=== PATIENT | male | born 1940 | race Caucasian/White ===

== ENCOUNTER 2016-11-29 14:34 | Emergency (ER) | payer MEDICAID, OTHER ==
[~2016-11-29] VITALS: Ht 160 cm; Wt 77.1 kg
[2016-11-29] MEDS ORDERED: ATEN100T PO (15:00)
[2016-11-29] MEDS ORDERED: MYRB50TA PO (15:00)
[2016-11-29] MEDS ORDERED: ALLO15TA PO (15:00)
[2016-11-29] MEDS ORDERED: CARB10TACH PO (15:00)
[2016-11-29] MEDS ORDERED: OMEP40CA2 PO (15:00)
[2016-11-29] MEDS ORDERED: ATOR1TAB18 PO (15:00)
[2016-11-29] MEDS ORDERED: CLOP75TA2 PO (15:00)
[2016-11-29 16:52] LABS: BASO % 0.3 % (0.0-1.0); EOS # 0.2 K/mm3 (0.0-0.50); EOS % 2.6 % (0.0-3.0); LARGE UNSTAINED CELL # 0.3 K/mm3 (0.0-0.4); LARGE UNSTAINED CELL % 5.2 % (0.0-4.0); LYMPH # 1.4 K/mm3 (1.5-4.5); LYMPH % 21.7 % (24.0-44.0); MEAN CORPUSCULAR HEMOGLOBIN 32.5 pg (27.0-33.0); MONO # 0.6 K/mm3 (0.0-0.8); MONO % 8.9 % (0.0-5.0); NEUTROPHILS # 3.9 K/mm3 (1.8-7.7); NEUTROPHILS % 61.4 % (36.0-66.0); PLATELET COUNT, AUTOMATED 200 k/mm3 (150-450); RED CELL DISTRIBUTION WIDTH 14.7 % (11.5-14.5); WHITE BLOOD COUNT 6.4 K/mm3 (4.0-10.0)
[2016-11-29 17:11] LABS: CALCIUM LEVEL 8.1 MG/DL (8.8-10.2); CREATININE FOR GFR 1.35 MG/DL (0.70-1.30); GLOMERULAR FILTRATION RATE 54.7 (>42); POTASSIUM SERUM 4.2 MEQ/L (3.5-5.1)
[2016-11-29 18:55] VITALS: BP 137/74
== END 2016-11-29 18:56 | disposition home or self-care (01) ==
LOC: EDBD 14:34 → M ED 15:48
DX: I95.1 Orthostatic hypotension (principal); F17.210 Nicotine dependence, cigarettes, uncomplicated; Z86.73 Personal history of transient ischemic attack (TIA), and cerebral infarction without residual deficits; I51.9 Heart disease, unspecified; Z79.01 Long term (current) use of anticoagulants; I10 Essential (primary) hypertension

== ENCOUNTER → 2017-03-15 | Outpatient (REF) | payer OTHER ==
[~2017-03-15] MED LIST: ALLO15TA PO; ATEN100T PO; ATOR80TA59 PO; CARB10TACH PO; CLOP75TA2 PO; MYRB50TA PO; OMEP40CA2 PO
== END ==
LOC: M LAB REF 12:42
PROVIDERS: ATTEND Physician Assistant
DX: M79.642 Pain in left hand (principal)

== ENCOUNTER → 2017-08-21 | Outpatient (CLI) | payer BC ==
[2017-08-21 11:35] LABS: HEMATOCRIT 40.3 % (42.0-52.0); HEMOGLOBIN 13.4 g/dl (14.0-18.0); MEAN CORPUSCULAR HEMOGLOBIN 29.3 pg (27.0-33.0); MEAN CORPUSCULAR HGB CONC 33.3 g/dl (32.0-36.5); MEAN CORPUSCULAR VOLUME 88.2 fl (80.0-96.0); PLATELET COUNT, AUTOMATED 393 10^3/uL (150-450); RED BLOOD COUNT 4.57 10^6/uL (4.30-6.10); RED CELL DISTRIBUTION WIDTH 14.6 % (11.5-14.5)
[2017-08-21 11:38] LABS: POSITIVE DIFF POS FLAG; WHITE BLOOD COUNT 13.9 10^3/uL (4.0-10.0)
[2017-08-21 11:39] LABS: ADD MANUAL DIFFER YES; DIFF SLIDE NUMBER 119
[2017-08-21 11:58] LABS: ALBUMIN 3.6 GM/DL (3.2-5.2); ALBUMIN/GLOBULIN RATIO 1.16 (1.00-1.93); ALKALINE PHOSPHATASE 181 U/L (45-117); ALT/SGPT 15 U/L (12-78); ANION GAP 9 MEQ/L (8-16); AST/SGOT 15 U/L (7-37); BILIRUBIN,TOTAL 0.6 MG/DL (0.2-1.0); BLOOD UREA NITROGEN 12 MG/DL (7-18); CALCIUM LEVEL 8.5 MG/DL (8.8-10.2); CARBON DIOXIDE LEVEL 28 MEQ/L (21-32); CHLORIDE LEVEL 98 MEQ/L (98-107); CREATININE FOR GFR 1.13 MG/DL (0.70-1.30); GLOMERULAR FILTRATION RATE > 60.0 (>42); GLUCOSE, FASTING 94 MG/DL (83-110); LIPASE 77 U/L (73-393); SODIUM LEVEL 135 MEQ/L (136-145); TOTAL PROTEIN 6.7 GM/DL (6.4-8.2)
[2017-08-21 12:15] LABS: ATYPICAL LYMPH 17 % (0-5); BASOPHILS 1 % (0-4); EOSINOPHILS 5 % (0-5); LYMPHOCYTES 21 % (16-52); MONOCYTES 7 % (0-8); NEUTROPHILS 49 % (35-75)
[2017-08-21 12:29] LABS: PLATELET ESTIMATE NORMAL (NORMAL)
== END ==
LOC: M LAB 10:58
DX: R19.7 Diarrhea, unspecified (principal)
CPT/HCPCS: 83690

== ENCOUNTER 2017-08-22 07:54 | Emergency (ER) | payer BC | END 2017-08-22 09:06 | disposition home or self-care (01) | LOC: M ED 07:54 | DX: R19.7 Diarrhea, unspecified (principal); L30.8 Other specified dermatitis; R05 Cough; I10 Essential (primary) hypertension; R56.9 Unspecified convulsions; R29.6 Repeated falls; R39.81 Functional urinary incontinence; Z79.01 Long term (current) use of anticoagulants; Z79.899 Other long term (current) drug therapy; Z98.890 Other specified postprocedural states; Z85.89 Personal history of malignant neoplasm of other organs and systems | CPT/HCPCS: 99282 ==

== ENCOUNTER 2017-09-09 16:45 | Emergency (ER) | payer BC ==
[2017-09-09 19:07] LABS: BASO # 0.1 10^3/uL (0.0-0.2); BASO % 0.5 % (0.0-1.0); EOS % 8.8 % (0.0-3.0); HEMATOCRIT 40.6 % (42.0-52.0); HEMOGLOBIN 13.5 g/dl (14.0-18.0); IMMATURE GRANULOCYTE % 0.2 % (0-3.0); LYMPH # 3.8 10^3/uL (1.5-4.5); LYMPH % 34.6 % (24.0-44.0); MEAN CORPUSCULAR HGB CONC 33.3 g/dl (32.0-36.5); MEAN CORPUSCULAR VOLUME 87.3 fl (80.0-96.0); MONO # 0.7 10^3/uL (0.0-0.8); MONO % 6.7 % (0.0-5.0); NEUTROPHILS # 5.5 10^3/uL (1.8-7.7); NEUTROPHILS % 49.2 % (36.0-66.0); PLATELET COUNT, AUTOMATED 218 10^3/uL (150-450); RED BLOOD COUNT 4.65 10^6/uL (4.30-6.10); RED CELL DISTRIBUTION WIDTH 14.5 % (11.5-14.5); WHITE BLOOD COUNT 11.1 10^3/uL (4.0-10.0)
[2017-09-09 19:53] LABS: ALBUMIN 3.7 GM/DL (3.2-5.2); ALBUMIN/GLOBULIN RATIO 1.28 (1.00-1.93); ALKALINE PHOSPHATASE 194 U/L (45-117); ALT/SGPT 19 U/L (12-78); ANION GAP 9 MEQ/L (8-16); AST/SGOT 16 U/L (7-37); BILIRUBIN,DIRECT < 0.1 MG/DL (0.0-0.2); BILIRUBIN,TOTAL 0.2 MG/DL (0.2-1.0); BLOOD UREA NITROGEN 13 MG/DL (7-18); CALCIUM LEVEL 8.5 MG/DL (8.8-10.2); CARBON DIOXIDE LEVEL 28 MEQ/L (21-32); CHLORIDE LEVEL 101 MEQ/L (98-107); CREATININE FOR GFR 1.05 MG/DL (0.70-1.30); GLOMERULAR FILTRATION RATE > 60.0 (>42); GLUCOSE, FASTING 101 MG/DL (70-100); POTASSIUM SERUM 4.3 MEQ/L (3.5-5.1); SODIUM LEVEL 138 MEQ/L (136-145); TOTAL PROTEIN 6.6 GM/DL (6.4-8.2)
[2017-09-09 19:55] LABS: ERYTHROCYTE SEDIMENTATION RATE 7 mm/hr (0-20)
[2017-09-09] MEDS: cloNIDine 0.2 MG TAB PO (20:19)
== END 2017-09-09 21:15 | disposition home or self-care (01) ==
LOC: M ED 16:45
DX: I10 Essential (primary) hypertension (principal); Z79.01 Long term (current) use of anticoagulants; Z79.899 Other long term (current) drug therapy; Z86.73 Personal history of transient ischemic attack (TIA), and cerebral infarction without residual deficits; Z87.891 Personal history of nicotine dependence; Z98.890 Other specified postprocedural states
CPT/HCPCS: 71045

== ENCOUNTER 2017-10-14 08:43 | Emergency (ER) | payer MEDICARE, BC | END 2017-10-14 09:35 | disposition home or self-care (01) | LOC: M ED 08:43 | DX: L73.9 Follicular disorder, unspecified (principal); I10 Essential (primary) hypertension; Z79.899 Other long term (current) drug therapy; Z87.891 Personal history of nicotine dependence | CPT/HCPCS: 99282 ==

== ENCOUNTER 2017-11-15 07:32 | Emergency (ER) | payer MEDICARE ==
[2017-11-15 08:52] LABS: BASO # 0.1 10^3/uL (0.0-0.2); BASO % 0.9 % (0.0-1.0); EOS % 19.5 % (0.0-3.0); HEMATOCRIT 36.9 % (42.0-52.0); HEMOGLOBIN 12.1 g/dl (13.5-17.5); IMMATURE GRANULOCYTE % 0.2 % (0-3.0); LYMPH # 2.8 10^3/uL (1.5-4.5); LYMPH % 27.3 % (24.0-44.0); MEAN CORPUSCULAR HEMOGLOBIN 28.9 pg (27.0-33.0); MEAN CORPUSCULAR HGB CONC 32.8 g/dl (32.0-36.5); MEAN CORPUSCULAR VOLUME 88.3 fl (80.0-96.0); MONO # 0.8 10^3/uL (0.0-0.8); MONO % 7.5 % (0.0-5.0); NEUTROPHILS # 4.6 10^3/uL (1.8-7.7); NEUTROPHILS % 44.6 % (36.0-66.0); PLATELET COUNT, AUTOMATED 251 10^3/uL (150-450); RED BLOOD COUNT 4.18 10^6/uL (4.30-6.10); RED CELL DISTRIBUTION WIDTH 14.5 % (11.5-14.5); WHITE BLOOD COUNT 10.3 10^3/uL (4.0-10.0)
[2017-11-15 09:04] LABS: INR 0.88
[2017-11-15 09:14] LABS: ERYTHROCYTE SEDIMENTATION RATE 9 mm/hr (0-20)
[2017-11-15 09:22] LABS: LACTIC ACID SEPSIS PROTOCOL 1.4 MMOL/L (0.4-2.0)
[2017-11-15 09:44] LABS: ALBUMIN 3.7 GM/DL (3.2-5.2); ALBUMIN/GLOBULIN RATIO 1.28 (1.00-1.93); ALKALINE PHOSPHATASE 279 U/L (45-117); ALT/SGPT 15 U/L (12-78); ANION GAP 8 MEQ/L (8-16); AST/SGOT 18 U/L (7-37); BILIRUBIN,DIRECT < 0.1 MG/DL (0.0-0.2); BILIRUBIN,TOTAL 0.3 MG/DL (0.2-1.0); BLOOD UREA NITROGEN 12 MG/DL (7-18); C REACTIVE PROTEIN QUANTITATIV 1.52 MG/DL (0.00-0.30); CALCIUM LEVEL 8.5 MG/DL (8.8-10.2); CARBON DIOXIDE LEVEL 28 MEQ/L (21-32); CHLORIDE LEVEL 102 MEQ/L (98-107); CREATININE FOR GFR 1.08 MG/DL (0.70-1.30); GLOMERULAR FILTRATION RATE > 60.0 (>42); GLUCOSE, FASTING 96 MG/DL (70-100); POTASSIUM SERUM 3.9 MEQ/L (3.5-5.1); SODIUM LEVEL 138 MEQ/L (136-145); TOTAL PROTEIN 6.6 GM/DL (6.4-8.2)
[2017-11-15] MEDS ORDERED: ISOVUE-370 76% 100ML VIAL (Q9967) As Ordered (09:46)
[2017-11-15] MEDS ORDERED: FLUORESCEIN OPHTH 1 MG STRIP As Ordered (10:31)
[2017-11-15] MEDS: VANCOMYCIN HCL 1,000 MG, VIAL MATE ADAPTER 1 EACH in D5W 250 ML IV (10:50)
== END 2017-11-15 12:00 | disposition home or self-care (01) ==
LOC: M ED 07:32
DX: L03.211 Cellulitis of face (principal); I10 Essential (primary) hypertension; R60.0 Localized edema; Z79.01 Long term (current) use of anticoagulants

== ENCOUNTER 2017-11-16 08:25 | Inpatient (IN) | payer MEDICARE ==
[2017-11-16] MEDS: NS 1,000 ML IV (09:17)
[2017-11-16] MEDS: VANCOMYCIN HCL 1,000 MG, VIAL MATE ADAPTER 1 EACH in D5W 250 ML IV (09:17)
[2017-11-16 09:18] LABS: BASO # 0.1 10^3/uL (0.0-0.2); EOS # 2.4 10^3/uL (0.0-0.50); HEMATOCRIT 39.1 % (42.0-52.0); HEMOGLOBIN 12.9 g/dl (13.5-17.5); IMMATURE GRANULOCYTE % 0.1 % (0-3.0); LYMPH % 29.7 % (24.0-44.0); MEAN CORPUSCULAR HEMOGLOBIN 29.6 pg (27.0-33.0); MEAN CORPUSCULAR VOLUME 89.7 fl (80.0-96.0); MONO # 0.8 10^3/uL (0.0-0.8); MONO % 7.9 % (0.0-5.0); NEUTROPHILS # 3.7 10^3/uL (1.8-7.7); NEUTROPHILS % 37.5 % (36.0-66.0); PLATELET COUNT, AUTOMATED 257 10^3/uL (150-450); RED BLOOD COUNT 4.36 10^6/uL (4.30-6.10); RED CELL DISTRIBUTION WIDTH 14.6 % (11.5-14.5); WHITE BLOOD COUNT 9.9 10^3/uL (4.0-10.0)
[2017-11-16 09:39] LABS: EOS % 23.8 % (0.0-3.0); POSITIVE DIFF POS FLAG
[2017-11-16 09:50] LABS: ALBUMIN 3.8 GM/DL (3.2-5.2); ALBUMIN/GLOBULIN RATIO 1.31 (1.00-1.93); ALKALINE PHOSPHATASE 296 U/L (45-117); ALT/SGPT 18 U/L (12-78); ANION GAP 5 MEQ/L (8-16); AST/SGOT 25 U/L (7-37); BILIRUBIN,DIRECT < 0.1 MG/DL (0.0-0.2); BILIRUBIN,TOTAL 0.4 MG/DL (0.2-1.0); BLOOD UREA NITROGEN 10 MG/DL (7-18); CALCIUM LEVEL 8.7 MG/DL (8.8-10.2); CARBON DIOXIDE LEVEL 29 MEQ/L (21-32); CHLORIDE LEVEL 103 MEQ/L (98-107); CREATININE FOR GFR 1.08 MG/DL (0.70-1.30); GLOMERULAR FILTRATION RATE > 60.0 (>42); GLUCOSE, FASTING 94 MG/DL (70-100); POTASSIUM SERUM 4.5 MEQ/L (3.5-5.1); SODIUM LEVEL 137 MEQ/L (136-145); TOTAL PROTEIN 6.7 GM/DL (6.4-8.2)
[2017-11-16 09:50] LABS: LACTIC ACID SEPSIS PROTOCOL 1.6 MMOL/L (0.4-2.0)
[2017-11-16] MEDS ORDERED: ONDANSETRON 4MG/2ML VIAL (J2405) IV (11:15)
[2017-11-16 13:04] LABS: C REACTIVE PROTEIN QUANTITATIV 1.53 MG/DL (0.00-0.30)
[2017-11-16] MEDS: HEPARIN SOD (PORCINE) 5000 UNITS/ML VIAL SC ×2 (14:03→21:15)
[2017-11-16] MEDS: carBAMazepine 100 MG *1/2* TAB PO ×2 (17:27→21:15)
[2017-11-16] MEDS: ACETAMINOPHEN TAB 650MG DOSE (2X325MG) PO (18:14)
[2017-11-16] MEDS: MUPIROCIN 2% OINT 22 GM TUBE TOP (21:16)
[2017-11-17] MEDS: HEPARIN SOD (PORCINE) 5000 UNITS/ML VIAL SC ×3 (05:45→21:25)
[2017-11-17 07:21] LABS: HEMATOCRIT 36.3 % (42.0-52.0); HEMOGLOBIN 11.9 g/dl (13.5-17.5); MEAN CORPUSCULAR HEMOGLOBIN 28.7 pg (27.0-33.0); MEAN CORPUSCULAR HGB CONC 32.8 g/dl (32.0-36.5); MEAN CORPUSCULAR VOLUME 87.5 fl (80.0-96.0); PLATELET COUNT, AUTOMATED 256 10^3/uL (150-450); RED BLOOD COUNT 4.15 10^6/uL (4.30-6.10); RED CELL DISTRIBUTION WIDTH 14.4 % (11.5-14.5)
[2017-11-17 07:38] LABS: ANION GAP 4 MEQ/L (8-16); BLOOD UREA NITROGEN 11 MG/DL (7-18); C REACTIVE PROTEIN QUANTITATIV 1.25 MG/DL (0.00-0.30); CALCIUM LEVEL 8.8 MG/DL (8.8-10.2); CARBON DIOXIDE LEVEL 30 MEQ/L (21-32); CHLORIDE LEVEL 105 MEQ/L (98-107); CREATININE FOR GFR 0.98 MG/DL (0.70-1.30); GLOMERULAR FILTRATION RATE > 60.0 (>42); GLUCOSE, FASTING 92 MG/DL (70-100); MAGNESIUM LEVEL 2.2 MG/DL (1.8-2.4); POTASSIUM SERUM 3.8 MEQ/L (3.5-5.1); SODIUM LEVEL 139 MEQ/L (136-145)
[2017-11-17] MEDS: carBAMazepine 100 MG *1/2* TAB PO ×3 (08:41→21:24)
[2017-11-17] MEDS: OMEPRAZOLE 20 MG CAP PO (08:41)
[2017-11-17] MEDS: ATORVASTATIN 20 MG TAB PO (08:41)
[2017-11-17] MEDS: CLOPIDOGREL 75 MG TAB PO (08:42)
[2017-11-17] MEDS: ATENOLOL 50 MG TAB PO (08:42)
[2017-11-17] MEDS: VANCOMYCIN HCL 1,000 MG, VIAL MATE ADAPTER 1 EACH in D5W 250 ML IV (08:42)
[2017-11-17] MEDS: ALLOPURINOL 300 MG TAB PO (08:42)
[2017-11-17] MEDS: MUPIROCIN 2% OINT 22 GM TUBE TOP ×2 (08:42→21:24)
[2017-11-17] MEDS: POLYVINYL ALCOHOL OPHTH SOLN 15 ML(LIQUITEARS) OU (21:25)
[2017-11-17] MEDS: ACETAMINOPHEN TAB 650MG DOSE (2X325MG) PO (21:28)
[2017-11-18] MEDS: HEPARIN SOD (PORCINE) 5000 UNITS/ML VIAL SC ×3 (05:39→20:38)
[2017-11-18 08:15] LABS: HEMATOCRIT 35.3 % (42.0-52.0); HEMOGLOBIN 11.6 g/dl (13.5-17.5); MEAN CORPUSCULAR HGB CONC 32.9 g/dl (32.0-36.5); MEAN CORPUSCULAR VOLUME 88.3 fl (80.0-96.0); PLATELET COUNT, AUTOMATED 227 10^3/uL (150-450); RED CELL DISTRIBUTION WIDTH 14.4 % (11.5-14.5); WHITE BLOOD COUNT 8.5 10^3/uL (4.0-10.0)
[2017-11-18 08:32] LABS: ANION GAP 6 MEQ/L (8-16); BLOOD UREA NITROGEN 12 MG/DL (7-18); CALCIUM LEVEL 8.6 MG/DL (8.8-10.2); CARBON DIOXIDE LEVEL 29 MEQ/L (21-32); CHLORIDE LEVEL 104 MEQ/L (98-107); CREATININE FOR GFR 1.08 MG/DL (0.70-1.30); GLOMERULAR FILTRATION RATE > 60.0 (>42); GLUCOSE, FASTING 153 MG/DL (70-100); MAGNESIUM LEVEL 2.3 MG/DL (1.8-2.4); POTASSIUM SERUM 3.8 MEQ/L (3.5-5.1); SODIUM LEVEL 139 MEQ/L (136-145); VANCOMYCIN LEVEL TROUGH 5.8 UG/ML (10.0-20.0)
[2017-11-18] MEDS: ALLOPURINOL 300 MG TAB PO (09:01)
[2017-11-18] MEDS: CLOPIDOGREL 75 MG TAB PO (09:01)
[2017-11-18] MEDS: OMEPRAZOLE 20 MG CAP PO (09:01)
[2017-11-18] MEDS: carBAMazepine 100 MG *1/2* TAB PO ×3 (09:01→20:37)
[2017-11-18] MEDS: MUPIROCIN 2% OINT 22 GM TUBE TOP ×2 (09:01→20:38)
[2017-11-18] MEDS: ATENOLOL 50 MG TAB PO (09:01)
[2017-11-18] MEDS: VANCOMYCIN HCL 1,000 MG, VIAL MATE ADAPTER 1 EACH in D5W 250 ML IV ×3 (09:01→20:38)
[2017-11-18] MEDS: ATORVASTATIN 20 MG TAB PO (09:01)
[2017-11-19] MEDS: HEPARIN SOD (PORCINE) 5000 UNITS/ML VIAL SC ×3 (05:41→21:37)
[2017-11-19 06:28] LABS: BASO # 0.1 10^3/uL (0.0-0.2); BASO % 0.6 % (0.0-1.0); EOS # 2.2 10^3/uL (0.0-0.50); HEMATOCRIT 34.9 % (42.0-52.0); HEMOGLOBIN 11.5 g/dl (13.5-17.5); IMMATURE GRANULOCYTE % 0.2 % (0-3.0); LYMPH # 2.9 10^3/uL (1.5-4.5); LYMPH % 29.7 % (24.0-44.0); MEAN CORPUSCULAR HEMOGLOBIN 29.2 pg (27.0-33.0); MEAN CORPUSCULAR VOLUME 88.6 fl (80.0-96.0); MONO # 0.9 10^3/uL (0.0-0.8); MONO % 8.7 % (0.0-5.0); NEUTROPHILS # 3.8 10^3/uL (1.8-7.7); NEUTROPHILS % 38.9 % (36.0-66.0); PLATELET COUNT, AUTOMATED 238 10^3/uL (150-450); RED BLOOD COUNT 3.94 10^6/uL (4.30-6.10); RED CELL DISTRIBUTION WIDTH 14.2 % (11.5-14.5); WHITE BLOOD COUNT 9.8 10^3/uL (4.0-10.0)
[2017-11-19 06:29] LABS: EOS % 21.9 % (0.0-3.0); POSITIVE DIFF POS FLAG
[2017-11-19 06:57] LABS: ANION GAP 5 MEQ/L (8-16); BLOOD UREA NITROGEN 10 MG/DL (7-18); C REACTIVE PROTEIN QUANTITATIV 1.06 MG/DL (0.00-0.30); CALCIUM LEVEL 8.5 MG/DL (8.8-10.2); CARBON DIOXIDE LEVEL 30 MEQ/L (21-32); CHLORIDE LEVEL 99 MEQ/L (98-107); CREATININE FOR GFR 0.98 MG/DL (0.70-1.30); GLOMERULAR FILTRATION RATE > 60.0 (>42); GLUCOSE, FASTING 99 MG/DL (70-100); MAGNESIUM LEVEL 2.2 MG/DL (1.8-2.4); POTASSIUM SERUM 3.8 MEQ/L (3.5-5.1); SODIUM LEVEL 134 MEQ/L (136-145)
[2017-11-19] MEDS: VANCOMYCIN HCL 1,000 MG, VIAL MATE ADAPTER 1 EACH in D5W 250 ML IV (09:16)
[2017-11-19] MEDS: carBAMazepine 100 MG *1/2* TAB PO ×3 (09:16→21:37)
[2017-11-19] MEDS: ATORVASTATIN 20 MG TAB PO (09:17)
[2017-11-19] MEDS: ALLOPURINOL 300 MG TAB PO (09:17)
[2017-11-19] MEDS: ATENOLOL 50 MG TAB PO (09:17)
[2017-11-19] MEDS: CLOPIDOGREL 75 MG TAB PO (09:17)
[2017-11-19] MEDS: OMEPRAZOLE 20 MG CAP PO (09:17)
[2017-11-19] MEDS: MUPIROCIN 2% OINT 22 GM TUBE TOP ×2 (09:18→21:36)
[2017-11-19] MEDS: predniSONE 20 MG TAB PO (15:23)
[2017-11-20 06:00] LABS: HEMATOCRIT 38.5 % (42.0-52.0); HEMOGLOBIN 12.7 g/dl (13.5-17.5); MEAN CORPUSCULAR HEMOGLOBIN 28.5 pg (27.0-33.0); MEAN CORPUSCULAR VOLUME 86.5 fl (80.0-96.0); PLATELET COUNT, AUTOMATED 261 10^3/uL (150-450); RED BLOOD COUNT 4.45 10^6/uL (4.30-6.10); RED CELL DISTRIBUTION WIDTH 13.9 % (11.5-14.5); WHITE BLOOD COUNT 8.8 10^3/uL (4.0-10.0)
[2017-11-20] MEDS: HEPARIN SOD (PORCINE) 5000 UNITS/ML VIAL SC (06:02)
[2017-11-20 06:17] LABS: ANION GAP 6 MEQ/L (8-16); BLOOD UREA NITROGEN 11 MG/DL (7-18); C REACTIVE PROTEIN QUANTITATIV 1.05 MG/DL (0.00-0.30); CARBON DIOXIDE LEVEL 30 MEQ/L (21-32); CHLORIDE LEVEL 100 MEQ/L (98-107); CREATININE FOR GFR 0.96 MG/DL (0.70-1.30); GLOMERULAR FILTRATION RATE > 60.0 (>42); GLUCOSE, FASTING 98 MG/DL (70-100); MAGNESIUM LEVEL 2.4 MG/DL (1.8-2.4); SODIUM LEVEL 136 MEQ/L (136-145)
[2017-11-20] MEDS: ATENOLOL 50 MG TAB PO (06:37)
[2017-11-20] MEDS: MUPIROCIN 2% OINT 22 GM TUBE TOP (09:00)
[2017-11-20] MEDS: CLOPIDOGREL 75 MG TAB PO (09:54)
[2017-11-20] MEDS: OMEPRAZOLE 20 MG CAP PO (09:55)
[2017-11-20] MEDS: predniSONE 20 MG TAB PO (09:55)
[2017-11-20] MEDS: ATORVASTATIN 20 MG TAB PO (09:56)
[2017-11-20] MEDS: carBAMazepine 100 MG *1/2* TAB PO (09:56)
[2017-11-20] MEDS: FUROSEMIDE 40 MG/4 ML VIAL (J1940) IV (11:18)
== END 2017-11-20 13:34 | disposition home health service (06) | DRG 607 ==
LOC: M ED 08:25 → M ED INP 11:03 → M MSPAV 13:25
DX: L27.0 Generalized skin eruption due to drugs and medicaments taken internally (principal); C91.90 Lymphoid leukemia, unspecified not having achieved remission; E78.5 Hyperlipidemia, unspecified; G40.909 Epilepsy, unspecified, not intractable, without status epilepticus; I10 Essential (primary) hypertension; R60.0 Localized edema; M10.9 Gout, unspecified; R29.6 Repeated falls; D72.1 Eosinophilia; T42.1X5A Adverse effect of iminostilbenes, initial encounter; T50.4X5A Adverse effect of drugs affecting uric acid metabolism, initial encounter; Z86.73 Personal history of transient ischemic attack (TIA), and cerebral infarction without residual deficits; Z79.02 Long term (current) use of antithrombotics/antiplatelets; Z87.891 Personal history of nicotine dependence; Z79.899 Other long term (current) drug therapy

== ENCOUNTER → 2017-12-09 | Outpatient (CLI) | payer MEDICARE | LOC: M RAD 12:15 | DX: R60.9 Edema, unspecified (principal) | CPT/HCPCS: 93971 ==

== ENCOUNTER → 2017-12-16 | Outpatient (REF) | payer BC ==
[2017-12-16 20:47] LABS: ALBUMIN 3.7 GM/DL (3.2-5.2); ALBUMIN/GLOBULIN RATIO 1.32 (1.00-1.93); ALKALINE PHOSPHATASE 282 U/L (45-117); ALT/SGPT 19 U/L (12-78); ANION GAP 7 MEQ/L (8-16); AST/SGOT 16 U/L (7-37); BILIRUBIN,TOTAL 0.3 MG/DL (0.2-1.0); BLOOD UREA NITROGEN 12 MG/DL (7-18); CALCIUM LEVEL 8.5 MG/DL (8.8-10.2); CARBON DIOXIDE LEVEL 31 MEQ/L (21-32); CHLORIDE LEVEL 103 MEQ/L (98-107); CREATININE FOR GFR 1.28 MG/DL (0.70-1.30); GLUCOSE, FASTING 119 MG/DL (70-100); POTASSIUM SERUM 3.5 MEQ/L (3.5-5.1); SODIUM LEVEL 141 MEQ/L (136-145); TOTAL PROTEIN 6.5 GM/DL (6.4-8.2)
[2017-12-16 20:54] LABS: BASO # 0.1 10^3/uL (0.0-0.2); BASO % 0.5 % (0.0-1.0); EOS # 3.6 10^3/uL (0.0-0.50); HEMATOCRIT 38.9 % (42.0-52.0); HEMOGLOBIN 12.7 g/dl (13.5-17.5); IMMATURE GRANULOCYTE % 0.2 % (0-3.0); LYMPH # 2.5 10^3/uL (1.5-4.5); LYMPH % 23.9 % (24.0-44.0); MEAN CORPUSCULAR HEMOGLOBIN 29.2 pg (27.0-33.0); MEAN CORPUSCULAR HGB CONC 32.6 g/dl (32.0-36.5); MEAN CORPUSCULAR VOLUME 89.4 fl (80.0-96.0); MONO # 0.9 10^3/uL (0.0-0.8); MONO % 8.3 % (0.0-5.0); NEUTROPHILS # 3.5 10^3/uL (1.8-7.7); NEUTROPHILS % 32.8 % (36.0-66.0); PLATELET COUNT, AUTOMATED 239 10^3/uL (150-450); RED BLOOD COUNT 4.35 10^6/uL (4.30-6.10); RED CELL DISTRIBUTION WIDTH 13.9 % (11.5-14.5); WHITE BLOOD COUNT 10.6 10^3/uL (4.0-10.0)
[2017-12-16 21:24] LABS: EOS % 34.3 % (0.0-3.0); POSITIVE DIFF POS FLAG
== END ==
LOC: M SFHCLERA 16:17
DX: L30.8 Other specified dermatitis (principal)
CPT/HCPCS: 80053

== ENCOUNTER → 2017-12-28 | Outpatient (REF) | payer BC ==
[2017-12-30 00:06] LABS: TISSUE TRANSGLUTAMINASE IgG <2 U/mL (0-5)
== END ==
LOC: M SFHCLERA 09:07
DX: L13.9 Bullous disorder, unspecified (principal)
CPT/HCPCS: 86256

== ENCOUNTER → 2018-01-03 | Outpatient (REF) | payer BC, OTHER | LOC: M SFHCLERA 18:04 | DX: L29.9 Pruritus, unspecified (principal) | CPT/HCPCS: 88300 ==

== ENCOUNTER → 2018-01-26 | Outpatient (REF) | payer OTHER | LOC: M SFHCADAM 08:24 | DX: R63.0 Anorexia (principal); R74.8 Abnormal levels of other serum enzymes; Z53.8 Procedure and treatment not carried out for other reasons ==

== ENCOUNTER → 2018-01-30 | Outpatient (CLI) | payer OTHER ==
[2018-01-30 18:58] LABS: ALBUMIN 3.5 GM/DL (3.2-5.2); ALKALINE PHOSPHATASE 220 U/L (45-117); ALT/SGPT 26 U/L (12-78); ANION GAP 9 MEQ/L (8-16); AST/SGOT 21 U/L (7-37); BILIRUBIN,TOTAL 0.3 MG/DL (0.2-1.0); BLOOD UREA NITROGEN 21 MG/DL (7-18); CALCIUM LEVEL 8.2 MG/DL (8.8-10.2); CARBON DIOXIDE LEVEL 27 MEQ/L (21-32); CHLORIDE LEVEL 108 MEQ/L (98-107); CREATININE FOR GFR 1.42 MG/DL (0.70-1.30); FREE T4 0.79 NG/DL (0.76-1.46); GAMMA GLUTAMYLTRANSPEPTIDASE 67 U/L (15-85); GLOMERULAR FILTRATION RATE 51.5 (>42); GLUCOSE, FASTING 113 MG/DL (70-100); POTASSIUM SERUM 4.3 MEQ/L (3.5-5.1); SODIUM LEVEL 144 MEQ/L (136-145)
[2018-01-31 09:06] LABS: TOTAL 25(OH) VITAMIN D 18.1 NG/ML (30.0-100.0)
== END ==
LOC: M ADAMS 08:00
DX: R63.0 Anorexia (principal); R74.8 Abnormal levels of other serum enzymes
CPT/HCPCS: 82977

== ENCOUNTER → 2018-02-07 | Outpatient (REF) | payer OTHER | LOC: M SFHCLERA 09:19 | DX: I87.322 Chronic venous hypertension (idiopathic) with inflammation of left lower extremity (principal) | CPT/HCPCS: 87077; 87186 ==

== ENCOUNTER → 2018-02-14 | Outpatient (CLI) | payer OTHER | LOC: M RAD 14:14 | DX: R60.0 Localized edema (principal) | CPT/HCPCS: 93971 ==

== ENCOUNTER 2018-02-20 04:32 | Emergency (ER) | payer OTHER ==
[2018-02-20] MEDS: traMADol 50 MG TAB PO (06:53)
== END 2018-02-20 08:18 | disposition home or self-care (01) ==
LOC: M ED 04:32
DX: S93.411A Sprain of calcaneofibular ligament of right ankle, initial encounter (principal); X50.1XXA Overexertion from prolonged static or awkward postures, initial encounter; Y92.099 Unspecified place in other non-institutional residence as the place of occurrence of the external cause; Y93.9 Activity, unspecified; Y99.9 Unspecified external cause status; I10 Essential (primary) hypertension; N40.0 Benign prostatic hyperplasia without lower urinary tract symptoms; G89.29 Other chronic pain; M54.9 Dorsalgia, unspecified; Z85.6 Personal history of leukemia; M77.41 Metatarsalgia, right foot; M77.31 Calcaneal spur, right foot; Z79.899 Other long term (current) drug therapy
CPT/HCPCS: 73610

== ENCOUNTER → 2018-03-02 | Outpatient (CLI) | payer OTHER | LOC: M RAD 10:27 | DX: S92.351A Displaced fracture of fifth metatarsal bone, right foot, initial encounter for closed fracture (principal); X58.XXXA Exposure to other specified factors, initial encounter; Y92.59 Other trade areas as the place of occurrence of the external cause | CPT/HCPCS: 73700 ==

== ENCOUNTER 2018-05-22 21:10 | Emergency (ER) | payer OTHER ==
[2018-05-22] MEDS: NITROGLYCERIN 2% OINT 1 GM *U/D* PKT TOP (22:35)
[2018-05-22 22:44] LABS: HEMATOCRIT 39.4 % (42.0-52.0); HEMOGLOBIN 12.7 g/dl (13.5-17.5); MEAN CORPUSCULAR HEMOGLOBIN 28.4 pg (27.0-33.0); MEAN CORPUSCULAR HGB CONC 32.2 g/dl (32.0-36.5); MEAN CORPUSCULAR VOLUME 88.1 fl (80.0-96.0); PLATELET COUNT, AUTOMATED 258 10^3/uL (150-450); RED BLOOD COUNT 4.47 10^6/uL (4.30-6.10); RED CELL DISTRIBUTION WIDTH 15.5 % (11.5-14.5); WHITE BLOOD COUNT 14.1 10^3/uL (4.0-10.0)
[2018-05-22 22:54] LABS: INR 0.94; PROTHROMBIN TIME 12.7 SECONDS (12.1-14.4)
[2018-05-22 22:55] LABS: POSITIVE DIFF POS FLAG; POSITIVE MORPH POS FLAG
[2018-05-22 22:56] LABS: ADD MANUAL DIFFER YES; DIFF SLIDE NUMBER 161
[2018-05-22 23:00] LABS: ATYPICAL LYMPH 9 % (0-5); EOSINOPHILS 30 % (0-5); LYMPHOCYTES 21 % (16-52); MONOCYTES 5 % (0-8); NEUTROPHILS 35 % (35-75)
[2018-05-22 23:01] LABS: PLATELET ESTIMATE NORMAL (NORMAL)
[2018-05-22 23:15] LABS: ALBUMIN 3.4 GM/DL (3.2-5.2); ALBUMIN/GLOBULIN RATIO 1.17 (1.00-1.93); ALKALINE PHOSPHATASE 263 U/L (45-117); ALT/SGPT 16 U/L (12-78); ANION GAP 8 MEQ/L (8-16); AST/SGOT 16 U/L (7-37); BILIRUBIN,DIRECT < 0.1 MG/DL (0.0-0.2); BILIRUBIN,TOTAL 0.2 MG/DL (0.2-1.0); BLOOD UREA NITROGEN 22 MG/DL (7-18); CALCIUM LEVEL 7.9 MG/DL (8.8-10.2); CARBON DIOXIDE LEVEL 28 MEQ/L (21-32); CHLORIDE LEVEL 107 MEQ/L (98-107); CPK CREATINE PHOSPHOKINASE 70 U/L (39-308); CREATININE FOR GFR 1.26 MG/DL (0.70-1.30); GLOMERULAR FILTRATION RATE 59.1 (>42); GLUCOSE, FASTING 83 MG/DL (70-100); MB/CK RELATIVE INDEX 2.14 (< OR =4); NT-PRO BNP 1251 PG/ML (<450); POTASSIUM SERUM 4.2 MEQ/L (3.5-5.1); SODIUM LEVEL 143 MEQ/L (136-145); THYROXINE (T4) 6.5 UG/DL (4.5-12.0); TOTAL PROTEIN 6.3 GM/DL (6.4-8.2); TROPONIN I < 0.02 NG/ML (< 0.10)
[2018-05-22 23:24] LABS: LACTIC ACID SEPSIS PROTOCOL 0.8 MMOL/L (0.4-2.0)
[2018-05-23] MEDS: FUROSEMIDE 40 MG/4 ML VIAL (J1940) IV
== END 2018-05-23 01:23 | disposition home or self-care (01) ==
LOC: M ED 05-23 01:23
DX: I50.9 Heart failure, unspecified (principal); R60.9 Edema, unspecified; R56.9 Unspecified convulsions; Z86.73 Personal history of transient ischemic attack (TIA), and cerebral infarction without residual deficits; Z79.899 Other long term (current) drug therapy; Z79.82 Long term (current) use of aspirin; Z87.891 Personal history of nicotine dependence
CPT/HCPCS: J1940

== ENCOUNTER → 2018-05-23 | Outpatient (CLI) | payer OTHER | LOC: M CARPUL 10:53 | DX: R60.9 Edema, unspecified (principal) | CPT/HCPCS: 93306 ==

== ENCOUNTER 2018-05-25 22:08 | Inpatient (IN) | payer OTHER ==
[2018-05-26 00:38] LABS: HEMOGLOBIN 12.2 g/dl (13.5-17.5); MEAN CORPUSCULAR HGB CONC 31.3 g/dl (32.0-36.5); MEAN CORPUSCULAR VOLUME 89.7 fl (80.0-96.0); PLATELET COUNT, AUTOMATED 229 10^3/uL (150-450); RED BLOOD COUNT 4.35 10^6/uL (4.30-6.10); RED CELL DISTRIBUTION WIDTH 15.9 % (11.5-14.5)
[2018-05-26 00:39] LABS: ADD MANUAL DIFFER YES; DIFF SLIDE NUMBER 90; POSITIVE DIFF POS FLAG; POSITIVE MORPH POS FLAG; WHITE BLOOD COUNT 16.9 10^3/uL (4.0-10.0)
[2018-05-26 01:04] LABS: ANISOCYTOSIS 1+; ATYPICAL LYMPH 4 % (0-5); BASOPHILS 2 % (0-4); EOSINOPHILS 23 % (0-5); HYPOCHROMASIA 1+; LYMPHOCYTES 22 % (16-52); MONOCYTES 8 % (0-8); NEUTROPHILS 41 % (35-75); PLATELET ESTIMATE NORMAL (NORMAL)
[2018-05-26 01:08] LABS: OVALOCYTES 1+; SMUDGE CELLS 1+
[2018-05-26 02:05] LABS: ALBUMIN 2.9 GM/DL (3.2-5.2); ALBUMIN/GLOBULIN RATIO 1.26 (1.00-1.93); ALKALINE PHOSPHATASE 216 U/L (45-117); ALT/SGPT 17 U/L (12-78); ANION GAP 12 MEQ/L (8-16); AST/SGOT 19 U/L (7-37); BILIRUBIN,DIRECT < 0.1 MG/DL (0.0-0.2); BILIRUBIN,TOTAL 0.3 MG/DL (0.2-1.0); BLOOD UREA NITROGEN 28 MG/DL (7-18); CALCIUM LEVEL 7.8 MG/DL (8.8-10.2); CARBON DIOXIDE LEVEL 23 MEQ/L (21-32); CHLORIDE LEVEL 113 MEQ/L (98-107); CPK CREATINE PHOSPHOKINASE 88 U/L (39-308); CREATININE FOR GFR 1.28 MG/DL (0.70-1.30); GLUCOSE, FASTING 83 MG/DL (70-100); MB/CK RELATIVE INDEX 2.61 (< OR =4); NT-PRO BNP 3350 PG/ML (<450); SODIUM LEVEL 148 MEQ/L (136-145); TOTAL PROTEIN 5.2 GM/DL (6.4-8.2); TROPONIN I < 0.02 NG/ML (< 0.10)
[2018-05-26] MEDS ORDERED: ONDANSETRON 4 MG TAB (S0181) PO (03:15)
[2018-05-26] MEDS ORDERED: IPRATROPIUM 0.5MG/ALBUTEROL 2.5MG INH SOL UD 3ML (DUONEB)(J7620) NEB (03:30)
[2018-05-26] MEDS: cefTRIAXone SOD 1 GM in D5W MINI-BAG PLUS 50 ML IV (04:00)
[2018-05-26 06:18] LABS: LACTIC ACID SEPSIS PROTOCOL 1.2 MMOL/L (0.4-2.0)
[2018-05-26] MEDS: OMEGA-3 1000MG CAPSULE PO (08:05)
[2018-05-26] MEDS: FUROSEMIDE 40 MG TAB PO (08:06)
[2018-05-26] MEDS: GABAPENTIN 300 MG CAP PO ×3 (08:06→20:10)
[2018-05-26] MEDS: carBAMazepine 100 MG *1/2* TAB PO ×3 (08:06→20:10)
[2018-05-26] MEDS: ATORVASTATIN 20 MG TAB PO (08:06)
[2018-05-26] MEDS: OMEPRAZOLE 20 MG CAP PO (08:06)
[2018-05-26] MEDS: ASPIRIN 81 MG ENTERIC TAB PO (08:06)
[2018-05-26] MEDS: ENOXAPARIN 40 MG/0.4 ML SYRINGE (J1650) SC (08:07)
[2018-05-26] MEDS: ACETAMINOPHEN TAB 650MG DOSE (2X325MG) PO (08:08)
[2018-05-26] MEDS: guaiFENesin SYRUP 200 MG/10 ML UDC PO (08:29)
[2018-05-26] MEDS: TRIAMCINOLONE ACET 0.1% CREAM 80 GM TOP ×2 (10:34→20:11)
[2018-05-26 11:01] LABS: HEMATOCRIT 39.3 % (42.0-52.0); HEMOGLOBIN 12.4 g/dl (13.5-17.5); MEAN CORPUSCULAR HEMOGLOBIN 28.6 pg (27.0-33.0); MEAN CORPUSCULAR HGB CONC 31.6 g/dl (32.0-36.5); MEAN CORPUSCULAR VOLUME 90.8 fl (80.0-96.0); PLATELET COUNT, AUTOMATED 232 10^3/uL (150-450); RED BLOOD COUNT 4.33 10^6/uL (4.30-6.10); RED CELL DISTRIBUTION WIDTH 16.1 % (11.5-14.5); WHITE BLOOD COUNT 14.6 10^3/uL (4.0-10.0)
[2018-05-26 11:06] LABS: ANION GAP 4 MEQ/L (8-16); BLOOD UREA NITROGEN 25 MG/DL (7-18); C REACTIVE PROTEIN QUANTITATIV 2.51 MG/DL (0.00-0.30); CALCIUM LEVEL 8.4 MG/DL (8.8-10.2); CARBON DIOXIDE LEVEL 29 MEQ/L (21-32); CHLORIDE LEVEL 110 MEQ/L (98-107); CREATININE FOR GFR 1.21 MG/DL (0.70-1.30); GLOMERULAR FILTRATION RATE > 60.0 (>42); GLUCOSE, FASTING 92 MG/DL (70-100); POTASSIUM SERUM 4.4 MEQ/L (3.5-5.1); SODIUM LEVEL 143 MEQ/L (136-145)
[2018-05-26] MEDS: FUROSEMIDE 40 MG/4 ML VIAL (J1940) IV ×2 (12:54→18:35)
[2018-05-27] MEDS: FUROSEMIDE 40 MG/4 ML VIAL (J1940) IV ×2 (00:38→06:16)
[2018-05-27] MEDS: cefTRIAXone SOD 1 GM in D5W MINI-BAG PLUS 50 ML IV (04:04)
[2018-05-27] MEDS: ACETAMINOPHEN TAB 650MG DOSE (2X325MG) PO ×2 (06:17→20:55)
[2018-05-27] MEDS: guaiFENesin SYRUP 200 MG/10 ML UDC PO (06:35)
[2018-05-27 06:55] LABS: BASO % 0.1 % (0.0-1.0); EOS # 0.4 10^3/uL (0.0-0.50); EOS % 2.8 % (0.0-3.0); HEMATOCRIT 39.1 % (42.0-52.0); HEMOGLOBIN 12.7 g/dl (13.5-17.5); IMMATURE GRANULOCYTE % 0.8 % (0-3.0); LYMPH # 0.4 10^3/uL (1.5-4.5); LYMPH % 2.6 % (24.0-44.0); MEAN CORPUSCULAR HEMOGLOBIN 28.2 pg (27.0-33.0); MEAN CORPUSCULAR HGB CONC 32.5 g/dl (32.0-36.5); MEAN CORPUSCULAR VOLUME 86.7 fl (80.0-96.0); MONO # 0.6 10^3/uL (0.0-0.8); MONO % 3.6 % (0.0-5.0); NEUTROPHILS # 13.9 10^3/uL (1.8-7.7); NEUTROPHILS % 90.1 % (36.0-66.0); PLATELET COUNT, AUTOMATED 229 10^3/uL (150-450); RED BLOOD COUNT 4.51 10^6/uL (4.30-6.10); RED CELL DISTRIBUTION WIDTH 15.9 % (11.5-14.5); WHITE BLOOD COUNT 15.4 10^3/uL (4.0-10.0)
[2018-05-27 07:37] LABS: ANION GAP 12 MEQ/L (8-16); BLOOD UREA NITROGEN 46 MG/DL (7-18); CARBON DIOXIDE LEVEL 21 MEQ/L (21-32); CHLORIDE LEVEL 109 MEQ/L (98-107); CREATININE FOR GFR 2.64 MG/DL (0.70-1.30); GLOMERULAR FILTRATION RATE 25.2 (>42); GLUCOSE, FASTING 172 MG/DL (70-100); POTASSIUM SERUM 4.4 MEQ/L (3.5-5.1); SODIUM LEVEL 142 MEQ/L (136-145)
[2018-05-27] MEDS: ATORVASTATIN 20 MG TAB PO (08:52)
[2018-05-27] MEDS: ENOXAPARIN 40 MG/0.4 ML SYRINGE (J1650) SC (08:52)
[2018-05-27] MEDS: TRIAMCINOLONE ACET 0.1% CREAM 80 GM TOP (08:53)
[2018-05-27] MEDS: carBAMazepine 100 MG *1/2* TAB PO (08:53)
[2018-05-27] MEDS: GABAPENTIN 300 MG CAP PO (08:53)
[2018-05-27] MEDS: OMEGA-3 1000MG CAPSULE PO (08:53)
[2018-05-27] MEDS: ASPIRIN 81 MG ENTERIC TAB PO (08:53)
[2018-05-27] MEDS: OMEPRAZOLE 20 MG CAP PO (08:53)
[2018-05-27] MEDS: predniSONE 20 MG TAB PO (12:26)
[2018-05-27] MEDS: NS 1,000 ML IV ×2 (14:31→17:53)
[2018-05-27 14:56] LABS: HEMATOCRIT 42.4 % (42.0-52.0); HEMOGLOBIN 13.5 g/dl (13.5-17.5); MEAN CORPUSCULAR HEMOGLOBIN 28.3 pg (27.0-33.0); MEAN CORPUSCULAR HGB CONC 31.8 g/dl (32.0-36.5); MEAN CORPUSCULAR VOLUME 88.9 fl (80.0-96.0); PLATELET COUNT, AUTOMATED 220 10^3/uL (150-450); RED BLOOD COUNT 4.77 10^6/uL (4.30-6.10); RED CELL DISTRIBUTION WIDTH 16.3 % (11.5-14.5)
[2018-05-27 15:19] LABS: ANION GAP 14 MEQ/L (8-16); BLOOD UREA NITROGEN 52 MG/DL (7-18); CALCIUM LEVEL 7.8 MG/DL (8.8-10.2); CARBON DIOXIDE LEVEL 20 MEQ/L (21-32); CHLORIDE LEVEL 108 MEQ/L (98-107); CREATININE FOR GFR 3.38 MG/DL (0.70-1.30); GLOMERULAR FILTRATION RATE 18.9 (>42); GLUCOSE, FASTING 136 MG/DL (70-100); POTASSIUM SERUM 4.3 MEQ/L (3.5-5.1); SODIUM LEVEL 142 MEQ/L (136-145)
[2018-05-27 15:27] LABS: ABG HCO3 17.7 MEQ/L (22.0-26.0); ABG O2 SATURATION 92.8 % (95.0-99.0); ABG PARTIAL PRESSURE CO2 29.7 mmHg (35.0-45.0); ABG PARTIAL PRESSURE O2 65.9 mmHg (75.0-100.0); ABG STANDARD HCO3 19.5 MEQ/L (22.0-26.0); ABG TOTAL CO2 18.6 MEQ/L (23.0-31.0); ABG pH (ARTERIAL) 7.394 UNITS (7.350-7.450)
[2018-05-27 15:29] LABS: LACTIC ACID SEPSIS PROTOCOL 3.4 MMOL/L (0.4-2.0)
[2018-05-27] MEDS: SODIUM CHLORIDE 0.9% 1000ML IV (15:30)
[2018-05-27 15:49] LABS: ADD MANUAL DIFFER YES; DIFF SLIDE NUMBER 230; POSITIVE DIFF POS FLAG
[2018-05-27 15:51] LABS: BANDS 18 % (< 11); EOSINOPHILS 2 % (0-5); LYMPHOCYTES 1 % (16-52); METAMYELOCYTES 4 % (0-0); MONOCYTES 2 % (0-8); MYELOCYTES 1 % (0-0); NEUTROPHILS 72 % (35-75)
[2018-05-27 15:52] LABS: PLATELET ESTIMATE NORMAL (NORMAL)
[2018-05-27] MEDS ORDERED: VANCOMYCIN INTERMITTENT/PULSE DOSING BY CLINICAL PHARMACIST PER DOSING PROTOCOL XX (17:30)
[2018-05-27] MEDS: VANCOMYCIN HCL 1,000 MG, VIAL MATE ADAPTER 1 EACH in D5W/0.2% SODIUM CHLORIDE 250 ML IV (17:53)
[2018-05-27 18:53] LABS: AMORPHOUS SEDIMENT RFX MODERATE (NEGATIVE); KETONE, URINE AUTO RFX NEGATIVE (NEGATIVE); NITRITE, URINE AUTO RFX NEGATIVE (NEGATIVE); RBC, URINE AUTO RFX 4 /HPF (0-3); SPECIFIC GRAVITY UR AUTO RFX 1.016 (1.002-1.035); SQUAM EPITHELIAL CELL UR AURFX 0 /HPF (0-6); WBC, URINE AUTO RFX 8 /HPF (0-3)
[2018-05-27 18:57] LABS: LEUKOCYTE ESTERASE UR AUTO RFX TRACE (NEGATIVE)
[2018-05-27 18:58] LABS: BEDSIDE GLUCOSE 132 MG/DL (83-110)
[2018-05-27] MEDS ORDERED: MEROPENEM INJ 0.5 GM in APPROPRIATE DILUENT 1 EA IV (20:00)
[2018-05-27 20:27] LABS: LACTIC ACID SEPSIS PROTOCOL 2.6 MMOL/L (0.4-2.0)
[2018-05-27] MEDS ORDERED: METOPROLOL TART 25 MG TABLET As Ordered (20:30)
[2018-05-27] MEDS: METOPROLOL TART 50 MG TAB PO (20:31)
[2018-05-27 20:42] LABS: ABG BASE EXCESS -5.1 (-2.0-2.0); ABG DEVICE ROOM AIR; ABG HCO3 18.5 MEQ/L (22.0-26.0); ABG O2 SATURATION 93.9 % (95.0-99.0); ABG PARTIAL PRESSURE CO2 30.2 mmHg (35.0-45.0); ABG PARTIAL PRESSURE O2 66.7 mmHg (75.0-100.0); ABG PATIENT RESP RATE 22 /MIN; ABG STANDARD HCO3 20.2 MEQ/L (22.0-26.0); ABG TOTAL CO2 19.4 MEQ/L (23.0-31.0); ABG pH (ARTERIAL) 7.404 UNITS (7.350-7.450)
[2018-05-27] MEDS ORDERED: HEPARIN DRIP 25,000 UNITS in APPROPRIATE DILUENT 1 EA IV (20:44)
[2018-05-27] MEDS ORDERED: HEPARIN SOD (PORCINE) 5000 UNITS/ML VIAL IV ×2 (20:45)
[2018-05-27] MEDS ORDERED: levETIRAcetam 250MG TABLET (KEPPRA) PO (21:00)
[2018-05-27 21:06] LABS: CPK CREATINE PHOSPHOKINASE 6385 U/L (39-308); MB/CK RELATIVE INDEX 0.44 (< OR =4); TROPONIN I 0.08 NG/ML (< 0.10)
[2018-05-27 21:37] LABS: HEMOGLOBIN 12.6 g/dl (13.5-17.5); MEAN CORPUSCULAR HEMOGLOBIN 27.9 pg (27.0-33.0); MEAN CORPUSCULAR HGB CONC 31.5 g/dl (32.0-36.5); MEAN CORPUSCULAR VOLUME 88.5 fl (80.0-96.0); PLATELET COUNT, AUTOMATED 137 10^3/uL (150-450); RED BLOOD COUNT 4.52 10^6/uL (4.30-6.10); RED CELL DISTRIBUTION WIDTH 16.3 % (11.5-14.5); WHITE BLOOD COUNT 12.7 10^3/uL (4.0-10.0)
[2018-05-27] MEDS: NS 500 ML IV (21:45)
[2018-05-27 21:51] LABS: PARTIAL THROMBOPLASTIN TIME 22.2 SECONDS (25.4-37.6)
[2018-05-27] MEDS: PHENYLEPHRINE HCL INJ 50 MG in D5W 495 ML IV (22:00)
[2018-05-27] MEDS ORDERED: PHENYLEPHRINE INJ 10MG/ML VIAL (J2370) As Ordered (22:05)
[2018-05-27] MEDS: levETIRAcetam 250MG TABLET (KEPPRA) PO (23:45)
[2018-05-27] MEDS: MEROPENEM INJ 500 MG in APPROPRIATE DILUENT 1 EA IV (23:45)
[2018-05-28] MEDS: TRIAMCINOLONE ACET 0.1% CREAM 80 GM TOP ×3 (00:29→21:31)
[2018-05-28 02:43] LABS: BEDSIDE GLUCOSE 102 MG/DL (83-110)
[2018-05-28] MEDS: MEROPENEM INJ 500 MG in APPROPRIATE DILUENT 1 EA IV ×2 (04:57→16:45)
[2018-05-28 05:15] LABS: BASO % 0.1 % (0.0-1.0); EOS # 1.6 10^3/uL (0.0-0.50); EOS % 10.5 % (0.0-3.0); HEMATOCRIT 38.1 % (42.0-52.0); HEMOGLOBIN 12.2 g/dl (13.5-17.5); IMMATURE GRANULOCYTE % 1.6 % (0-3.0); LYMPH # 0.3 10^3/uL (1.5-4.5); MEAN CORPUSCULAR HEMOGLOBIN 28.2 pg (27.0-33.0); MONO # 0.6 10^3/uL (0.0-0.8); MONO % 3.7 % (0.0-5.0); NEUTROPHILS # 12.8 10^3/uL (1.8-7.7); NEUTROPHILS % 82.1 % (36.0-66.0); PLATELET COUNT, AUTOMATED 179 10^3/uL (150-450); RED BLOOD COUNT 4.33 10^6/uL (4.30-6.10); RED CELL DISTRIBUTION WIDTH 16.3 % (11.5-14.5); WHITE BLOOD COUNT 15.6 10^3/uL (4.0-10.0)
[2018-05-28 05:51] LABS: ALBUMIN 2.2 GM/DL (3.2-5.2); ALBUMIN/GLOBULIN RATIO 0.96 (1.00-1.93); ALKALINE PHOSPHATASE 124 U/L (45-117); ALT/SGPT 35 U/L (12-78); ANION GAP 12 MEQ/L (8-16); AST/SGOT 90 U/L (7-37); BILIRUBIN,TOTAL 0.3 MG/DL (0.2-1.0); BLOOD UREA NITROGEN 66 MG/DL (7-18); CALCIUM LEVEL 6.9 MG/DL (8.8-10.2); CARBON DIOXIDE LEVEL 21 MEQ/L (21-32); CHLORIDE LEVEL 111 MEQ/L (98-107); CREATININE FOR GFR 3.67 MG/DL (0.70-1.30); GLOMERULAR FILTRATION RATE 17.2 (>42); GLUCOSE, FASTING 126 MG/DL (70-100); POTASSIUM SERUM 4.4 MEQ/L (3.5-5.1); SODIUM LEVEL 144 MEQ/L (136-145); TOTAL PROTEIN 4.5 GM/DL (6.4-8.2); VANCOMYCIN RANDOM 9.1 UG/ML
[2018-05-28] MEDS: LOPERAMIDE 2 MG CAP PO ×3 (06:40→13:37)
[2018-05-28] MEDS: diphenhydrAMINE 25 MG CAP PO (06:40)
[2018-05-28] MEDS: ASPIRIN 81 MG ENTERIC TAB PO (08:52)
[2018-05-28] MEDS: ATORVASTATIN 20 MG TAB PO (08:52)
[2018-05-28] MEDS: OMEGA-3 1000MG CAPSULE PO (08:52)
[2018-05-28] MEDS: levETIRAcetam 250MG TABLET (KEPPRA) PO ×2 (08:52→21:30)
[2018-05-28] MEDS: OMEPRAZOLE 20 MG CAP PO (08:53)
[2018-05-28] MEDS: predniSONE 20 MG TAB PO (08:54)
[2018-05-28] MEDS: ACETAMINOPHEN TAB 650MG DOSE (2X325MG) PO (08:54)
[2018-05-28] MEDS ORDERED: ENOXAPARIN 30 MG/0.3 ML SYR (J1650) SC (09:00)
[2018-05-28] MEDS: NOREPINEPHRINE BITARTRATE 8 MG in D5W 492 ML IV (10:50)
[2018-05-28] MEDS: LACTOBACILLUS ACIDOPHILUS CAP (BACID) PO ×3 (10:54→21:30)
[2018-05-28] MEDS ORDERED: VANCOMYCIN HCL 1,000 MG in IV FLUID PLACE HOLDER 1 EA IV (13:00)
[2018-05-28] MEDS ORDERED: VANCOMYCIN INTERMITTENT/PULSE DOSING BY CLINICAL PHARMACIST PER DOSING PROTOCOL XX (13:15)
[2018-05-28] MEDS: VANCOMYCIN HCL 1,000 MG, VIAL MATE ADAPTER 1 EACH in D5W 250 ML IV (13:37)
[2018-05-28] MEDS: HEPARIN SOD (PORCINE) 5000 UNITS/ML VIAL SQ ×2 (13:37→21:31)
[2018-05-28] MEDS: DIGOXIN INJ 0.5 MG/2 ML AMP (J1160) IV ×3 (17:28→21:56)
[2018-05-28 17:38] LABS: BEDSIDE GLUCOSE 155 MG/DL (83-110)
[2018-05-28] MEDS: GABAPENTIN 300 MG CAP PO (21:30)
[2018-05-29 00:17] LABS: BEDSIDE GLUCOSE 150 MG/DL (83-110)
[2018-05-29] MEDS: ACETAMINOPHEN TAB 650MG DOSE (2X325MG) PO (05:21)
[2018-05-29] MEDS: MEROPENEM INJ 500 MG in APPROPRIATE DILUENT 1 EA IV (05:22)
[2018-05-29] MEDS: HEPARIN SOD (PORCINE) 5000 UNITS/ML VIAL SQ ×3 (05:22→21:36)
[2018-05-29 05:26] LABS: HEMATOCRIT 35.4 % (42.0-52.0); HEMOGLOBIN 11.6 g/dl (13.5-17.5); MEAN CORPUSCULAR HEMOGLOBIN 28.3 pg (27.0-33.0); MEAN CORPUSCULAR HGB CONC 32.8 g/dl (32.0-36.5); MEAN CORPUSCULAR VOLUME 86.3 fl (80.0-96.0); PLATELET COUNT, AUTOMATED 165 10^3/uL (150-450); RED CELL DISTRIBUTION WIDTH 16.3 % (11.5-14.5); WHITE BLOOD COUNT 13.5 10^3/uL (4.0-10.0)
[2018-05-29 05:39] LABS: ADD MANUAL DIFFER YES; DIFF SLIDE NUMBER 50; POSITIVE MORPH POS FLAG
[2018-05-29 06:01] LABS: ALBUMIN 1.8 GM/DL (3.2-5.2); ALBUMIN/GLOBULIN RATIO 0.82 (1.00-1.93); ALKALINE PHOSPHATASE 99 U/L (45-117); ALT/SGPT 33 U/L (12-78); ANION GAP 10 MEQ/L (8-16); AST/SGOT 33 U/L (7-37); BILIRUBIN,TOTAL 0.2 MG/DL (0.2-1.0); BLOOD UREA NITROGEN 70 MG/DL (7-18); CALCIUM LEVEL 6.9 MG/DL (8.8-10.2); CARBON DIOXIDE LEVEL 22 MEQ/L (21-32); CHLORIDE LEVEL 112 MEQ/L (98-107); CHOLESTEROL LEVEL 115 MG/DL (<200); CHOLESTEROL RISK RATIO 5.476 (<5); CREATININE FOR GFR 3.03 MG/DL (0.70-1.30); GLOMERULAR FILTRATION RATE 21.5 (>42); GLUCOSE, FASTING 113 MG/DL (70-100); HDL CHOLESTEROL 21 MG/DL (>40); LDL CHOLESTEROL 62 MG/DL (<100); MAGNESIUM LEVEL 2.1 MG/DL (1.8-2.4); NON-HDL-C 94 MG/DL; POTASSIUM SERUM 4.1 MEQ/L (3.5-5.1); SODIUM LEVEL 144 MEQ/L (136-145); TRIGLYCERIDES LEVEL 160 MG/DL (<150); VANCOMYCIN RANDOM 13.4 UG/ML
[2018-05-29 06:13] LABS: ANISOCYTOSIS 1+; ATYPICAL LYMPH 1 % (0-5); BANDS 1 % (< 11); EOSINOPHILS 9 % (0-5); LYMPHOCYTES 3 % (16-52); MONOCYTES 3 % (0-8); NEUTROPHILS 83 % (35-75); PLATELET ESTIMATE NORMAL (NORMAL)
[2018-05-29] MEDS: VANCOMYCIN HCL 1,000 MG, VIAL MATE ADAPTER 1 EACH in D5W 250 ML IV (06:39)
[2018-05-29] MEDS: predniSONE 20 MG TAB PO (08:43)
[2018-05-29] MEDS: ASPIRIN 81 MG ENTERIC TAB PO (08:43)
[2018-05-29] MEDS: LACTOBACILLUS ACIDOPHILUS CAP (BACID) PO ×3 (08:43→21:36)
[2018-05-29] MEDS: OMEPRAZOLE 20 MG CAP PO (08:43)
[2018-05-29] MEDS: levETIRAcetam 250MG TABLET (KEPPRA) PO ×2 (08:44→21:36)
[2018-05-29] MEDS: TRIAMCINOLONE ACET 0.1% CREAM 80 GM TOP ×2 (08:44→21:36)
[2018-05-29] MEDS: diphenhydrAMINE 50 MG CAP PO ×2 (11:55→22:32)
[2018-05-29] MEDS: LOPERAMIDE 2 MG CAP PO (11:55)
[2018-05-29] MEDS: CEFTAROLINE FOSAMIL 300 MG in D5W 50 ML IV ×2 (13:07→23:17)
[2018-05-29] MEDS ORDERED: SODIUM CHLORIDE 0.9% INJ 10 ML SYR IV (21:30)
[2018-05-29] MEDS: SODIUM CHLORIDE 0.9% INJ 10 ML SYR IV (21:37)
[2018-05-30] MEDS: ALPRAZolam 0.25 MG TAB PO (00:26)
[2018-05-30] MEDS: ACETAMINOPHEN TAB 650MG DOSE (2X325MG) PO ×3 (01:08→21:03)
[2018-05-30] MEDS: HEPARIN SOD (PORCINE) 5000 UNITS/ML VIAL SQ ×3 (04:48→21:02)
[2018-05-30] MEDS: SODIUM CHLORIDE 0.9% INJ 10 ML SYR IV ×3 (04:48→21:03)
[2018-05-30 05:43] LABS: ALBUMIN 2.1 GM/DL (3.2-5.2); ALBUMIN/GLOBULIN RATIO 0.81 (1.00-1.93); ALKALINE PHOSPHATASE 95 U/L (45-117); ALT/SGPT 39 U/L (12-78); ANION GAP 7 MEQ/L (8-16); AST/SGOT 27 U/L (7-37); BILIRUBIN,TOTAL 0.2 MG/DL (0.2-1.0); BLOOD UREA NITROGEN 66 MG/DL (7-18); CALCIUM LEVEL 7.8 MG/DL (8.8-10.2); CARBON DIOXIDE LEVEL 24 MEQ/L (21-32); CHLORIDE LEVEL 114 MEQ/L (98-107); CPK CREATINE PHOSPHOKINASE 1137 U/L (39-308); CREATININE FOR GFR 2.41 MG/DL (0.70-1.30); GLUCOSE, FASTING 111 MG/DL (70-100); MAGNESIUM LEVEL 2.1 MG/DL (1.8-2.4); POTASSIUM SERUM 3.9 MEQ/L (3.5-5.1); SODIUM LEVEL 145 MEQ/L (136-145); TOTAL PROTEIN 4.7 GM/DL (6.4-8.2)
[2018-05-30] MEDS: OMEPRAZOLE 20 MG CAP PO (09:09)
[2018-05-30] MEDS: predniSONE 20 MG TAB PO (09:09)
[2018-05-30] MEDS: levETIRAcetam 250MG TABLET (KEPPRA) PO ×2 (09:09→21:02)
[2018-05-30] MEDS: LACTOBACILLUS ACIDOPHILUS CAP (BACID) PO ×3 (09:09→21:02)
[2018-05-30] MEDS: ASPIRIN 81 MG ENTERIC TAB PO (09:10)
[2018-05-30] MEDS: TRIAMCINOLONE ACET 0.1% CREAM 80 GM TOP ×2 (09:10→21:03)
[2018-05-30 09:57] LABS: HEMATOCRIT 36.2 % (42.0-52.0); HEMOGLOBIN 11.8 g/dl (13.5-17.5); MEAN CORPUSCULAR HEMOGLOBIN 28.2 pg (27.0-33.0); MEAN CORPUSCULAR HGB CONC 32.6 g/dl (32.0-36.5); MEAN CORPUSCULAR VOLUME 86.4 fl (80.0-96.0); PLATELET COUNT, AUTOMATED 123 10^3/uL (150-450); RED BLOOD COUNT 4.19 10^6/uL (4.30-6.10); RED CELL DISTRIBUTION WIDTH 16.3 % (11.5-14.5); WHITE BLOOD COUNT 16.5 10^3/uL (4.0-10.0)
[2018-05-30 10:01] LABS: ADD MANUAL DIFFER YES; DIFF SLIDE NUMBER 149; POSITIVE DIFF POS FLAG; POSITIVE MORPH POS FLAG
[2018-05-30 10:11] LABS: AMORPHOUS SEDIMENT SMALL (NEGATIVE); APPEARANCE, URINE HAZY (CLEAR); BACTERIA, URINE AUTO NEGATIVE (NEGATIVE); BILIRUBIN, URINE AUTO NEGATIVE (NEGATIVE); BLOOD, URINE BLOOD 2+ (NEGATIVE); COLOR, URINE YELLOW (YELLOW); GLUCOSE, URINE (UA) AUTO NEGATIVE (NEGATIVE); KETONE, URINE AUTO NEGATIVE (NEGATIVE); LEUKOCYTE ESTERASE, URINE AUTO NEGATIVE (NEGATIVE); MUCUS, URINE SMALL (NEGATIVE); NITRITE, URINE AUTO NEGATIVE (NEGATIVE); PROTEIN, URINE AUTO 1+ mg/dL (NEGATIVE); RBC, URINE AUTO 15 /HPF (0-3); SPECIFIC GRAVITY URINE AUTO 1.014 (1.002-1.035); SQUAMOUS EPITHELIAL CELL UR AU 0 /HPF (0-6); UROBILINOGEN, URINE AUTO 0.2 mg/dL (0.0-2.0); WBC, URINE AUTO 1 /HPF (0-3)
[2018-05-30 10:32] LABS: ATYPICAL LYMPH 5 % (0-5); BANDS 1 % (< 11); EOSINOPHILS 6 % (0-5); LYMPHOCYTES 15 % (16-52); MONOCYTES 4 % (0-8); NEUTROPHILS 69 % (35-75); PLATELET ESTIMATE DECREASED (NORMAL); POIKILOCYTOSIS 1+
[2018-05-30 10:33] LABS: POLYCHROMASIA 1+
[2018-05-30 10:34] LABS: ANISOCYTOSIS 1+
[2018-05-30] MEDS: VANCOMYCIN HCL 1,000 MG, VIAL MATE ADAPTER 1 EACH in D5W 250 ML IV (11:25)
[2018-05-30] MEDS: diphenhydrAMINE 50 MG CAP PO ×2 (14:21→23:35)
[2018-05-31] MEDS: SODIUM CHLORIDE 0.9% INJ 10 ML SYR IV ×3 (05:23→21:15)
[2018-05-31] MEDS: HEPARIN SOD (PORCINE) 5000 UNITS/ML VIAL SQ ×3 (05:23→21:15)
[2018-05-31 05:40] LABS: MAGNESIUM LEVEL 2.2 MG/DL (1.8-2.4)
[2018-05-31 05:48] LABS: ALBUMIN 2.3 GM/DL (3.2-5.2); ALBUMIN/GLOBULIN RATIO 0.96 (1.00-1.93); ALKALINE PHOSPHATASE 99 U/L (45-117); ALT/SGPT 38 U/L (12-78); ANION GAP 8 MEQ/L (8-16); AST/SGOT 22 U/L (7-37); BILIRUBIN,TOTAL 0.3 MG/DL (0.2-1.0); BLOOD UREA NITROGEN 51 MG/DL (7-18); CALCIUM LEVEL 7.7 MG/DL (8.8-10.2); CARBON DIOXIDE LEVEL 26 MEQ/L (21-32); CHLORIDE LEVEL 116 MEQ/L (98-107); CREATININE FOR GFR 1.61 MG/DL (0.70-1.30); GLOMERULAR FILTRATION RATE 44.5 (>42); GLUCOSE, FASTING 83 MG/DL (70-100); POTASSIUM SERUM 3.9 MEQ/L (3.5-5.1); SODIUM LEVEL 150 MEQ/L (136-145); TOTAL PROTEIN 4.7 GM/DL (6.4-8.2)
[2018-05-31] MEDS: TRIAMCINOLONE ACET 0.1% CREAM 80 GM TOP ×2 (08:31→21:17)
[2018-05-31] MEDS: LACTOBACILLUS ACIDOPHILUS CAP (BACID) PO ×3 (08:32→21:16)
[2018-05-31] MEDS: levETIRAcetam 250MG TABLET (KEPPRA) PO ×2 (08:32→21:16)
[2018-05-31] MEDS: ASPIRIN 81 MG ENTERIC TAB PO (08:32)
[2018-05-31] MEDS: predniSONE 10 MG TAB PO (08:32)
[2018-05-31] MEDS: OMEPRAZOLE 20 MG CAP PO (08:32)
[2018-05-31 10:34] LABS: VANCOMYCIN LEVEL TROUGH 14.9 UG/ML (10.0-20.0)
[2018-05-31] MEDS: VANCOMYCIN HCL 1,000 MG, VIAL MATE ADAPTER 1 EACH in D5W 250 ML IV (10:40)
[2018-05-31] MEDS: guaiFENesin SYRUP 200 MG/10 ML UDC PO (21:13)
[2018-06-01] MEDS: guaiFENesin SYRUP 200 MG/10 ML UDC PO ×3 (03:14→21:23)
[2018-06-01] MEDS: HEPARIN SOD (PORCINE) 5000 UNITS/ML VIAL SQ (05:57)
[2018-06-01] MEDS: SODIUM CHLORIDE 0.9% INJ 10 ML SYR IV ×3 (05:58→21:24)
[2018-06-01 06:28] LABS: HEMATOCRIT 34.4 % (42.0-52.0); HEMOGLOBIN 11.2 g/dl (13.5-17.5); MEAN CORPUSCULAR HEMOGLOBIN 28.1 pg (27.0-33.0); MEAN CORPUSCULAR HGB CONC 32.6 g/dl (32.0-36.5); MEAN CORPUSCULAR VOLUME 86.4 fl (80.0-96.0); RED BLOOD COUNT 3.98 10^6/uL (4.30-6.10); RED CELL DISTRIBUTION WIDTH 16.2 % (11.5-14.5)
[2018-06-01 06:57] LABS: ALBUMIN 2.5 GM/DL (3.2-5.2); ALBUMIN/GLOBULIN RATIO 1.04 (1.00-1.93); ALKALINE PHOSPHATASE 106 U/L (45-117); ALT/SGPT 32 U/L (12-78); ANION GAP 6 MEQ/L (8-16); AST/SGOT 16 U/L (7-37); BILIRUBIN,TOTAL 0.4 MG/DL (0.2-1.0); BLOOD UREA NITROGEN 32 MG/DL (7-18); CALCIUM LEVEL 8.2 MG/DL (8.8-10.2); CARBON DIOXIDE LEVEL 29 MEQ/L (21-32); CHLORIDE LEVEL 109 MEQ/L (98-107); CREATININE FOR GFR 1.14 MG/DL (0.70-1.30); GLOMERULAR FILTRATION RATE > 60.0 (>42); GLUCOSE, FASTING 119 MG/DL (70-100); POTASSIUM SERUM 3.6 MEQ/L (3.5-5.1); SODIUM LEVEL 144 MEQ/L (136-145); TOTAL PROTEIN 4.9 GM/DL (6.4-8.2)
[2018-06-01 07:21] LABS: IMMATURE PLATELET FRACTION % 6.3 % (0.0-10.9); PLATELET COUNT, AUTOMATED 78 10^3/uL (150-450)
[2018-06-01 07:22] LABS: PLATELET F 70
[2018-06-01] MEDS: ASPIRIN 81 MG ENTERIC TAB PO (08:37)
[2018-06-01] MEDS: LACTOBACILLUS ACIDOPHILUS CAP (BACID) PO ×3 (08:37→21:22)
[2018-06-01] MEDS: predniSONE 20 MG TAB PO (08:37)
[2018-06-01] MEDS: OMEPRAZOLE 20 MG CAP PO (08:37)
[2018-06-01] MEDS: levETIRAcetam 250MG TABLET (KEPPRA) PO ×2 (08:38→21:23)
[2018-06-01] MEDS: TRIAMCINOLONE ACET 0.1% CREAM 80 GM TOP ×2 (08:38→21:25)
[2018-06-01] MEDS: POTASSIUM CHLORIDE 10 MEQ SR TABLET PO (11:25)
[2018-06-01] MEDS: VANCOMYCIN HCL 1,000 MG, VIAL MATE ADAPTER 1 EACH in D5W 250 ML IV (11:26)
[2018-06-01] MEDS: VITAMIN D 1,000 INTERNATIONAL UNITS TABLET PO (15:06)
[2018-06-01] MEDS: diphenhydrAMINE 50 MG CAP PO (15:09)
[2018-06-02] MEDS: VANCOMYCIN HCL 1,000 MG, VIAL MATE ADAPTER 1 EACH in D5W 250 ML IV (05:07)
[2018-06-02] MEDS: SODIUM CHLORIDE 0.9% INJ 10 ML SYR IV ×3 (05:08→21:30)
[2018-06-02 05:12] LABS: HEMATOCRIT 34.2 % (42.0-52.0); HEMOGLOBIN 11.1 g/dl (13.5-17.5); MEAN CORPUSCULAR HGB CONC 32.5 g/dl (32.0-36.5); MEAN CORPUSCULAR VOLUME 86.4 fl (80.0-96.0); RED BLOOD COUNT 3.96 10^6/uL (4.30-6.10); RED CELL DISTRIBUTION WIDTH 16.1 % (11.5-14.5)
[2018-06-02 05:18] LABS: ADD MANUAL DIFFER YES; DIFF SLIDE NUMBER 75; PLATELET COUNT, AUTOMATED 96 10^3/uL (150-450); POSITIVE DIFF POS FLAG; POSITIVE MORPH POS FLAG; WHITE BLOOD COUNT 25.4 10^3/uL (4.0-10.0)
[2018-06-02 05:30] LABS: ALBUMIN 2.3 GM/DL (3.2-5.2); ALBUMIN/GLOBULIN RATIO 0.92 (1.00-1.93); ALKALINE PHOSPHATASE 109 U/L (45-117); ALT/SGPT 28 U/L (12-78); ANION GAP 6 MEQ/L (8-16); AST/SGOT 15 U/L (7-37); BILIRUBIN,TOTAL 0.4 MG/DL (0.2-1.0); BLOOD UREA NITROGEN 24 MG/DL (7-18); CALCIUM LEVEL 7.7 MG/DL (8.8-10.2); CARBON DIOXIDE LEVEL 29 MEQ/L (21-32); CHLORIDE LEVEL 108 MEQ/L (98-107); CREATININE FOR GFR 1.01 MG/DL (0.70-1.30); GLOMERULAR FILTRATION RATE > 60.0 (>42); GLUCOSE, FASTING 132 MG/DL (70-100); MAGNESIUM LEVEL 1.8 MG/DL (1.8-2.4); POTASSIUM SERUM 3.6 MEQ/L (3.5-5.1); SODIUM LEVEL 143 MEQ/L (136-145); TOTAL PROTEIN 4.8 GM/DL (6.4-8.2)
[2018-06-02] MEDS: diphenhydrAMINE 50 MG CAP PO (05:48)
[2018-06-02 06:33] LABS: ATYPICAL LYMPH 4 % (0-5); EOSINOPHILS 21 % (0-5); LYMPHOCYTES 54 % (16-52); MONOCYTES 2 % (0-8); NEUTROPHILS 19 % (35-75)
[2018-06-02 06:35] LABS: SMUDGE CELLS 1+
[2018-06-02 06:36] LABS: ANISOCYTOSIS 1+; PLATELET ESTIMATE DECREASED (NORMAL)
[2018-06-02 07:47] LABS: C REACTIVE PROTEIN QUANTITATIV 1.69 MG/DL (0.00-0.30)
[2018-06-02] MEDS: LACTOBACILLUS ACIDOPHILUS CAP (BACID) PO ×3 (09:43→21:29)
[2018-06-02] MEDS: VITAMIN D 1,000 INTERNATIONAL UNITS TABLET PO (09:43)
[2018-06-02] MEDS: predniSONE 20 MG TAB PO (09:43)
[2018-06-02] MEDS: ASPIRIN 81 MG ENTERIC TAB PO (09:44)
[2018-06-02] MEDS: TRIAMCINOLONE ACET 0.1% CREAM 80 GM TOP ×2 (09:44→21:30)
[2018-06-02] MEDS: levETIRAcetam 250MG TABLET (KEPPRA) PO ×2 (09:44→21:29)
[2018-06-02] MEDS: OMEPRAZOLE 20 MG CAP PO (09:44)
[2018-06-02] MEDS: SPIRONOLACTONE 50 MG TAB PO (12:42)
[2018-06-03 05:47] LABS: ALBUMIN 2.3 GM/DL (3.2-5.2); ALBUMIN/GLOBULIN RATIO 1.21 (1.00-1.93); ALKALINE PHOSPHATASE 102 U/L (45-117); ALT/SGPT 22 U/L (12-78); ANION GAP 5 MEQ/L (8-16); AST/SGOT 12 U/L (7-37); BILIRUBIN,TOTAL 0.4 MG/DL (0.2-1.0); BLOOD UREA NITROGEN 18 MG/DL (7-18); CALCIUM LEVEL 7.6 MG/DL (8.8-10.2); CARBON DIOXIDE LEVEL 31 MEQ/L (21-32); CHLORIDE LEVEL 106 MEQ/L (98-107); CREATININE FOR GFR 0.83 MG/DL (0.70-1.30); GLOMERULAR FILTRATION RATE > 60.0 (>42); GLUCOSE, FASTING 96 MG/DL (70-100); MAGNESIUM LEVEL 1.9 MG/DL (1.8-2.4); POTASSIUM SERUM 3.8 MEQ/L (3.5-5.1); SODIUM LEVEL 142 MEQ/L (136-145); TOTAL PROTEIN 4.2 GM/DL (6.4-8.2)
[2018-06-03] MEDS: SODIUM CHLORIDE 0.9% INJ 10 ML SYR IV ×3 (06:00→21:59)
[2018-06-03] MEDS: predniSONE 20 MG TAB PO (09:35)
[2018-06-03] MEDS: levETIRAcetam 250MG TABLET (KEPPRA) PO ×2 (09:35→21:57)
[2018-06-03] MEDS: TRIAMCINOLONE ACET 0.1% CREAM 80 GM TOP ×2 (09:35→21:59)
[2018-06-03] MEDS: OMEPRAZOLE 20 MG CAP PO (09:35)
[2018-06-03] MEDS: ASPIRIN 81 MG ENTERIC TAB PO (09:35)
[2018-06-03] MEDS: VITAMIN D 1,000 INTERNATIONAL UNITS TABLET PO (09:35)
[2018-06-03] MEDS: LACTOBACILLUS ACIDOPHILUS CAP (BACID) PO ×3 (09:35→21:58)
[2018-06-03 11:43] LABS: HEMATOCRIT 33.8 % (42.0-52.0); HEMOGLOBIN 10.9 g/dl (13.5-17.5); MEAN CORPUSCULAR HEMOGLOBIN 28.3 pg (27.0-33.0); MEAN CORPUSCULAR HGB CONC 32.2 g/dl (32.0-36.5); MEAN CORPUSCULAR VOLUME 87.8 fl (80.0-96.0); PLATELET COUNT, AUTOMATED 165 10^3/uL (150-450); RED BLOOD COUNT 3.85 10^6/uL (4.30-6.10); RED CELL DISTRIBUTION WIDTH 16.7 % (11.5-14.5)
[2018-06-03 11:52] LABS: POSITIVE DIFF POS FLAG; POSITIVE MORPH POS FLAG
[2018-06-03 11:53] LABS: ADD MANUAL DIFFER YES; DIFF SLIDE NUMBER 215; WHITE BLOOD COUNT 24.5 10^3/uL (4.0-10.0)
[2018-06-03 12:20] LABS: ATYPICAL LYMPH 1 % (0-5); BASOPHILS 1 % (0-4); EOSINOPHILS 6 % (0-5); LYMPHOCYTES 57 % (16-52); MONOCYTES 2 % (0-8); NEUTROPHILS 33 % (35-75)
[2018-06-03 12:22] LABS: PLATELET ESTIMATE NORMAL (NORMAL)
[2018-06-04] MEDS: ACETAMINOPHEN TAB 650MG DOSE (2X325MG) PO ×2 (00:13→09:47)
[2018-06-04] MEDS: diphenhydrAMINE 50 MG CAP PO (00:13)
[2018-06-04] MEDS: SODIUM CHLORIDE 0.9% INJ 10 ML SYR IV ×3 (06:00→21:10)
[2018-06-04 06:03] LABS: HEMATOCRIT 33.5 % (42.0-52.0); HEMOGLOBIN 10.9 g/dl (13.5-17.5); MEAN CORPUSCULAR HEMOGLOBIN 28.5 pg (27.0-33.0); MEAN CORPUSCULAR HGB CONC 32.5 g/dl (32.0-36.5); MEAN CORPUSCULAR VOLUME 87.5 fl (80.0-96.0); PLATELET COUNT, AUTOMATED 221 10^3/uL (150-450); RED BLOOD COUNT 3.83 10^6/uL (4.30-6.10); RED CELL DISTRIBUTION WIDTH 16.4 % (11.5-14.5)
[2018-06-04 06:05] LABS: ADD MANUAL DIFFER YES; DIFF SLIDE NUMBER 48; POSITIVE DIFF POS FLAG; POSITIVE MORPH POS FLAG; WHITE BLOOD COUNT 27.7 10^3/uL (4.0-10.0)
[2018-06-04 06:26] LABS: ALBUMIN 2.7 GM/DL (3.2-5.2); ALBUMIN/GLOBULIN RATIO 1.23 (1.00-1.93); ALKALINE PHOSPHATASE 119 U/L (45-117); ALT/SGPT 24 U/L (12-78); ANION GAP 7 MEQ/L (8-16); AST/SGOT 13 U/L (7-37); BILIRUBIN,TOTAL 0.5 MG/DL (0.2-1.0); BLOOD UREA NITROGEN 16 MG/DL (7-18); CALCIUM LEVEL 7.7 MG/DL (8.8-10.2); CARBON DIOXIDE LEVEL 30 MEQ/L (21-32); CHLORIDE LEVEL 103 MEQ/L (98-107); CREATININE FOR GFR 0.82 MG/DL (0.70-1.30); GLOMERULAR FILTRATION RATE > 60.0 (>42); GLUCOSE, FASTING 90 MG/DL (70-100); POTASSIUM SERUM 3.7 MEQ/L (3.5-5.1); SODIUM LEVEL 140 MEQ/L (136-145); TOTAL PROTEIN 4.9 GM/DL (6.4-8.2)
[2018-06-04 06:36] LABS: EOSINOPHILS 10 % (0-5); LYMPHOCYTES 62 % (16-52); MONOCYTES 1 % (0-8); NEUTROPHILS 27 % (35-75)
[2018-06-04 06:37] LABS: PLATELET ESTIMATE NORMAL (NORMAL); SMUDGE CELLS 1+
[2018-06-04] MEDS: levETIRAcetam 250MG TABLET (KEPPRA) PO ×2 (09:46→21:10)
[2018-06-04] MEDS: predniSONE 20 MG TAB PO (09:46)
[2018-06-04] MEDS: LACTOBACILLUS ACIDOPHILUS CAP (BACID) PO ×3 (09:46→21:09)
[2018-06-04] MEDS: VITAMIN D 1,000 INTERNATIONAL UNITS TABLET PO (09:46)
[2018-06-04] MEDS: OMEPRAZOLE 20 MG CAP PO (09:46)
[2018-06-04] MEDS: ASPIRIN 81 MG ENTERIC TAB PO (09:47)
[2018-06-04] MEDS: TRIAMCINOLONE ACET 0.1% CREAM 80 GM TOP ×2 (09:47→21:10)
[2018-06-04] MEDS: FUROSEMIDE 40 MG TAB PO (13:44)
[2018-06-04] MEDS: LOPERAMIDE 2 MG CAP PO (15:25)
[2018-06-05] MEDS: SODIUM CHLORIDE 0.9% INJ 10 ML SYR IV ×3 (05:16→20:12)
[2018-06-05 05:30] LABS: HEMATOCRIT 31.2 % (42.0-52.0); HEMOGLOBIN 10.2 g/dl (13.5-17.5); MEAN CORPUSCULAR HEMOGLOBIN 28.3 pg (27.0-33.0); MEAN CORPUSCULAR HGB CONC 32.7 g/dl (32.0-36.5); MEAN CORPUSCULAR VOLUME 86.4 fl (80.0-96.0); PLATELET COUNT, AUTOMATED 244 10^3/uL (150-450); RED BLOOD COUNT 3.61 10^6/uL (4.30-6.10); RED CELL DISTRIBUTION WIDTH 16.5 % (11.5-14.5)
[2018-06-05 05:36] LABS: POSITIVE DIFF POS FLAG; WHITE BLOOD COUNT 25.8 10^3/uL (4.0-10.0)
[2018-06-05 05:37] LABS: ADD MANUAL DIFFER YES; DIFF SLIDE NUMBER 38; POSITIVE MORPH POS FLAG
[2018-06-05 05:51] LABS: ATYPICAL LYMPH 3 % (0-5); EOSINOPHILS 5 % (0-5); LYMPHOCYTES 56 % (16-52); MONOCYTES 2 % (0-8); NEUTROPHILS 34 % (35-75)
[2018-06-05 05:52] LABS: ANISOCYTOSIS 1+; OVALOCYTES 1+; PLATELET ESTIMATE NORMAL (NORMAL); SMUDGE CELLS 1+
[2018-06-05 05:54] LABS: ANION GAP 7 MEQ/L (8-16); BLOOD UREA NITROGEN 17 MG/DL (7-18); CALCIUM LEVEL 7.5 MG/DL (8.8-10.2); CARBON DIOXIDE LEVEL 31 MEQ/L (21-32); CHLORIDE LEVEL 105 MEQ/L (98-107); CREATININE FOR GFR 0.88 MG/DL (0.70-1.30); GLOMERULAR FILTRATION RATE > 60.0 (>42); GLUCOSE, FASTING 88 MG/DL (70-100); MAGNESIUM LEVEL 1.8 MG/DL (1.8-2.4); POTASSIUM SERUM 3.6 MEQ/L (3.5-5.1); SODIUM LEVEL 143 MEQ/L (136-145)
[2018-06-05] MEDS: FUROSEMIDE 40 MG TAB PO (10:02)
[2018-06-05] MEDS: ACETAMINOPHEN TAB 650MG DOSE (2X325MG) PO ×2 (10:03→20:11)
[2018-06-05] MEDS: LACTOBACILLUS ACIDOPHILUS CAP (BACID) PO ×3 (10:03→20:11)
[2018-06-05] MEDS: levETIRAcetam 250MG TABLET (KEPPRA) PO ×2 (10:03→20:11)
[2018-06-05] MEDS: ASPIRIN 81 MG ENTERIC TAB PO (10:03)
[2018-06-05] MEDS: VITAMIN D 1,000 INTERNATIONAL UNITS TABLET PO (10:03)
[2018-06-05] MEDS: OMEPRAZOLE 20 MG CAP PO (10:04)
[2018-06-05] MEDS: TRIAMCINOLONE ACET 0.1% CREAM 80 GM TOP ×2 (10:04→20:12)
[2018-06-05] MEDS: predniSONE 20 MG TAB PO (10:04)
[2018-06-05] MEDS: diphenhydrAMINE 50 MG CAP PO (20:11)
[2018-06-06] MEDS: SODIUM CHLORIDE 0.9% INJ 10 ML SYR IV (06:03)
[2018-06-06 06:16] LABS: HEMATOCRIT 32.5 % (42.0-52.0); HEMOGLOBIN 10.4 g/dl (13.5-17.5); MEAN CORPUSCULAR HEMOGLOBIN 27.5 pg (27.0-33.0); PLATELET COUNT, AUTOMATED 300 10^3/uL (150-450); RED BLOOD COUNT 3.78 10^6/uL (4.30-6.10); RED CELL DISTRIBUTION WIDTH 16.4 % (11.5-14.5)
[2018-06-06 06:43] LABS: ADD MANUAL DIFFER YES; DIFF SLIDE NUMBER 63; POSITIVE DIFF POS FLAG; POSITIVE MORPH POS FLAG
[2018-06-06 06:48] LABS: ANION GAP 5 MEQ/L (8-16); BLOOD UREA NITROGEN 19 MG/DL (7-18); CALCIUM LEVEL 7.5 MG/DL (8.8-10.2); CARBON DIOXIDE LEVEL 33 MEQ/L (21-32); CHLORIDE LEVEL 103 MEQ/L (98-107); CREATININE FOR GFR 0.92 MG/DL (0.70-1.30); GLOMERULAR FILTRATION RATE > 60.0 (>42); GLUCOSE, FASTING 85 MG/DL (70-100); MAGNESIUM LEVEL 1.9 MG/DL (1.8-2.4); POTASSIUM SERUM 3.5 MEQ/L (3.5-5.1); SODIUM LEVEL 141 MEQ/L (136-145)
[2018-06-06 07:34] LABS: ATYPICAL LYMPH 6 % (0-5); EOSINOPHILS 1 % (0-5); LYMPHOCYTES 45 % (16-52); MONOCYTES 11 % (0-8); MYELOCYTES 1 % (0-0); NEUTROPHILS 36 % (35-75); PLATELET ESTIMATE NORMAL (NORMAL)
[2018-06-06 07:35] LABS: ANISOCYTOSIS 1+
[2018-06-06] MEDS: levETIRAcetam 250MG TABLET (KEPPRA) PO (08:40)
[2018-06-06] MEDS: OMEPRAZOLE 20 MG CAP PO (08:40)
[2018-06-06] MEDS: ACETAMINOPHEN TAB 650MG DOSE (2X325MG) PO (08:40)
[2018-06-06] MEDS: LACTOBACILLUS ACIDOPHILUS CAP (BACID) PO (08:40)
[2018-06-06] MEDS: diphenhydrAMINE 50 MG CAP PO (08:40)
[2018-06-06] MEDS: TRIAMCINOLONE ACET 0.1% CREAM 80 GM TOP (08:41)
[2018-06-06] MEDS: ASPIRIN 81 MG ENTERIC TAB PO (08:41)
[2018-06-06] MEDS: VITAMIN D 1,000 INTERNATIONAL UNITS TABLET PO (08:41)
[2018-06-06] MEDS: predniSONE 20 MG TAB PO (08:41)
[2018-06-06] MEDS: FUROSEMIDE 40 MG TAB PO (08:41)
== END 2018-06-06 11:20 | disposition home or self-care (01) | DRG 602 ==
LOC: M ED 22:08 → M PCU 05-29 17:37 → M MS5PR 06-03 11:13 → M ED INP 05-26 03:18 → M ICU 05-27 20:48 → M MS5PR 05-26 04:41
PROC: 02HV33Z Insertion of Infusion Device into Superior Vena Cava, Percutaneous Approach (ICD-10-PCS; principal; 2018-05-27)
DX: L03.115 Cellulitis of right lower limb (principal); R65.21 Severe sepsis with septic shock; A41.9 Sepsis, unspecified organism; I50.33 Acute on chronic diastolic (congestive) heart failure; N17.9 Acute kidney failure, unspecified; I13.0 Hypertensive heart and chronic kidney disease with heart failure and stage 1 through stage 4 chronic kidney disease, or unspecified chronic kidney disease; C91.11 Chronic lymphocytic leukemia of B-cell type in remission; E87.0 Hyperosmolality and hypernatremia; Z66 Do not resuscitate; D72.1 Eosinophilia; I48.91 Unspecified atrial fibrillation; R41.82 Altered mental status, unspecified; T38.0X5A Adverse effect of glucocorticoids and synthetic analogues, initial encounter; G62.9 Polyneuropathy, unspecified; N18.3 Chronic kidney disease, stage 3 (moderate); E78.5 Hyperlipidemia, unspecified; I87.2 Venous insufficiency (chronic) (peripheral); R60.0 Localized edema; F03.90 Unspecified dementia, unspecified severity, without behavioral disturbance, psychotic disturbance, mood disturbance, and anxiety; K21.9 Gastro-esophageal reflux disease without esophagitis; G40.909 Epilepsy, unspecified, not intractable, without status epilepticus; Z92.21 Personal history of antineoplastic chemotherapy; Z86.73 Personal history of transient ischemic attack (TIA), and cerebral infarction without residual deficits; Z79.82 Long term (current) use of aspirin; Z79.899 Other long term (current) drug therapy; Z96.653 Presence of artificial knee joint, bilateral; Z87.891 Personal history of nicotine dependence; Z91.14 Patient's other noncompliance with medication regimen

== ENCOUNTER → 2018-05-25 | Outpatient (REF) | payer OTHER | LOC: M SFHCADAM 05-26 18:36 | DX: J02.9 Acute pharyngitis, unspecified (principal) ==

== ENCOUNTER 2018-06-18 23:33 | Emergency (ER) | payer OTHER ==
[2018-06-19 00:15] LABS: BEDSIDE GLUCOSE 98 MG/DL (83-110)
[2018-06-19] MEDS: levETIRAcetam 250MG TABLET (KEPPRA) PO (00:40)
== END 2018-06-19 01:30 | disposition home or self-care (01) ==
LOC: M ED 23:33
DX: Z04.1 Encounter for examination and observation following transport accident (principal); I10 Essential (primary) hypertension; G40.909 Epilepsy, unspecified, not intractable, without status epilepticus; N28.9 Disorder of kidney and ureter, unspecified; C91.11 Chronic lymphocytic leukemia of B-cell type in remission; Z86.73 Personal history of transient ischemic attack (TIA), and cerebral infarction without residual deficits; Z79.82 Long term (current) use of aspirin; Z79.899 Other long term (current) drug therapy
CPT/HCPCS: 99284

== ENCOUNTER → 2018-06-22 | Outpatient (REF) | payer OTHER ==
[2018-06-22 19:17] LABS: HEMATOCRIT 40.3 % (42.0-52.0); HEMOGLOBIN 12.6 g/dl (13.5-17.5); MEAN CORPUSCULAR HEMOGLOBIN 28.1 pg (27.0-33.0); MEAN CORPUSCULAR HGB CONC 31.3 g/dl (32.0-36.5); MEAN CORPUSCULAR VOLUME 89.8 fl (80.0-96.0); PLATELET COUNT, AUTOMATED 197 10^3/uL (150-450); RED BLOOD COUNT 4.49 10^6/uL (4.30-6.10); RED CELL DISTRIBUTION WIDTH 15.7 % (11.5-14.5)
[2018-06-22 19:21] LABS: ADD MANUAL DIFFER YES; DIFF SLIDE NUMBER 244; POSITIVE DIFF POS FLAG; POSITIVE MORPH POS FLAG; WHITE BLOOD COUNT 16.5 10^3/uL (4.0-10.0)
[2018-06-22 19:24] LABS: ALBUMIN 3.4 GM/DL (3.2-5.2); ALBUMIN/GLOBULIN RATIO 1.17 (1.00-1.93); ALKALINE PHOSPHATASE 162 U/L (45-117); ALT/SGPT 24 U/L (12-78); ANION GAP 10 MEQ/L (8-16); AST/SGOT 15 U/L (7-37); BILIRUBIN,TOTAL 0.3 MG/DL (0.2-1.0); BLOOD UREA NITROGEN 17 MG/DL (7-18); CALCIUM LEVEL 7.8 MG/DL (8.8-10.2); CARBON DIOXIDE LEVEL 35 MEQ/L (21-32); CHLORIDE LEVEL 96 MEQ/L (98-107); CREATININE FOR GFR 1.47 MG/DL (0.70-1.30); GLOMERULAR FILTRATION RATE 49.5 (>42); GLUCOSE, FASTING 162 MG/DL (70-100); POTASSIUM SERUM 3.1 MEQ/L (3.5-5.1); SODIUM LEVEL 141 MEQ/L (136-145); TOTAL PROTEIN 6.3 GM/DL (6.4-8.2)
[2018-06-22 19:45] LABS: ATYPICAL LYMPH 4 % (0-5); LYMPHOCYTES 40 % (16-52); MONOCYTES 2 % (0-8); NEUTROPHILS 54 % (35-75)
[2018-06-22 19:46] LABS: PLATELET ESTIMATE NORMAL (NORMAL)
== END ==
LOC: M SFHCADAM 14:14
DX: I10 Essential (primary) hypertension (principal); Z86.2 Personal history of diseases of the blood and blood-forming organs and certain disorders involving the immune mechanism
CPT/HCPCS: 80053

== ENCOUNTER 2018-07-09 06:52 | Emergency (ER) | payer OTHER | END 2018-07-09 07:49 | disposition home or self-care (01) | LOC: M ED 06:52 | DX: L20.9 Atopic dermatitis, unspecified (principal); I10 Essential (primary) hypertension; Z86.73 Personal history of transient ischemic attack (TIA), and cerebral infarction without residual deficits; N40.0 Benign prostatic hyperplasia without lower urinary tract symptoms; M54.9 Dorsalgia, unspecified; Z85.6 Personal history of leukemia; Z96.653 Presence of artificial knee joint, bilateral; Z79.82 Long term (current) use of aspirin; Z79.899 Other long term (current) drug therapy | CPT/HCPCS: 99282 ==

== ENCOUNTER → 2018-07-13 | Outpatient (REF) | payer OTHER ==
[~2018-07-13] MED LIST changes: +ASPI1TAB PO; +ASPI81TA85 PO; +BACT2CRE TOP; +CEFAD50CA; +CEFAD50CA PO; +CEFD1CAP8 PO; +CLAR1TAB2 PO; +DOXY-350 PO; +DOXY100C37 PO; +DOXY100T; +DOXY100T PO; +DOXY100T16 PO; +EUCE1CRE2 TOP; +FISH7.5C PO; +FURO20TA2 PO; +FURO40TA2 PO; +GABA-843; +GABA-843 PO; +KEPP250T5 PO; +LASI40TA PO; +MOME0.1C3 EXT; +MOME0.1O; +MUPI2OI TOP; +NYSTOI TOP; +PRED20TA PO; +TRIA1CR80 TOP; +ULTR50TA8 PO; +VITA2000 PO; +VITA200016 PO; +ZYLO300T6 PO
[2018-07-13 19:31] LABS: BLOOD UREA NITROGEN 12 MG/DL (7-18); CALCIUM LEVEL 8.6 MG/DL (8.8-10.2); CARBON DIOXIDE LEVEL 31 MEQ/L (21-32); CHLORIDE LEVEL 101 MEQ/L (98-107); CREATININE FOR GFR 1.15 MG/DL (0.70-1.30); GLOMERULAR FILTRATION RATE > 60.0 (>42); GLUCOSE, FASTING 116 MG/DL (70-100); POTASSIUM SERUM 3.9 MEQ/L (3.5-5.1); SODIUM LEVEL 140 MEQ/L (136-145)
== END ==
LOC: M SFHCADAM 13:11
PROVIDERS: ATTEND Family Medicine
DX: R60.9 Edema, unspecified (principal)
CPT/HCPCS: 80048; G0463

== ENCOUNTER → 2018-07-16 | Outpatient (REF) | payer OTHER ==
[2018-07-16 17:47] LABS: HEMATOCRIT 39.3 % (42.0-52.0); HEMOGLOBIN 12.2 g/dl (13.5-17.5); MEAN CORPUSCULAR HEMOGLOBIN 27.4 pg (27.0-33.0); MEAN CORPUSCULAR VOLUME 88.3 fl (80.0-96.0); PLATELET COUNT, AUTOMATED 319 10^3/uL (150-450); RED BLOOD COUNT 4.45 10^6/uL (4.30-6.10); RED CELL DISTRIBUTION WIDTH 15.2 % (11.5-14.5)
[2018-07-16 17:51] LABS: ADD MANUAL DIFFER YES; DIFF SLIDE NUMBER 88; POSITIVE DIFF POS FLAG; POSITIVE MORPH POS FLAG; WHITE BLOOD COUNT 16.7 10^3/uL (4.0-10.0)
[2018-07-16 17:53] LABS: ALBUMIN 3.2 GM/DL (3.2-5.2); ALKALINE PHOSPHATASE 164 U/L (45-117); ALT/SGPT 19 U/L (12-78); ANION GAP 8 MEQ/L (8-16); AST/SGOT 17 U/L (7-37); BILIRUBIN,TOTAL 0.4 MG/DL (0.2-1.0); BLOOD UREA NITROGEN 13 MG/DL (7-18); CALCIUM LEVEL 8.5 MG/DL (8.8-10.2); CARBON DIOXIDE LEVEL 32 MEQ/L (21-32); CHLORIDE LEVEL 102 MEQ/L (98-107); CREATININE FOR GFR 1.13 MG/DL (0.70-1.30); GLOMERULAR FILTRATION RATE > 60.0 (>42); GLUCOSE, FASTING 90 MG/DL (70-100); NT-PRO BNP 706 PG/ML (<450); POTASSIUM SERUM 3.7 MEQ/L (3.5-5.1); SODIUM LEVEL 142 MEQ/L (136-145); TOTAL PROTEIN 6.1 GM/DL (6.4-8.2)
[2018-07-16 18:12] LABS: ATYPICAL LYMPH 1 % (0-5); EOSINOPHILS 6 % (0-5); LYMPHOCYTES 53 % (16-52); MONOCYTES 3 % (0-8); NEUTROPHILS 37 % (35-75); PLATELET ESTIMATE NORMAL (NORMAL)
== END ==
LOC: M SFHCADAM 08:54
DX: R60.9 Edema, unspecified (principal); I10 Essential (primary) hypertension; D72.829 Elevated white blood cell count, unspecified
CPT/HCPCS: 80053

== ENCOUNTER → 2018-07-16 | Outpatient (CLI) | payer OTHER | LOC: M ADAMS 16:03 | PROVIDERS: ATTEND Family Medicine | DX: R60.9 Edema, unspecified (principal); I10 Essential (primary) hypertension; D72.829 Elevated white blood cell count, unspecified ==

== ENCOUNTER → 2018-07-20 | Outpatient (CLI) | payer OTHER ==
[~2018-07-20] MED LIST changes: -LASI40TA PO; +LASI40TA9 PO
--- NOTE | 2018-07-20 19:22 | REP ---
Clinical: Pain. Technique: AP, lateral, flexion/extension, bilateral oblique and open mouth views of the cervical spine. Findings: Evidence for prior anterior fixation at C3 through C7. Subtle widening to the disc space at this C2-3 level cannot be excluded. No obvious acute fracture. Spinous processes are intact. C1-C2 demonstrate degenerative changes including endplate sclerosis. Odontoid process appears intact. Impression: Advanced multilevel degenerative changes with anterior fixation. Subtle widening at the C2-3 level cannot be excluded. Electronically Signed by Isra Lerma MD 07/20/2018 07:14 P
--- NOTE | 2018-07-20 19:34 | REP ---
Clinical: Acute lower back pain. Technique: AP, lateral, bilateral oblique and coned-down views of the lumbosacral spine. Findings: Moderate to advanced multilevel degenerative changes includes osteophytosis, endplate sclerosis, hypertrophic facet changes. No acute fracture / compression injury or subluxation. Chronic L5 spondylolysis without significant spondylolisthesis cannot be excluded Impression: Moderate to advanced multilevel degenerative changes. Possible chronic L5 spondylolysis Electronically Signed by Isra Lerma MD 07/20/2018 07:26 P
== END ==
LOC: M ADAMS 16:36
PROVIDERS: ATTEND Family Medicine
DX: M50.31 Other cervical disc degeneration, high cervical region (principal); M51.36 Other intervertebral disc degeneration, lumbar region; M54.5 Low back pain
CPT/HCPCS: 11042; 11100; 72050; 72110; G0463

== ENCOUNTER → 2018-07-20 | Outpatient (REF) | payer OTHER | LOC: M LAB REF 17:21 | DX: D23.72 Other benign neoplasm of skin of left lower limb, including hip (principal) | CPT/HCPCS: 88305 ==

== ENCOUNTER 2018-08-14 00:12 | Inpatient (IN) | payer MEDICARE, OTHER ==
[~2018-08-14] VITALS: Ht 165.1 cm; Wt 81.3 kg
[2018-08-14 01:33] LABS: BASO % 0.3 % (0.0-1.0); EOS # 0.1 10^3/uL (0.0-0.50); EOS % 1.3 % (0.0-3.0); HEMOGLOBIN 13.4 g/dl (13.5-17.5); LYMPH % 30.4 % (24.0-44.0); MEAN CORPUSCULAR HEMOGLOBIN 26.9 pg (27.0-33.0); MEAN CORPUSCULAR HGB CONC 31.9 g/dl (32.0-36.5); MEAN CORPUSCULAR VOLUME 84.2 fl (80.0-96.0); MONO # 0.6 10^3/uL (0.0-0.8); MONO % 9.3 % (0.0-5.0); NEUTROPHILS # 3.9 10^3/uL (1.8-7.7); NEUTROPHILS % 58.4 % (36.0-66.0); PLATELET COUNT, AUTOMATED 181 10^3/uL (150-450); RED BLOOD COUNT 4.99 10^6/uL (4.30-6.10); WHITE BLOOD COUNT 6.7 10^3/uL (4.0-10.0)
[2018-08-14 01:57] LABS: ALBUMIN 3.3 GM/DL (3.2-5.2); BILIRUBIN,DIRECT 0.2 MG/DL (0.0-0.2); BILIRUBIN,TOTAL 0.6 MG/DL (0.2-1.0); CALCIUM LEVEL 8.3 MG/DL (8.8-10.2); CREATININE FOR GFR 1.57 MG/DL (0.70-1.30); GLOMERULAR FILTRATION RATE 45.8 (>42); POTASSIUM SERUM 3.1 MEQ/L (3.5-5.1)
[2018-08-14 02:52] LABS: ERYTHROCYTE SEDIMENTATION RATE 35 mm/hr (0-20)
[2018-08-14 02:53] LABS: C REACTIVE PROTEIN QUANTITATIV 9.92 MG/DL (0.00-0.30)
[2018-08-14] MEDS ORDERED: ACETAMINOPHEN TAB 650MG DOSE (2X325MG) PO ONE (04:00)
[2018-08-14] MEDS ORDERED: NS 1,000 ML IV ONE (04:00)
[2018-08-14 04:02] LABS: APPEARANCE, URINE CLOUDY (CLEAR); BACTERIA, URINE AUTO 1+ (NEGATIVE); BILIRUBIN, URINE AUTO NEGATIVE (NEGATIVE); BLOOD, URINE BLOOD 1+ (NEGATIVE); COLOR, URINE YELLOW (YELLOW); GLUCOSE, URINE (UA) AUTO NEGATIVE (NEGATIVE); KETONE, URINE AUTO TRACE mg/dL (NEGATIVE); LEUKOCYTE ESTERASE, URINE AUTO NEGATIVE (NEGATIVE); MUCUS, URINE SMALL (NEGATIVE); NITRITE, URINE AUTO NEGATIVE (NEGATIVE); PROTEIN, URINE AUTO 2+ mg/dL (NEGATIVE); RBC, URINE AUTO 4 /HPF (0-3); SPECIFIC GRAVITY URINE AUTO 1.018 (1.002-1.035); SQUAMOUS EPITHELIAL CELL UR AU 1 /HPF (0-6); TRANSITIONAL EPITHELIAL AUTO 1 /HPF; UROBILINOGEN, URINE AUTO 0.2 mg/dL (0.0-2.0); WBC, URINE AUTO 1 /HPF (0-3)
--- NOTE | 2018-08-14 04:07 | REPVR ---
EXAM: CT Head Without Contrast EXAM DATE/TIME: 08/14/2018 2:56 AM CLINICAL HISTORY: 77 years old, male; Injury or trauma; Fall; Initial encounter; Blunt trauma (contusions or hematomas); Consciousness not specified; Additional info: Fall, whole spine pain, HX of fusions TECHNIQUE: Axial computed tomography images of the head/brain without contrast. All CT scans at this facility use at least one of these dose optimization techniques: automated exposure control; mA and/or kV adjustment per patient size (includes targeted exams where dose is matched to clinical indication); or iterative reconstruction. COMPARISON: CT Head without contrast 05/27/2018 9:26 AM FINDINGS: Brain: There is hypodensity within the periventricular and deep white matter of both cerebral hemispheres, consistent with small vessel ischemic change. There is no evidence of acute intracranial hemorrhage or mass effect. The ventricles and extra-axial CSF spaces are stable in size with moderate generalized atrophy. Ventricles: There is an anatomic variant cavum septum pellucidum. The ventricles are midline without shift. Bones/joints: Normal. No acute fracture. Sinuses: No significant sinus mucosal thickening or air-fluid levels. Mastoid air cells: Normal as visualized. No mastoid effusion. Soft tissues: Left periorbital soft tissue swelling. Vasculature: Carotid and vertebral artery calcification. IMPRESSION: Small vessel ischemic change and moderate generalized atrophy. There is no evidence of intracranial hemorrhage or acute intracranial abnormality. Electronically signed by: Isra Alston On 08/14/2018 04:07:11 AM
[2018-08-14 04:31] LABS: INFLUENZA A AMPLIFICATION NEGATIVE (NEGATIVE); INFLUENZA B AMPLIFICATION NEGATIVE (NEGATIVE)
--- NOTE | 2018-08-14 04:34 | REPVR ---
EXAM: CT Cervical Spine Without Contrast EXAM DATE/TIME: 08/14/2018 2:56 AM CLINICAL HISTORY: 77 years old, male; Injury or trauma; Fall; Initial encounter; Blunt trauma; Additional info: Fall, whole spine pain, HX of fusions TECHNIQUE: Axial computed tomography images of the cervical spine without intravenous contrast. All CT scans at this facility use at least one of these dose optimization techniques: automated exposure control; mA and/or kV adjustment per patient size (includes targeted exams where dose is matched to clinical indication); or iterative reconstruction. Coronal and sagittal reformatted images were created and reviewed. COMPARISON: DX SPINE CERVICAL COMPL 07/20/2018 4:29 PM FINDINGS: Vertebrae: There is preservation of the normal cervical lordosis. Stable mild anterolisthesis C7-T1. This appears degenerative related to facet arthrosis. Postoperative change from multilevel anterior fusion C3-C7 with anterior plate and screws as well as interbody fusion hardware. There is streak artifact associated with the metallic hardware. There is spondylosis with uncovertebral joint hypertrophy at C2-C3. Mild disc space narrowing and endplate osteophyte formation at C7-T1. Extensive multilevel facet arthrosis. Degenerative change involving the atlantoaxial joint. No definite acute fracture. Discs/Spinal canal/Neural foramina: No significant canal stenosis. Soft tissues: The paraspinal soft tissues are unremarkable. No significant prevertebral soft tissue swelling. Lungs: The lung apices are clear. Vasculature: Carotid and vertebral artery atherosclerosis. IMPRESSION: 1. Extensive postoperative change from anterior fusion C3-C7. 2. Degenerative changes, as described. No definite acute fracture. Electronically signed by: Isra Alston On 08/14/2018 04:34:25 AM
--- NOTE | 2018-08-14 04:55 | REPVR ---
EXAM: CT Lumbar Spine Without Contrast EXAM DATE/TIME: 08/14/2018 2:56 AM CLINICAL HISTORY: 77 years old, male; Injury or trauma; Fall; Initial encounter; Blunt trauma (contusions or hematomas); Additional info: Fall, whole spine pain, HX of fusions TECHNIQUE: Axial computed tomography images of the lumbar spine without intravenous contrast. All CT scans at this facility use at least one of these dose optimization techniques: automated exposure control; mA and/or kV adjustment per patient size (includes targeted exams where dose is matched to clinical indication); or iterative reconstruction. Coronal and sagittal reformatted images were created and reviewed. COMPARISON: DX SPINE LS COMPLETE 07/20/2018 4:29 PM FINDINGS: Vertebrae: There is normal lumbar lordosis. No spondylolisthesis. L5 pars defects (spondylolysis) appear unchanged. There is mild disc space narrowing at L4-L5 with a vacuum cleft. Multilevel endplate osteophyte formation and small Schmorl nodes. Multilevel facet arthrosis. No acute fracture. Degenerative change involving the sacroiliac joints. Discs/Spinal canal/Neural foramina: At L3-L4, there is a broad-based posterior disc bulge. No significant canal stenosis. At L4-L5, there is a broad-based posterior disc osteophyte complex which is eccentric posterolaterally towards the left. No significant canal stenosis. There is narrowing of the left neural foramen. At L5-S1, there is a broad-based posterior disc osteophyte complex which is eccentric posterolaterally toward the left. No significant canal stenosis. There is narrowing of the left neural foramen. Soft tissues: The paraspinal soft tissues are unremarkable. Vasculature: There is diffuse atherosclerosis as well as ectasia of the abdominal aorta. No aneurysm. Kidneys and ureters: Bilateral renal vascular calcification as well as a 2.5 cm parapelvic cyst within the left kidney. IMPRESSION: 1. Normal lumbar alignment. Stable L5 pars defects (spondylolysis). No significant spondylolisthesis. 2. Multilevel degenerative disc disease and facet arthrosis. 3. No acute fracture. Electronically signed by: Isra Alston On 08/14/2018 04:55:27 AM
--- NOTE | 2018-08-14 05:17 | REPVR ---
EXAM: CT Thoracic Spine Without Contrast EXAM DATE/TIME: 08/14/2018 2:56 AM CLINICAL HISTORY: 77 years old, male; Injury or trauma; Fall; Initial encounter; Blunt trauma (contusions or hematomas); Additional info: Fall, whole spine pain, HX of fusions TECHNIQUE: Axial computed tomography images of the thoracic spine without intravenous contrast. All CT scans at this facility use at least one of these dose optimization techniques: automated exposure control; mA and/or kV adjustment per patient size (includes targeted exams where dose is matched to clinical indication); or iterative reconstruction. Coronal and sagittal reformatted images were created and reviewed. COMPARISON: DX SPINE LS COMPLETE 07/20/2018 4:29 PM FINDINGS: Vertebrae: There is a mild thoracic scoliosis convex right which may be positional, intrinsic or secondary to muscle spasm. There is normal thoracic kyphosis. No spondylolisthesis. There is extensive postoperative change within the lower cervical spine from anterior fusion. Multilevel degenerative change within the thoracic spine with degenerative endplate changes/Schmorl's nodes as well as marginal osteophyte formation. There is a mild superior endplate deformity involving the T2 vertebral body with slight loss of anterior vertebral body height. This is of indeterminate age. Facet arthrosis. Discs/Spinal canal/Neural foramina: No significant canal stenosis. Soft tissues: The paraspinal soft tissues are unremarkable. Vasculature: Atherosclerosis of the thoracic and visualized abdominal aorta with bilateral renal vascular calcification. Atherosclerosis of the great vessels. Coronary artery calcification. Lungs: The visualized portions of the lungs demonstrate respiratory motion and mild dependent atelectasis. No consolidation. IMPRESSION: 1. Mild thoracic dextroscoliosis. 2. Multilevel degenerative change. Mild superior endplate deformity involving the T2 vertebral body with slight loss of anterior vertebral body height. This is consistent with a mild compression deformity of indeterminate age. 3. Extensive postoperative change within the lower cervical spine from prior anterior fusion. Electronically signed by: Isra Alston On 08/14/2018 05:16:21 AM
[2018-08-14 06:20] LABS: CSF TUBE# GLU TUBE 3; CSF TUBE# TP TUBE 3; GLUCOSE CSF 54 MG/DL (40-75); TOTAL PROTEIN,CSF 94 MG/DL (15-45)
[2018-08-14 06:29] LABS: APPEARANCE, CSF CLEAR (CLEAR); COLOR, CSF COLORLESS (COLORLESS); CSF TUBE# CELL CNT TUBE 1
[2018-08-14 06:30] LABS: APPEARANCE, CSF CLEAR (CLEAR); COLOR, CSF COLORLESS (COLORLESS); CSF TUBE# CELL CNT TUBE 4
[2018-08-14] MEDS ORDERED: ACYCLOVIR 1,000 MG in D5W 250 ML IV ONE (07:00)
[2018-08-14] MEDS ORDERED: [UNRECOGNIZED DRUG - OTHER] TOP (08:07)
[2018-08-14] MEDS ORDERED: KEPP1TAB PO (08:08)
[2018-08-14] MEDS ORDERED: ATOR80TA59 PO (08:13)
[2018-08-14] MEDS ORDERED: OMEG1CAP16 PO (08:13)
[2018-08-14] MEDS ORDERED: ACE65ERTAB PO (08:13)
[2018-08-14] MEDS ORDERED: [UNRECOGNIZED DRUG - CODE] TOP (08:13)
[2018-08-14] MEDS ORDERED: MONT10TA2 PO (08:13)
[2018-08-14] MEDS ORDERED: CLOP75TA2 PO (08:13)
[2018-08-14] MEDS ORDERED: MINO100C4 PO (08:13)
--- NOTE | 2018-08-14 08:31 | REP ---
Chest x-ray: Two views. History: Systemic inflammatory response syndrome. Comparison study: May 28, 2018. Findings: EKG monitoring electrodes overlie the chest. The patient is status post lower cervical spine fusion plating. No other bony abnormality is seen. The aorta is calcific. The lungs are well inflated and clear. Pleural angles are sharp. No infiltrate is seen. Heart size is normal. Pulmonary vasculature is not increased. Impression: No active cardiopulmonary disease. Electronically Signed by Daquan Elizabeth MD 08/14/2018 08:22 A
[2018-08-14] MEDS: CLOPIDOGREL 75 MG TAB PO SCH (12:22)
[2018-08-14] MEDS: OMEPRAZOLE 20 MG CAP PO SCH (12:22)
[2018-08-14] MEDS: MINOCYCLINE 50 MG CAP PO SCH (12:22)
[2018-08-14] MEDS: levETIRAcetam 250MG TABLET (KEPPRA) PO SCH ×2 (12:22→21:08)
[2018-08-14] MEDS: ENOXAPARIN 30 MG/0.3 ML SYR (J1650) SC SCH (12:23)
[2018-08-14 13:00] VITALS: BP 159/84
[2018-08-14] MEDS: VITAMIN D 1,000 INTERNATIONAL UNITS TABLET PO SCH (13:31)
[2018-08-14] MEDS: ACETAMINOPHEN 650MG ER TAB (TYLENOL ARTHRITIS) PO PRN ×2 (14:27→21:10)
[2018-08-14] MEDS: ACYCLOVIR 1,000 MG in D5W 250 ML IV SCH ×2 (16:48→23:40)
[2018-08-14] MEDS: TRIFLURIDINE 1% OPHTH SOLN 7.5 ML OS SCH ×4 (19:01→23:41)
[2018-08-14] MEDS: ATORVASTATIN 20 MG TAB PO SCH (21:08)
[2018-08-14] MEDS: MONTELUKAST 10 MG TAB PO SCH (21:08)
[2018-08-14 22:00] VITALS: BP 157/83
[2018-08-15] MEDS: TRIFLURIDINE 1% OPHTH SOLN 7.5 ML OS SCH ×12 (01:37→23:42)
[2018-08-15 01:53] VITALS: BP 156/82
[2018-08-15 06:00] VITALS: BP 158/83
[2018-08-15 06:18] LABS: HEMATOCRIT 39.2 % (42.0-52.0); HEMOGLOBIN 12.7 g/dl (13.5-17.5); MEAN CORPUSCULAR HEMOGLOBIN 27.2 pg (27.0-33.0); MEAN CORPUSCULAR HGB CONC 32.4 g/dl (32.0-36.5); MEAN CORPUSCULAR VOLUME 83.9 fl (80.0-96.0); PLATELET COUNT, AUTOMATED 143 10^3/uL (150-450); RED BLOOD COUNT 4.67 10^6/uL (4.30-6.10); WHITE BLOOD COUNT 5.9 10^3/uL (4.0-10.0)
[2018-08-15] MEDS: ACETAMINOPHEN 650MG ER TAB (TYLENOL ARTHRITIS) PO PRN ×2 (06:18→20:38)
[2018-08-15 06:41] LABS: CALCIUM LEVEL 8.1 MG/DL (8.8-10.2); CREATININE FOR GFR 1.28 MG/DL (0.70-1.30); POTASSIUM SERUM 3.4 MEQ/L (3.5-5.1)
[2018-08-15] MEDS: ENOXAPARIN 30 MG/0.3 ML SYR (J1650) SC SCH (09:05)
[2018-08-15] MEDS: VITAMIN D 1,000 INTERNATIONAL UNITS TABLET PO SCH (09:07)
[2018-08-15] MEDS: levETIRAcetam 250MG TABLET (KEPPRA) PO SCH ×2 (09:07→20:39)
[2018-08-15] MEDS: CLOPIDOGREL 75 MG TAB PO SCH (09:07)
[2018-08-15] MEDS: ACYCLOVIR 1,000 MG in D5W 250 ML IV SCH ×3 (09:07→23:42)
[2018-08-15] MEDS: OMEPRAZOLE 20 MG CAP PO SCH (09:07)
[2018-08-15] MEDS: MINOCYCLINE 50 MG CAP PO SCH (10:30)
[2018-08-15] MEDS ORDERED: FLUORESCEIN OPHTH 1 MG STRIP As Ordered ONE (11:50)
--- NOTE | 2018-08-15 11:53 | HPE ---
DATE OF ADMISSION: 08/14/2018 Horace's history and physical was generated through the office based electronic record and a copy should be scanned into the chart.
--- NOTE | 2018-08-15 12:07 | IPNPDOC ---
Subjective Date Seen The patient was seen on 08/15/18. Subjective Chief Complaint/HPI Pt is a 77 yo male with PMH of seizure, right sided CVA with TIA a week after that, and CLL presents at [facility] d/t weakness. It was noted that he has an eye infection which was treated with antibiotics outpt prior. He has vesicles on left forehead as well as left red eye for the past 3-4 days. It was noted that he had some generalized weakness yesterday and was not able to stand and walk like he used to. Events since last encounter Patient stated that he is doing ok this morning but cannot open his left eye still. He reports photophobia when he was still able to open his left eye. He said there's no vision changes on his right eye. Denies chills, headache, neck pain or neck stiffness this morning. Patient reports that he has not been able to walk yet due to weakness, and admits to that his right lower extremity is weaker compared to the left. Denies any numbness or tingling upon touch of skin. General: Denies: Chills Constitutional: Reports: Weakness; Denies: Chills Eyes: Reports: Pain (left eye), Vision change (left eye), Eyelid inflammation (left), Redness (left eyelid) Skin: Reports: Rash, Lesions Pulmonary: Denies: Dyspnea, Cough, Pleuritic Chest Pain Cardiovascular: Denies: Chest Pain, Palpitations, Orthopnea Gastrointestinal: Denies: Nausea, Vomiting, Abdominal Pain Musculoskeletal: Denies: Neck Pain Neurological: Reports: Weakness; Denies: Numbness, Confusion Psych: Reports: Mood Normal Objective Physical Examination General Exam: Positive: Alert, Cooperative, Mild Distress Eye Exam: Positive: Conjunctiva & lids normal (left eye lid erythematous with crusts observed. Closed and difficult to open passively or actively), EOMI (On the right eye only); Negative: Sclera icteric ENT Exam: Positive: Mucous membr. moist/pink, Nares Patent, Other ENT (Patient able to rotate the neck to bilateral directions w/o pain) Neck Exam: Positive: Supple Chest Exam: Positive: Clear to auscultation, Normal air movement; Negative: Rales, Rhonchi, Wheezing Abdomen Exam: Positive: Normal bowel sounds, Soft; Negative: Tenderness Skin Exam: Positive: Rash (Erythema in left eye lid, periorbital area, and glabella area), Lesion (Crusted lesions as well as vescicles that are draining noted on eft side of forehead. erythema noted in glabella area) Neuro Exam: Positive: Sensation Intact, Cranial Nerves 3-12 NL (CN 2~12 roughly stable except that left eye cannot be evaluated as it stays shut); Negative: Strength at 5/5 X4 ext (+3/5 strength in right lower extremity. +5/5 in all the other extremities) Psych Exam: Positive: Mental status NL, Memory Intact, Oriented x 3; Negative: Anxiety Assessment /Plan Problems (1) Zoster meningitis Status: Acute Response to Treatment: Improving Problem Text: Patient denies any chills, headache, or neck pain. Low grade fever w/o leukocytosis. No neck stiffness on physical exam. Cognitive function and memory grossly normal. Day 2 on IV Acyclovir. Generalized weakness and RLE weakness; PT eval ordered and activity per PT. Case discussed with Dr. Gillespie and she agreed to the consultation. Dr. Gillespie recommends 2~3 wks of IV acyclovir. Patient is planned to have PICC line insertion on 08/16/18 (2) Herpes zoster ophthalmicus of left eye Status: Acute Problem Text: Case was discussed with Dr. Ulloa. Patient's cornea on left eye was spared. Erythema and crusts in left upper eyelid noted as well as Left eye pain. Photophobia while he was still able to open the left eye. Trifluridine eye drop as scheduled Dr. Gillespie is consulted. Dr. Gillespie recommends 2~3 wks of IV therapy. Patient is planned to have PICC line insertion on 08/16/18 (3) CVA (cerebral vascular accident) Problem Text: Hx of right thalamic stroke; denies sequalae from prior CVA. Hx of another TIA a week after the right thalamic stroke. Continue Lipitor and Clopidogreol (4) Epilepsy Status: Chronic Response to Treatment: Stable, Controlled Problem Text: Hx of seizure d/o. Continue Keppra. Seizure precaution ordered (5) Paroxysmal atrial fibrillation Problem Text: Patient was not in A. fib at the time of the examination. HR mildly elevated roughly stable 96~100 today. Pt denies chest pain, palpitation, or SOB. Continue Clopidogrel and Atorvastatin. Continue vital signs as scheduled (6) Hypertension Status: Chronic Problem Text: Not on blood pressure medication as an outpatient. BP roughly stable with SBP in the 150s. Continue vital signs as scheduled and will continue to monitor patient's symptoms. (7) Hyponatremia Status: Acute Problem Text: Serum osmolality 281. Likely d/t hemodilution vs elevated lipids/hyperlipidemia. Patient is tolerating PO diet well. Continue to monitor BMP (8) Hypokalemia Problem Text: Mild. K at 3.4, KCl 20meq powder ordered. Patient tolerating PO regular diet well. Continue to follow up with BMP Plan/VTE VTE Prophylaxis Ordered?: Yes (SC lovenox) Plan Family Medicine Attending Note: I was present on site to supervise Quang Ca (TY). We discussed the history and exam. I confirmed the fitzgerald elements during my [id number] encounter with the patient. We conferred on the assessment and plan; I agree with the note as documented. I spoke with Dr. Elias Ulloa and he confirmed that the cornea seems to be spared thus far. He would like the patient to get gancyclovir drops and has sent the prescription to [facility] since the hospital pharmacy doesn't seem to stock them. I also spoke with Dr. Gillespie and she confirmed that IV acyclovir is the right medication. He will need it for 2-3 weeks (we will try to clarify that time frame a little before discharge). We are planning for a PICC tomorrow to help facilitate IV therapy. 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 ID and ophtho consulted. Symptoms improving; low grade fever. PICC line planned 08/16/18 as pt need 2-3 wks of IV Acyclovir. VS, I&O, 24H, Fishbone Vital Signs/I&O Vital Signs Date Time Temp Pulse Resp B/P (MAP) Pulse Ox O2 Delivery O2 Flow Rate FiO2 08/15/18 06:00 101.4 96 18 158/83 (108) 99 Room Air I&O- Last 24 Hours up to 6 AM 08/15/18 06:00 Intake Total 2650 ml Output Total 100 ml Balance 2550 ml Laboratory Data 24H LABS Laboratory Tests 2 08/15/18 05:40: Nucleated Red Blood Cells % (auto) 0.0 08/15/18 06:00: Anion Gap 8, Glomerular Filtration Rate 58.0, Blood Urea Nitrogen 20H, Creatinine 1.28, Sodium Level 132L, Potassium Level 3.4L, Chloride Level 99, Carbon Dioxide Level 25, Calcium Level 8.1L CBC/BMP Laboratory Tests 08/15/18 05:40 Red Blood Count 4.67, Mean Corpuscular Volume 83.9, Mean Corpuscular Hemoglobin 27.2, Mean Corpuscular Hemoglobin Concent 32.4, Red Cell Distribution Width 14.8 H 08/15/18 06:00 Calcium Level 8.1 L Microbiology Microbiology 08/14/18 Blood Culture - Preliminary, Resulted No growth after 24 hours . All specim... 08/14/18 Blood Culture - Preliminary, Resulted No growth after 24 hours . All specim... 08/14/18 - Final, Complete Varicella Zoster Virus (Vzv) 08/14/18 Gram Stain - Final, Resulted 08/14/18 CSF Culture, Resulted Pending QUANG CA DO Aug 15, 2018 12:07 Alban Viera MD Aug 15, 2018 22:06
[2018-08-15] MEDS ORDERED: PROPARACAINE 0.5% OPHTH SOL 15ML As Ordered ONE (12:08)
[2018-08-15] MEDS ORDERED: POTASSIUM CHL PWD 20 MEQ PACKET PO ONE (14:00)
[2018-08-15] MEDS ORDERED: ZIRGAN 0.15% OS SCH (17:00)
--- NOTE | 2018-08-15 17:27 | CR ---
DATE OF PROCEDURE: 08/15/2018 CHIEF COMPLAINT: "Left eyelid swelling" HISTORY OF THE PRESENT ILLNESS: This is a 77-year-old male who presented to the emergency department on Wednesday with left eyelid swelling and crusting scabs on his forehead and left upper eyelid. Interestingly, the patient was seen in the office just recently on 08/12/2018 without any evidence of Zoster infection at that time. He did have a small impacted meibomian gland of his left upper eyelid. His vision was 20/20 in the right eye and 20/25 in the left eye. The patient noted a change attendant the weekend with multiple spots appearing on his left forehead that were burning in nature, as well as some mild pain and presented to the ED 08/14/18. 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 Today, he is in no acute distress, laying comfortably in bed. Denies any eye pain, but states his left eyelids are stuck together. He denies any fevers, chills, or neck pain or stiffness at this time. Review of systems: Noncontributory except: mild weakness. He is alert and oriented times three, accurately recalls seeing me in the office last week. Eyes: Please see above. PHYSICAL EXAMINATION: This was performed at the bedside on the nursing gregg, so this is extremely limited pen light exam. Visual acuity in the right eye is patient able to see TV across the room without difficulty, and in the left eye equally so when eyelids are opened for him. Full extraocular muscles with no restriction in any gaze. Pupils: NO APD by reverse. Lids, lashes and adnexa: classic V1 dermatomal zoster-type lesions on his left forehead and eyebrow and extending down to his upper and lower eyelids. There is mild ulceration on the left upper eyelid. Conjunctiva: moderate grossly chemosis in the left eye with moderate injection. Intraocular pressure (IOP) was assessed by finger tension and appears to be normal by finger palpation. Cornea: appears clear, although this is a limited exam due to significant periocular swelling, but there appears to be no dendritic or pseudo-dendritic lesions on the left cornea. Lens: He has a posterior chamber intraocular lens (PCIOL). Iris is within normal limits. Dilated exam is deferred at this time. IMAGING: The patient did have a lumbar puncture, which was noted positive for the varicella zoster virus, and he was initiated on intravenous (IV) acyclovir and topical Viroptic because Zirgan was not available on hospital formulary. ASSESSMENT AND PLAN: 1. 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 Fortunately, at this time, the patient has no corneal lesions which have often compromise visual acuity. Although, given the degree of infection with encephalitis suggests there may be some autoimmune compromise. Due to the limited exam and extensive involvement of the superior and lower eyelids with very obvious lesions there, there is risk of spread to the cornea. He has been prescribed Zirgan to a local pharmacy, which his brother, Isidro, who is a Power of Tubing Tester, will be able to bring this medication to the hospital so that it can be administered by the nurses five times a day. Strongly consider ID consultation. 2. Chronic blepharitis and meibomian gland disease. The patient should be continued on minocycline 100 mg daily, as well as adding warm compresses to the upper and lower eyelids twice a day. The patient will be reexamined in approximately 48 hours after some of the swelling has subsided, so that better able to assess the cornea. Consider infectious disease consultation given zoster is a relatively common presentation in my office, and it is not often that we see it cause encephalitis. Thank you for this consultation. Please call if there is any change in the patient's condition. CRISPIN
[2018-08-15] MEDS: ATORVASTATIN 20 MG TAB PO SCH (20:39)
[2018-08-15] MEDS: MONTELUKAST 10 MG TAB PO SCH (20:39)
[2018-08-15 22:00] VITALS: BP 157/72
[2018-08-16] MEDS: TRIFLURIDINE 1% OPHTH SOLN 7.5 ML OS SCH ×5 (01:40→10:00)
[2018-08-16 06:00] VITALS: BP 156/81
[2018-08-16 06:17] LABS: HEMATOCRIT 35.9 % (42.0-52.0); HEMOGLOBIN 11.9 g/dl (13.5-17.5); MEAN CORPUSCULAR HGB CONC 33.1 g/dl (32.0-36.5); MEAN CORPUSCULAR VOLUME 81.6 fl (80.0-96.0); PLATELET COUNT, AUTOMATED 147 10^3/uL (150-450); WHITE BLOOD COUNT 8.8 10^3/uL (4.0-10.0)
[2018-08-16] MEDS: ACETAMINOPHEN 650MG ER TAB (TYLENOL ARTHRITIS) PO PRN ×2 (06:28→20:08)
[2018-08-16 06:41] LABS: BLOOD UREA NITROGEN 18 MG/DL (7-18); CALCIUM LEVEL 8.1 MG/DL (8.8-10.2); CARBON DIOXIDE LEVEL 26 MEQ/L (21-32); CHLORIDE LEVEL 98 MEQ/L (98-107); CREATININE FOR GFR 1.09 MG/DL (0.70-1.30); GLOMERULAR FILTRATION RATE > 60.0 (>42); GLUCOSE, FASTING 104 MG/DL (70-100); POTASSIUM SERUM 3.1 MEQ/L (3.5-5.1); SODIUM LEVEL 134 MEQ/L (136-145)
[2018-08-16] MEDS ORDERED: POTASSIUM CHLORIDE 10 MEQ SR TABLET PO ONE (07:15)
--- NOTE | 2018-08-16 07:38 | IPNPDOC ---
Subjective Date Seen The patient was seen on 08/16/18. Subjective Chief Complaint/HPI Pt still has a low grade fever overnight. Denies neck stiffness. St Objective Physical Examination General Exam: Positive: Alert, Cooperative, Mild Distress Eye Exam: Positive: Conjunctiva & lids normal (left eye lid erythematous with crusts observed. Closed and difficult to open passively or actively), EOMI (On the right eye only); Negative: Sclera icteric ENT Exam: Positive: Mucous membr. moist/pink, Nares Patent, Other ENT (Patient able to rotate the neck to bilateral directions w/o pain) Neck Exam: Positive: Supple Chest Exam: Positive: Clear to auscultation, Normal air movement; Negative: Rales, Rhonchi, Wheezing Abdomen Exam: Positive: Normal bowel sounds, Soft; Negative: Tenderness Skin Exam: Positive: Rash (Erythema in left eye lid, periorbital area, and glabella area), Lesion (Crusted lesions as well as vescicles that are draining noted on eft side of forehead. erythema noted in glabella area) Neuro Exam: Positive: Sensation Intact, Cranial Nerves 3-12 NL (CN 2~12 roughly stable except that left eye cannot be evaluated as it stays shut); Negative: Strength at 5/5 X4 ext (+3/5 strength in right lower extremity. +5/5 in all the other extremities) Psych Exam: Positive: Mental status NL, Memory Intact, Oriented x 3; Negative: Anxiety Assessment /Plan Problems (1) Zoster meningitis Status: Acute Response to Treatment: Improving Problem Text: Patient denies any chills, headache, or neck pain. Low grade fever w/o leukocytosis. No neck stiffness on physical exam. Cognitive function and memory grossly normal. Day 2 on IV Acyclovir. Generalized weakness and RLE weakness; PT eval ordered and activity per PT. Case discussed with Dr. Gillespie and she agreed to the consultation. Dr. Gillespie recommends 2~3 wks of IV acyclovir. Patient is planned to have PICC line insertion on 08/16/18 (2) Herpes zoster ophthalmicus of left eye Status: Acute Problem Text: Case was discussed with Dr. Ulloa. Patient's cornea on left eye was spared. Erythema and crusts in left upper eyelid noted as well as Left eye pain. Photophobia while he was still able to open the left eye. Trifluridine eye drop as scheduled Dr. Gillespie is consulted. Dr. Gillespie recommends 2~3 wks of IV therapy. Patient is planned to have PICC line insertion on 08/16/18 (3) CVA (cerebral vascular accident) Problem Text: Hx of right thalamic stroke; denies sequalae from prior CVA. Hx of another TIA a week after the right thalamic stroke. Continue Lipitor and Clopidogreol (4) Epilepsy Status: Chronic Response to Treatment: Stable, Controlled Problem Text: Hx of seizure d/o. Continue Keppra. Seizure precaution ordered (5) Paroxysmal atrial fibrillation Problem Text: Patient was not in A. fib at the time of the examination. HR mildly elevated roughly stable 96~100 today. Pt denies chest pain, palpitation, or SOB. Continue Clopidogrel and Atorvastatin. Continue vital signs as scheduled (6) Hypertension Status: Chronic Problem Text: Not on blood pressure medication as an outpatient. BP roughly stable with SBP in the 150s. Continue vital signs as scheduled and will continue to monitor patient's symptoms. (7) Hyponatremia Status: Acute Problem Text: Serum osmolality 281. Urine Na and Urine osmolality ordered as serum osmo close to 280 thus r/o other causes of hypoonatremia; but likely d/t hemodilution vs elevated lipids/hyperlipidemia. Patient is tolerating PO diet well. Continue to monitor BMP (8) Hypokalemia Problem Text: Mild. K at 3.1, KCl 40meq powder ordered. Patient tolerating PO regular diet well. Unlikely but urine K ordered to r/o RTA 1 and 2. Continue to follow up with BMP Plan/VTE VTE Prophylaxis Ordered?: Yes (SC lovenox) VS, I&O, 24H, Fishbone Vital Signs/I&O Vital Signs Date Time Temp Pulse Resp B/P (MAP) Pulse Ox O2 Delivery O2 Flow Rate FiO2 08/16/18 06:27 100.6 08/15/18 22:00 68 18 157/72 (100) 95 08/15/18 06:00 Room Air I&O- Last 24 Hours up to 6 AM 08/16/18 05:59 Intake Total 810 ml Output Total 0 ml Balance 810 ml Laboratory Data 24H LABS Laboratory Tests 2 08/15/18 14:12: Osmolality 281 08/16/18 05:56: Nucleated Red Blood Cells % (auto) 0.0, Anion Gap 10, Glomerular Filtration Rate > 60.0, Blood Urea Nitrogen 18, Creatinine 1.09, Sodium Level 134L, Potassium Level 3.1L, Chloride Level 98, Carbon Dioxide Level 26, Calcium Level 8.1L CBC/BMP Laboratory Tests 08/16/18 05:56 Red Blood Count 4.40, Mean Corpuscular Volume 81.6, Mean Corpuscular Hemoglobin 27.0, Mean Corpuscular Hemoglobin Concent 33.1, Red Cell Distribution Width 14.5, Calcium Level 8.1 L Microbiology Microbiology 08/14/18 Blood Culture - Preliminary, Resulted No Growth after 48 hours. All Specime... 08/14/18 Blood Culture - Preliminary, Resulted No Growth after 48 hours. All Specime... 08/14/18 - Final, Complete Varicella Zoster Virus (Vzv) 08/14/18 Gram Stain - Final, Resulted 08/14/18 CSF Culture, Resulted Pending QUANG CA DO Aug 16, 2018 07:38
[2018-08-16] MEDS: levETIRAcetam 250MG TABLET (KEPPRA) PO SCH ×2 (09:19→20:09)
[2018-08-16] MEDS: OMEPRAZOLE 20 MG CAP PO SCH (09:20)
[2018-08-16] MEDS: CLOPIDOGREL 75 MG TAB PO SCH (09:20)
[2018-08-16] MEDS: MINOCYCLINE 50 MG CAP PO SCH ×2 (09:20→20:08)
[2018-08-16] MEDS: ENOXAPARIN 30 MG/0.3 ML SYR (J1650) SC SCH (09:21)
[2018-08-16] MEDS: VITAMIN D 1,000 INTERNATIONAL UNITS TABLET PO SCH (09:21)
[2018-08-16] MEDS: ACYCLOVIR 1,000 MG in D5W 250 ML IV SCH ×3 (09:23→23:53)
--- NOTE | 2018-08-16 09:43 | CR ---
DATE OF CONSULTATION: 08/15/2018 REQUESTING PHYSICIAN: Dr. Viera REASON FOR CONSULTATION: For evaluation of herpes zoster ophthalmicus with encephalitis. HISTORY OF PRESENT ILLNESS: Mr. Mcrae is a 77-year-old gentleman who presented to his primary care provider with left eye swelling associated with fever. The patient had been seen by Dr. Ulloa 3 days prior to admission for evaluation and was treated with minocycline. He had increased confusion and in the emergency room the patient had a lumbar puncture which was consistent with infection with elevated total protein, white cells and the patient had fever up to 102. He denies any headache or neck stiffness. He denies any cough or shortness of breath. The patient states that he has a history of seizure. He is somewhat confused but is able to give some history. He was seen in consultation by Dr. Ulloa, who on limited exam due to significant eyelid swelling did not show any evidence of involvement of the cornea. The patient has been on IV acyclovir 1 gram every 8 hours since admission. He is also taking minocycline per recommendation of Dr. Ulloa. PAST MEDICAL HISTORY: Significant for CLL, right thalamic stroke, hypertension, seizure disorder, fracture of fifth metatarsal, left ventricular hypertrophy, left atrial enlargement with trace aortic insufficiency. Echocardiogram 05/2018 with history of cervical spinal stenosis with fusion, peripheral venous ulcer disease, follows at the wound clinic by Dr. Escobar. PAST SURGICAL HISTORY: Anterior cervical diskectomy and fusion, bilateral knee replacement 12/2015, appendectomy, benign breast biopsy 7 years ago, testicular surgery 15 years, carpal tunnel surgery. FAMILY HISTORY Father of lung cancer. Mother alive at 97 and has skin cancer and valvular heart disease. SOCIAL HISTORY: He quit smoking more than 10 years ago. He drinks two to three cups of coffee a day. He is a . He has two children and they are both in [place]. REVIEW OF SYSTEMS: The patient had fevers, no chills. No nausea, vomiting or diarrhea. No cough or shortness of breath. He did have confusion and dizziness. He states he does not drive anymore because of his chronic dizziness and imbalance. PHYSICAL EXAMINATION: Chronically ill-appearing gentleman in no apparent distress. HEENT: Vesicular rash involving the left forehead to left eyelid, upper and lower, with significant swelling, the eye is closed shut. There are no lesions on the nose. The lesions involve the scalp, all on the left side. Some of the lesions are vesicular, others have turned into eschars. Neck: No stiffness. Negative Kernig and Brudzinski. HEART: Normal S1, S2. No murmurs. LUNGS: Clear. No wheezes, rales or rhonchi. ABDOMEN: Soft, nontender. No hepatosplenomegaly. EXTREMITIES: Trace lower extremity edema. There is a small open ulcer on the left anterior alfaro measuring 2 cm with a scab, no surrounding cellulitis. Onychomycoses of all 10 toenails with very long nails. Dry skin. NEUROLOGIC: Alert and oriented times three with some episodes of confusion where he has to be reoriented to place, being in the hospital. Upper extremity strength normal, right lower extremity strength is a little weaker than the left. The patient states that this is not a new findings. Temperature 102.5, pulse 68, respirations 18, blood pressure 157/72, oxygen saturation 95% on room air. LABORATORIES: White count 5.9, hemoglobin 12.7, hematocrit 39.2, platelets 143. ESR 35. Sodium 132, potassium 3.4, chloride 99, bicarbonate 25, BUN 20, creatinine 1.28, glucose 136, calcium 8.1, lactic acid 1.8. CSF had 77 white cells with 98% mononuclear cells, 1.3% PMNs, glucose 54, total protein 94. Blood cultures, two sets, no growth after 48 hours. Multiplex PCR positive for VZV zoster. Bacterial culture is pending. IMAGING: Cervical spine CT shows extensive postoperative change from anterior fusion of C3 to C7 with extensive degenerative changes. Lumbar spine CT showed normal lumbar alignment with stable L5 pars defect. No significant spondylolisthesis. Multiple degenerative joint disease at all levels. Head CT showed small vessel ischemic changes and moderate generalized atrophy. No evidence of intracranial hemorrhage. ALLERGIES: NO KNOWN DRUG ALLERGIES. 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 Continue with IV acyclovir at a dose of 1 gram every 8 hours. Monitor for acute kidney injury from acyclovir as it can cause crystalluria and acute kidney injury and the dose may be reduced. The patient will need at least 2 weeks of antivirals. I doubt the patient will be able to go back home with IV antiviral agents and therefore may need to remain here for the full course or at a long term for rehabilitation. Increase dose of minocycline to 100 mg by mouth twice a day per recommendation of Dr. Ulloa, the patient had Meibomian disease. If the patient loses IV access, may need to have a PICC line. If he has adequate peripheral IV, even a midline would be enough as he will only need 2 weeks of IV acyclovir. MTDD
--- NOTE | 2018-08-16 11:13 | IPNPDOC ---
Subjective Date Seen The patient was seen on 08/16/18. Subjective Chief Complaint/HPI Patient was examined at bedside. He states that he is in general feeling better and denies neck stiffness or headache. However, he states that he has a new- onset right sided eye pain that started since yesterday afternoon, rated 4-5/10. Low grade fever overnight. He states that he is still unable to open his left eye, and the pain in the right eye rates 8-9/10. Reports no visual changes on his right eye. Patient's brother came in during my second visit to patient's room and brought Zargen topical eyedrop that he picked up from outpt pharmacy as a prescription from ophthamology. Patient's brother also mentioned that pt has a chronic ulcer on buttock that he has been following wound clinic as an outpatient; he usually goes to the wound clinic and get the dressing changed every 1-2 week. Next appt with wound care clinic is scheduled 08/24/18. General: Denies: Chills Constitutional: Reports: Fever; Denies: Chills Eyes: Reports: Pain (Bilateral, left worse than rght), Eyelid inflammation (Bilateral), Redness (Bilateral); Denies: Vision change (Unable to open left eye but denies vision changes in right eye) ENT: Denies: Head Aches Skin: Reports: Breakdown (in buttock area) Pulmonary: Denies: Dyspnea Cardiovascular: Denies: Chest Pain, Palpitations Gastrointestinal: Denies: Nausea, Vomiting, Abdominal Pain, Diarrhea, Constipation Musculoskeletal: Denies: Neck Pain Neurological: Reports: Weakness (generalized and bilateral lower extremity weakness); Denies: Change in speech Objective Physical Examination General Exam: Positive: Alert, Cooperative, Mild Distress Eye Exam: Positive: EOMI (On the right eye only; pain with right eye movements. Unable to assess left eye EOM as it stays shut), Other Eye Symptoms; Negative: Conjunctiva & lids normal (left eye lid erythematous with crusts observed. Closed and difficult to open passively or actively. Right upper eyelid mildly erythematous and swollen.), Sclera icteric ENT Exam: Positive: Mucous membr. moist/pink, Nares Patent Neck Exam: Positive: Supple; Negative: JVD Chest Exam: Positive: Clear to auscultation, Normal air movement; Negative: Rales, Rhonchi, Wheezing Heart Exam: Positive: Rate Normal, Regular Rhythm, Normal S1, Normal S2; Negative: Murmurs Abdomen Exam: Positive: Normal bowel sounds, Soft; Negative: Tenderness Male Exam: Positive: Lesions (bilateral inguinal rash, topical cream noted. Sacral ulcers covered with dressing) Skin Exam: Positive: Rash (Erythema in left eye lid, periorbital area, and glabella area. Bilateral inguinal area, topical cream noted), Lesion (Crusted lesions as well as vescicles that are draining noted on eft side of forehead. erythema noted in glabella area), Other skin issue (One vesicle on inner left thigh. ) Neuro Exam: Positive: Strength at 5/5 X4 ext (+3/5 strength in right lower extremity. +5/5 in all the other extremities), Sensation Intact, Cranial Nerves 3-12 NL (CN 2~12 roughly stable except that left eye cannot be evaluated as it stays shut) Psych Exam: Positive: Mental status NL, Memory Intact, Oriented x 3; Negative: Anxiety Assessment /Plan Problems (1) Zoster meningitis Status: Acute Response to Treatment: Improving Discussed With: Acetylene Gas Compressor Problem Text: Low grade fever w/o leukocytosis. No neck stiffness, neck pain, or headache. Cognitive function and memory grossly normal. Day 3/14 on IV Acyclovir per Dr. Gillespie recommendation; may receive IV acyclovir from peripheral IV line after d/c. Generalized weakness and RLE weakness;PT recommends d/c to rehab when medically stable; activity per PT. Herpetic meningitis commonly seen in immunocompromised pts; Pt has CLL not on medication; HIV unlikely but HIV screen ordered to r/o. ESR improving and CRP elevated, continue to f/u on CRP, CBC, and vital signs as scheduled (2) Herpes zoster ophthalmicus of left eye Status: Acute Response to Treatment: Stable Discussed With: Acetylene Gas Compressor Problem Text: New-onset right sided swelling and eye pain w/o vision change of right eye; questionable d/t herpes ophthamicus; Dr. Ulloa will evaluate pt 08/17/18. Erythema and crusts in left upper eyelid noted. Photophobia while he was still able to open the left eye. Infectious disease and ophtho are consulted. Continue Trifluridine eye drop; start Zargan OU as scheduled per Dr. Ulloa's recommendation. Continue IV Acyclovir day 3/14. 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 Continue Minocycline PO and start warm compress [id number] Dr. Ulloa. Continue to monitor the pt for signs and symptoms. ESR and CRP both elevated;continue to f/u with CRP (4) CVA (cerebral vascular accident) Status: Chronic Response to Treatment: Stable Problem Text: Hx of right thalamic stroke; denies sequalae from prior CVA. Hx of another TIA a week after the right thalamic stroke. Continue Lipitor and Clopidogreol (5) Epilepsy Status: Chronic Response to Treatment: Stable, Controlled Problem Text: Hx of seizure d/o. Continue Keppra. Seizure precaution (6) Paroxysmal atrial fibrillation Status: Chronic Response to Treatment: Controlled Problem Text: Not in A. fib at the time of the examination. HR wnl. Continue Clopidogrel and Atorvastatin. Continue vital signs as scheduled (7) Hypertension Status: Chronic Response to Treatment: Stable Problem Text: Not on blood pressure medication as an outpatient. BP roughly stable with SBP in the 150s. Continue vital signs as scheduled and will continue to monitor patient's symptoms. (8) Hyponatremia Status: Acute Problem Text: Improving, 2X Na 134 today compared to 131 yesterday. Blood glucose stable. Asymptomatic except generalized weakness Serum osmolality 281. Urine Na and Urine osmolality ordered as serum osmo close to 280 thus r/o other causes of hypoonatremia; Pt euvolemic with urine osmo>100, hyponatremia may be d/t SIADH, tertiary adrenal insufficiency d/t CLL/meningitis, hemodilution, or elevated lipids/hyperlipidemia. Patient is tolerating PO diet well. Continue to monitor BMP. AM cortisol and ACTH ordered. (9) Hypokalemia Status: Resolved Problem Text: K at 3.1 this morning compared to 3.4 yesterday, KCl 40meq powder once ordered; recheck this after was 3.9, resolved. Patient tolerating PO regular diet well. Urine K wnl thus RTA 1 and 2 r/o. Continue to follow up with BMP. K level ordered for 08/16 PM (10) Cutaneous candidiasis Status: Chronic Response to Treatment: Stable Problem Text: Physical exam of the inguinal areas and buttock area was done in the presence of a banquet houseperson from nursing. Bilateral inguinal area erythematous rash; white color cream noted which was likely applied while as outpt. Nystatin powder Q12hP redness/irritation. Continue to monitor (11) Sacral pressure ulcer Status: Chronic Response to Treatment: Stable Problem Text: Likely 2/2 prolonged sitting at home. Patient has been following wound care as an outpatient. [facility] Jun 2018. Wound care ordered. PT and OT ordered. Activity per PT/OT (12) Weakness generalized Status: Chronic Response to Treatment: Stable Problem Text: PT ordered, 08/15 not recommends to con rehab after d/c. OT ordered. Activity per PT/OT Plan/VTE VTE Prophylaxis Ordered?: Yes (SC lovenox) Plan IVF: Continue Diet: Continue Current Therapy: PT Medications: Replete Electrolytes PO Diagnostics: Check Labs, Repeat Labs in AM Family Medicine Attending Note: I was present on site to supervise VENKATESH Dacosta. We discussed the history and exam. I confirmed the fitzgerald elements during my [id number] encounter with the patient. We conferred on the assessment and plan; I agree with the note as documented. When I spoke to Mr. Mcrae he reported that his pain was generally stable and he did not feel we needed to try to get ahold of Dr. Ulloa early. We do anticipate Dr. Ulloa visiting again tomorrow. 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 Right eye new-onset pain and swelling. Pt started Zargen this morning and Dr. Ulloa will see pt 08/17/18. Hypokalemia resolved. Hyponatremia improving; workup ordered VS, I&O, 24H, Fishbone Vital Signs/I&O Vital Signs Date Time Temp Pulse Resp B/P (MAP) Pulse Ox O2 Delivery O2 Flow Rate FiO2 08/16/18 06:27 100.6 08/16/18 06:00 82 18 156/81 (106) 95 Room Air I&O- Last 24 Hours up to 6 AM 08/16/18 06:00 Intake Total 810 ml Output Total 0 ml Balance 810 ml Laboratory Data 24H LABS Laboratory Tests 2 08/15/18 14:12: Osmolality 281 08/16/18 05:56: Nucleated Red Blood Cells % (auto) 0.0, Anion Gap 10, Glomerular Filtration Rate > 60.0, Blood Urea Nitrogen 18, Creatinine 1.09, Sodium Level 134L, Potassium Level 3.1L, Chloride Level 98, Carbon Dioxide Level 26, Calcium Level 8.1L, C- Reactive Protein, Quantitative 11.50H CBC/BMP Laboratory Tests 08/16/18 05:56 Red Blood Count 4.40, Mean Corpuscular Volume 81.6, Mean Corpuscular Hemoglobin 27.0, Mean Corpuscular Hemoglobin Concent 33.1, Red Cell Distribution Width 14.5, Calcium Level 8.1 L Microbiology Microbiology 08/14/18 Blood Culture - Preliminary, Resulted No Growth after 48 hours. All Specime... 08/14/18 Blood Culture - Preliminary, Resulted No Growth after 48 hours. All Specime... 08/14/18 - Final, Complete Varicella Zoster Virus (Vzv) 08/14/18 Gram Stain - Final, Complete 08/14/18 CSF Culture - Final, Complete QUANG CA DO Aug 16, 2018 11:13 am Alban Viera MD Aug 16, 2018 11:37 pm
[2018-08-16] MEDS ORDERED: NYSTATIN CREAM 15 GM TOP PRN (11:45)
[2018-08-16 11:51] LABS: ERYTHROCYTE SEDIMENTATION RATE 31 mm/hr (0-20)
[2018-08-16 13:07] LABS: POTASSIUM SERUM 3.9 MEQ/L (3.5-5.1)
[2018-08-16 13:33] LABS: POTASSIUM RANDOM URINE 27.1 MEQ/L
[2018-08-16] MEDS: GANCICLOVIR 0.15% OU SCH ×3 (13:52→20:09)
[2018-08-16 14:00] VITALS: BP 158/82
[2018-08-16] MEDS ORDERED: NYSTATIN 100,000 UNITS/GM TOPICAL PWD 15 GM TOP PRN (16:00)
[2018-08-16] MEDS ORDERED: TRIFLURIDINE 1% OPHTH SOLN 7.5 ML OS SCH (18:00)
[2018-08-16] MEDS: MONTELUKAST 10 MG TAB PO SCH (20:09)
[2018-08-16] MEDS: ATORVASTATIN 20 MG TAB PO SCH (20:09)
[2018-08-16 22:00] VITALS: BP 142/70
[2018-08-17] MEDS: GANCICLOVIR 0.15% OU SCH ×5 (05:46→20:15)
[2018-08-17 06:00] VITALS: BP 148/78
[2018-08-17 06:48] LABS: HEMATOCRIT 32.4 % (42.0-52.0); MEAN CORPUSCULAR VOLUME 79.6 fl (80.0-96.0); PLATELET COUNT, AUTOMATED 153 10^3/uL (150-450); RED BLOOD COUNT 4.07 10^6/uL (4.30-6.10); WHITE BLOOD COUNT 9.8 10^3/uL (4.0-10.0)
[2018-08-17 07:14] LABS: BLOOD UREA NITROGEN 13 MG/DL (7-18); C REACTIVE PROTEIN QUANTITATIV 6.26 MG/DL (0.00-0.30); CALCIUM LEVEL 7.7 MG/DL (8.8-10.2); CARBON DIOXIDE LEVEL 25 MEQ/L (21-32); CHLORIDE LEVEL 97 MEQ/L (98-107); CREATININE FOR GFR 0.86 MG/DL (0.70-1.30); GLOMERULAR FILTRATION RATE > 60.0 (>42); GLUCOSE, FASTING 93 MG/DL (70-100); POTASSIUM SERUM 3.3 MEQ/L (3.5-5.1); SODIUM LEVEL 133 MEQ/L (136-145)
[2018-08-17 07:22] LABS: ERYTHROCYTE SEDIMENTATION RATE 14 mm/hr (0-20)
[2018-08-17] MEDS ORDERED: POTASSIUM CHLORIDE 10 MEQ SR TABLET PO ONE (08:00)
[2018-08-17 08:16] LABS: ALBUMIN 2.6 GM/DL (3.2-5.2)
[2018-08-17] MEDS: ACYCLOVIR 1,000 MG in D5W 250 ML IV SCH ×3 (09:21→23:22)
[2018-08-17] MEDS: ENOXAPARIN 30 MG/0.3 ML SYR (J1650) SC SCH (09:21)
[2018-08-17] MEDS: MINOCYCLINE 50 MG CAP PO SCH ×2 (09:21→20:13)
[2018-08-17] MEDS: OMEPRAZOLE 20 MG CAP PO SCH (09:22)
[2018-08-17] MEDS: levETIRAcetam 250MG TABLET (KEPPRA) PO SCH ×2 (09:22→20:13)
[2018-08-17] MEDS: CLOPIDOGREL 75 MG TAB PO SCH (09:22)
[2018-08-17] MEDS: VITAMIN D 1,000 INTERNATIONAL UNITS TABLET PO SCH (09:24)
[2018-08-17 10:03] LABS: CORTISOL AM 19.9 UG/DL (4.3-22.4)
--- NOTE | 2018-08-17 11:58 | IPNPDOC ---
Subjective Date Seen The patient was seen on 08/17/18. Subjective Chief Complaint/HPI Patient is sitting on the chair at the time of the examination. He states his left eye feels about the same, but his feels his right eye has become more swollen. It was noted that overnight patient had an episode of confusion. He did not know why he is in the hospital, and that he got upset. However, this morning patient did not complain of anything besides his eyes. States that he is still unable to open his left eye, but he is feeling alot better with no neck stiffness, neck pain, headache, fever, or chills. It was also noted that patient has several episodes of watery to loose bowel movements yesterday. He had a hx of CLL, but he is not sure if he is cured. Said that he stopped going to oncology appt in [place] b/c it was too far. He states that he is seeing oncologist in [place] now, and medical record indicates that he was referred to Dr. Godfrey on 07/12/18. Constitutional: Denies: Chills, Fever Eyes: Reports: Pain, Eyelid inflammation, Redness ENT: Reports: Sore Throat; Denies: Head Aches Skin: Reports: Lesions (on sacrum) Pulmonary: Denies: Pleuritic Chest Pain Cardiovascular: Denies: Chest Pain, Palpitations Gastrointestinal: Reports: Diarrhea; Denies: Nausea, Vomiting, Abdominal Pain, Constipation Musculoskeletal: Denies: Neck Pain Neurological: Reports: Weakness Objective Physical Examination General Exam: Positive: Alert, Cooperative, Mild Distress Eye Exam: Positive: Conjunctiva & lids normal (Left eye stays shut with moderate-severe erythema and swelling. Right eye with chemosis, mild erythema and moderate swelling), EOMI (On the right eye only; pain with right eye movements. Unable to assess left eye EOM as it stays shut), Other Eye Symptoms; Negative: Sclera icteric ENT Exam: Positive: Mucous membr. moist/pink, Nares Patent Neck Exam: Positive: Supple; Negative: JVD Chest Exam: Positive: Clear to auscultation, Normal air movement; Negative: Rales, Rhonchi, Wheezing Heart Exam: Positive: Rate Normal, Regular Rhythm, Normal S1, Normal S2; Negative: Murmurs Abdomen Exam: Positive: Normal bowel sounds, Soft; Negative: Tenderness Male Exam: Positive: Lesions (bilateral inguinal rash resolved. Sacral ulcers covered with dressing) Skin Exam: Positive: Rash (Erythema in left eye lid, periorbital area, and glabella ), Lesion (Crusted lesions noted on left side of forehead. erythema noted in glabella area), Other skin issue (One vesicle on inner left thigh. ) Neuro Exam: Positive: Strength at 5/5 X4 ext (+4/5 strength in bilateral lower extremities. +5/5 in upper extremities), Sensation Intact, Cranial Nerves 3-12 NL (CN 2~12 roughly stable except that left eye cannot be evaluated as it stays shut) Psych Exam: Positive: Other (Patient is able to answer questions appropriately. Majority memory appears grossly intact but not oriented to place or year); Negative: Mental status NL, Anxiety, Oriented x 3 (Alert; oriented to name only) Assessment /Plan Problems (1) Zoster encephalitis Status: Acute Response to Treatment: Stable Discussed With: Oncology Physician Assistant Problem Specific Plan: Monitor Clinically, Repeat Labs Problem Text: Low grade fever overnight but resolved as of 08/17. Encephalopathy; Cognitive function grossly normal as pt able to carry normal conversation but oriented to name only. Day 4 on IV Acyclovir per Dr. Gillespie recommendation; IV acyclovir from peripheral IV line, likely complete 14 days acyclovir as inpatient. Generalized weakness and b/l weakness;PT recommends d/c to rehab when medically stable; activity per PT. 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 Will obtain medical records/contact oncology office when open tomorrow HIV unlikely but HIV screen ordered; pending to r/o. ESR and CRP improving. F/u on CRP and CBC. Continue to monitor the pt. (2) Zoster meningitis Status: Acute Response to Treatment: Improving Discussed With: Oncology Physician Assistant, Patient Problem Specific Plan: Monitor Clinically Problem Text: Low grade fever. Neck pain and stiffness completely resolved. bilateral lower extremity weakness. Day 414 on IV Acyclovir per Dr. Gillespie recommendation; IV acyclovir as inpatient from peripheral IV access. PT recommends d/c to rehab when medically stable; activity per PT. 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 CRP and ESR improving. 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 Ulloa will evaluate pt today. Erythema and swelling left upper eyelid noted. Photophobia while he was still able to open the left eye. Infectious disease and ophtho are consulted. Continue Trifluridine eye drop and Zargan OU as scheduled per Dr. Ulloa's recommendation. Continue IV Acyclovir day 11/13. F/U CRP and CBC (4) CLL (chronic lymphocytic leukemia) Status: Chronic Problem Specific Plan: Repeat Labs Problem Text: PMH of CLL. Pt unsure if he is treated. Currently not on medication per patient. He was following oncologist in [place] but referred to Dr. Godfrey in [place] in Jul 2018. No leukocytosis now. As pt has zoster encephalitis/meningitis as well as oral thrush questionable immunocompromised state. Will contact oncology office tomorrow/obtain medical records outpt. F/u CBC. Peripheral smar ordered. 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 Continue Minocycline PO and start warm compress [id number] Dr. Ulloa. Continue to monitor the pt for signs and symptoms. ESR and CRP both improving;continue to f/u with CRP and CBC (6) Oral candidiasis Status: Acute Discussed With: Patient Problem Specific Plan: Monitor Clinically Problem Text: Patient complains or throat pain/sore throat. Oral thrush noted o tongue. Clotrimozole PO 5XD. Continue to monitor (7) Hypertension Status: Chronic Response to Treatment: Stable Problem Text: Not on blood pressure medication as an outpatient. BP elevated today w/ SBP at 160. Amlodipine 2.5mg ordered. Continue vital signs as scheduled and will continue to monitor patient's symptoms. (8) Hyponatremia Status: Acute Response to Treatment: Stable Problem Specific Plan: Monitor Clinically, Repeat Labs Problem Text: 3 day X Na 134. Blood glucose stable. Asymptomatic except generalized weakness Serum osmolality 281. Urine Na and Urine osmolality ordered as serum osmo close to 280 thus r/o other causes of hypoonatremia; Pt euvolemic with urine osmo>100, hyponatremia may be d/t SIADH, tertiary adrenal insufficiency d/t CLL/meningitis, hemodilution, or elevated lipids/hyperlipidemia. Patient is tolerating PO diet well. Continue to monitor BMP. AM cortisol wnl. ACTH lvl pending. Will obtain records/discuss with pt's oncologist marychuy (9) Hypokalemia Status: Resolved Problem Specific Plan: Monitor Clinically, Repeat Labs Problem Text: K at 3.3 this morning compared to 3.1 yesterday AM and 3.9 y esterday PM, KCl 40meq powder once ordered; recheck K level in the afternoon. Mg lvl wnl. Patient tolerating PO regular diet well. Urine K wnl thus RTA 1 and 2 r/o. Continue to follow up with BMP. Start KCl 40meq PO BID. (10) Sacral pressure ulcer Status: Chronic Response to Treatment: Stable Discussed With: Patient Problem Text: Likely 2/2 prolonged sitting at home. Patient has been following wound care as an outpatient. Referral from [facility] Jun 2018. Wound care ordered. PT and OT ordered. Activity per PT/OT (11) Weakness generalized Status: Chronic Response to Treatment: Stable Discussed With: Patient Problem Specific Plan: Consult Specialist Problem Text: PT and OT recommends to con rehab after d/c. Activity per PT/OT (12) Paroxysmal atrial fibrillation Status: Chronic Response to Treatment: Controlled Discussed With: Patient Problem Specific Plan: Monitor Clinically Problem Text: Not in A. fib at the time of the examination. HR wnl. Continue Clopidogrel and Atorvastatin. Continue vital signs as scheduled (13) CVA (cerebral vascular accident) Status: Chronic Response to Treatment: Stable Problem Specific Plan: Monitor Clinically Problem Text: Hx of right thalamic stroke; denies sequalae from prior CVA. Hx of another TIA a week after the right thalamic stroke. Continue Lipitor and Clopidogreol (14) Epilepsy Status: Chronic Response to Treatment: Stable, Controlled Problem Specific Plan: Monitor Clinically Problem Text: Hx of seizure d/o. Continue Keppra. Seizure precaution (15) Cutaneous candidiasis Status: Resolved Response to Treatment: Stable, Controlled Discussed With: Patient Problem Text: Bilateral inguinal area erythematous rash resolved. Will d/c Nystatin powder Plan/VTE VTE Prophylaxis Ordered?: Yes (SC lovenox) Plan IVF: Continue Diet: Continue Current Therapy: PT, OT Medications: Replete Electrolytes PO Diagnostics: Check Labs, Repeat Labs in AM Anticipated Discharge: Other Anticipated D/C (Rehab) Family Medicine Attending Note: I was present on site to supervise VENKATESH Dacosta. We discussed the history and exam. I confirmed the fitzgerald elements during my [id number] encounter with the patient. We conferred on the assessment and plan; I agree with the note as documented. Mr. Mcrae seems to have some increased confusion today. Most is not to unusual since he has an encephalitis. We'll need to monitor his mental status carefully as she has been alert and oriented up till now. He does also complain of some increase in symptoms, he should be seeing Dr. David Ulloa later today. I'll defer the ophthal mologic evaluation to him. (armature bander) Disposition Zoster encephalitis/meningitis; A&OX1. Zoster ophth. Day 11/13 IV acyclovir from peripheral line. Oral thrush and sore throat; start clomtrimazole PO. Will obtain outpt records from oncology/discuss with oncology tmrw, peripheral smear ordered as hx of CLL. Start KCl PO 40meq BID. Cutaneous candidiasis resolved d/c nystatin powder. VS, I&O, 24H, Fishbone Vital Signs/I&O Vital Signs Date Time Temp Pulse Resp B/P (MAP) Pulse Ox O2 Delivery O2 Flow Rate FiO2 08/17/18 06:00 98.9 75 17 148/78 (101) 94 08/16/18 06:00 Room Air I&O- Last 24 Hours up to 6 AM 08/17/18 05:59 Intake Total 820 ml Output Total 0 ml Balance 820 ml Laboratory Data 24H LABS Laboratory Tests 2 08/16/18 12:51: Urine Random Osmolality 582, Urine Random Sodium 20, Urine Random Potassium 27.1 08/17/18 06:33: Nucleated Red Blood Cells % (auto) 0.0, Erythrocyte Sedimentation Rate 14, Anion Gap 11, Glomerular Filtration Rate > 60.0, Blood Urea Nitrogen 13, Creatinine 0. 86, Sodium Level 133L, Potassium Level 3.3L, Chloride Level 97L, Carbon Dioxide Level 25, Calcium Level 7.7L, C-Reactive Protein, Quantitative 6.26H, Albumin 2.6L, Cortisol AM Sample 19.9 CBC/BMP Laboratory Tests 08/16/18 12:15 08/17/18 06:33 Red Blood Count 4.07 L, Mean Corpuscular Volume 79.6 L, Mean Corpuscular Hemoglobin 27.0, Mean Corpuscular Hemoglobin Concent 34.0, Red Cell Distribution Width 14.6 H, Calcium Level 7.7 L Microbiology Microbiology 08/14/18 Blood Culture - Preliminary, Resulted No Growth after 72 hours. All specime... 08/14/18 Blood Culture - Preliminary, Resulted No Growth after 72 hours. All specime... 08/14/18 - Final, Complete Varicella Zoster Virus (Vzv) 08/14/18 Gram Stain - Final, Complete 08/14/18 CSF Culture - Final, Complete QUANG CA DO Aug 17, 2018 11:58 am Alban Viera MD Aug 19, 2018 2:47 pm
[2018-08-17 12:03] LABS: MAGNESIUM LEVEL 1.8 MG/DL (1.8-2.4)
[2018-08-17 12:36] LABS: HIV 1&2 SCREEN CENTAUR NEGATIVE (NEGATIVE)
[2018-08-17 14:00] VITALS: BP 160/68
[2018-08-17] MEDS ORDERED: amLODIPine 5 MG TAB PO ONE (17:15)
[2018-08-17] MEDS: CLOTRIMAZOLE 10 MG TROCHE PO SCH ×2 (17:58→20:13)
[2018-08-17] MEDS: MONTELUKAST 10 MG TAB PO SCH (20:13)
[2018-08-17] MEDS: ATORVASTATIN 20 MG TAB PO SCH (20:13)
[2018-08-17] MEDS: TOBRADEX OPHTH SUSP 2.5 ML OD SCH (20:14)
[2018-08-17] MEDS: POTASSIUM CHLORIDE 10 MEQ SR TABLET PO SCH (20:14)
[2018-08-17 22:00] VITALS: BP 138/76
[2018-08-18 06:00] VITALS: BP 141/88
[2018-08-18] MEDS: CLOTRIMAZOLE 10 MG TROCHE PO SCH ×5 (06:14→20:56)
[2018-08-18] MEDS: GANCICLOVIR 0.15% OU SCH ×5 (06:14→20:57)
[2018-08-18 06:32] LABS: HEMATOCRIT 33.6 % (42.0-52.0); HEMOGLOBIN 11.1 g/dl (13.5-17.5); MEAN CORPUSCULAR HEMOGLOBIN 26.9 pg (27.0-33.0); MEAN CORPUSCULAR VOLUME 81.6 fl (80.0-96.0); PLATELET COUNT, AUTOMATED 154 10^3/uL (150-450); RED BLOOD COUNT 4.12 10^6/uL (4.30-6.10); WHITE BLOOD COUNT 9.8 10^3/uL (4.0-10.0)
[2018-08-18 06:59] LABS: BLOOD UREA NITROGEN 11 MG/DL (7-18); C REACTIVE PROTEIN QUANTITATIV 4.59 MG/DL (0.00-0.30); CALCIUM LEVEL 7.8 MG/DL (8.8-10.2); CARBON DIOXIDE LEVEL 27 MEQ/L (21-32); CHLORIDE LEVEL 99 MEQ/L (98-107); CREATININE FOR GFR 0.82 MG/DL (0.70-1.30); GLOMERULAR FILTRATION RATE > 60.0 (>42); GLUCOSE, FASTING 91 MG/DL (70-100); POTASSIUM SERUM 3.7 MEQ/L (3.5-5.1); SODIUM LEVEL 133 MEQ/L (136-145)
--- NOTE | 2018-08-18 07:47 | IPNPDOC ---
Subjective Date Seen The patient was seen on 08/18/18. Subjective Chief Complaint/HPI Patient was examined while he was sitting on the chair. He states that he is feeling good, and that his eye pain improved bilaterally. Currently 5/10 for right eye and 2/10 for left eye. He was started on a new eye drop prescription by Dr. Ulloa yesterday. Patient states that his left eye vision is blurry and that he is seeing some haziness on the left eye. It was reported that patient had multiple watery to loose bowel movements.; no melena or hematochezia reported. He expressed thankfulness for the medical team and stated that the wi dical team is doing a good job Denies neck stiffness, neck pain, headache, fever, chill, or lightheadedness General: Denies: Chills, Night Sweats Constitutional: Reports: Weakness (Generalized weakness); Denies: Chills, Fever, Night Sweats ENT: Denies: Head Aches Skin: Reports: Rash, Lesions Pulmonary: Denies: Dyspnea, Cough, Pleuritic Chest Pain Cardiovascular: Denies: Chest Pain, Palpitations Gastrointestinal: Reports: Diarrhea; Denies: Nausea, Vomiting, Abdominal Pain, Constipation Musculoskeletal: Denies: Neck Pain Neurological: Reports: Weakness Objective Physical Examination General Exam: Positive: Alert, Cooperative, Mild Distress Eye Exam: Positive: Conjunctiva & lids normal (Left eye stays shut with moderate erythema and mod-sever swelling. Right eye with chemosis, mild erythema and mild-moderate swelling), EOMI (On the right eye only; Unable to assess left eye EOM as it is minimally open), Other Eye Symptoms; Negative: Sclera icteric ENT Exam: Positive: Mucous membr. moist/pink, Nares Patent, Other ENT (Oral thrush improving) Neck Exam: Positive: Supple; Negative: JVD Chest Exam: Positive: Clear to auscultation, Normal air movement; Negative: Rales, Rhonchi, Wheezing Heart Exam: Positive: Rate Normal, Regular Rhythm, Normal S1, Normal S2; Negative: Murmurs Abdomen Exam: Positive: Normal bowel sounds, Soft; Negative: Tenderness Skin Exam: Positive: Rash (Erythema in bilateral eye lids, periorbital area, and glabella ), Lesion (Crusted lesions noted on left side of forehead. erythema noted in glabella area) Neuro Exam: Positive: Cranial Nerves 3-12 NL (Unable to assessleft eye EOM as it is minimally open) Psych Exam: Positive: Oriented x 3, Other (Majority memory appears grossly intact, able to carry conversation); Negative: Anxiety Assessment /Plan Problems (1) Zoster encephalitis Status: Acute Response to Treatment: Improving Discussed With: Quarter Doper Problem Specific Plan: Monitor Clinically, Repeat Labs Problem Text: Low grade fever resolved as of 08/17. Encephalopathy resolved;A&OX3, normal conversation. Day 12/13 on IV Acyclovir per Dr. Gillespie recommendation; IV acyclovir from peripheral IV line, likely complete 14 days acyclovir as inpatient. Generalized weakness; PT recommends d/c to rehab when medically stable; activity per PT. 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 Discussed with Pt's oncologist Dr. Godfrey; pt s/p 3 chemo treatment in 2014. f/u as outpt HIV screen neg. CRP cont to improve. F/u on CRP and CBC. Continue to monitor the pt. (2) Zoster meningitis Status: Acute Response to Treatment: Improving Discussed With: Quarter Doper, Patient Problem Specific Plan: Monitor Clinically Problem Text: Low grade fever. Neck pain and stiffness completely resolved. Day 12/13 on IV Acyclovir per Dr. Gillespie recommendation; IV acyclovir as inpatient from peripheral IV access. PT recommends d/c to rehab when medically stable; activity per PT. Herpetic meningitis commonly seen in immunocompromised pts; Pt has CLL not on me dication; HIV neg. CRP and ESR improving. 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 Ulloa following, will eval pt again tmrw. Erythema and swelling b/l upper eyelid noted. Photophobia while he was still able to open the left eye. Infectious disease and ophtho are consulted. Continue Trifluridine eye drop and Zargan OU as scheduled; Tobradex started per Dr. Ulloa's. Continue IV Acyclovir day 5/14. F/U CRP and CBC (4) Blepharitis of both eyes Status: Acute Discussed With: Quarter Doper Problem Specific Plan: Monitor Clinically, Repeat Labs Problem Text: With meibomian disease. Continue Minocycline PO. D/C warm compress and start cold compress 1/[address] Ulloa. Continue to mon itor the pt for signs and symptoms. CRP improving;continue to f/u with CRP and CBC (5) CLL (chronic lymphocytic leukemia) Status: Chronic Discussed With: Quarter Doper Problem Specific Plan: Repeat Labs Problem Text: PMH of CLL. S/P 3 chemotherapy cycle in 2014 in [place]. Not on medication at this time; no leukocytosis. Zoster encephalitis/meningitis as well as oral thrush questionable immunocompromised state. Peripheral smear morphologic findings unchanged from peripheral blood flow cytometry in July of 2018 which showed persistent involvement from CLL/SLL. Discussed with pt's outpt oncologist Dr. Godfrey today and recommends obtaining IgG lvl. 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 Continue Minocycline PO. D/C warm compr ess and start cold compress 1/[address] Ulloa. Continue to monitor the pt for signs and symptoms. CRP improving wnl now;continue to f/u with CRP and CBC (7) Oral candidiasis Status: Acute Response to Treatment: Improving Discussed With: Patient Problem Specific Plan: Monitor Clinically Problem Text: Patient complains or throat pain/sore throat. Oral thrush improving. Continue Clotrimozole PO 5XD. Continue to monitor (8) Hypertension Status: Chronic Response to Treatment: Stable Problem Text: Not on blood pressure medication as an outpatient. BP stable thi s morning . Continue vital signs as scheduled and will continue to monitor patient's symptoms. (9) Hyponatremia Status: Acute Response to Treatment: Stable, Improving Problem Specific Plan: Monitor Clinically, Repeat Labs Problem Text: Na 133 08/18. May be 2/2 diarrhea. Blood glucose stable. Asymptomatic except generalized weakness Serum osmolality 281. Urine Na and Urine osmolality ordered as serum osmo close to 280 thus r/o other causes of hypoonatremia; Pt euvolemic with urine osmo>100 thus hyponatremia may be d/t SIADH, tertiary adrenal insufficiency d/t CLL/meningitis, hemodilution, or elevated lipids/hyperlipidemia. Patient is tolerating PO diet well. Continue to monitor BMP. AM cortisol wnl. ACTH lvl wnl. Continue to monitor and f/u with BMP. GI panel ordered. (10) Hypokalemia Status: Resolved Response to Treatment: Controlled Problem Specific Plan: Monitor Clinically, Repeat Labs Problem Text: Likely 2/2 to diarrhea. K at 3.7 this morning. Mg lvl wnl. Continue 40meq PO BID. Patient tolerating PO regular diet well. Urine K wnl thus RTA 1 and 2 r/o. Continue to follow up with BMP. on 40meq PO BID. GI panel ordered. (11) Sacral pressure ulcer Status: Chronic Response to Treatment: Stable Discussed With: Patient Problem Text: Likely 2/2 prolonged sitting at home. Patient has been following wound care as an outpatient. Referral from [facility] Jun 2018. Wound care ordered. PT and OT ordered. Activity per PT/OT (12) Weakness generalized Status: Chronic Response to Treatment: Stable Discussed With: Patient Problem Specific Plan: Consult Specialist Problem Text: PT and OT recommends to con rehab after d/c. Activity per PT/OT (13) Paroxysmal atrial fibrillation Status: Chronic Response to Treatment: Controlled Discussed With: Patient Problem Specific Plan: Monitor Clinically Problem Text: Not in A. fib at the time of the examination. HR wnl. Continue Clopidogrel and Atorvastatin. Continue vital signs as scheduled (14) CVA (cerebral vascular accident) Status: Chronic Response to Treatment: Stable Problem Specific Plan: Monitor Clinically Problem Text: Hx of right thalamic stroke; denies sequalae from prior CVA. Hx of another TIA a week after the right thalamic stroke. Continue Lipitor and Clopidogreol (15) Epilepsy Status: Chronic Response to Treatment: Stable, Controlled Problem Specific Plan: Monitor Clinically Problem Text: Hx of seizure d/o. Continue Keppra. Seizure precaution (16) Diarrhea in adult patient Status: Acute Discussed With: Patient Problem Text: Multiple bowel movements with watery-soft stool. No melena or hematochezia reported. C. diff PCR ordered as pt on Minocycline. Start probiotics. Continue to monitor Plan/VTE VTE Prophylaxis Ordered?: Yes (SC lovenox) Plan IVF: Continue Diet: Continue Current Therapy: PT, OT Medications: Replete Electrolytes PO Diagnostics: Check Labs, Repeat Labs in AM, Obtain Cultures Family Medicine Attending Note: I was present on site to supervise VENKATESH Dacosta. We discussed the history and exam. I confirmed the fitzgerald elements during my [id number] encounter with the patient. We conferred on the assessment and plan; I agree with the note as documented. Mr. Mcrae's eye pain seems to improve. He is on any medication per Dr. David Ulloa. He is now alert and oriented. He is complaining of multiple watery bowel movements for the second day in a row. We can check him for C. difficile. We will continue to watch his renal function as acyclovir can cause a crystalluria; right now things are stable. His thrush seems to be improving on the clotrimazole troches. Per the patient's report no one has been removing his dentures no cleaned them since he's been here. I spoke to nursing and asked them to have his dentures out as much as possible because of the oral thrush. 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 Able to open left eye minimally. A&OX3. Tobradex started. Discussed with outpt oncologist Dr. Godfrey; no formal consultation; pt may f/u as outpt VS, I&O, 24H, Fishbone Vital Signs/I&O Vital Signs Date Time Temp Pulse Resp B/P (MAP) Pulse Ox O2 Delivery O2 Flow Rate FiO2 08/18/18 06:00 98.2 74 18 141/88 (105) 95 08/16/18 06:00 Room Air I&O- Last 24 Hours up to 6 AM 08/18/18 06:00 Intake Total 1110 ml Balance 1110 ml Laboratory Data 24H LABS Laboratory Tests 2 08/17/18 17:17: Differential Slide Review Report, Peripheral Blood Smear Path Consult PERIPHERAL SMEAR 08/18/18 06:18: Nucleated Red Blood Cells % (auto) 0.0, Anion Gap 7L, Glomerular Filtration Rate > 60.0, Blood Urea Nitrogen 11, Creatinine 0.82, Sodium Level 133L, Potassium Level 3.7, Chloride Level 99, Carbon Dioxide Level 27, Calcium Level 7.8L, C- Reactive Protein, Quantitative 4.59H CBC/BMP Laboratory Tests 08/17/18 17:17 08/18/18 06:18 Red Blood Count 4.12 L, Mean Corpuscular Volume 81.6, Mean Corpuscular Hemoglobin 26.9 L, Mean Corpuscular Hemoglobin Concent 33.0, Red Cell Distribution Width 14.6 H, Calcium Level 7.8 L Microbiology Microbiology 08/14/18 Blood Culture - Preliminary, Resulted No Growth after 72 hours. All specime... 08/14/18 Blood Culture - Preliminary, Resulted No Growth after 72 hours. All specime... 08/14/18 - Final, Complete Varicella Zoster Virus (Vzv) 08/14/18 Gram Stain - Final, Complete 08/14/18 CSF Culture - Final, Complete QUANG CA DO Aug 18, 2018 7:47 am Alban Viera MD Aug 19, 2018 2:50 pm
[2018-08-18] MEDS: ACYCLOVIR 1,000 MG in D5W 250 ML IV SCH ×2 (08:49→16:25)
[2018-08-18] MEDS: levETIRAcetam 250MG TABLET (KEPPRA) PO SCH ×2 (08:49→20:56)
[2018-08-18] MEDS: POTASSIUM CHLORIDE 10 MEQ SR TABLET PO SCH ×2 (08:50→20:57)
[2018-08-18] MEDS: CLOPIDOGREL 75 MG TAB PO SCH (08:50)
[2018-08-18] MEDS: VITAMIN D 1,000 INTERNATIONAL UNITS TABLET PO SCH (08:50)
[2018-08-18] MEDS: MINOCYCLINE 50 MG CAP PO SCH ×2 (08:50→20:56)
[2018-08-18] MEDS: OMEPRAZOLE 20 MG CAP PO SCH (08:50)
[2018-08-18] MEDS: ENOXAPARIN 30 MG/0.3 ML SYR (J1650) SC SCH (08:51)
[2018-08-18] MEDS: TOBRADEX OPHTH SUSP 2.5 ML OD SCH ×3 (08:51→20:58)
[2018-08-18] MEDS: LACTOBACILLUS ACIDOPHILUS CAP (BACID) PO SCH (13:01)
[2018-08-18 14:00] VITALS: BP 111/56
[2018-08-18] MEDS: MONTELUKAST 10 MG TAB PO SCH (20:56)
[2018-08-18] MEDS: ATORVASTATIN 20 MG TAB PO SCH (20:57)
[2018-08-18 21:30] VITALS: BP 120/68
[2018-08-19] MEDS: ACYCLOVIR 1,000 MG in D5W 250 ML IV SCH ×3 (00:34→16:08)
[2018-08-19] MEDS: CLOTRIMAZOLE 10 MG TROCHE PO SCH ×5 (05:30→21:15)
[2018-08-19] MEDS: GANCICLOVIR 0.15% OU SCH ×5 (05:31→21:15)
[2018-08-19 05:34] VITALS: BP 132/70
[2018-08-19 06:59] LABS: HEMATOCRIT 34.5 % (42.0-52.0); HEMOGLOBIN 11.5 g/dl (13.5-17.5); MEAN CORPUSCULAR HEMOGLOBIN 27.3 pg (27.0-33.0); MEAN CORPUSCULAR HGB CONC 33.3 g/dl (32.0-36.5); MEAN CORPUSCULAR VOLUME 81.8 fl (80.0-96.0); PLATELET COUNT, AUTOMATED 184 10^3/uL (150-450); RED BLOOD COUNT 4.22 10^6/uL (4.30-6.10); WHITE BLOOD COUNT 10.4 10^3/uL (4.0-10.0)
[2018-08-19 07:32] LABS: BLOOD UREA NITROGEN 12 MG/DL (7-18); C REACTIVE PROTEIN QUANTITATIV 3.75 MG/DL (0.00-0.30); CALCIUM LEVEL 8.3 MG/DL (8.8-10.2); CARBON DIOXIDE LEVEL 26 MEQ/L (21-32); CHLORIDE LEVEL 100 MEQ/L (98-107); CREATININE FOR GFR 0.86 MG/DL (0.70-1.30); GLOMERULAR FILTRATION RATE > 60.0 (>42); GLUCOSE, FASTING 93 MG/DL (70-100); POTASSIUM SERUM 4.3 MEQ/L (3.5-5.1); SODIUM LEVEL 135 MEQ/L (136-145)
[2018-08-19] MEDS: levETIRAcetam 250MG TABLET (KEPPRA) PO SCH ×2 (08:40→21:15)
[2018-08-19] MEDS: CLOPIDOGREL 75 MG TAB PO SCH (08:40)
[2018-08-19] MEDS: LACTOBACILLUS ACIDOPHILUS CAP (BACID) PO SCH ×2 (08:40→21:14)
[2018-08-19] MEDS: ENOXAPARIN 30 MG/0.3 ML SYR (J1650) SC SCH (08:40)
[2018-08-19] MEDS: MINOCYCLINE 50 MG CAP PO SCH (08:41)
[2018-08-19] MEDS: OMEPRAZOLE 20 MG CAP PO SCH (08:41)
[2018-08-19] MEDS: VITAMIN D 1,000 INTERNATIONAL UNITS TABLET PO SCH (08:41)
[2018-08-19] MEDS: POTASSIUM CHLORIDE 10 MEQ SR TABLET PO SCH (08:42)
[2018-08-19] MEDS: TOBRADEX OPHTH SUSP 2.5 ML OD SCH ×3 (08:42→21:15)
--- NOTE | 2018-08-19 11:14 | IPNPDOC ---
Subjective Date Seen The patient was seen on 08/19/18. Subjective Chief Complaint/HPI Patient is examined while he was sitting on the chair. He states that he is feeling good. Denies any neck pain, neck stiffness, headache, nausea, vomiting, fever, chills, or abdominal pain. States that he only had one watery-soft bowel movements yesterday. Stated that his weakness is improving. He can open his left eye more but feels that his eyes are still swollen. Denies any eye or eyelid pain. Reports seeing haziness in bilateral eyes General: Denies: Chills, Night Sweats Constitutional: Denies: Chills, Fever, Night Sweats Eyes: Reports: Vision change (visual haziness b/l), Eyelid inflammation, Redness (Moderate erythema in left upper eyelid, forehead, and glabella); Denies: Pain ENT: Denies: Head Aches, Dysphagia Skin: Reports: Rash, Lesions Pulmonary: Denies: Dyspnea Cardiovascular: Denies: Chest Pain, Palpitations Gastrointestinal: Denies: Nausea, Vomiting, Abdominal Pain, Constipation Musculoskeletal: Denies: Neck Pain Neurological: Denies: Change in speech, Confusion Psych: Reports: Mood Normal Objective Physical Examination General Exam: Positive: Alert, Cooperative, No Acute Distress Eye Exam: Positive: Conjunctiva & lids normal (Left eye mildly open with moderate erythema and mod-severe swelling; crust noted. Right eye mild swelling), EOMI (On the right eye only; Unable to assess left eye EOM as it is mildly open), Other Eye Symptoms; Negative: Sclera icteric ENT Exam: Positive: Mucous membr. moist/pink, Tongue Midline, Nares Patent, Other ENT (Oral thrush improving) Neck Exam: Positive: Supple; Negative: JVD Chest Exam: Positive: Clear to auscultation, Normal air movement; Negative: Rales, Rhonchi, Wheezing Heart Exam: Positive: Rate Normal, Regular Rhythm, Normal S1, Normal S2; Negative: Murmurs Abdomen Exam: Positive: Normal bowel sounds, Soft; Negative: Tenderness Skin Exam: Positive: Nl turgor and temperature, Rash (Erythema in bilateral eye lids, periorbital area, and glabella ), Lesion (Crusted lesions noted on left side of forehead. erythema noted in glabella area) Neuro Exam: Positive: Normal Speech; Negative: Strength at 5/5 X4 ext (Strength+4/5 in right lower extremity. +5/5 in the other extremities), Cranial Nerves 3-12 NL (Unable to assess left eye EOM as it is mildly open only) Psych Exam: Positive: Mental status NL, Mood NL, Oriented x 3, Other (Majority memory appears grossly intact, able to carry conversation); Negative: Anxiety Assessment /Plan Problems (1) Zoster encephalitis Status: Acute Response to Treatment: Improving Discussed With: Director Hair Problem Specific Plan: Monitor Clinically, Repeat Labs Problem Text: Low grade fever resolved as of 08/17. Encephalopathy resolved;A&OX3, normal conversation. Day 01/13 on IV Acyclovir per Dr. Gillespie recommendation until 08/28/18; IV acyclovir from peripheral IV line. PT recommends d/c to rehab when medically stable; activity per PT. 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 Discussed with Pt's oncologist Dr. Godfrey; pt s/p 3 chemo treatment in 2014. f/u as outpt HIV screen neg. CRP cont to improve. F/u on CRP and CBC. Continue to monitor the pt. (2) Zoster meningitis Status: Acute Response to Treatment: Improving Discussed With: Director Hair, Patient Problem Specific Plan: Monitor Clinically Problem Text: Low grade fever. Neck pain and stiffness completely resolved. Day 01/13 on IV Acyclovir per Dr. Gillespie recommendation; IV acyclovir as inpatient from peripheral IV access until 08/28/18. PT recommends d/c to rehab when medically stable; activity per PT. 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 CRP improving. continue to f/u on CRP, CBC, and vital signs as scheduled (3) Herpes zoster ophthalmicus of left eye Status: Acute Response to Treatment: Improving Discussed With: Director Hair, Patient Problem Specific Plan: Monitor Clinically Problem Text: With new-onset right sided swelling and eye pain starting 08/16; haziness right eye vision with blurred left eye vision; may be 2/2 herpes ophthamicus; Dr. Ulloa following. Erythema and swelling b/l upper eyelid improving. Visual hazziness b/l eyes. Infectious disease and ophtho are consult ed. Continue Trifluridine eye drop, Zargan OU, and Tobradex. Continue IV Acyclovir day 01/13. F/U CRP and CBC (4) Blepharitis of both eyes Status: Acute Discussed With: Director Hair Problem Specific Plan: Monitor Clinically, Repeat Labs Problem Text: With meibomian disease. Continue Minocycline PO. D/C warm compress and start cold compress 1/[address] Ulloa. Continue to maik tor the pt for signs and symptoms. CRP improving;continue to f/u with CRP and CBC (5) CLL (chronic lymphocytic leukemia) Status: Chronic Discussed With: Director Hair Problem Specific Plan: Repeat Labs Problem Text: PMH of CLL. S/P 3 chemotherapy cycle in 2014 in [place]. Not on medication at this time; no leukocytosis. Zoster encephalitis/meningitis as well as oral thrush questionable immunocompromised state. Peripheral smear morphologic findings unchanged from peripheral blood flow cytometry in July of 2018 which showed persistent involvement from CLL/SLL. Discussed with pt's outpt oncologist Dr. Godfrey and recommended obtaining IgG lvl. Plan to f/u oncology outpt when stable for d/c (6) Oral candidiasis Status: Acute Response to Treatment: Improving Discussed With: Patient Problem Specific Plan: Monitor Clinically Problem Text: Patient complains or throat pain/sore throat. Oral thrush continues to improve. Continue Clotrimozole PO 5XD. Continue to monitor (7) Hypertension Status: Chronic Response to Treatment: Stable Problem Text: Not on blood pressure medication as an outpatient. BP stable this morning . Continue vital signs as scheduled and will continue to monitor patient's symptoms. (8) Hyponatremia Status: Acute Response to Treatment: Stable, Improving Problem Specific Plan: Monitor Clinically, Repeat Labs Problem Text: Na 135 1/18. May be 2/2 to GI loss Blood glucose stable. Continue to monitor BMP. AM cortisol wnl. ACTH lvl wnl. Continue to monitor and f/u with BMP. Serum osmolality 281. Urine Na and Urine osmolality ordered as serum osmo close to 280 thus r/o other causes of hypoonatremia; Pt euvolemic with urine osmo>100 thus hyponatremia may be d/t SIADH, tertiary adrenal insufficiency d/t CLL/meningitis, hemodilution, or elevated lipids/hyperlipidemia. Patient is tolerating PO diet well. (9) Hypokalemia Status: Resolved Response to Treatment: Improving, Controlled Problem Specific Plan: Monitor Clinically, Repeat Labs Problem Text: Likely 2/2 to GI loss. K at 4.3 this morning. Mg lvl wnl. Switch to KCl 40meq PO. Patient tolerating PO regular diet well. Urine K wnl thus RTA 1 and 2 r/o. Continue to follow up with BMP. C diff pnel dc as pt only had one bowel movement today (10) Sacral pressure ulcer Status: Chronic Response to Treatment: Stable Discussed With: Patient Problem Text: Likely 2/2 prolonged sitting at home. Patient has been following wound care as an outpatient. Referral from [facility] Jun 2018. Wound care ordered. PT and OT ordered. Activity per PT/OT (11) Weakness generalized Status: Chronic Response to Treatment: Improving Discussed With: Patient Problem Specific Plan: Consult Specialist Problem Text: PT and OT recommends to con rehab after d/c. Activity per PT/OT (12) Paroxysmal atrial fibrillation Status: Chronic Response to Treatment: Controlled Discussed With: Patient Problem Specific Plan: Monitor Clinically Problem Text: Not in A. fib at the time of the examination. HR wnl. Continue Clopidogrel and Atorvastatin. Continue vital signs as scheduled (13) CVA (cerebral vascular accident) Status: Chronic Response to Treatment: Stable Problem Specific Plan: Monitor Clinically Problem Text: Hx of right thalamic stroke; denies sequalae from prior CVA. Hx of another TIA a week after the right thalamic stroke. Continue Lipitor and Lilliana pidogreol (14) Epilepsy Status: Chronic Response to Treatment: Stable, Controlled Problem Specific Plan: Monitor Clinically Problem Text: Hx of seizure d/o. Continue Keppra. Seizure precaution (15) Diarrhea in adult patient Status: Acute Response to Treatment: Improving, Controlled Discussed With: Patient Problem Text: 1 watery-soft stool today. No melena or hematochezia reported. D/C C. diff PCR as only 1 bowel movement today. Cont probiotics. Continue to monitor Plan/VTE VTE Prophylaxis Ordered?: Yes (SC lovenox) Plan IVF: Continue Diet: Continue Current Therapy: PT, OT Medications: Replete Electrolytes PO Diagnostics: Check Labs, Repeat Labs in AM, Obtain Cultures [facility] Attending Note: I was present on site to supervise VENKATESH Dacosta. We discussed the history and exam. I confirmed the fitzgerald elements during my [id number] encounter with the patient. We conferred on the assessment and plan; I agree with the note as documented. He continues to make slow improvement. Since he is not having jimmy diarrhea anymore we will discontinue the order for C. difficile evaluation. We'll continue to monitor his renal function carefully. 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 Day 01/13 acyclovir. Hyponatremia and CRP improving VS, I&O, 24H, Fishbone Vital Signs/I&O Vital Signs Date Time Temp Pulse Resp B/P (MAP) Pulse Ox O2 Delivery O2 Flow Rate FiO2 08/19/18 05:34 97.1 72 20 132/70 (90) 100 Room Air I&O- Last 24 Hours up to 6 AM 08/19/18 06:00 Intake Total 1745 ml Output Total 1075 ml Balance 670 ml Laboratory Data 24H LABS Laboratory Tests 2 08/18/18 13:46: Immunoglobulin G 388L 08/19/18 06:34: Nucleated Red Blood Cells % (auto) 0.0, Anion Gap 9, Glomerular Filtration Rate > 60.0, Blood Urea Nitrogen 12, Creatinine 0.86, Sodium Level 135L, Potassium Level 4.3, Chloride Level 100, Carbon Dioxide Level 26, Calcium Level 8.3L, C- Reactive Protein, Quantitative 3.75H CBC/BMP Laboratory Tests 08/19/18 06:34 Red Blood Count 4.22 L, Mean Corpuscular Volume 81.8, Mean Corpuscular Hemoglobin 27.3, Mean Corpuscular Hemoglobin Concent 33.3, Red Cell Distribution Width 15.0 H, Calcium Level 8.3 L Microbiology Microbiology 08/14/18 Blood Culture - Final, Complete NO GROWTH AFTER 5 DAYS 08/14/18 Blood Culture - Final, Complete NO GROWTH AFTER 5 DAYS 08/14/18 - Final, Complete Varicella Zoster Virus (Vzv) 08/14/18 Gram Stain - Final, Complete 08/14/18 CSF Culture - Final, Complete QUANG CA DO Aug 19, 2018 11:14 Alban Viera MD Aug 20, 2018 17:51
--- NOTE | 2018-08-19 11:25 | IPN ---
DATE: 08/18/2018 Patient was seen at dinnertime. He was in a good mood. He had a friend visiting. He denies any headache, neck stiffness. No nausea, vomiting or diarrhea. He was not confused. He has been afebrile for the past 48 hours. He has some eye blurriness on the left side but denies any pain. On physical exam, heart normal S1, S2. No murmurs. Lungs are clear. No wheezes or rhonchi. Abdomen soft, nontender. No visceromegaly. Extremities: No clubbing, cyanosis or edema. Onychomycosis times 10. Left forehead and eye has erythema with healing of these lesions with eschars. There is still swelling of the left eye, which is mostly shut but he is able now to open it. Conjunctiva is erythematous as well. Lesions extend to the bridge of the nose. All lesions are on the left side of the forehead to the occiput. Neurologic exam: Alert and oriented times three. Motor strength is normal. Labs: White count is 9.8, hemoglobin 11.1, hematocrit 33.6, platelets 154. Sodium 133, potassium 3.7, chloride 99, bicarbonate 27, BUN 11, creatinine 0.82, glucose 91, calcium 7.8. CRP 4.59, down from 11.5. IMPRESSION: 1. Herpes zoster ophthalmicus with encephalitis. Patient doing well, afebrile. Confusion resolved. Lesions are healing. Patient tolerating IV acyclovir 1 gram every 8 hours. 2. Chronic blepharitis and Meibomian gland disease. Recommendation by Dr. Ulloa was to continue on minocycline 100 mg daily. PLAN: Continue IV acyclovir. End of therapy will be 08/28/2018. Patient will need care home placement or acute rehab as he is not able to do home IV antiviral therapy.
[2018-08-19 14:48] VITALS: BP 127/75
[2018-08-19] MEDS: MONTELUKAST 10 MG TAB PO SCH (21:15)
[2018-08-19] MEDS: ATORVASTATIN 20 MG TAB PO SCH (21:15)
[2018-08-19 22:00] VITALS: BP 128/74
[2018-08-20] MEDS: ACYCLOVIR 1,000 MG in D5W 250 ML IV SCH ×3 (00:32→16:13)
[2018-08-20] MEDS: GANCICLOVIR 0.15% OU SCH ×5 (05:33→20:28)
[2018-08-20] MEDS: CLOTRIMAZOLE 10 MG TROCHE PO SCH ×5 (05:33→20:29)
[2018-08-20 06:00] VITALS: BP 134/75
[2018-08-20 06:33] LABS: HEMATOCRIT 37.2 % (42.0-52.0); HEMOGLOBIN 12.2 g/dl (13.5-17.5); MEAN CORPUSCULAR HEMOGLOBIN 27.1 pg (27.0-33.0); MEAN CORPUSCULAR HGB CONC 32.8 g/dl (32.0-36.5); MEAN CORPUSCULAR VOLUME 82.7 fl (80.0-96.0); PLATELET COUNT, AUTOMATED 192 10^3/uL (150-450); WHITE BLOOD COUNT 12.4 10^3/uL (4.0-10.0)
--- NOTE | 2018-08-20 06:51 | IPN ---
DATE: 08/19/2018 Mr. Mcrae is sitting in a chair eating his muffin. He is in a very good mood. He denies any complaint. No nausea, vomiting or diarrhea today. Yesterday, there was documented seven bowel movements during the day, but today he only had one which was soft. He has no abdominal pain. No fever or chills. No headache or neck stiffness. He is wondering what the plan would be to finish his treatment. He does not want to go to the [facility] or to [facility] ([facility] On physical exam, temperature is 97.7, pulse 86, respirations 20, blood pressure 127/75, oxygen sat 98% on room air. Heart: Normal S1 and S2 with no murmurs appreciated. Lungs are clear. No wheezes, rales or rhonchi. Abdomen: Obese, soft, nontender. Extremities: Trace edema with venous ulcerations especially over the left anterior alafro area measuring about 1 cm and slightly tender to touch. Skin: Varicella zoster lesions healing with dry scabs, no oozing. Left eye slightly more open with congenital erythema. Oropharynx clear, no lesions. Ears: No lesions. Labs: White count 10.4, hemoglobin 11.5, hematocrit 34.5, platelets 184. Sodium 135, potassium 4.3, chloride 100, bicarb 26, BUN 12, creatinine 0.86, glucose 93, calcium 8.3, CRP 3.75 down from 11.5. IMPRESSION: 1. Varicella-zoster virus (VZV) herpes zoster ophthalmicus with encephalitis. On IV acyclovir, tolerating well without kidney toxicity. He is currently day number day 6 of therapy out of 14. 2. Chronic blepharitis with Meibomian disease. On minocycline. The patient is having diarrhea and therefore antibiotics will be discontinued. There is no evidence of superimposed infection at this point. Could use topical antibiotics if needed. 3. Diarrhea. Discontinue by mouth minocycline and start probiotics twice a day. If diarrhea worsens, then would order stool for Clostridium difficile. PLAN: IV acyclovir 1 gram every 8 hours, end of treatment will be on August 28. Continue probiotics twice a day. Consider acute rehab for one week until end of therapy, the patient will not be able to go home with IV antibiotics.
[2018-08-20 07:04] LABS: BLOOD UREA NITROGEN 12 MG/DL (7-18); C REACTIVE PROTEIN QUANTITATIV 2.84 MG/DL (0.00-0.30); CALCIUM LEVEL 8.3 MG/DL (8.8-10.2); CARBON DIOXIDE LEVEL 23 MEQ/L (21-32); CHLORIDE LEVEL 100 MEQ/L (98-107); CREATININE FOR GFR 0.91 MG/DL (0.70-1.30); GLOMERULAR FILTRATION RATE > 60.0 (>42); GLUCOSE, FASTING 108 MG/DL (70-100); POTASSIUM SERUM 4.3 MEQ/L (3.5-5.1); SODIUM LEVEL 131 MEQ/L (136-145)
[2018-08-20] MEDS: TOBRADEX OPHTH SUSP 2.5 ML OD SCH ×3 (09:08→20:28)
[2018-08-20] MEDS: ENOXAPARIN 30 MG/0.3 ML SYR (J1650) SC SCH (09:08)
[2018-08-20] MEDS: POTASSIUM CHLORIDE 10 MEQ SR TABLET PO SCH (09:10)
[2018-08-20] MEDS: OMEPRAZOLE 20 MG CAP PO SCH (09:11)
[2018-08-20] MEDS: levETIRAcetam 250MG TABLET (KEPPRA) PO SCH ×2 (09:11→20:28)
[2018-08-20] MEDS: LACTOBACILLUS ACIDOPHILUS CAP (BACID) PO SCH ×2 (09:11→20:29)
[2018-08-20] MEDS: VITAMIN D 1,000 INTERNATIONAL UNITS TABLET PO SCH (09:11)
[2018-08-20] MEDS: CLOPIDOGREL 75 MG TAB PO SCH (09:11)
--- NOTE | 2018-08-20 10:14 | CR ---
DATE OF CONSULTATION: 08/19/2018 REASON FOR REFERRAL: CLL diagnosed in 2012, previously on followup at [facility] with Dr. Mcmanus. Treated with rituximab/ bendamustine chemotherapy from August 2014 to October 2014. The patient did not complete six cycles because of "spinal stenosis requiring surgery and a prolonged recovery." HISTORY OF PRESENT ILLNESS: Mr. Mcrae is a 77-year-old man who was diagnosed with CLL in 2012 and was followed up at [facility] by Dr. Mcmanus. His records indicate that he received treatment in August 2014 to October 2014. He could not receive more than three cycles, as he had spinal stenosis, which required surgery and prolonged recovery. He has had somewhat of a remission from his CLL since that time. He is currently admitted to [facility] for varicella meningitis. Hematology was consulted for his history of CLL. He is currently on Acyclovir intravenously. He reports that since admission he has been feeling better. His most recent CBC showed a white count of 10.4. He had mild anemia with a hemoglobin of 11.5. Earlier CBC from 5 days ago showed normal lymphocyte differential count, as well as a normal neutrophil count. ALLERGIES: No known drug allergies. CURRENT MEDICATIONS: - tobramycin ophthalmic suspension - clotrimazole - minocycline - atorvastatin - montelukast - acyclovir - clopidogrel - Levisticum - omeprazole - vitamin D - Lovenox PHYSICAL EXAMINATION: He was seated comfortably on the chair and not in distress. He had dry lesions on the left side of his forehead. He could not open his left eye. No lesions elsewhere. No palpable cervical nodes. LUNGS: Clear. No rales, rhonchi or wheeze. ABDOMEN: Soft, nontender. No guarding. EXTREMITIES: No calf swelling. No calf tenderness. IMPRESSION AND PLAN: Mr. Mcrae is a 77-year-old man with history of CLL currently in remission. He is prersently on treatment for varicella meningitis and cutaneous zoster/shingles infection. No additional hematological treatment indicated at this time. Continue antiviral medication. The patient has a followup appointment to see me on 08/30/2018. Thank you very much for informing me of his admission.
--- NOTE | 2018-08-20 15:06 | IPNPDOC ---
Subjective Date Seen The patient was seen on 08/20/18. Subjective Chief Complaint/HPI Pt is examined at bedside. He reports that he is feeling a lot better. Denies eye pain, headache, neck stiffness, neck pain, fever, or chills. He stated that he feels that he can open his left eyes more, and that the visual haziness in bilateral eyes are have resolved. Denies any eyelid/eye pain and sore throat resolved. He reports that he had one loose bowel movement yesterday but it was a lot less watery compared to the day before. Denies any chest pain, nausea, vomiting, abdominal pain, or SOB General: Denies: Chills Constitutional: Denies: Chills, Fever Eyes: Reports: Eyelid inflammation, Redness; Denies: Pain, Vision change ENT: Denies: Head Aches, Dysphagia Skin: Reports: Rash Pulmonary: Denies: Dyspnea, Pleuritic Chest Pain Cardiovascular: Denies: Chest Pain, Palpitations Gastrointestinal: Denies: Nausea, Vomiting, Abdominal Pain, Constipation Musculoskeletal: Reports: Other Symptoms (Denies neck stiffness); Denies: Neck Pain Neurological: Denies: Confusion Psych: Reports: Mood Normal, Memory Issues Objective Physical Examination General Exam: Positive: Alert, Cooperative, No Acute Distress Eye Exam: Positive: Conjunctiva & lids normal (Left eye minimally open with moderate erythema and mod-severe swelling; crust noted.), EOMI (On the right eye only; Unable to assess left eye EOM as it is minimally open), Other Eye Symptoms; Negative: Sclera icteric ENT Exam: Positive: Mucous membr. moist/pink, Tongue Midline, Nares Patent, Other ENT (Oral thrush continue to improve, nearly resolving) Neck Exam: Positive: Supple; Negative: JVD Chest Exam: Positive: Clear to auscultation, Normal air movement; Negative: Rales, Rhonchi, Wheezing Heart Exam: Positive: Rate Normal, Regular Rhythm, Normal S1, Normal S2; Negative: Murmurs Abdomen Exam: Positive: Normal bowel sounds, Soft; Negative: Tenderness Skin Exam: Positive: Nl turgor and temperature, Rash (Erythema in left upper eye lid, periorbital area, and glabella ), Lesion (Crusted lesions noted on left side of forehead. erythema noted in glabella area) Neuro Exam: Positive: Normal Speech; Negative: Strength at 5/5 X4 ext (Strength+4/5 in right lower extremity. +5/5 in the other extremities), Cranial Nerves 3-12 NL (Unable to assess left eye EOM as it is mildly open only; otherwise CN3-12 grossly intact) Psych Exam: Positive: Mental status NL, Mood NL, Oriented x 3, Other (Majority memory appears grossly intact, able to carry conversation); Negative: Anxiety Assessment /Plan Problems (1) Zoster encephalitis Status: Acute Response to Treatment: Improving Discussed With: Promotions Intern, Patient Problem Specific Plan: Monitor Clinically, Repeat Labs Problem Text: Low grade fever resolved as of 08/17. Encephalopathy resolved;A&OX3, normal conversation. Day 7 on IV Acyclovir per Dr. Gillespie recommendation until 08/28/18; IV acyclovir from peripheral IV line. PT recommends d/c to rehab when medically stable; activity per PT. 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 Discussed with Pt's oncologist Dr. Godfrey; pt s/p 3 chemo treatment in 2014. f/u as outpt HIV screen neg. CRP cont to improve. F/u on CRP and CBC. Continue to monitor the pt. (2) Zoster meningitis Status: Acute Response to Treatment: Improving Discussed With: Promotions Intern, Patient Problem Specific Plan: Monitor Clinically Problem Text: Low grade fever. Neck pain and stiffness completely resolved. Day 7 on IV Acyclovir per Dr. Gillespie recommendation; IV acyclovir as inpatient from peripheral IV access until 08/28/18. PT recommends d/c to rehab when medically stable; activity per PT. 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 CRP improving. 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 Ulloa following. Erythema and swelling b/l upper eyelid improving. Visual hazziness b/l eyes. Infectious disease and ophtho are consulted. Continue Trifluridine eye drop, Zargan OU, and Tobradex. Continue IV Acyclovir day 6/14. F/U CRP and CBC (4) Blepharitis of both eyes Status: Acute Discussed With: Promotions Intern, Patient Problem Specific Plan: Monitor Clinically, Repeat Labs Problem Text: With meibomian disease. Continue Minocycline PO amd cold compress per Dr. Ulloa. Continue to monitor the pt for signs and symptoms. CRP improving;continue to f/u with CRP and CBC (5) CLL (chronic lymphocytic leukemia) Status: Chronic Discussed With: Promotions Intern Problem Specific Plan: Repeat Labs Problem Text: PMH of CLL. S/P 3 chemotherapy cycle in 2014 in [place]. Not on medication at this time; no leukocytosis. Zoster encephalitis/meningitis as wel l as oral thrush questionable immunocompromised state. Peripheral smear morphologic findings unchanged from peripheral blood flow cytometry in July of 2018 which showed persistent involvement from CLL/SLL. Discussed with pt's outpt oncologist Dr. Godfrey and recommended obtaining IgG lvl. Plan to f/u oncology outpt when stable for d/c (6) Oral candidiasis Status: Acute Response to Treatment: Improving Discussed With: Patient Problem Specific Plan: Monitor Clinically Problem Text: Sore throat resolved. Oral thrush continues to improve. Continue Clotrimozole PO 5XD. Continue to monitor (7) Hypertension Status: Chronic Response to Treatment: Stable Problem Text: Not on blood pressure medication as an outpatient. BP stable this morning . Continue vital signs as scheduled and will continue to monitor patient's symptoms. (8) Hyponatremia Status: Acute Response to Treatment: Stable Problem Specific Plan: Monitor Clinically, Repeat Labs Problem Text: Na 131 08/20. May be 2/2 to GI loss. Blood glucose stable. Continue to monitor BMP. AM cortisol wnl. ACTH lvl wnl. Daily fluid restriction to 1L intake/24 hrs ordered. Continue to monitor and f/u with BMP. Serum osmolality 281. Urine Na and Urine osmolality ordered as serum osmo close to 280 thus r/o other causes of hyponatremia; Pt euvolemic with urine osmo>100 thus hyponatremia may be d/t SIADH, tertiary adrenal insufficiency d/t CLL/meningitis, hemodilution, or elevated lipids/hyperlipidemia. Patient is tolerating PO diet well. (9) Sacral pressure ulcer Status: Chronic Response to Treatment: Stable Problem Text: Likely 2/2 prolonged sitting at home. Patient has been following wound care as an outpatient. Referral from [facility] Jun 2018. Wound care ordered. PT and OT ordered. Activity per PT/OT (10) Weakness generalized Status: Chronic Response to Treatment: Stable Problem Specific Plan: Consult Specialist Problem Text: PT and OT recommends to con rehab after d/c. Activity per PT/OT (11) Paroxysmal atrial fibrillation Status: Chronic Response to Treatment: Controlled Problem Specific Plan: Monitor Clinically Problem Text: Not in A. fib at the time of the examination. HR wnl. Continue Clopidogrel and Atorvastatin. Continue vital signs as scheduled (12) CVA (cerebral vascular accident) Status: Chronic Response to Treatment: Stable Problem Specific Plan: Monitor Clinically Problem Text: Hx of right thalamic stroke; denies sequalae from prior CVA. Hx of another TIA a week after the right thalamic stroke. Continue Lipitor and Cl opidogreol (13) Epilepsy Status: Chronic Response to Treatment: Stable, Controlled Problem Specific Plan: Monitor Clinically Problem Text: Hx of seizure d/o. Continue Keppra. Seizure precaution (14) Diarrhea in adult patient Status: Acute Response to Treatment: Improving, Controlled Discussed With: Promotions Intern, Patient Problem Text: 1 soft formed stool compared to watery to soft stool from prior. Probiotics increased to BID. Continue to monitor Plan/VTE VTE Prophylaxis Ordered?: Yes (SC lovenox) Plan IVF: Discontinue Diet: Continue Current Therapy: PT, OT Medications: Bowel Regimen Diagnostics: Check Labs, Repeat Labs in AM Disposition Sore throat resolved, oral thrush almost resolved. IV acyclovir until 08/28. 1L/24hr fluid restriction as hyponatremia at 131 today VS, I&O, 24H, Fishbone Vital Signs/I&O Vital Signs Date Time Temp Pulse Resp B/P (MAP) Pulse Ox O2 Delivery O2 Flow Rate FiO2 08/20/18 06:00 97.0 84 19 134/75 (94) 95 Room Air I&O- Last 24 Hours up to 6 AM 08/20/18 06:00 Intake Total 1055 ml Output Total 300 ml Balance 755 ml Laboratory Data 24H LABS Laboratory Tests 2 08/20/18 06:16: Nucleated Red Blood Cells % (auto) 0.0, Anion Gap 8, Glomerular Filtration Rate > 60.0, Blood Urea Nitrogen 12, Creatinine 0.91, Sodium Level 131L, Potassium Level 4.3, Chloride Level 100, Carbon Dioxide Level 23, Calcium Level 8.3L, C- Reactive Protein, Quantitative 2.84H CBC/BMP Laboratory Tests 08/20/18 06:16 Red Blood Count 4.50, Mean Corpuscular Volume 82.7, Mean Corpuscular Hemoglobin 27.1, Mean Corpuscular Hemoglobin Concent 32.8, Red Cell Distribution Width 15.0 H, Calcium Level 8.3 L Microbiology Microbiology 08/14/18 Blood Culture - Final, Complete NO GROWTH AFTER 5 DAYS 08/14/18 Blood Culture - Final, Complete NO GROWTH AFTER 5 DAYS 08/14/18 - Final, Complete Varicella Zoster Virus (Vzv) 08/14/18 Gram Stain - Final, Complete 08/14/18 CSF Culture - Final, Complete GME ATTESTATION GME ATTESTATION My faculty preceptor for this patient encounter was physically present during the encounter and was fully available. All aspects of the patient interview, examination, medical decision making process, and medical care plan development were reviewed and approved by the faculty preceptor. The faculty preceptor is aware and concurs with the plan as stated in the body of this note and will attest to such by his/her cosignature. ATTENDING NOTE patient doing well. agree with findings and plan as documented by QUANG Stephens DO Aug 20, 2018 15:06 Aiden Velazquez MD Aug 21, 2018 16:27
[2018-08-20] MEDS: MONTELUKAST 10 MG TAB PO SCH (20:29)
[2018-08-20] MEDS: ATORVASTATIN 20 MG TAB PO SCH (20:30)
[2018-08-20 22:00] VITALS: BP 120/70
[2018-08-21] MEDS: ACYCLOVIR 1,000 MG in D5W 250 ML IV SCH ×3 (00:05→16:46)
[2018-08-21 06:00] VITALS: BP 146/84
[2018-08-21 06:06] LABS: MEAN CORPUSCULAR HEMOGLOBIN 26.6 pg (27.0-33.0); MEAN CORPUSCULAR HGB CONC 33.3 g/dl (32.0-36.5); MEAN CORPUSCULAR VOLUME 79.9 fl (80.0-96.0); PLATELET COUNT, AUTOMATED 242 10^3/uL (150-450); RED BLOOD COUNT 4.13 10^6/uL (4.30-6.10); WHITE BLOOD COUNT 12.6 10^3/uL (4.0-10.0)
[2018-08-21] MEDS: CLOTRIMAZOLE 10 MG TROCHE PO SCH ×3 (06:17→13:13)
[2018-08-21] MEDS: GANCICLOVIR 0.15% OU SCH ×5 (06:18→20:02)
[2018-08-21 06:21] LABS: BLOOD UREA NITROGEN 12 MG/DL (7-18); C REACTIVE PROTEIN QUANTITATIV 1.99 MG/DL (0.00-0.30); CARBON DIOXIDE LEVEL 27 MEQ/L (21-32); CHLORIDE LEVEL 102 MEQ/L (98-107); CREATININE FOR GFR 0.84 MG/DL (0.70-1.30); GLOMERULAR FILTRATION RATE > 60.0 (>42); GLUCOSE, FASTING 90 MG/DL (70-100); POTASSIUM SERUM 4.1 MEQ/L (3.5-5.1); SODIUM LEVEL 134 MEQ/L (136-145)
[2018-08-21] MEDS: VITAMIN D 1,000 INTERNATIONAL UNITS TABLET PO SCH (07:49)
[2018-08-21] MEDS: CLOPIDOGREL 75 MG TAB PO SCH (07:49)
[2018-08-21] MEDS: levETIRAcetam 250MG TABLET (KEPPRA) PO SCH ×2 (07:50→20:00)
[2018-08-21] MEDS: OMEPRAZOLE 20 MG CAP PO SCH (07:50)
[2018-08-21] MEDS: ENOXAPARIN 30 MG/0.3 ML SYR (J1650) SC SCH (07:50)
[2018-08-21] MEDS: LACTOBACILLUS ACIDOPHILUS CAP (BACID) PO SCH ×2 (07:50→20:00)
[2018-08-21] MEDS: POTASSIUM CHLORIDE 10 MEQ SR TABLET PO SCH (07:51)
[2018-08-21] MEDS: TOBRADEX OPHTH SUSP 2.5 ML OD SCH ×3 (07:51→20:02)
[2018-08-21 14:00] VITALS: BP 124/69
--- NOTE | 2018-08-21 16:35 | IPNPDOC ---
Subjective Date Seen The patient was seen on 08/21/18. Subjective Chief Complaint/HPI He feels fine Constitutional: Denies: Chills ENT: Denies: Head Aches Skin: Reports: Rash (extensive drying vesicular eruption leftforehead, eye ) Pulmonary: Denies: Dyspnea, Cough Cardiovascular: Denies: Chest Pain, Palpitations, Orthopnea Gastrointestinal: Denies: Nausea, Vomiting, Abdominal Pain Musculoskeletal: Denies: Neck Pain Neurological: Denies: Weakness, Numbness Objective Physical Examination General Exam: Positive: Alert, Cooperative, No Acute Distress Eye Exam: Positive: Conjunctiva & lids normal (Left eye minimally open with moderate erythema and mod-severe swelling; crust noted.), EOMI (On the right eye only; Unable to assess left eye EOM as it is minimally open), Other Eye Symp toms; Negative: Sclera icteric ENT Exam: Positive: Mucous membr. moist/pink, Tongue Midline, Nares Patent, Other ENT (Oral thrush seems to have resolved.) Neck Exam: Positive: Supple; Negative: JVD Chest Exam: Positive: Clear to auscultation, Normal air movement; Negative: Rales, Rhonchi, Wheezing Heart Exam: Positive: Rate Normal, Regular Rhythm, Normal S1, Normal S2; Negative: Murmurs Abdomen Exam: Positive: Normal bowel sounds, Soft; Negative: Tenderness Skin Exam: Positive: Nl turgor and temperature, Rash (Erythema in left upper eye lid, periorbital area, and glabella ), Lesion (Crusted lesions noted on left side of forehead. erythema noted in glabella area) Neuro Exam: Positive: Normal Speech; Negative: Strength at 5/5 X4 ext (Strength+4/5 in right lower extremity. +5/5 in the other extremities), Cranial Nerves 3-12 NL (Unable to assess left eye EOM as it is mildly open only; otherwise CN3-12 grossly intact) Psych Exam: Positive: Mental status NL, Mood NL, Oriented x 3, Other (Majority memory appears grossly intact, able to carry conversation); Negative: Anxiety Assessment /Plan Problems (1) Zoster encephalitis Status: Acute Response to Treatment: Improving Discussed With: Carton Stapler Problem Specific Plan: Monitor Clinically, Repeat Labs Problem Text: 08/21: no IV access. Will change to Famaciclovir 500 tid until IV can be established in am with PICC or see if Dr. Gillespie thinks we can change to po regimen instead. Low grade fever resolved as of 08/17. Encephalopathy resolved;A&OX3, normal conversation. Day 614 on IV Acyclovir per Dr. Gillespie recommendation until 08/28/18; IV acyclovir from peripheral IV line. PT recommends d/c to rehab when medically stable; activity per PT. 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 Discussed with Pt's oncologist Dr. Godfrey; pt s/p 3 chemo treatment in 2014. f/u as outpt HIV screen neg. CRP cont to improve. F/u on CRP and CBC. Continue to monitor the pt. (2) Zoster meningitis Status: Acute Response to Treatment: Improving Discussed With: Carton Stapler, Patient Problem Specific Plan: Monitor Clinically Problem Text: Low grade fever. Neck pain and stiffness completely resolved. Day 01/13 on IV Acyclovir per Dr. Gillespie recommendation; IV acyclovir as inpatient from peripheral IV access until 08/28/18. PT recommends d/c to rehab when medically stable; activity per PT. 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 CRP improving. 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 Ulloa following. Erythema and swelling b/l upper eyelid improving. Visual haziness b/l eyes. Infectious disease and ophtho are consulted. Continue Trifluridine eye drop, Zargan OU, and Tobradex. Continue IV Acyclovir day 614. F/U CRP and CBC (4) Blepharitis of both eyes Status: Acute Discussed With: Carton Stapler Problem Specific Plan: Monitor Clinically, Repeat Labs Problem Text: With meibomian disease. Continue Minocycline PO. D/C warm compress and start cold compress 1/[address] Ulloa. Continue to monitor the pt for signs and symptoms. CRP improving;continue to f/u with CRP and CBC (5) CLL (chronic lymphocytic leukemia) Status: Chronic Discussed With: Carton Stapler Problem Specific Plan: Repeat Labs Problem Text: PMH of CLL. S/P 3 chemotherapy cycle in 2014 in [place]. Not on medication at this time; no leukocytosis. Zoster encephalitis/meningitis as well as oral thrush questionable immunocompromised state. Peripheral smear morphologic findings unchanged from peripheral blood flow cytometry in July of 2018 which showed persistent involvement from CLL/SLL. Discussed with pt's outpt oncologist Dr. Godfrey and recommended obtaining IgG lvl. Plan to f/u oncology outpt when stable for d/c (6) Oral candidiasis Status: Acute Response to Treatment: Improving Discussed With: Patient Problem Specific Plan: Monitor Clinically Problem Text: 08/21: no symptoms. patient observed to swallow mycelex rather than allowing it to melt, nonetheless, the thrush seems to have resolved. Patient complains or throat pain/sore throat. Oral thrush continues to improve. Continue Clotrimozole PO 5XD. Continue to monitor (7) Hypertension Status: Chronic Response to Treatment: Stable Problem Text: Not on blood pressure medication as an outpatient. BP stable this morning . Continue vital signs as scheduled and will continue to monitor patient's symptoms. (8) Hyponatremia Status: Acute Response to Treatment: Stable, Improving Problem Specific Plan: Monitor Clinically, Repeat Labs Problem Text: 08/21 Na 134 Na 135 08/19. May be 2/2 to GI loss Blood glucose stable. Continue to monitor BMP. AM cortisol wnl. ACTH lvl wnl. Continue to monitor and f/u with BMP. Serum osmolality 281. Urine Na and Urine osmolality ordered as serum osmo close to 280 thus r/o other causes of hypoonatremia; Pt euvolemic with urine osmo>100 thus hyponatremia may be d/t SIADH, tertiary adrenal insufficiency d/t CLL/meningitis, hemodilution, or elevated lipids/hyperlipidemia. Patient is tolerating PO diet well. (9) Hypokalemia Status: Resolved Response to Treatment: Improving, Controlled Problem Specific Plan: Monitor Clinically, Repeat Labs Problem Text: Likely 2/2 to GI loss. K at 4.3 this morning. Mg lvl wnl. Switch to KCl 40meq PO. Patient tolerating PO regular diet well. Urine K wnl thus RTA 1 and 2 r/o. Continue to follow up with BMP. C diff pnel dc as pt only had one bowel movement today (10) Sacral pressure ulcer Status: Chronic Response to Treatment: Stable Discussed With: Patient Problem Text: Likely 2/2 prolonged sitting at home. Patient has been following wound care as an outpatient. Referral from [facility] Jun 2018. Wound care ordered. PT and OT ordered. Activity per PT/OT (11) Weakness generalized Status: Chronic Response to Treatment: Improving Discussed With: Patient Problem Specific Plan: Consult Specialist Problem Text: PT and OT recommends to con rehab after d/c. Activity per PT/OT (12) Paroxysmal atrial fibrillation Status: Chronic Response to Treatment: Controlled Discussed With: Patient Problem Specific Plan: Monitor Clinically Problem Text: Not in A. fib at the time of the examination. HR wnl. Continue Clopidogrel and Atorvastatin. Continue vital signs as scheduled (13) CVA (cerebral vascular accident) Status: Chronic Response to Treatment: Stable Problem Specific Plan: Monitor Clinically Problem Text: Hx of right thalamic stroke; denies sequalae from prior CVA. Hx of another TIA a week after the right thalamic stroke. Continue Lipitor and Clopidogreol (14) Epilepsy Status: Chronic Response to Treatment: Stable, Controlled Problem Specific Plan: Monitor Clinically Problem Text: Hx of seizure d/o. Continue Keppra. Seizure precaution (15) Diarrhea in adult patient Status: Acute Response to Treatment: Improving, Controlled Discussed With: Patient Problem Text: 1 watery-soft stool today. No melena or hematochezia reported. D/C C. diff PCR as only 1 bowel movement today. Cont probiotics. Continue to monitor (16) Lack of intravenous access Status: Acute Problem Specific Plan: Consult Specialist (Decide if continued IV therapy is imperative or if we have option to switch to PO. If IV med required then will request PICC for access.) Plan/VTE VTE Prophylaxis Ordered?: Yes (SC lovenox) Plan IVF: Discontinue Diet: Continue Current Therapy: PT, OT Medications: Bowel Regimen Diagnostics: Check Labs, Repeat Labs in AM VS, I&O, 24H, Fishbone Vital Signs/I&O Vital Signs Date Time Temp Pulse Resp B/P (MAP) Pulse Ox O2 Delivery O2 Flow Rate FiO2 08/21/18 14:00 97.0 88 19 124/69 (87) 95 Room Air I&O- Last 24 Hours up to 6 AM 08/21/18 06:00 Intake Total 1770 ml Output Total 300 ml Balance 1470 ml Laboratory Data 24H LABS Laboratory Tests 2 08/21/18 05:41: Nucleated Red Blood Cells % (auto) 0.0, Anion Gap 5L, Glomerular Filtration Rate > 60.0, Blood Urea Nitrogen 12, Creatinine 0.84, Sodium Level 134L, Potassium Level 4.1, Chloride Level 102, Carbon Dioxide Level 27, Calcium Level 8.0L, C- Reactive Protein, Quantitative 1.99H CBC/BMP Laboratory Tests 08/21/18 05:41 Red Blood Count 4.13 L, Mean Corpuscular Volume 79.9 L, Mean Corpuscular Hemoglobin 26.6 L, Mean Corpuscular Hemoglobin Concent 33.3, Red Cell Distribution Width 15.0 H, Calcium Level 8.0 L Microbiology Microbiology 08/14/18 Blood Culture - Final, Complete NO GROWTH AFTER 5 DAYS 08/14/18 Blood Culture - Final, Complete NO GROWTH AFTER 5 DAYS 08/14/18 - Final, Complete Varicella Zoster Virus (Vzv) 08/14/18 Gram Stain - Final, Complete 08/14/18 CSF Culture - Final, Complete Aiden Velazquez MD Aug 21, 2018 16:35
[2018-08-21] MEDS: FAMCICLOVIR 500 MG TAB PO SCH ×2 (18:10→20:00)
[2018-08-21] MEDS: ATORVASTATIN 20 MG TAB PO SCH (20:00)
[2018-08-21] MEDS: MONTELUKAST 10 MG TAB PO SCH (20:00)
[2018-08-21 22:00] VITALS: BP 137/78
[2018-08-22 06:00] VITALS: BP 162/97
[2018-08-22] MEDS: GANCICLOVIR 0.15% OU SCH ×5 (06:00→21:01)
[2018-08-22 06:44] LABS: C REACTIVE PROTEIN QUANTITATIV 1.71 MG/DL (0.00-0.30)
[2018-08-22 08:38] LABS: HEMATOCRIT 33.2 % (42.0-52.0); HEMOGLOBIN 10.8 g/dl (13.5-17.5); MEAN CORPUSCULAR HEMOGLOBIN 27.2 pg (27.0-33.0); MEAN CORPUSCULAR HGB CONC 32.5 g/dl (32.0-36.5); MEAN CORPUSCULAR VOLUME 83.6 fl (80.0-96.0); PLATELET COUNT, AUTOMATED 283 10^3/uL (150-450); RED BLOOD COUNT 3.97 10^6/uL (4.30-6.10); WHITE BLOOD COUNT 14.6 10^3/uL (4.0-10.0)
[2018-08-22 08:52] LABS: BLOOD UREA NITROGEN 15 MG/DL (7-18); CALCIUM LEVEL 8.4 MG/DL (8.8-10.2); CARBON DIOXIDE LEVEL 28 MEQ/L (21-32); CHLORIDE LEVEL 101 MEQ/L (98-107); CREATININE FOR GFR 1.04 MG/DL (0.70-1.30); GLOMERULAR FILTRATION RATE > 60.0 (>42); GLUCOSE, FASTING 92 MG/DL (70-100); POTASSIUM SERUM 4.6 MEQ/L (3.5-5.1); SODIUM LEVEL 135 MEQ/L (136-145)
--- NOTE | 2018-08-22 08:59 | IPNPDOC ---
Subjective Date Seen The patient was seen on 08/22/18. Subjective Chief Complaint/HPI Patient is examined while sitting on the exam room. He states that he is feeling good and is able to open his left eye a little more. He denies any fever, chills, headache, neck pain, neck stiffness, eye pain/eyelid pain, nausea, vomiting, or abdominal pain. He reports having one soft stool but it was not watery; pt stating that it is getting better General: Denies: Chills, Night Sweats Constitutional: Denies: Chills, Fever, Night Sweats Eyes: Reports: Eyelid inflammation, Redness; Denies: Pain ENT: Denies: Head Aches, Dysphagia Skin: Reports: Rash, Lesions Pulmonary: Denies: Dyspnea, Pleuritic Chest Pain Cardiovascular: Denies: Chest Pain, Palpitations Gastrointestinal: Denies: Nausea, Vomiting, Abdominal Pain, Constipation Musculoskeletal: Denies: Neck Pain Neurological: Reports: Weakness; Denies: Change in speech, Confusion Psych: Denies: Memory Issues Objective Physical Examination General Exam: Positive: Alert, Cooperative, No Acute Distress Eye Exam: Positive: Conjunctiva & lids normal (Left eye mildly to moderately open with moderate erythema and mod swelling; crust noted.), EOMI (On the right eye only; Unable to assess left eye EOM still as it is mildly-moderately open); Negative: Sclera icteric ENT Exam: Positive: Mucous membr. moist/pink, Tongue Midline, Nares Patent, Other ENT (Oral thrush resolved) Neck Exam: Positive: Supple; Negative: JVD Chest Exam: Positive: Clear to auscultation, Normal air movement; Negative: Rales, Rhonchi, Wheezing Heart Exam: Positive: Rate Normal, Regular Rhythm, Normal S1, Normal S2; Negative: Murmurs Abdomen Exam: Positive: Normal bowel sounds, Soft; Negative: Tenderness Skin Exam: Positive: Nl turgor and temperature, Rash (Erythema in left upper eye lid, periorbital area, and glabella ), Lesion (Crusted lesions noted on left side of forehead. erythema noted in glabella area) Neuro Exam: Positive: Normal Speech, Other (Strength+3/5 in right lower extremity. +5/5 in the other extremities); Negative: Strength at 5/5 X4 ext, Cranial Nerves 3-12 NL (Unable to assess left eye EOM as it is mildly-moderately open; otherwise CN3-12 grossly intact) Psych Exam: Positive: Mental status NL, Mood NL, Oriented x 3, Other (Majority memory appears grossly intact, able to carry conversation); Negative: Anxiety Assessment /Plan Assessment Agree with below. Switched to Valtrex per ID recommendations. Problems (1) Zoster encephalitis Status: Resolved Response to Treatment: Improving Discussed With: Hatchery Man Problem Specific Plan: Monitor Clinically, Repeat Labs Problem Text: 08/22 Continue PO Famacyclovir until Dr. Gillespie evaluation if pt may switch to PO regimen; if pt still needs IV antivirals, PICC line insertion will be ordered. Antiviral therapy until 08/28/18 to complete 14 days treatment in total. CRP continue to improve 08/21: no IV access. Will change to Famaciclovir 500 tid until IV can be established in am with PICC or see if Dr. Gillespie thinks we can change to po regimen instead. Low grade fever resolved as of 08/17. Encephalopathy resolved;A&OX3, normal conversation. PT recommends d/c to rehab when medically stable; activity per PT. 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 Discussed with Pt's oncologist Dr. Godfrey; pt s/p 3 chemo treatment in 2014. f/u as outpt HIV screen neg. F/u on CRP and CBC. Continue to monitor the pt. (2) Zoster meningitis Status: Acute Response to Treatment: Improving Discussed With: Hatchery Man, Patient Problem Specific Plan: Monitor Clinically, Repeat Labs Problem Text: Low grade fever resolved. Neck pain and stiffness completely resolved. Antiviral coverage for Zoster until 08/28/18 for 14 days in total per Dr. Gillespie recommendation; Received IV acyclovir as inpatient from peripheral IV access but IV access was lost. On PO Famciclovir now until re-eval by Dr. Gillespie; may continue PO antiviral or need PICC line insertion. PT recommends d/c to rehab when medically stable; activity per PT. 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 CRP improving. 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 Ulloa following. Erythema and swelling b/l upper eyelid improving. Infectious disease and ophtho are consulted. Continue Trifluridine eye drop, Zargan OU, and Tobradex. Currently on PO Famcyclovir as IV access was lost; Dr. Gillespie will re-evaluate if able to be on PO antiviral or PICC line is needed. F/U CRP and CBC (4) Blepharitis of both eyes Status: Acute Discussed With: Hatchery Man Problem Specific Plan: Monitor Clinically, Repeat Labs Problem Text: With meibomian disease. Continue Minocycline PO. Cold compress starting 08/[address] Ulloa. Continue to monitor the pt for signs and symptoms. CRP improving;continue to f/u with CRP and CBC (5) CLL (chronic lymphocytic leukemia) Status: Chronic Discussed With: Hatchery Man Problem Specific Plan: Repeat Labs Problem Text: PMH of CLL. S/P 3 chemotherapy cycle in [address] [place] Godfrey determined no medication needed at this time. Zoster encephalitis/meningitis as well as oral thrush questionable immunocompromised state. Leukocytosis. Peripheral smear morphologic findings unchanged from peripheral blood flow cytometry in July of 2018 which showed persistent involvement from CLL/SLL. Discussed with pt's outpt oncologist Dr. Godfrey and recommended obtaining IgG lvl. Plan to f/u oncology outpt when stable for d/c (6) Hypertension Status: Chronic Response to Treatment: Stable Problem Text: Not on blood pressure medication as an outpatient. BP elevated 162/97. One time dose of 5mg Amlodipine with holding parameter ordered; instruct ed to re-take BP before giving Amlodipine. Continue vital signs as scheduled and will continue to monitor patient's symptoms. (7) Hyponatremia Status: Resolved Response to Treatment: Stable, Improving Problem Specific Plan: Monitor Clinically, Repeat Labs Problem Text: 08/22 Na 135. Continue to f/u with BMP and monitor the pt. On fluid intake restriction 1L/24 hrs. 08/21 Na 134 Na 135 08/19. May be 2/2 to GI loss Blood glucose stable. Continue to monitor BMP. AM cortisol wnl. ACTH lvl wnl. Continue to monitor and f/u with BMP. Serum osmolality 281. Urine Na and Urine osmolality ordered as serum osmo close to 280 thus r/o other causes of hypoonatremia; Pt euvolemic with urine osmo>100 thus hyponatremia may be d/t SIADH, tertiary adrenal insufficiency d/t CLL/meningitis, hemodilution, or elevated lipids/hyperlipidemia. Patient is tolerating PO diet well. (8) Hypokalemia Status: Resolved Response to Treatment: Improving, Controlled Problem Specific Plan: Monitor Clinically, Repeat Labs Problem Text: Likely 2/2 to GI loss; watery bowel movement resolved currently soft stool. K at 4.6 this morning. Mg lvl wnl. KCl 40meq PO daily d/c. Patient tolerating PO regular diet well. Urine K wnl thus RTA 1 and 2 r/o. Continue to follow up with BMP. (9) Sacral pressure ulcer Status: Chronic Response to Treatment: Stable Discussed With: Patient Problem Text: Likely 2/2 prolonged sitting at home. Patient has been following wound care as an outpatient. Referral from [facility] Jun 2018. Wound care ordered. PT and OT ordered. Activity per PT/OT (10) Weakness generalized Status: Chronic Response to Treatment: Improving Discussed With: Patient Problem Specific Plan: Consult Specialist Problem Text: PT and OT recommends to con rehab after d/c. Activity per PT/OT (11) Paroxysmal atrial fibrillation Status: Chronic Response to Treatment: Controlled Discussed With: Patient Problem Specific Plan: Monitor Clinically Problem Text: Not in A. fib at the time of the examination. HR wnl. Continue Clopidogrel and Atorvastatin. Continue vital signs as scheduled (12) CVA (cerebral vascular accident) Status: Chronic Response to Treatment: Stable Problem Specific Plan: Monitor Clinically Problem Text: Hx of right thalamic stroke; denies sequalae from prior CVA. Hx of another TIA a week after the right thalamic stroke. Continue Lipitor and Clopidogreol (13) Epilepsy Status: Chronic Response to Treatment: Stable, Controlled Problem Specific Plan: Monitor Clinically Problem Text: Hx of seizure d/o. Continue Keppra. Seizure precaution (14) Diarrhea in adult patient Status: Resolved Response to Treatment: Improving, Controlled Discussed With: Patient Problem Text: 1 soft stool yesterday. No melena or hematochezia reported. D/C C . diff PCR. Cont probiotics. Continue to monitor (15) Lack of intravenous access Status: Acute Problem Specific Plan: Consult Specialist (ID will re-evaluate pt to see if PO anti-viral is sufficient; otherwise PICC line is needed) Plan/VTE VTE Prophylaxis Ordered?: Yes (SC lovenox) Plan IVF: Discontinue Diet: Continue Current Therapy: PT, OT Medications: Change to PO, Bowel Regimen Diagnostics: Check Labs, Repeat Labs in AM Disposition On PO antiviral now; antiviral coverage until 08/28 for 14 days in total. Re- evaluation by ID if PO anti-viral will be sufficient or a PICC line is needed. KCl d/c as hypokalemia resolved K 4.6. VS, I&O, 24H, Fishbone Vital Signs/I&O Vital Signs Date Time Temp Pulse Resp B/P (MAP) Pulse Ox O2 Delivery O2 Flow Rate FiO2 08/22/18 06:00 97.4 77 18 162/97 (118) 100 Room Air I&O- Last 24 Hours up to 6 AM 08/22/18 06:00 Intake Total 510 ml Balance 510 ml Laboratory Data 24H LABS Laboratory Tests 2 08/22/18 05:42: Nucleated Red Blood Cells % (auto) 0.0, Anion Gap 6L, Glomerular Filtration Rate > 60.0, Blood Urea Nitrogen 15, Creatinine 1.04, Sodium Level 135L, Potassium Level 4.6, Chloride Level 101, Carbon Dioxide Level 28, Calcium Level 8.4L, C- Reactive Protein, Quantitative 1.71H CBC/BMP Laboratory Tests 08/22/18 05:42 Red Blood Count 3.97 L, Mean Corpuscular Volume 83.6, Mean Corpuscular Hemoglobin 27.2, Mean Corpuscular Hemoglobin Concent 32.5, Red Cell Distribution Width 15.3 H, Calcium Level 8.4 L Microbiology Microbiology 08/14/18 Blood Culture - Final, Complete NO GROWTH AFTER 5 DAYS 08/14/18 Blood Culture - Final, Complete NO GROWTH AFTER 5 DAYS 08/14/18 - Final, Complete Varicella Zoster Virus (Vzv) 08/14/18 Gram Stain - Final, Resulted 08/14/18 CSF Culture - Preliminary, Resulted QUANG CA DO Aug 22, 2018 08:59 MARLENY HOPE DO Aug 23, 2018 19:16
[2018-08-22] MEDS: ACYCLOVIR 1,000 MG in D5W 250 ML IV SCH ×2 (09:43→16:00)
[2018-08-22] MEDS: OMEPRAZOLE 20 MG CAP PO SCH (09:47)
[2018-08-22] MEDS: levETIRAcetam 250MG TABLET (KEPPRA) PO SCH ×2 (09:48→21:01)
[2018-08-22] MEDS: VITAMIN D 1,000 INTERNATIONAL UNITS TABLET PO SCH (09:48)
[2018-08-22] MEDS: LACTOBACILLUS ACIDOPHILUS CAP (BACID) PO SCH ×2 (09:49→21:01)
[2018-08-22] MEDS: FAMCICLOVIR 500 MG TAB PO SCH ×2 (09:49→16:13)
[2018-08-22] MEDS: CLOPIDOGREL 75 MG TAB PO SCH (09:49)
[2018-08-22] MEDS: TOBRADEX OPHTH SUSP 2.5 ML OD SCH ×3 (09:50→21:02)
[2018-08-22] MEDS: ENOXAPARIN 30 MG/0.3 ML SYR (J1650) SC SCH (09:50)
[2018-08-22] MEDS: POTASSIUM CHLORIDE 10 MEQ SR TABLET PO SCH (09:51)
[2018-08-22] MEDS ORDERED: amLODIPine 5 MG TAB PO ONE (12:00)
[2018-08-22 12:41] VITALS: BP 138/77
[2018-08-22 14:00] VITALS: BP 136/96
[2018-08-22] MEDS: MONTELUKAST 10 MG TAB PO SCH (21:01)
[2018-08-22] MEDS: ATORVASTATIN 20 MG TAB PO SCH (21:01)
[2018-08-22] MEDS: valACYclovir HCL 500 MG TAB PO SCH (21:01)
[2018-08-22 22:00] VITALS: BP 130/75
[2018-08-23] MEDS: ACETAMINOPHEN 650MG ER TAB (TYLENOL ARTHRITIS) PO PRN (05:30)
[2018-08-23] MEDS: GANCICLOVIR 0.15% OU SCH ×5 (05:30→20:20)
[2018-08-23] MEDS: valACYclovir HCL 500 MG TAB PO SCH ×3 (05:30→22:23)
[2018-08-23 06:00] VITALS: BP 148/80
[2018-08-23 06:35] LABS: HEMATOCRIT 33.1 % (42.0-52.0); HEMOGLOBIN 10.9 g/dl (13.5-17.5); MEAN CORPUSCULAR HEMOGLOBIN 27.4 pg (27.0-33.0); MEAN CORPUSCULAR HGB CONC 32.9 g/dl (32.0-36.5); MEAN CORPUSCULAR VOLUME 83.2 fl (80.0-96.0); PLATELET COUNT, AUTOMATED 308 10^3/uL (150-450); RED BLOOD COUNT 3.98 10^6/uL (4.30-6.10)
[2018-08-23 06:50] LABS: BLOOD UREA NITROGEN 11 MG/DL (7-18); C REACTIVE PROTEIN QUANTITATIV 1.27 MG/DL (0.00-0.30); CALCIUM LEVEL 8.4 MG/DL (8.8-10.2); CARBON DIOXIDE LEVEL 28 MEQ/L (21-32); CHLORIDE LEVEL 102 MEQ/L (98-107); CREATININE FOR GFR 0.92 MG/DL (0.70-1.30); GLOMERULAR FILTRATION RATE > 60.0 (>42); GLUCOSE, FASTING 92 MG/DL (70-100); POTASSIUM SERUM 4.2 MEQ/L (3.5-5.1); SODIUM LEVEL 136 MEQ/L (136-145)
[2018-08-23] MEDS: levETIRAcetam 250MG TABLET (KEPPRA) PO SCH ×2 (09:10→20:18)
[2018-08-23] MEDS: ENOXAPARIN 30 MG/0.3 ML SYR (J1650) SC SCH (09:10)
[2018-08-23] MEDS: CLOPIDOGREL 75 MG TAB PO SCH (09:11)
[2018-08-23] MEDS: OMEPRAZOLE 20 MG CAP PO SCH (09:11)
[2018-08-23] MEDS: TOBRADEX OPHTH SUSP 2.5 ML OD SCH ×3 (09:11→20:19)
[2018-08-23] MEDS: LACTOBACILLUS ACIDOPHILUS CAP (BACID) PO SCH ×2 (09:11→20:18)
[2018-08-23] MEDS: VITAMIN D 1,000 INTERNATIONAL UNITS TABLET PO SCH (09:11)
--- NOTE | 2018-08-23 09:41 | IPN ---
DATE: 08/22/2018 Mr. Mcrae is doing very well. He is sitting in his chair. He states that he is independent with all activities of daily living (ADLs). He has no nausea, vomiting, diarrhea, headache, fever or chills. The patient has lost his IV access and the is question whether he would need a PICC line or he could be switched to by mouth Valtrex. He has no nausea, vomiting, headache, neck stiffness, or fever. On physical exam, vital signs are stable. Temperature is 97.7, pulse 90, respirations 20, blood pressure 136/96, O2 sat 99% on room air. Left facial zoster scabbed over, minimal surrounding erythema around the scabs. Left eye is more open today. He still has conjunctival erythema. LABS: White count 14.6, hemoglobin 10.8, hematocrit 33.2, platelets 283. Sodium 135, potassium 4.6, chloride 101, bicarb 28, BUN 15, creatinine 1.04, glucose 92, calcium 8.4, CRP 1.71 down from 11.5. INS AND OUTS: He had one bowel movement yesterday, zero bowel movements today. IMPRESSION: 1. Varicella zoster ophthalmicus associated with encephalitis. The patient has received 8 days of IV acyclovir. He has lost his IV access and has been doing very well. The patient could be switched to by mouth Valtrex 1 gram four times a day to finish a total 2-week course. He is currently day 8 out of 14. 2. Diarrhea has resolved off antibiotics. 3. Leukocytosis. The patient of note has a history of leukemia and this may only be related to that. 4. Mild hypogammaglobulinemia. There is no need for IVIG at this point. I have discussed the case with oncology and do not see any indication for IVIG as this will only decrease bacterial infections and the patient has a viral infection at this point and also immunoglobulin can cause an aseptic meningitis and confuse the picture. PLAN: Continue Valtrex for total of 6 days at 1 gram by mouth every 8 hours.
[2018-08-23] MEDS: diphenhydrAMINE 25 MG CAP PO PRN ×2 (10:27→20:18)
--- NOTE | 2018-08-23 11:34 | IPNPDOC ---
Subjective Date Seen The patient was seen on 08/23/18. Subjective Chief Complaint/HPI Pt is examined in the examine with nursing aid. He is able to open his left eye more now. He reports that he has some pain in his left eye, and there's hazy vision in bilateral eyes but it has improved compared to prior. Denies any fever, chills, headache, or stiffness. Patient admits some neck soreness but states it was because of his pillow when he slept last night. He states that his soft stool has resolved. General: Denies: Chills, Night Sweats Constitutional: Denies: Chills, Fever, Night Sweats Eyes: Reports: Pain (left eye), Vision change (Haziness in bilateral eyes which was not present prior to eye infection), Eyelid inflammation, Redness ENT: Denies: Head Aches Skin: Reports: Rash, Lesions Pulmonary: Denies: Dyspnea, Cough, Pleuritic Chest Pain Cardiovascular: Denies: Chest Pain, Palpitations Gastrointestinal: Denies: Nausea, Vomiting, Abdominal Pain, Diarrhea Musculoskeletal: Reports: Neck Pain (neck sorenessw) Neurological: Denies: Confusion Objective Physical Examination General Exam: Positive: Alert, Cooperative, No Acute Distress Eye Exam: Positive: Conjunctiva & lids normal (Left eye moderately open with moderate erythema and mod swelling), EOMI (Bilateral EOMI); Negative: Sclera icteric ENT Exam: Positive: Mucous membr. moist/pink, Nares Patent Neck Exam: Positive: Other (Patient able to actively rotate the neck to bilateral direction without any restriction) Chest Exam: Positive: Clear to auscultation, Normal air movement; Negative: Rales, Rhonchi, Wheezing Heart Exam: Positive: Rate Normal, Regular Rhythm, Normal S1, Normal S2; Negative: Murmurs Abdomen Exam: Positive: Normal bowel sounds, Soft; Negative: Tenderness Skin Exam: Positive: Nl turgor and temperature, Rash (Erythema in left upper eye lid, periorbital area, and glabella ), Lesion (Crusted lesions noted on left side of forehead. erythema noted in glabella area) Neuro Exam: Positive: Normal Speech; Negative: Strength at 5/5 X4 ext, Cranial Nerves 3-12 NL (CN3-12 grossly intact) Psych Exam: Positive: Mental status NL, Mood NL, Oriented x 3, Other (memory and cognitive fxn grossly intact); Negative: Anxiety Assessment /Plan Problems (1) Zoster encephalitis Status: Resolved Response to Treatment: Improving Discussed With: Retanned Leather Roller Problem Specific Plan: Monitor Clinically, Repeat Labs Problem Text: 08/23 On PO Valacyclovir. Currently day 8/14 antiviral treatment. CRP continue to improve 08/22 Continue PO Famacyclovir until Dr. Gillespie evaluation if pt may switch to PO regimen; if pt still needs IV antivirals, PICC line insertion will be ordered. Antiviral therapy until 08/28/18 to complete 14 days treatment in total. CRP continue to improve 08/21: no IV access. Will change to Famaciclovir 500 tid until IV can be established in am with PICC or see if Dr. Gillespie thinks we can change to po re gimen instead. Low grade fever resolved as of 08/17. Encephalopathy resolved;A&OX3, normal conversation. PT recommends d/c to rehab when medically stable; activity per PT. 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 Discussed with Pt's oncologist Dr. Godfrey; pt s/p 3 chemo treatment in 2014. f/u as outpt HIV screen neg. F/u on CRP and CBC. Continue to monitor the pt. (2) Zoster meningitis Status: Acute Response to Treatment: Improving Discussed With: Retanned Leather Roller, Patient Problem Specific Plan: Monitor Clinically, Repeat Labs Problem Text: Day 8/14 antiviral therapy for herpes zoster; currently on PO Valcyclovir. Low grade fever resolved. Stiffness completely resolved. Some neck soreness but pt reports it may be d/t his pillow. No ROM restriction for neck. 14 days antiviral coverage in total per Dr. Gillespie recommendation; PT recommends d/c to rehab when medically stable; activity per PT. 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 CRP improving. 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 Ulloa following. Erythema and swelling b/l upper eyelid improving. Infectious disease and ophtho are consulted. Continue Trifluridine eye drop, Zargan OU, and Tobradex. Currently on PO Famcyclovir as IV access was lost; Dr. Gillespie will re-evaluate if able to be on PO antiviral or PICC line is needed. F/U CRP and CBC (4) Blepharitis of both eyes Status: Acute Response to Treatment: Controlled Discussed With: Retanned Leather Roller Problem Specific Plan: Monitor Clinically, Repeat Labs Problem Text: With meibomian disease. Minocycline PO d/c. Cold compress starti ng 08/[address] Ulloa. Continue to monitor the pt for signs and symptoms. CRP improving;continue to f/u with CRP (5) CLL (chronic lymphocytic leukemia) Status: Chronic Discussed With: Retanned Leather Roller Problem Specific Plan: Repeat Labs Problem Text: PMH of CLL. Leukocytosis with WBC increasing. S/P 3 chemotherapy cycle in [address] [place] Godfrey determined no medication needed at this time. Zoster encephalitis/meningitis as well as oral thrush questionable immunocompromised state. Leukocytosis. Peripheral smear morphologic findings unchanged from peripheral blood flow cytometry in July of 2018 which showed persistent involvement from CLL/SLL. Discussed with pt's outpt oncologist Dr. Godfrey and recommended obtaining IgG lvl. Plan to f/u oncology outpt when stable for d/c (6) Hypertension Status: Chronic Response to Treatment: Stable Problem Text: Not on blood pressure medication as an outpatient. BP stable this morning 140s/80s. Continue vital signs as scheduled and will continue to monitor patient's symptoms. (7) Hyponatremia Status: Resolved Response to Treatment: Stable, Improving Problem Specific Plan: Monitor Clinically, Repeat Labs Problem Text: 08/23 Na 136; Hyponatremia resolved. Continue to f/u with BMP and monitor pt. Continue oral fluid intake restriction 1L/24hrs 08/22 Na 135. Continue to f/u with BMP and monitor the pt. On fluid intake restriction 1L/24 hrs. 08/21 Na 134 Na 135 08/19. May be 2/2 to GI loss Blood glucose stable. Continue to monitor BMP. AM cortisol wnl. ACTH lvl wnl. Continue to monitor and f/u with BMP. Serum osmolality 281. Urine Na and Urine osmolality ordered as serum osmo close to 280 thus r/o other causes of hypoonatremia; Pt euvolemic with urine osmo>100 thus hyponatremia may be d/t SIADH, tertiary adrenal insufficiency d/t CLL/meningitis, hemodilution, or elevated lipids/hyperlipidemia. Patient is naomy erating PO diet well. (8) Hypokalemia Status: Resolved Response to Treatment: Improving, Controlled Problem Specific Plan: Monitor Clinically, Repeat Labs Problem Text: Likely 2/2 to GI loss; watery bowel movement resolved currently soft stool. K at 4.6 this morning. Mg lvl wnl. KCl 40meq PO daily d/c. Patient tolerating PO regular diet well. Urine K wnl thus RTA 1 and 2 r/o. Continue to follow up with BMP. (9) Sacral pressure ulcer Status: Chronic Response to Treatment: Stable Discussed With: Patient Problem Text: Likely 2/2 prolonged sitting at home. Patient has been following wound care as an outpatient. Referral from [facility] Jun 2018. Wound care ordered. PT and OT ordered. Activity per PT/OT (10) Weakness generalized Status: Chronic Response to Treatment: Improving Discussed With: Patient Problem Specific Plan: Consult Specialist Problem Text: PT and OT recommends to con rehab after d/c. Activity per PT/OT (11) Paroxysmal atrial fibrillation Status: Chronic Response to Treatment: Controlled Discussed With: Patient Problem Specific Plan: Monitor Clinically Problem Text: Not in A. fib at the time of the examination. HR wnl. Continue Clopidogrel and Atorvastatin. Continue vital signs as scheduled (12) Hypogammaglobulinemia Status: Chronic Problem Text: Mild. Per Oncology and Infectious disease's recommendation, there is no need for IVIG at this time as this will only decrease bacterial infections; immunoglobulin may cause aseptic meningitis (13) CVA (cerebral vascular accident) Status: Chronic Response to Treatment: Stable Problem Specific Plan: Monitor Clinically Problem Text: Hx of right thalamic stroke; denies sequalae from prior CVA. Hx of another TIA a week after the right thalamic stroke. Continue Lipitor and Clopidogreol (14) Epilepsy Status: Chronic Response to Treatment: Stable, Controlled Problem Specific Plan: Monitor Clinically Problem Text: Hx of seizure d/o. Continue Keppra. Seizure precaution (15) Diarrhea in adult patient Status: Resolved Response to Treatment: Improving, Controlled Discussed With: Patient Problem Text: Resolved. Cont probiotics. Continue to monitor (16) Lack of intravenous access Status: Acute Problem Specific Plan: Consult Specialist (ID will re-evaluate pt to see if PO anti-viral is sufficient; otherwise PICC line is needed) Problem Text: Pt will be switched to PO Valtrex to complete antiviral coverage. Plan/VTE VTE Prophylaxis Ordered?: Yes (SC lovenox) Plan IVF: Discontinue Diet: Continue Current Therapy: PT, OT Medications: Change to PO, Bowel Regimen Diagnostics: Repeat Labs in AM Disposition On PO Valcyclovir day 03/15. Hyponatremia resolved. VS, I&O, 24H, Fishbone Vital Signs/I&O Vital Signs Date Time Temp Pulse Resp B/P (MAP) Pulse Ox O2 Delivery O2 Flow Rate FiO2 08/23/18 06:00 97.5 82 17 148/80 (102) 98 Room Air I&O- Last 24 Hours up to 6 AM 08/23/18 06:00 Intake Total 930 ml Output Total 0 ml Balance 930 ml Laboratory Data 24H LABS Laboratory Tests 2 08/23/18 06:16: Nucleated Red Blood Cells % (auto) 0.0, Anion Gap 6L, Glomerular Filtration Rate > 60.0, Blood Urea Nitrogen 11, Creatinine 0.92, Sodium Level 136, Potassium Level 4.2, Chloride Level 102, Carbon Dioxide Level 28, Calcium Level 8.4L, C- Reactive Protein, Quantitative 1.27H CBC/BMP Laboratory Tests 08/23/18 06:16 Red Blood Count 3.98 L, Mean Corpuscular Volume 83.2, Mean Corpuscular Hemoglobin 27.4, Mean Corpuscular Hemoglobin Concent 32.9, Red Cell Distribution Width 15.2 H, Calcium Level 8.4 L Microbiology Microbiology 08/14/18 Blood Culture - Final, Complete NO GROWTH AFTER 5 DAYS 08/14/18 Blood Culture - Final, Complete NO GROWTH AFTER 5 DAYS 08/14/18 - Final, Complete Varicella Zoster Virus (Vzv) 08/14/18 Gram Stain - Final, Resulted 08/14/18 CSF Culture - Preliminary, Resulted QUANG CA DO Aug 23, 2018 11:34
[2018-08-23 14:00] VITALS: BP 137/72
--- NOTE | 2018-08-23 17:54 | IPN ---
DATE: 08/23/2018 Mr. Mcrae seems to be doing well. He has no headache. No fever or chills. No nausea, vomiting or diarrhea. He has no complaints. He is using a warm soak on his face to help with swelling and dryness. LABORATORY: White count is 15, hemoglobin 10.9, hematocrit 33.1, platelets 308. Sodium 136, potassium for 4.2, chloride 102, bicarbonate 28, BUN 11, creatinine 0.92, glucose 92, calcium 8.4, CRP 1.27 down from admission 11.5. IMPRESSION: 1. On physical exam, zoster ophthalmicus with dry scabs and no lesions, doing well. No evidence of superimposed infection. On Valtrex 1 gram by mouth every 8 hours. 2. Conjunctival erythema. On TobraDex. The patient complains of floaters. Schedule followup appointment will ophthalmology. 3. Leukocytosis. The patient has a history of recurrent CLL. PLAN: Continue Valtrex, currently day #9 out of 14. Schedule followup with ophthalmology. Discontinue airborne isolation.
[2018-08-23 18:05] LABS: ATYPICAL LYMPH 22 % (0-5); BASOPHILS 3 % (0-4); EOSINOPHILS 5 % (0-5); LYMPHOCYTES 23 % (16-52); MONOCYTES 22 % (0-8); NEUTROPHILS 25 % (35-75); PLATELET ESTIMATE NORMAL (NORMAL)
--- NOTE | 2018-08-23 19:10 | DS.PDOC ---
Discharge Summary General Date of Admission Aug 14, 2018 at 09:55 Date of Discharge 08/23/18 Primary Care Physician: MARLENY HOPE DO Discharge Summary PROCEDURES PERFORMED DURING STAY: [None]. 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 Seizure disorder DISCHARGE DIAGNOSES: 1.Zoster encephalitis 2. Zoster meningitis 3. Herpes zoster ophthalmicus of left eye 4. Blepharitis of both eyes 5. CLL 6. Hypertension 7. Hyponatremia 8. Hypokalemia 9. Sacral pressure ulcer 10. Weakness, generalized 11. Paroxysmal atrial fibrillation 12. Hypogammaglobulinemia 13. Cerebral vascular accident 14. Epilepsy COMPLICATIONS/CHIEF COMPLAINT: Zoster Meningitis. HISTORY OF PRESENT ILLNESS: Pt is a 77 yo male with PMH of CLL, CVA with R reji lamic stroke in 2012, seizure disorder, essential HTN, paroxysmal a. 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 It was noted that pt has vesicles on left sided forehead as well as left red eye for 3-4 days prior to admission. He also reports generalized weakness the day prior to admission and was not able to stand and walk like he used to. There was a questionable if pt had a seizure. Pt had been seeing Dr. Ulloa outpt for swollen left eye and received minocycline. HOSPITAL COURSE: . Pt's lumbar puncture confirmed herpes zoster meningitis. ID was also consulted and recommended 14 days of anti-viral therapy to cover Zoster infection. Chronic sacral decubitus ulcer also noted. He received IV acyclovir through peripheral line. He was also diagnosed with Herpes Zoster ophthalmicus as he has swelling, erythema, and crust on the left eye lid, and was barely able to open his eyes. Pt was also determined to have zoster encepha litis as he was A&O to name only, but it gradually improved, and pt ended up being A&OX3. On 08/16 pt had a new-onset right eye lid swelling and erythema emerging without any vesicles on left sided face. Laila was consulted and determined pt also has chronic blepharitis and meibomian gland dz; cornea of left eye was spared from zoster infection; started patient on Zargan eye gel, Tobradex eye drop, PO minocycline, and warm compress. Warm compress was later switched to cold compress per Dr. Ulloa. His low grade fever, headache, and neck stillness resolved. Pt had hyponatremia with serum osmolality 281. Initially had 3 watery-soft stool per day and was placed on probiotics; denied d iarrhea on 08/23 PM. On 08/21 it was noted that pt lost peripheral IV access and was given Famicyclovir PO. On 08/22 Pt received PO Valcyclovir, and it was determined that pt may continue to receive PO antiviral to complete coverage. Pt reports visual haziness in b/l eyes, but he was able to open his left eye much more and reports that he had been feeling better; denying any headache, fever, chills, abdominal pain, headache, or neck stiffness. Majority of vesicles were crusted. Pt was determined to be safe to be d/c to rehab. DISCHARGE MEDICATIONS: Please see below. ALLERGIES: Please see below. PHYSICAL EXAMINATION ON DISCHARGE: VITAL SIGNS: Please see below. GENERAL: Alert, cooperative. Not in acute distress. HEENT: Head normocephalic, atraumatic. Left eye moderately open with moderate e rythema and mod swelling. Bilateral EOMI. No scleral icterus NECK: supple CARDIOVASCULAR EXAMINATION: RRR, no murmur, S1 and S2 normal RESPIRATORY EXAMINATION: CTA b/l, no rales, wheezing, or rhonchi ABDOMINAL EXAMINATION: soft, bowel sound aus in all 4 quadrants. No tenderness to palpation EXTREMITIES: +3/5 strength in right LE; +5/5 in the other extremities SKIN: Erythema in left upper eyelid, periorbital area, and glabella. Crusted lesions noted on left side of forehead. Erythema noted in glabella area NEUROLOGICAL EXAMINATION: Normal speech. CN3-12 grossly intact. PSYCHIATRIC EXAMINATION: Mental status and mood wnl. A&OX3, memory and cognitive fxn grossly intact LABORATORY DATA: Please see below. IMAGIN/13 CXR showed no acute cardiopulmonary disease 08/14 CT thoracic spine w/o contrast showed mild thoracic dextroscoliosis. Multilevel degenerative change. Extensive postoperative change within the lower cervical spine from prior anterior fusion. 08/14 CT lumbar spine Stable L4 spondylolysis; no significant spondylolisthesis. Multilevel degenerative disc disease and facet arthrosis. 08/[address] w/o contrast No acute intracranial abnormality 08/14 CT spine, cervical w/o contrast Extensive postoperative change from anterior fusion C3-C7. Degenerative changes. PROGNOSIS: Fair ACTIVITY: [As tolerated]. DIET: Soft mechanical diet DISCHARGE PLAN AND INSTRUCTION: F/u with PCP in 7 days after d/c from SNF. Day 8 Antiviral therapy for herpes zoster. Continue PO Valacyclovir to complete 14 days of antiviral coverage in total. ITEMS TO FOLLOWUP ON ON OUTPATIENT: 1. Herpes Zoster meningitis 2. Herpes zoster encephalitis 3. Herpes zoster ophthalmicus of left eye 4. Blepharitis of both eyes 5. CLL 6. Hypertension 7. Hyponatremia 8. Sacral pressure ulcer 9. Hypogammaglobulinemia 10. Weakness, generalized DISCHARGE CONDITION: [Stable]. TIME SPENT ON DISCHARGE: Greater than 15 minutes. Vital Signs/I&Os Vital Signs Date Time Temp Pulse Resp B/P (MAP) Pulse Ox O2 Delivery O2 Flow Rate FiO2 08/23/18 14:00 97.9 85 16 137/72 (93) 99 Room Air I&O- Last 24 Hours up to 6 AM 08/23/18 06:00 Intake Total 930 ml Output Total 0 ml Balance 930 ml Laboratory Data Labs 24H Laboratory Tests 2 08/23/18 06:16: Nucleated Red Blood Cells % (auto) 0.0, Neutrophils 25L, Lymphocytes (Manual) 23, Monocytes (Manual) 22H, Eosinophils (Manual) 5, Basophils (Manual) 3, Atypical Lymphocytes 22H, Platelet Estimate NORMAL, Anion Gap 6L, Glomerular Filtration Rate > 60.0, Blood Urea Nitrogen 11, Creatinine 0.92, Sodium Level 136, Potassium Level 4.2, Chloride Level 102, Carbon Dioxide Level 28, Calcium Level 8.4L, C-Reactive Protein, Quantitative 1.27H CBC/BMP Laboratory Tests 08/23/18 06:16 Red Blood Count 3.98 L, Mean Corpuscular Volume 83.2, Mean Corpuscular Hemoglobin 27.4, Mean Corpuscular Hemoglobin Concent 32.9, Red Cell Distribution Width 15.2 H, Calcium Level 8.4 L Microbiology Microbiology 08/14/18 Blood Culture - Final, Complete NO GROWTH AFTER 5 DAYS 08/14/18 Blood Culture - Final, Complete NO GROWTH AFTER 5 DAYS 08/14/18 - Final, Complete Varicella Zoster Virus (Vzv) 08/14/18 Gram Stain - Final, Resulted 08/14/18 CSF Culture - Preliminary, Resulted Discharge Medications Scheduled ([place] 3 500 500 mg) 1 Cap Cap, 500 CAP PO DAILY, (Reported) Atorvastatin Calcium (Atorvastatin Calcium) 80 Mg Tab, 80 MG PO QHS, (Reported) Clopidogrel Bisulfate (Clopidogrel) 75 Mg Tab, 75 MG PO DAILY, (Reported) Furosemide (Furosemide) 20 Mg Tab, 30 MG PO DAILY, (Reported) Levetiracetam (Keppra) 500 Mg Tab, 500 MG PO BID, (Reported) Minocycline HCl (Minocycline HCl) 100 Mg Cap, 100 MG PO DAILY, (Reported) Montelukast Sodium (Montelukast Sodium) 10 Mg Tab, 10 MG PO QHS, (Reported) Omeprazole (Omeprazole) 40 Mg Cap, 40 MG PO DAILY, (Reported) Vitamin D (Vitamin D) 2,000 Unit Cap, 2,000 UNIT PO DAILY, (Reported) [Oatmeal Lotion] , 1 APLCT TOP DAILY, (Reported) APPLIES TO WHOLE BODY FOR ITCHING. Scheduled PRN Acetaminophen (Acetaminophen ER) 650 Mg Tab, 650 MG PO Q6H PRN for PAIN, (Reported) Halobetasol Propionate (Ultravate) 0.05 % Oin, 1 APLCT TOP DAILY PRN for RASH, (Reported) Allergies Coded Allergies: No Known Allergies (Unverified , 02/20/18) QUANG CA DO Aug 23, 2018 19:10
[2018-08-23] MEDS: MONTELUKAST 10 MG TAB PO SCH (20:18)
[2018-08-23] MEDS: ATORVASTATIN 20 MG TAB PO SCH (20:18)
[2018-08-23 22:00] VITALS: BP 131/78
[2018-08-24] MEDS: diphenhydrAMINE 25 MG CAP PO PRN ×2 (05:36→15:45)
[2018-08-24] MEDS: valACYclovir HCL 500 MG TAB PO SCH ×3 (05:36→22:48)
[2018-08-24] MEDS: GANCICLOVIR 0.15% OU SCH ×5 (05:37→22:47)
[2018-08-24 06:00] VITALS: BP 130/71
[2018-08-24 06:14] LABS: HEMATOCRIT 33.8 % (42.0-52.0); HEMOGLOBIN 11.1 g/dl (13.5-17.5); MEAN CORPUSCULAR HEMOGLOBIN 27.1 pg (27.0-33.0); MEAN CORPUSCULAR HGB CONC 32.8 g/dl (32.0-36.5); MEAN CORPUSCULAR VOLUME 82.6 fl (80.0-96.0); PLATELET COUNT, AUTOMATED 324 10^3/uL (150-450); RED BLOOD COUNT 4.09 10^6/uL (4.30-6.10); WHITE BLOOD COUNT 15.7 10^3/uL (4.0-10.0)
[2018-08-24 06:45] LABS: BLOOD UREA NITROGEN 12 MG/DL (7-18); C REACTIVE PROTEIN QUANTITATIV 0.92 MG/DL (0.00-0.30); CALCIUM LEVEL 8.5 MG/DL (8.8-10.2); CARBON DIOXIDE LEVEL 28 MEQ/L (21-32); CHLORIDE LEVEL 101 MEQ/L (98-107); CREATININE FOR GFR 0.93 MG/DL (0.70-1.30); GLOMERULAR FILTRATION RATE > 60.0 (>42); GLUCOSE, FASTING 91 MG/DL (70-100); SODIUM LEVEL 136 MEQ/L (136-145)
[2018-08-24] MEDS: LACTOBACILLUS ACIDOPHILUS CAP (BACID) PO SCH ×2 (08:50→22:48)
[2018-08-24] MEDS: TOBRADEX OPHTH SUSP 2.5 ML OD SCH ×3 (08:50→22:47)
[2018-08-24] MEDS: ENOXAPARIN 30 MG/0.3 ML SYR (J1650) SC SCH (08:50)
[2018-08-24] MEDS: levETIRAcetam 250MG TABLET (KEPPRA) PO SCH ×2 (08:50→22:47)
[2018-08-24] MEDS: CLOPIDOGREL 75 MG TAB PO SCH (08:50)
[2018-08-24] MEDS: VITAMIN D 1,000 INTERNATIONAL UNITS TABLET PO SCH (08:51)
[2018-08-24] MEDS: OMEPRAZOLE 20 MG CAP PO SCH (08:51)
[2018-08-24 14:00] VITALS: BP 117/76
[2018-08-24] MEDS: MONTELUKAST 10 MG TAB PO SCH (22:48)
[2018-08-24] MEDS: ATORVASTATIN 20 MG TAB PO SCH (22:48)
[2018-08-25] MEDS: diphenhydrAMINE 25 MG CAP PO PRN ×3 (04:51→22:11)
[2018-08-25 06:00] VITALS: BP 131/65
[2018-08-25] MEDS: valACYclovir HCL 500 MG TAB PO SCH ×3 (06:12→20:21)
[2018-08-25] MEDS: GANCICLOVIR 0.15% OU SCH ×5 (06:13→20:23)
[2018-08-25 06:43] LABS: HEMATOCRIT 36.4 % (42.0-52.0); HEMOGLOBIN 11.4 g/dl (13.5-17.5); MEAN CORPUSCULAR HGB CONC 31.3 g/dl (32.0-36.5); MEAN CORPUSCULAR VOLUME 86.1 fl (80.0-96.0); PLATELET COUNT, AUTOMATED 365 10^3/uL (150-450); RED BLOOD COUNT 4.23 10^6/uL (4.30-6.10); WHITE BLOOD COUNT 14.8 10^3/uL (4.0-10.0)
[2018-08-25 06:58] LABS: BLOOD UREA NITROGEN 12 MG/DL (7-18); C REACTIVE PROTEIN QUANTITATIV 0.78 MG/DL (0.00-0.30); CALCIUM LEVEL 8.5 MG/DL (8.8-10.2); CARBON DIOXIDE LEVEL 26 MEQ/L (21-32); CHLORIDE LEVEL 97 MEQ/L (98-107); CREATININE FOR GFR 1.19 MG/DL (0.70-1.30); GLOMERULAR FILTRATION RATE > 60.0 (>42); GLUCOSE, FASTING 136 MG/DL (70-100); POTASSIUM SERUM 3.7 MEQ/L (3.5-5.1); SODIUM LEVEL 134 MEQ/L (136-145)
[2018-08-25] MEDS: OMEPRAZOLE 20 MG CAP PO SCH (10:15)
[2018-08-25] MEDS: CLOPIDOGREL 75 MG TAB PO SCH (10:15)
[2018-08-25] MEDS: LACTOBACILLUS ACIDOPHILUS CAP (BACID) PO SCH ×2 (10:15→20:20)
[2018-08-25] MEDS: VITAMIN D 1,000 INTERNATIONAL UNITS TABLET PO SCH (10:15)
[2018-08-25] MEDS: ENOXAPARIN 30 MG/0.3 ML SYR (J1650) SC SCH (10:16)
[2018-08-25] MEDS: levETIRAcetam 250MG TABLET (KEPPRA) PO SCH ×2 (10:16→20:20)
[2018-08-25] MEDS: TOBRADEX OPHTH SUSP 2.5 ML OD SCH ×3 (10:17→20:21)
[2018-08-25] MEDS: ATORVASTATIN 20 MG TAB PO SCH (20:20)
[2018-08-25] MEDS: MONTELUKAST 10 MG TAB PO SCH (20:21)
[2018-08-26] MEDS: GANCICLOVIR 0.15% OU SCH ×5 (05:31→21:48)
[2018-08-26] MEDS: valACYclovir HCL 500 MG TAB PO SCH ×3 (05:31→21:47)
[2018-08-26 06:00] VITALS: BP 132/81
[2018-08-26] MEDS: diphenhydrAMINE 25 MG CAP PO PRN ×2 (06:10→18:47)
[2018-08-26 06:11] LABS: HEMOGLOBIN 11.1 g/dl (13.5-17.5); MEAN CORPUSCULAR HEMOGLOBIN 26.9 pg (27.0-33.0); MEAN CORPUSCULAR HGB CONC 32.6 g/dl (32.0-36.5); MEAN CORPUSCULAR VOLUME 82.5 fl (80.0-96.0); PLATELET COUNT, AUTOMATED 325 10^3/uL (150-450); RED BLOOD COUNT 4.12 10^6/uL (4.30-6.10); WHITE BLOOD COUNT 13.5 10^3/uL (4.0-10.0)
[2018-08-26 06:29] LABS: BLOOD UREA NITROGEN 11 MG/DL (7-18); C REACTIVE PROTEIN QUANTITATIV 0.61 MG/DL (0.00-0.30); CALCIUM LEVEL 8.1 MG/DL (8.8-10.2); CARBON DIOXIDE LEVEL 27 MEQ/L (21-32); CHLORIDE LEVEL 100 MEQ/L (98-107); CREATININE FOR GFR 1.08 MG/DL (0.70-1.30); GLOMERULAR FILTRATION RATE > 60.0 (>42); GLUCOSE, FASTING 113 MG/DL (70-100); POTASSIUM SERUM 3.7 MEQ/L (3.5-5.1); SODIUM LEVEL 135 MEQ/L (136-145)
[2018-08-26] MEDS: LACTOBACILLUS ACIDOPHILUS CAP (BACID) PO SCH ×2 (10:13→21:46)
[2018-08-26] MEDS: OMEPRAZOLE 20 MG CAP PO SCH (10:13)
[2018-08-26] MEDS: levETIRAcetam 250MG TABLET (KEPPRA) PO SCH ×2 (10:13→21:47)
[2018-08-26] MEDS: CLOPIDOGREL 75 MG TAB PO SCH (10:13)
[2018-08-26] MEDS: ENOXAPARIN 30 MG/0.3 ML SYR (J1650) SC SCH (10:14)
[2018-08-26] MEDS: VITAMIN D 1,000 INTERNATIONAL UNITS TABLET PO SCH (10:14)
[2018-08-26] MEDS: TOBRADEX OPHTH SUSP 2.5 ML OD SCH ×3 (10:15→21:49)
[2018-08-26] MEDS: ATORVASTATIN 20 MG TAB PO SCH (21:46)
[2018-08-26] MEDS: MONTELUKAST 10 MG TAB PO SCH (21:47)
[2018-08-27] MEDS: valACYclovir HCL 500 MG TAB PO SCH ×3 (05:45→21:32)
[2018-08-27] MEDS: GANCICLOVIR 0.15% OU SCH ×5 (05:46→21:32)
[2018-08-27 06:22] LABS: MEAN CORPUSCULAR HEMOGLOBIN 27.3 pg (27.0-33.0); MEAN CORPUSCULAR HGB CONC 32.4 g/dl (32.0-36.5); MEAN CORPUSCULAR VOLUME 84.3 fl (80.0-96.0); PLATELET COUNT, AUTOMATED 341 10^3/uL (150-450); RED BLOOD COUNT 4.39 10^6/uL (4.30-6.10); WHITE BLOOD COUNT 15.8 10^3/uL (4.0-10.0)
[2018-08-27 06:53] LABS: BLOOD UREA NITROGEN 10 MG/DL (7-18); CALCIUM LEVEL 8.6 MG/DL (8.8-10.2); CARBON DIOXIDE LEVEL 30 MEQ/L (21-32); CHLORIDE LEVEL 101 MEQ/L (98-107); CREATININE FOR GFR 1.08 MG/DL (0.70-1.30); GLOMERULAR FILTRATION RATE > 60.0 (>42); GLUCOSE, FASTING 103 MG/DL (70-100); POTASSIUM SERUM 4.5 MEQ/L (3.5-5.1); SODIUM LEVEL 135 MEQ/L (136-145)
[2018-08-27] MEDS: LACTOBACILLUS ACIDOPHILUS CAP (BACID) PO SCH ×2 (09:10→21:31)
[2018-08-27] MEDS: levETIRAcetam 250MG TABLET (KEPPRA) PO SCH ×2 (09:10→21:31)
[2018-08-27] MEDS: OMEPRAZOLE 20 MG CAP PO SCH (09:11)
[2018-08-27] MEDS: CLOPIDOGREL 75 MG TAB PO SCH (09:11)
[2018-08-27] MEDS: VITAMIN D 1,000 INTERNATIONAL UNITS TABLET PO SCH (09:11)
[2018-08-27] MEDS: TOBRADEX OPHTH SUSP 2.5 ML OD SCH ×2 (09:12→14:22)
[2018-08-27] MEDS: ENOXAPARIN 30 MG/0.3 ML SYR (J1650) SC SCH (09:13)
[2018-08-27 14:00] VITALS: BP 130/74
[2018-08-27] MEDS: diphenhydrAMINE 25 MG CAP PO PRN (17:37)
[2018-08-27] MEDS: ATORVASTATIN 20 MG TAB PO SCH (21:32)
[2018-08-27] MEDS: MONTELUKAST 10 MG TAB PO SCH (21:34)
[2018-08-27 22:00] VITALS: BP 150/73
[2018-08-28] MEDS: valACYclovir HCL 500 MG TAB PO SCH ×3 (05:54→21:39)
[2018-08-28] MEDS: GANCICLOVIR 0.15% OU SCH ×5 (05:55→20:28)
[2018-08-28 06:00] VITALS: BP 139/77
[2018-08-28 06:25] LABS: HEMATOCRIT 35.9 % (42.0-52.0); HEMOGLOBIN 11.6 g/dl (13.5-17.5); MEAN CORPUSCULAR HEMOGLOBIN 27.3 pg (27.0-33.0); MEAN CORPUSCULAR HGB CONC 32.3 g/dl (32.0-36.5); MEAN CORPUSCULAR VOLUME 84.5 fl (80.0-96.0); PLATELET COUNT, AUTOMATED 293 10^3/uL (150-450); RED BLOOD COUNT 4.25 10^6/uL (4.30-6.10); WHITE BLOOD COUNT 13.8 10^3/uL (4.0-10.0)
[2018-08-28 06:38] LABS: BLOOD UREA NITROGEN 10 MG/DL (7-18); C REACTIVE PROTEIN QUANTITATIV 0.77 MG/DL (0.00-0.30); CALCIUM LEVEL 8.3 MG/DL (8.8-10.2); CARBON DIOXIDE LEVEL 27 MEQ/L (21-32); CHLORIDE LEVEL 102 MEQ/L (98-107); GLOMERULAR FILTRATION RATE > 60.0 (>42); GLUCOSE, FASTING 94 MG/DL (70-100); POTASSIUM SERUM 3.7 MEQ/L (3.5-5.1); SODIUM LEVEL 136 MEQ/L (136-145)
[2018-08-28] MEDS: levETIRAcetam 250MG TABLET (KEPPRA) PO SCH ×2 (10:02→20:27)
[2018-08-28] MEDS: OMEPRAZOLE 20 MG CAP PO SCH (10:02)
[2018-08-28] MEDS: VITAMIN D 1,000 INTERNATIONAL UNITS TABLET PO SCH (10:02)
[2018-08-28] MEDS: CLOPIDOGREL 75 MG TAB PO SCH (10:03)
[2018-08-28] MEDS: ENOXAPARIN 30 MG/0.3 ML SYR (J1650) SC SCH (10:03)
[2018-08-28] MEDS: LACTOBACILLUS ACIDOPHILUS CAP (BACID) PO SCH ×2 (10:03→20:27)
[2018-08-28] MEDS: diphenhydrAMINE 25 MG CAP PO PRN ×2 (13:51→21:39)
[2018-08-28 14:00] VITALS: BP 157/86
[2018-08-28] MEDS: ATORVASTATIN 20 MG TAB PO SCH (20:26)
[2018-08-28] MEDS: MONTELUKAST 10 MG TAB PO SCH (20:27)
[2018-08-28 22:00] VITALS: BP 131/81
[2018-08-29] MEDS: LOPERAMIDE 2 MG CAP PO PRN ×3 (02:54→18:27)
[2018-08-29 06:00] VITALS: BP 129/71
[2018-08-29] MEDS: GANCICLOVIR 0.15% OU SCH ×2 (06:00→08:47)
[2018-08-29] MEDS: valACYclovir HCL 500 MG TAB PO SCH ×3 (06:00→22:20)
[2018-08-29 06:14] LABS: HEMATOCRIT 38.4 % (42.0-52.0); HEMOGLOBIN 12.3 g/dl (13.5-17.5); MEAN CORPUSCULAR VOLUME 84.4 fl (80.0-96.0); PLATELET COUNT, AUTOMATED 307 10^3/uL (150-450); RED BLOOD COUNT 4.55 10^6/uL (4.30-6.10); WHITE BLOOD COUNT 12.9 10^3/uL (4.0-10.0)
[2018-08-29 06:43] LABS: C REACTIVE PROTEIN QUANTITATIV 1.1 MG/DL (0.00-0.30); CREATININE FOR GFR 1.62 MG/DL (0.70-1.30); GLOMERULAR FILTRATION RATE 44.2 (>42); POTASSIUM SERUM 4.6 MEQ/L (3.5-5.1)
[2018-08-29] MEDS: ENOXAPARIN 30 MG/0.3 ML SYR (J1650) SC SCH (08:46)
[2018-08-29] MEDS: levETIRAcetam 250MG TABLET (KEPPRA) PO SCH ×2 (08:46→22:20)
[2018-08-29] MEDS: OMEPRAZOLE 20 MG CAP PO SCH (08:46)
[2018-08-29] MEDS: CLOPIDOGREL 75 MG TAB PO SCH (08:46)
[2018-08-29] MEDS: VITAMIN D 1,000 INTERNATIONAL UNITS TABLET PO SCH (08:46)
[2018-08-29] MEDS: LACTOBACILLUS ACIDOPHILUS CAP (BACID) PO SCH ×2 (08:46→22:20)
--- NOTE | 2018-08-29 10:41 | IPNPDOC ---
Subjective Date Seen The patient was seen on 08/29/18. Subjective Chief Complaint/HPI It was noted that pt has 13 diarrhea yesterday which is brown color. He denies any fever, chills, nausea, vomiting, or abdominal pain. States that he is able to open his left eye more and that his visions are clear. Described some mild upper eye lid pain. Constitutional: Denies: Chills, Fever, Night Sweats Eyes: Reports: Eyelid inflammation, Redness; Denies: Vision change Skin: Reports: Rash, Lesions Gastrointestinal: Reports: Diarrhea; Denies: Nausea, Vomiting, Abdominal Pain, Melena, Hematochezia Neurological: Denies: Change in speech, Confusion Objective Physical Examination General Exam: Positive: Alert, Cooperative, No Acute Distress Eye Exam: Positive: Conjunctiva & lids normal (Left eye half open with milderythema and mod swelling), EOMI (EMOI bilaterally); Negative: Sclera icteric ENT Exam: Positive: Mucous membr. moist/pink, Nares Patent Neck Exam: Positive: Supple; Negative: JVD Chest Exam: Positive: Clear to auscultation, Normal air movement; Negative: Rales, Rhonchi, Wheezing Heart Exam: Positive: Rate Normal, Regular Rhythm, Normal S1, Normal S2; Negative: Murmurs Abdomen Exam: Positive: Normal bowel sounds, Soft; Negative: Tenderness Skin Exam: Positive: Nl turgor and temperature, Rash (Erythema in left upper eye lid), Lesion (Crusted lesions and open wound noted on left side of forehe ad) Neuro Exam: Positive: Normal Speech, Strength at 5/5 X4 ext, Other Psych Exam: Positive: Mental status NL, Mood NL, Oriented x 3, Other (Majority memory appears grossly intact, able to carry conversation); Negative: Anxiety Assessment /Plan Problems (1) Zoster encephalitis Status: Resolved Response to Treatment: Improving Discussed With: Youth Advocate Problem Specific Plan: Monitor Clinically, Repeat Labs Problem Text: 08/29 Today day 14/14 antiviral treatment. CRP mildly increase however likely 2/2 inflammatory rxn as pt having numerous diarrhea. PT recommends to d/c home with service when medically stable Herpetic encephalitis commonly seen in immunocompromised pts; Pt has CLL not on medication. Discussed with Pt's oncologist Dr. Godfrey; pt s/p 3 chemo treatment in 2014. f/u as outpt HIV screen neg. F/u on CRP and CBC. Continue to monitor the pt. (2) Zoster meningitis Status: Acute Response to Treatment: Improving Discussed With: Youth Advocate, Patient Problem Specific Plan: Monitor Clinically, Repeat Labs Problem Text: 08/29 Day 1414 antiviral therapy for herpes zoster. PO Valacyclovir will be d/c tmrw PT recommends to d/c home with service when medically stable Herpetic meningitis commonly seen in immunocompromised pts; Pt has CLL not on medication; Continue to f/u on CRP, CBC, and vital signs as scheduled (3) Herpes zoster ophthalmicus of left eye Status: Acute Response to Treatment: Improving Discussed With: Youth Advocate, Patient Problem Specific Plan: Monitor Clinically Problem Text: Warm compress of left eye lif per Dr. Ulloa. Dr. Ulloa following. Mild Erythema and swelling in left upper eyelid improving. Infectious disease and ophtho were consulted. On Trifluridine eye drop, Zargan OU, and Tobradex. Day 1414 Valacyclovir; will d/c tmrw. F/u CRP and CBC (4) Blepharitis of both eyes Status: Acute Response to Treatment: Controlled Discussed With: Youth Advocate Problem Specific Plan: Monitor Clinically, Repeat Labs Problem Text: With meibomian disease. Minocycline PO d/c. Cold compress right eye lidstarting 08/[address] Ulloa. Right eye swelling and erythema completely resolved. Continue to f/u with CRP and monitor for symptoms (5) CLL (chronic lymphocytic leukemia) Status: Chronic Discussed With: Youth Advocate Problem Specific Plan: Repeat Labs Problem Text: PMH of CLL. Leukocytosis with WBC increasing. S/P 3 chemotherapy cycle in [address] [place] Godfrey determined no medication needed at this time. Zoster encephalitis/meningitis as well as oral thrush questionable immunocompromised state. Leukocytosis. Peripheral smear morphologic findings unchanged from peripheral blood flow cytometry in July of 2018 which showed persistent involvement from CLL/SLL. Discussed with pt's outpt oncologist Dr. Godfrey and recommended obtaining IgG lvl. Plan to f/u oncology outpt when stable for d/c (6) Hypertension Status: Chronic Response to Treatment: Stable Problem Text: Not on blood pressure medication as an outpatient. BP stable this morning 129/71. Continue vital signs as scheduled and will continue to monitor patient's symptoms. (7) Sacral pressure ulcer Status: Chronic Response to Treatment: Stable Discussed With: Patient Problem Text: Likely 2/2 prolonged sitting at home. Patient has been following wound care as an outpatient. Referral from [facility] Jun 2018. Wound care ordered. PT and OT ordered. Activity per PT/OT (8) Weakness generalized Status: Chronic Response to Treatment: Improving Discussed With: Patient Problem Specific Plan: Consult Specialist Problem Text: PT and OT recommends to con rehab after d/c. Activity per PT/OT (9) Paroxysmal atrial fibrillation Status: Chronic Response to Treatment: Controlled Discussed With: Patient Problem Specific Plan: Monitor Clinically Problem Text: Not in A. fib at the time of the examination. HR wnl. Continue Clopidogrel and Atorvastatin. Continue vital signs as scheduled (10) Hypogammaglobulinemia Status: Chronic Problem Text: Mild. Per Oncology and Infectious disease's recommendation, there is no need for IVIG at this time as this will only decrease bacterial infections; immunoglobulin may cause aseptic meningitis (11) CVA (cerebral vascular accident) Status: Chronic Response to Treatment: Stable Problem Specific Plan: Monitor Clinically Problem Text: Hx of right thalamic stroke; denies sequalae from prior CVA. Hx of another TIA a week after the right thalamic stroke. Continue Lipitor and Clopidogreol (12) Epilepsy Status: Chronic Response to Treatment: Stable, Controlled Problem Specific Plan: Monitor Clinically Problem Text: Hx of seizure d/o. Continue Keppra. Seizure precaution (13) COLLEEN (acute kidney injury) Status: Acute Problem Text: COLLEEN creatinine 1.62 compared to 0.9 yesterday. Likely pre-renal from dehydration 2/2 excess fluid loss. D/C daily water intake restriction. Pt is tolerating PO diet well; encouraged to increased PO fluid and Na intake as previously hyponatremia. F/u with BMP tmrw (14) Diarrhea in adult patient Status: Resolved Response to Treatment: Improving, Controlled Discussed With: Patient Problem Text: 13 diarrhea noted yesterday; stool neg for C. diff. Cont Probiotics 1 each BID. Denies melena or hematochezia. D/C water intake restriction as pt losing excess water from diarrhea and causing COLLEEN. F/u with BMP and I&O. Continue to monitor (15) Lack of intravenous access Status: Acute Problem Text: Pt On PO Valacyclovir to complete antiviral coverage. (16) Physical deconditioning Status: Chronic Response to Treatment: Stable Problem Text: Pt is determined to be d/c to home with service when medically stable. Plan/VTE VTE Prophylaxis Ordered?: Yes ([place] lovenox) Plan Diet: Continue Current Therapy: PT, OT Medications: Bowel Regimen Diagnostics: Repeat Labs in AM Disposition day antiviral therapy. COLLEEN with diarrhea. Water restriction d/c. Likely d/c tmrw to home with services. VS, I&O, 24H, Fishbone Vital Signs/I&O Vital Signs Date Time Temp Pulse Resp B/P (MAP) Pulse Ox O2 Delivery O2 Flow Rate FiO2 08/29/18 06:00 98.2 81 19 129/71 (90) 93 Room Air I&O- Last 24 Hours up to 6 AM 08/29/18 06:00 Intake Total 1050 ml Balance 1050 ml Laboratory Data 24H LABS Laboratory Tests 2 08/29/18 05:39: Nucleated Red Blood Cells % (auto) 0.0, Anion Gap 8, Glomerular Filtration Rate 44.2, Blood Urea Nitrogen 19#H, Creatinine 1.62#H, Sodium Level 136, Potassium Level 4.6#, Chloride Level 105, Carbon Dioxide Level 23, Calcium Level 9.0, C- Reactive Protein, Quantitative 1.10H CBC/BMP Laboratory Tests 08/29/18 05:39 Red Blood Count 4.55, Mean Corpuscular Volume 84.4, Mean Corpuscular Hemoglobin 27.0, Mean Corpuscular Hemoglobin Concent 32.0, Red Cell Distribution Width 16.8 H, Calcium Level 9.0 Microbiology Microbiology 08/28/18 Clostridium difficile (PCR) - Final, Complete QUANG CA DO Aug 29, 2018 10:41
[2018-08-29] MEDS: ATORVASTATIN 20 MG TAB PO SCH (22:19)
[2018-08-29] MEDS: MONTELUKAST 10 MG TAB PO SCH (22:20)
[2018-08-30 06:00] VITALS: BP 127/67
[2018-08-30 06:14] LABS: HEMATOCRIT 38.8 % (42.0-52.0); HEMOGLOBIN 12.5 g/dl (13.5-17.5); MEAN CORPUSCULAR HEMOGLOBIN 27.2 pg (27.0-33.0); MEAN CORPUSCULAR HGB CONC 32.2 g/dl (32.0-36.5); MEAN CORPUSCULAR VOLUME 84.3 fl (80.0-96.0); PLATELET COUNT, AUTOMATED 261 10^3/uL (150-450); WHITE BLOOD COUNT 10.8 10^3/uL (4.0-10.0)
[2018-08-30] MEDS: valACYclovir HCL 500 MG TAB PO SCH (06:16)
[2018-08-30 06:37] LABS: BLOOD UREA NITROGEN 31 MG/DL (7-18); C REACTIVE PROTEIN QUANTITATIV 2.09 MG/DL (0.00-0.30); CALCIUM LEVEL 8.1 MG/DL (8.8-10.2); CARBON DIOXIDE LEVEL 19 MEQ/L (21-32); CHLORIDE LEVEL 106 MEQ/L (98-107); CREATININE FOR GFR 2.04 MG/DL (0.70-1.30); GLOMERULAR FILTRATION RATE 33.9 (>42); GLUCOSE, FASTING 96 MG/DL (70-100); POTASSIUM SERUM 3.7 MEQ/L (3.5-5.1); SODIUM LEVEL 135 MEQ/L (136-145)
[2018-08-30] MEDS: OMEPRAZOLE 20 MG CAP PO SCH (08:25)
[2018-08-30] MEDS: CLOPIDOGREL 75 MG TAB PO SCH (08:25)
[2018-08-30] MEDS: levETIRAcetam 250MG TABLET (KEPPRA) PO SCH ×2 (08:25→20:17)
[2018-08-30] MEDS: LACTOBACILLUS ACIDOPHILUS CAP (BACID) PO SCH ×2 (08:25→20:17)
[2018-08-30] MEDS: ENOXAPARIN 30 MG/0.3 ML SYR (J1650) SC SCH (08:25)
[2018-08-30] MEDS: VITAMIN D 1,000 INTERNATIONAL UNITS TABLET PO SCH (08:25)
[2018-08-30] MEDS ORDERED: ONDANSETRON 4 MG ORAL DISINTEGRATING TAB (Q0162 PER 1MG) SL PRN (08:45)
[2018-08-30] MEDS ORDERED: NS 1,000 ML IV SCH (08:45)
--- NOTE | 2018-08-30 08:48 | IPNPDOC ---
Subjective Date Seen The patient was seen on 08/30/18. Subjective Chief Complaint/HPI Patient was examined in the exam room while sitting on the chair. Pt had about 4-5 dry-heaving but he denied having dry-heaving. It was noted that pt had an episode of confusion overnight without being delirious and was easily re- directed. PT reported pt was doing worse compared to yesterday. Pt denies any fever, chills, abdominal pain, neck stiffness, headache, or neck pain. He reports some visual haziness in left eye only. General: Reports: Normal Appetite; Denies: Chills Constitutional: Reports: Weakness; Denies: Chills, Fever Eyes: Reports: Vision change (haziness of left eye; pt reported consistent with yesterday) Pulmonary: Denies: Dyspnea, Cough Cardiovascular: Denies: Chest Pain, Palpitations Gastrointestinal: Reports: Diarrhea; Denies: Abdominal Pain Psych: Denies: Memory Issues Objective Physical Examination General Exam: Positive: Alert, Cooperative, No Acute Distress Eye Exam: Positive: Conjunctiva & lids normal (Left eye half open with mild erythema and mod swelling), EOMI (EMOI bilaterally); Negative: Sclera icteric ENT Exam: Positive: Mucous membr. moist/pink, Nares Patent Neck Exam: Positive: Supple; Negative: JVD Chest Exam: Positive: Clear to auscultation, Normal air movement; Negative: Rales, Rhonchi, Wheezing Heart Exam: Positive: Rate Normal, Regular Rhythm, Normal S1, Normal S2; Negative: Murmurs Abdomen Exam: Positive: Normal bowel sounds, Soft; Negative: Tenderness Skin Exam: Positive: Nl turgor and temperature, Rash (Erythema in left upper eye lid), Lesion (Crusted lesions and open wound noted on left side of forehead) Neuro Exam: Positive: Normal Speech, Strength at 5/5 X4 ext, Other Psych Exam: Positive: Mental status NL, Mood NL, Oriented x 3, Other (Majority memory appears grossly intact, able to carry conversation); Negative: Anxiety Assessment /Plan Problems (1) Zoster encephalitis Status: Resolved Response to Treatment: Improving Discussed With: Tattoo And Body Artist Problem Specific Plan: Monitor Clinically, Repeat Labs Problem Text: 08/30 d/c PO Valacyclovir treatment as pt completed 14 days and elevated creatinine 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 Elevated creatinine partly contributed by dehydration from excessive diarrhea. Urine creatinine and uric acid ordered. 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 Discussed with Pt's oncologist Dr. Godfrey; pt s/p 3 chemo treatment in 2014. f/u as outpt HIV screen neg. F/u on CRP and CBC. Continue to monitor the pt. (2) Zoster meningitis Status: Acute Response to Treatment: Improving Discussed With: Tattoo And Body Artist, Patient Problem Specific Plan: Monitor Clinically, Repeat Labs Problem Text: 08/30 D/C PO Valacyclovir treatment as pt completed 14 days. Urine creatinine and uric acid ordered as pt likely as uric acid nephropathy. Pt on IV NS 100ml/hr. Cont to monitor 08/29 Day 14/14 antiviral therapy for herpes zoster. 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 Urine creatinine and uric acid ordered. Pt on IV NS 100ml/hr.Cont to monitor. Warm compress of left eye lif per Dr. Ulloa. Dr. Ulloa following. Mild Erythema and swelling in left upper eyelid improving. Infectious disease and ophtho were consulted. 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 Creatinine increasing. Antiviral D/C as pt already completed 14 days courses in total. Start IV NS at 100ml/hr. Urine creatinine and uric acid ordered. F/u with BMP (5) Blepharitis of both eyes Status: Resolved Response to Treatment: Controlled Discussed With: Tattoo And Body Artist Problem Specific Plan: Monitor Clinically, Repeat Labs Problem Text: 08/30 With meibomian disease. Resolved. Patient not on eye drops and minocycline anymore. Continue to f/u with CRP and monitor for symptoms (6) CLL (chronic lymphocytic leukemia) Status: Chronic Discussed With: Tattoo And Body Artist Problem Specific Plan: Repeat Labs Problem Text: PMH of CLL. Leukocytosis with WBC increasing. S/P 3 chemotherapy cycle in [address] [place] Godfrey determined no medication needed at this time. Zoster encephalitis/meningitis as well as oral thrush questionable immunocompromised state. Leukocytosis. Peripheral smear morphologic findings unchanged from peripheral blood flow cytometry in July of 2018 which showed persistent involvement from CLL/SLL. Discussed with pt's outpt oncologist Dr. Godfrey and recommended obtaining IgG lvl. Plan to f/u oncology outpt when stable for d/c (7) Hypertension Status: Chronic Response to Treatment: Stable Problem Text: Not on blood pressure medication as an outpatient. BP stable this morning 120s/60s. Continue vital signs as scheduled and will continue to monitor patient's symptoms. (8) Sacral pressure ulcer Status: Chronic Response to Treatment: Stable Discussed With: Patient Problem Text: Likely 2/2 prolonged sitting at home. Patient has been following wound care as an outpatient. Referral from [facility] Jun 2018. Wound care ordered. PT and OT ordered. Activity per PT/OT (9) Weakness generalized Status: Chronic Response to Treatment: Improving Discussed With: Patient Problem Specific Plan: Consult Specialist Problem Text: PT and OT recommends to con rehab after d/c. Activity per PT/OT (10) Paroxysmal atrial fibrillation Status: Chronic Response to Treatment: Controlled Discussed With: Patient Problem Specific Plan: Monitor Clinically Problem Text: Not in A. fib at the time of the examination. HR wnl. Continue Clopidogrel and Atorvastatin. Continue vital signs as scheduled (11) Hypogammaglobulinemia Status: Chronic Problem Text: Mild. Per Oncology and Infectious disease's recommendation, there is no need for IVIG at this time as this will only decrease bacterial infections; immunoglobulin may cause aseptic men ingitis (12) CVA (cerebral vascular accident) Status: Chronic Response to Treatment: Stable Problem Specific Plan: Monitor Clinically Problem Text: Hx of right thalamic stroke; denies sequalae from prior CVA. Hx of another TIA a week after the right thalamic stroke. Continue Lipitor and Clopidogreol (13) Epilepsy Status: Chronic Response to Treatment: Stable, Controlled Problem Specific Plan: Monitor Clinically Problem Text: Hx of seizure d/o. Continue Keppra. Seizure precaution (14) COLLEEN (acute kidney injury) Status: Acute Problem Text: COLLEEN creatinine 2.04 compared to 1.62 yesterday. 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 Start IV NS 100ml/hr. Pt is tolerating PO diet well; encouraged to increased PO fluid. Urine creatinine and uric acid ordered. F/u with BMP tmrw (15) Diarrhea in adult patient Status: Resolved Response to Treatment: Improving, Controlled Discussed With: Patient Problem Text: 4 diarrhea noted yesterday; stool neg for C. diff. Cont Probiotics 1 each BID. Denies melena or hematochezia. Start IV NS as pt's creatinine keeps increasing. F/u with BMP and I&O. Continue to monitor (16) Lack of intravenous access Status: Acute Problem Text: Pt was switched to PO Valacyclovir and completed his antiviral coverage. (17) Physical deconditioning Status: Chronic Response to Treatment: Stable Problem Text: Pt is determined to be d/c to home with service when medically stable. Plan/VTE VTE Prophylaxis Ordered?: Yes ([place] lovenox) Plan Diet: Continue Current Therapy: PT, OT Medications: Bowel Regimen Diagnostics: Check Labs, Repeat Labs in AM Disposition 1 confusion episode. Elevated creatinine likely d/t COLLEEN from dehydration 2/2 diarrhea vs COLLEEN from crystal nephropathy. Start IV NS 100ml/hr. Urine creatinine and uric acid ordered. It was noted that pt is doing worse with 1 person assist for standing today. VS, I&O, 24H, Fishbone Vital Signs/I&O Vital Signs Date Time Temp Pulse Resp B/P (MAP) Pulse Ox O2 Delivery O2 Flow Rate FiO2 08/30/18 06:00 99.1 96 18 127/67 (87) 99 Room Air I&O- Last 24 Hours up to 6 AM 08/30/18 06:00 Intake Total 1370 ml Output Total 0 ml Balance 1370 ml Laboratory Data 24H LABS Laboratory Tests 2 08/30/18 05:55: Nucleated Red Blood Cells % (auto) 0.0, Anion Gap 10, Glomerular Filtration Rate 33.9L, Blood Urea Nitrogen 31#H, Creatinine 2.04H, Sodium Level 135L, Potassium Level 3.7, Chloride Level 106, Carbon Dioxide Level 19L, Calcium Level 8.1L, C- Reactive Protein, Quantitative 2.09H CBC/BMP Laboratory Tests 08/30/18 05:55 Red Blood Count 4.60, Mean Corpuscular Volume 84.3, Mean Corpuscular Hemoglobin 27.2, Mean Corpuscular Hemoglobin Concent 32.2, Red Cell Distribution Width 17.2 H, Calcium Level 8.1 L Microbiology Microbiology 08/28/18 Clostridium difficile (PCR) - Final, Complete QUANG CA DO Aug 30, 2018 08:48
[2018-08-30 09:20] LABS: CK-MB VALUE MASS < 1.0 NG/ML (<3.6); CPK CREATINE PHOSPHOKINASE 37 U/L (39-308); TROPONIN I < 0.02 NG/ML (< 0.10)
[2018-08-30] MEDS: KCL 20MEQ in NS 1000ML 1,000 ML IV SCH ×2 (12:24→20:17)
[2018-08-30] MEDS: MONTELUKAST 10 MG TAB PO SCH (20:17)
[2018-08-30] MEDS: ATORVASTATIN 20 MG TAB PO SCH (20:17)
[2018-08-30] MEDS: LOPERAMIDE 2 MG CAP PO PRN (21:45)
[2018-08-31] MEDS: LOPERAMIDE 2 MG CAP PO PRN ×2 (03:11→16:10)
[2018-08-31] MEDS: KCL 20MEQ in NS 1000ML 1,000 ML IV SCH ×2 (05:11→17:12)
[2018-08-31 06:00] VITALS: BP 117/68
[2018-08-31 06:21] LABS: HEMATOCRIT 32.3 % (42.0-52.0); MEAN CORPUSCULAR HEMOGLOBIN 27.6 pg (27.0-33.0); MEAN CORPUSCULAR HGB CONC 32.5 g/dl (32.0-36.5); MEAN CORPUSCULAR VOLUME 84.8 fl (80.0-96.0); PLATELET COUNT, AUTOMATED 213 10^3/uL (150-450); RED BLOOD COUNT 3.81 10^6/uL (4.30-6.10); WHITE BLOOD COUNT 10.1 10^3/uL (4.0-10.0)
[2018-08-31 06:28] LABS: HEMOGLOBIN 10.5 g/dl (13.5-17.5)
[2018-08-31 06:50] LABS: CALCIUM LEVEL 7.4 MG/DL (8.8-10.2); CREATININE FOR GFR 1.46 MG/DL (0.70-1.30); GLOMERULAR FILTRATION RATE 49.8 (>42); POTASSIUM SERUM 3.7 MEQ/L (3.5-5.1)
[2018-08-31 07:53] LABS: ALBUMIN 2.7 GM/DL (3.2-5.2)
--- NOTE | 2018-08-31 08:43 | IPNPDOC ---
Subjective Date Seen The patient was seen on 08/31/18. Subjective Chief Complaint/HPI Patient is examined at beside. He stated that his diarrhea improved, only had 2 watery diarrhea yesterday. Denies any fever, chills, abdominal pain, chest pain, palpitation, or SOB. Described the visual haziness in left eye has resolved General: Reports: Fatigue Constitutional: Denies: Chills, Fever Eyes: Reports: Eyelid inflammation, Redness; Denies: Vision change Skin: Reports: Lesions, Itching Pulmonary: Denies: Dyspnea, Cough Cardiovascular: Denies: Chest Pain, Palpitations, Orthopnea Gastrointestinal: Reports: Diarrhea; Denies: Abdominal Pain, Constipation Neurological: Denies: Change in speech, Confusion Objective Physical Examination General Exam: Positive: Alert, Cooperative, No Acute Distress Eye Exam: Positive: EOMI (EMOI bilaterally), Other Eye Symptoms (left eye half open, seemed improving from yesterday. Less erythematous and swelling. ); Negative: Sclera icteric ENT Exam: Positive: Mucous membr. moist/pink, Nares Patent Neck Exam: Positive: Supple; Negative: JVD Chest Exam: Positive: Clear to auscultation, Normal air movement; Negative: Rales, Rhonchi, Wheezing Heart Exam: Positive: Rate Normal, Regular Rhythm, Normal S1, Normal S2; Negative: Murmurs Abdomen Exam: Positive: Normal bowel sounds, Soft; Negative: Tenderness Skin Exam: Positive: Nl turgor and temperature, Rash (Erythema in left upper eye lid), Lesion (Crusted lesions and open wound noted on left side of forehead) Neuro Exam: Positive: Normal Speech, Strength at 5/5 X4 ext Psych Exam: Positive: Mental status NL, Mood NL, Oriented x 3, Other (Majority memory appears grossly intact, able to carry conversation); Negative: Anxiety Assessment /Plan Problems (1) Zoster encephalitis Status: Resolved Response to Treatment: Improving Discussed With: Forms Designer Problem Specific Plan: Monitor Clinically, Repeat Labs Problem Text: 08/31 Pt is A&OX3, no confusion or delirum overnight reported. Creatinine improving at 1.46. Continue IV NS. F/u with BMP. 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 Elevated creatinine partly contributed by dehydration from excessive diarrhea. Urine creatinine and uric acid ordered. 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 Discussed with Pt's oncologist Dr. Godfrey; pt s/p 3 chemo treatment in 2014. f/u as outpt HIV screen neg. F/u on CRP and CBC. Continue to monitor the pt. (2) Zoster meningitis Status: Acute Response to Treatment: Improving Discussed With: Forms Designer, Patient Problem Specific Plan: Monitor Clinically, Repeat Labs Problem Text: 08/31 Afebrile with no neck stiffness/neck pain reported. Cont to monitor 08/30 D/C PO Valacyclovir treatment as pt completed 14 days. Urine creatinine and uric acid ordered as pt likely as uric acid nephropathy. Pt on IV NS 100ml/hr. Cont to monitor 08/29 Day 14 antiviral therapy for herpes zoster. 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 Left eye visual haziness resolved. Mild erythema and swelling. Cont to monitor and f/u with CBC. D/C PO Valacyclovir treatment as pt completed 14 days. Urine creatinine and uric acid ordered. Pt on IV NS 100ml/hr.Cont to monitor. Warm compress of left eye life per Dr. Ulloa. Dr. Ulloa following. Mild Erythema and swelling in left upper eyelid improving. Infectious disease and ophtho were consulted. F/u CRP and CBC (4) Uric acid nephropathy Status: Acute Problem Text: 08/31 IV NS adjusted to 75ml/hr as pt's Cl elevated. Creatinine at 1.46 improving from before. Continue to f/u with BMP. 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 Creatinine increasing. Antiviral D/C as pt already completed 14 days courses in total. Start IV NS at 100ml/hr. Urine creatinine and uric acid ordered. F/u with BMP (5) CLL (chronic lymphocytic leukemia) Status: Chronic Discussed With: Forms Designer Problem Specific Plan: Repeat Labs Problem Text: PMH of CLL. Leukocytosis with WBC increasing. S/P 3 chemotherapy cycle in [address] [place] Godfrey determined no medication needed at this time. Zoster encephalitis/meningitis as well as oral thrush questionable immunocompromised state. Leukocytosis. Peripheral smear morphologic findings unchanged from peripheral blood flow cytometry in July of 2018 which showed persistent involvement from CLL/SLL. Discussed with pt's outpt oncologist Dr. Godfrey and recommended obtaining IgG lvl. Plan to f/u oncology outpt when stable for d/c (6) Hypertension Status: Chronic Response to Treatment: Stable Problem Text: Not on blood pressure medication as an outpatient. BP stable this morning 117s/68. Continue vital signs as scheduled and will continue to monitor patient's symptoms. (7) Sacral pressure ulcer Status: Chronic Response to Treatment: Stable Discussed With: Patient Problem Text: Likely 2/2 prolonged sitting at home. Patient has been following wound care as an outpatient. Referral from [facility] Jun 2018. Wound care ordered. PT and OT ordered. Activity per PT/OT (8) Weakness generalized Status: Chronic Response to Treatment: Improving Discussed With: Patient Problem Specific Plan: Consult Specialist Problem Text: PT and OT recommends to home with services. Activity per PT/OT (9) Paroxysmal atrial fibrillation Status: Chronic Response to Treatment: Controlled Discussed With: Patient Problem Specific Plan: Monitor Clinically Problem Text: Not in A. fib at the time of the examination. HR wnl. Continue Clopidogrel and Atorvastatin. Continue vital signs as scheduled (10) Hypogammaglobulinemia Status: Chronic Problem Text: Mild. Per Oncology and Infectious disease's recommendation, there is no need for IVIG at this time as this will only decrease bacterial infections; immunoglobulin may cause aseptic meningitis (11) CVA (cerebral vascular accident) Status: Chronic Response to Treatment: Stable Problem Specific Plan: Monitor Clinically Problem Text: Hx of right thalamic stroke; denies sequalae from prior CVA. Hx of another TIA a week after the right thalamic stroke. Continue Lipitor and Clopidogreol (12) Epilepsy Status: Chronic Response to Treatment: Stable, Controlled Problem Specific Plan: Monitor Clinically Problem Text: Hx of seizure d/o. Continue Keppra. Seizure precaution (13) COLLEEN (acute kidney injury) Status: Acute Response to Treatment: Improving Problem Text: 08/31 Creatinine 1.46 today. Continue IV NS; titrate down to 75ml/hr as pt Cl elevated. Discuss with pt again and encouraged PO fluid and sodium intake. F/u with BMP. COLLEEN creatinine 2.04 compared to 1.62 yesterday. 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 Start IV NS 100ml/hr. Pt is tolerating PO diet well; encouraged to increased PO fluid. Urine creatinine and uric acid ordered. F/u with BMP tmrw (14) Diarrhea in adult patient Status: Resolved Response to Treatment: Improving, Controlled Discussed With: Patient Problem Text: 4 diarrhea noted yesterday; stool neg for C. diff. Cont Probiotics 1 each BID. Denies melena or hematochezia. Start IV NS as pt's creatinine keeps increasing. F/u with BMP and I&O. Continue to monitor (15) Lack of intravenous access Status: Acute Problem Text: Pt was switched to PO Valacyclovir and completed his antiviral coverage. (16) Physical deconditioning Status: Chronic Response to Treatment: Stable Problem Text: Pt is determined to be d/c to home with service when medically stable. Plan/VTE VTE Prophylaxis Ordered?: Yes ([place] lovenox) Plan Diet: Continue Current Therapy: PT, OT Medications: Bowel Regimen Diagnostics: Check Labs, Repeat Labs in AM VS, I&O, [facility]H, [facility] Vital Signs/I&O Vital Signs Date Time Temp Pulse Resp B/P (MAP) Pulse Ox O2 Delivery O2 Flow Rate FiO2 08/31/18 06:00 98.7 70 18 117/68 (84) 96 Room Air I&O- Last 24 Hours up to 6 AM 08/31/18 06:00 Intake Total 1925 ml Output Total 0 ml Balance 1925 ml Laboratory Data 24H LABS Laboratory Tests 2 08/31/18 05:52: Nucleated Red Blood Cells % (auto) 0.0, Anion Gap 9, Glomerular Filtration Rate 49.8, Blood Urea Nitrogen 28H, Creatinine 1.46H, Sodium Level 135L, Potassium Level 3.7, Chloride Level 110H, Carbon Dioxide Level 16L, Calcium Level 7.4L, Albumin 2.7L CBC/BMP Laboratory Tests 08/31/18 05:52 Red Blood Count 3.81 L, Mean Corpuscular Volume 84.8, Mean Corpuscular He moglobin 27.6, Mean Corpuscular Hemoglobin Concent 32.5, Red Cell Distribution Width 17.1 H, Calcium Level 7.4 L Microbiology Microbiology 08/28/18 Clostridium difficile (PCR) - Final, Complete QUANG CA DO Aug 31, 2018 08:43
[2018-08-31] MEDS: VITAMIN D 1,000 INTERNATIONAL UNITS TABLET PO SCH (09:03)
[2018-08-31] MEDS: OMEPRAZOLE 20 MG CAP PO SCH (09:03)
[2018-08-31] MEDS: LACTOBACILLUS ACIDOPHILUS CAP (BACID) PO SCH ×2 (09:03→20:42)
[2018-08-31] MEDS: ENOXAPARIN 30 MG/0.3 ML SYR (J1650) SC SCH (09:03)
[2018-08-31] MEDS: CLOPIDOGREL 75 MG TAB PO SCH (09:03)
[2018-08-31] MEDS: levETIRAcetam 250MG TABLET (KEPPRA) PO SCH ×2 (09:03→20:42)
[2018-08-31] MEDS: ATORVASTATIN 20 MG TAB PO SCH (20:42)
[2018-08-31] MEDS: MONTELUKAST 10 MG TAB PO SCH (20:42)
[2018-08-31 22:00] VITALS: BP 128/66
[2018-09-01] MEDS: KCL 20MEQ in NS 1000ML 1,000 ML IV SCH (01:00)
[2018-09-01 06:00] VITALS: BP 123/89
[2018-09-01 06:45] LABS: HEMATOCRIT 34.3 % (42.0-52.0); MEAN CORPUSCULAR HEMOGLOBIN 27.8 pg (27.0-33.0); MEAN CORPUSCULAR HGB CONC 32.1 g/dl (32.0-36.5); MEAN CORPUSCULAR VOLUME 86.6 fl (80.0-96.0); PLATELET COUNT, AUTOMATED 192 10^3/uL (150-450); RED BLOOD COUNT 3.96 10^6/uL (4.30-6.10); WHITE BLOOD COUNT 8.7 10^3/uL (4.0-10.0)
[2018-09-01 06:54] LABS: BLOOD UREA NITROGEN 16 MG/DL (7-18); CALCIUM LEVEL 7.7 MG/DL (8.8-10.2); CARBON DIOXIDE LEVEL 18 MEQ/L (21-32); CHLORIDE LEVEL 115 MEQ/L (98-107); GLOMERULAR FILTRATION RATE > 60.0 (>42); GLUCOSE, FASTING 81 MG/DL (70-100); POTASSIUM SERUM 4.1 MEQ/L (3.5-5.1); SODIUM LEVEL 141 MEQ/L (136-145)
[2018-09-01] MEDS: CLOPIDOGREL 75 MG TAB PO SCH (09:17)
[2018-09-01] MEDS: VITAMIN D 1,000 INTERNATIONAL UNITS TABLET PO SCH (09:17)
[2018-09-01] MEDS: OMEPRAZOLE 20 MG CAP PO SCH (09:17)
[2018-09-01] MEDS: LACTOBACILLUS ACIDOPHILUS CAP (BACID) PO SCH ×2 (09:17→20:04)
[2018-09-01] MEDS: levETIRAcetam 250MG TABLET (KEPPRA) PO SCH ×2 (09:17→20:03)
[2018-09-01] MEDS: ENOXAPARIN 30 MG/0.3 ML SYR (J1650) SC SCH (09:18)
--- NOTE | 2018-09-01 10:49 | IPNPDOC ---
Subjective Date Seen The patient was seen on 09/01/18. Subjective Chief Complaint/HPI Patient is examined while he is sitting on the chair. He states that he is feeling good, less fatigue compared to yesterday. Said there's some blurry vision in his left eye. Reported that he stopped picking his scab on his forehead after our discussion yesterday. Denies any fever, chills, headache, neck pain, neck stiffness, SOB, palpitation, or chest pain. Reported that his diarrhea resolved that he only had one formed stool yesterday. General: Denies: Chills, Night Sweats, Fatigue Constitutional: Denies: Chills, Fever, Night Sweats, Weakness Eyes: Reports: Vision change (left eye blurry vision) Pulmonary: Denies: Dyspnea, Cough Cardiovascular: Denies: Chest Pain, Palpitations, Orthopnea Gastrointestinal: Denies: Nausea, Vomiting, Abdominal Pain, Diarrhea Neurological: Denies: Weakness, Change in speech, Confusion Objective Physical Examination General Exam: Positive: Alert, Cooperative, No Acute Distress Eye Exam: Positive: EOMI (EMOI bilaterally), Other Eye Symptoms (left eye half open; continue to improve. Mild erythematous and swelling. ); Negative: Sclera icteric ENT Exam: Positive: Mucous membr. moist/pink, Nares Patent Neck Exam: Positive: Supple; Negative: JVD Chest Exam: Positive: Clear to auscultation, Normal air movement; Negative: Rales, Rhonchi, Wheezing Heart Exam: Positive: Rate Normal, Regular Rhythm, Normal S1, Normal S2; Negative: Murmurs Abdomen Exam: Positive: Normal bowel sounds, Soft; Negative: Tenderness Skin Exam: Positive: Nl turgor and temperature, Rash (Mild erythema in left upper eye lid), Lesion (Crusted lesions and healing wound noted on left side of forehead) Neuro Exam: Positive: Normal Speech, Strength at 5/5 X4 ext, Cranial Nerves 3- 12 NL Psych Exam: Positive: Mental status NL, Mood NL, Oriented x 3, Other (Majority memory appears grossly intact, able to carry conversation); Negative: Anxiety Assessment /Plan Problems (1) Zoster encephalitis Status: Resolved Response to Treatment: Improving Discussed With: Night Manager Problem Specific Plan: Monitor Clinically, Repeat Labs Problem Text: 09/01 A&OX3, CN3-12 grossly intact, no headache. No confusion/delirium overnight reported. Afebrile. Elevated creatinine resolved. IV NS d/c. Patient transferred to SNF. Cont to f/u with BMP. 08/31 Pt is A&OX3, no confusion or delirum overnight reported. Creatinine improving at 1.46. Continue IV NS. F/u with BMP. 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 Elevated creatinine partly contributed by dehydration from excessive diarrhea. Urine creatinine and uric acid ordered. 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 Discussed with Pt's oncologist Dr. Godfrey; pt s/p 3 chemo treatment in 2014. f/u as outpt HIV screen neg. F/u on CRP and CBC. Continue to monitor the pt. (2) Zoster meningitis Status: Acute Response to Treatment: Improving Discussed With: Night Manager, Patient Problem Specific Plan: Monitor Clinically, Repeat Labs Problem Text: 09/01 Resolved. Continues to be afebrile. No neck pain/stiffness/headache. Muscle strength +5/5 in all 4 extremities. Cont to monitor the pt 08/31 Afebrile with no neck stiffness/neck pain reported. Cont to monitor 08/30 D/C PO Valacyclovir treatment as pt completed 14 days. Urine creatinine and uric acid ordered as pt likely as uric acid nephropathy. Pt on IV NS 100ml/hr. Cont to monitor 08/29 Day 14/14 antiviral therapy for herpes zoster. 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 Mild blurry vision on left eye. Mild erythema and swelling that are improving. Cont to monitor and f/u with CBC. 08/31 Pt can open his left eye more. Left eye visual haziness resolved. Mild erythema and swelling. Cont to monitor and f/u with CBC. D/C PO Valacyclovir treatment as pt completed 14 days. Urine creatinine and uric acid ordered. Pt on IV NS 100ml/hr.Cont to monitor. Warm compress of left eye life per Dr. Ulloa. Dr. Ulloa following. Mild Erythema and swelling in left upper eyelid improving. Infectious disease and ophtho were consulted. F/u CRP and CBC (4) Uric acid nephropathy Status: Resolved Problem Text: 09/01 Resolved. Creatinine returned to baseline wnl. IV NS d/c. Cont to f/u with BMP 08/31 IV NS adjusted to 75ml/hr as pt's Cl elevated. Creatinine at 1.46 improving from before. Continue to f/u with BMP. 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 Creatinine increasing. Antiviral D/C as pt already completed 14 days courses in total. Start IV NS at 100ml/hr. Urine creatinine and uric acid ordered. F/u with BMP (5) CLL (chronic lymphocytic leukemia) Status: Chronic Discussed With: Night Manager Problem Specific Plan: Repeat Labs Problem Text: PMH of CLL. Leukocytosis with WBC increasing. S/P 3 chemotherapy cycle in [address] [place] Godfrey determined no medication needed at this t craig. Zoster encephalitis/meningitis as well as oral thrush questionable immunocompromised state. Leukocytosis. Peripheral smear morphologic findings unchanged from peripheral blood flow cytometry in July of 2018 which showed persistent involvement from CLL/SLL. Discussed with pt's outpt oncologist Dr. Godfrey and recommended obtaining IgG lvl. Plan to f/u oncology outpt when stable for d/c (6) Hypertension Status: Chronic Response to Treatment: Stable Problem Text: Not on blood pressure medication as an outpatient. BP stable this morning 117s/68. Continue vital signs as scheduled and will continue to monitor patient's symptoms. (7) Sacral pressure ulcer Status: Chronic Response to Treatment: Stable Discussed With: Patient Problem Text: Likely 2/2 prolonged sitting at home. Patient has been following wound care as an outpatient. Referral from [facility] Jun 2018 . Wound care ordered. PT and OT ordered. Activity per PT/OT (8) Weakness generalized Status: Chronic Response to Treatment: Improving Discussed With: Patient Problem Specific Plan: Consult Specialist Problem Text: PT and OT recommends to home with services. Activity per PT/OT (9) Paroxysmal atrial fibrillation Status: Chronic Response to Treatment: Controlled Discussed With: Patient Problem Specific Plan: Monitor Clinically Problem Text: Not in A. fib at the time of the examination. HR wnl. Continue Clopidogrel and Atorvastatin. Continue vital signs as scheduled (10) Hypogammaglobulinemia Status: Chronic Problem Text: Mild. Per Oncology and Infectious disease's recommendation, there is no need for IVIG at this time as this will only decrease bacterial infections; immunoglobulin may cause aseptic meningitis (11) CVA (cerebral vascular accident) Status: Chronic Response to Treatment: Stable Problem Specific Plan: Monitor Clinically Problem Text: Hx of right thalamic stroke; denies sequalae from prior CVA. Hx of another TIA a week after the right thalamic stroke. Continue Lipitor and Clopidogreol (12) Epilepsy Status: Chronic Response to Treatment: Stable, Controlled Problem Specific Plan: Monitor Clinically Problem Text: Hx of seizure d/o. Continue Keppra. Seizure precaution (13) COLLEEN (acute kidney injury) Status: Resolved Response to Treatment: Improving Problem Text: 09/01 Resolved. Creatinine returned to baseline wnl. Patient reported good oral fluid intake. D/c IV NS. Cont to f/u with BMP 08/31 Creatinine 1.46 today. Continue IV NS; titrate down to 75ml/hr as pt Cl elevated. Discuss with pt again and encouraged PO fluid and sodium intake. F/u with BMP. COLLEEN creatinine 2.04 compared to 1.62 yesterday. 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 Start IV NS 100ml/hr. Pt is tolerating PO diet well; encouraged to increased PO fluid. Urine creatinine and uric acid ordered. F/u with BMP tmrw (14) Diarrhea in adult patient Status: Resolved Response to Treatment: Improving, Controlled Discussed With: Patient Problem Text: 09/01 1 formed stool yesterday. Continue to monitor. Cont to f/u with BMP and I&O 08/31 4 diarrhea noted yesterday; stool neg for C. diff. Cont Probiotics 1 each BID. Denies melena or hematochezia. Start IV NS as pt's creatinine keeps increasing. F/u with BMP and I&O. Continue to monitor (15) Lack of intravenous access Status: Acute Problem Text: Pt was switched to PO Valacyclovir and completed his antiviral coverage. (16) Physical deconditioning Status: Chronic Response to Treatment: Stable Problem Text: Pt is likely to be d/c to [facility] when cleared by PT/OT. OT consult re-ordered Plan/VTE VTE Prophylaxis Ordered?: Yes (SC lovenox) Plan Diet: Continue Current Therapy: PT, OT Medications: Bowel Regimen Diagnostics: Check Labs, Repeat Labs in AM Disposition COLLEEN/crystal nephropathy resolved. Pending PT/OT clearance; likely d/c to [facility] VS, I&O, 24H, Fishbone Vital Signs/I&O Vital Signs Date Time Temp Pulse Resp B/P (MAP) Pulse Ox O2 Delivery O2 Flow Rate FiO2 09/01/18 06:00 96.5 59 18 100 09/01/18 06:00 123/89 (100) 08/31/18 22:00 109.0 08/31/18 06:00 Room Air I&O- Last 24 Hours up to 6 AM 09/01/18 06:00 Intake Total 2500 ml Output Total 875 ml Balance 1625 ml Laboratory Data 24H LABS Laboratory Tests 2 09/01/18 06:07: Nucleated Red Blood Cells % (auto) 0.0, Anion Gap 8, Glomerular Filtration Rate > 60.0, Blood Urea Nitrogen 16, Creatinine 0.90, Sodium Level 141, Potassium Level 4.1, Chloride Level 115H, Carbon Dioxide Level 18L, Calcium Level 7.7L CBC/BMP Laboratory Tests 09/01/18 06:07 Red Blood Count 3.96 L, Mean Corpuscular Volume 86.6, Mean Corpuscular Hemogl obin 27.8, Mean Corpuscular Hemoglobin Concent 32.1, Red Cell Distribution Width 17.3 H, Calcium Level 7.7 L Microbiology Microbiology 08/28/18 Clostridium difficile (PCR) - Final, Complete QUANG CA DO Sep 01, 2018 10:49
[2018-09-01] MEDS: MONTELUKAST 10 MG TAB PO SCH (20:03)
[2018-09-01] MEDS: ATORVASTATIN 20 MG TAB PO SCH (20:03)
[2018-09-01] MEDS: diphenhydrAMINE 25 MG CAP PO PRN (22:44)
[2018-09-02 06:00] VITALS: BP 154/78
[2018-09-02 06:44] LABS: HEMATOCRIT 33.5 % (42.0-52.0); HEMOGLOBIN 11.1 g/dl (13.5-17.5); MEAN CORPUSCULAR HEMOGLOBIN 27.6 pg (27.0-33.0); MEAN CORPUSCULAR HGB CONC 33.1 g/dl (32.0-36.5); MEAN CORPUSCULAR VOLUME 83.3 fl (80.0-96.0); PLATELET COUNT, AUTOMATED 213 10^3/uL (150-450); RED BLOOD COUNT 4.02 10^6/uL (4.30-6.10); WHITE BLOOD COUNT 9.2 10^3/uL (4.0-10.0)
[2018-09-02 07:09] LABS: BLOOD UREA NITROGEN 10 MG/DL (7-18); CALCIUM LEVEL 7.9 MG/DL (8.8-10.2); CARBON DIOXIDE LEVEL 22 MEQ/L (21-32); CHLORIDE LEVEL 109 MEQ/L (98-107); GLOMERULAR FILTRATION RATE > 60.0 (>42); GLUCOSE, FASTING 83 MG/DL (70-100); POTASSIUM SERUM 3.5 MEQ/L (3.5-5.1); SODIUM LEVEL 139 MEQ/L (136-145)
[2018-09-02] MEDS: VITAMIN D 1,000 INTERNATIONAL UNITS TABLET PO SCH (09:02)
[2018-09-02] MEDS: CLOPIDOGREL 75 MG TAB PO SCH (09:03)
[2018-09-02] MEDS: OMEPRAZOLE 20 MG CAP PO SCH (09:03)
[2018-09-02] MEDS: levETIRAcetam 250MG TABLET (KEPPRA) PO SCH ×2 (09:03→20:13)
[2018-09-02] MEDS: ENOXAPARIN 30 MG/0.3 ML SYR (J1650) SC SCH (09:03)
[2018-09-02] MEDS: LACTOBACILLUS ACIDOPHILUS CAP (BACID) PO SCH ×2 (09:03→20:13)
--- NOTE | 2018-09-02 15:38 | IPNPDOC ---
Subjective Date Seen The patient was seen on 09/02/18. Subjective Chief Complaint/HPI Patient is examined on the chair. He initially reported that he wanted to be d/c today. Pt reported that yesterday he picked on a crust on his inner eyelid, and there was trace bleeding which had resolved shortly after. However, after discussion with his brother and his friend on the phone, he reported that he wanted to be d/c home only if his house is not covered by snow and that he can enter his house General: Denies: Chills Constitutional: Denies: Chills, Fever Eyes: Reports: Vision change (mild left eye blurry vision), Eyelid inflammation, Redness ENT: Denies: Dysphagia Skin: Reports: Rash, Lesions Pulmonary: Denies: Dyspnea, Pleuritic Chest Pain Cardiovascular: Denies: Chest Pain, Palpitations Gastrointestinal: Denies: Nausea, Vomiting, Abdominal Pain, Diarrhea, Constipation Musculoskeletal: Denies: Neck Pain Neurological: Denies: Change in speech, Confusion Objective Physical Examination General Exam: Positive: Alert, Cooperative, No Acute Distress Eye Exam: Positive: EOMI (EMOI bilaterally), Other Eye Symptoms (left eye half open; continue to improve. Mild erythematous and swelling. ); Negative: Sclera icteric ENT Exam: Positive: Mucous membr. moist/pink, Nares Patent Neck Exam: Positive: Supple; Negative: JVD Chest Exam: Positive: Clear to auscultation, Normal air movement; Negative: Rales, Rhonchi, Wheezing Heart Exam: Positive: Rate Normal, Regular Rhythm, Normal S1, Normal S2; Negative: Murmurs Abdomen Exam: Positive: Normal bowel sounds, Soft; Negative: Tenderness Skin Exam: Positive: Nl turgor and temperature, Rash (Mild erythema in left upper eye lid), Lesion (Crusted lesions and healing wound noted on left side of forehead) Neuro Exam: Positive: Normal Speech, Strength at 5/5 X4 ext, Cranial Nerves 3- 12 NL Psych Exam: Positive: Mental status NL, Mood NL, Oriented x 3, Other (Majority memory appears grossly intact, able to carry conversation); Negative: Anxiety Assessment /Plan Problems (1) Zoster encephalitis Status: Resolved Response to Treatment: Improving Discussed With: Ortho/Prosthetic Aide Problem Specific Plan: Monitor Clinically, Repeat Labs Problem Text: 09/02 Resolved. Pt stable, A&OX3, no delirium/confusion overinight noted. 09/01 A&OX3, CN3-12 grossly intact, no headache. No confusion/delirium overnight reported. Afebrile. Elevated creatinine resolved. IV NS d/c. Patient transferred to SNF. Cont to f/u with BMP. 08/31 Pt is A&OX3, no confusion or delirum overnight reported. Creatinine improving at 1.46. Continue IV NS. F/u with BMP. 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 Elevated creatinine partly contributed by dehydration from excessive diarrhea. Urine creatinine and uric acid ordered. 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 Discussed with Pt's oncologist Dr. Godfrey; pt s/p 3 chemo treatment in 2014. f/u as outpt HIV screen neg. F/u on CRP and CBC. Continue to monitor the pt. (2) Zoster meningitis Status: Acute Response to Treatment: Improving Discussed With: Ortho/Prosthetic Aide, Patient Problem Specific Plan: Monitor Clinically, Repeat Labs Problem Text: Resolved. Continues to be afebrile. No neck pain/stiffness/headache. Muscle strength +5/5 in all 4 extremities. Cont to monitor the pt 08/31 Afebrile with no neck stiffness/neck pain reported. Cont to monitor 08/30 D/C PO Valacyclovir treatment as pt completed 14 days. Urine creatinine and uric acid ordered as pt likely as uric acid nephropathy. Pt on IV NS 100ml/hr. Cont to monitor 08/29 Day 14/14 antiviral therapy for herpes zoster. 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 Mild blurry vision on left eye. Mild erythema and mod swelling. Cont to monitor. Pt will f/u with Dr. Ulloa as outpt when d/c 09/01 Left eye half open, continue to improve gradually. Mild blurry vision on left eye. Mild erythema and swelling that are improving. Cont to monitor and f/u with CBC. 08/31 Pt can open his left eye more. Left eye visual haziness resolved. Mild erythema and swelling. Cont to monitor and f/u with CBC. D/C PO Valacyclovir treatment as pt completed 14 days. Urine creatinine and uric acid ordered. Pt on IV NS 100ml/hr.Cont to monitor. Warm compress of left eye life per Dr. Ulloa. Dr. Ulloa following. Mild Erythema and swelling in left upper eyelid improving. Infectious disease and ophtho were consulted. F/u CRP and CBC (4) CLL (chronic lymphocytic leukemia) Status: Chronic Discussed With: Ortho/Prosthetic Aide Problem Specific Plan: Repeat Labs Problem Text: PMH of CLL. Leukocytosis with WBC increasing. S/P 3 chemotherapy cycle in [address] [place] Godfrey determined no medication needed at this time. Zoster encephalitis/meningitis as well as oral thrush questionable immunocompromised state. Leukocytosis. Peripheral smear morphologic findings unchanged from peripheral blood flow cytometry in July of 2018 which showed persistent involvement from CLL/SLL. Discussed with pt's outpt oncologist Dr. Godfrey and recommended obtaining IgG lvl. Plan to f/u oncology outpt when stable for d/c (5) Hypertension Status: Chronic Response to Treatment: Stable Problem Text: Not on blood pressure medication as an outpatient. BP stable this morning 117s/68. Continue vital signs as scheduled and will continue to mo nitor patient's symptoms. (6) Sacral pressure ulcer Status: Chronic Response to Treatment: Stable Discussed With: Patient Problem Text: Likely 2/2 prolonged sitting at home. Patient has been following wound care as an outpatient. Referral from [facility] Jun 2018. Wound care ordered. PT and OT ordered. Activity per PT/OT (7) Weakness generalized Status: Chronic Response to Treatment: Improving Discussed With: Patient Problem Specific Plan: Consult Specialist Problem Text: PT and OT recommends to home with services. Activity per PT/OT (8) Paroxysmal atrial fibrillation Status: Chronic Response to Treatment: Controlled Discussed With: Patient Problem Specific Plan: Monitor Clinically Problem Text: Not in A. fib at the time of the examination. HR wnl. Continue Clopidogrel and Atorvastatin. Continue vital signs as scheduled (9) Hypogammaglobulinemia Status: Chronic Problem Text: Mild. Per Oncology and Infectious disease's recommendation, there is no need for IVIG at this time as this will only decrease bacterial infections; immunoglobulin may cause aseptic meningitis (10) CVA (cerebral vascular accident) Status: Chronic Response to Treatment: Stable Problem Specific Plan: Monitor Clinically Problem Text: Hx of right thalamic stroke; denies sequalae from prior CVA. Hx of another TIA a week after the right thalamic stroke. Continue Lipitor and Clopidogreol (11) Epilepsy Status: Chronic Response to Treatment: Stable, Controlled Problem Specific Plan: Monitor Clinically Problem Text: Hx of seizure d/o. Continue Keppra. Seizure precaution (12) Lack of intravenous access Status: Acute Problem Text: Pt was switched to PO Valacyclovir and completed his antiviral coverage. (13) Physical deconditioning Status: Chronic Response to Treatment: Stable Problem Text: Pt is likely to be d/c to home when cleared by PT/OT. PT and OT cleared pt to be d/c home with service. Pt unable to get back into house as house is covered by snow Plan/VTE VTE Prophylaxis Ordered?: Yes (SC lovenox) Plan Diet: Continue Current Therapy: PT, OT Medications: Bowel Regimen Diagnostics: Check Labs, Repeat Labs in AM Disposition pending d/c to home VS, I&O, 24H, Fishbone Vital Signs/I&O Vital Signs Date Time Temp Pulse Resp B/P (MAP) Pulse Ox O2 Delivery O2 Flow Rate FiO2 09/02/18 06:00 98.0 78 20 154/78 (103) 96 08/31/18 22:00 109.0 08/31/18 06:00 Room Air I&O- Last 24 Hours up to 6 AM 09/02/18 06:00 Intake Total 1700 ml Output Total 950 ml Balance 750 ml Laboratory Data 24H LABS Laboratory Tests 2 09/02/18 05:58: Nucleated Red Blood Cells % (auto) 0.0, Anion Gap 8, Glomerular Filtration Rate > 60.0, Blood Urea Nitrogen 10, Creatinine 0.90, Sodium Level 139, Potassium Level 3.5, Chloride Level 109H, Carbon Dioxide Level 22, Calcium Level 7.9L CBC/BMP Laboratory Tests 09/02/18 05:58 Red Blood Count 4.02 L, Mean Corpuscular Volume 83.3, Mean Corpuscular Hemoglobin 27.6, Mean Corpuscular Hemoglobin Concent 33.1, Red Cell Distribution Width 17.5 H, Calcium Level 7.9 L Microbiology Microbiology 08/28/18 Clostridium difficile (PCR) - Final, Complete QUANG CA DO Sep 02, 2018 15:38
[2018-09-02] MEDS: ATORVASTATIN 20 MG TAB PO SCH (20:12)
[2018-09-02] MEDS: MONTELUKAST 10 MG TAB PO SCH (20:13)
[2018-09-03 06:00] VITALS: BP 146/93
[2018-09-03 06:30] LABS: HEMATOCRIT 39.6 % (42.0-52.0); MEAN CORPUSCULAR HEMOGLOBIN 27.7 pg (27.0-33.0); MEAN CORPUSCULAR HGB CONC 32.8 g/dl (32.0-36.5); MEAN CORPUSCULAR VOLUME 84.3 fl (80.0-96.0); PLATELET COUNT, AUTOMATED 222 10^3/uL (150-450); WHITE BLOOD COUNT 13.2 10^3/uL (4.0-10.0)
[2018-09-03 06:57] LABS: BLOOD UREA NITROGEN 10 MG/DL (7-18); CALCIUM LEVEL 8.5 MG/DL (8.8-10.2); CARBON DIOXIDE LEVEL 26 MEQ/L (21-32); CHLORIDE LEVEL 103 MEQ/L (98-107); CREATININE FOR GFR 0.97 MG/DL (0.70-1.30); GLOMERULAR FILTRATION RATE > 60.0 (>42); GLUCOSE, FASTING 95 MG/DL (70-100); POTASSIUM SERUM 3.7 MEQ/L (3.5-5.1); SODIUM LEVEL 137 MEQ/L (136-145)
[2018-09-03] MEDS: LACTOBACILLUS ACIDOPHILUS CAP (BACID) PO SCH (09:27)
[2018-09-03] MEDS: OMEPRAZOLE 20 MG CAP PO SCH (09:27)
[2018-09-03] MEDS: ENOXAPARIN 30 MG/0.3 ML SYR (J1650) SC SCH (09:27)
[2018-09-03] MEDS: CLOPIDOGREL 75 MG TAB PO SCH (09:28)
[2018-09-03] MEDS: VITAMIN D 1,000 INTERNATIONAL UNITS TABLET PO SCH (09:28)
[2018-09-03] MEDS: levETIRAcetam 250MG TABLET (KEPPRA) PO SCH (09:28)
--- NOTE | 2018-09-03 13:21 | DSES ---
ADDENDUM TO DISCHARGE SUMMARY ON 08/23/2018 DATE: 09/03/2018 The patient was discharged from custodial facility (SNF) status to home 09/03/2018. It was noted that on 08/29/2018 that the patient started having diarrhea and reported thirteen diarrhea episodes the day before. It was brown color without any nausea, vomiting, chills, fever, or abdominal pain. Clostridium (C) difficile panel was negative. The patient also denied any melena or hematochezia. He was started on probiotics one tablet twice a day. It was also noted that the patient had acute kidney injury likely secondary to excess fluid loss from diarrhea versus crystal nephropathy from antivirals. Daily water intake restriction with discontinued, and he was encouraged to increase by mouth fluid intake, as well as sodium intake, as the patient also has mild hyponatremia. The patient's by mouth valacyclovir was discontinued on 08/30/2018, as he completed 14 days of intravenous (IV) plus by mouth antivirals in toto. It was also reported that the patient had an episode of confusion overnight but was easily redirected. Physical therapy (PT) reported that the patient was doing worse on 08/30/2018 and was not cleared to be discharged. The patient was started on IV normal saline for acute kidney injury, and creatinine returned to normal range on 09/01/2018. IV normal saline was discontinued. The patient's diarrhea also gradually improved on by mouth probiotics. He was alert and orientated with no neurological deficits or weakness, and the patient was cleared by PT and occupational therapy (OT) to be discharged home with service. The patient reported that he was unable to return home on 09/02/2018, as his house was covered by snow. Discussed with the patient's brother and the patient's friend, Mr. Calle, personally on the phone; and Mr. Calle reported that between the patient's brother and him, they will help take care of the patient before he gets a permanent placement. 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 Additional assessment: Diarrhea in adult patient, resolved. The rest of the condition remain the same besides what was mentioned above. The patient is alert and orientated times three with cranial nerve function III-XII grossly intact. Left eyelid mildly swollen with mild erythema and was able to open his left eye half only. Extraocular movements intact (EOMI) bilaterally. Crust and healing wounds noted on left upper forehead. Heart: Is regular rate and rhythm. No murmur. S1 and S2 normal. Lungs: Clear to auscultation bilaterally. No rales. No wheezing. No rhonchi. Abdomen: Soft. Bowel sounds present in all four quadrants. No tenderness to palpation. Extremities: +5/5 in all four extremities. The patient will be discharged to home with the help from his friend, Mr. Calle/the patient's brother on 09/03/2018. My faculty preceptor for this patient encounter was physically present during the encounter and was fully available. All aspects of the patient interview, examination, medical decision-making process, and medical care plan development were reviewed and approved by the faculty preceptor. The faculty preceptor is aware and concurs with the plan as stated in the body of this note and will attest to such by his/her cosignature.
== END 2018-09-03 13:00 | disposition home or self-care (01) | DRG 74 ==
LOC: M ED 00:12 → M ED INP 09:55 → M MSPAV 12:46
PROVIDERS: ADMIT Family Medicine; ATTEND Family Medicine
PROC: 009U3ZX Drainage of Spinal Canal, Percutaneous Approach, Diagnostic (ICD-10-PCS; principal; 2018-08-14)
DX: B02.0 Zoster encephalitis (principal); B02.30 Zoster ocular disease, unspecified; E87.1 Hypo-osmolality and hyponatremia; B37.0 Candidal stomatitis; C91.91 Lymphoid leukemia, unspecified, in remission; D80.1 Nonfamilial hypogammaglobulinemia; N17.9 Acute kidney failure, unspecified; G40.909 Epilepsy, unspecified, not intractable, without status epilepticus; I48.0 Paroxysmal atrial fibrillation; I10 Essential (primary) hypertension; E87.6 Hypokalemia; N14.2 Nephropathy induced by unspecified drug, medicament or biological substance; H01.004 Unspecified blepharitis left upper eyelid; L89.152 Pressure ulcer of sacral region, stage 2; R53.1 Weakness; B37.2 Candidiasis of skin and nail; R19.7 Diarrhea, unspecified; H01.011 Ulcerative blepharitis right upper eyelid; Z92.21 Personal history of antineoplastic chemotherapy; Z79.899 Other long term (current) drug therapy; T49.5X5A Adverse effect of ophthalmological drugs and preparations, initial encounter

== ENCOUNTER 2018-10-05 09:39 | Inpatient (IN) | payer MEDICARE, OTHER ==
[~2018-10-05] VITALS: Ht 152.4 cm; Wt 78.0 kg
[~2018-10-05 09:39] MED LIST changes: +ACE65ERTAB PO; +KEPP1TAB PO; +MINO100C4 PO; +MONT10TA2 PO; +OMEG1CAP16 PO; +[UNRECOGNIZED DRUG - CODE] TOP; +[UNRECOGNIZED DRUG - OTHER] TOP
[2018-10-05] MEDS ORDERED: ZIRG0.152 OU (09:53)
[2018-10-05] MEDS ORDERED: LOTE0.5G OS (09:53)
[2018-10-05] MEDS ORDERED: ACETAMINOPHEN 325 MG TAB PO ONE (10:00)
[2018-10-05] MEDS ORDERED: NS 1,000 ML IV ONE (10:00)
--- NOTE | 2018-10-05 10:21 | REP ---
CHEST, TWO VIEWS: Two views of the chest are performed and compared to prior study of 08/14/2018. There is no acute infiltrate. There is no pulmonary edema. The heart is normal in size. There is calcification of the thoracic aorta. The mediastinal silhouette is unchanged. There are mild degenerative changes of the spine. IMPRESSION: No acute pulmonary disease. Electronically Signed by Yaniv Stark MD 10/05/2018 08:32 P
[2018-10-05 10:33] LABS: HEMATOCRIT 37.3 % (42.0-52.0); MEAN CORPUSCULAR HEMOGLOBIN 28.3 pg (27.0-33.0); MEAN CORPUSCULAR HGB CONC 32.2 g/dl (32.0-36.5); PLATELET COUNT, AUTOMATED 165 10^3/uL (150-450); RED BLOOD COUNT 4.24 10^6/uL (4.30-6.10); WHITE BLOOD COUNT 10.9 10^3/uL (4.0-10.0)
[2018-10-05 10:47] LABS: INR 0.99; PROTHROMBIN TIME 13.2 SECONDS (12.1-14.4)
[2018-10-05 10:55] LABS: ATYPICAL LYMPH 16 % (0-5); LYMPHOCYTES 19 % (16-52); MONOCYTES 8 % (0-8); NEUTROPHILS 57 % (35-75)
[2018-10-05 10:56] LABS: PLATELET ESTIMATE NORMAL (NORMAL)
[2018-10-05 10:57] LABS: ANISOCYTOSIS 1+; POIKILOCYTOSIS 1+
[2018-10-05 11:03] LABS: ALT/SGPT 19 U/L (12-78); BLOOD UREA NITROGEN 18 MG/DL (7-18); CALCIUM LEVEL 8.5 MG/DL (8.8-10.2); CARBON DIOXIDE LEVEL 29 MEQ/L (21-32); CHLORIDE LEVEL 100 MEQ/L (98-107); CK-MB VALUE MASS < 1.0 NG/ML (<3.6); CPK CREATINE PHOSPHOKINASE 116 U/L (39-308); CREATININE FOR GFR 1.19 MG/DL (0.70-1.30); GLOMERULAR FILTRATION RATE > 60.0 (>42); GLUCOSE, FASTING 109 MG/DL (70-100); MB/CK RELATIVE INDEX 0.86 (< OR =4); POTASSIUM SERUM 3.9 MEQ/L (3.5-5.1); SODIUM LEVEL 139 MEQ/L (136-145)
[2018-10-05 11:04] LABS: ALBUMIN 3.5 GM/DL (3.2-5.2); BILIRUBIN,DIRECT 0.2 MG/DL (0.0-0.2); BILIRUBIN,TOTAL 0.5 MG/DL (0.2-1.0); LIPASE 91 U/L (73-393); TOTAL PROTEIN 6.2 GM/DL (6.4-8.2); TROPONIN I < 0.02 NG/ML (< 0.10)
[2018-10-05 11:15] LABS: INFLUENZA A AMPLIFICATION POSITIVE (NEGATIVE); INFLUENZA B AMPLIFICATION NEGATIVE (NEGATIVE)
[2018-10-05] MEDS ORDERED: OSELTAMIVIR PHOSPHATE 75 MG CAP (TAMIFLU) PO ONE (11:45)
[2018-10-05] MEDS ORDERED: BENZONATATE 100 MG CAP PO ONE (13:00)
[2018-10-05] MEDS ORDERED: BISACODYL 10 MG SUPP PR PRN (13:15)
[2018-10-05] MEDS ORDERED: HALOBETASOL PROPION 0.05% OINT 15 GM TOP PRN (13:15)
--- NOTE | 2018-10-05 15:01 | HPE ---
DATE OF ADMISSION: 10/05/2018 REASON FOR ADMISSION: Malaise, cough. The patient presented to the emergency department (ED) with complaint of cough and malaise. Found to be influenza A positive on screening. Was significantly febrile with a temperature over 102 on admission. He is not visibly dyspneic but has repetitive cough and because of his age and general debility, viewed as not able to be able to provide adequate self-care at home and admitted for subsequent care. He recently recovered from an episode of herpes zoster, which involved his left face and eye and was thought to involve also the ADOPTION WORKER and was admitted and received a long period of IV and then oral antiviral drugs. He has a history of a right thalamic stroke in September of 2012, which contributes to his ongoing debility, and he has a history of chronic lymphocytic leukemia (CLL) in the past but was treated with chemotherapy agent at least once, and his white counts subsequently have been not particularly elevated. He also has history of spinal stenosis, venous ulcers, chronic skin problems. He recently was diagnosed as having a problem with his skin related to history of bed-bug infestation and chronic pruritic dermatitis. Since seeing Dr. Clement, his skin has improved dramatically. PAST MEDICAL HISTORY: Remarkable as for those items as noted. Left ventricular hypertrophy with hyperkinesis, borderline LAE noted, and trace aortic and mitral insufficiency on an echocardiogram from May of 2018, history of epilepsy. When he first presented to our facility in May of 2018, he has an extensive rash; it was thought that perhaps carbamazepine was contributing and his antiseizure agent. In consultation with by Dr. Lynne of neurology service, was switched to levetiracetam 500 mg twice a day, and he has recently been on Zirgan 0.15% ophthalmic agent for treatment, along with Lotemax topical and gel to treat the periocular skin irritation related to posthepatic neuralgia. CURRENT MEDICATIONS: - fish oil 1360 mg capsule daily - vitamin D 2000 units daily - atorvastatin 80 mg daily - mometasone furoate ointment affected area daily - Plavix 75 mg daily - Keppra 500 mg by mouth twice a day - Lasix 30 mg daily - omeprazole 40 mg daily - halobetasol propionate 0.05% ointment daily to rash - minocycline 100 mg by mouth daily - acetaminophen 650 mg by mouth every 6 hours as needed - triamcinolone ointment 0.1% (it is not clear where this to be applied) - potassium chloride 20 mEq daily - Zirgan 0.15% gel to each eye daily - montelukast 10 mg daily - Tessalon Perles as needed for cough - prednisone 5 mg daily (he has been on in the past and does not seem to be a current; it is not clear whether he is taking this agent currently) REVIEW OF SYSTEMS: Malaise, cough, fever, headache, recent onset. No vomiting or diarrhea. No abdominal pain. No new neurologic deficit. Denies consumption of alcohol. Denies tobacco use. No new rashes. No new weakness. EXAMINATION: The patient alert, pleasant, cooperative. Temperature was 102.1 at admission. Most recent 99.8. Chest x-ray showed no active pulmonary disease. The emergency room specialist reports that his influenza screen was positive. Blood cultures have been drawn and are pending. HEENT: Normocephalic, atraumatic, although he has an extensive erythema and healing scars consistent with previous zoster history on the left face and into his scalp and near the eye on the left side. Oropharynx shows no oral lesions. He has no neck mass. No thyroid enlargement. No tracheal shift. Lungs are clear with no wheezing, rales, or rhonchi. Heart: Regular rhythm. No murmur heard. Abdomen: Soft. No guarding. No distention. No organ enlargement palpable. No rebound. Extremities: Show no edema. The rash previously manifesting has essentially resolved. He moves all extremities well. His speech is clear. He is oriented, cooperative, and seems to have a relatively intact memory. LABORATORY DATA: Today, developed so far: White count 10,900, hemoglobin 12.0, with normal indices except for increased RDW. Platelet count 165,000. Atypical lymphocytes were increased at 16%. Chemistries showed glucose 109. Electrolytes otherwise unremarkable. Lactic acid normal. Calcium 8.5. Alkaline phosphatase 125. Other liver tests were normal. The patient had reported some left-sided chest discomfort. Troponin negative and albumin 3.5, lipase 91. Urinalysis was done, which was normal. Influenza A was positive. 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 At this point, it is clear the patient is unable to adequate self-care. He is not ambulatory safely, and he will be admitted for ongoing care. Blood cultures have been done, but he has not been started on antibiotics because there is no current evidence for sepsis. I reviewed his ophthalmological preparations with his crop pest control specialist. He had been seen by Dr. Ulloa and Dr. Cruz; and at this point, he can stop his antiviral topical and use the corticosteroid topical only for his symptoms. Dr. Cruz did advise use of gabapentin to help with postherpetic neuralgia. This seems to be a reasonable suggestion, and this is a reasonable suggestion that the patient is willing to accept it. So, will start the agent at a low dose and titrate accordingly. He is also requesting medications for cough control. Will order codeine-containing cough medicine. Will continue his other medications. Tamiflu has been started at 75 mg. Will continue this agent twice a day. Anticipate 3-4 days acute stay to allow sufficient recovery for the patient to be able to engage in self-care,
[2018-10-05 15:30] VITALS: BP 171/98
[2018-10-05] MEDS: ACETAMINOPHEN/CODEINE 300MG/30MG 12.5 ML UDC PO PRN ×2 (15:37→21:32)
[2018-10-05] MEDS: GABAPENTIN 100 MG CAP PO SCH ×2 (15:37→21:31)
--- NOTE | 2018-10-05 20:33 | ECGEPIP ---
Stationary ECG Study [facility] - ED Test Date: 2018-10-05 Pat Name: LIN KERR Department: Room: - Gender: M Systems Analysis Manager: TC : 1940 Requested By: Kavita Lr Order Number: [id number] Reading MD: Smith Espinoza Measurements Intervals [place] Rate: 98 P: 66 SC: 168 QRS: 19 QRSD: 92 T: 59 QT: 344 QTc: 440 Interpretive Statements SINUS RHYTHM WITH OCCASIONAL SUPRAVENTRICULAR PREMATURE COMPLEXES Previous tracing was atrial fibrillation with rvr on 05-27-2018 Electronically Signed On 10-05-2018 20:33:02 EST by Smith Espinoza
[2018-10-05] MEDS: ATORVASTATIN 20 MG TAB PO SCH (21:31)
[2018-10-05] MEDS: OSELTAMIVIR PHOSPHATE 30MG CAPSULE PO SCH (21:31)
[2018-10-05] MEDS: MONTELUKAST 10 MG TAB PO SCH (21:31)
[2018-10-05] MEDS: levETIRAcetam 250MG TABLET (KEPPRA) PO SCH (21:32)
[2018-10-05 22:00] VITALS: BP 150/84
[2018-10-06] MEDS: GABAPENTIN 100 MG CAP PO SCH ×3 (05:34→20:40)
[2018-10-06 06:00] VITALS: BP 134/78
[2018-10-06 07:07] LABS: HEMATOCRIT 33.7 % (42.0-52.0); HEMOGLOBIN 10.7 g/dl (13.5-17.5); MEAN CORPUSCULAR HEMOGLOBIN 28.2 pg (27.0-33.0); MEAN CORPUSCULAR HGB CONC 31.8 g/dl (32.0-36.5); MEAN CORPUSCULAR VOLUME 88.7 fl (80.0-96.0); PLATELET COUNT, AUTOMATED 164 10^3/uL (150-450)
[2018-10-06 07:12] LABS: WHITE BLOOD COUNT 9.9 10^3/uL (4.0-10.0)
[2018-10-06 07:38] LABS: ALBUMIN 2.8 GM/DL (3.2-5.2); ALT/SGPT 19 U/L (12-78); BILIRUBIN,TOTAL 0.5 MG/DL (0.2-1.0); BLOOD UREA NITROGEN 18 MG/DL (7-18); CALCIUM LEVEL 7.6 MG/DL (8.8-10.2); CARBON DIOXIDE LEVEL 26 MEQ/L (21-32); CHLORIDE LEVEL 103 MEQ/L (98-107); CREATININE FOR GFR 1.01 MG/DL (0.70-1.30); GLOMERULAR FILTRATION RATE > 60.0 (>42); GLUCOSE, FASTING 81 MG/DL (70-100); MAGNESIUM LEVEL 1.8 MG/DL (1.8-2.4); POTASSIUM SERUM 3.4 MEQ/L (3.5-5.1); SODIUM LEVEL 139 MEQ/L (136-145); TOTAL PROTEIN 5.9 GM/DL (6.4-8.2)
[2018-10-06] MEDS: IPRATROPIUM 0.5MG/ALBUTEROL 2.5MG INH SOL UD 3ML (DUONEB)(J7620) NEB SCH ×3 (08:00→20:09)
[2018-10-06 08:04] LABS: EOSINOPHILS 7 % (0-5); LYMPHOCYTES 41 % (16-52); MONOCYTES 4 % (0-8); NEUTROPHILS 48 % (35-75)
[2018-10-06 08:05] LABS: ANISOCYTOSIS 1+; PLATELET ESTIMATE NORMAL (NORMAL)
--- NOTE | 2018-10-06 08:16 | IPNPDOC ---
Subjective Date Seen The patient was seen on 10/06/18. Subjective Chief Complaint/HPI Cough persists. Denies SOB Constitutional: Denies: Chills, Fever Pulmonary: Reports: Cough; Denies: Dyspnea Cardiovascular: Denies: Chest Pain, Palpitations Gastrointestinal: Denies: Nausea, Vomiting, Abdominal Pain, Diarrhea, Constipation Objective Physical Examination General Exam: Positive: Alert, No Acute Distress (bright and alert, breathing comfortably) Chest Exam: Positive: Wheezing (diffuse exp wheezes) Heart Exam: Positive: Rate Normal, Regular Rhythm Abdomen Exam: Positive: Normal bowel sounds, Soft; Negative: Tenderness Extremity Exam: Positive: Edema (trace BL) Assessment /Plan Problems (1) Influenza A Status: Acute Problem Text: Cont Tamiflu D#2/5 Add nebs and prednisone due to bronchospasm Stop Codeine based cough suppressant, patient asking for Tessalon but can resume codeine based product if breakthrough symptoms. 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 Araiza telephone contact yesterday, ophthalmic meds no longer needed. Gabapentin started at low dose for post herpetic neuralgia symptoms (4) H/O: CVA (cerebrovascular accident) Status: Chronic Response to Treatment: Stable Problem Specific Plan: Monitor Clinically Problem Text: Cont Atorvastatin and Plavix (5) Epilepsy Status: Chronic Response to Treatment: Stable Problem Specific Plan: Monitor Clinically Problem Text: On Keppra (6) Spinal stenosis Status: Chronic Response to Treatment: Stable Plan/VTE VTE Prophylaxis Ordered?: Yes (start Lovenox) Plan Therapy: PT Pt and Family Services: Other PFS Disposition Get PT - PFS consult placed to help with dipso planning - may need additional support at home VS, I&O, 24H, Johnbonrachelle Vital Signs/I&O Vital Signs Date Time Temp Pulse Resp B/P (MAP) Pulse Ox O2 Delivery O2 Flow Rate FiO2 10/06/18 06:00 98.7 83 22 134/78 (96) 94 10/05/18 09:54 Room Air I&O- Last 24 Hours up to 6 AM 10/06/18 06:00 Intake Total 2440 ml Output Total 100 ml Balance 2340 ml Laboratory Data 24H LABS Laboratory Tests 2 10/05/18 10:22: Nucleated Red Blood Cells % (auto) 0.0, Neutrophils 57, Lymphocytes (Manual) 19, Monocytes (Manual) 8, Atypical Lymphocytes 16H, Platelet Estimate NORMAL, Poikilocytosis 1+, Anisocytosis 1+, Prothrombin Time 13.2, Prothromb Time International Ratio 0.99, Anion Gap 10, Glomerular Filtration Rate > 60.0, Lactic Acid Level 1.1, Calcium Level 8.5L, Aspartate Amino Transf (AST/SGOT) 22, Alanine Aminotransferase (ALT/SGPT) 19, Alkaline Phosphatase 125H, Total Bilirubin 0.5, Direct Bilirubin 0.2, Total Creatine Kinase 116, Creatine Kinase MB < 1.0, Creatine Kinase MB Relative Index 0.86, Troponin I < 0.02, Total Protein 6.2L, Albumin 3.5, Albumin/Globulin Ratio 1.30, Lipase 91, Influenza Type A (RT-PCR) POSITIVEH, Influenza Type B (RT-PCR) NEGATIVE 10/05/18 10:32: Urine Color YELLOW, Urine Appearance CLEAR, Urine pH 6.0, Urine Specific Baker 1.008, Urine Protein NEGATIVE, Urine Glucose (UA) NEGATIVE, Urine Ketones NEGATIVE, Urine Blood NEGATIVE, Urine Nitrite NEGATIVE, Urine Bilirubin NEGATIVE, Urine Urobilinogen 0.2, Urine Leukocyte Esterase NEGATIVE, Urine WBC (Auto) 0, Urine RBC (Auto) 0, Urine Hyaline Casts (Auto) 1, Urine Bacteria (Auto) NEGATIVE, Urine Squamous Epithelial Cells 0, Urine Mucus (Auto) SMALL, Urine Sperm (Auto) 10/06/18 06:24: Nucleated Red Blood Cells % (auto) 0.0, Anion Gap 10, Glomerular Filtration Rate > 60.0, Calcium Level 7.6L, Aspartate Amino Transf (AST/SGOT) 26, Alanine Aminotransferase (ALT/SGPT) 19, Alkaline Phosphatase 100, Total Bilirubin 0.5, Total Protein 5.9L, Albumin 2.8L, Albumin/Globulin Ratio 0.90L, White Blood Count 9.9, Red Blood Count 3.80L, Hemoglobin 10.7L, Hematocrit 33.7L, Mean Corpuscular Volume 88.7, Mean Corpuscular Hemoglobin 28.2, Mean Corpuscular Hemoglobin Concent 31.8L, Red Cell Distribution Width 19.9H, Platelet Count 164, Lymphocytes # (Auto) , Blood Urea Nitrogen 18, Creatinine 1.01, Sodium Level 139, Potassium Level 3.4L, Chloride Level 103, Carbon Dioxide Level 26, Magnesium Level 1.8 CBC/BMP Laboratory Tests 10/05/18 10:22 Red Blood Count 4.24 L, Mean Corpuscular Volume 88.0, Mean Corpuscular Hemoglobin 28.3, Mean Corpuscular Hemoglobin Concent 32.2, Red Cell Distribution Width 19.7 H 10/06/18 06:24 Red Blood Count 3.80 L, Mean Corpuscular Volume 88.7, Mean Corpuscular Hemoglobin 28.2, Mean Corpuscular Hemoglobin Concent 31.8 L, Red Cell Distribution Width 19.9 H, Lymphocytes # (Auto) , Calcium Level 7.6 L, Aspartate Amino Transf (AST/SGOT) 26, Alanine Aminotransferase (ALT/SGPT) 19, Alkaline Phosphatase 100, Total Bilirubin 0.5, Total Protein 5.9 L, Albumin 2.8 L Microbiology Microbiology 10/05/18 Blood Culture, Received Pending 10/05/18 Blood Culture, Received Pending 10/05/18 MRSA Screen, Received Pending Attending Note Attending Note will try to change away from codeine cough suppressant. he is comfortable with minimal expiratory wheezes at this time. BRINDA SUN PA-C Oct 06, 2018 08:16 Aiden Velazquez MD Oct 06, 2018 10:04
[2018-10-06] MEDS: ACETAMINOPHEN/CODEINE 300MG/30MG 12.5 ML UDC PO PRN ×2 (08:18→15:14)
[2018-10-06] MEDS: levETIRAcetam 250MG TABLET (KEPPRA) PO SCH ×2 (08:19→20:41)
[2018-10-06] MEDS: CLOPIDOGREL 75 MG TAB PO SCH (08:19)
[2018-10-06] MEDS: FUROSEMIDE 20 MG TAB PO SCH (08:19)
[2018-10-06] MEDS: OSELTAMIVIR PHOSPHATE 30MG CAPSULE PO SCH ×2 (08:19→20:41)
[2018-10-06] MEDS: MINOCYCLINE 50 MG CAP PO SCH (08:19)
[2018-10-06] MEDS: PANTOPRAZOLE 20 MG TAB PO SCH (08:20)
[2018-10-06] MEDS: VITAMIN D 1,000 INTERNATIONAL UNITS TABLET PO SCH (08:28)
[2018-10-06] MEDS ORDERED: ALBUTEROL SULFATE 2.5 MG/0.5 ML INH NEB SOLN NEB PRN (08:30)
[2018-10-06] MEDS ORDERED: POTASSIUM CHLORIDE 10 MEQ SR TABLET PO ONE (08:30)
[2018-10-06] MEDS: ENOXAPARIN 40 MG/0.4 ML SYRINGE (J1650) SC SCH (08:30)
[2018-10-06] MEDS: predniSONE 20 MG TAB PO SCH (08:36)
[2018-10-06] MEDS: BENZONATATE 100 MG CAP PO SCH ×3 (11:24→20:41)
[2018-10-06 14:00] VITALS: BP 150/88
[2018-10-06] MEDS: MONTELUKAST 10 MG TAB PO SCH (20:40)
[2018-10-06] MEDS: ATORVASTATIN 20 MG TAB PO SCH (20:40)
[2018-10-06] MEDS: ACETAMINOPHEN TAB 650MG DOSE (2X325MG) PO PRN (20:41)
[2018-10-06 22:00] VITALS: BP 127/73
[2018-10-07] MEDS: IPRATROPIUM 0.5MG/ALBUTEROL 2.5MG INH SOL UD 3ML (DUONEB)(J7620) NEB SCH ×2 (01:01→07:55)
[2018-10-07] MEDS: ACETAMINOPHEN TAB 650MG DOSE (2X325MG) PO PRN (04:09)
[2018-10-07] MEDS: GABAPENTIN 100 MG CAP PO SCH (05:26)
[2018-10-07 06:00] VITALS: BP 145/81
[2018-10-07 06:35] LABS: HEMATOCRIT 33.8 % (42.0-52.0); HEMOGLOBIN 10.9 g/dl (13.5-17.5); MEAN CORPUSCULAR HEMOGLOBIN 28.4 pg (27.0-33.0); MEAN CORPUSCULAR HGB CONC 32.2 g/dl (32.0-36.5); PLATELET COUNT, AUTOMATED 190 10^3/uL (150-450); RED BLOOD COUNT 3.84 10^6/uL (4.30-6.10); WHITE BLOOD COUNT 10.4 10^3/uL (4.0-10.0)
[2018-10-07 07:06] LABS: ALT/SGPT 21 U/L (12-78); BILIRUBIN,TOTAL 0.4 MG/DL (0.2-1.0); BLOOD UREA NITROGEN 25 MG/DL (7-18); CALCIUM LEVEL 8.1 MG/DL (8.8-10.2); CARBON DIOXIDE LEVEL 27 MEQ/L (21-32); CHLORIDE LEVEL 104 MEQ/L (98-107); CREATININE FOR GFR 1.17 MG/DL (0.70-1.30); GLOMERULAR FILTRATION RATE > 60.0 (>42); GLUCOSE, FASTING 112 MG/DL (70-100); POTASSIUM SERUM 3.6 MEQ/L (3.5-5.1); SODIUM LEVEL 138 MEQ/L (136-145); TOTAL PROTEIN 6.2 GM/DL (6.4-8.2)
[2018-10-07] MEDS ORDERED: VENTAER IN (08:59)
[2018-10-07] MEDS ORDERED: OSEL30CA PO (08:59)
[2018-10-07] MEDS ORDERED: KLOR10TA76 PO (08:59)
[2018-10-07] MEDS ORDERED: PRED20TA PO (08:59)
[2018-10-07] MEDS ORDERED: BENZ-18 PO (08:59)
[2018-10-07] MEDS ORDERED: POTASSIUM CHLORIDE 10 MEQ SR TABLET PO SCH (09:00)
[2018-10-07] MEDS ORDERED: GABA-1171 PO (09:06)
--- NOTE | 2018-10-07 09:31 | DSES ---
DATE OF ADMISSION: 10/05/2018 DATE OF DISCHARGE: 10/07/2018 BRIEF HISTORY AND PHYSICAL: The patient is a 78-year-old patient of Dr. Hernandez who presented with a malaise and cough, found to be positive for influenza A, had a temperature of 102 on admission but not significantly dyspnea but had a repetitive cough. He had trouble managing himself at home due to the malaise related to this illness. PAST MEDICAL HISTORY IS SIGNIFICANT FOR: Recent herpes zoster of the left face and eye for which she had been on IV antiviral drugs and then oral antiviral drugs and now on some topical drugs and ophthalmic drops through the ophthalmology. He has had a history of a right thalamic stroke in September 2012 that contributes to ongoing disability. He has chronic lymphocytic leukemia (CLL) treated with chemo in the past. White blood cell counts have been fairly normal since then. History of spinal stenosis, venous ulcers. Recent bedbug infestation and chronic pruritic dermatitis for which he is seeing Dr. Clement. Left ventricular hypertrophy and hyperkinesis, borderline left atrial enlargement and trace aortic and mitral insufficiency on echo in May 2018. History of epilepsy. PERTINENT LABS ON ADMISSION: White count 10.9, hemoglobin 12, platelets 165,000. He had some atypical lymphs that were increased. Glucose was 109, otherwise his chemistries were unremarkable. Liver tests were normal. Troponin negative. Urinalysis normal. Flu screen was positive. Chest x-ray showed no acute pulmonary disease. HOSPITAL COURSE: The patient was admitted for generalized malaise and cough related to influenza A. He was placed on Tamiflu. He was wheezy the day following admission and so prednisone has been started for bronchospasm as well as nebulized bronchodilators. He was switched to Tessalon Perles for his cough and he will be discharged home to complete a 5-day course of Tamiflu treatment, albuterol inhaler has been sent home with him as well and he will complete a 5-day course of prednisone. He feels much better. His cough is improved. He will have Tessalon Perles to use at home as well. His lungs are clear as oxygen saturations are good. He was stable with physical therapy able to walk up and down the wall and up and down stairs and is safe for discharge home today. Hypokalemia: This was replaced orally and he will continue his usual home dose of potassium 20 mEq daily. Herpes zoster ophthalmicus, left eye. Dr. Cruz was contacted and ophthalmologic medications are no longer needed. Gabapentin started for low dose postherpetic neuralgia symptoms and topical steroids to the irritated skin around his eye. History of cerebrovascular accident (CVA): He remains on Plavix and atorvastatin. History of epilepsy, stable on Keppra. DISPOSITION: The patient is stable for discharge home. Followup with Dr. Hernandez next week. Diet regular. Activity as tolerated with his walker. MEDICATIONS: New prescriptions include albuterol inhaler to use every 6 hours while he is convalescing from the flu. - Yyikjozaxja283 mg three times a day as needed for his cough - Gabapentin 100 mg three times a day was initiated for post-herpetic neuralgia - Tamiflu 38 mg twice a day. He has 3-1/2 more days of this. This is renal dosed. - potassium 20 mEq daily - prednisone 40 mg daily for three more days - acetaminophen 650 mg every 6 hours as needed for pain - atorvastatin 80 mg at bedtime - Plavix 75 mg daily - furosemide 20 mg daily - Ultravate 0.05% ointment topically to the rash on his face - Keppra 5 mg twice a day - minocycline 100 mg daily - Singulair 10 mg at bedtime. - oatmeal lotion topically daily - omeprazole 40 mg daily - vitamin D 2000 international units daily - His Zirgan gel has been stopped per ophthalmology. DISCHARGE DIAGNOSES: 1. Acute influenza A. 2. Generalized malaise and weakness secondary to the flu. 3. Recent herpes zoster. 4. History of cerebrovascular accident (CVA). 5. Hypertension, hypertensive heart disease. 6. Hypokalemia, resolved. edited: 10/07/2018 1454 tkf [facility]
[2018-10-07] MEDS: ENOXAPARIN 40 MG/0.4 ML SYRINGE (J1650) SC SCH (09:55)
[2018-10-07] MEDS: CLOPIDOGREL 75 MG TAB PO SCH (09:56)
[2018-10-07] MEDS: predniSONE 20 MG TAB PO SCH (09:56)
[2018-10-07] MEDS: FUROSEMIDE 20 MG TAB PO SCH (09:56)
[2018-10-07] MEDS: VITAMIN D 1,000 INTERNATIONAL UNITS TABLET PO SCH (09:56)
[2018-10-07] MEDS: levETIRAcetam 250MG TABLET (KEPPRA) PO SCH (09:56)
[2018-10-07] MEDS: PANTOPRAZOLE 20 MG TAB PO SCH (09:56)
[2018-10-07] MEDS: OSELTAMIVIR PHOSPHATE 30MG CAPSULE PO SCH (09:56)
[2018-10-07] MEDS: MINOCYCLINE 50 MG CAP PO SCH (09:56)
[2018-10-07] MEDS: BENZONATATE 100 MG CAP PO SCH (09:56)
== END 2018-10-07 11:47 | disposition home health service (06) | DRG 194 ==
LOC: EDBD 09:39 → M ED 09:39 → M ED INP 13:14 → M MS5PR 15:20
PROVIDERS: ADMIT Family Medicine; ATTEND Family Medicine
DX: J10.00 Influenza due to other identified influenza virus with unspecified type of pneumonia (principal); B02.29 Other postherpetic nervous system involvement; B02.30 Zoster ocular disease, unspecified; C91.11 Chronic lymphocytic leukemia of B-cell type in remission; R53.81 Other malaise; E87.6 Hypokalemia; Z86.73 Personal history of transient ischemic attack (TIA), and cerebral infarction without residual deficits; Z79.899 Other long term (current) drug therapy; G40.909 Epilepsy, unspecified, not intractable, without status epilepticus

== ENCOUNTER → 2018-10-11 | Outpatient (REF) | payer MEDICARE ==
[~2018-10-11] MED LIST changes: +BENZ-18 PO; +GABA-1171 PO; +KLOR10TA76 PO; +LOTE0.5G OS; +OSEL30CA PO; +VENTAER IN; +ZIRG0.152 OU
[2018-10-11 12:33] LABS: HEMATOCRIT 39.8 % (42.0-52.0); HEMOGLOBIN 12.5 g/dl (13.5-17.5); MEAN CORPUSCULAR HEMOGLOBIN 27.9 pg (27.0-33.0); MEAN CORPUSCULAR HGB CONC 31.4 g/dl (32.0-36.5); MEAN CORPUSCULAR VOLUME 88.8 fl (80.0-96.0); PLATELET COUNT, AUTOMATED 322 10^3/uL (150-450); RED BLOOD COUNT 4.48 10^6/uL (4.30-6.10)
[2018-10-11 13:39] LABS: WHITE BLOOD COUNT 34.9 10^3/uL (4.0-10.0)
[2018-10-11 13:55] LABS: ANISOCYTOSIS 1+; ATYPICAL LYMPH 4 % (0-5); BASOPHILS 1 % (0-4); LYMPHOCYTES 66 % (16-52); MONOCYTES 12 % (0-8); NEUTROPHILS 17 % (35-75); PLATELET ESTIMATE NORMAL (NORMAL); POIKILOCYTOSIS 1+
== END ==
LOC: M SFHCADAM 08:34
PROVIDERS: ATTEND Family Medicine
DX: R60.9 Edema, unspecified (principal); I10 Essential (primary) hypertension

== ENCOUNTER → 2018-10-14 | Outpatient (REF) | payer MEDICARE ==
[~2018-10-14] MED LIST changes: -ALLO15TA PO; +ALLO300T2 PO; -ASPI1TAB PO; +ASPI81TA26 PO
[2018-10-14 13:39] LABS: BASO # 0.1 10^3/uL (0.0-0.2); BASO % 0.3 % (0.0-1.0); EOS # 0.6 10^3/uL (0.0-0.50); EOS % 2.6 % (0.0-3.0); HEMATOCRIT 38.2 % (42.0-52.0); LYMPH % 55.1 % (24.0-44.0); MEAN CORPUSCULAR HGB CONC 31.4 g/dl (32.0-36.5); MONO % 11.8 % (0.0-5.0); NEUTROPHILS % 29.9 % (36.0-66.0); PLATELET COUNT, AUTOMATED 360 10^3/uL (150-450); RED BLOOD COUNT 4.29 10^6/uL (4.30-6.10)
[2018-10-14 13:45] LABS: LYMPH # 12.8 10^3/uL (1.5-4.5); WHITE BLOOD COUNT 23.2 10^3/uL (4.0-10.0)
[2018-10-14 13:46] LABS: MONO # 2.8 10^3/uL (0.0-0.8)
[2018-10-14 15:41] LABS: ALBUMIN 3.5 GM/DL (3.2-5.2); ALT/SGPT 18 U/L (12-78); BILIRUBIN,TOTAL 0.5 MG/DL (0.2-1.0); BLOOD UREA NITROGEN 23 MG/DL (7-18); CALCIUM LEVEL 9.3 MG/DL (8.8-10.2); CARBON DIOXIDE LEVEL 31 MEQ/L (21-32); CHLORIDE LEVEL 103 MEQ/L (98-107); CREATININE FOR GFR 1.15 MG/DL (0.70-1.30); GLOMERULAR FILTRATION RATE > 60.0 (>42); GLUCOSE, FASTING 89 MG/DL (70-100); IMMUNOGLOBULIN A 82.7 MG/DL (70-400); IMMUNOGLOBULIN G 438 MG/DL (681-1648); IMMUNOGLOBULIN M 7.2 MG/DL (40-230); LDH LACTATE DEHYDROGENASE 298 U/L (87-241); POTASSIUM SERUM 4.6 MEQ/L (3.5-5.1); SODIUM LEVEL 139 MEQ/L (136-145); TOTAL PROTEIN 6.1 GM/DL (6.4-8.2)
== END ==
LOC: M LABDRWAD 12:13
PROVIDERS: ATTEND Internal Medicine Hematology & Oncology
DX: C91.11 Chronic lymphocytic leukemia of B-cell type in remission (principal); D72.829 Elevated white blood cell count, unspecified
CPT/HCPCS: 80053; 82784; 83615; 85027; G0463

== ENCOUNTER → 2018-10-31 | Outpatient (REF) | payer MEDICARE | LOC: M SFHCPLAZ 15:44 | PROVIDERS: ATTEND Dermatology | DX: D22.5 Melanocytic nevi of trunk (principal) ==

== ENCOUNTER → 2018-11-23 | Outpatient (CLI) | payer MEDICARE ==
--- NOTE | 2018-11-23 13:49 | REP ---
Bilateral lower extremity duplex venous ultrasound with reflux study. History: Nonpressure chronic ulcer right lower leg. Venous insufficiency/reflux. Findings: The deep veins are anechoic and fully compressible from the groin to the popliteal fossa on two-dimensional scanning bilaterally in the lower extremities. Color flow and spectral Doppler interrogation show no evidence to suggest deep venous thrombosis. There are multiple somewhat hypertrophied lymph nodes bilaterally in the groin. On the right the largest of these measure 3.4 x 1.2 x 2.5, 2.9 x 1.1 x 1.7, and 2.6 x 1.7 x 2.6 cm. The two largest nodes in the left groin measure 3.7 x 1.9 x 1.7, and 2.2 x 1.4 x 1.4 cm. Reflux findings: There is no evidence of venous reflux in either lower extremity superficial or deep venous system. The right greater saphenous vein measures 6.6 mm in AP dimension at the proximal saphenofemoral junction, 3.3 mm in AP dimension at midthigh, and 2.6 mm in AP dimension at the knee. The lesser saphenous vein measures 2.7 mm in AP dimension on the right. On the left at the proximal, mid and distal greater saphenous vein dimensions are 4.8, 2.9, and 1.5 mm respectively. The left lesser saphenous vein measures 2.4 mm. Impression: No evidence of reflux or DVT. Multiple hypertrophied groin lymph nodes bilaterally. Electronically Signed by Daquan Elizabeth MD 11/23/2018 04:02 P
== END ==
LOC: M RAD 09:45
PROVIDERS: ATTEND Surgery
DX: R59.0 Localized enlarged lymph nodes (principal); Z86.718 Personal history of other venous thrombosis and embolism

== ENCOUNTER → 2018-12-08 | Outpatient (REF) | payer MEDICARE ==
[~2018-12-08] MED LIST changes: +ZIRG0.152
== END ==
LOC: M SFHCPLAZ 17:33
PROVIDERS: ATTEND Dermatology
DX: L25.9 Unspecified contact dermatitis, unspecified cause (principal)
CPT/HCPCS: 11042; 11104; 88305; G0463

== ENCOUNTER 2018-12-14 07:58 | Emergency (ER) | payer MEDICARE ==
[~2018-12-14] VITALS: Ht 167.6 cm; Wt 72.7 kg
[~2018-12-14 07:58] MED LIST changes: -ZIRG0.152
[2018-12-14] MEDS ORDERED: ZIRG0.152 (08:08)
[2018-12-14] MEDS ORDERED: ASPIRIN 81 MG CHEW TABLET PO ONE (08:45)
--- NOTE | 2018-12-14 09:06 | REP ---
Portable chest, 08:40 a.m., single AP view, the patient is upright: Comparison is 10/05/2018. The lung patricia are clear. The cardiac size is normal. The chloe, mediastinum, and skeletal structures are unremarkable. Impression: Negative portable chest. There is no interval change. Electronically Signed by Yaniv Omalley MD 12/14/2018 08:57 A
[2018-12-14 09:27] LABS: HEMATOCRIT 37.6 % (42.0-52.0); MEAN CORPUSCULAR HEMOGLOBIN 29.3 pg (27.0-33.0); MEAN CORPUSCULAR HGB CONC 31.9 g/dl (32.0-36.5); MEAN CORPUSCULAR VOLUME 91.7 fl (80.0-96.0); PLATELET COUNT, AUTOMATED 230 10^3/uL (150-450)
[2018-12-14 09:28] LABS: WHITE BLOOD COUNT 18.1 10^3/uL (4.0-10.0)
[2018-12-14 09:54] LABS: ATYPICAL LYMPH 5 % (0-5); EOSINOPHILS 10 % (0-5); LYMPHOCYTES 49 % (16-52); MONOCYTES 6 % (0-8); NEUTROPHILS 30 % (35-75); PLATELET ESTIMATE NORMAL (NORMAL); SMUDGE CELLS 2+
[2018-12-14 09:55] LABS: ANISOCYTOSIS 1+; POIKILOCYTOSIS 1+
[2018-12-14 10:08] LABS: ALBUMIN 3.5 GM/DL (3.2-5.2); ALT/SGPT 22 U/L (12-78); BILIRUBIN,DIRECT 0.1 MG/DL (0.0-0.2); BILIRUBIN,TOTAL 0.5 MG/DL (0.2-1.0); BLOOD UREA NITROGEN 21 MG/DL (7-18); CALCIUM LEVEL 8.6 MG/DL (8.8-10.2); CARBON DIOXIDE LEVEL 29 MEQ/L (21-32); CHLORIDE LEVEL 103 MEQ/L (98-107); CPK CREATINE PHOSPHOKINASE 92 U/L (39-308); GLOMERULAR FILTRATION RATE 44.7 (>42); GLUCOSE, FASTING 94 MG/DL (70-100); LIPASE 105 U/L (73-393); POTASSIUM SERUM 4.1 MEQ/L (3.5-5.1); SODIUM LEVEL 141 MEQ/L (136-145); TOTAL PROTEIN 6.5 GM/DL (6.4-8.2); TROPONIN I < 0.02 NG/ML (< 0.10)
[2018-12-14 11:45] LABS: CPK CREATINE PHOSPHOKINASE 80 U/L (39-308); MB/CK RELATIVE INDEX 1.25 (< OR =4); TROPONIN I < 0.02 NG/ML (< 0.10)
[2018-12-14 12:30] VITALS: BP 138/80
--- NOTE | 2018-12-14 13:34 | ECGEPIP ---
Stationary ECG Study [facility] - ED Test Date: 2018-12-14 Pat Name: LIN KERR Department: Room: - Gender: M Credentialing Manager: JT : 1940 Requested By: Fabian Bond Order Number: [id number] Reading MD: Kavita Lr Measurements Intervals [place] Rate: 75 P: 56 PA: 171 QRS: 8 QRSD: 90 T: 46 QT: 396 QTc: 444 Interpretive Statements SINUS RHYTHM WITH SINUS ARRHYTHMIA DECREASED RATE 10/05/18 Electronically Signed On 12-14-2018 13:34:13 EDT by Kavita Lr
--- NOTE | 2018-12-14 13:40 | ECGEPIP ---
Stationary ECG Study [facility] - ED Test Date: 2018-12-14 Pat Name: LIN KERR Department: Room: - Gender: M Cook [place]: [place] : 1940 Requested By: Fabian Bond Order Number: [id number] Reading MD: Kavita Lr Measurements Intervals [place] Rate: 85 P: 68 [place]: 183 QRS: 22 QRSD: 93 T: 54 QT: 394 QTc: 469 Interpretive Statements SINUS RHYTHM INCREASED RATE 12/14/18 8:24 Electronically Signed On 12-14-2018 13:40:17 EDT by Kavita Lr
== END 2018-12-14 12:47 | disposition home or self-care (01) ==
LOC: M ED 07:58
DX: R07.89 Other chest pain (principal); Z86.73 Personal history of transient ischemic attack (TIA), and cerebral infarction without residual deficits; Z87.891 Personal history of nicotine dependence; Z79.899 Other long term (current) drug therapy

== ENCOUNTER → 2018-12-23 | Outpatient (REF) | payer MEDICARE ==
[~2018-12-23] MED LIST changes: +ZIRG0.152
[2018-12-23 13:04] LABS: HEMATOCRIT 39.8 % (42.0-52.0); HEMOGLOBIN 12.8 g/dl (13.5-17.5); MEAN CORPUSCULAR HEMOGLOBIN 28.6 pg (27.0-33.0); MEAN CORPUSCULAR HGB CONC 32.2 g/dl (32.0-36.5); PLATELET COUNT, AUTOMATED 204 10^3/uL (150-450); RED BLOOD COUNT 4.47 10^6/uL (4.30-6.10)
[2018-12-23 13:06] LABS: WHITE BLOOD COUNT 19.3 10^3/uL (4.0-10.0)
[2018-12-23 13:15] LABS: LDH LACTATE DEHYDROGENASE 435 U/L (87-241); URIC ACID 8.5 MG/DL (3.5-7.2)
[2018-12-23 13:17] LABS: HEPATITIS B SURFACE ANTIBODY NEGATIVE (POSITIVE)
[2018-12-23 13:28] LABS: HEPATITIS B SURFACE ANTIGEN NEGATIVE (NEGATIVE)
[2018-12-23 13:39] LABS: ATYPICAL LYMPH 1 % (0-5); EOSINOPHILS 13 % (0-5); LYMPHOCYTES 54 % (16-52); MONOCYTES 1 % (0-8); NEUTROPHILS 31 % (35-75)
[2018-12-23 13:40] LABS: PLATELET ESTIMATE NORMAL (NORMAL); SMUDGE CELLS 1+
[2018-12-23 13:57] LABS: HIV 1&2 SCREEN CENTAUR NEGATIVE (NEGATIVE)
== END ==
LOC: M SFHCPLAZ 09:29
PROVIDERS: ATTEND Dermatology
DX: L29.9 Pruritus, unspecified (principal)

== ENCOUNTER → 2019-04-05 | Outpatient (REF) | payer MEDICARE ==
[~2019-04-05] MED LIST changes: +DOXE10CA PO; +VALA500T5 PO
== END ==
LOC: M SFHCADAM 10:59
PROVIDERS: ATTEND Physician Assistant
DX: R60.9 Edema, unspecified (principal); L03.313 Cellulitis of chest wall; I10 Essential (primary) hypertension; R41.3 Other amnesia; Z53.8 Procedure and treatment not carried out for other reasons

== ENCOUNTER → 2019-04-07 | Outpatient (CLI) | payer MEDICARE ==
[2019-04-07 08:59] LABS: HEMATOCRIT 36.8 % (42.0-52.0); MEAN CORPUSCULAR HEMOGLOBIN 29.9 pg (27.0-33.0); MEAN CORPUSCULAR HGB CONC 32.6 g/dl (32.0-36.5); MEAN CORPUSCULAR VOLUME 91.5 fl (80.0-96.0); PLATELET COUNT, AUTOMATED 144 10^3/uL (150-450); RED BLOOD COUNT 4.02 10^6/uL (4.30-6.10)
[2019-04-07 12:18] LABS: ALBUMIN 3.9 GM/DL (3.2-5.2); BILIRUBIN,TOTAL 0.5 MG/DL (0.2-1.0); CALCIUM LEVEL 8.1 MG/DL (8.8-10.2); CREATININE FOR GFR 1.76 MG/DL (0.70-1.30); FOLATE 18.1 NG/ML; GLOMERULAR FILTRATION RATE 40.1 (>42); POTASSIUM SERUM 3.6 MEQ/L (3.5-5.1); TOTAL PROTEIN 6.7 GM/DL (6.4-8.2)
== END ==
LOC: M LAB 08:25
PROVIDERS: ATTEND Physician Assistant
DX: R60.9 Edema, unspecified (principal); L03.313 Cellulitis of chest wall; R41.3 Other amnesia

== ENCOUNTER → 2019-04-14 | Outpatient (REF) | payer MEDICARE ==
[2019-04-14 12:37] LABS: HEMATOCRIT 35.7 % (42.0-52.0); HEMOGLOBIN 11.5 g/dl (13.5-17.5); MEAN CORPUSCULAR HEMOGLOBIN 29.7 pg (27.0-33.0); MEAN CORPUSCULAR HGB CONC 32.2 g/dl (32.0-36.5); MEAN CORPUSCULAR VOLUME 92.2 fl (80.0-96.0); PLATELET COUNT, AUTOMATED 205 10^3/uL (150-450); RED BLOOD COUNT 3.87 10^6/uL (4.30-6.10)
[2019-04-14 12:48] LABS: BILIRUBIN,TOTAL 0.7 MG/DL (0.2-1.0); CALCIUM LEVEL 8.5 MG/DL (8.8-10.2); CREATININE FOR GFR 1.52 MG/DL (0.70-1.30); GLOMERULAR FILTRATION RATE 47.5 (>42); POTASSIUM SERUM 3.7 MEQ/L (3.5-5.1); TOTAL PROTEIN 6.5 GM/DL (6.4-8.2)
[2019-04-14 14:06] LABS: WHITE BLOOD COUNT 36.6 10^3/uL (4.0-10.0)
[2019-04-14 14:09] LABS: BASOPHILS 2 % (0-1); EOSINOPHILS 1 % (0-3); LYMPHOCYTES 77 % (16-44); MONOCYTES 1 % (0-5); NEUTROPHILS 19 % (28-66); PLATELET ESTIMATE NORMAL (NORMAL)
== END ==
LOC: M SFHCADAM 08:49
PROVIDERS: ATTEND Physician Assistant
DX: C91.90 Lymphoid leukemia, unspecified not having achieved remission (principal); R60.9 Edema, unspecified
CPT/HCPCS: 80053; 85025; G0463

== ENCOUNTER → 2019-05-08 | Outpatient (REF) | payer MEDICARE ==
[~2019-05-08] MED LIST changes: +ACET-683 PO; +AMOX875T2 PO; -DOXY100T16 PO; +DOXY100T27 PO; -OMEP40CA2 PO; +OMEP40CA97 PO; +PLAV1TAB2 PO; +SHIN50IN IM
== END ==
LOC: M SFHCPLAZ 11:43
PROVIDERS: ATTEND Dermatology
DX: L30.9 Dermatitis, unspecified (principal)

== ENCOUNTER → 2019-06-01 | Outpatient (CLI) | payer MEDICARE ==
[~2019-06-01] MED LIST changes: -ACET-683 PO; -AMOX875T2 PO; -PLAV1TAB2 PO; -SHIN50IN IM
--- NOTE | 2019-06-01 10:01 | REP ---
Clinical: Screening for abdominal aortic aneurysm. Technique: Real time pope scale ultrasound examination using curved array transducer. Findings: Abdominal aorta demonstrates moderate atheromatous plaquing along with areas of ectasia without evidence for aneurysm. No periaortic fluid collections are identified. Proximal aorta 2.2 x 2.9 cm. Mid aorta (renal artery level) 2.0 x 2.5 cm. Mid aorta 2.5 x 2.6 cm. Distal aorta 2.2 x 2 point a cm. Right common iliac artery 1.7 cm maximal diameter. Left common iliac artery 1.9 cm maximal diameter. Impression: Atheromatous plaquing and aortic ectasia without evidence for abdominal aortic aneurysm. Electronically Signed by Isra Lerma MD 06/01/2019 09:53 A
== END ==
LOC: M RAD 08:44
PROVIDERS: ATTEND Family Medicine
DX: I77.811 Abdominal aortic ectasia (principal); I70.0 Atherosclerosis of aorta

== ENCOUNTER → 2019-06-05 | Outpatient (REF) | payer MEDICARE ==
[~2019-06-05] MED LIST changes: +ACET-683 PO; +AMOX875T2 PO; +PLAV1TAB2 PO; +SHIN50IN IM
== END ==
LOC: M SFHCPLAZ 13:07
PROVIDERS: ATTEND Dermatology
DX: D04.62 Carcinoma in situ of skin of left upper limb, including shoulder (principal); L98.9 Disorder of the skin and subcutaneous tissue, unspecified

== ENCOUNTER 2019-06-12 11:41 | Emergency (ER) | payer MEDICARE ==
[~2019-06-12] VITALS: Ht 170.2 cm; Wt 75.0 kg
[~2019-06-12 11:41] MED LIST changes: -ACET-683 PO; -AMOX875T2 PO; -PLAV1TAB2 PO; -SHIN50IN IM
[2019-06-12] MEDS ORDERED: MORPHINE 2 MG/ML 1ML VIAL (J2270) IV ONE (12:30)
--- NOTE | 2019-06-12 13:27 | REP ---
Soft-tissue ultrasound left upper extremity. History: Swelling in the left upper extremity. Rule out abscess. Findings: Scanning of the anterior aspect of the left forearm and wrist area in the region of the swelling and redness shows soft tissue edema diffusely. No fluid collection is appreciated. Impression: Diffuse soft tissue edema seen in the subcutaneous region. No abnormal fluid collection seen. Electronically Signed by Daquan Elizabeth MD 06/12/2019 01:19 P
[2019-06-12 13:53] LABS: HEMATOCRIT 38.8 % (42.0-52.0); HEMOGLOBIN 12.2 g/dl (13.5-17.5); MEAN CORPUSCULAR HGB CONC 31.4 g/dl (32.0-36.5); MEAN CORPUSCULAR VOLUME 95.6 fl (80.0-96.0); RED BLOOD COUNT 4.06 10^6/uL (4.30-6.10)
[2019-06-12 14:25] LABS: CALCIUM LEVEL 8.3 MG/DL (8.8-10.2); CREATININE FOR GFR 1.61 MG/DL (0.70-1.30); GLOMERULAR FILTRATION RATE 44.4 (>42); POTASSIUM SERUM 3.6 MEQ/L (3.5-5.1)
[2019-06-12 14:28] LABS: ATYPICAL LYMPH 3 % (0-5); EOSINOPHILS 2 % (0-3); LYMPHOCYTES 71 % (16-44); MONOCYTES 1 % (0-5); NEUTROPHILS 23 % (28-66)
[2019-06-12 14:29] LABS: ANISOCYTOSIS 1+; OVALOCYTES 1+; PLATELET ESTIMATE NORMAL (NORMAL); POIKILOCYTOSIS 1+
[2019-06-12 14:30] LABS: PLATELET COUNT, AUTOMATED 153 10^3/uL (150-450)
[2019-06-12 15:02] VITALS: BP 137/82
== END 2019-06-12 15:05 | disposition home or self-care (01) ==
LOC: M ED 11:41
DX: R22.32 Localized swelling, mass and lump, left upper limb (principal); C91.10 Chronic lymphocytic leukemia of B-cell type not having achieved remission; Z79.51 Long term (current) use of inhaled steroids; Z79.899 Other long term (current) drug therapy; Z88.8 Allergy status to other drugs, medicaments and biological substances
CPT/HCPCS: 76882; 80048; 83605; 85025; 96374; 99284; J2270

== ENCOUNTER 2019-06-29 01:23 | Emergency (ER) | payer MEDICARE ==
[~2019-06-29] VITALS: Ht 170.2 cm; Wt 75.0 kg
[2019-06-29] MEDS ORDERED: AMOX875T2 PO (01:53)
[2019-06-29] MEDS ORDERED: SHIN50IN IM (01:53)
[2019-06-29] MEDS ORDERED: PLAV1TAB2 PO (01:58)
[2019-06-29 02:20] VITALS: BP 174/81
[2019-06-29] MEDS ORDERED: ACETAMINOPHEN TAB 650MG DOSE (2X325MG) PO ONE (02:30)
[2019-06-29] MEDS ORDERED: ACET-683 PO (02:44)
== END 2019-06-29 03:15 | disposition home or self-care (01) ==
LOC: M ED 01:23
DX: R59.0 Localized enlarged lymph nodes (principal); Z79.2 Long term (current) use of antibiotics; Z79.51 Long term (current) use of inhaled steroids

== ENCOUNTER → 2019-07-03 | Outpatient (CLI) | payer MEDICARE ==
[~2019-07-03] MED LIST changes: +ACET-683 PO; +AMOX875T2 PO; +PLAV1TAB2 PO; +SHIN50IN IM
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
== END ==
LOC: M PAIN 13:30
PROVIDERS: ATTEND Nurse Practitioner Family
DX: M54.6 Pain in thoracic spine (principal); M54.5 Low back pain; G89.29 Other chronic pain; I10 Essential (primary) hypertension; G40.909 Epilepsy, unspecified, not intractable, without status epilepticus; F03.90 Unspecified dementia, unspecified severity, without behavioral disturbance, psychotic disturbance, mood disturbance, and anxiety; Z96.653 Presence of artificial knee joint, bilateral; Z87.891 Personal history of nicotine dependence; Z88.8 Allergy status to other drugs, medicaments and biological substances; Z79.01 Long term (current) use of anticoagulants; Z79.899 Other long term (current) drug therapy

== ENCOUNTER → 2019-09-05 | Outpatient (REF) | payer MEDICARE ==
[~2019-09-05] MED LIST changes: +ALLO100T PO; +D-20TAB PO; +DUPI300I SC; +TRID0.1C TOP
== END ==
LOC: M LAB REF 09:39
PROVIDERS: ATTEND Dermatology
DX: D04.5 Carcinoma in situ of skin of trunk (principal)

== ENCOUNTER 2019-09-11 11:42 | Emergency (ER) | payer MEDICARE ==
[~2019-09-11] VITALS: Ht 175.3 cm; Wt 75.5 kg
[~2019-09-11 11:42] MED LIST changes: -MONT10TA2 PO; +MONT10TA4 PO
--- NOTE | 2019-09-11 12:24 | REP ---
Clinical: Trauma. Technique: Axial noncontrast images from the skull base to the thoracic inlet with coronal and sagittal re-formations. Comparison: 08/14/2018 Findings: The patient is status post anterior fixation at C3 through C7 with evidence for chronic advanced degenerative changes. Alignment is maintained. Spinal canal is patent. Posterior elements and spinous processes are intact. There is no evidence for acute fracture / compression injury or subluxation. Findings are chronic and stable as compared to prior examination. Impression: Advanced degenerative spondylosis and evidence for prior anterior fixation. Findings remain stable and there is no evidence for acute fracture / compression injury or subluxation. Electronically Signed by Isra Lerma MD 09/11/2019 12:16 P
[2019-09-11 12:30] LABS: HEMATOCRIT 36.3 % (42.0-52.0); HEMOGLOBIN 11.4 g/dl (13.5-17.5); MEAN CORPUSCULAR HEMOGLOBIN 28.7 pg (27.0-33.0); MEAN CORPUSCULAR HGB CONC 31.4 g/dl (32.0-36.5); MEAN CORPUSCULAR VOLUME 91.4 fl (80.0-96.0); PLATELET COUNT, AUTOMATED 163 10^3/uL (150-450); RED BLOOD COUNT 3.97 10^6/uL (4.30-6.10)
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
[2019-09-11 12:47] LABS: WHITE BLOOD COUNT 42.3 10^3/uL (4.0-10.0)
[2019-09-11 12:50] LABS: ATYPICAL LYMPH 6 % (0-5); EOSINOPHILS 2 % (0-3); LYMPHOCYTES 75 % (16-44); MONOCYTES 5 % (0-5); NEUTROPHILS 12 % (28-66); PLATELET ESTIMATE NORMAL (NORMAL)
[2019-09-11 12:51] LABS: ANISOCYTOSIS 1+; OVALOCYTES 1+
[2019-09-11 12:52] LABS: POIKILOCYTOSIS 1+
[2019-09-11 12:57] LABS: CALCIUM LEVEL 8.9 MG/DL (8.8-10.2); CREATININE FOR GFR 1.81 MG/DL (0.70-1.30); GLOMERULAR FILTRATION RATE 38.8 (>42); POTASSIUM SERUM 3.4 MEQ/L (3.5-5.1)
[2019-09-11] MEDS ORDERED: dexameTHASONE 20 MG/5 ML VIAL (J1100) IV ONE (13:15)
[2019-09-11] MEDS ORDERED: NS 1,000 ML IV SCH (13:15)
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
[2019-09-11 14:33] LABS: INR 0.99; PROTHROMBIN TIME 12.8 SECONDS (11.8-14.0)
[2019-09-11 14:34] LABS: PARTIAL THROMBOPLASTIN TIME 25.1 SECONDS (25.0-38.4)
[2019-09-11 14:45] VITALS: BP 177/92
[2019-09-11] MEDS ORDERED: NAPR-837 PO (15:12)
[2019-09-18] MEDS ORDERED: ZYLO300T6 PO (09:28)
== END 2019-09-11 17:17 | disposition home or self-care (01) ==
LOC: M ED 11:42
DX: S09.90XA Unspecified injury of head, initial encounter (principal); T14.8XXA Other injury of unspecified body region, initial encounter; W01.0XXA Fall on same level from slipping, tripping and stumbling without subsequent striking against object, initial encounter; Y92.018 Other place in single-family (private) house as the place of occurrence of the external cause; K44.9 Diaphragmatic hernia without obstruction or gangrene; I25.10 Atherosclerotic heart disease of native coronary artery without angina pectoris; G89.29 Other chronic pain; K21.9 Gastro-esophageal reflux disease without esophagitis; N40.0 Benign prostatic hyperplasia without lower urinary tract symptoms; Z79.899 Other long term (current) drug therapy; Z88.8 Allergy status to other drugs, medicaments and biological substances
CPT/HCPCS: 70450; 72125; 72128; 72131; 73502; 80048; 85025; 85610; 85730; 96374; 99285; J1100

== ENCOUNTER → 2019-10-05 | Outpatient (CLI) | payer MEDICARE ==
[~2019-10-05] MED LIST changes: +MAG400TA PO; +MAGN400T2 PO; +METO1TAB7 PO; +NAPR-837 PO; +POTA20TA6 PO; +PROAAER10 INH; +TOPR50TA PO; +VALT500T PO; +VITA1CHW7 PO
--- NOTE | 2019-10-05 10:41 | REP ---
RIGHT KNEE, FIVE VIEWS: Five views, right knee performed. No acute fracture or dislocation is seen. There is a total knee prosthesis in good position. There are no obvious signs of loosening or infection. Vascular calcifications are seen posteriorly. IMPRESSION: Total knee prosthesis in good position with no definite signs of loosening or infection. No fracture or dislocation. Electronically Signed by Yaniv Stark MD 10/05/2019 07:44 P
== END ==
LOC: M ADAMS 08:49
PROVIDERS: ATTEND Physician Assistant
DX: M25.561 Pain in right knee (principal); Z96.651 Presence of right artificial knee joint

== ENCOUNTER → 2019-10-10 | Outpatient (REF) | payer MEDICARE | LOC: M LAB REF 18:35 | PROVIDERS: ATTEND Dermatology | DX: D04.5 Carcinoma in situ of skin of trunk (principal) ==

== ENCOUNTER → 2019-10-12 | Outpatient (CLI) | payer MEDICARE ==
[~2019-10-12] MED LIST changes: -MAG400TA PO; -MAGN400T2 PO; -METO1TAB7 PO; -POTA20TA6 PO; -PROAAER10 INH; -TOPR50TA PO
--- NOTE | 2019-10-12 16:33 | REP ---
Duplex extremity venous ultrasound: Left lower extremity. History: Left lower extremity swelling and calf pain. Rule out DVT. Findings: The deep veins are anechoic and fully compressible from the groin to the popliteal fossa in the left lower extremity. Color flow imaging is homogeneous. Spectral Doppler interrogation demonstrates intact respiratory variation in flow and normal manual augmentation of flow. There is no evidence of deep vein thrombosis. Impression: Negative left lower extremity duplex venous ultrasound. No evidence of deep vein thrombosis. Electronically Signed by Daquan Elizabeth MD 10/12/2019 04:25 P
== END ==
LOC: M RAD 15:45
PROVIDERS: ATTEND Physician Assistant
DX: C91.90 Lymphoid leukemia, unspecified not having achieved remission (principal); M79.89 Other specified soft tissue disorders

== ENCOUNTER → 2019-10-13 | Outpatient (CLI) | payer MEDICARE ==
[~2019-10-13] MED LIST changes: +LIDOCAINE 1% MDV 20ML VIAL As Ordered ONE; +MIDAZOLAM INJ 2 MG/2 ML VIAL (J2250) As Ordered ONE; +PROAAER10 INH; +ceFAZolin 1GM INJ (J0690 PER 500MG) As Ordered ONE; +diphenhydrAMINE INJ 50MG/ML VIAL (J1200) As Ordered ONE; +fentaNYL 100 MCG/2 ML INJECTION (J3010) As Ordered ONE
--- NOTE | 2019-10-13 16:29 | REP ---
IR Ultrasound and fluoroscopy-guided port placement. IR Ultrasound of the neck. Clinical information: leukemia. Physician: Dr. Rodriguez. Procedure: The patient was advised of the benefits, risks, and alternatives of the procedure and informed consent was obtained. A time-out was performed with verification of the patient's name, MRN, site of procedure and type of procedure to be performed. The patient was positioned in the supine position on the angiographic table. The site was prepped and draped in the usual sterile fashion. Moderate sedation was not performed. The physician spent 45 minutes of continuous face to face time with the patient. Ultrasound of the neck reveals a patent and compressible right internal jugular vein. The neck and anterior chest wall were anesthetized with lidocaine. The right internal jugular vein was accessed using a microintroducer needle under ultrasound guidance, via a lateral approach. An 018 wire was advanced into the superior vena cava, the needle was removed and a microsheath was placed. An Amplatz wire was then passed into the inferior vena cava. An incision at the internal jugular vein access site and anterior chest wall were made using a scalpel. An incision was made at the anterior chest wall. A small pocket was created using a combination of blunt and sharp dissection. A tunneling device was then used to pass the catheter from the pocket to the neck puncture site. An 8-Maltese Angio dynamics Smart power port was then positioned in the pocket. The catheter was then measured and cut. The introducer sheath was exchanged for a peel-away sheath. The catheter was passed through the peel-away sheath into the internal jugular vein and the peel-away sheath was removed. The port tip was positioned at the cavoatrial junction. The port was then accessed with a Melchor needle. The port flushes and aspirates well. The puncture site in the neck was closed. The chest wall incision was then closed with 2-0 Vicryl and 4-0 Monocryl. Glue and Steri-Strips were applied. A sterile dressing was then applied. The patient tolerated the procedure well and was returned to the PRU in stable condition. Estimated blood loss: <5 ml. Complications: None. Conclusion: 1. Successful placement of an 8-Maltese Angio dynamics Smart power port via the right internal jugular vein. The port is ready for immediate use. 2. Patient to follow up in IR clinic in 2 weeks. Thank you for this referral. Electronically Signed by Valerie Rodriguez MD 10/13/2019 04:27 P
--- NOTE | 2019-10-13 16:30 | IRHP ---
[facility] IR Pre-Procedure H & P General Date of Service: Oct 13, 2019 Procedure: Same Day Surgery Interval History and Physical I have seen the patient and reviewed last H & P performed within 30 days. There is no significant interval change. History of Present Illness Chief Complaint The patient is a 79-year-old male admitted with a reason for visit of CLL. PRE-PROCEDURE DIAGNOSIS: CLL HEART: normal rate LUNGS: normal breathing at rest. ASA Classification ASA Classification: III-Severe systemic dis. Mallampati Score: II NPO: Yes Problems with prior sedation: No Obstructive Sleep Apnea: No Plan moderate sedation Allergies Coded Allergies: ciclopirox (Verified Allergy, Intermediate, rash, hives, 06/12/19) gabapentin (Verified Allergy, Intermediate, edema, 06/12/19) Home Medications Scheduled Acetaminophen (Acetaminophen), 1 TAB PO Q6H Albuterol Sulfate (Ventolin Hfa), 108 MCG IN Q6H Allopurinol (Zyloprim), 1 TAB PO DAILY Atorvastatin Calcium (Atorvastatin Calcium), 80 MG PO QHS, (Reported) Cholecalciferol (Vitamin D3) (Vitamin D3), 2,000 UNIT PO DAILY, (Reported) Clopidogrel Bisulfate (Plavix), 75 MG PO DAILY, (Reported) Doxepin HCl (Doxepin HCl), 10 MG PO QPM, (Reported) Furosemide (Furosemide), 30 MG PO DAILY, (Reported) Levetiracetam (Keppra), 500 MG PO BID, (Reported) Loteprednol Etabonate (Lotemax), 1 DROP OS BID, (Reported) Montelukast Sodium (Montelukast Sodium), 10 MG PO QHS, (Reported) Naproxen (Naprosyn), 500 MG PO BID Roberta-3/Dha/Epa/Fish Oil (Roberta 3 500 Softgel), 500 CAP PO DAILY, (Reported) Omeprazole (Omeprazole), 40 MG PO DAILY, (Reported) Triamcinolone Acetonide (Triderm), 1 APLCT TOP BID, (Reported) Valacyclovir HCl (Valtrex), 500 MG PO BID, (Reported) [Oatmeal Lotion], 1 APLCT TOP DAILY, (Reported) VS, I&O, 24H, Fishbone Vital Signs/I&O Vital Signs Date Time Temp Pulse Resp B/P (MAP) Pulse Ox O2 Delivery O2 Flow Rate FiO2 10/13/19 16:21 104 16 100 Nasal Cannula 2 10/13/19 13:45 97.5 DARLENE LAMAR MD Oct 13, 2019 16:30
--- NOTE | 2019-10-13 16:32 | POST-OPPD ---
Postoperative Procedure Note Date Of Procedure: Oct 13, 2019 Time Of Procedure: 16:30 PREOPERATIVE DIAGNOSIS: CLL POSTOPERATIVE DIAGNOSIS: same FINDINGS: patent right IJ PROCEDURE: right side port SURGEON: christa ANESTHESIA: local ESTIMATED BLOOD LOSS: < 5 ml COMPLICATIONS: none POSTOPERATIVE CONDITION: stable DARLENE LAMAR MD Oct 13, 2019 16:32
--- NOTE | 2019-10-13 18:09 | IRMSE ---
[facility] IR Moderate Sedation Eval. Date and Time Date: Oct 13, 2019 Time: 16:49 ASA Classification ASA Classification: II-Mild systemic disease, III-Severe systemic dis. Mallampati Score: II NPO: Yes Obstructive Sleep Apnea: No Interval Plan: moderate sedation DARLENE LAMAR MD Oct 13, 2019 18:09
--- NOTE | 2019-10-13 18:11 | POST-OPPD ---
Postoperative Procedure Note Date Of Procedure: Oct 13, 2019 Time Of Procedure: 18:09 PREOPERATIVE DIAGNOSIS: left Renal hemorrhage POSTOPERATIVE DIAGNOSIS: same FINDINGS: No active extravasation on aortogram or selective main renal, accessory renal and lumbar artery angiograms. PROCEDURE: angiogram SURGEON: christa ANESTHESIA: mod sed ESTIMATED BLOOD LOSS: < 5 ml COMPLICATIONS: none POSTOPERATIVE CONDITION: stable DARLENE LAMAR MD Oct 13, 2019 18:11
[2019-10-13 18:15] VITALS: BP 108/60
== END ==
LOC: M IRPRO 12:46
PROVIDERS: ATTEND Radiology Diagnostic Radiology
DX: C91.10 Chronic lymphocytic leukemia of B-cell type not having achieved remission (principal); Z88.8 Allergy status to other drugs, medicaments and biological substances; Z79.899 Other long term (current) drug therapy
CPT/HCPCS: 36561; 99152; 99153; C1769; C1788; C1894; J0690; J1642; J1644; J2250; J3010

== ENCOUNTER 2019-10-15 14:35 | Inpatient (IN) | payer MEDICARE ==
[~2019-10-15] VITALS: Ht 170.2 cm; Wt 81.4 kg
[~2019-10-15 14:35] MED LIST changes: -LIDOCAINE 1% MDV 20ML VIAL As Ordered ONE; -MIDAZOLAM INJ 2 MG/2 ML VIAL (J2250) As Ordered ONE; -PROAAER10 INH; -ceFAZolin 1GM INJ (J0690 PER 500MG) As Ordered ONE; -diphenhydrAMINE INJ 50MG/ML VIAL (J1200) As Ordered ONE; -fentaNYL 100 MCG/2 ML INJECTION (J3010) As Ordered ONE
[2019-10-15] MEDS ORDERED: NS 1,000 ML IV ONE ×2 (15:30→19:30)
[2019-10-15 15:42] LABS: BASO % 0.2 % (0.0-1.0); EOS # 0.5 10^3/uL (0.0-0.5); EOS % 3.8 % (0.0-3.0); HEMATOCRIT 35.2 % (42.0-52.0); HEMOGLOBIN 11.4 g/dl (13.5-17.5); LYMPH # 0.3 10^3/uL (1.5-5.0); LYMPH % 2.2 % (24.0-44.0); MEAN CORPUSCULAR HEMOGLOBIN 29.5 pg (27.0-33.0); MEAN CORPUSCULAR HGB CONC 32.4 g/dl (32.0-36.5); MONO # 0.5 10^3/uL (0.0-0.8); MONO % 3.6 % (0.0-5.0); NEUTROPHILS # 11.8 10^3/uL (1.5-8.5); NEUTROPHILS % 89.5 % (36.0-66.0); PLATELET COUNT, AUTOMATED 105 10^3/uL (150-450); RED BLOOD COUNT 3.87 10^6/uL (4.30-6.10); WHITE BLOOD COUNT 13.2 10^3/uL (4.0-10.0)
[2019-10-15 15:52] LABS: INR 1.05; PROTHROMBIN TIME 13.4 SECONDS (11.8-14.0)
[2019-10-15 15:53] LABS: PARTIAL THROMBOPLASTIN TIME 31.9 SECONDS (25.0-38.4)
[2019-10-15 16:12] LABS: ALBUMIN 2.9 GM/DL (3.2-5.2); BILIRUBIN,DIRECT 0.1 MG/DL (0.0-0.2); BILIRUBIN,TOTAL 0.5 MG/DL (0.2-1.0); CALCIUM LEVEL 7.8 MG/DL (8.8-10.2); CK-MB VALUE MASS 3.4 NG/ML (<3.6); CREATININE FOR GFR 3.12 MG/DL (0.70-1.30); GLOMERULAR FILTRATION RATE 20.6 (>42); MB/CK RELATIVE INDEX 0.71 (< OR =4); POTASSIUM SERUM 2.8 MEQ/L (3.5-5.1); TOTAL PROTEIN 5.7 GM/DL (6.4-8.2); TROPONIN I 0.22 NG/ML (< 0.10)
[2019-10-15] MEDS ORDERED: DIGOXIN INJ 0.5 MG/2 ML AMP (J1160) IV STA ×2 (16:27→18:04)
[2019-10-15] MEDS ORDERED: POTASSIUM CHLORIDE 10 MEQ SR TABLET PO ONE ×2 (16:30→20:00)
[2019-10-15] MEDS ORDERED: NS 1,000 ML IV SCH ×2 (16:30→19:30)
[2019-10-15] MEDS ORDERED: KCL 10MEQ/100ML SWI (KRUN) 10 MEQ in IV 1 EA IV ONE (17:00)
--- NOTE | 2019-10-15 17:22 | REPVR ---
PROCEDURE INFORMATION: Exam: US Duplex Right Upper Extremity Veins, Limited Exam date and time: 10/15/2019 5:00 PM Age: 79 years old Clinical indication: Pain; Arm, upper; Right; Additional info: Right upper arm pain; S/P right port placement TECHNIQUE: Imaging protocol: Real-time Duplex ultrasound of the Right Upper Extremity with 2-D pope scale, color Doppler flow and spectral waveform analysis with image documentation. Limited exam focused on the right upper extremity veins. COMPARISON: No relevant prior studies available. FINDINGS: Right deep veins: Unremarkable. Axillary and brachial veins are patent throughout without thrombus. Normal Doppler waveforms. Normal compressibility and/or augmentation response. Visualized internal jugular and subclavian veins are patent. Right superficial veins: Unremarkable. Visualized cephalic and basilic veins are patent without thrombus. Soft tissues: Unremarkable. IMPRESSION: No DVT of the right upper extremity. Electronically signed by: Troy Dunn On 10/15/2019 17:22:06 PM
[2019-10-15] MEDS ORDERED: ENOXAPARIN 100MG/1ML SYRINGE (J1650 PER 10MG) SC SCH (18:45)
[2019-10-15] MEDS ORDERED: FURO40TA2 PO (18:57)
[2019-10-15] MEDS ORDERED: PROAAER10 INH (18:57)
[2019-10-15] MEDS: NS 1,000 ML IV SCH (19:52)
[2019-10-15] MEDS ORDERED: ALBUTEROL 90 MCG/ACT 8GM HFA INHALER INH PRN (20:15)
[2019-10-15 20:21] LABS: CK-MB VALUE MASS 3.6 NG/ML (<3.6); MB/CK RELATIVE INDEX 0.77 (< OR =4); TROPONIN I 0.49 NG/ML (< 0.10)
[2019-10-15 20:30] LABS: MAGNESIUM LEVEL 1.6 MG/DL (1.8-2.4); PHOSPHORUS LEVEL 2.9 MG/DL (2.5-4.9); POTASSIUM SERUM 4.7 MEQ/L (3.5-5.1); URIC ACID 5.4 MG/DL (3.5-7.2)
[2019-10-15] MEDS: METOPROLOL TART 25 MG TABLET PO SCH (21:00)
[2019-10-15] MEDS: MONTELUKAST 10 MG TAB PO SCH (21:00)
[2019-10-15] MEDS ORDERED: HEPARIN SOD (PORCINE) 5000UNITS/ML VIAL (J1644 PER 1000UNITS) SQ SCH (21:00)
[2019-10-15] MEDS: TRIAMCINOLONE ACET 0.1% CREAM 15 GM TOP SCH (21:00)
[2019-10-15 21:30] VITALS: BP 101/56
[2019-10-15 21:46] LABS: CREATININE,RANDOM URINE 63.7 MG/DL; SODIUM,RANDOM URINE 13 MEQ/L
[2019-10-15] MEDS: DOXEPIN 10 MG CAP PO SCH (21:47)
[2019-10-15] MEDS: levETIRAcetam 250MG TABLET (KEPPRA) PO SCH (21:48)
[2019-10-15] MEDS: ATORVASTATIN 20 MG TAB PO SCH (21:48)
[2019-10-15 22:00] VITALS: BP 105/65
--- NOTE | 2019-10-15 22:05 | HPE ---
DATE OF ADMISSION: 10/15/2019 TIME: Approximately 6:30 p.m. CHIEF COMPLAINT: Generalized weakness, nausea, vomiting, and diarrhea. HISTORY OF PRESENT ILLNESS: Mr. Mcrae is a 79-year-old gentleman whom has a history of chronic lymphocytic leukemia, he currently follows with Dr. Cole and had recently been resumed on chemotherapy. He currently, I believe, has completed, or he is due to complete, his second cycle of chlorambucil, as well as obinutuzumab. Patient lives alone but he has a caregiver named Sea. Today, the caregiver had gone to check on Mr. Mcrae and found him to be quite weak and he was incontinent and he was experiencing nausea and vomiting as well as diarrhea. The patient had a Mediport placed on this past Wednesday and also had been complaining of right upper extremity arm pain. He was brought to the emergency room where he was noted to be quite hypokalemic with a potassium of 2.8. In addition, he was found to be in atrial fibrillation with rapid ventricular response (RVR) with a heart rate in the 140s. The patient had some soft blood pressure. His creatinine, which in review of his lab appears to run anywhere form 1.6 to 1.8 mg/dl, was found to be 3.1. He was gently hydrated. He could not be started on an IV Cardizem drip or bolus. They did discuss the case with Dr. Barker of cardiology who recommended giving him intravenous digoxin, two doses. After receiving this, the patient's heart rate is still in the 130s but his blood pressure has improved some. There is no documentation of urine output at this time. The patient is alert and oriented times three and able to provide adequate history. Since being in the emergency department (ED), he has had loose stools, he has not experienced any nausea or vomiting. At this point in time, he is complaining of just right upper extremity pain. His EKG shows atrial fibrillation with RVR. His initial troponin is slightly elevated at 0.22 with a mildly elevated CPK in the setting of recent right anterior chest wall port placement. Due to his debilitated state, worsening renal function, and rapid ventricular rate, he is admitted to the hospitalist service for further treatment and evaluation. ALLERGIES: GABAPENTIN and CICLOPIROX. CURRENT HOME MEDICATIONS: Per his medication reconciliation list are: - albuterol inhaler every 4 hours as needed - allopurinol 300 mg daily - atorvastatin 80 mg at bedtime - cholecalciferol 2000 units daily - Plavix daily - doxepin 10 mg at bedtime - furosemide 60 mg daily - Keppra 400 mg twice a day - Singulair 10 mg at bedtime - fish oil one capsule 500 mg daily - omeprazole 40 mg daily - triamcinolone cream applied to areas of itching twice a day - valacyclovir 500 mg twice a day - oatmeal lotion applied topically daily PAST MEDICAL HISTORY: Notable for CLL currently undergoing chemotherapy, he had been on chemotherapy prior but then he did discontinue secondary to need for spinal surgery due to severe spinal stenosis. He has chronic kidney disease (CKD) stage III with a baseline creatinine of 1.6 to 1.8. He has a history of seizure disorder. 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 History of spinal stenosis status post surgery. He has history of carpal tunnel on his right upper extremity status post carpal tunnel release. He has history of myocardial infarction (MO) in the past, but it is unclear whether he had any intravascular intervention. He has a history of skin cancer involving the left forearm that he is due to have removed he tells me. SURGICAL HISTORY: Notable for a right anterior chest wall Mediport placement several days ago. He has had bilateral knee arthroplasty. He has had a left testicle removed secondary to a benign growth. He has had an appendectomy. He has had a right breast lumpectomy secondary to a benign tumor. He has had right carpal tunnel release. He has had spinal surgery. SOCIAL HISTORY: The patient is a . He lives at home by himself. He has a caregiver by the name of Sea who helps him. The patient is a DO NOT RESUSCITATE / DO NOT INTUBATE per my conversation with him. He listed his brother, Isidro, at [phone] as the surrogate medical decision maker. FAMILY HISTORY: Notable for prostate and lung cancer in his dad, as well as heart disease and deep venous thromboses (DVTs) in other family members. REVIEW OF SYSTEMS: Positive for fever yesterday but none today. Positive for right arm pain. He denies having any chest discomfort, any worsening shortness of breath or any orthopnea, or any lower extremity swelling. He denies having any decreased urine output over the past several days. Denies having any hemoptysis or easy bleeding from his port site. He denies having any abdominal pain. He is having nausea, vomiting, and diarrhea. He has not been recently hospitalized or been on antibiotics for a prolonged period. He denies having lower extremity pain or swelling. 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 Remainder of systems when I reviewed with the patient are otherwise negative. On examination today, Mr. Mcrae is a 79-year-old gentleman who appears chronically ill. He is resting comfortably in a supine position without any noticeable labored breathing. His heart rate is currently 138. He is in atrial fibrillation with rapid ventricular rate noted on telemetry. He seems to be tolerating this quite well. He is receiving IV KCl through the right arm peripheral IV and is complaining of burning at this site. His respiratory rate is 20 and his blood pressure 107/84, oxygen saturation is 98% on room air. The patient's head is atraumatic, normocephalic. His pupils are equal, round, and reactive to light. He has no scleral icterus. Accommodation is noted to be intact. Oropharynx is clear without exudate, erythema, or thrush. Tympanic membranes are visualized. Nares are patent bilaterally without any visible discharge. Neck is supple with no thyromegaly, no audible carotid bruits. Lung sounds are appreciated without rales, wheezing, or rhonchi. Heart is S1, S2, he is tachycardic. I could not auscultate any murmurs, rubs, or gallops with his fast heart rate. His abdomen is soft, nontender, nondistended. His extremities are without any cyanosis, clubbing, or edema. He has a skin growth on his left wrist. On neurologic exam, patient has some residual left-sided weakness compared to the right side. Gait is not tested given his acute state. PERTINENT DIAGNOSTIC STUDIES: EKG showed atrial fibrillation with RVR. Right upper extremity duplex ultrasound showed no evidence of DVT. Chest x-ray showed no acute pathology. Sodium 138, potassium 2.8, chloride 101, bicarbonate 26, anion gap 11, BUN 42, creatinine 3.12, glucose 93, total bilirubin 0.5, AST 34, ALT 29, alkaline phosphatase 140, initial troponin 0.22 with a CPK of 482, NT-proBNP is slightly elevated at 2002, INR is 1.05, white count 13.2, hemoglobin 11.4, hematocrit 35.2, platelet count 105,000. IMPRESSION: 1. Acute on chronic renal failure with hypokalemia. Patient will be admitted to inpatient status to the progressive care unit (PCU). Will check a phosphorous as well as uric acid just to ensure that hyperuricemia is not playing any role in his worsening renal function. Will also check urine chemistries to investigate to see whether the patient could just be dehydrated from his gastrointestinal (GI) losses. Will obtain a urinalysis (UA) and renal ultrasound. May consider nephrology consult if kidney functions are not improving with gentle hydration overnight. 2. Atrial fibrillation with rapid ventricular rate. Dr. Barker has already been contacted by the emergency room provider regarding this patient. Will ask Dr. Barker to continue with inpatient consultation. We will check his oxygen level as patient has worsening renal function and has received digoxin in the emergency room (ER) department at the behest of Dr. Barker. I am going to order metoprolol 25 mg twice a day at this time with parameters due to his improved blood pressure. An echocardiogram will be obtained. 3. Elevated troponin and BNP level. These likely represent a type 2 ischemic event in the setting of his tachyarrhythmia as well as worsening renal function. We will obtain serial troponins. At this point in time, as patient is not having any chest discomfort, I am not going to fully anticoagulate as he has a risk for bleeding with his renal dysfunction as well as chronic thrombocytopenia. 4. Chronic lymphocytic leukemia. The patient is presently on chemotherapy. We will monitor him and make Dr. Cole aware in the morning that the patient has been hospitalized. 5. Nausea, vomiting, and diarrhea. This may be symptomatic associated with his worsening renal function or could be reflective of possible gastrointestinal (GI) infectious source. Will check a gastrointestinal (GI) panel and he will be placed in contact isolation. Will hold off on giving any Imodium until these studies are resulted. 6. Normocytic normochromic anemia with thrombocytopenia. These are related to patient's underlying chronic lymphocytic leukemia and undergoing chemotherapy. We will monitor these and defer to oncology for further treatment recommendations. 7. Deep venous thrombosis (DVT) prophylaxis. With patient's age, finding of new onset with atrial fibrillation, and previous history of a stroke, patient warrants being on chronic anticoagulation. We will see how his platelets do, as well as renal function, before deciding on best choice of anticoagulant for him. Due to his chronic thrombocytopenia, I am going to hold off on starting any heparin subcutaneously at this time and we can monitor his trend and decide if he is a suitable candidate for anticoagulation. Code status was discussed with the patient and he tells me he is interested in being a DO NOT RESUSCITATE / DO NOT INTUBATE.
--- NOTE | 2019-10-15 22:07 | REPVR ---
PROCEDURE INFORMATION: Exam: US Retroperitoneal Limited, Kidneys Exam date and time: 10/15/19 (8:57pm) Age: 79 years old Clinical indication: Worsening creatinine value TECHNIQUE: Imaging protocol: Real-time ultrasound of the retroperitoneum with image documentation. Examination was focused on the kidneys. COMPARISON: US ABD AORTA of 06/01/19 FINDINGS: RIGHT KIDNEY --- The right kidney measures 10.8 cm in length. No hydronephrosis nor mass is noted. No upper tract stones are identified. LEFT KIDNEY --- The left kidney measures 10.2 cm in length. No hydronephrosis nor mass is noted. No upper tract stones are identified. Left lower renal pole cyst (3.0 x 2.2 x 2.4 cm size) (2.5 cm avg. size). URINARY BLADDER --- Galan catheter in place. Empty bladder. IMPRESSION: No acute pathology. The kidneys are normal in size, with no hydronephrosis. Left lower renal pole cyst (2.5 cm avg. size). Galan catheter in place. Electronically signed by: Milena Stephenson On 10/15/2019 22:07:24 PM
[2019-10-15 23:00] VITALS: BP 99/58
[2019-10-16] VITALS (14 sets, daily range): BP systolic 91–146; BP diastolic 52–76
[2019-10-16] MEDS ORDERED: MAGNESIUM OXIDE 400 MG TAB (MAG-OX) PO ONE ×2 (01:00→06:00)
[2019-10-16] MEDS ORDERED: SODIUM CHLORIDE 0.9% INJ 10 ML SYR IV PRN (03:30)
[2019-10-16 03:45] LABS: CK-MB VALUE MASS 2.7 NG/ML (<3.6); MB/CK RELATIVE INDEX 1.29 (< OR =4); TROPONIN I 0.51 NG/ML (< 0.10)
[2019-10-16] MEDS: NS 1,000 ML IV SCH ×2 (05:47→18:50)
[2019-10-16 05:50] LABS: HEMATOCRIT 27.9 % (42.0-52.0); MEAN CORPUSCULAR HEMOGLOBIN 29.5 pg (27.0-33.0); MEAN CORPUSCULAR HGB CONC 32.3 g/dl (32.0-36.5); MEAN CORPUSCULAR VOLUME 91.5 fl (80.0-96.0); RED BLOOD COUNT 3.05 10^6/uL (4.30-6.10); WHITE BLOOD COUNT 7.2 10^3/uL (4.0-10.0)
[2019-10-16 05:51] LABS: PLATELET COUNT, AUTOMATED 88 10^3/uL (150-450)
[2019-10-16 05:59] LABS: ALBUMIN 2.1 GM/DL (3.2-5.2); BILIRUBIN,TOTAL 0.3 MG/DL (0.2-1.0); CALCIUM LEVEL 7.1 MG/DL (8.8-10.2); CREATININE FOR GFR 1.94 MG/DL (0.70-1.30); DIGOXIN LEVEL 1.2 NG/ML (0.5-2.0); GLOMERULAR FILTRATION RATE 35.7 (>42); POTASSIUM SERUM 2.9 MEQ/L (3.5-5.1); TOTAL PROTEIN 4.7 GM/DL (6.4-8.2)
[2019-10-16] MEDS: POTASSIUM CHLORIDE 10 MEQ SR TABLET PO SCH ×2 (06:16→06:53)
[2019-10-16 06:30] LABS: MAGNESIUM LEVEL 1.5 MG/DL (1.8-2.4); PHOSPHORUS LEVEL 2.1 MG/DL (2.5-4.9)
--- NOTE | 2019-10-16 07:43 | ECGEPIP ---
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
[2019-10-16] MEDS: METOPROLOL TART 25 MG TABLET PO SCH ×2 (08:12→20:15)
[2019-10-16] MEDS: allopurinoL 300 MG TAB PO SCH (08:12)
[2019-10-16] MEDS: levETIRAcetam 250MG TABLET (KEPPRA) PO SCH ×2 (08:13→20:14)
[2019-10-16] MEDS: CLOPIDOGREL 75 MG TAB PO SCH (08:13)
[2019-10-16] MEDS: SODIUM CHLORIDE 0.9% INJ 10 ML SYR IV SCH (08:13)
--- NOTE | 2019-10-16 08:28 | REP ---
REASON: Dyspneic. COMPARISON: Multiple, the latest 12/14/2018. Since the last examination, an Infusaport catheter has been placed entering from the right, the tip of which is in the superior vena cava. The technique utilized in obtaining the radiograph has magnified the cardiac silhouette and accentuated the interstitial markings. The cardiac silhouette is magnified by technique. There is no evidence of cardiomegaly. The lung patricia appear stable. The osseous structures are stable and intact. IMPRESSION: No evidence of acute cardiopulmonary disease. Findings as described above. Electronically Signed by Felipe Centeno DO 10/16/2019 01:31 P
[2019-10-16] MEDS ORDERED: ZYLO300T6 PO (09:06)
[2019-10-16] MEDS ORDERED: DUPI300I SC (09:06)
[2019-10-16] MEDS: TRIAMCINOLONE ACET 0.1% CREAM 15 GM TOP SCH ×2 (15:24→20:13)
--- NOTE | 2019-10-16 15:41 | IPNPDOC ---
Subjective Date Seen The patient was seen on 10/16/19. Subjective Chief Complaint/HPI resolved N/V/D; feels back to baseline Constitutional: Denies: Chills Eyes: Denies: Pain ENT: Denies: Head Aches Pulmonary: Denies: Dyspnea, Cough Cardiovascular: Denies: Chest Pain, Palpitations Gastrointestinal: Denies: Nausea, Vomiting Genitourinary: Denies: Dysuria Objective Physical Examination General Exam: Positive: Alert Neck Exam: Negative: JVD Chest Exam: Positive: Diminished Heart Exam: Positive: Rate Normal Abdomen Exam: Positive: Normal bowel sounds Extremity Exam: Negative: Edema Skin Exam: Negative: Rash Neuro Exam: Positive: Normal Speech Psych Exam: Positive: Mood NL Assessment /Plan Problems (1) Acute kidney injury Status: Resolved Problem Text: 2 dehydration 2 viral enteritis 10/15 held IVF, advance po, almost to baseline GFR 40 10/14 BCX2 NG 10/14 GI panel P (2) Atrial fibrillation with RVR Status: Acute Problem Text: recurrent, favor 2 hypotension, hypoK clopid for AP (defer DOAC 2 CLL/baseline GFR 30s) met suc 50 qAM RC (started thsi admit) (3) Seizure disorder Status: Chronic Problem Text: stable on HD leve 500 BID (4) CVA (cerebral vascular accident) Status: Chronic Problem Text: No recurrence of HD clopid (5) Hypokalemia Status: Resolved Problem Text: 10/15 500 K 2.9, Mg 1.5, then 60 po; repeat P (6) CLL (chronic lymphocytic leukemia) Status: Chronic Problem Text: CVC in place-follows c WCC (7) Diastolic congestive heart failure Problem Text: Euvolemic off HD fur 60-restart at dc (8) Viral enteritis Status: Acute Response to Treatment: Improving Problem Text: as per COLLEEN Plan/VTE VTE Prophylaxis Ordered?: Yes VS, I&O, 24H, Fishbone Vital Signs/I&O Vital Signs Date Time Temp Pulse Resp B/P (MAP) Pulse Ox O2 Delivery O2 Flow Rate FiO2 10/16/19 12:00 98.6 85 18 118/57 (77) 99 Room Air I&O- Last 24 Hours up to 6 AM 10/16/19 06:00 Intake Total 2180 ml Output Total 525 ml Balance 1655 ml Laboratory Data 24H LABS Laboratory Tests 2 10/15/19 19:21: Uric Acid 5.4, Phosphorus Level 2.9, Magnesium Level 1.6L, Total Creatine Kinase 466H, Creatine Kinase MB 3.6, Creatine Kinase MB Relative Index 0.77, Troponin I 0.49#H 10/15/19 21:15: Urine Color YELLOW, Urine Appearance HAZY, Urine pH 6.0, Urine Specific [place] 1.006, Urine Protein NEGATIVE, Urine Glucose (UA) NEGATIVE, Urine Ketones NEGATIVE, Urine Blood 2+H, Urine Nitrite NEGATIVE, Urine Bilirubin NEGATIVE, Urine Urobilinogen 0.2, Urine Leukocyte Esterase NEGATIVE, Urine WBC (Auto) 2, Urine RBC (Auto) 1, Urine Hyaline Casts (Auto) 0, Urine Bacteria (Auto) NEGATIVE , Urine Squamous Epithelial Cells 0, Urine Sperm (Auto) , Urine Random Creatinine 63.7, Urine Random Sodium 13 10/16/19 03:03: Total Creatine Kinase 209, Creatine Kinase MB 2.7, Creatine Kinase MB Relative Index 1.29, Troponin I 0.51H 10/16/19 05:01: Phosphorus Level 2.1#L, Magnesium Level 1.5L, Nucleated Red Blood Cells % (auto) 0.0, Immature Platelet Fraction 3.5, Anion Gap 9, Glomerular Filtration Rate 35.7L, Calcium Level 7.1L, Total Bilirubin 0.3, Aspartate Amino Transf (AST/SGOT) 18, Alanine Aminotransferase (ALT/SGPT) 19, Alkaline Phosphatase 92, Total Protein 4.7L, Albumin 2.1#L, Albumin/Globulin Ratio 0.81L, Digoxin Level 1.2 10/16/19 15:08: CBC/BMP Laboratory Tests 10/15/19 19:21 10/16/19 05:01 Microbiology Microbiology 10/15/19 Blood Culture, Received Pending 10/15/19 Blood Culture, Received Pending Robert Stephenson M.D. Oct 16, 2019 15:41
[2019-10-16 16:06] LABS: ALBUMIN 2.5 GM/DL (3.2-5.2); CK-MB VALUE MASS 1.6 NG/ML (<3.6); CREATININE FOR GFR 1.86 MG/DL (0.70-1.30); GLOMERULAR FILTRATION RATE 37.5 (>42); MAGNESIUM LEVEL 1.8 MG/DL (1.8-2.4); MB/CK RELATIVE INDEX 1.23 (< OR =4); PHOSPHORUS LEVEL 1.3 MG/DL (2.5-4.9); POTASSIUM SERUM 3.7 MEQ/L (3.5-5.1); TROPONIN I 0.28 NG/ML (< 0.10)
--- NOTE | 2019-10-16 16:43 | CR ---
DATE OF CONSULTATION: 10/16/2019 REFERRING PHYSICIAN: Dr. Christiano Parry REASON FOR CONSULTATION: 1. Atrial fibrillation with rapid ventricular response. 2. Abnormal troponin I. HISTORY OF THE PRESENT ILLNESS: Mr. Horace Mcrae is a pleasant 79-year-old man who reports having two prior strokes and a heart attack 15 years ago. No previous cardiac catheterization. He is not aware of any previous diagnosis of palpitations. He presented to the hospital 10/15/2019 with complaints of generalized weakness, nausea, vomiting and diarrhea. He was found to have atrial fibrillation with rapid ventricular response and had mild hypotension. He was given a few doses of digoxin for initial heart rate control. He has chronic lymphocytic leukemia and has recently received chemotherapy. He recently had a Mediport placed this past Wednesday. On arrival, he was found to have hypokalemia. He was found to have an indeterminate level troponin on arrival, as well as an elevated BNP level. He has chronic kidney disease and had worsening of his renal function (acute kidney injury). Patient denies any chest pain or chest discomfort with or without activity. Denies any exertional dyspnea. No orthopnea or paroxysmal nocturnal dyspnea (PND). No leg or ankle swelling. He is completely unaware of any palpitations. No presyncope or syncope. No intermittent claudication. PAST MEDICAL AND SURGICAL HISTORY: Chronic lymphocytic leukemia, undergoing chemotherapy. Chronic kidney disease, stage III. History of epilepsy. Prior herpes zoster complicated by varicella meningitis. History of right thalamic stroke with residual left-sided weakness. History of spinal stenosis, status post surgery. Right-sided carpal tunnel, status post carpal tunnel release. Myocardial infarction 15 years ago. Skin cancer left forearm, which has been removed. Mediport placement right anterior chest wall this past Wednesday. Bilateral knee arthroplasties. Removal of left testicle secondary to benign growth. Appendectomy. Right breast lumpectomy secondary to benign tumor. Right carpal tunnel release. Surgery for spinal stenosis. SOCIAL HISTORY: . Lives by himself. He has a caregiver who assists him. DO NOT RESUSCITATE (DNR) and DO NOT INTUBATE (DNI) status. FAMILY HISTORY: Family history of prostate cancer and lung cancer in his father as well as heart disease and deep vein thrombosis (DVT) in other family members. REVIEW OF SYSTEMS: As per history of the present illness above. Nausea, vomiting and diarrhea. All other 10-point review of systems otherwise negative. MEDICATIONS PRIOR TO ADMISSION: - allopurinol 300 mg daily - atorvastatin 80 mg nightly - vitamin D3 2000 units daily - Plavix 75 mg daily - doxepin 10 mg nightly - dupilumab 300 mg subcu every 2 weeks - furosemide 60 mg daily - Keppra 500 mg twice a day - montelukast 10 mg nightly - fish oil omega 3 500 mg daily - omeprazole 40 mg daily - Valtrex 500 mg daily ADVERSE DRUG REACTIONS: GABAPENTIN, CICLOPIROX. CURRENT MEDICATIONS IN HOSPITAL: - heparin 5000 units IV daily - Kenalog 0.1% topical twice a day to affected areas - Keppra 500 mg twice a day - atorvastatin 80 mg nightly - metoprolol tartrate 25 mg twice a day - clopidogrel 75 mg daily - Ventolin HFA two puffs every 4 hours as needed - doxepin 10 mg nightly - Singulair 10 mg nightly - allopurinol 300 mg daily PHYSICAL EXAMINATION: Pleasant, overweight man who appears his chronologic age who is not in any respiratory or psychologic distress. Height 67 inches, weight 82 kg, body mass index (BMI) 28.3. No conjunctival pallor, scleral icterus or xanthomas. Edentulous. Oral mucosa was moist and without pallor or cyanosis. Jugular venous pulsations were at 3 cm Trachea midline. No palpable thyroid. No clubbing, nail bed cyanosis or splinter hemorrhages. No skin lesions, skin pallor or icterus. Oriented to person, place and time. Mood and affect normal. Curvature of the spine normal. Gait deferred (patient on bed rest in the ICU). Gross motor strength and tone appear normal. Respiratory expansion effort was good. No crackles or wheezes. Right upper chest central venous port in situ. No palpable apex beat. No parasternal lifts, heaves, thrills or palpable heart sounds. First heart sound was variable intensity. Second heart sound normal. No S3 or murmurs appreciated. No pericardial friction rubs. Carotids were normal in upstroke and volume. No carotid bruits. No palpable abdominal aorta. No abdominal bruits. Femoral pulses normal. Pedal pulses normal. No peripheral edema. Abdomen: Soft, nontender with normal bowel sounds. No hepatosplenomegaly or other organomegaly. Liver span difficult to assess due to abdominal obesity. Stool for occult blood deferred. Electrocardiogram 10/15/2019 at 1528 hours shows atrial fibrillation with rapid ventricular response, heart rate 120 beats per minute (bpm), minor nonspecific ST abnormalities. Rhythm change compared with 12/14/2018. Chest x-ray 10/15/2019 reported no evidence of acute cardiopulmonary disease. [id number] catheter entering from the right with tip in the superior vena cava. Magnified cardiac silhouette and accentuated interstitial findings due to radiographic technique used. No evidence of cardiomegaly. Lung patricia reported to appear stable. Laboratory work 10/15/2019 was reviewed: Sodium 138, potassium 2.8, chloride 101, CO2 26, BUN 42, creatinine 3.12, estimated GFR 20.6, glucose 93, calcium 7.8, total protein 0.5, direct bilirubin 0.1, AST 34, ALT 29, alkaline phosphatase 140 (elevated), CPK 482, CPK-MB relative index 0.71, troponin I of 0.22, NT pro-BNP 2002, total protein 5.7, albumin 2.9, WBC 13.2, hemoglobin 11.4, hematocrit 35.2, platelets 105. ASSESSMENT AND PLAN: 1. Persistent atrial fibrillation with associated rapid ventricular response. No palpitations. It is not known with any precision how long the patient has had atrial fibrillation. He has an elevated CHADS-VASc score receiving one point for congestive heart failure, two points for age greater than 75 years old, two points for prior stroke. Unfortunately, his platelets are fairly low due to CLL, and this does increase risk for hemorrhagic problems with warfarin or direct oral anticoagulants. Furthermore, as an outpatient, he was already on clopidogrel. Since he was tolerating clopidogrel as an outpatient, I think it is probably reasonable to let him stay on that rather than fully anticoagulating him with a direct oral anticoagulant or warfarin. His heart rate has come under good control with metoprolol. I have changed him from metoprolol tartrate to metoprolol succinate because the patient has significant kidney disease and in that case, it would be more preferable to use a beta sylvia that is mostly hepatic metabolized. I have changed him from metoprolol tartrate 25 mg twice a day to metoprolol succinate 50 mg daily. An echocardiogram Doppler has been ordered. It will be interpreted under separate cover. 2. Abnormal troponin I. Patient has a remote history of prior myocardial infarction 15 years ago without any previous cardiac catheterization. No pathologic Q waves on his electrocardiogram. No ischemic appearing repolarization abnormalities. He has not been having any chest pain or chest discomfort. I suspect that the indeterminate level of troponin that has been observed on this hospitalization is due to a combination of heart failure (elevated NT pro-BNP) along with significant renal dysfunction. At this point, I recommend continued medical therapy. He was on clopidogrel as an outpatient, and this can be continued before discharge. 3. Coronary artery disease without angina. Remote history of prior myocardial infarction 15 years ago by the patient's account. As noted above, he will be on metoprolol. He can resume clopidogrel prior to discharge. Recommend medical therapy alone. 4. Old myocardial infarction. Reports history of myocardial infarction 15 years ago. No previous cardiac catheterization. As per coronary artery disease category above. 5. Heart failure unspecified. Elevated NT pro-BNP. Awaiting results of the echocardiogram Doppler. He has been started on metoprolol. He is maintained on furosemide as an outpatient. Furosemide is presently on hold because of dehydration and hypokalemia.
--- NOTE | 2019-10-16 17:33 | ECHO ---
DATE OF PROCEDURE: 10/16/2019 REFERRING PHYSICIAN: Dr. Christiano Parry INDICATION: Atrial fibrillation, unspecified. HEIGHT: 170 cm WEIGHT: 82 kg 2D MEASUREMENTS: Left ventricle diastole: 4.9 cm Ventricular septum: 0.86 cm Posterior wall: 0.82 cm Aortic root: 3.0 cm Left atrium: 3.8 cm Left atrial volume index: 27.8 Inferior vena cava: 2.0 cm (more than 50% respiratory variation). DOPPLER MEASUREMENTS: Aortic valve velocity: 161 cm/s LVOT velocity: 108 cm/s LVOT VTI: 18.2 cm No aortic regurgitation. No aortic stenosis. Very mild mitral regurgitation. Mitral E velocity: 95.3 cm/s Mitral A velocity: 97.2 cm/s Mitral deceleration time: 239 ms Mild tricuspid regurgitation. Estimated right ventricle systolic pressure: 35-40 mmHg assuming a right pressure of 5-10 mmHg. No pulmonic regurgitation. MITRAL ANNULAR TISSUE DOPPLER: E prime lateral: 9.55 cm/s E prime septal: 5.65 cm/s DESCRIPTION: Rhythm was sinus. Image quality was fair. No pericardial effusion. This was a 2D, M-mode, color flow Doppler and pulse wave Doppler examination and included mitral annular tissue Doppler. CONCLUSIONS: 1. Normal left ventricle internal dimensions and wall thickness. Normal regional left ventricular (LV) wall motion and wall thickening. Normal LV systolic function. Left ventricular ejection fraction (LVEF) 60% by visual estimate. Grade 1 LV diastolic dysfunction. 2. Moderate aortic valve sclerosis of a 3-cusp aortic valve. No aortic stenosis or regurgitation. 3. Moderate mitral annular calcification. Very mild mitral regurgitation. No mitral stenosis. 4. Normal left atrial size by left atrial volume index. 5. Suggestive of mild elevation of estimated right ventricle systolic pressure. 6. No pericardial effusion.
[2019-10-16] MEDS: MONTELUKAST 10 MG TAB PO SCH (20:14)
[2019-10-16] MEDS: DOXEPIN 10 MG CAP PO SCH (20:15)
[2019-10-16] MEDS: ATORVASTATIN 20 MG TAB PO SCH (20:15)
[2019-10-17] VITALS (11 sets, daily range): BP systolic 107–181; BP diastolic 54–76
[2019-10-17 05:45] LABS: BASO % 0.1 % (0.0-1.0); EOS # 0.8 10^3/uL (0.0-0.5); EOS % 8.9 % (0.0-3.0); LYMPH # 0.5 10^3/uL (1.5-5.0); LYMPH % 5.5 % (24.0-44.0); MEAN CORPUSCULAR HEMOGLOBIN 29.7 pg (27.0-33.0); MEAN CORPUSCULAR HGB CONC 32.1 g/dl (32.0-36.5); MEAN CORPUSCULAR VOLUME 92.4 fl (80.0-96.0); MONO # 0.6 10^3/uL (0.0-0.8); MONO % 6.8 % (0.0-5.0); NEUTROPHILS # 6.5 10^3/uL (1.5-8.5); NEUTROPHILS % 78.1 % (36.0-66.0); RED BLOOD COUNT 3.03 10^6/uL (4.30-6.10); WHITE BLOOD COUNT 8.4 10^3/uL (4.0-10.0)
[2019-10-17 05:52] LABS: PLATELET COUNT, AUTOMATED 84 10^3/uL (150-450)
[2019-10-17 06:07] LABS: ALBUMIN 2.3 GM/DL (3.2-5.2); CALCIUM LEVEL 7.4 MG/DL (8.8-10.2); CREATININE FOR GFR 1.27 MG/DL (0.70-1.30); GLOMERULAR FILTRATION RATE 58.2 (>42); MAGNESIUM LEVEL 1.7 MG/DL (1.8-2.4); PHOSPHORUS LEVEL 1.4 MG/DL (2.5-4.9); POTASSIUM SERUM 3.6 MEQ/L (3.5-5.1)
[2019-10-17] MEDS: NS 1,000 ML IV SCH (06:28)
[2019-10-17] MEDS: SODIUM CHLORIDE 0.9% INJ 10 ML SYR IV SCH (08:47)
[2019-10-17] MEDS: TRIAMCINOLONE ACET 0.1% CREAM 15 GM TOP SCH ×2 (09:00→20:06)
[2019-10-17] MEDS: allopurinoL 300 MG TAB PO SCH (09:30)
[2019-10-17] MEDS: levETIRAcetam 250MG TABLET (KEPPRA) PO SCH ×2 (09:30→20:05)
[2019-10-17] MEDS: METOPROLOL SUCC (TopROL XL) 50MG **XL** TAB PO SCH (09:30)
[2019-10-17] MEDS: CLOPIDOGREL 75 MG TAB PO SCH (09:30)
[2019-10-17] MEDS ORDERED: POTASSIUM CHLORIDE 10 MEQ SR TABLET PO SCH (11:00)
[2019-10-17] MEDS: FUROSEMIDE 40 MG TAB PO SCH (11:41)
--- NOTE | 2019-10-17 11:43 | IPNPDOC ---
Subjective Date Seen The patient was seen on 10/17/19. Subjective Chief Complaint/HPI admits weak c ambulation, wants to dc home to assist GF Constitutional: Denies: Chills ENT: Denies: Head Aches Pulmonary: Denies: Dyspnea, Cough Cardiovascular: Denies: Chest Pain, Palpitations Gastrointestinal: Denies: Nausea, Vomiting Genitourinary: Denies: Dysuria Objective Physical Examination General Exam: Positive: Alert Neck Exam: Negative: JVD Chest Exam: Positive: Diminished Heart Exam: Positive: Rate Normal Abdomen Exam: Positive: Normal bowel sounds Extremity Exam: Negative: Edema Skin Exam: Negative: Rash Neuro Exam: Positive: Normal Speech Psych Exam: Positive: Mood NL Assessment /Plan Problems (1) Physical deconditioning Status: Acute Problem Text: 10/16 NS per PT-favoring 10/18- (10/15 Ax2 for OOB) (2) Acute kidney injury Status: Resolved Problem Text: 2 dehydration 2 viral enteritis 10/15 at baseline GFR 40 10/14 BCX2 NG 10/14 GI panel P (3) Atrial fibrillation with RVR Status: Acute Problem Text: recurrent, favor 2 hypotension, hypoK 10/16 MS c tele clopid for AP (defer DOAC 2 CLL/baseline GFR 30s) met suc 50 qAM RC (started this admit) (4) Seizure disorder Status: Chronic Problem Text: stable on HD leve 500 BID (5) CVA (cerebral vascular accident) Status: Chronic Problem Text: No recurrence of HD clopid (6) Hypokalemia Status: Resolved Problem Text: 10/16 3.6 +20 po 10/15 500 K 2.9, Mg 1.5, then 60 po (7) CLL (chronic lymphocytic leukemia) Status: Chronic Problem Text: CVC in place-follows c WCC (8) Diastolic congestive heart failure Problem Text: Euvolemic off HD fur 60 10/17 restart 40 qAM (9) Viral enteritis Status: Acute Response to Treatment: Improving Problem Text: as per COLLEEN Plan/VTE VTE Prophylaxis Ordered?: Yes VS, I&O, 24H, Fishbone Vital Signs/I&O Vital Signs Date Time Temp Pulse Resp B/P (MAP) Pulse Ox O2 Delivery O2 Flow Rate FiO2 10/17/19 09:30 85 135/66 10/17/19 07:35 98.1 20 96 Room Air I&O- Last 24 Hours up to 6 AM 10/17/19 06:00 Intake Total 2250 ml Output Total 850 ml Balance 1400 ml Laboratory Data 24H LABS Laboratory Tests 2 10/16/19 15:08: Anion Gap 5L, Glomerular Filtration Rate 37.5L, Calcium Level 8.0L, Phosphorus Level 1.3#L, Magnesium Level 1.8, Total Creatine Kinase 130, Creatine Kinase MB 1.6, Creatine Kinase MB Relative Index 1.23, Troponin I 0.28#H, Albumin 2.5L 10/17/19 05:18: Anion Gap 4L, Glomerular Filtration Rate 58.2, Calcium Level 7.4L, Phosphorus Level 1.4L, Magnesium Level 1.7L, Albumin 2.3L, Immature Granulocyte % (Auto) 0.6, Neutrophils (%) (Auto) 78.1H, Lymphocytes (%) (Auto) 5.5L, Monocytes (%) (Auto) 6.8H, Eosinophils (%) (Auto) 8.9H, Basophils (%) (Auto) 0.1, Neutrophils # (Auto) 6.5, Lymphocytes # (Auto) 0.5L, Monocytes # (Auto) 0.6, Eosinophils # (Auto) 0.8H, Basophils # (Auto) 0.0, Nucleated Red Blood Cells % (auto) 0.0, Immature Platelet Fraction 2.2, OZ-Ifi-F-Type Natriuretic Peptide 2788H CBC/BMP Laboratory Tests 10/16/19 15:08 10/17/19 05:18 Microbiology Microbiology 10/15/19 Blood Culture - Preliminary, Resulted No growth after 24 hours . All specim... 10/15/19 Blood Culture - Preliminary, Resulted No growth after 24 hours . All specim... Robert Stephenson M.D. Oct 17, 2019 11:43
[2019-10-17] MEDS: POLYVINYL ALCOHOL OPHTH SOLN 15 ML(LIQUITEARS) OU PRN ×2 (16:45→20:05)
[2019-10-17] MEDS: MONTELUKAST 10 MG TAB PO SCH (20:05)
[2019-10-17] MEDS: ATORVASTATIN 20 MG TAB PO SCH (20:05)
[2019-10-17] MEDS: DOXEPIN 10 MG CAP PO SCH (20:05)
[2019-10-18] VITALS: BP 144/71
[2019-10-18 04:00] VITALS: BP 140/79
[2019-10-18 04:48] LABS: HEMATOCRIT 29.5 % (42.0-52.0); HEMOGLOBIN 9.5 g/dl (13.5-17.5); MEAN CORPUSCULAR HEMOGLOBIN 29.2 pg (27.0-33.0); MEAN CORPUSCULAR HGB CONC 32.2 g/dl (32.0-36.5); MEAN CORPUSCULAR VOLUME 90.8 fl (80.0-96.0); RED BLOOD COUNT 3.25 10^6/uL (4.30-6.10); WHITE BLOOD COUNT 5.3 10^3/uL (4.0-10.0)
[2019-10-18 04:51] LABS: PLATELET COUNT, AUTOMATED 74 10^3/uL (150-450)
[2019-10-18 04:57] LABS: ALBUMIN 2.4 GM/DL (3.2-5.2); BLOOD UREA NITROGEN 19 MG/DL (7-18); CALCIUM LEVEL 8.8 MG/DL (8.8-10.2); CARBON DIOXIDE LEVEL 28 MEQ/L (21-32); CHLORIDE LEVEL 112 MEQ/L (98-107); GLOMERULAR FILTRATION RATE > 60.0 (>42); GLUCOSE, FASTING 96 MG/DL (70-100); MAGNESIUM LEVEL 1.6 MG/DL (1.8-2.4); PHOSPHORUS LEVEL 1.8 MG/DL (2.5-4.9); POTASSIUM SERUM 3.2 MEQ/L (3.5-5.1); SODIUM LEVEL 143 MEQ/L (136-145)
[2019-10-18 05:16] LABS: ATYPICAL LYMPH 3 % (0-5); BASOPHILS 2 % (0-1); EOSINOPHILS 16 % (0-3); LYMPHOCYTES 15 % (16-44); MONOCYTES 8 % (0-5); NEUTROPHILS 56 % (28-66)
[2019-10-18 05:17] LABS: ANISOCYTOSIS 1+; PLATELET ESTIMATE DECREASED (NORMAL)
[2019-10-18 08:00] VITALS: BP 158/78
--- NOTE | 2019-10-18 08:42 | IPN ---
DATE: 10/18/2019 Horace is seen in progressive care unit (PCU) admitted with atrial fibrillation with rapid ventricular response. History of stroke, hypokalemia, chronic lymphocytic leukemia and diastolic congestive heart failure. He has been seen in consultation by cardiology with Dr. Barker. His heart rate has come under control. He is not anticoagulated due to history of thrombocytopenia. Overall, he feels well, the best he has in several days. Denies chest pain, shortness of breath, palpitations. He is afebrile. Vitals signs stable. Blood pressure 140/79, heart rate is in the 70s. General Appearance: Alert, elderly, afebrile, lying in bed. Lungs clear. Heart regular rate and rhythm. Rate around 70. Abdomen soft, nontender, nondistended. No peripheral edema. LABS: White count 5.3, hemoglobin 9.5, platelets 74. Sodium 143, potassium 3.2, BUN 19, creatinine 1.2, glucose 96, magnesium 1.6. IMPRESSION: 1. Atrial fibrillation with rapid ventricular response: His rate is under good control. He is not anticoagulated for reason summarized previously. He is going to med/surg with telemetry today. 2. Hypokalemia: Will replace magnesium and his potassium today. 3. Acute kidney injury: Renal function is improved. Her creatinine is down to 1.2. 4. Protein calorie malnutrition: His albumin is low. Nutritional supplement has been given. 5. [id number] visual myocardial infarction: He is on beta sylvia and antiplatelet medications. Troponins were trending down on 10/16/2019. The rest of his medical problems are currently stable.
[2019-10-18] MEDS: levETIRAcetam 250MG TABLET (KEPPRA) PO SCH ×2 (08:55→21:45)
[2019-10-18] MEDS: METOPROLOL SUCC (TopROL XL) 50MG **XL** TAB PO SCH (08:56)
[2019-10-18] MEDS: FUROSEMIDE 40 MG TAB PO SCH (08:56)
[2019-10-18] MEDS: POTASSIUM CHLORIDE 10 MEQ SR TABLET PO SCH ×2 (08:56→21:45)
[2019-10-18] MEDS: allopurinoL 300 MG TAB PO SCH (08:57)
[2019-10-18] MEDS: SODIUM CHLORIDE 0.9% INJ 10 ML SYR IV SCH (08:59)
[2019-10-18] MEDS: TRIAMCINOLONE ACET 0.1% CREAM 15 GM TOP SCH ×2 (08:59→21:46)
[2019-10-18] MEDS ORDERED: MAG SULF 1GM/100ML (MAG RUN) 1 GM in IV 1 EA IV ONE (09:00)
[2019-10-18] MEDS: CLOPIDOGREL 75 MG TAB PO SCH (09:02)
[2019-10-18] MEDS: MAGNESIUM OXIDE 400 MG TAB (MAG-OX) PO SCH ×2 (09:48→21:45)
[2019-10-18 12:00] VITALS: BP 133/63
[2019-10-18 16:00] VITALS: BP 144/67
[2019-10-18 21:30] VITALS: BP 146/86
[2019-10-18] MEDS: MONTELUKAST 10 MG TAB PO SCH (21:45)
[2019-10-18] MEDS: DOXEPIN 10 MG CAP PO SCH (21:45)
[2019-10-18] MEDS: ATORVASTATIN 20 MG TAB PO SCH (21:45)
[2019-10-19 05:00] VITALS: BP 152/67
[2019-10-19 05:30] LABS: HEMATOCRIT 32.1 % (42.0-52.0); HEMOGLOBIN 10.3 g/dl (13.5-17.5); MEAN CORPUSCULAR HEMOGLOBIN 29.1 pg (27.0-33.0); MEAN CORPUSCULAR HGB CONC 32.1 g/dl (32.0-36.5); MEAN CORPUSCULAR VOLUME 90.7 fl (80.0-96.0); RED BLOOD COUNT 3.54 10^6/uL (4.30-6.10); WHITE BLOOD COUNT 6.5 10^3/uL (4.0-10.0)
[2019-10-19 05:40] LABS: PLATELET COUNT, AUTOMATED 83 10^3/uL (150-450)
[2019-10-19 05:58] LABS: BLOOD UREA NITROGEN 17 MG/DL (7-18); CALCIUM LEVEL 8.1 MG/DL (8.8-10.2); CARBON DIOXIDE LEVEL 28 MEQ/L (21-32); CHLORIDE LEVEL 110 MEQ/L (98-107); CREATININE FOR GFR 0.99 MG/DL (0.70-1.30); GLOMERULAR FILTRATION RATE > 60.0 (>42); GLUCOSE, FASTING 91 MG/DL (70-100); MAGNESIUM LEVEL 1.6 MG/DL (1.8-2.4); POTASSIUM SERUM 4.3 MEQ/L (3.5-5.1); SODIUM LEVEL 143 MEQ/L (136-145)
[2019-10-19 09:00] VITALS: BP 136/63
[2019-10-19] MEDS: MAGNESIUM OXIDE 400 MG TAB (MAG-OX) PO SCH (09:57)
[2019-10-19] MEDS: allopurinoL 300 MG TAB PO SCH (09:57)
[2019-10-19] MEDS: CLOPIDOGREL 75 MG TAB PO SCH (09:57)
[2019-10-19] MEDS: FUROSEMIDE 40 MG TAB PO SCH (09:57)
[2019-10-19] MEDS: POTASSIUM CHLORIDE 10 MEQ SR TABLET PO SCH (09:58)
[2019-10-19 10:01] VITALS: BP 136/63
[2019-10-19] MEDS: METOPROLOL SUCC (TopROL XL) 50MG **XL** TAB PO SCH (10:01)
[2019-10-19] MEDS: levETIRAcetam 250MG TABLET (KEPPRA) PO SCH (10:02)
[2019-10-19] MEDS: TRIAMCINOLONE ACET 0.1% CREAM 15 GM TOP SCH (10:03)
[2019-10-19] MEDS: SODIUM CHLORIDE 0.9% INJ 10 ML SYR IV SCH (10:03)
[2019-10-19 14:00] VITALS: BP 110/62
[2019-10-19] MEDS ORDERED: KLOR10TA76 PO (15:52)
[2019-10-19] MEDS ORDERED: METO1TAB7 PO (15:52)
[2019-10-19] MEDS ORDERED: MAG400TA PO (15:52)
--- NOTE | 2019-10-19 18:16 | DSES ---
DATE OF ADMISSION: DATE OF DISCHARGE: 10/19/2019 DISCHARGE DIAGNOSES: 1. Atrial fibrillation with rapid ventricular rate. 2. Acute kidney injury on chronic kidney disease, stage III. 3. Bowel enteritis with secondary dehydration and hypokalemia. 4. History of cerebrovascular accident. 5. Seizure disorder. 6. Congestive heart failure, diastolic. 7. Chronic lymphocytic leukemia. HOSPITAL COURSE: The patient was admitted with generalized weakness, nausea, vomiting, diarrhea after having second cycle of chlorambucil per Dr. Lindsay, [facility]. He was also found to be in atrial fibrillation with rapid ventricular rate (RVR) with heart rate in the 140s. Initially he was placed on Cardizem drip and then switched to metoprolol succinate 50 daily, for which he had controlled rate. His troponin peaked at 0.22, which was felt per Dr. Barker to be related to his chronic kidney disease and heart failure. Patient was hydrated with intravenous (IV) fluids, and his creatinine returned to baseline. GFR of roughly 40. He was placed on potassium and magnesium supplementation such that at discharge his potassium was 4.3, magnesium 1.6. His diarrhea resolved on day #1 of admission, so a stool culture was not obtained. Blood cultures times two showed no growth. Chest x-ray showed no acute disease. Renal ultrasound done secondary to above-knee amputation (AKA) was unremarkable. Right upper extremity deep vein thrombosis (DVT) ultrasound showed no evidence of DVT. Prior to discharge, the patient was cleared by physical therapy (PT). He was discharged on his routine medications in addition to his new medications, which included metoprolol succinate 50 by mouth daily, potassium 20 mEq by mouth twice a day, and magnesium oxide 400 mg by mouth twice a day. He was instructed to followup with his primary care physician (PCP), Dr. Lewis, and his oncologist, Dr. Cole, in 5-7 days.
[2019-10-23] MEDS ORDERED: POTA20TA6 PO (13:04)
[2019-10-23] MEDS ORDERED: MAGN400T2 PO (13:04)
[2019-10-23] MEDS ORDERED: TOPR50TA PO (13:04)
[2019-10-23] MEDS ORDERED: ZYLO300T6 PO (13:22)
[2019-10-23] MEDS ORDERED: ASPI81TA26 PO (13:33)
[2019-10-24] MEDS ORDERED: ALLO100T PO (09:31)
== END 2019-10-19 16:53 | disposition home health service (06) | DRG 674 ==
LOC: M ED 14:35 → M ED INP 18:38 → ENRESERVTM 20:16 → ENRESERVDT 20:16 → M ICU 21:19
PROVIDERS: ADMIT Internal Medicine; ATTEND Family Medicine
PROC: 0JH63XZ Insertion of Tunneled Vascular Access Device into Chest Subcutaneous Tissue and Fascia, Percutaneous Approach (ICD-10-PCS; principal; 2019-10-13)
PROC: 02HV33Z Insertion of Infusion Device into Superior Vena Cava, Percutaneous Approach (ICD-10-PCS; 2019-10-13)
DX: N17.9 Acute kidney failure, unspecified (principal); I69.354 Hemiplegia and hemiparesis following cerebral infarction affecting left non-dominant side; I50.32 Chronic diastolic (congestive) heart failure; C91.10 Chronic lymphocytic leukemia of B-cell type not having achieved remission; I48.19 Other persistent atrial fibrillation; E46 Unspecified protein-calorie malnutrition; E86.0 Dehydration; A08.4 Viral intestinal infection, unspecified; G40.909 Epilepsy, unspecified, not intractable, without status epilepticus; N18.3 Chronic kidney disease, stage 3 (moderate); I25.10 Atherosclerotic heart disease of native coronary artery without angina pectoris; I25.2 Old myocardial infarction; Z66 Do not resuscitate; R53.1 Weakness; E87.6 Hypokalemia; Z79.02 Long term (current) use of antithrombotics/antiplatelets; Z85.828 Personal history of other malignant neoplasm of skin; Z79.899 Other long term (current) drug therapy; Z88.8 Allergy status to other drugs, medicaments and biological substances; Z96.653 Presence of artificial knee joint, bilateral

== ENCOUNTER → 2019-10-26 | Outpatient (REF) | payer MEDICARE ==
[~2019-10-26] MED LIST changes: +MAG400TA PO; +MAGN400T2 PO; +METO1TAB7 PO; +POTA20TA6 PO; +PROAAER10 INH; +TOPR50TA PO
== END ==
LOC: M LAB REF 17:01
PROVIDERS: ATTEND Dermatology
DX: D04.62 Carcinoma in situ of skin of left upper limb, including shoulder (principal)

== ENCOUNTER → 2019-11-16 | Outpatient (CLI) | payer MEDICARE ==
[~2019-11-16] MED LIST changes: +E-Z-GAS II EFFERVESCENT PACKET (SODIUM BICARB./CITRIC ACID/SIMETHICONE) As Ordered ONE; +E-Z-HD 98% w/w 340GM SUSP BTL As Ordered ONE; +E-Z-PAQUE 96% w/w SUSP 176GM BTL As Ordered ONE
--- NOTE | 2019-11-16 15:55 | REP ---
Esophagram The procedure was performed under the direct supervision of Dr. Stark. The images were reviewed with Dr. Stark. A single view PA chest x-ray is submitted as a senior tableau developer film. There is no change compared to a previous chest x-ray performed on 10/15/2019. Liquid barium and gas producing granules were given in the erect position as well as liquid barium in the prone oblique positions in order to perform a double contrast esophagram examination. During the oral and pharyngeal stages of deglutition there is laryngeal penetration. During esophageal transport there are tertiary waves demonstrated. There is no esophagitis, stricture, mucosal ring or hiatal hernia. Gastroesophageal reflux is not demonstrated on this examination. Impression: 1. There is laryngeal penetration. 2. There are tertiary waves. 1.1 minutes of fluoro time was utilized for this procedure. Electronically Signed by ROXANA Alva 11/16/2019 03:32 P Electronically Signed by Yaniv Stark MD 11/16/2019 03:47 P
== END ==
LOC: M RAD 09:40
PROVIDERS: ATTEND Physician Assistant
DX: R13.10 Dysphagia, unspecified (principal)

== ENCOUNTER → 2019-11-24 | Outpatient (REF) | payer MEDICARE ==
[~2019-11-24] MED LIST changes: -E-Z-GAS II EFFERVESCENT PACKET (SODIUM BICARB./CITRIC ACID/SIMETHICONE) As Ordered ONE; -E-Z-HD 98% w/w 340GM SUSP BTL As Ordered ONE; -E-Z-PAQUE 96% w/w SUSP 176GM BTL As Ordered ONE; +ELIQ2.5T PO; +POLY1.4S OP; +VITAD1000T PO
[2019-11-24 13:03] LABS: BASO % 0.4 % (0.0-1.0); EOS # 0.8 10^3/uL (0.0-0.5); EOS % 8.3 % (0.0-3.0); HEMATOCRIT 36.5 % (42.0-52.0); HEMOGLOBIN 11.8 g/dl (13.5-17.5); LYMPH # 2.5 10^3/uL (1.5-5.0); LYMPH % 27.7 % (24.0-44.0); MEAN CORPUSCULAR HEMOGLOBIN 30.2 pg (27.0-33.0); MEAN CORPUSCULAR HGB CONC 32.3 g/dl (32.0-36.5); MEAN CORPUSCULAR VOLUME 93.4 fl (80.0-96.0); MONO # 0.8 10^3/uL (0.0-0.8); MONO % 8.5 % (0.0-5.0); NEUTROPHILS % 54.6 % (36.0-66.0); PLATELET COUNT, AUTOMATED 122 10^3/uL (150-450); RED BLOOD COUNT 3.91 10^6/uL (4.30-6.10); WHITE BLOOD COUNT 9.1 10^3/uL (4.0-10.0)
== END ==
LOC: M SFHCADAM 10:52
PROVIDERS: ATTEND Family Medicine
DX: T14.8XXA Other injury of unspecified body region, initial encounter (principal); Z79.899 Other long term (current) drug therapy
CPT/HCPCS: 85025; 90471; 90715; G0463

== ENCOUNTER → 2019-11-28 | Outpatient (POV) | payer MEDICARE ==
[~2019-11-28] MED LIST changes: -ELIQ2.5T PO; -POLY1.4S OP; -VITAD1000T PO
--- NOTE | 2019-11-29 13:49 | IRPN ---
[facility] IR Progress Note IR Progress Note DATE: Nov 28, 2019 Teleconsult FOLLOW-UP: Status post port placement. Patient states it is doing well. Port has been used without issues. No pain, fever, or discharge at site. ON EXAMINATION: video conference done. Port site appears to be healing well . No redness or discharge. IMPRESSION: Doing well status post port placement. No further follow up scheduled unless initiated by patient and/or referring provider Thank you for this referral Allergies Coded Allergies: ciclopirox (Verified Allergy, Intermediate, rash, hives, 06/12/19) gabapentin (Verified Allergy, Intermediate, edema, 06/12/19) DARLENE LAMAR MD Nov 29, 2019 13:49
== END ==
LOC: M TMIRPOV 09:06
PROVIDERS: ATTEND Radiology Diagnostic Radiology
DX: Z45.2 Encounter for adjustment and management of vascular access device (principal)

== ENCOUNTER → 2019-12-06 | Outpatient (CLI) | payer MEDICARE ==
--- NOTE | 2019-12-06 16:13 | REP ---
COOKIE SWALLOW The procedure was performed under the direct supervision of Dr. Stark. The procedure was performed with Bree Chaney from speech pathology present. 5 ml aliquots of pudding, thin, mixed fruit and soft consistency barium was administered. With thin and mixed fruit consistency barium there is laryngeal penetration. The detailed report of this examination will be provided by speech pathology. 1 minute of fluoroscopy time was utilized for this procedure. Electronically Signed by ROXANA Alva 12/06/2019 03:43 P Electronically Signed by Yaniv Stark MD 12/06/2019 04:04 P
== END ==
LOC: M ST 10:44
PROVIDERS: ATTEND Family Medicine
DX: R13.10 Dysphagia, unspecified (principal)

== ENCOUNTER 2019-12-13 08:59 | Inpatient (IN) | payer MEDICARE ==
[~2019-12-13] VITALS: Ht 165.1 cm; Wt 86.4 kg
[2019-12-13] MEDS ORDERED: MUPI2OI TOP (09:20)
[2019-12-13] MEDS ORDERED: GABA-1171 PO (09:20)
[2019-12-13] MEDS ORDERED: POLY1.4S OP (09:20)
[2019-12-13] MEDS ORDERED: ACET-683 PO (09:20)
[2019-12-13] MEDS ORDERED: PROPARACAINE 0.5% OPHTH SOL 15ML OU ONE (09:45)
[2019-12-13] MEDS ORDERED: FLUORESCEIN OPHTH 1 MG STRIP As Ordered ONE (10:01)
[2019-12-13 10:33] LABS: HEMATOCRIT 36.5 % (42.0-52.0); HEMOGLOBIN 11.5 g/dl (13.5-17.5); MEAN CORPUSCULAR HEMOGLOBIN 29.1 pg (27.0-33.0); MEAN CORPUSCULAR HGB CONC 31.5 g/dl (32.0-36.5); MEAN CORPUSCULAR VOLUME 92.4 fl (80.0-96.0); PLATELET COUNT, AUTOMATED 139 10^3/uL (150-450); RED BLOOD COUNT 3.95 10^6/uL (4.30-6.10); WHITE BLOOD COUNT 7.3 10^3/uL (4.0-10.0)
[2019-12-13 10:56] LABS: CALCIUM LEVEL 8.4 MG/DL (8.8-10.2); CREATININE FOR GFR 1.54 MG/DL (0.70-1.30); GLOMERULAR FILTRATION RATE 46.6 (>42); POTASSIUM SERUM 4.3 MEQ/L (3.5-5.1)
--- NOTE | 2019-12-13 11:11 | REP ---
CT BRAIN WITHOUT CONTRAST: CT brain performed without IV contrast. Coronal reconstruction images are performed. COMPARISON: 09/11/2019. There is moderate atrophy. There is no midline shift or mass effect. Cavum septum pellucidum is again noted as well as cavum vergae. Chronic periventricular small ischemic changes appear stable. There is new peripheral hypodensity in the left occipital cortex consistent with an acute infarct. There is no acute intracranial hemorrhage, midline shift or mass effect. No extra-axial fluid collection. Vascular calcifications are seen in the carotid siphons. Visualized paranasal sinuses and mastoid air cells are clear. IMPRESSION: Stable chronic findings. However, there is a new area of hypodensity in the left occipital region peripherally consistent with an acute infarct. No acute intracranial hemorrhage. Electronically Signed by Yaniv Stark MD 12/13/2019 12:49 P
[2019-12-13] MEDS ORDERED: ASPIRIN 325 MG TAB PO ONE (12:00)
[2019-12-13] MEDS ORDERED: VITAD1000T PO (12:23)
[2019-12-13] MEDS ORDERED: ALLO100T PO (12:24)
[2019-12-13] MEDS ORDERED: ACETAMINOPHEN TAB 650MG DOSE (2X325MG) PO PRN (13:00)
--- NOTE | 2019-12-13 13:33 | HPEPDOC ---
General Date of Admission December 13, 2019 at 12:52 Date of Service: December 13, 2019 Chief Complaint The patient is a 79-year-old male admitted with a reason for visit of CVA. Source: Patient Exam Limitations: No limitations Timing/Duration: Other (one week) Severity: Mild Associated Symptoms: Other (, vision problems) History of Present Illness This is 79 years old white male with past medical history of CLL, atrial fibrillation on Plavix, came in with chief complaints of blurry vision both eyes since last 1 week, which is progressively getting worse. Patient denies any motor or sensory weakness are any cranial nerve deficit. No shortness of breath, no nausea, vomiting, no chest pain Home Medications Scheduled Allopurinol (Allopurinol) 100 Mg Tablet, 100 MG PO DAILY, (Reported) Atorvastatin Calcium (Atorvastatin Calcium) 80 Mg Tab, 80 MG PO DAILY, (Reported) Cholecalciferol (Vitamin D3) (Vitamin D3) 1,000 Unit Tablet, 2,000 UNITS PO DAILY, (Reported) Clopidogrel Bisulfate (Plavix) 75 Mg Tablet, 75 MG PO DAILY, (Reported) Doxepin HCl (Doxepin HCl) 10 Mg Capsule, 10 MG PO QHS, (Reported) Furosemide (Furosemide) 40 Mg Tablet, 60 MG PO DAILY, (Reported) Gabapentin (Gabapentin) 100 Mg Capsule, 100 MG PO BID, (Reported) Levetiracetam (Keppra) 500 Mg Tab, 500 MG PO BID, (Reported) Magnesium Oxide (Magnesium Oxide) 400 Mg Tablet, 400 MG PO BID, (Reported) Metoprolol Succinate (Toprol Xl) 50 Mg Tab.er.24h, 50 MG PO DAILY, (Reported) Montelukast Sodium (Montelukast Sodium) 10 Mg Tab, 10 MG PO QHS, (Reported) Mupirocin (Mupirocin) 22 Gm Oint...g., 1 APLCT TOP BID, (Reported) AAPLIES TO LEFT ARM [place]-3/Dha/Epa/Fish Oil ([place] 3 500 Softgel) 1 Cap Cap, 500 MG PO DAILY, (Reported) Omeprazole (Omeprazole) 40 Mg Cap, 40 MG PO DAILY, (Reported) Potassium Chloride (Potassium Chloride) 20 Meq Tab.er.prt, 20 MEQ PO BID, (Reported) Valacyclovir HCl (Valtrex) 500 Mg Tablet, 500 MG PO DAILY, (Reported) Scheduled PRN Acetaminophen (Acetaminophen) 500 Mg Tablet, 1,000 MG PO Q6H PRN for BACK PAIN, (Reported) Allergies Coded Allergies: ciclopirox (Verified Allergy, Intermediate, rash, hives, 06/12/19) Past Medical History Medical History CLL , atrial fibrillation, C KD stage III, hypertension, hyperlipidemia, thalamic CVA, herpes zoster, herpes meningitis, spinal stenosis, carpal tunnel syndrome, MS, skin cancer 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 History of MediPort placement, bilateral knee arthroplasty, left orchiectomy, appendectomy, right breast lumpectomy, spinal stenosis surgery Family History Father had lung cancer and MS History of DVT and MS in other family members Social History * Smoker: Denies Alcohol: Denies Drugs: denies A-FIB/CHADSVASC A-FIB History Current/History of A-Fib/PAF?: Yes Current PO Anticoag Therapy: No Review of Systems Constitutional: Denies: Chills, Fever, Malaise, Night Sweats, Weakness, Fatigue, Weight Loss, Lethargy, Other Eyes: Denies: Pain, Vision change, Conjunctivae inflammation, Eyelid inflammation, Redness, Other ENT: Reports: Other Symptoms (, blurred vision both eyes) Skin: Denies: Rash, Lesions, Jaundice, Bruising, Itching, Dry, Breakdown, Nail Changes, Other Pulmonary: Denies: Dyspnea, Cough, Pleuritic Chest Pain, Other Symptoms Cardiovascular: Denies: Chest Pain, Palpitations, Orthopnea, Paroxysmal Noc. Dyspnea, Edema, Lt Headedness, Other Symptoms Gastrointestinal: Denies: Nausea, Vomiting, Abdominal Pain, Diarrhea, Constipation, Melena, Hematochezia, Other Symptoms Genitourinary: Denies: Dysuria, Frequency, Incontinence, Hematuria, Retention, Other Symptoms Hematologic: Denies: Bruising, Bleeding Excessively, Petecchia, Purpura, Enlarged Lymph Nodes, Other Hematologic Endocrine: Denies: Polydipsia, Polyphagia, Polyuria, Heat Intolerance, Cold Intolerance, Other Endocrine Sx Musculoskeletal: Denies: Neck Pain, Back Pain, Shoulder Pain, Arm Pain, Hand Pain, Leg Pain, Foot Pain, Joint Pain, Muscle Pain, Spasms, Other Symptoms Neurological: Denies: Weakness, Numbness, Incoordination, Change in speech, Confusion, Seizures, Other Symptoms Physical Examination General Exam: Positive: Alert, Cooperative Eye Exam: Positive: PERRLA, Conjunctiva & lids normal ENT Exam: Positive: Atraumatic Neck Exam: Positive: Supple Chest Exam: Positive: Clear to auscultation, Normal air movement Heart Exam: Positive: Rate Normal, Normal S1, Normal S2 Abdomen Exam: Positive: Normal bowel sounds, Soft Extremity Exam: Positive: Normal pulses Skin Exam: Positive: Nl turgor and temperature Neuro Exam: Positive: Strength at 5/5 X4 ext, Sensation Intact, Cranial Nerves 3-12 NL Psych Exam: Positive: Mood NL, Oriented x 3 Vital Signs Vital Signs Date Time Temp Pulse Resp B/P (MAP) Pulse Ox O2 Delivery O2 Flow Rate FiO2 12/13/19 12:31 154/90 (111) 12/13/19 12:30 54 18 99 Room Air 12/13/19 09:00 98.7 Laboratory Data Labs 24H Laboratory Tests 2 12/13/19 09:45: Nucleated Red Blood Cells % (auto) 0.0, Anion Gap 5L, Glomerular Filtration Rate 46.6, Calcium Level 8.4L CBC/BMP Laboratory Tests 12/13/19 09:45 Problems (1) CVA (cerebral vascular accident) Status: Acute Problem Text: 79 years old white male with a history of CVA in the past, also history of A. fib, not on anticoagulation secondary to CLL. He was put on Plavix for stroke prevention. Patient presented with chief complaints of bilateral blurry vision since last 1 week. No other motor or sensory weakness or cranial nerve deficit noted. Patient was found to have a new area of hypodensity in left occipital region, most likely acute infarct, no intracranial hemorrhage WBC 7.3, hemoglobin 11.5, hematocrit 36.5, platelets of 139. Electrolytes are normal with BUN 16, creatinine 1.54 Patient on last admission had echo done which shows a normal left ventricular function with EF of 60% Admit patient to PCU with telemetry monitoring Neuro check every nd every 4 hours for 24 hours Seizure precautions Discussed with Dr. Jay as patient's platelets are 139 all his hematological numbers look stable with slight increase in his creatinine to 1.5, he'll be a good candidate to start eliquis as small dose of 2.5 mg by mouth twice a day. Will DC aspirin and Plavix Will not repeat echocardiogram, but will order MRI of the brain and neck PT, OT evaluation Low-salt diet Activity as tolerated DVT prophylaxis with bilateral anti-thrombotic stockings (2) Paroxysmal atrial fibrillation Status: Chronic Problem Text: Continue all home meds as ventricular rate is under control with EKG showing atrial fibrillation, non-ST-T changes with a rate of 70/m Is to start. Also patient on eliquist 2.5 mg by mouth twice a day Monitor CBC. 5. Platelets and hemoglobin (3) CKD (chronic kidney disease) stage 3, GFR 30-59 ml/min Status: Chronic Problem Text: Stable Continue home meds (4) CLL (chronic lymphocytic leukemia) Status: Chronic Problem Text: Stable Further workup with oncologist, Dr. Cole as an outpatient (5) Seizure disorder Status: Chronic Problem Text: Stable Seizure precautions Continue home meds including Keppra (6) Spinal stenosis Status: Chronic Problem Text: Stable Continue home meds Plan / VTE VTE Prophylaxis Ordered?: Yes IVELISSE GOMEZ MD December 13, 2019 13:33
[2019-12-13] MEDS ORDERED: SODIUM CHLORIDE 0.9% INJ 10 ML SYR IV PRN (15:15)
[2019-12-13 15:30] VITALS: BP 154/52
--- NOTE | 2019-12-13 15:59 | REP ---
MR angiography the brain without contrast: History: CVA. Technique: 3-D [id number] MR angiography of the brain is acquired in the usual fashion and maximal intensity projection images were generated in rotational format about the vertical and horizontal axes. In addition, source axial T1-weighted images are viewed in cine mode. MR angiographic findings: The distal vertebral arteries are patent and co-dominant. Basilar artery is a little tortuous but widely patent. The posterior cerebral and superior cerebellar vessels are normal and symmetric. The distal internal carotid arteries are unremarkable. Anterior and middle cerebral arteries appear intact. There is no visible silva aneurysm or arteriovenous malformation. Impression: Unremarkable MR angiography the brain. Electronically Signed by Daquan Elizabeth MD 12/13/2019 03:51 P
--- NOTE | 2019-12-13 16:06 | REP ---
MRI BRAIN WITHOUT CONTRAST: HISTORY: Vision problems. Comparison head CT study September 11, 2019 showed evidence of a recent infarct in the left occipital lobe. TECHNIQUE: Axial and sagittal imaging planes are utilized for T1- and T2-weighted scans. Sequences include spin echo, fast spin echo, FLAIR, and diffusion weighted sequences. MRI FINDINGS: There is mild motion artifact on sagittal T1. Craniocervical junction and upper cervical cord appear to be unremarkable. No bony calvarial lesion is seen. No intraorbital abnormality is seen. Visualized paranasal sinuses are unremarkable. There is generalized volume loss. A persistent cavum septum vergae is noted. Extensive small vessel atherosclerotic changes are seen in the periventricular white matter. There is T2 hyperintensity and some sulcal effacement in the inferior aspect of the left occipital lobe in an area corresponding to the low density seen on CT. There is mixed T2 hyperintensity on diffusion weighted scans here consistent with a subacute infarction. No mass lesion is evident. Early laminar necrosis is suspected. No other cortical infarction is seen. Diffusion weighted scans show no other area of restricted diffusion. There is an old lacunar infarct in the basal ganglia on the right. IMPRESSION: Findings consistent with subacute infarct left occipital lobe. Generalized atrophy and small vessel changes are noted. Electronically Signed by Daquan Elizabeth MD 12/13/2019 07:37 P
--- NOTE | 2019-12-13 16:52 | REP ---
MR ANGIOGRAPHY OF THE CAROTID ARTERIES WITHOUT CONTRAST: HISTORY: CVA. FINDINGS: Vertebral arteries are bilaterally patent and codominant. No abnormalities noted in the aortic arch or great vessel origins. The left vertebral artery appears to take a direct aortic origin which is a normal variant. Common carotid arteries are unremarkable bilaterally. There is evidence of plaquing in the proximal ICA on the right side with 60-75% narrowing suspected. No significant plaquing or narrowing is seen on the left. Internal carotid arteries are otherwise unremarkable. IMPRESSION: Plaquing in the proximal ICA on the right with 60-75% narrowing suspected. The left vertebral artery appears to take a direct aortic origin which is a normal variant. Otherwise negative. Electronically Signed by Daquan Elizabeth MD 12/13/2019 07:37 P
[2019-12-13 20:00] VITALS: BP 142/80
[2019-12-13] MEDS: MUPIROCIN 2% OINT 22 GM TUBE TOP SCH (20:15)
[2019-12-13] MEDS: MAGNESIUM OXIDE 400 MG TAB (MAG-OX) PO SCH (20:15)
[2019-12-13] MEDS: levETIRAcetam 250MG TABLET (KEPPRA) PO SCH (20:16)
[2019-12-13] MEDS: GABAPENTIN 100 MG CAP PO SCH (20:17)
[2019-12-13] MEDS: APIXABAN 2.5 MG TAB (ELIQUIS) PO SCH (20:17)
[2019-12-13] MEDS: POTASSIUM CHLORIDE 10 MEQ SR TABLET PO SCH (20:17)
[2019-12-13] MEDS ORDERED: MONTELUKAST 10 MG TAB PO SCH (21:00)
[2019-12-13] MEDS ORDERED: DOXEPIN 10 MG CAP PO SCH (21:00)
[2019-12-14] VITALS: BP 146/78
[2019-12-14 04:00] VITALS: BP 158/74
[2019-12-14 06:12] LABS: HEMATOCRIT 32.8 % (42.0-52.0); HEMOGLOBIN 10.4 g/dl (13.5-17.5); MEAN CORPUSCULAR HEMOGLOBIN 28.9 pg (27.0-33.0); MEAN CORPUSCULAR HGB CONC 31.7 g/dl (32.0-36.5); MEAN CORPUSCULAR VOLUME 91.1 fl (80.0-96.0); PLATELET COUNT, AUTOMATED 132 10^3/uL (150-450); WHITE BLOOD COUNT 6.2 10^3/uL (4.0-10.0)
[2019-12-14 06:39] LABS: ALBUMIN 3.2 GM/DL (3.2-5.2); BILIRUBIN,TOTAL 0.6 MG/DL (0.2-1.0); CALCIUM LEVEL 7.9 MG/DL (8.8-10.2); CREATININE FOR GFR 1.31 MG/DL (0.70-1.30); GLOMERULAR FILTRATION RATE 56.2 (>42); MAGNESIUM LEVEL 2.5 MG/DL (1.8-2.4); TOTAL PROTEIN 5.7 GM/DL (6.4-8.2)
[2019-12-14 08:00] VITALS: BP 166/94
[2019-12-14] MEDS: POTASSIUM CHLORIDE 10 MEQ SR TABLET PO SCH (08:26)
[2019-12-14] MEDS: MAGNESIUM OXIDE 400 MG TAB (MAG-OX) PO SCH (08:26)
[2019-12-14 08:27] VITALS: BP 158/74
[2019-12-14] MEDS: APIXABAN 2.5 MG TAB (ELIQUIS) PO SCH (08:27)
[2019-12-14] MEDS: levETIRAcetam 250MG TABLET (KEPPRA) PO SCH (08:27)
[2019-12-14] MEDS: GABAPENTIN 100 MG CAP PO SCH (08:28)
[2019-12-14] MEDS: MUPIROCIN 2% OINT 22 GM TUBE TOP SCH (08:28)
[2019-12-14] MEDS ORDERED: VITAMIN D 1,000 INTERNATIONAL UNITS TABLET PO SCH (09:00)
[2019-12-14] MEDS ORDERED: OMEPRAZOLE 20 MG CAP PO SCH (09:00)
[2019-12-14] MEDS ORDERED: allopurinoL 100 MG TAB PO SCH (09:00)
[2019-12-14] MEDS ORDERED: METOPROLOL SUCC (TopROL XL) 50MG **XL** TAB PO SCH (09:00)
[2019-12-14] MEDS ORDERED: SODIUM CHLORIDE 0.9% INJ 10 ML SYR IV SCH (09:00)
[2019-12-14] MEDS ORDERED: valACYclovir HCL 500 MG TAB PO SCH (09:00)
[2019-12-14] MEDS ORDERED: FUROSEMIDE 20 MG TAB PO SCH (09:00)
[2019-12-14] MEDS ORDERED: ATORVASTATIN 20 MG TAB PO SCH (09:00)
[2019-12-14] MEDS ORDERED: ELIQ2.5T PO (09:29)
--- NOTE | 2019-12-14 13:07 | DS.PDOC ---
Discharge Summary General Date of Admission December 13, 2019 at 12:52 Date of Discharge 12/14/19 Discharge Summary PROCEDURES PERFORMED DURING STAY: None. ADMITTING DIAGNOSES: 1. , Blurred vision, TIA, rule out CVA DISCHARGE DIAGNOSES: 1. Left occipital CVA , CLL, atrial fibrillation COMPLICATIONS/CHIEF COMPLAINT: CVA, HISTORY OF PRESENT ILLNESS: his is 79 years old white male with past medical his tory of CLL, atrial fibrillation on Plavix, came in with chief complaints of blurry vision both eyes since last 1 week, which is progressively getting worse. Patient denies any motor or sensory weakness are any cranial nerve deficit. No shortness of breath, no nausea, vomiting, no chest pain. HOSPITAL COURSE: 79 years old white male with a history of CVA in the past, also history of A. fib, not on anticoagulation secondary to CLL. He was put on Plavix for stroke prevention. Patient presented with chief complaints of bilateral blurry vision since last 1 week. No other motor or sensory weakness or cranial nerve deficit noted. Patient was found to have a new area of hypodensity in left occipital region, most likely acute infarct, no intracranial hemorrhage WBC 7.3, hemoglobin 11.5, hematocrit 36.5, platelets of 139. Electrolytes are normal with BUN 16, creatinine 1.54 Patient on last admission had echo done which shows a normal left ventricular function with EF of 60% Patient was admitted to PCU with hall monitor, no arrhythmias noted. Neuro check and remained within normal limit. Patient's symptoms including type lobe. He has resolved He had clear physical therapy evaluation. On MRI of the right ICA. There was a 60-70% stenosis, he was advised for vascular consult, but he is refuses to get any workup done in the hospital but will follow with Dr. Cameron weiss as an outpatient for further evaluation, all risks were explained to him and he understands very well and is infusing to stay in the hospital and wants to be discharged as soon as possible Patient will be discharged home on small dose of eliquis 2.5 mg by mouth twice a day as per Dr. Jay's recommendation and will DC aspirin and Plavix He will follow with Dr. Lockett for neurology and Dr. Norman for vascular surgery outpatient in one week . DISCHARGE MEDICATIONS: Please see below. ALLERGIES: Please see below. PHYSICAL EXAMINATION ON DISCHARGE: VITAL SIGNS: Please see below. GENERAL: Within normal limits HEENT: Elvia extraocular muscles intact NECK: Supple CARDIOVASCULAR EXAMINATION: S1, S2, regular RESPIRATORY EXAMINATION: Clear to A&P ABDOMINAL EXAMINATION: Benign EXTREMITIES: No clubbing, cyanosis, edema SKIN: Normal NEUROLOGICAL EXAMINATION: No focal normal motor sensory deficit PSYCHIATRIC EXAMINATION: Normal LABORATORY DATA: Please see below. IMAGING: MRI brain: Findings consistent with subacute infarct left occipital lobe. Generalized atrophy and small vessel changes are noted. PROGNOSIS: Good ACTIVITY: As tolerated. DIET: As tolerated DISCHARGE PLAN: Discharge home DISPOSITION: Home. DISCHARGE INSTRUCTIONS: 1. As per discharge instructions. ITEMS TO FOLLOWUP ON ON OUTPATIENT: 1. Follow with neurology and vascular surgery as an outpatient. DISCHARGE CONDITION: Stable. TIME SPENT ON DISCHARGE: 28 minutes. Vital Signs/I&Os Vital Signs Date Time Temp Pulse Resp B/P (MAP) Pulse Ox O2 Delivery O2 Flow Rate FiO2 12/14/19 08:27 64 158/74 12/14/19 08:00 98.3 18 100 Room Air I&O- Last 24 Hours up to 6 AM 12/14/19 06:00 Intake Total 240 ml Output Total 0 ml Balance 240 ml Laboratory Data Labs 24H Laboratory Tests 2 12/14/19 05:54: Nucleated Red Blood Cells % (auto) 0.0, Anion Gap 5L, Glomerular Filtration Rate 56.2, Calcium Level 7.9L, Magnesium Level 2.5H, Total Bilirubin 0.6, Aspartate Amino Transf (AST/SGOT) 17, Alanine Aminotransferase (ALT/SGPT) 18, Alkaline Phosphatase 142H, Total Protein 5.7L, Albumin 3.2, Albumin/Globulin Ratio 1.28 CBC/BMP Laboratory Tests 12/14/19 05:54 Discharge Medications Scheduled Allopurinol (Allopurinol) 100 Mg Tablet, 100 MG PO DAILY, (Reported) Apixaban (Eliquis) 2.5 Mg Tablet, 2.5 MG PO BID Atorvastatin Calcium (Atorvastatin Calcium) 80 Mg Tab, 80 MG PO DAILY, (Reported) Cholecalciferol (Vitamin D3) (Vitamin D3) 1,000 Unit Tablet, 2,000 UNITS PO DAILY, (Reported) Doxepin HCl (Doxepin HCl) 10 Mg Capsule, 10 MG PO QHS, (Reported) Furosemide (Furosemide) 40 Mg Tablet, 60 MG PO DAILY, (Reported) Gabapentin (Gabapentin) 100 Mg Capsule, 100 MG PO BID, (Reported) Levetiracetam (Keppra) 500 Mg Tab, 500 MG PO BID, (Reported) Magnesium Oxide (Magnesium Oxide) 400 Mg Tablet, 400 MG PO BID, (Reported) Metoprolol Succinate (Toprol Xl) 50 Mg Tab.er.24h, 50 MG PO DAILY, (Reported) Montelukast Sodium (Montelukast Sodium) 10 Mg Tab, 10 MG PO QHS, (Reported) Mupirocin (Mupirocin) 22 Gm Oint...g., 1 APLCT TOP BID, (Reported) AAPLIES TO LEFT ARM [place]-3/Dha/Epa/Fish Oil ([place] 3 500 Softgel) 1 Cap Cap, 500 MG PO DAILY, (Reported) Omeprazole (Omeprazole) 40 Mg Cap, 40 MG PO DAILY, (Reported) Potassium Chloride (Potassium Chloride) 20 Meq Tab.er.prt, 20 MEQ PO BID, (Reported) Valacyclovir HCl (Valtrex) 500 Mg Tablet, 500 MG PO DAILY, (Reported) Scheduled PRN Acetaminophen (Acetaminophen) 500 Mg Tablet, 1,000 MG PO Q6H PRN for BACK PAIN, (Reported) Allergies Coded Allergies: ciclopirox (Verified Allergy, Intermediate, rash, hives, 06/12/19) IVELISSE GOMEZ MD December 14, 2019 13:07
--- NOTE | 2019-12-14 18:09 | ECGEPIP ---
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
== END 2019-12-14 13:48 | disposition home or self-care (01) | DRG 65 ==
LOC: M ED 08:59 → M ED INP 12:52 → ENRESERV 13:12 → M PCU 15:37
PROVIDERS: ADMIT Internal Medicine; ATTEND Internal Medicine
DX: I63.59 Cerebral infarction due to unspecified occlusion or stenosis of other cerebral artery (principal); C91.90 Lymphoid leukemia, unspecified not having achieved remission; I48.20 Chronic atrial fibrillation, unspecified; N18.3 Chronic kidney disease, stage 3 (moderate); G40.909 Epilepsy, unspecified, not intractable, without status epilepticus; H53.8 Other visual disturbances; I12.9 Hypertensive chronic kidney disease with stage 1 through stage 4 chronic kidney disease, or unspecified chronic kidney disease; I25.2 Old myocardial infarction; I65.21 Occlusion and stenosis of right carotid artery; Z85.828 Personal history of other malignant neoplasm of skin; Z96.653 Presence of artificial knee joint, bilateral; Z90.49 Acquired absence of other specified parts of digestive tract; Z79.02 Long term (current) use of antithrombotics/antiplatelets; Z79.899 Other long term (current) drug therapy; Z88.8 Allergy status to other drugs, medicaments and biological substances

== ENCOUNTER 2019-12-16 20:57 | Emergency (ER) | payer MEDICARE ==
[~2019-12-16] VITALS: Ht 167.6 cm; Wt 74.1 kg
[~2019-12-16 20:57] MED LIST changes: +ELIQ2.5T PO; +POLY1.4S OP; +VITAD1000T PO
--- NOTE | 2019-12-16 21:20 | REPVR ---
PROCEDURE INFORMATION: Exam: CT Head Without Contrast Exam date and time: 12/16/2019 9:04 PM Age: 79 years old Clinical indication: Walking, difficulty; Additional info: R/O stroke TECHNIQUE: Imaging protocol: Computed tomography of the head without contrast. Radiation optimization: All CT scans at this facility use at least one of these dose optimization techniques: automated exposure control; mA and/or kV adjustment per patient size (includes targeted exams where dose is matched to clinical indication); or iterative reconstruction. Other technique: STROKE PROTOCOL was implemented. COMPARISON: CT Head without contrast 12/13/2019 10:04 AM FINDINGS: Brain: No intracranial mass, focal mass effect or midline shift. No acute intracranial hemorrhage. Moderate decreased attenuation in periventricular/centrum semiovale white matter. No focal effacement of cortical sulci to indicate acute cortical infarct. Ventricles: Prominent ventricles and CSF spaces suggest parenchymal volume loss. Cavum septi pellucidi et vergae incidental anatomic variant is present. Bones/joints: No calvarial fracture or destructive process. Sinuses: Encephalomalacia, left occipital, unchanged since the CT from December 12, but new since the CT from September 11, 2019. Visualized paranasal sinuses are unremarkable. Mastoid air cells: Mastoid air cells are normally aerated. Orbits: Visualized globes and orbits are unremarkable. Soft tissues: No focal extracranial soft tissue swelling. IMPRESSION: 1. No new intracranial abnormality. 2. Small left occipital nonhemorrhagic infarct stable over the last 3 days and new since September 2019. Indeterminate chronicity. 3. Atrophy and chronic microangiopathic change in supratentorial white matter. ASSESSMENT: ASPECTS ([place] Stroke Program Early CT Score) is 10 Electronically signed by: Shaw Abreu On 12/16/2019 21:19:38 PM
[2019-12-16] MEDS ORDERED: ASPIRIN 81 MG CHEW TABLET PO ONE (22:30)
[2019-12-16 22:44] VITALS: BP 180/84
[2019-12-16] MEDS ORDERED: amLODIPine 5 MG TAB PO ONE (22:45)
[2019-12-16] MEDS ORDERED: METOPROLOL TART 25 MG TABLET PO ONE (22:45)
[2019-12-16] MEDS ORDERED: ECOT81TA5 PO (23:09)
[2019-12-16] MEDS ORDERED: SODIUM CHLORIDE 0.9% INJ 10 ML SYR IV PRN (23:45)
[2019-12-16 23:50] VITALS: BP 174/84
--- NOTE | 2019-12-17 07:20 | ED PDOC ---
Post-Departure Follow-Up ct head faxed to [facility] for fu Mulu Hamilton MD December 17, 2019 07:20
== END 2019-12-16 23:57 | disposition home or self-care (01) ==
LOC: M ED 20:57
DX: I65.21 Occlusion and stenosis of right carotid artery (principal); I10 Essential (primary) hypertension; Z86.73 Personal history of transient ischemic attack (TIA), and cerebral infarction without residual deficits; I50.9 Heart failure, unspecified; N18.3 Chronic kidney disease, stage 3 (moderate); I48.91 Unspecified atrial fibrillation; C91.10 Chronic lymphocytic leukemia of B-cell type not having achieved remission; G40.909 Epilepsy, unspecified, not intractable, without status epilepticus; F03.90 Unspecified dementia, unspecified severity, without behavioral disturbance, psychotic disturbance, mood disturbance, and anxiety; M48.02 Spinal stenosis, cervical region; Z79.899 Other long term (current) drug therapy; Z79.82 Long term (current) use of aspirin; Z79.01 Long term (current) use of anticoagulants; Z88.8 Allergy status to other drugs, medicaments and biological substances; Z87.891 Personal history of nicotine dependence
CPT/HCPCS: 70450; 99284; J1642

== ENCOUNTER 2019-12-26 10:35 | Inpatient (IN) | payer MEDICARE ==
[~2019-12-26] VITALS: Ht 167.6 cm; Wt 65.2 kg
[~2019-12-26 10:35] MED LIST changes: +ECOT81TA5 PO
[2019-12-26 12:03] LABS: BASO % 0.5 % (0.0-1.0); EOS # 0.7 10^3/uL (0.0-0.5); EOS % 11.4 % (0.0-3.0); HEMATOCRIT 33.7 % (42.0-52.0); HEMOGLOBIN 10.8 g/dl (13.5-17.5); LYMPH # 1.4 10^3/uL (1.5-5.0); LYMPH % 24.5 % (24.0-44.0); MEAN CORPUSCULAR HEMOGLOBIN 29.3 pg (27.0-33.0); MEAN CORPUSCULAR VOLUME 91.6 fl (80.0-96.0); MONO # 0.5 10^3/uL (0.0-0.8); MONO % 9.3 % (0.0-5.0); NEUTROPHILS # 3.1 10^3/uL (1.5-8.5); PLATELET COUNT, AUTOMATED 128 10^3/uL (150-450); RED BLOOD COUNT 3.68 10^6/uL (4.30-6.10); WHITE BLOOD COUNT 5.8 10^3/uL (4.0-10.0)
[2019-12-26 12:25] LABS: INR 1.18; PROTHROMBIN TIME 14.7 SECONDS (11.8-14.0)
[2019-12-26 12:38] LABS: CK-MB VALUE MASS < 1.0 NG/ML (<3.6); CPK CREATINE PHOSPHOKINASE 56 U/L (39-308); MB/CK RELATIVE INDEX 1.79 (< OR =4); TROPONIN I 0.02 NG/ML (< 0.10)
[2019-12-26 13:32] LABS: PARTIAL THROMBOPLASTIN TIME > 120.0 SECONDS (25.0-38.4)
[2019-12-26] MEDS ORDERED: ELIQ2.5T PO (13:45)
[2019-12-26] MEDS ORDERED: ASPI81TA85 PO (13:45)
--- NOTE | 2019-12-26 14:29 | REP ---
CT BRAIN WITHOUT CONTRAST: HISTORY: CVA. Comparison head CT study December 16, 2019 and December 13, 2019. MRI study Dec [address] exams September 11, 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 There is generalized volume loss again noted. Vascular calcification is noted fairly extensively in the distal vertebral and distal internal carotid arteries bilaterally as before. Bony calvarium is intact. There are extensive small vessel atherosclerotic changes. A focal area of encephalomalacia is again seen in the left occipital lobe consistent with the previously described small cortical infarction. There is an old lacunar infarct in the basal ganglia on the right involving the head of the caudate nucleus. This is unchanged as well. No evidence of intracranial hemorrhage. No definite acute infarction is seen. A cavum septum vergae is seen. IMPRESSION: Vascular calcification, diffuse volume loss, old lacunar infarct head of the caudate nucleus on the right, and the previously noted small cortical infarct in the left occipital lobe. No new infarct or hemorrhage seen. Electronically Signed by Daquan Elizabeth MD 12/26/2019 05:59 P
--- NOTE | 2019-12-26 14:39 | REP ---
PORTABLE CHEST X-RAY: Single view. HISTORY: CVA. COMPARISON PORTABLE CHEST X-RAY: October 15, 2019. FINDINGS: A right-sided Quygui-P-Ieej catheter is seen. Monitoring electrodes are noted. Cervical fusion plating is seen in the cervical spine. The thoracic aorta is calcific and tortuous. Heart is not enlarged. The lungs are well inflated and free of infiltrate. The pleural angles are sharp. IMPRESSION: Right-sided Xdepkn-T-Rnzy catheter. Otherwise no acute disease. Electronically Signed by Daquan Elizabeth MD 12/26/2019 05:59 P
[2019-12-26] MEDS ORDERED: ACETAMINOPHEN 500 MG TAB PO PRN (14:45)
[2019-12-26 15:35] VITALS: BP 158/79
[2019-12-26 15:37] LABS: INR 1.03; PROTHROMBIN TIME 13.2 SECONDS (11.8-14.0)
[2019-12-26 15:38] LABS: PARTIAL THROMBOPLASTIN TIME 28.3 SECONDS (25.0-38.4)
[2019-12-26] MEDS ORDERED: SLF 3 ML SYR IV PRN (16:00)
--- NOTE | 2019-12-26 16:28 | REP ---
MRI BRAIN WITHOUT CONTRAST: HISTORY: New weakness left upper extremity. Comparison is made with today's head CT study as well as CT and MRI brain from December 15 and December 13, 2019 respectively. TECHNIQUE: Axial and sagittal imaging planes are utilized for T1- and T2-weighted scans. Sequences include spin echo, fast spin echo, FLAIR, and diffusion weighted sequences. FINDINGS: Bony calvarium remains intact. No intraorbital abnormality is seen. Cavum septum vergae is again seen. Generalized volume loss is noted and periventricular white matter changes consistent with small vessel atherosclerotic changes are again noted as before. Diffusion weighted scans today demonstrate subacute infarct changes in the left occipital lobe as noted on December 13, 2019. No acute area of restricted diffusion is seen to suggest acute ischemia. There is no evidence of intracranial hemorrhage. No new white matter changes. IMPRESSION: Stable findings on MRI imaging compared to December 13, 2019. Subacute infarct pattern left occipital lobe again seen. Small vessel changes and generalized volume loss noted. Electronically Signed by Daquan Elizabeth MD 12/26/2019 06:01 P
--- NOTE | 2019-12-26 17:47 | HPEPDOC ---
[facility] Medical History & Physical Date of Admission December 26, 2019 Date of Service: December 26, 2019 History and Physical CHIEF COMPLAINT: Left arm weakness HISTORY OF PRESENT ILLNESS: 79 yo male recently discharged with home PT after admission for occipital lobe CVA, returns for complaints of left arm weakness. Denies any other neurological complaints. Denies chest pain, shortness of breath, N/V/D, headaches, changes in vision. PAST MEDICAL HISTORY: 1. Atrial fibrillation 2. chronic kidney disease, stage III. 3. CVA 5. Seizure disorder. 6. CHF, diastolic. 7. Chronic lymphocytic leukemia. ALLERGIES: Please see below. REVIEW OF SYSTEMS: Negative except as per HPI. HOME MEDICATIONS: Please see below. PHYSICAL EXAMINATION: VITAL SIGNS: See below General: NAD, lying comfortably in bed, somewhat disheveled HEENT: NC/AT, EOMI Lungs: CTA B/L Heart: +S1S2, RRR Abd: soft, NT, +BS Ext: no edema Neuro: no gross focal deficits LABORATORY DATA: See below. MICROBIOLOGY: Please see below. ASSESSMENT: 79 yo male recently discharged from [facility] for occipital lobe CVA returns for LUE weakness, PMHx afib/Eliquis, CKD, CVA, seizure disorder, HFpEF, CLL. #LUE weakness/CVA - MRI unrevealing - continue medical management of CVA - statin/Eliquis/ASA - PT/OT #CKD #CHF - HFpEF #CLL #seizure disorder #Afib - beta sylvia/Eliquis #DVT prophylaxis - as above, on anti-coagulation Vital Signs Vital Signs Date Time Temp Pulse Resp B/P (MAP) Pulse Ox O2 Delivery O2 Flow Rate FiO2 12/26/19 15:35 97.4 71 20 158/79 (105) 100 Room Air Laboratory Data Labs 24H Laboratory Tests 2 12/26/19 11:07: Immature Granulocyte % (Auto) 0.3, Neutrophils (%) (Auto) 54.0, Lymphocytes (%) (Auto) 24.5, Monocytes (%) (Auto) 9.3H, Eosinophils (%) (Auto) 11.4H, Basophils (%) (Auto) 0.5, Neutrophils # (Auto) 3.1, Lymphocytes # (Auto) 1.4L, Monocytes # (Auto) 0.5, Eosinophils # (Auto) 0.7H, Basophils # (Auto) 0.0, Nucleated Red Blood Cells % (auto) 0.0, Prothrombin Time 14.7H, Prothromb Time International Ratio 1.18, Activated Partial Thromboplast Time > 120.0*H, Total Creatine Kinase 56, Creatine Kinase MB < 1.0, Creatine Kinase MB Relative Index 1.79, Troponin I 0.02 12/26/19 11:48: POC Glucose (Misc Panel) 105, POC Sodium (Misc Panel) 139, POC Potassium (Misc Panel) 4.2, POC Chloride (Misc Panel) 101, POC Total CO2 (Misc Panel) 26.0, POC Blood Urea Nitrogen (Misc Panel 19, POC Ionized Calcium (Misc Panel) 4.5, POC Creatinine (Misc Panel) 1.5H, POC Hematocrit (Misc Panel) 33.0L 12/26/19 15:08: Prothrombin Time 13.2, Prothromb Time International Ratio 1.03, Activated Partial Thromboplast Time 28.3 CBC/BMP Laboratory Tests 12/26/19 11:07 Home Medications Scheduled Allopurinol (Allopurinol) 100 Mg Tablet, 100 MG PO DAILY Apixaban (Eliquis) 2.5 Mg Tablet, 2.5 MG PO BID Aspirin (Aspir 81) 81 Mg Tablet.dr, 81 MG PO DAILY Atorvastatin Calcium (Atorvastatin Calcium) 80 Mg Tab, 80 MG PO DAILY Cholecalciferol (Vitamin D3) (Vitamin D3) 1,000 Unit Tablet, 2,000 UNITS PO DAILY Doxepin HCl (Doxepin HCl) 10 Mg Capsule, 10 MG PO QHS Furosemide (Furosemide) 40 Mg Tablet, 60 MG PO DAILY Gabapentin (Gabapentin) 100 Mg Capsule, 100 MG PO BID Levetiracetam (Keppra) 500 Mg Tab, 500 MG PO BID Magnesium Oxide (Magnesium Oxide) 400 Mg Tablet, 400 MG PO BID Metoprolol Succinate (Toprol Xl) 50 Mg Tab.er.24h, 50 MG PO DAILY Montelukast Sodium (Montelukast Sodium) 10 Mg Tab, 10 MG PO QHS Mupirocin (Mupirocin) 22 Gm Oint...g., 1 APLCT TOP BID APPLIES TO LEFT ARM [place]-3/Dha/Epa/Fish Oil ([place] 3 500 Softgel) 1 Cap Cap, 500 MG PO DAILY Omeprazole (Omeprazole) 40 Mg Cap, 40 MG PO DAILY Potassium Chloride (Potassium Chloride) 20 Meq Tab.er.prt, 20 MEQ PO BID Valacyclovir HCl (Valtrex) 500 Mg Tablet, 500 MG PO DAILY Scheduled PRN Acetaminophen (Acetaminophen) 500 Mg Tablet, 1,000 MG PO Q6H PRN for BACK PAIN Allergies Coded Allergies: ciclopirox (Verified Allergy, Intermediate, rash, hives, 06/12/19) A-FIB/CHADSVASC A-FIB History Current/History of A-Fib/PAF?: Yes Current PO Anticoag Therapy: Yes RAYSA DAMON MD December 26, 2019 17:47
--- NOTE | 2019-12-26 18:50 | ECGEPIP ---
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
[2019-12-26 20:00] VITALS: BP 190/80
[2019-12-26 20:30] VITALS: BP 176/82
--- NOTE | 2019-12-26 20:31 | REPVR ---
PROCEDURE INFORMATION: Exam: MR Cervical Spine Without Contrast Exam date and time: 12/26/2019 8:19 PM Age: 79 years old Clinical indication: Weakness; Prior surgery; Surgery date: 6+ months; Surgery type: Fusion; Additional info: Left upper extremity weakness TECHNIQUE: Imaging protocol: Multiplanar magnetic resonance images of the cervical spine without contrast. COMPARISON: CT Spine,cervical w/o contrast 09/11/2019 11:50 AM FINDINGS: Nonspecific straightening of the cervical lordosis. Trace anterolisthesis of C7 on T1. Vertebral body heights are preserved. Prior fusion involving C3 through C7. There are degenerative changes about the dens. No abnormal cord signal or cord expansion. No epidural fluid collection. No evidence of discitis/osteomyelitis. C2-C3: Moderate disc osteophyte complex with bilateral uncinate spurring and facet joint arthropathy. There is posterior laxity of ligamentum flavum. Findings result in moderate central canal stenosis and severe bilateral foraminal stenosis. C3-C4: Mild disc osteophyte complex with bilateral uncinate spurring and facet joint arthropathy. No significant central canal stenosis. Moderate right and mild left foraminal stenosis. C4-C5: Mild disc osteophyte complex with uncinate spurring and facet joint arthropathy greater on the right. No central canal stenosis. Severe right and myuy-[id number]-[id number] left foraminal stenosis. C5-C6: Mild disc osteophyte complex with bilateral uncinate spurring. No significant central canal stenosis. Severe bilateral foraminal stenosis. C6-C7: Mild disc osteophyte complex with bilateral uncinate spurring. No central canal stenosis. Moderate to severe bilateral foraminal stenosis. C7-T1: Mild disc osteophyte complex with bilateral uncinate spurring and facet joint arthropathy. No significant central canal stenosis. There is moderate bilateral foraminal stenosis. IMPRESSION: 1. No acute abnormality involving the cervical spine. 2. Degenerative findings as above most prominent at C2-C3 where there is moderate central canal stenosis and severe bilateral foraminal stenosis. 3. Previous fusion involving C3 through C7. Electronically signed by: Jordan Cheng On 12/26/2019 20:31:27 PM
[2019-12-26] MEDS: POTASSIUM CHLORIDE 10 MEQ SR TABLET PO SCH (21:17)
[2019-12-26] MEDS: levETIRAcetam 250MG TABLET (KEPPRA) PO SCH (21:17)
[2019-12-26] MEDS: MONTELUKAST 10 MG TAB PO SCH (21:17)
[2019-12-26] MEDS: GABAPENTIN 100 MG CAP PO SCH (21:17)
[2019-12-26] MEDS: MUPIROCIN 2% OINT 22 GM TUBE TOP SCH (21:17)
[2019-12-26] MEDS: DOXEPIN 10 MG CAP PO SCH (21:17)
[2019-12-26] MEDS: APIXABAN 2.5 MG TAB (ELIQUIS) PO SCH (21:17)
[2019-12-26] MEDS: MAGNESIUM OXIDE 400 MG TAB (MAG-OX) PO SCH (21:18)
[2019-12-26] MEDS ORDERED: SLF 3 ML SYR IV SCH (22:00)
[2019-12-26] MEDS ORDERED: SODIUM CHLORIDE 0.9% INJ 10 ML SYR IV PRN (22:45)
[2019-12-26 23:15] VITALS: BP 160/78
[2019-12-27] VITALS: BP 164/85
[2019-12-27] MEDS ORDERED: amLODIPine 5 MG TAB PO ONE (02:00)
[2019-12-27 04:00] VITALS: BP 145/81
[2019-12-27 04:05] LABS: HEMATOCRIT 33.1 % (42.0-52.0); HEMOGLOBIN 10.4 g/dl (13.5-17.5); MEAN CORPUSCULAR HEMOGLOBIN 28.4 pg (27.0-33.0); MEAN CORPUSCULAR HGB CONC 31.4 g/dl (32.0-36.5); MEAN CORPUSCULAR VOLUME 90.4 fl (80.0-96.0); PLATELET COUNT, AUTOMATED 118 10^3/uL (150-450); RED BLOOD COUNT 3.66 10^6/uL (4.30-6.10); WHITE BLOOD COUNT 5.1 10^3/uL (4.0-10.0)
[2019-12-27 04:29] LABS: CALCIUM LEVEL 8.4 MG/DL (8.8-10.2); CHOLESTEROL RISK RATIO 2.425 (<5); CREATININE FOR GFR 1.27 MG/DL (0.70-1.30); GLOMERULAR FILTRATION RATE 58.2 (>42); MAGNESIUM LEVEL 2.5 MG/DL (1.8-2.4)
[2019-12-27 07:59] LABS: HEMOGLOBIN A1c 5.8 %
[2019-12-27 08:00] VITALS: BP 166/81
[2019-12-27] MEDS: MAGNESIUM OXIDE 400 MG TAB (MAG-OX) PO SCH ×3 (09:00→21:33)
[2019-12-27] MEDS: FUROSEMIDE 20 MG TAB PO SCH (09:11)
[2019-12-27] MEDS: VITAMIN D 1,000 INTERNATIONAL UNITS TABLET PO SCH (09:11)
[2019-12-27] MEDS: OMEPRAZOLE 20 MG CAP PO SCH (09:11)
[2019-12-27] MEDS: ATORVASTATIN 20 MG TAB PO SCH (09:11)
[2019-12-27] MEDS: valACYclovir HCL 500 MG TAB PO SCH (09:12)
[2019-12-27] MEDS: levETIRAcetam 250MG TABLET (KEPPRA) PO SCH ×2 (09:12→21:33)
[2019-12-27] MEDS: GABAPENTIN 100 MG CAP PO SCH ×2 (09:12→21:34)
[2019-12-27] MEDS: APIXABAN 2.5 MG TAB (ELIQUIS) PO SCH ×2 (09:12→21:33)
[2019-12-27] MEDS: METOPROLOL SUCC (TopROL XL) 50MG **XL** TAB PO SCH (09:13)
[2019-12-27] MEDS: ASPIRIN 81 MG ENTERIC TAB PO SCH (09:13)
[2019-12-27] MEDS: allopurinoL 100 MG TAB PO SCH (09:13)
[2019-12-27] MEDS: POTASSIUM CHLORIDE 10 MEQ SR TABLET PO SCH ×2 (09:13→21:33)
[2019-12-27] MEDS: MUPIROCIN 2% OINT 22 GM TUBE TOP SCH ×2 (09:14→21:40)
[2019-12-27] MEDS: SODIUM CHLORIDE 0.9% INJ 10 ML SYR IV SCH (09:14)
--- NOTE | 2019-12-27 11:12 | IPNPDOC ---
Text Note Date of Service The patient was seen on 12/27/19. NOTE Subjective: Patient seen and examined at bedside. Feeling much better today. No medical complaints. Anxious to go home. No acute overnight events reported. Objective: General: NAD, sitting comfortably in chair HEENT: NC/AT, EOMI Lungs: CTA B/L Heart: +S1S2, RRR Abd: soft, NT, +BS Ext: no edema Neuro: no gross focal deficits A/P: 79 yo male recently discharged from [facility] for occipital lobe CVA returns for LUE weakness, PMHx afib/Eliquis, CKD, CVA, seizure disorder, HFpEF, CLL. #LUE weakness/CVA - MRI unrevealing - MRI C-spine completed - continue medical management of CVA - statin/Eliquis/ASA - PT/OT - neuro c/s pending - assistance appreciated #CKD #CHF - HFpEF #CLL - oncology appt today cancelled, rescheduled for 12/29/19 at 01:00PM #seizure disorder #Afib - beta sylvia/Eliquis #DVT prophylaxis - as above, on anti-coagulation Dispo: pending PT eval, anticipate discharge in 24-48 hours VS,Fishbone, I+O VS, Fishbone, I+O Laboratory Tests 12/27/19 03:40 Vital Signs Date Time Temp Pulse Resp B/P (MAP) Pulse Ox O2 Delivery O2 Flow Rate FiO2 12/27/19 09:13 72 145/81 12/27/19 08:00 97.6 19 98 Room Air I&O- Last 24 Hours up to 6 AM 12/27/19 05:59 Intake Total 560 ml Output Total 0 ml Balance 560 ml RAYSA DAMON MD December 27, 2019 11:12
[2019-12-27 12:00] VITALS: BP 89/50
[2019-12-27 16:00] VITALS: BP 134/62
[2019-12-27 20:00] VITALS: BP 148/82
[2019-12-27] MEDS: MONTELUKAST 10 MG TAB PO SCH (21:34)
[2019-12-27] MEDS: DOXEPIN 10 MG CAP PO SCH (21:43)
[2019-12-28] VITALS: BP 140/80
[2019-12-28 04:00] VITALS: BP 151/71
[2019-12-28 08:00] VITALS: BP 168/88
[2019-12-28] MEDS: SODIUM CHLORIDE 0.9% INJ 10 ML SYR IV SCH (09:19)
[2019-12-28] MEDS: ASPIRIN 81 MG ENTERIC TAB PO SCH (09:19)
[2019-12-28] MEDS: FUROSEMIDE 20 MG TAB PO SCH (09:19)
[2019-12-28] MEDS: VITAMIN D 1,000 INTERNATIONAL UNITS TABLET PO SCH (09:19)
[2019-12-28] MEDS: POTASSIUM CHLORIDE 10 MEQ SR TABLET PO SCH (09:19)
[2019-12-28 09:20] VITALS: BP 168/88
[2019-12-28] MEDS: levETIRAcetam 250MG TABLET (KEPPRA) PO SCH (09:20)
[2019-12-28] MEDS: ATORVASTATIN 20 MG TAB PO SCH (09:20)
[2019-12-28] MEDS: APIXABAN 2.5 MG TAB (ELIQUIS) PO SCH (09:20)
[2019-12-28] MEDS: METOPROLOL SUCC (TopROL XL) 50MG **XL** TAB PO SCH (09:20)
[2019-12-28] MEDS: valACYclovir HCL 500 MG TAB PO SCH (09:20)
[2019-12-28] MEDS: allopurinoL 100 MG TAB PO SCH (09:20)
[2019-12-28] MEDS: OMEPRAZOLE 20 MG CAP PO SCH (09:20)
[2019-12-28] MEDS: GABAPENTIN 100 MG CAP PO SCH (09:20)
[2019-12-28] MEDS: MAGNESIUM OXIDE 400 MG TAB (MAG-OX) PO SCH (09:20)
[2019-12-28] MEDS: MUPIROCIN 2% OINT 22 GM TUBE TOP SCH (09:21)
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
--- NOTE | 2019-12-28 13:48 | DS.PDOC ---
Discharge Summary General Date of Admission December 26, 2019 at 14:32 Date of Discharge 12/28/19 Discharge Summary PROCEDURES PERFORMED DURING STAY: [None]. DISCHARGE DIAGNOSIS 1. Cervical stenosis 2. generalized deconditioning SECONDARY DIAGNOSES 1. Atrial fibrillation 2. chronic kidney disease, stage III. 3. CVA 5. Seizure disorder. 6. CHF, diastolic. 7. Chronic lymphocytic leukemia. HISTORY OF PRESENT ILLNESS: 79 yo male recently discharged with home PT after admission for occipital lobe CVA, returns for complaints of left arm weakness. Denies any other neurological complaints. Denies chest pain, shortness of breath, N/V/D, headaches, changes in vision. HOSPITAL COURSE: Patient admitted for further evaluation and treatment. Imaging revealed cervical stenosis, seen by ortho, recommendation for outpatient follow up. His symptoms did completely resolve. Hospital stay otherwise unremarkable. DISCHARGE MEDICATIONS: Please see below. ALLERGIES: Please see below. PHYSICAL EXAMINATION ON DISCHARGE: VITAL SIGNS: See below General: NAD, sitting comfortably in chair HEENT: NC/AT, EOMI Lungs: CTA B/L Heart: +S1S2, RRR Abd: soft, NT, +BS Ext: no edema Neuro: no gross focal deficits DISPOSITION: 01 Home, Self-Care. DISCHARGE INSTRUCTIONS: 1. Follow up with oncology as scheduled 2. Follow up with PCP in 3-5 days. 3. Follow up with orthopedics as scheduled. DISCHARGE CONDITION: [Stable]. TIME SPENT ON DISCHARGE: 35 minutes. Vital Signs/I&Os Vital Signs Date Time Temp Pulse Resp B/P (MAP) Pulse Ox O2 Delivery O2 Flow Rate FiO2 12/28/19 09:20 61 168/88 12/28/19 08:00 96.9 17 98 Room Air I&O- Last 24 Hours up to 6 AM 12/28/19 06:00 Intake Total 480 ml Output Total 200 ml Balance 280 ml Discharge Medications Scheduled Allopurinol (Allopurinol) 100 Mg Tablet, 100 MG PO DAILY, (Reported) Apixaban (Eliquis) 2.5 Mg Tablet, 2.5 MG PO BID, (Reported) Aspirin (Aspir 81) 81 Mg Tablet.dr, 81 MG PO DAILY, (Reported) Atorvastatin Calcium (Atorvastatin Calcium) 80 Mg Tab, 80 MG PO DAILY, (Reported) Cholecalciferol (Vitamin D3) (Vitamin D3) 1,000 Unit Tablet, 2,000 UNITS PO DAILY, (Reported) Doxepin HCl (Doxepin HCl) 10 Mg Capsule, 10 MG PO QHS, (Reported) Furosemide (Furosemide) 40 Mg Tablet, 60 MG PO DAILY, (Reported) Gabapentin (Gabapentin) 100 Mg Capsule, 100 MG PO BID, (Reported) Levetiracetam (Keppra) 500 Mg Tab, 500 MG PO BID, (Reported) Magnesium Oxide (Magnesium Oxide) 400 Mg Tablet, 400 MG PO BID, (Reported) Metoprolol Succinate (Toprol Xl) 50 Mg Tab.er.24h, 50 MG PO DAILY, (Reported) Montelukast Sodium (Montelukast Sodium) 10 Mg Tab, 10 MG PO QHS, (Reported) Mupirocin (Mupirocin) 22 Gm Oint...g., 1 APLCT TOP BID, (Reported) APPLIES TO LEFT ARM [place]-3/Dha/Epa/Fish Oil ([place] 3 500 Softgel) 1 Cap Cap, 500 MG PO DAILY, (Reported) Omeprazole (Omeprazole) 40 Mg Cap, 40 MG PO DAILY, (Reported) Potassium Chloride (Potassium Chloride) 20 Meq Tab.er.prt, 20 MEQ PO BID, (Reported) Valacyclovir HCl (Valtrex) 500 Mg Tablet, 500 MG PO DAILY, (Reported) Scheduled PRN Acetaminophen (Acetaminophen) 500 Mg Tablet, 1,000 MG PO Q6H PRN for BACK PAIN, (Reported) Allergies Coded Allergies: ciclopirox (Verified Allergy, Intermediate, rash, hives, 06/12/19) RAYSA DAMON MD December 28, 2019 13:48
[2019-12-28] MEDS ORDERED: amLODIPine 5 MG TAB PO SCH (21:00)
== END 2019-12-28 11:08 | disposition home or self-care (01) | DRG 552 ==
LOC: M ED 10:35 → M ED INP 14:32 → M PCU 15:31
PROVIDERS: ADMIT Internal Medicine; ATTEND Internal Medicine
DX: M48.02 Spinal stenosis, cervical region (principal); I50.32 Chronic diastolic (congestive) heart failure; C91.10 Chronic lymphocytic leukemia of B-cell type not having achieved remission; N18.3 Chronic kidney disease, stage 3 (moderate); I48.91 Unspecified atrial fibrillation; G40.909 Epilepsy, unspecified, not intractable, without status epilepticus; Z66 Do not resuscitate; Z79.01 Long term (current) use of anticoagulants; Z79.82 Long term (current) use of aspirin; Z79.899 Other long term (current) drug therapy; Z88.8 Allergy status to other drugs, medicaments and biological substances; Z98.1 Arthrodesis status; Z86.73 Personal history of transient ischemic attack (TIA), and cerebral infarction without residual deficits

== ENCOUNTER → 2020-01-11 | Outpatient (REF) | payer MEDICARE ==
[2020-01-11 17:52] LABS: APPEARANCE, URINE CLEAR (CLEAR); BACTERIA, URINE AUTO NEGATIVE (NEGATIVE); BILIRUBIN, URINE AUTO NEGATIVE (NEGATIVE); BLOOD, URINE BLOOD NEGATIVE (NEGATIVE); COLOR, URINE YELLOW (YELLOW); GLUCOSE, URINE (UA) AUTO NEGATIVE (NEGATIVE); KETONE, URINE AUTO NEGATIVE (NEGATIVE); LEUKOCYTE ESTERASE, URINE AUTO NEGATIVE (NEGATIVE); MUCUS, URINE SMALL (NEGATIVE); NITRITE, URINE AUTO NEGATIVE (NEGATIVE); PROTEIN, URINE AUTO NEGATIVE (NEGATIVE); RBC, URINE AUTO 2 /HPF (0-3); SPECIFIC GRAVITY URINE AUTO 1.008 (1.002-1.035); SQUAMOUS EPITHELIAL CELL UR AU 0 /HPF (0-6); UROBILINOGEN, URINE AUTO 0.2 mg/dL (0.0-2.0); WBC, URINE AUTO 0 /HPF (0-3)
== END ==
LOC: M SFHCADAM 13:13
PROVIDERS: ATTEND Physician Assistant Medical
DX: R39.15 Urgency of urination (principal)

== ENCOUNTER → 2020-01-29 | Outpatient (REF) | payer MEDICARE | LOC: M LAB REF 12:44 | PROVIDERS: ATTEND Surgery | DX: L97.919 Non-pressure chronic ulcer of unspecified part of right lower leg with unspecified severity (principal) ==

== ENCOUNTER → 2020-02-08 | Outpatient (REF) | payer MEDICARE ==
[~2020-02-08] MED LIST changes: +AMLO1TAB24 PO; +ASPI-161 PO; -ASPI81TA85 PO; +ASPI81TA86 PO; +CEPH250T PO; +D31000TA2 PO; +HALO0.052 TOP; +OMEG1CAP12 PO; +PATIENT COMMENT; +ROBA750T4 PO; +TIZA2TAB6 PO; -VITAD1000T PO
[2020-02-08 17:53] LABS: ALBUMIN 3.8 GM/DL (3.2-5.2); CALCIUM LEVEL 8.9 MG/DL (8.8-10.2); CREATININE FOR GFR 1.92 MG/DL (0.70-1.30); GLOMERULAR FILTRATION RATE 36.1 (>42); PHOSPHORUS LEVEL 3.9 MG/DL (2.5-4.9); POTASSIUM SERUM 5.1 MEQ/L (3.5-5.1)
== END ==
LOC: M SFHCADAM 12:06
PROVIDERS: ATTEND Physician Assistant Medical
DX: I12.9 Hypertensive chronic kidney disease with stage 1 through stage 4 chronic kidney disease, or unspecified chronic kidney disease (principal); N18.3 Chronic kidney disease, stage 3 (moderate); R60.9 Edema, unspecified
CPT/HCPCS: 80069; G0463

== ENCOUNTER → 2020-02-12 | Outpatient (REF) | payer MEDICARE ==
[2020-02-12 19:40] LABS: ALBUMIN 3.7 GM/DL (3.2-5.2); CALCIUM LEVEL 8.5 MG/DL (8.8-10.2); CREATININE FOR GFR 1.68 MG/DL (0.70-1.30); GLOMERULAR FILTRATION RATE 42.2 (>42); PHOSPHORUS LEVEL 3.7 MG/DL (2.5-4.9); POTASSIUM SERUM 4.9 MEQ/L (3.5-5.1)
[2020-02-12 20:07] LABS: APPEARANCE, URINE CLEAR (CLEAR); BACTERIA, URINE AUTO NEGATIVE (NEGATIVE); BILIRUBIN, URINE AUTO NEGATIVE (NEGATIVE); BLOOD, URINE BLOOD 1+ (NEGATIVE); COLOR, URINE YELLOW (YELLOW); GLUCOSE, URINE (UA) AUTO NEGATIVE (NEGATIVE); KETONE, URINE AUTO NEGATIVE (NEGATIVE); LEUKOCYTE ESTERASE, URINE AUTO NEGATIVE (NEGATIVE); NITRITE, URINE AUTO NEGATIVE (NEGATIVE); PROTEIN, URINE AUTO NEGATIVE (NEGATIVE); RBC, URINE AUTO 3 /HPF (0-3); SPECIFIC GRAVITY URINE AUTO 1.018 (1.002-1.035); SQUAMOUS EPITHELIAL CELL UR AU 0 /HPF (0-6); UROBILINOGEN, URINE AUTO 0.2 mg/dL (0.0-2.0); WBC, URINE AUTO 1 /HPF (0-3)
== END ==
LOC: M SFHCADAM 16:03
PROVIDERS: ATTEND Physician Assistant Medical
DX: N28.9 Disorder of kidney and ureter, unspecified (principal)
CPT/HCPCS: 80069; 81001; 87086; G0463

== ENCOUNTER 2020-02-18 04:24 | Emergency (ER) | payer MEDICARE ==
[~2020-02-18] VITALS: Ht 170.2 cm; Wt 72.7 kg
[~2020-02-18 04:24] MED LIST changes: -AMLO1TAB24 PO; -ASPI-161 PO; -CEPH250T PO; -HALO0.052 TOP; -OMEG1CAP12 PO; -PATIENT COMMENT; -ROBA750T4 PO; -TIZA2TAB6 PO
[2020-02-18] MEDS ORDERED: CEPH250T PO (04:36)
[2020-02-18] MEDS ORDERED: ROBA750T4 PO (05:57)
[2020-02-18] MEDS ORDERED: METHOCARBAMOL 1,000 MG/10 ML VIAL (J2800) IM ONE (06:00)
[2020-02-18 06:16] VITALS: BP 115/55
== END 2020-02-18 06:50 | disposition home or self-care (01) ==
LOC: M ED 04:24
DX: M62.838 Other muscle spasm (principal); C91.11 Chronic lymphocytic leukemia of B-cell type in remission; M54.2 Cervicalgia; M54.5 Low back pain; G89.29 Other chronic pain; I48.91 Unspecified atrial fibrillation; I10 Essential (primary) hypertension; Z88.8 Allergy status to other drugs, medicaments and biological substances; Z86.73 Personal history of transient ischemic attack (TIA), and cerebral infarction without residual deficits
CPT/HCPCS: 96372; 99283; J2800

== ENCOUNTER 2020-03-11 13:47 | Observation (INO) | payer MEDICARE, MEDICAID ==
[~2020-03-11 13:47] MED LIST changes: +CEPH250T PO; +HALOBETASOL PROPION 0.05% OINT 15 GM ONE; +ROBA750T4 PO; +TRIAMCINOLONE ACET 0.1% CREAM 15 GM ONE
[2020-03-11] MEDS ORDERED: ISOVUE-370 76% 100ML VIAL As Ordered ONE (14:55)
[2020-03-12] MEDS ORDERED: GABAPENTIN 100 MG CAP As Ordered ONE ×3 (00:38→23:52)
[2020-03-12] MEDS ORDERED: POTASSIUM CHLORIDE 10 MEQ SR TABLET ONE ×3 (00:38→23:52)
[2020-03-12] MEDS ORDERED: MAGNESIUM OXIDE 400 MG TAB (MAG-OX) As Ordered ONE ×3 (00:38→23:52)
[2020-03-12] MEDS ORDERED: GABAPENTIN 100 MG CAP ONE ×3 (00:38→23:52)
[2020-03-12] MEDS ORDERED: MAGNESIUM OXIDE 400 MG TAB (MAG-OX) ONE ×3 (00:38→23:52)
[2020-03-12] MEDS ORDERED: levETIRAcetam 250MG TABLET (KEPPRA) As Ordered ONE ×3 (00:39→23:53)
[2020-03-12] MEDS ORDERED: POTASSIUM CHLORIDE 10 MEQ SR TABLET As Ordered ONE ×3 (00:39→23:53)
[2020-03-12] MEDS ORDERED: MONTELUKAST 10 MG TAB As Ordered ONE (10:09)
[2020-03-12] MEDS ORDERED: OMEPRAZOLE 20 MG CAP As Ordered ONE (10:09)
[2020-03-12] MEDS ORDERED: APIXABAN 2.5 MG TAB (ELIQUIS) ONE ×2 (10:09→23:52)
[2020-03-12] MEDS ORDERED: FUROSEMIDE 20 MG TAB ONE (10:09)
[2020-03-12] MEDS ORDERED: OMEGA-3 1000MG CAPSULE ONE (10:09)
[2020-03-12] MEDS ORDERED: MONTELUKAST 10 MG TAB ONE (10:09)
[2020-03-12] MEDS ORDERED: levETIRAcetam 250MG TABLET (KEPPRA) ONE ×2 (10:09→23:52)
[2020-03-12] MEDS ORDERED: OMEPRAZOLE 20 MG CAP ONE (10:09)
[2020-03-12] MEDS ORDERED: ASPIRIN 81 MG ENTERIC TAB ONE (10:09)
[2020-03-12] MEDS ORDERED: METOPROLOL SUCC *XL* 25MG TAB (TopROL *XL*) ONE (10:09)
[2020-03-12] MEDS ORDERED: APIXABAN 2.5 MG TAB (ELIQUIS) As Ordered ONE ×2 (10:10→23:53)
[2020-03-12] MEDS ORDERED: FUROSEMIDE 20 MG TAB As Ordered ONE (10:10)
[2020-03-12] MEDS ORDERED: OMEGA-3 1000MG CAPSULE As Ordered ONE (10:10)
[2020-03-12] MEDS ORDERED: METOPROLOL SUCC *XL* 25MG TAB (TopROL *XL*) As Ordered ONE (10:10)
[2020-03-12] MEDS ORDERED: ASPIRIN 81 MG ENTERIC TAB As Ordered ONE (10:11)
[2020-03-13] MEDS ORDERED: MONTELUKAST 10 MG TAB As Ordered ONE (10:12)
[2020-03-13] MEDS ORDERED: MAGNESIUM OXIDE 400 MG TAB (MAG-OX) ONE (10:12)
[2020-03-13] MEDS ORDERED: APIXABAN 2.5 MG TAB (ELIQUIS) ONE (10:12)
[2020-03-13] MEDS ORDERED: ATORVASTATIN 20 MG TAB ONE (10:12)
[2020-03-13] MEDS ORDERED: OMEPRAZOLE 20 MG CAP ONE (10:12)
[2020-03-13] MEDS ORDERED: levETIRAcetam 250MG TABLET (KEPPRA) ONE (10:12)
[2020-03-13] MEDS ORDERED: OMEGA-3 1000MG CAPSULE ONE (10:12)
[2020-03-13] MEDS ORDERED: ASPIRIN 81 MG ENTERIC TAB ONE (10:12)
[2020-03-13] MEDS ORDERED: METOPROLOL SUCC (TopROL XL) 50MG **XL** TAB ONE (10:12)
[2020-03-13] MEDS ORDERED: FUROSEMIDE 20 MG TAB ONE (10:12)
[2020-03-13] MEDS ORDERED: MONTELUKAST 10 MG TAB ONE (10:12)
[2020-03-13] MEDS ORDERED: MAGNESIUM OXIDE 400 MG TAB (MAG-OX) As Ordered ONE (10:12)
[2020-03-13] MEDS ORDERED: POTASSIUM CHLORIDE 10 MEQ SR TABLET ONE (10:12)
[2020-03-13] MEDS ORDERED: GABAPENTIN 100 MG CAP ONE (10:12)
[2020-03-13] MEDS ORDERED: OMEPRAZOLE 20 MG CAP As Ordered ONE (10:12)
[2020-03-13] MEDS ORDERED: APIXABAN 2.5 MG TAB (ELIQUIS) As Ordered ONE (10:13)
[2020-03-13] MEDS ORDERED: POTASSIUM CHLORIDE 10 MEQ SR TABLET As Ordered ONE (10:13)
[2020-03-13] MEDS ORDERED: ATORVASTATIN 20 MG TAB As Ordered ONE (10:13)
[2020-03-13] MEDS ORDERED: FUROSEMIDE 20 MG TAB As Ordered ONE (10:13)
[2020-03-13] MEDS ORDERED: OMEGA-3 1000MG CAPSULE As Ordered ONE (10:13)
[2020-03-13] MEDS ORDERED: GABAPENTIN 100 MG CAP As Ordered ONE (10:13)
[2020-03-13] MEDS ORDERED: METOPROLOL SUCC (TopROL XL) 50MG **XL** TAB As Ordered ONE (10:13)
[2020-03-13] MEDS ORDERED: levETIRAcetam 250MG TABLET (KEPPRA) As Ordered ONE (10:14)
[2020-03-13] MEDS ORDERED: ASPIRIN 81 MG ENTERIC TAB As Ordered ONE (10:14)
--- NOTE | 2020-04-18 16:26 | ECGEPIP ---
NORMAL SINUS RHYTHM NONSPECIFIC ST & T-WAVE CHANGES SEE SCANNED DOWNTIME REPORT MTDD
[2020-04-25 10:20] LABS: BASO % 0.5 % (0.0-1.0); EOS # 2.6 10^3/uL (0.0-0.5); EOS % 33.9 % (0.0-3.0); LYMPH # 1.2 10^3/uL (1.5-5.0); LYMPH % 15.8 % (24.0-44.0); MEAN CORPUSCULAR HEMOGLOBIN 27.8 pg (27.0-33.0); MEAN CORPUSCULAR HGB CONC 31.4 g/dl (32.0-36.5); MEAN CORPUSCULAR VOLUME 88.4 fl (80.0-96.0); MONO # 0.6 10^3/uL (0.0-0.8); MONO % 8.4 % (0.0-5.0); NEUTROPHILS # 3.1 10^3/uL (1.5-8.5); NEUTROPHILS % 40.6 % (36.0-66.0); PLATELET COUNT, AUTOMATED 262 10^3/uL (150-450); RED BLOOD COUNT 3.96 10^6/uL (4.30-6.10); WHITE BLOOD COUNT 7.7 10^3/uL (4.0-10.0)
--- NOTE | 2020-04-26 09:02 | REP ---
PORTABLE CHEST X-RAY: SINGLE VIEW HISTORY: Blurred vision. Report is delayed due to a malware attack on this facility. COMPARISON: Chest x-ray 12/26/2019. FINDINGS: A right-sided Infusaport catheter remains in place with its tip in the expected location of the superior vena cava. The face and mandible overlie the lung apices. There is an eventration of the left hemidiaphragm unchanged. No infiltrate is seen in the lung patricia. The pleural angles are sharp. Pulmonary vasculature is not increased. The heart is not felt to be enlarged. The thoracic aorta is somewhat calcific as before. IMPRESSION: No active cardiopulmonary disease. Right-sided Infusaport catheter. MTDD
[2020-04-30 08:29] LABS: INR 1.11; PROTHROMBIN TIME 14.6 SECONDS (12.5-14.3)
[2020-05-02 08:03] LABS: HEMATOCRIT 30.9 % (42.0-52.0); MEAN CORPUSCULAR HEMOGLOBIN 28.1 pg (27.0-33.0); MEAN CORPUSCULAR HGB CONC 32.4 g/dl (32.0-36.5); MEAN CORPUSCULAR VOLUME 86.8 fl (80.0-96.0); PLATELET COUNT, AUTOMATED 234 10^3/uL (150-450); RED BLOOD COUNT 3.56 10^6/uL (4.30-6.10); WHITE BLOOD COUNT 7.3 10^3/uL (4.0-10.0)
[2020-05-05 01:00] LABS: HEMATOCRIT 33.3 % (42.0-52.0); HEMOGLOBIN 10.7 g/dl (13.5-17.5); MEAN CORPUSCULAR HEMOGLOBIN 27.6 pg (27.0-33.0); MEAN CORPUSCULAR HGB CONC 32.1 g/dl (32.0-36.5); PLATELET COUNT, AUTOMATED 223 10^3/uL (150-450); RED BLOOD COUNT 3.87 10^6/uL (4.30-6.10); WHITE BLOOD COUNT 7.3 10^3/uL (4.0-10.0)
[2020-05-25 21:38] LABS: ALBUMIN 3.4 GM/DL (3.2-5.2); ALT/SGPT 18 U/L (12-78); BILIRUBIN,DIRECT 0.1 MG/DL (0.0-0.2); BILIRUBIN,TOTAL 0.4 MG/DL (0.2-1.0); CK-MB VALUE MASS < 1.0 NG/ML (<3.6); CPK CREATINE PHOSPHOKINASE 55 U/L (39-308); MB/CK RELATIVE INDEX 1.82 (< OR =4); TOTAL PROTEIN 6.2 GM/DL (6.4-8.2)
[2020-06-05 00:40] LABS: BLOOD UREA NITROGEN 12 MG/DL (7-18); CALCIUM LEVEL 8.5 MG/DL (8.8-10.2); CARBON DIOXIDE LEVEL 31 MEQ/L (21-32); CHLORIDE LEVEL 106 MEQ/L (98-107); CHOLESTEROL LEVEL 117 MG/DL (<200); CHOLESTEROL RISK RATIO 2.543 (<5); CREATININE FOR GFR 1.18 MG/DL (0.70-1.30); GLOMERULAR FILTRATION RATE > 60.0 (>42); GLUCOSE, FASTING 81 MG/DL (70-100); HDL CHOLESTEROL 46 MG/DL (>40); LDL CHOLESTEROL 56 MG/DL (<100); NON-HDL-C 71 MG/DL; SODIUM LEVEL 141 MEQ/L (136-145); TRIGLYCERIDES LEVEL 75 MG/DL (<150)
[2020-06-05 09:19] LABS: ALBUMIN 3.2 GM/DL (3.2-5.2); BILIRUBIN,TOTAL 0.3 MG/DL (0.2-1.0); CALCIUM LEVEL 8.6 MG/DL (8.8-10.2); CREATININE FOR GFR 1.27 MG/DL (0.70-1.30); GLOMERULAR FILTRATION RATE 58.2 (>42); TOTAL PROTEIN 5.5 GM/DL (6.4-8.2)
== END 2020-03-13 15:13 | disposition home or self-care (01) ==
LOC: M ED 13:47 → M MS5PR 13:48 → UNDOADMIN 18:30 → M MS5PR 18:30 → UNDODISIN 03-13 15:13
PROVIDERS: ADMIT Internal Medicine; ATTEND Internal Medicine
DX: H53.9 Unspecified visual disturbance (principal); Z86.73 Personal history of transient ischemic attack (TIA), and cerebral infarction without residual deficits; G40.909 Epilepsy, unspecified, not intractable, without status epilepticus; I10 Essential (primary) hypertension; J44.9 Chronic obstructive pulmonary disease, unspecified; K21.9 Gastro-esophageal reflux disease without esophagitis; Z79.01 Long term (current) use of anticoagulants; R91.1 Solitary pulmonary nodule; Z86.718 Personal history of other venous thrombosis and embolism; R42 Dizziness and giddiness; Z85.6 Personal history of leukemia; Z92.21 Personal history of antineoplastic chemotherapy; Z87.891 Personal history of nicotine dependence; Z79.899 Other long term (current) drug therapy
CPT/HCPCS: 36415; 70450; 70496; 70498; 70551; 71045; 80053; 80061; 80076; 82550; 82553; 85025; 85027; 85610; 85730; 86850; 86900; 86901; 93005; 97161; 97166; 97530; 97535; 99283; G0378; J1642; Q9967

== ENCOUNTER 2020-03-16 23:15 | Emergency (ER) | payer MEDICARE, MEDICAID ==
[~2020-03-16 23:15] MED LIST changes: -HALOBETASOL PROPION 0.05% OINT 15 GM ONE; -TRIAMCINOLONE ACET 0.1% CREAM 15 GM ONE; +diphenhydrAMINE 25MG CAP As Ordered ONE; +diphenhydrAMINE 25MG CAP ONE
== END 2020-03-16 23:30 | disposition home or self-care (01) ==
LOC: M ED 23:15
DX: S80.861A Insect bite (nonvenomous), right lower leg, initial encounter (principal); S80.862A Insect bite (nonvenomous), left lower leg, initial encounter; B88.8 Other specified infestations; W57.XXXA Bitten or stung by nonvenomous insect and other nonvenomous arthropods, initial encounter; Y92.099 Unspecified place in other non-institutional residence as the place of occurrence of the external cause; Y93.9 Activity, unspecified; Y99.9 Unspecified external cause status

== ENCOUNTER 2020-03-20 15:36 | Inpatient (IN) | payer MEDICARE, MEDICAID ==
[~2020-03-20] VITALS: Ht 175.3 cm; Wt 80.1 kg
[~2020-03-20 15:36] MED LIST changes: -diphenhydrAMINE 25MG CAP As Ordered ONE; -diphenhydrAMINE 25MG CAP ONE
--- NOTE | 2020-03-20 16:50 | REPVR ---
PROCEDURE INFORMATION: Exam: CT Head Without Contrast Exam date and time: 03/20/2020 4:20 PM Age: 79 years old Clinical indication: Injury or trauma; Fall; Initial encounter; Blunt trauma (contusions or hematomas); Additional info: Fall on tomas TECHNIQUE: Imaging protocol: Computed tomography of the head without contrast. Radiation optimization: All CT scans at this facility use at least one of these dose optimization techniques: automated exposure control; mA and/or kV adjustment per patient size (includes targeted exams where dose is matched to clinical indication); or iterative reconstruction. COMPARISON: CT Head without contrast 12/26/2019 11:05 AM FINDINGS: Brain: A large chronic left occipital lobe infarct is present, increased from the prior exam. A chronic lacunar infarct is noted within the right basal ganglia. An additional chronic lacunar infarct is noted in the posterolateral left thalamus. There is no acute intracranial hemorrhage, cerebral edema, or midline shift. Chronic microvascular ischemic changes are seen in the periventricular white matter. Age-related cerebral and cerebellar volume loss is present. Ventricles: Mild ex vacuo dilation of the lateral and third ventricles is noted. Incidental note is made of a cavum septum pellucidum and cavum vergae. Bones/joints: No acute fracture. Sinuses: There is no acute sinusitis. Mastoid air cells: The mastoid air cells are clear. Orbits: The included orbital structures are unremarkable. Vasculature: Atherosclerotic calcifications are seen involving the cavernous carotid arteries. Soft tissues: Unremarkable. IMPRESSION: 1. No acute intracranial abnormality. 2. Chronic findings as discussed above. Electronically signed by: Ian France On 03/20/2020 16:50:50 PM
--- NOTE | 2020-03-20 16:52 | REPVR ---
PROCEDURE INFORMATION: Exam: XR Left Shoulder Exam date and time: 03/20/2020 4:42 PM Age: 79 years old Clinical indication: Injury or trauma; Fall; Initial encounter; Sprain or strain; Shoulder; Left TECHNIQUE: Imaging protocol: XR Left shoulder. Views: 2 or more views. COMPARISON: No relevant prior studies available. FINDINGS: Bones/joints: There is no acute fracture or dislocation. Moderate degenerative changes of the left acromioclavicular joint are present. Vasculature: Atherosclerotic calcifications are noted within the aortic arch. Soft tissues: Normal. IMPRESSION: No acute abnormality. Electronically signed by: Ian France On 03/20/2020 16:52:48 PM
--- NOTE | 2020-03-20 16:53 | REPVR ---
PROCEDURE INFORMATION: Exam: XR Left Humerus Exam date and time: 03/20/2020 4:42 PM Age: 79 years old Clinical indication: Injury or trauma; Fall; Initial encounter; Sprain or strain; Arm, upper; Left TECHNIQUE: Imaging protocol: XR Left humerus Views: 2 or more views. COMPARISON: No relevant prior studies available. FINDINGS: Bones/joints: There is no acute fracture or dislocation. Soft tissues: Normal. IMPRESSION: No acute findings. Electronically signed by: Ian France On 03/20/2020 16:53:26 PM
--- NOTE | 2020-03-20 16:54 | REPVR ---
PROCEDURE INFORMATION: Exam: XR Right Hand Exam date and time: 03/20/2020 4:42 PM Age: 79 years old Clinical indication: Injury or trauma; Fall; Initial encounter; Sprain or strain; Hand; Right TECHNIQUE: Imaging protocol: XR Right hand. Views: 3 or more views. COMPARISON: No relevant prior studies available. FINDINGS: Bones/joints: Bone mineralization is decreased, suggestive of osteoporosis. There is no acute fracture. Mild degenerative changes are present. Soft tissues: Normal. IMPRESSION: No acute abnormality. Electronically signed by: Ian France On 03/20/2020 16:55:12 PM
--- NOTE | 2020-03-20 16:58 | REPVR ---
PROCEDURE INFORMATION: Exam: XR Right Forearm Exam date and time: 03/20/2020 4:42 PM Age: 79 years old Clinical indication: Injury or trauma; Fall; Initial encounter; Sprain or strain; Arm, lower; Right TECHNIQUE: Imaging protocol: XR Right forearm. Views: 2 views. COMPARISON: No relevant prior studies available. FINDINGS: Bones/joints: There is no acute fracture or dislocation. Soft tissues: Normal. IMPRESSION: No acute findings. Electronically signed by: Ian France On 03/20/2020 16:58:51 PM
--- NOTE | 2020-03-20 17:04 | REPVR ---
PROCEDURE INFORMATION: Exam: XR Chest, 1 View Exam date and time: 03/20/2020 4:42 PM Age: 79 years old Clinical indication: Injury or trauma; Fall; Initial encounter; Sprain or strain TECHNIQUE: Imaging protocol: XR of the chest Views: 1 view. COMPARISON: SC PORTABLE CHEST X-RAY 12/26/2019 11:32 AM FINDINGS: Tubes, catheters and devices: A right internal jugular Port-A-Cath terminates at the cavoatrial junction. Lungs: Unremarkable. No consolidation. Pleural space: Unremarkable. No pleural effusion. No pneumothorax. Heart/Mediastinum: Unremarkable. No cardiomegaly. Vasculature: Atherosclerotic calcifications are noted within the aortic arch. Bones/joints: Unremarkable. IMPRESSION: No acute abnormality. Electronically signed by: Ian France On 03/20/2020 17:03:58 PM
[2020-03-20 17:44] LABS: BASO # 0.1 10^3/uL (0.0-0.2); BASO % 0.8 % (0.0-1.0); EOS # 2.4 10^3/uL (0.0-0.5); HEMATOCRIT 32.2 % (42.0-52.0); HEMOGLOBIN 10.2 g/dl (13.5-17.5); LYMPH # 1.3 10^3/uL (1.5-5.0); LYMPH % 17.3 % (24.0-44.0); MEAN CORPUSCULAR HEMOGLOBIN 27.5 pg (27.0-33.0); MEAN CORPUSCULAR HGB CONC 31.7 g/dl (32.0-36.5); MEAN CORPUSCULAR VOLUME 86.8 fl (80.0-96.0); MONO # 0.6 10^3/uL (0.0-0.8); MONO % 8.4 % (0.0-5.0); NEUTROPHILS % 40.8 % (36.0-66.0); PLATELET COUNT, AUTOMATED 267 10^3/uL (150-450); RED BLOOD COUNT 3.71 10^6/uL (4.30-6.10); WHITE BLOOD COUNT 7.3 10^3/uL (4.0-10.0)
[2020-03-20 17:53] LABS: INR 1.07; PROTHROMBIN TIME 14.1 SECONDS (11.8-14.0)
[2020-03-20 17:54] LABS: PARTIAL THROMBOPLASTIN TIME 46.7 SECONDS (25.0-38.4)
[2020-03-20 18:09] LABS: EOS % 32.2 % (0.0-3.0)
[2020-03-20 18:26] LABS: ALBUMIN 3.3 GM/DL (3.2-5.2); ALT/SGPT 14 U/L (12-78); BILIRUBIN,DIRECT 0.1 MG/DL (0.0-0.2); BILIRUBIN,TOTAL 0.3 MG/DL (0.2-1.0); BLOOD UREA NITROGEN 17 MG/DL (7-18); CALCIUM LEVEL 8.6 MG/DL (8.8-10.2); CARBON DIOXIDE LEVEL 29 MEQ/L (21-32); CHLORIDE LEVEL 105 MEQ/L (98-107); CK-MB VALUE MASS 1.1 NG/ML (<3.6); CPK CREATINE PHOSPHOKINASE 71 U/L (39-308); CREATININE FOR GFR 1.86 MG/DL (0.70-1.30); GLOMERULAR FILTRATION RATE 37.5 (>42); GLUCOSE, FASTING 108 MG/DL (70-100); MB/CK RELATIVE INDEX 1.55 (< OR =4); POTASSIUM SERUM 4.1 MEQ/L (3.5-5.1); SODIUM LEVEL 139 MEQ/L (136-145); TOTAL PROTEIN 5.9 GM/DL (6.4-8.2); TROPONIN I < 0.02 NG/ML (< 0.10)
[2020-03-20] MEDS ORDERED: NS 1,000 ML IV ONE ×2 (18:45→20:45)
[2020-03-20] MEDS ORDERED: MAALOX 30 ML SUSP *UDC PO PRN (20:45)
[2020-03-20] MEDS ORDERED: MOM 30ML SUSPENSION UDC PO PRN (20:45)
--- NOTE | 2020-03-20 20:46 | HPEPDOC ---
General Date of Admission 03/20/20 Date of Service: Mar 20, 2020 Chief Complaint The patient is a 79-year-old male admitted with a reason for visit of FALL. Source: Patient, RN/MD History of Present Illness 79 year old male with worsening blindness form occipital stroke, CLL on chemotherapy, CKD stage 3 , Paroxysmal Afib on Eliquis and multiple other medical problems lives alone had a mechanical fall while going down the steps from his trailer when he missed a step and landed on his left arm and right wrist. He complained of throbbing pain on his right arm about 6/10 in intensity with no radiation. he also has mild soreness about 3/10 in his right wrist. Trauma work up in the E was negative for any acute fractures or dislocations. His brother was living with him for the past 6 months but he moved out 1 week ago since then he has been finding it very difficult to manage by himself alone at home and he is requesting to go to [place]. His mother who is 100 yearsold lives in [facility] and is interested in going there. Evaluation in the ED showed elevated creatinine from his baseline so he is admitted for COLLEEN. Home Medications Scheduled Allopurinol (Allopurinol) 100 Mg Tablet, 100 MG PO DAILY, (Reported) Apixaban (Eliquis) 2.5 Mg Tablet, 2.5 MG PO BID, (Reported) Aspirin (Aspir 81) 81 Mg Tablet.dr, 81 MG PO DAILY, (Reported) Atorvastatin Calcium (Atorvastatin Calcium) 80 Mg Tab, 80 MG PO DAILY, (Reported) Cephalexin (Cephalexin) 250 Mg Tablet, 250 MG PO BID, (Reported) Cholecalciferol (Vitamin D3) (Vitamin D3) 1,000 Unit Tablet, 2,000 UNITS PO DAILY, (Reported) Doxepin HCl (Doxepin HCl) 10 Mg Capsule, 10 MG PO QHS, (Reported) Furosemide (Furosemide) 40 Mg Tablet, 60 MG PO DAILY, (Reported) Gabapentin (Gabapentin) 100 Mg Capsule, 100 MG PO BID, (Reported) Levetiracetam (Keppra) 500 Mg Tab, 500 MG PO BID, (Reported) Magnesium Oxide (Magnesium Oxide) 400 Mg Tablet, 400 MG PO BID, (Reported) Methocarbamol (Robaxin-750) 750 Mg Tablet, 1 TAB PO TID Metoprolol Succinate (Toprol Xl) 50 Mg Tab.er.24h, 50 MG PO DAILY, (Reported) Montelukast Sodium (Montelukast Sodium) 10 Mg Tab, 10 MG PO QHS, (Reported) Mupirocin (Mupirocin) 22 Gm Oint...g., 1 APLCT TOP BID, (Reported) APPLIES TO LEFT ARM [place]-3/Dha/Epa/Fish Oil ([place] 3 500 Softgel) 1 Cap Cap, 500 MG PO DAILY, (Reported) Omeprazole (Omeprazole) 40 Mg Cap, 40 MG PO DAILY, (Reported) Potassium Chloride (Potassium Chloride) 20 Meq Tab.er.prt, 20 MEQ PO BID, (Reported) Scheduled PRN Acetaminophen (Acetaminophen) 500 Mg Tablet, 1,000 MG PO Q6H PRN for BACK PAIN, (Reported) Allergies Coded Allergies: ciclopirox (Verified Allergy, Intermediate, rash, hives, 06/12/19) Past Medical History Medical History CLL On chemotherapy R THALAMIC STROKE IN 09/30/2012, TIA ONE WEEK LATER - ON PLAVIX Legally blind HTN EPILEPSY CERVICAL SPINAL STENOSIS VENOUS ULCERS LEGS BILAT 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 DEMENTIA 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 CKD 3 Paroxysmal A fib AAA SACRAL PRESSURE ULCER DIASTOLIC CHF--ECHO 10/2019: EF 60%, TRACE MR, MILDLY INC RT-SIDED PRESSURES LOW BACK PAIN - MRI L-S SPINE 04/2019 - DDD, DISC BULG L4 WITH FORAMINAL NARROWING, MILD SPINAL STENOSIS - FOLLOWED BY [facility] Dysphagia LARYNGEAL PENETRATION PER ESOPHAGRAM 11/2019 ST RECOMMENDATION MECH SOFT/THIN LIQUIDS/UPRIGHT FOR MEALS LEFT OCCIPITAL INFARCT 12/2019 WITH BLURRY VISION 60-70% RIGHT ICA STENOSIS INTRINSIC ATOPIC DERMATITIS C-SPINE DDD WITH MODERATE CENTRAL CANAL STENOSIS AND SEVERE B/L FORAMINAL STENOSIS PER MRI 12/2019 Surgical History ANTERIOR CERVICAL DISCECTOMY AND FUSION X 2 APPENDECTOMY L BREAST BENIGN 70 YEARS AGO TESTICLE SURGERY 15 YEARS AGO L AND R TOTAL KNEE REPLACEMENT CARPAL TUNNEL SURGERY 2012 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 Dyspnea, Lt Headedness Gastrointestinal: Denies: Nausea, Vomiting, Abdominal Pain, Diarrhea Genitourinary: Denies: Dysuria, Frequency, Incontinence, Retention Musculoskeletal: Reports: Arm Pain, Hand Pain, Leg Pain Physical Examination General Exam: Positive: Alert, Cooperative, No Acute Distress Eye Exam: Positive: PERRLA, Conjunctiva & lids normal, EOMI; Negative: Sclera icteric ENT Exam: Positive: Atraumatic, Mucous membr. moist/pink, Pharynx Normal Neck Exam: Positive: Supple; Negative: JVD, thyromegaly Chest Exam: Positive: Clear to auscultation, Normal air movement Heart Exam: Positive: Rate Normal, Regular Rhythm, Normal S1, Normal S2; Negative: Murmurs, Rubs Abdomen Exam: Positive: Normal bowel sounds, Soft; Negative: Tenderness, Hepatospenomegaly Extremity Exam: Positive: Edema, Tenderness (left arm), Other (bruising left arm) Neuro Exam: Positive: Normal Speech, Strength at 5/5 X4 ext, Normal Tone Psych Exam: Positive: Memory Intact, Oriented x 3 Vital Signs Vital Signs Date Time Temp Pulse Resp B/P (MAP) Pulse Ox O2 Delivery O2 Flow Rate FiO2 03/20/20 18:44 74 18 161/75 (103) 97 Room Air 03/20/20 16:00 98.6 Laboratory Data Labs 24H Laboratory Tests 2 03/20/20 15:57: Immature Granulocyte % (Auto) 0.5, Neutrophils (%) (Auto) 40.8, Lymphocytes (%) (Auto) 17.3L, Monocytes (%) (Auto) 8.4H, Eosinophils (%) (Auto) 32.2H, Basophils (%) (Auto) 0.8, Neutrophils # (Auto) 3.0, Lymphocytes # (Auto) 1.3L, Monocytes # (Auto) 0.6, Eosinophils # (Auto) 2.4H, Basophils # (Auto) 0.1, Nucleated Red Blood Cells % (auto) 0.0, Prothrombin Time 14.1H, Prothromb Time International Ratio 1.07, Activated Partial Thromboplast Time 46.7H 03/20/20 15:58: Anion Gap 5L, Glomerular Filtration Rate 37.5L, Calcium Level 8.6L, Total Bilirubin 0.3, Direct Bilirubin 0.1, Aspartate Amino Transf (AST/SGOT) 19, Alanine Aminotransferase (ALT/SGPT) 14, Alkaline Phosphatase 177H, Total Creatine Kinase 71, Creatine Kinase MB 1.1, Creatine Kinase MB Relative Index 1.55, Troponin I < 0.02, Total Protein 5.9L, Albumin 3.3, Albumin/Globulin Ratio 1.3 CBC/BMP Laboratory Tests 03/20/20 15:57 03/20/20 15:58 Assessment/Plan 79 year old male with worsening blindness form occipital stroke, CLL on chemotherapy, CKD stage 3 , Paroxysmal Afib on Eliquis and multiple other medical problems lives alone had a mechanical fall while going down the steps from his trailer when he missed a step and landed on his left arm and right wrist. He complained of throbbing pain on his right arm about 6/10 in intensity with no radiation. he also has mild soreness about 3/10 in his right wrist. Trauma work up in the E was negative for any acute fractures or dislocations. His brother was living with him for the past 6 months but he moved out 1 week ag o since then he has been finding it very difficult to manage by himself alone at home and he is requesting to go to [place]. His mother who is 100 years old lives in [facility] and is interested in going there. Evaluation in the ED showed elevated creatinine from his baseline so he is admitted for COLLEEN. COLLEEN on CKD will continue with IVf overnight Multiple strokes int he past with left large occipital stroke causing blindness cannot manage alone at home anymore PFS consult for placement. statin, ASA, eliquis Hypertension home meds Epilepsy home meds Paroxysmal A fib on eliquis will continue Gout/ hyperuricemia allopurinol Dysphagia LARYNGEAL PENETRATION PER ESOPHAGRAM 11/2019 ST RECOMMENDATION MECH SOFT/THIN LIQUIDS/UPRIGHT FOR MEALS will continue. Plan / VTE VTE Prophylaxis Ordered?: Yes SHAILESH BOOTHE MD Mar 20, 2020 19:15
[2020-03-20] MEDS: DOCUSATE SODIUM 100 MG CAP PO SCH (21:00)
[2020-03-20] MEDS ORDERED: VALT500T PO (21:58)
[2020-03-20] MEDS ORDERED: OMEG1CAP12 PO (21:58)
[2020-03-20] MEDS ORDERED: TIZA2TAB6 PO (21:58)
[2020-03-20] MEDS ORDERED: HALO0.052 TOP (21:58)
[2020-03-20] MEDS ORDERED: ASPI-161 PO (21:58)
[2020-03-20] MEDS ORDERED: TRIA1CR80 TOP (21:58)
[2020-03-20] MEDS ORDERED: PATIENT COMMENT (21:59)
[2020-03-20 22:45] VITALS: BP 143/79
[2020-03-21 06:00] VITALS: BP 158/106
[2020-03-21 07:20] LABS: HEMATOCRIT 34.5 % (42.0-52.0); HEMOGLOBIN 10.9 g/dl (13.5-17.5); MEAN CORPUSCULAR HEMOGLOBIN 27.7 pg (27.0-33.0); MEAN CORPUSCULAR HGB CONC 31.6 g/dl (32.0-36.5); MEAN CORPUSCULAR VOLUME 87.6 fl (80.0-96.0); PLATELET COUNT, AUTOMATED 256 10^3/uL (150-450); RED BLOOD COUNT 3.94 10^6/uL (4.30-6.10); WHITE BLOOD COUNT 6.9 10^3/uL (4.0-10.0)
[2020-03-21 08:04] LABS: CALCIUM LEVEL 8.2 MG/DL (8.8-10.2); CREATININE FOR GFR 1.4 MG/DL (0.70-1.30)
--- NOTE | 2020-03-21 10:27 | REPVR ---
PROCEDURE INFORMATION: Exam: MR Head Without Contrast Exam date and time: 03/21/2020 10:18 AM Age: 79 years old Clinical indication: Other: Fall, R/O CVA TECHNIQUE: Imaging protocol: MR of the head without contrast. COMPARISON: 1. MRI-Brain without Contrast 12/26/2019 12:[address] Head without contrast 03/20/2020 4:17:10 PM FINDINGS: Brain: Stable chronic infarction in the left occipital lobe. There is moderate patchy increased T2 signal intensity within the bilateral cerebral periventricular white matter, consistent with chronic microvascular ischemic changes. There are multiple small focal areas of chronic ischemia in bilateral frontal, parietal and periatrial white matter. Chronic lacunar infarction is seen in the left thalamus. There is no abnormal diffusion weighted signal intensity to suggest an acute ischemic event. There is mild diffuse cerebral atrophy present, consistent with this patient's age. Ventricles: The ventricular system demonstrates moderate diffuse compensatory enlargement. There is a normal-variant cavum septum pellucidum. Bones/joints: Unremarkable. Sinuses: Normal as visualized. No acute sinusitis. Mastoid air cells: Normal as visualized. No mastoid effusion. Orbits: Unremarkable. Soft tissues: Unremarkable. IMPRESSION: 1. No acute infarction, masses or hemorrhage is seen. No acute intracranial abnormality is identified. 2. Diffuse age-related cerebral atrophy and moderate chronic microvascular white matter ischemic changes, without evidence of an acute intracranial abnormality. 3. Stable chronic infarction in the left occipital lobe. 4. Chronic lacunar infarction is seen in the left thalamus. Electronically signed by: Thom Woody On 03/21/2020 10:27:18 AM
[2020-03-21] MEDS: MAGNESIUM OXIDE 400 MG TAB (MAG-OX) PO SCH ×2 (10:32→21:35)
[2020-03-21] MEDS: OMEPRAZOLE 20 MG CAP PO SCH (10:32)
[2020-03-21] MEDS: VITAMIN D 1,000 INTERNATIONAL UNITS TABLET PO SCH (10:33)
[2020-03-21] MEDS: levETIRAcetam 250MG TABLET (KEPPRA) PO SCH ×2 (10:33→21:36)
[2020-03-21] MEDS: DOCUSATE SODIUM 100 MG CAP PO SCH ×2 (10:34→21:35)
[2020-03-21] MEDS: GABAPENTIN 100 MG CAP PO SCH ×2 (10:34→21:35)
[2020-03-21] MEDS: ASPIRIN 81 MG ENTERIC TAB PO SCH (10:34)
[2020-03-21] MEDS: APIXABAN 2.5 MG TAB (ELIQUIS) PO SCH ×2 (10:34→21:35)
[2020-03-21] MEDS: valACYclovir HCL 500 MG TAB PO SCH (10:35)
[2020-03-21] MEDS: allopurinoL 100 MG TAB PO SCH (10:35)
[2020-03-21] MEDS: POTASSIUM CHLORIDE 10 MEQ SR TABLET PO SCH ×2 (10:35→21:36)
[2020-03-21] MEDS: ATORVASTATIN 20 MG TAB PO SCH (10:36)
[2020-03-21] MEDS: METOPROLOL SUCC (TopROL XL) 50MG **XL** TAB PO SCH (10:36)
[2020-03-21 14:00] VITALS: BP 129/83
[2020-03-21] MEDS ORDERED: SODIUM CHLORIDE 0.9% INJ 10 ML SYR IV PRN (15:00)
[2020-03-21] MEDS: SODIUM CHLORIDE 0.9% INJ 10 ML SYR IV SCH (16:10)
--- NOTE | 2020-03-21 17:37 | IPNPDOC ---
Text Note Date of Service The patient was seen on 03/21/20. NOTE Subjective: Pt denies CP/SOB/palpitations. States he can't take care of himself at home. This afternoon he told nurse he is having suicidal ideations. Objective: Vitals: (see below) General: No acute distress, laying comfortably in bed. HEENT: Moist mucous membranes. Neck: No JVD or lymphadenopathy Cardiac: RRR, No murmurs Pulm: Clear to auscultation b/l. No wheezing, rhonchi Abd: NT/ND + BS Ext: No edema or cyanosis Neuro: CN 2-12 intact. blind at baseline. No focal deficits. 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 He complained of throbbing pain on his right arm about 6/10 in intensity with no radiation. he also has mild soreness about 3/10 in his right wrist. Trauma work up in the E was negative for any acute fractures or dislocations. His brother was living with him for the past 6 months but he moved out 1 week ago since then he has been finding it very difficult to manage by himself alone at home and he is requesting to go to [place]. His mother who is 100 years old lives in [facility] and is interested in going there. Evaluation in the ED showed elevated creatinine from his baseline so he is admitted for COLLEEN. Suicidal ideations - 1:1 - Psych consulted; discussed with Dr. Benjamin who will see pt in the am. COLLEEN on CKD - improved. will continue with IVf overnight Multiple strokes int he past with left large occipital stroke causing blindness - MRI brain - no acute CVA cannot manage alone at home anymore PFS consult for placement. statin, ASA, eliquis Mechanical fall - no fx Hypertension home meds Epilepsy home meds Paroxysmal A fib on eliquis will continue Gout/ hyperuricemia allopurinol Dysphagia LARYNGEAL PENETRATION PER ESOPHAGRAM 11/2019 ST RECOMMENDATION MECH SOFT/THIN LIQUIDS/UPRIGHT FOR MEALS will continue. DVT prophy: on Eliquis VS,Fishbone, I+O VS, Fishbone, I+O Laboratory Tests 03/21/20 06:57 Vital Signs Date Time Temp Pulse Resp B/P (MAP) Pulse Ox O2 Delivery O2 Flow Rate FiO2 03/21/20 14:00 98.4 68 18 129/83 (98) 99 Room Air I&O- Last 24 Hours up to 6 AM 03/21/20 05:59 Intake Total 600 ml Output Total 0 ml Balance 600 ml ERICK JONES MD Mar 21, 2020 17:37
[2020-03-21 20:00] VITALS: BP 128/80
[2020-03-21] MEDS: MONTELUKAST 10 MG TAB PO SCH (21:35)
[2020-03-21] MEDS: DOXEPIN 10 MG CAP PO SCH (21:35)
[2020-03-22 06:00] VITALS: BP 167/80
[2020-03-22] MEDS: GABAPENTIN 100 MG CAP PO SCH ×2 (08:56→19:53)
[2020-03-22] MEDS: SODIUM CHLORIDE 0.9% INJ 10 ML SYR IV SCH (08:56)
[2020-03-22] MEDS: METOPROLOL SUCC (TopROL XL) 50MG **XL** TAB PO SCH (08:57)
[2020-03-22] MEDS: allopurinoL 100 MG TAB PO SCH (08:58)
[2020-03-22] MEDS: ATORVASTATIN 20 MG TAB PO SCH (08:58)
[2020-03-22] MEDS: MAGNESIUM OXIDE 400 MG TAB (MAG-OX) PO SCH ×2 (08:59→19:53)
[2020-03-22] MEDS: ASPIRIN 81 MG ENTERIC TAB PO SCH (08:59)
[2020-03-22] MEDS: levETIRAcetam 250MG TABLET (KEPPRA) PO SCH ×2 (09:00→19:54)
[2020-03-22] MEDS: OMEPRAZOLE 20 MG CAP PO SCH (09:00)
[2020-03-22] MEDS: APIXABAN 2.5 MG TAB (ELIQUIS) PO SCH ×2 (09:01→19:54)
[2020-03-22] MEDS: POTASSIUM CHLORIDE 10 MEQ SR TABLET PO SCH ×2 (09:02→19:54)
[2020-03-22] MEDS: VITAMIN D 1,000 INTERNATIONAL UNITS TABLET PO SCH (09:02)
[2020-03-22] MEDS: valACYclovir HCL 500 MG TAB PO SCH (09:03)
[2020-03-22] MEDS: DOCUSATE SODIUM 100 MG CAP PO SCH ×2 (09:03→19:53)
--- NOTE | 2020-03-22 10:48 | IPNPDOC ---
Text Note Date of Service The patient was seen on 03/22/20. NOTE Subjective: Pt denies CP/SOB/palpitations. States he can't take care of himself at home. This afternoon he told nurse he is having suicidal ideations. Objective: Vitals: (see below) General: No acute distress, laying comfortably in bed. HEENT: Moist mucous membranes. Neck: No JVD or lymphadenopathy Cardiac: RRR, No murmurs Pulm: Clear to auscultation b/l. No wheezing, rhonchi Abd: NT/ND + BS Ext: No edema or cyanosis Neuro: CN 2-12 intact. blind at baseline. No focal deficits. 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 He complained of throbbing pain on his right arm about 6/10 in intensity with no radiation. he also has mild soreness about 3/10 in his right wrist. Trauma work up in the E was negative for any acute fractures or dislocations. His brother was living with him for the past 6 months but he moved out 1 week ago since then he has been finding it very difficult to manage by himself alone at home and he is requesting to go to [place]. His mother who is 100 years old lives in [facility] and is interested in going there. Evaluation in the ED showed elevated creatinine from his baseline so he is admitted for COLLEEN. Suicidal ideations - Resolved - Discussed with Dr. Benjamin, recommends d/c 1:1 as pt is not suicidal and does not need IMHU. - Psych consult appreciated COLLEEN on CKD - improved. Multiple strokes int he past with left large occipital stroke causing blindness - MRI brain - no acute CVA cannot manage alone at home anymore PFS consult for placement. statin, ASA, eliquis Mechanical fall - no fx Hypertension home meds Epilepsy home meds Paroxysmal A fib on eliquis will continue Gout/ hyperuricemia allopurinol Dysphagia LARYNGEAL PENETRATION PER ESOPHAGRAM 11/2019 [facility] SO[facility]/THIN LIQUIDS/UPRIGHT FOR MEALS will continue. DVT prophy: on Eliquis Pending placement Change to ALC VS,Fishbone, I+O VS, Fishbone, I+O Vital Signs Date Time Temp Pulse Resp B/P (MAP) Pulse Ox O2 Delivery O2 Flow Rate FiO2 03/22/20 08:57 73 167/80 03/22/20 06:00 98.7 18 96 Room Air I&O- Last 24 Hours up to 6 AM 03/22/20 06:00 Intake Total 2475 ml Output Total 300 ml Balance 2175 ml ERICK JONES MD Mar 22, 2020 10:48
[2020-03-22 11:22] LABS: HEMATOCRIT 36.4 % (42.0-52.0); HEMOGLOBIN 11.2 g/dl (13.5-17.5); MEAN CORPUSCULAR HEMOGLOBIN 27.2 pg (27.0-33.0); MEAN CORPUSCULAR HGB CONC 30.8 g/dl (32.0-36.5); MEAN CORPUSCULAR VOLUME 88.3 fl (80.0-96.0); PLATELET COUNT, AUTOMATED 243 10^3/uL (150-450); RED BLOOD COUNT 4.12 10^6/uL (4.30-6.10); WHITE BLOOD COUNT 7.3 10^3/uL (4.0-10.0)
[2020-03-22 11:43] LABS: CALCIUM LEVEL 8.8 MG/DL (8.8-10.2); CREATININE FOR GFR 1.42 MG/DL (0.70-1.30); GLOMERULAR FILTRATION RATE 51.2 (>42); MAGNESIUM LEVEL 2.1 MG/DL (1.8-2.4); POTASSIUM SERUM 4.4 MEQ/L (3.5-5.1)
[2020-03-22] MEDS: amLODIPine 5 MG TAB PO SCH (12:30)
[2020-03-22 14:00] VITALS: BP 130/67
--- NOTE | 2020-03-22 16:12 | MHIPNPDOC ---
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 He complained of throbbing pain on his right arm about 6/10 in intensity with no radiation. he also has mild soreness about 3/10 in his right wrist. Trauma work up in the E was negative for any acute fractures or dislocations. His brother was living with him for the past 6 months but he moved out 1 week ago since then he has been finding it very difficult to manage by himself alone at home and he is requesting to go to [place]. His mother who is 100 years old lives in [facility] and is interested in going there. Evaluation in the ED showed elevated creatinine from his baseline so he is admitted for COLLEEN." VITAL SIGNS: See below. NEW TEST RESULTS: See below CURRENT MEDICATIONS: See below. MENTAL STATUS EXAMINATION: Patient is a 79-year old male, who is alert, cooperative, dressed in hospital clothes, laying in bed. Speech: Is tangential and circumstantial mos of the time. Rhythm, rate and tone are normal. Volume was loud at times Language skills are fair. Thought processes including: circumstantial, tangential. Thought content: negative for suicidal/homicidal ideation at this time. As a matter of fact, he says he would like to go home and he would be fine there if he could only have someone that would come over and have some company. He said he would enjoy going for a ride in a car if someone would be willing to take him. He denies thought delusions. Description of associations: mildly loose, he is tangential and circumstantial. Description of abnormal or psychotic thoughts: Denies thought delusions, denies TAV hallucinations but reports feeing very angry towards his children because he claims they stole money from him and his ( this would need to be confirmed) and that they never offered to help when his . ) Judgment: fair Insight: Fair Orientation: to place and person but not completely to date and time. Recent and remote memory: He could not tell me why he was brought to the Hospital, he said he had come to the Hospital because he needed some company Attention span and concentration: fair.. Mood: euthymic Affect: congruent with mood, reactive, full, smiling and joking at times. DIAGNOSES: 1. Adjustment disorder with anxious/depressed mood ASSESSMENT: The patient is not suicidal, he is future orientated, he says he would prefer to go home instead of going to a [facility]. he says he knows he woul be OK if somebody would come over to his house and keep him company, help him out in some way. He says he has 2 bothers and both of them have Power of Meat Wrapper. he says he wouldn't like to be connected to a ventilator or other medical devices in case "something would happen to me, i don't like that, I don't want that. if something like that happen, I want to go". he adamantly denies suicidal ideation, plans or intents at this time because he says his "who is in heaven" and God wouldn't like that. he has no previous risk factors, he says he has never attempted suicide although one of his uncles hung himself many years ago. The patient admits to feel lonely and have no support, except for one neighbor that is able to help when he needs it. Dr. Garduno was informed of this evaluation and my recommendation is to establish him with services or to transfer him to an assisted living facility when possible. the patient is not in danger to himself or others at this time. MANAGEMENT PLAN: spoke with Dr. Garduno a bout the possibility of establishing services for the patient if he goes back home or to arrange for an Assisted Living facility/[facility] if possible. i don't think he needs medications, his depression is secondary to his life situation and he knows it, besides, he says he doesn't want to take more medications. TIME SPENT: 30 minutes. Vital Signs Vital Signs Date Time Temp Pulse Resp B/P (MAP) Pulse Ox O2 Delivery O2 Flow Rate FiO2 03/22/20 12:30 60 128/65 03/22/20 06:00 98.7 18 96 Room Air Laboratory Data 24H Labs Laboratory Tests 2 03/22/20 10:35: Nucleated Red Blood Cells % (auto) 0.0, Anion Gap 5L, Glomerular Filtration Rate 51.2, Calcium Level 8.8, Magnesium Level 2.1 CBC/BMP Laboratory Tests 03/22/20 10:35 Current Medications Current Medications Medications (Trade) Dose Ordered Sig/Kristen Route PRN Reason Start Time Stop Time Status Last Admin Dose Admin Acetaminophen (Tylenol Tab) 650 mg Q4H PRN PO PAIN OR FEVER 03/20/20 20:45 Al Hydrox/Mg Hydrox/Simethicone (Mylanta) 30 ml DAILY PRN PO DYSPEPSIA 03/20/20 20:45 Allopurinol (Zyloprim) 100 mg DAILY PO 03/21/20 09:00 03/22/20 08:58 Amlodipine Besylate (Norvasc) 5 mg DAILY PO 03/22/20 09:00 03/22/20 12:30 Apixaban (Eliquis) 2.5 mg BID PO 03/21/20 09:00 03/22/20 09:01 Aspirin (Ecotrin) 81 mg DAILY PO 03/21/20 09:00 03/22/20 08:59 Atorvastatin Calcium (Lipitor) 80 mg DAILY PO 03/21/20 09:00 03/22/20 08:58 Docusate Sodium (Colace) 100 mg BID PO 03/20/20 21:00 03/22/20 09:03 Doxepin HCl (SINEquan) 10 mg QHS PO 03/21/20 21:00 03/21/20 21:35 Gabapentin (Neurontin) 100 mg BID PO 03/21/20 09:00 03/22/20 08:56 Heparin Sodium (Heparin (Flush)) 500 units ASDIRECTED PRN IV SEE LABEL COMMENTS 03/21/20 15:00 Heparin Sodium (Heparin (Flush)) 500 units DAILY IV 03/21/20 09:00 03/22/20 08:56 Home Med (Med Rec Complete!) ASDIRECTED XX 03/20/20 22:00 03/20/20 22:03 DC Levetiracetam (Keppra) 500 mg BID PO 03/21/20 09:00 03/22/20 09:00 Magnesium Hydroxide (Milk Of Magnesia) 30 ml DAILY PRN PO CONSTIPATION 03/20/20 20:45 Magnesium Oxide (Mag-Ox) 400 mg BID PO 03/21/20 09:00 03/22/20 08:59 Metoprolol Succinate (TopROL XL) 50 mg DAILY PO 03/21/20 09:00 03/22/20 08:57 Montelukast Sodium (Singulair) 10 mg QHS PO 03/21/20 21:00 03/21/20 21:35 Omeprazole (PriLOSEC) 40 mg DAILY PO 03/21/20 09:00 03/22/20 09:00 Potassium Chloride (Micro-K Extencaps) 20 meq BID PO 03/21/20 09:00 03/22/20 09:02 Sodium Chloride (Saline Lock Flush) 10 ml ASDIRECTED PRN IV SEE LABEL COMMENTS 03/21/20 15:00 Sodium Chloride (Saline Lock Flush) 10 ml DAILY IV 03/21/20 09:00 03/22/20 08:56 Valacyclovir HCl (Valtrex) 500 mg DAILY PO 03/21/20 09:00 03/22/20 09:03 Vitamin D (Vitamin D) 2,000 units DAILY PO 03/21/20 09:00 03/22/20 09:02 Allergies Coded Allergies: ciclopirox (Verified Allergy, Intermediate, rash, hives, 06/12/19) JESSICA ZAIDI MD Mar 22, 2020 16:12
[2020-03-22] MEDS: MONTELUKAST 10 MG TAB PO SCH (19:53)
[2020-03-22] MEDS: DOXEPIN 10 MG CAP PO SCH (19:54)
[2020-03-22 22:00] VITALS: BP 131/68
[2020-03-23 06:00] VITALS: BP 138/69
[2020-03-23] MEDS: DOCUSATE SODIUM 100 MG CAP PO SCH ×2 (09:00→20:15)
[2020-03-23] MEDS: METOPROLOL SUCC (TopROL XL) 50MG **XL** TAB PO SCH (09:00)
[2020-03-23] MEDS: APIXABAN 2.5 MG TAB (ELIQUIS) PO SCH ×2 (09:15→20:14)
[2020-03-23] MEDS: MAGNESIUM OXIDE 400 MG TAB (MAG-OX) PO SCH ×2 (09:15→20:14)
[2020-03-23] MEDS: VITAMIN D 1,000 INTERNATIONAL UNITS TABLET PO SCH (09:15)
[2020-03-23] MEDS: ASPIRIN 81 MG ENTERIC TAB PO SCH (09:15)
[2020-03-23] MEDS: ATORVASTATIN 20 MG TAB PO SCH (09:15)
[2020-03-23] MEDS: levETIRAcetam 250MG TABLET (KEPPRA) PO SCH ×2 (09:15→20:14)
[2020-03-23] MEDS: valACYclovir HCL 500 MG TAB PO SCH (09:16)
[2020-03-23] MEDS: OMEPRAZOLE 20 MG CAP PO SCH (09:16)
[2020-03-23] MEDS: POTASSIUM CHLORIDE 10 MEQ SR TABLET PO SCH ×2 (09:16→20:14)
[2020-03-23] MEDS: amLODIPine 5 MG TAB PO SCH (09:16)
[2020-03-23] MEDS: allopurinoL 100 MG TAB PO SCH (09:17)
[2020-03-23] MEDS: GABAPENTIN 100 MG CAP PO SCH ×2 (09:17→20:14)
[2020-03-23] MEDS: SODIUM CHLORIDE 0.9% INJ 10 ML SYR IV SCH (09:25)
[2020-03-23 14:00] VITALS: BP 118/68
[2020-03-23 20:00] VITALS: BP 148/79
[2020-03-23] MEDS: DOXEPIN 10 MG CAP PO SCH (20:14)
[2020-03-23] MEDS: MONTELUKAST 10 MG TAB PO SCH (20:14)
[2020-03-24 06:00] VITALS: BP 156/65
[2020-03-24] MEDS: MAGNESIUM OXIDE 400 MG TAB (MAG-OX) PO SCH ×2 (08:50→21:17)
[2020-03-24] MEDS: DOCUSATE SODIUM 100 MG CAP PO SCH ×2 (08:50→21:17)
[2020-03-24] MEDS: levETIRAcetam 250MG TABLET (KEPPRA) PO SCH ×2 (08:50→21:17)
[2020-03-24] MEDS: GABAPENTIN 100 MG CAP PO SCH ×2 (08:50→21:17)
[2020-03-24] MEDS: POTASSIUM CHLORIDE 10 MEQ SR TABLET PO SCH ×2 (08:51→21:17)
[2020-03-24] MEDS: APIXABAN 2.5 MG TAB (ELIQUIS) PO SCH ×2 (08:51→21:17)
[2020-03-24] MEDS: ASPIRIN 81 MG ENTERIC TAB PO SCH (08:51)
[2020-03-24] MEDS: ATORVASTATIN 20 MG TAB PO SCH (08:52)
[2020-03-24] MEDS: VITAMIN D 1,000 INTERNATIONAL UNITS TABLET PO SCH (08:52)
[2020-03-24] MEDS: amLODIPine 5 MG TAB PO SCH (08:58)
[2020-03-24] MEDS: OMEPRAZOLE 20 MG CAP PO SCH (09:00)
[2020-03-24] MEDS: ANUSOL HC CREAM 30GM TOP SCH ×2 (09:00→20:27)
[2020-03-24] MEDS: METOPROLOL SUCC (TopROL XL) 50MG **XL** TAB PO SCH (09:00)
[2020-03-24] MEDS: SODIUM CHLORIDE 0.9% INJ 10 ML SYR IV SCH (09:02)
[2020-03-24] MEDS: allopurinoL 100 MG TAB PO SCH (09:03)
[2020-03-24] MEDS: valACYclovir HCL 500 MG TAB PO SCH (09:13)
[2020-03-24] MEDS: MONTELUKAST 10 MG TAB PO SCH (21:17)
[2020-03-24] MEDS: DOXEPIN 10 MG CAP PO SCH (21:30)
[2020-03-25 06:00] VITALS: BP 164/78
[2020-03-25] MEDS: DOCUSATE SODIUM 100 MG CAP PO SCH ×2 (08:37→21:54)
[2020-03-25] MEDS: levETIRAcetam 250MG TABLET (KEPPRA) PO SCH ×2 (08:37→21:56)
[2020-03-25] MEDS: VITAMIN D 1,000 INTERNATIONAL UNITS TABLET PO SCH (08:37)
[2020-03-25] MEDS: valACYclovir HCL 500 MG TAB PO SCH (08:37)
[2020-03-25] MEDS: POTASSIUM CHLORIDE 10 MEQ SR TABLET PO SCH ×2 (08:38→21:55)
[2020-03-25] MEDS: MAGNESIUM OXIDE 400 MG TAB (MAG-OX) PO SCH ×2 (08:38→21:55)
[2020-03-25] MEDS: GABAPENTIN 100 MG CAP PO SCH ×2 (08:39→21:56)
[2020-03-25] MEDS: APIXABAN 2.5 MG TAB (ELIQUIS) PO SCH ×2 (08:39→21:56)
[2020-03-25] MEDS: OMEPRAZOLE 20 MG CAP PO SCH (08:39)
[2020-03-25] MEDS: ATORVASTATIN 20 MG TAB PO SCH (08:44)
[2020-03-25] MEDS: allopurinoL 100 MG TAB PO SCH (08:44)
[2020-03-25] MEDS: ASPIRIN 81 MG ENTERIC TAB PO SCH (08:44)
[2020-03-25] MEDS: amLODIPine 5 MG TAB PO SCH (08:44)
[2020-03-25] MEDS: SODIUM CHLORIDE 0.9% INJ 10 ML SYR IV SCH (08:45)
[2020-03-25] MEDS: ANUSOL HC CREAM 30GM TOP SCH ×2 (08:47→21:54)
[2020-03-25] MEDS: METOPROLOL SUCC (TopROL XL) 50MG **XL** TAB PO SCH (08:53)
[2020-03-25] MEDS: DOXEPIN 10 MG CAP PO SCH (21:55)
[2020-03-25] MEDS: MONTELUKAST 10 MG TAB PO SCH (21:56)
[2020-03-26 06:00] VITALS: BP 135/66
[2020-03-26] MEDS: METOPROLOL SUCC (TopROL XL) 50MG **XL** TAB PO SCH (09:14)
[2020-03-26] MEDS: GABAPENTIN 100 MG CAP PO SCH ×2 (09:15→21:06)
[2020-03-26] MEDS: MAGNESIUM OXIDE 400 MG TAB (MAG-OX) PO SCH ×2 (09:15→21:06)
[2020-03-26] MEDS: allopurinoL 100 MG TAB PO SCH (09:15)
[2020-03-26] MEDS: OMEPRAZOLE 20 MG CAP PO SCH (09:15)
[2020-03-26] MEDS: ATORVASTATIN 20 MG TAB PO SCH (09:15)
[2020-03-26] MEDS: amLODIPine 5 MG TAB PO SCH (09:15)
[2020-03-26] MEDS: valACYclovir HCL 500 MG TAB PO SCH (09:16)
[2020-03-26] MEDS: VITAMIN D 1,000 INTERNATIONAL UNITS TABLET PO SCH (09:16)
[2020-03-26] MEDS: DOCUSATE SODIUM 100 MG CAP PO SCH ×2 (09:16→21:06)
[2020-03-26] MEDS: ASPIRIN 81 MG ENTERIC TAB PO SCH (09:16)
[2020-03-26] MEDS: levETIRAcetam 250MG TABLET (KEPPRA) PO SCH ×2 (09:16→21:05)
[2020-03-26] MEDS: POTASSIUM CHLORIDE 10 MEQ SR TABLET PO SCH ×2 (09:16→21:07)
[2020-03-26] MEDS: APIXABAN 2.5 MG TAB (ELIQUIS) PO SCH ×2 (09:16→21:06)
[2020-03-26] MEDS: SODIUM CHLORIDE 0.9% INJ 10 ML SYR IV SCH (09:18)
[2020-03-26] MEDS: ANUSOL HC CREAM 30GM TOP SCH ×2 (10:47→21:07)
[2020-03-26] MEDS: ACETAMINOPHEN TAB 650MG DOSE (2X325MG) PO PRN (21:05)
[2020-03-26] MEDS: MONTELUKAST 10 MG TAB PO SCH (21:06)
[2020-03-26] MEDS: DOXEPIN 10 MG CAP PO SCH (21:06)
[2020-03-27 06:00] VITALS: BP 119/57
[2020-03-27] MEDS: GABAPENTIN 100 MG CAP PO SCH ×2 (08:47→21:55)
[2020-03-27] MEDS: APIXABAN 2.5 MG TAB (ELIQUIS) PO SCH ×2 (08:47→21:55)
[2020-03-27] MEDS: levETIRAcetam 250MG TABLET (KEPPRA) PO SCH ×2 (08:47→21:54)
[2020-03-27] MEDS: valACYclovir HCL 500 MG TAB PO SCH (08:47)
[2020-03-27] MEDS: MAGNESIUM OXIDE 400 MG TAB (MAG-OX) PO SCH ×2 (08:48→21:54)
[2020-03-27] MEDS: ASPIRIN 81 MG ENTERIC TAB PO SCH (08:48)
[2020-03-27] MEDS: OMEPRAZOLE 20 MG CAP PO SCH (08:48)
[2020-03-27] MEDS: VITAMIN D 1,000 INTERNATIONAL UNITS TABLET PO SCH (08:48)
[2020-03-27] MEDS: DOCUSATE SODIUM 100 MG CAP PO SCH ×2 (08:48→21:55)
[2020-03-27] MEDS: allopurinoL 100 MG TAB PO SCH (08:48)
[2020-03-27] MEDS: ATORVASTATIN 20 MG TAB PO SCH (08:49)
[2020-03-27] MEDS: POTASSIUM CHLORIDE 10 MEQ SR TABLET PO SCH ×2 (08:49→21:55)
[2020-03-27] MEDS: amLODIPine 5 MG TAB PO SCH (08:50)
[2020-03-27] MEDS: ANUSOL HC CREAM 30GM TOP SCH ×2 (08:54→21:56)
[2020-03-27] MEDS: METOPROLOL SUCC (TopROL XL) 50MG **XL** TAB PO SCH (09:00)
[2020-03-27] MEDS: ACETAMINOPHEN TAB 650MG DOSE (2X325MG) PO PRN (21:55)
[2020-03-27] MEDS: DOXEPIN 10 MG CAP PO SCH (21:55)
[2020-03-27] MEDS: MONTELUKAST 10 MG TAB PO SCH (21:55)
[2020-03-28 06:00] VITALS: BP 149/63
[2020-03-28] MEDS: VITAMIN D 1,000 INTERNATIONAL UNITS TABLET PO SCH (09:10)
[2020-03-28] MEDS: MAGNESIUM OXIDE 400 MG TAB (MAG-OX) PO SCH ×2 (09:10→21:07)
[2020-03-28] MEDS: levETIRAcetam 250MG TABLET (KEPPRA) PO SCH ×2 (09:10→21:08)
[2020-03-28] MEDS: OMEPRAZOLE 20 MG CAP PO SCH (09:11)
[2020-03-28] MEDS: DOCUSATE SODIUM 100 MG CAP PO SCH ×2 (09:11→21:08)
[2020-03-28] MEDS: valACYclovir HCL 500 MG TAB PO SCH (09:11)
[2020-03-28] MEDS: POTASSIUM CHLORIDE 10 MEQ SR TABLET PO SCH ×2 (09:11→21:07)
[2020-03-28] MEDS: ATORVASTATIN 20 MG TAB PO SCH (09:12)
[2020-03-28] MEDS: GABAPENTIN 100 MG CAP PO SCH ×2 (09:12→21:08)
[2020-03-28] MEDS: ASPIRIN 81 MG ENTERIC TAB PO SCH (09:12)
[2020-03-28] MEDS: METOPROLOL SUCC (TopROL XL) 50MG **XL** TAB PO SCH (09:13)
[2020-03-28] MEDS: amLODIPine 5 MG TAB PO SCH (09:14)
[2020-03-28] MEDS: allopurinoL 100 MG TAB PO SCH (09:14)
[2020-03-28] MEDS: APIXABAN 2.5 MG TAB (ELIQUIS) PO SCH ×2 (09:14→21:08)
[2020-03-28] MEDS: ANUSOL HC CREAM 30GM TOP SCH ×2 (09:15→21:09)
[2020-03-28 14:00] VITALS: BP 140/65
[2020-03-28] MEDS: DOXEPIN 10 MG CAP PO SCH (21:07)
[2020-03-28] MEDS: MONTELUKAST 10 MG TAB PO SCH (21:08)
[2020-03-28] MEDS: ACETAMINOPHEN TAB 650MG DOSE (2X325MG) PO PRN (21:08)
[2020-03-29 06:00] VITALS: BP 137/65
[2020-03-29] MEDS: OMEPRAZOLE 20 MG CAP PO SCH (09:38)
[2020-03-29] MEDS: levETIRAcetam 250MG TABLET (KEPPRA) PO SCH ×2 (09:38→20:29)
[2020-03-29] MEDS: MAGNESIUM OXIDE 400 MG TAB (MAG-OX) PO SCH ×2 (09:39→20:28)
[2020-03-29] MEDS: ATORVASTATIN 20 MG TAB PO SCH (09:39)
[2020-03-29] MEDS: VITAMIN D 1,000 INTERNATIONAL UNITS TABLET PO SCH (09:39)
[2020-03-29] MEDS: ASPIRIN 81 MG ENTERIC TAB PO SCH (09:40)
[2020-03-29] MEDS: METOPROLOL SUCC (TopROL XL) 50MG **XL** TAB PO SCH (09:40)
[2020-03-29] MEDS: POTASSIUM CHLORIDE 10 MEQ SR TABLET PO SCH ×2 (09:40→20:28)
[2020-03-29] MEDS: APIXABAN 2.5 MG TAB (ELIQUIS) PO SCH ×2 (09:40→20:26)
[2020-03-29] MEDS: DOCUSATE SODIUM 100 MG CAP PO SCH ×2 (09:40→20:26)
[2020-03-29] MEDS: valACYclovir HCL 500 MG TAB PO SCH (09:40)
[2020-03-29] MEDS: ANUSOL HC CREAM 30GM TOP SCH ×2 (09:41→20:30)
[2020-03-29] MEDS: amLODIPine 5 MG TAB PO SCH (09:41)
[2020-03-29] MEDS: GABAPENTIN 100 MG CAP PO SCH ×2 (09:41→20:27)
[2020-03-29] MEDS: allopurinoL 100 MG TAB PO SCH (09:41)
[2020-03-29] MEDS: MONTELUKAST 10 MG TAB PO SCH (20:27)
[2020-03-29] MEDS: DOXEPIN 10 MG CAP PO SCH (20:27)
[2020-03-29] MEDS: ACETAMINOPHEN TAB 650MG DOSE (2X325MG) PO PRN (20:29)
[2020-03-30 06:00] VITALS: BP 139/69
[2020-03-30] MEDS: VITAMIN D 1,000 INTERNATIONAL UNITS TABLET PO SCH (09:24)
[2020-03-30] MEDS: ASPIRIN 81 MG ENTERIC TAB PO SCH (09:25)
[2020-03-30] MEDS: ATORVASTATIN 20 MG TAB PO SCH (09:25)
[2020-03-30] MEDS: levETIRAcetam 250MG TABLET (KEPPRA) PO SCH ×2 (09:25→22:02)
[2020-03-30] MEDS: POTASSIUM CHLORIDE 10 MEQ SR TABLET PO SCH ×2 (09:25→22:03)
[2020-03-30] MEDS: valACYclovir HCL 500 MG TAB PO SCH (09:25)
[2020-03-30] MEDS: APIXABAN 2.5 MG TAB (ELIQUIS) PO SCH ×2 (09:25→22:03)
[2020-03-30] MEDS: GABAPENTIN 100 MG CAP PO SCH ×2 (09:26→22:02)
[2020-03-30] MEDS: DOCUSATE SODIUM 100 MG CAP PO SCH ×2 (09:26→22:03)
[2020-03-30] MEDS: MAGNESIUM OXIDE 400 MG TAB (MAG-OX) PO SCH ×2 (09:26→22:02)
[2020-03-30] MEDS: OMEPRAZOLE 20 MG CAP PO SCH (09:26)
[2020-03-30] MEDS: allopurinoL 100 MG TAB PO SCH (09:26)
[2020-03-30] MEDS: ANUSOL HC CREAM 30GM TOP SCH ×2 (09:27→22:01)
[2020-03-30] MEDS: amLODIPine 5 MG TAB PO SCH (09:29)
[2020-03-30] MEDS: METOPROLOL SUCC (TopROL XL) 50MG **XL** TAB PO SCH (09:33)
--- NOTE | 2020-03-30 13:53 | IPNPDOC ---
Text Note Date of Service The patient was seen on 03/30/20. NOTE ubjective: Pt denies CP/SOB/palpitations. Feels well. No suicidal ideations. Objective: Vitals: (see below) General: No acute distress, laying comfortably in bed. HEENT: Moist mucous membranes. Neck: No JVD or lymphadenopathy Cardiac: RRR, No murmurs Pulm: Clear to auscultation b/l. No wheezing, rhonchi Abd: NT/ND + BS Ext: Trace edema BLE. No cyanosis Neuro: CN 2-12 intact. blind at baseline. No focal deficits. 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 He complained of throbbing pain on his right arm about 6/10 in intensity with no radiation. he also has mild soreness about 3/10 in his right wrist. Trauma work up in the E was negative for any acute fractures or dislocations. His brother was living with him for the past 6 months but he moved out 1 week ago since then he has been finding it very difficult to manage by himself alone at home and he is requesting to go to [place]. His mother who is 100 years old lives in [facility] and is interested in going there. Evaluation in the ED showed elevated creatinine from his baseline so he is admitted for COLLEEN. Suicidal ideations - Resolved - Discussed with Dr. Benjamin, recommends d/c 1:1 as pt is not suicidal and does not need IMHU. - Psych consult appreciated COLLEEN on CKD - improved. Multiple strokes int he past with left large occipital stroke causing blindness - MRI brain - no acute CVA cannot manage alone at home anymore PFS consult for placement. statin, ASA, eliquis Mechanical fall - no fx Hypertension home meds Epilepsy home meds Paroxysmal A fib on eliquis will continue Gout/ hyperuricemia allopurinol Dysphagia LARYNGEAL PENETRATION PER ESOPHAGRAM 11/2019 ST RECOMMENDATION MECH SOFT/THIN LIQUIDS/UPRIGHT FOR MEALS will continue. LE edema - lasix 40mg po x 1 DVT prophy: on Eliquis Pending placement ALC status VS,Fishbone, I+O VS, Fishbone, I+O Vital Signs Date Time Temp Pulse Resp B/P (MAP) Pulse Ox O2 Delivery O2 Flow Rate FiO2 03/30/20 09:33 64 03/30/20 09:29 135/70 03/30/20 06:00 97.2 18 99 Room Air I&O- Last 24 Hours up to 6 AM 03/30/20 06:00 Intake Total 1610 ml Balance 1610 ml ERICK JONES MD Mar 30, 2020 13:53
[2020-03-30 14:00] VITALS: BP 131/70
[2020-03-30] MEDS ORDERED: FUROSEMIDE 40 MG TAB PO ONE (14:00)
[2020-03-30 15:05] LABS: BLOOD UREA NITROGEN 13 MG/DL (7-18); CALCIUM LEVEL 8.2 MG/DL (8.8-10.2); CARBON DIOXIDE LEVEL 28 MEQ/L (21-32); CHLORIDE LEVEL 107 MEQ/L (98-107); CREATININE FOR GFR 1.05 MG/DL (0.70-1.30); GLOMERULAR FILTRATION RATE > 60.0 (>42); GLUCOSE, FASTING 104 MG/DL (70-100); HEMATOCRIT 33.6 % (42.0-52.0); HEMOGLOBIN 10.3 g/dl (13.5-17.5); MAGNESIUM LEVEL 2.3 MG/DL (1.8-2.4); MEAN CORPUSCULAR HGB CONC 30.7 g/dl (32.0-36.5); MEAN CORPUSCULAR VOLUME 88.2 fl (80.0-96.0); PLATELET COUNT, AUTOMATED 210 10^3/uL (150-450); POTASSIUM SERUM 4.6 MEQ/L (3.5-5.1); RED BLOOD COUNT 3.81 10^6/uL (4.30-6.10); SODIUM LEVEL 140 MEQ/L (136-145); WHITE BLOOD COUNT 6.3 10^3/uL (4.0-10.0)
[2020-03-30] MEDS: MONTELUKAST 10 MG TAB PO SCH (22:02)
[2020-03-30] MEDS: DOXEPIN 10 MG CAP PO SCH (22:03)
[2020-03-30] MEDS: ACETAMINOPHEN TAB 650MG DOSE (2X325MG) PO PRN (22:05)
[2020-03-31 06:00] VITALS: BP 104/62
[2020-03-31] MEDS: VITAMIN D 1,000 INTERNATIONAL UNITS TABLET PO SCH (09:46)
[2020-03-31] MEDS: levETIRAcetam 250MG TABLET (KEPPRA) PO SCH ×2 (09:46→21:24)
[2020-03-31] MEDS: GABAPENTIN 100 MG CAP PO SCH ×2 (09:47→21:26)
[2020-03-31] MEDS: OMEPRAZOLE 20 MG CAP PO SCH (09:47)
[2020-03-31] MEDS: ATORVASTATIN 20 MG TAB PO SCH (09:47)
[2020-03-31] MEDS: valACYclovir HCL 500 MG TAB PO SCH (09:47)
[2020-03-31] MEDS: ASPIRIN 81 MG ENTERIC TAB PO SCH (09:47)
[2020-03-31] MEDS: DOCUSATE SODIUM 100 MG CAP PO SCH ×2 (09:47→21:26)
[2020-03-31] MEDS: POTASSIUM CHLORIDE 10 MEQ SR TABLET PO SCH ×2 (09:47→21:25)
[2020-03-31] MEDS: allopurinoL 100 MG TAB PO SCH (09:47)
[2020-03-31] MEDS: APIXABAN 2.5 MG TAB (ELIQUIS) PO SCH ×2 (09:47→21:26)
[2020-03-31] MEDS: MAGNESIUM OXIDE 400 MG TAB (MAG-OX) PO SCH ×2 (09:47→21:24)
[2020-03-31] MEDS: amLODIPine 5 MG TAB PO SCH (09:49)
[2020-03-31] MEDS: METOPROLOL SUCC (TopROL XL) 50MG **XL** TAB PO SCH (09:50)
[2020-03-31] MEDS: ANUSOL HC CREAM 30GM TOP SCH ×2 (09:51→21:26)
[2020-03-31] MEDS: MONTELUKAST 10 MG TAB PO SCH (21:25)
[2020-03-31] MEDS: ACETAMINOPHEN TAB 650MG DOSE (2X325MG) PO PRN (21:25)
[2020-03-31] MEDS: DOXEPIN 10 MG CAP PO SCH (21:26)
[2020-04-01 06:00] VITALS: BP 120/69
[2020-04-01] MEDS: METOPROLOL SUCC (TopROL XL) 50MG **XL** TAB PO SCH (09:00)
[2020-04-01] MEDS: OMEPRAZOLE 20 MG CAP PO SCH (09:47)
[2020-04-01] MEDS: DOCUSATE SODIUM 100 MG CAP PO SCH ×2 (09:47→21:02)
[2020-04-01] MEDS: POTASSIUM CHLORIDE 10 MEQ SR TABLET PO SCH ×2 (09:48→21:02)
[2020-04-01] MEDS: GABAPENTIN 100 MG CAP PO SCH ×2 (09:48→21:01)
[2020-04-01] MEDS: ATORVASTATIN 20 MG TAB PO SCH (09:48)
[2020-04-01] MEDS: APIXABAN 2.5 MG TAB (ELIQUIS) PO SCH ×2 (09:48→21:02)
[2020-04-01] MEDS: VITAMIN D 1,000 INTERNATIONAL UNITS TABLET PO SCH (09:48)
[2020-04-01] MEDS: valACYclovir HCL 500 MG TAB PO SCH (09:48)
[2020-04-01] MEDS: levETIRAcetam 250MG TABLET (KEPPRA) PO SCH ×2 (09:48→21:02)
[2020-04-01] MEDS: MAGNESIUM OXIDE 400 MG TAB (MAG-OX) PO SCH ×2 (09:48→21:02)
[2020-04-01] MEDS: amLODIPine 5 MG TAB PO SCH (09:49)
[2020-04-01] MEDS: ASPIRIN 81 MG ENTERIC TAB PO SCH (09:49)
[2020-04-01] MEDS: allopurinoL 100 MG TAB PO SCH (09:49)
[2020-04-01] MEDS: ANUSOL HC CREAM 30GM TOP SCH ×2 (09:50→21:03)
[2020-04-01] MEDS: DOXEPIN 10 MG CAP PO SCH (21:02)
[2020-04-01] MEDS: MONTELUKAST 10 MG TAB PO SCH (21:02)
[2020-04-01] MEDS: ACETAMINOPHEN TAB 650MG DOSE (2X325MG) PO PRN (21:03)
[2020-04-02 06:00] VITALS: BP 127/67
[2020-04-02] MEDS: DOCUSATE SODIUM 100 MG CAP PO SCH ×2 (08:45→20:24)
[2020-04-02] MEDS: OMEPRAZOLE 20 MG CAP PO SCH (08:45)
[2020-04-02] MEDS: valACYclovir HCL 500 MG TAB PO SCH (08:45)
[2020-04-02] MEDS: allopurinoL 100 MG TAB PO SCH (08:45)
[2020-04-02] MEDS: MAGNESIUM OXIDE 400 MG TAB (MAG-OX) PO SCH ×2 (08:46→20:24)
[2020-04-02] MEDS: APIXABAN 2.5 MG TAB (ELIQUIS) PO SCH ×2 (08:46→20:24)
[2020-04-02] MEDS: VITAMIN D 1,000 INTERNATIONAL UNITS TABLET PO SCH (08:46)
[2020-04-02] MEDS: levETIRAcetam 250MG TABLET (KEPPRA) PO SCH ×2 (08:47→20:24)
[2020-04-02] MEDS: ATORVASTATIN 20 MG TAB PO SCH (08:47)
[2020-04-02] MEDS: amLODIPine 5 MG TAB PO SCH (08:47)
[2020-04-02] MEDS: POTASSIUM CHLORIDE 10 MEQ SR TABLET PO SCH ×2 (08:47→20:23)
[2020-04-02] MEDS: GABAPENTIN 100 MG CAP PO SCH ×2 (08:48→20:23)
[2020-04-02] MEDS: METOPROLOL SUCC (TopROL XL) 50MG **XL** TAB PO SCH (08:48)
[2020-04-02] MEDS: ASPIRIN 81 MG ENTERIC TAB PO SCH (08:48)
[2020-04-02] MEDS: ANUSOL HC CREAM 30GM TOP SCH ×2 (08:49→20:25)
[2020-04-02] MEDS: DOXEPIN 10 MG CAP PO SCH (20:24)
[2020-04-02] MEDS: MONTELUKAST 10 MG TAB PO SCH (20:24)
[2020-04-03 06:00] VITALS: BP 149/73
[2020-04-03] MEDS: POTASSIUM CHLORIDE 10 MEQ SR TABLET PO SCH (08:59)
[2020-04-03] MEDS: OMEPRAZOLE 20 MG CAP PO SCH (08:59)
[2020-04-03] MEDS: DOCUSATE SODIUM 100 MG CAP PO SCH (09:00)
[2020-04-03] MEDS: amLODIPine 5 MG TAB PO SCH (09:00)
[2020-04-03] MEDS: GABAPENTIN 100 MG CAP PO SCH (09:00)
[2020-04-03] MEDS: ATORVASTATIN 20 MG TAB PO SCH (09:01)
[2020-04-03] MEDS: valACYclovir HCL 500 MG TAB PO SCH (09:01)
[2020-04-03] MEDS: MAGNESIUM OXIDE 400 MG TAB (MAG-OX) PO SCH (09:01)
[2020-04-03] MEDS: ASPIRIN 81 MG ENTERIC TAB PO SCH (09:02)
[2020-04-03 09:03] VITALS: BP 149/73
[2020-04-03] MEDS: METOPROLOL SUCC (TopROL XL) 50MG **XL** TAB PO SCH (09:03)
[2020-04-03] MEDS: levETIRAcetam 250MG TABLET (KEPPRA) PO SCH (09:03)
[2020-04-03] MEDS: VITAMIN D 1,000 INTERNATIONAL UNITS TABLET PO SCH (09:04)
[2020-04-03] MEDS: APIXABAN 2.5 MG TAB (ELIQUIS) PO SCH (09:04)
[2020-04-03] MEDS: allopurinoL 100 MG TAB PO SCH (09:04)
[2020-04-03] MEDS: ANUSOL HC CREAM 30GM TOP SCH (09:05)
[2020-04-03] MEDS ORDERED: AMLO1TAB24 PO (11:33)
--- NOTE | 2020-04-03 11:35 | IPNPDOC ---
Date Seen The patient was seen on 04/03/20. Progress Note Addendum: CLL- NOT ON CHEMOTHERAPY. VS, I&O, 24H, Fishbone Vital Signs/I&O Vital Signs Date Time Temp Pulse Resp B/P (MAP) Pulse Ox O2 Delivery O2 Flow Rate FiO2 04/03/20 09:03 64 149/73 04/03/20 06:00 97.8 18 99 Room Air I&O- Last 24 Hours up to 6 AM 04/03/20 05:59 Intake Total 1380 ml Balance 1380 ml ANNE-MARIE BROWN MD Apr 03, 2020 11:34
--- NOTE | 2020-04-11 09:22 | ECGEPIP ---
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
--- NOTE | 2020-04-29 11:07 | DSES ---
DATE OF ADMISSION: 03/20/2020 DATE OF DISCHARGE: 04/03/2020 Patient was changed on alternative level of care (ALC) status on 03/22/2020 and was awaiting rehabilitation availability. DISCHARGE DIAGNOSES: 1. Suicidal ideation, resolved. 2. Acute kidney injury on chronic kidney disease, stage III. 3. History of multiple cerebrovascular accidents in the past with left large occipital stroke, causing blindness. 4. Mechanical fall. 5. History of chronic lymphocytic leukemia, not on chemotherapy. 6. Hypertension. 7. Epilepsy. 8. Paroxysmal atrial fibrillation. 9. Gout. 10. Hyperuricemia. DISCHARGE MEDICATIONS: - amlodipine 5 mg daily - acetaminophen 1 gram every 6 as needed - allopurinol 100 daily - Eliquis 2.5 twice a day - aspirin 81 daily - atorvastatin 80 daily - vitamin D3 at 2000 units daily - doxepin 10 every night - atorvastatin 80 daily - vitamin D 2000 units daily - doxepin 10 every night - fish oil - [place]-3 1200 mg daily - gabapentin 100 twice a day - halobetasol propionate topically twice a day as needed - Keppra 500 twice a day - magnesium oxide 400 twice a day - Toprol-XL 50 daily - montelukast 10 every night - mupirocin topically as needed - Prilosec 40 daily - potassium 20 mEq twice a day - tizanidine 2 mg every 8 as needed - triamcinolone as needed topically twice a day - Valtrex 500 daily HOSPITAL COURSE: This is a 79-year-old male, admitted on 03/20/2020, DO NOT RESUSCITATE, DO NOT INTUBATE, history of blindness from occipital stroke, Chronic lymphocytic leukemia (CLL), status post chemotherapy, not on chemotherapy, chronic kidney disease (CKD) III, atrial fibrillation, on Eliquis, had a mechanical fall at home moving from his trailer, missed a step, and landed on his left arm and right wrist. Patient complained of throbbing pain and was subsequently admitted. He was found to have acute on chronic renal failure with creatinine of 1.86 on admission, given IV fluids with diuretics held. He was resumed back on his home dose of statin, aspirin, and Eliquis for history of multiple strokes and previous blindness. He had a history of dysphagia with speech therapy recommending soft, thin liquids and upright for meals due to laryngeal penetration per esophagram in November 2019. Patient had no other acute issues during this admission and subsequently discharged to [facility]. PHYSICAL EXAMINATION ON DISCHARGE: Temperature 97.8, pulse 64, respiratory rate 18, blood pressure 149/73, 99% on room air. GENERAL: Patient appears older than his stated age, disheveled. Dry mucous membranes. No jugular venous distention (JVD). No thyromegaly. LUNGS: Clear to auscultation. No wheezing, rales, or rhonchi. HEART: S1, S2, sinus rhythm. ABDOMEN: Soft, nontender, nondistended. Positive bowel sounds. EXTREMITIES: No cyanosis or clubbing. DISCHARGE LABORATORY DATA: On March 30, white count 6.3, hemoglobin 10, hematocrit 33, platelet count 210. On March 30, sodium 140, potassium 4.6, chloride 107, bicarbonate 28, BUN 13, creatinine 1.05, glucose 104. IMAGING STUDIES: Brain MRI 03/21/2020: No acute infarct. Diffuse age-related moderate chronic microvascular white matter ischemic changes. Stable chronic infarct, left occipital lobe. Chronic lacunar infarct seen in the left thalamus. Chest x-ray March 20: No acute abnormality. Hand x-ray March 20: No acute abnormality. Humeral x-ray March 20: No acute findings. TIME SPENT ON DISCHARGE: 30 minutes. [facility]
--- NOTE | 2020-04-29 16:27 | DSES ---
DATE OF ADMISSION: 03/20/2020 DATE OF DISCHARGE: 04/03/2020 Patient was changed to alternative level of care (ALC) status on 03/22/2020 and was awaiting rehabilitation availability. DISCHARGE DIAGNOSES: 1. Suicidal ideation, resolved. 2. Acute kidney injury on chronic kidney disease, stage III. 3. History of multiple cerebrovascular accidents in the past with left large occipital stroke, causing blindness. 4. Mechanical fall. 5. History of chronic lymphocytic leukemia, not on chemotherapy. 6. Hypertension. 7. Epilepsy. 8. Paroxysmal atrial fibrillation. 9. Gout. 10. Hyperuricemia. DISCHARGE MEDICATIONS: - amlodipine 5 mg daily - acetaminophen 1 gram every 6 as needed - allopurinol 100 daily - Eliquis 2.5 twice a day - aspirin 81 daily - atorvastatin 80 daily - vitamin D3 at 2000 units daily - doxepin 10 every night - atorvastatin 80 daily - vitamin D 2000 units daily - doxepin 10 every night - fish oil - [place]-3 1200 mg daily - gabapentin 100 twice a day - halobetasol propionate topically twice a day as needed - Keppra 500 twice a day - magnesium oxide 400 twice a day - Toprol-XL 50 daily - montelukast 10 every night - mupirocin topically as needed - Prilosec 40 daily - potassium 20 mEq twice a day - tizanidine 2 mg every 8 as needed - triamcinolone as needed topically twice a day - Valtrex 500 daily HOSPITAL COURSE: This is a 79-year-old male, admitted on 03/20/2020, DO NOT RESUSCITATE, DO NOT INTUBATE, history of blindness from occipital stroke, Chronic lymphocytic leukemia (CLL), status post chemotherapy, not on chemotherapy, chronic kidney disease (CKD) III, atrial fibrillation, on Eliquis, had a mechanical fall at home moving from his trailer, missed a step, and landed on his left arm and right wrist. Patient complained of throbbing pain and was subsequently admitted. He was found to have acute on chronic renal failure with creatinine of 1.86 on admission, given IV fluids with diuretics held. He was resumed back on his home dose of statin, aspirin, and Eliquis for history of multiple strokes and previous blindness. He had a history of dysphagia with speech therapy recommending soft, thin liquids and upright for meals due to laryngeal penetration per esophagram in November 2019. Patient had no other acute issues during this admission and subsequently discharged to [facility]. PHYSICAL EXAMINATION ON DISCHARGE: Temperature 97.8, pulse 64, respiratory rate 18, blood pressure 149/73, 99% on room air. GENERAL: Patient appears older than his stated age, disheveled. Dry mucous membranes. No jugular venous distention (JVD). No thyromegaly. LUNGS: Clear to auscultation. No wheezing, rales, or rhonchi. HEART: S1, S2, sinus rhythm. ABDOMEN: Soft, nontender, nondistended. Positive bowel sounds. EXTREMITIES: No cyanosis or clubbing. DISCHARGE LABORATORY DATA: On March 30, white count 6.3, hemoglobin 10, hematocrit 33, platelet count 210. On March 30, sodium 140, potassium 4.6, chloride 107, bicarbonate 28, BUN 13, creatinine 1.05, glucose 104. IMAGING STUDIES: Brain MRI 03/21/2020: No acute infarct. Diffuse age-related moderate chronic microvascular white matter ischemic changes. Stable chronic infarct, left occipital lobe. Chronic lacunar infarct seen in the left thalamus. Chest x-ray March 20: No acute abnormality. Hand x-ray March 20: No acute abnormality. Humeral x-ray March 20: No acute findings. TIME SPENT ON DISCHARGE: 30 minutes. [facility]
== END 2020-04-03 14:20 | DRG 683 ==
LOC: M ED 15:36 → EDBD 15:36 → M ED INP 20:21 → M MS5PR 22:45
PROVIDERS: ADMIT Internal Medicine Nephrology; ATTEND General Practice
DX: N17.9 Acute kidney failure, unspecified (principal); C91.90 Lymphoid leukemia, unspecified not having achieved remission; I50.32 Chronic diastolic (congestive) heart failure; I13.0 Hypertensive heart and chronic kidney disease with heart failure and stage 1 through stage 4 chronic kidney disease, or unspecified chronic kidney disease; R45.851 Suicidal ideations; I69.398 Other sequelae of cerebral infarction; H54.8 Legal blindness, as defined in USA; N18.3 Chronic kidney disease, stage 3 (moderate); F43.23 Adjustment disorder with mixed anxiety and depressed mood; F03.90 Unspecified dementia, unspecified severity, without behavioral disturbance, psychotic disturbance, mood disturbance, and anxiety; Z66 Do not resuscitate; G40.909 Epilepsy, unspecified, not intractable, without status epilepticus; I48.0 Paroxysmal atrial fibrillation; M25.531 Pain in right wrist; M48.02 Spinal stenosis, cervical region; I87.2 Venous insufficiency (chronic) (peripheral); M10.9 Gout, unspecified; R13.10 Dysphagia, unspecified; L20.9 Atopic dermatitis, unspecified; Z98.1 Arthrodesis status; Z96.653 Presence of artificial knee joint, bilateral; Z85.828 Personal history of other malignant neoplasm of skin; Z87.891 Personal history of nicotine dependence; Z63.8 Other specified problems related to primary support group; Z79.01 Long term (current) use of anticoagulants; Z79.899 Other long term (current) drug therapy; Z88.8 Allergy status to other drugs, medicaments and biological substances; Z79.82 Long term (current) use of aspirin

== ENCOUNTER 2020-07-02 08:24 | Inpatient (IN) | payer MEDICARE, MEDICAID ==
[~2020-07-02] VITALS: Ht 157.5 cm; Wt 87.6 kg
[~2020-07-02 08:24] MED LIST changes: +AMLO1TAB24 PO; +ASPI-161 PO; +HALO0.052 TOP; -MONT10TA4 PO; +MONT5TAB2 PO; +OMEG1CAP12 PO; +PATIENT COMMENT; +TIZA2TAB6 PO
--- NOTE | 2020-07-02 08:57 | REP ---
INDICATION: DYSPNEA/COUGH. COMPARISON: Comparison chest x-ray March 20, 2020.. TECHNIQUE: Sitting AP portable radiograph. FINDINGS: A right-sided [id number] catheter is seen in place with its tip in the expected location of the SVC unchanged. Monitoring electrodes are noted. The heart is not enlarged. The thoracic aorta is calcific and tortuous as before. Pulmonary vasculature is not increased. Lung patricia are clear. Pleural angles are sharp. No acute bony abnormality is appreciated. Fusion hardware is noted in the lower cervical spine. IMPRESSION: [id number] catheter in place. No active cardiopulmonary disease. Status post cervical spine fusion. <Electronically signed by Cali Elizabeth > 07/02/20 [id number]
--- NOTE | 2020-07-02 09:12 | REP ---
INDICATION: altered mental. COMPARISON: Comparison head CT study March 20, 2020.. TECHNIQUE: Helical scanning is acquired. 5 mm axial images were reformatted. Coronal MPR images were generated. FINDINGS: Bone window settings demonstrate an intact bony calvarium. There is no evidence of skull fracture or incidental bony calvarial lesion. The visualized paranasal sinuses appear clear. No intraorbital abnormality is seen. There is heavy vascular calcification in the distal internal carotid and distal vertebral arteries bilaterally. This is unchanged. On soft tissue window settings, there is moderate generalized volume loss as before. There is an old cerebral cortical infarction involving left occipital lobe unchanged from the March 20, 2020 study. There is an old lacunar infarct in the caudate nucleus on the right also unchanged. There is no evidence of intracranial hemorrhage. Moderate small vessel atherosclerotic changes are noted in the periventricular white matter bilaterally. A persistent cavum septum pellucidum is noted incidentally unchanged. There is no evidence of acute infarction, mass, extra-axial fluid collection, or midline shift. IMPRESSION: Extensive vascular calcification, moderate diffuse atrophy and small vessel changes. Old infarcts in the left occipital lobe and right basal ganglia. No acute infarction, hemorrhage, mass or midline shift seen.. <Electronically signed by Cali Elizabeth > 07/02/20 [id number]
[2020-07-02] MEDS ORDERED: POTA20TA6 PO (09:22)
[2020-07-02] MEDS ORDERED: HALOBETASOL (09:22)
[2020-07-02] MEDS ORDERED: LASI40TA9 PO (09:22)
[2020-07-02 09:37] LABS: BASO % 0.6 % (0.0-1.0); EOS # 0.3 10^3/uL (0.0-0.5); HEMATOCRIT 35.7 % (42.0-52.0); HEMOGLOBIN 10.9 g/dl (13.5-17.5); LYMPH # 0.8 10^3/uL (1.5-5.0); LYMPH % 15.7 % (24.0-44.0); MEAN CORPUSCULAR HEMOGLOBIN 26.5 pg (27.0-33.0); MEAN CORPUSCULAR HGB CONC 30.5 g/dl (32.0-36.5); MEAN CORPUSCULAR VOLUME 86.9 fl (80.0-96.0); MONO # 0.6 10^3/uL (0.0-0.8); MONO % 11.5 % (0.0-5.0); NEUTROPHILS # 3.5 10^3/uL (1.5-8.5); NEUTROPHILS % 65.4 % (36.0-66.0); PLATELET COUNT, AUTOMATED 258 10^3/uL (150-450); RED BLOOD COUNT 4.11 10^6/uL (4.30-6.10); WHITE BLOOD COUNT 5.3 10^3/uL (4.0-10.0)
[2020-07-02 10:22] LABS: ALBUMIN 4.3 GM/DL (3.2-5.2); ALT/SGPT 22 U/L (12-78); BILIRUBIN,DIRECT 0.2 MG/DL (0.0-0.2); BILIRUBIN,TOTAL 0.6 MG/DL (0.2-1.0); BLOOD UREA NITROGEN 21 MG/DL (7-18); CARBON DIOXIDE LEVEL 30 MEQ/L (21-32); CHLORIDE LEVEL 107 MEQ/L (98-107); CK-MB VALUE MASS 1.9 NG/ML (<3.6); CPK CREATINE PHOSPHOKINASE 391 U/L (39-308); CREATININE FOR GFR 1.49 MG/DL (0.70-1.30); GLOMERULAR FILTRATION RATE 48.4 (>42); GLUCOSE, FASTING 89 MG/DL (70-100); MB/CK RELATIVE INDEX 0.49 (< OR =4); NT-PRO BNP 825 PG/ML (<450); POTASSIUM SERUM 3.9 MEQ/L (3.5-5.1); SODIUM LEVEL 141 MEQ/L (136-145); THYROXINE (T4) 10.5 UG/DL (4.5-12.0); TOTAL PROTEIN 7.4 GM/DL (6.4-8.2); TROPONIN I < 0.02 NG/ML (< 0.10)
[2020-07-02 10:39] LABS: BILIRUBIN, URINE MANUAL NEGATIVE (NEGATIVE); GLUCOSE, URINE (UA) MANUAL NEGATIVE (NEGATIVE); KETONE, URINE MANUAL NEGATIVE (NEGATIVE); UROBILINOGEN, URINE MANUAL NORMAL (NORMAL)
[2020-07-02 11:02] LABS: AMORPHOUS SEDIMENT, URINE SMALL AMOUNT (NEGATIVE); BACTERIA, URINE NONE SEEN; HYALINE CAST, URINE NONE SEEN /lpf (0-1); RBC, URINE 0-1 /hpf (0-3); SQUAMOUS EPITHELIAL CELL URINE SMALL AMOUNT /hpf (SMALL AMT)
[2020-07-02] MEDS ORDERED: AMLO1TAB24 PO (13:10)
[2020-07-02] MEDS ORDERED: POTA10TA14 PO (13:10)
[2020-07-02] MEDS ORDERED: PREDOPD OS (13:10)
[2020-07-02 13:53] LABS: INR 1.05; PROTHROMBIN TIME 13.9 SECONDS (12.5-14.3)
[2020-07-02 15:14] VITALS: BP 131/67
--- NOTE | 2020-07-02 15:14 | HPEPDOC ---
General Date of Admission Jul 02, 2020 at 13:42 Date of Service: Jul 02, 2020 Chief Complaint The patient is a 79-year-old male admitted with a reason for visit of Toxic Metabolic Encephalopathy. Source: Patient, Family Exam Limitations: Dementia History of Present Illness Mr. Mcrae is a 79-year-old male with A. fib on apixaban, CVA, and history of zoster meningitis, encephalitis, and conjunctivitis who is here for altered mental status. He was recently here in April for acute kidney injury. He was discharged to [facility] because he could not to care of himself at home. He was just discharged about 2 days ago from [place]. The brother that lives with him, Sanya, found him this morning altered. Patient has been randomly taking his medications and pain all over. The patient put himself in the hallway, and said that he wasn't in his home. I spoke with healthcare proxy, Isidro. Isidro does not live nearby, but believes that the patient needs to be in the jail. When I spoke with the patient, he is very jovial. He ad mitted to being confused this morning. He denied any suicide ideation. Home Medications Scheduled Allopurinol (Allopurinol) 100 Mg Tablet, 100 MG PO DAILY, (Reported) Amlodipine Besylate (Amlodipine Besylate) 5 Mg Tablet, 5 MG PO DAILY, (Reported) Apixaban (Eliquis) 2.5 Mg Tablet, 2.5 MG PO BID, (Reported) Aspirin (Aspirin EC) 81 Mg Tablet.dr, 81 MG PO DAILY, (Reported) Atorvastatin Calcium (Atorvastatin Calcium) 80 Mg Tab, 80 MG PO DAILY, (Reported) Cholecalciferol (Vitamin D3) (Vitamin D3) 1,000 Unit Tablet, 2,000 UNITS PO DAILY, (Reported) Doxepin HCl (Doxepin HCl) 10 Mg Capsule, 10 MG PO QHS, (Reported) Fish Oil/Borage/Flax/Om3,6,9 1 ([place] 3-6-9 1,200 mg Softgel) 1,200 Mg Capsule, 1,200 MG PO DAILY, (Reported) Furosemide (Lasix) 40 Mg Tablet, 60 MG PO DAILY, (Reported) Gabapentin (Gabapentin) 100 Mg Capsule, 100 MG PO BID, (Reported) Levetiracetam (Keppra) 500 Mg Tab, 500 MG PO BID, (Reported) Magnesium Oxide (Magnesium Oxide) 400 Mg Tablet, 400 MG PO BID, (Reported) Metoprolol Succinate (Toprol Xl) 50 Mg Tab.er.24h, 50 MG PO DAILY, (Reported) Montelukast Sodium (Montelukast Sodium) 10 Mg Tab, 10 MG PO QHS, (Reported) Omeprazole (Omeprazole) 40 Mg Cap, 40 MG PO DAILY, (Reported) Potassium Chloride (Potassium Chloride) 10 Meq Tablet.er, 10 MEQ PO DAILY, (Reported) Prednisolone Acetate (Prednisolone Acetate 1% Opth Susp) 5 Ml Drops.susp, 1 DROP OS TID, (Reported) Triamcinolone Acet (Triamcinolone Acetonide 0.1% Crm) 80 Gm Cream..g., 1 DOSE TOP BID, (Reported) APPLIES TO RIGHT LEG Valacyclovir HCl (Valtrex) 500 Mg Tablet, 500 MG PO DAILY, (Reported) Scheduled PRN Acetaminophen (Acetaminophen) 500 Mg Tablet, 1,000 MG PO Q6H PRN for BACK PAIN, (Reported) Halobetasol Propionate (Halobetasol Propionate) 50 Gm Cream..g., 1 DOSE TOP BID PRN for RASH, (Reported) APPLIES TO TRUNK AND EXTERMITIES Tizanidine HCl (Tizanidine HCl) 2 Mg Tablet, 2 MG PO Q8H PRN for MUSCLE SPASMS, (Reported) Allergies Coded Allergies: ciclopirox (Verified Allergy, Intermediate, rash, hives, 06/12/19) Past Medical History Medical History CLL On chemotherapy R THALAMIC STROKE IN 09/30/2012, TIA ONE WEEK LATER - ON PLAVIX Legally blind HTN EPILEPSY CERVICAL SPINAL STENOSIS VENOUS ULCERS LEGS BILAT 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 DEMENTIA 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 CKD 3 Paroxysmal A fib AAA SACRAL PRESSURE ULCER DIASTOLIC CHF--ECHO 10/2019: EF 60%, TRACE MR, MILDLY INC RT-SIDED LOW BACK PAIN - MRI L-S SPINE 04/2019 - DDD, DISC BULG L4 WITH FORAMINAL NARROWING, MILD SPINAL STENOSIS - FOLLOWED BY [facility] Dysphagia LARYNGEAL PENETRATION PER ESOPHAGRAM 11/2019 ST RECOMMENDATION MECH SOFT/THIN LIQUIDS/UPRIGHT FOR MEALS LEFT OCCIPITAL INFARCT 12/2019 WITH BLURRY VISION 60-70% RIGHT ICA STENOSIS INTRINSIC ATOPIC DERMATITIS C-SPINE DDD WITH MODERATE CENTRAL CANAL STENOSIS AND SEVERE B/L FORAMINAL STENOSIS PER MRI 12/2019 Surgical History ANTERIOR CERVICAL DISCECTOMY AND FUSION X 2 APPENDECTOMY L BREAST BENIGN 70 YEARS AGO TESTICLE SURGERY 15 YEARS AGO L AND R TOTAL KNEE REPLACEMENT CARPAL TUNNEL SURGERY 2012 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 PLACED 10/2019 Family History FATHER: , LUNG CANCER MOTHER: SKIN CANCER, VALVULAR HEART DISEASE, SIBLINGS: ALIVE, BROTHER WITH [place], UNSPECIFIED HEART DISEASE Social History * Smoker: former Smoker Alcohol: Denies Drugs: denies A-FIB/CHADSVASC A-FIB History Current/History of A-Fib/PAF?: Yes Current PO Anticoag Therapy: Yes Review of Systems Constitutional: Denies: Fever Eyes: Reports: Other (Chronic blurry vision and itchy eyes) ENT: Denies: Sore Throat Skin: Reports: Itching (eyes); Denies: Rash Pulmonary: Denies: Dyspnea, Cough Cardiovascular: Denies: Chest Pain Gastrointestinal: Denies: Nausea, Abdominal Pain Genitourinary: Denies: Dysuria Hematologic: Denies: Bruising Neurological: Reports: Confusion Psych: Denies: Thoughts of Self Harm Physical Examination General Exam: Positive: Cooperative Eye Exam: Positive: EOMI; Negative: Sclera icteric ENT Exam: Positive: Tongue Midline Neck Exam: Negative: thyromegaly Chest Exam: Positive: Clear to auscultation Heart Exam: Positive: Rate Normal, Regular Rhythm Abdomen Exam: Positive: Normal bowel sounds, Soft; Negative: Tenderness Extremity Exam: Positive: Edema (bilateral pitting) Neuro Exam: Positive: Cranial Nerves 3-12 NL Psych Exam: Negative: Mental status NL Vital Signs Vital Signs Date Time Temp Pulse Resp B/P (MAP) Pulse Ox O2 Delivery O2 Flow Rate FiO2 07/02/20 09:19 68 16 150/74 (99) 100 Room Air 07/02/20 08:30 98.2 Laboratory Data Labs 24H Laboratory Tests 2 07/02/20 08:45: Immature Granulocyte % (Auto) 0.8, Neutrophils (%) (Auto) 65.4, Lymphocytes (%) (Auto) 15.7L, Monocytes (%) (Auto) 11.5H, Eosinophils (%) (Auto) 6.0H, Basophils (%) (Auto) 0.6, Neutrophils # (Auto) 3.5, Lymphocytes # (Auto) 0.8L, Monocytes # (Auto) 0.6, Eosinophils # (Auto) 0.3, Basophils # (Auto) 0.0, Nucleated Red Blood Cells % (auto) 0.0, Urine Color (VIKTORIYA) YELLOW, Urine Appearance (VIKTORIYA) CLEAR, Urine pH (VIKTORIYA) 9.0, Urine Specific [place] (VIKTORIYA) 1.015, Bedside Urine Glucose (UA) NEGATIVE, Bedside Urine Ketones (LAB) NEGATIVE, Bedside Urine Blood TRACEH, Bedside Urine Nitrite (LAB) NEGATIVE, Bedside Urine Bilirubin (LAB) NEGATIVE, Bedside Urine Urobilinogen (LAB) NORMAL, Bedside Urine Leukocyte Esterase (L TRACEH, Urine Sediment Examination PERFORMED, Urine RBC 0-1, Urine WBC 1-3, Urine Squamous Epithelial Cells SMALL AMOUNT, Urine Amorphous Sediment SMALL AMOUNTH, Urine Bacteria NONE SEEN, Urine Hyaline Casts NONE SEEN, Anion Gap 4L, Glomerular Filtration Rate 48.4, Lactic Acid Level 0.8, Calcium Level 9.0, Total Bilirubin 0.6, Direct Bilirubin 0.2, Aspartate Amino Transf (AST/SGOT) 26, Alanine Aminotransferase (ALT/SGPT) 22, Alkaline Phosphatase 189H, Total Creatine Kinase 391H, Creatine Kinase MB 1.9, Creatine Kinase MB Relative Index 0.49, Troponin I < 0.02, BI-Tno-I-Type Natriuretic Peptide 825H, Total Protein 7.4, Albumin 4.3, Albumin/Globulin Ratio 1.4, Thyroid Stimulating Hormone (TSH) 2.590, Thyroxine (T4) 10.5 07/02/20 09:13: Bedside Glucose (Misc Panel) 84 07/02/20 13:28: Ammonia 19 07/02/20 13:29: Prothrombin Time 13.9, Prothromb Time International Ratio 1.05 07/02/20 13:33: Coronavirus (COVID-19)(PCR) NEGATIVE CBC/BMP Laboratory Tests 07/02/20 08:45 Microbiology Microbiology 07/02/20 Urine Culture, Received Pending 07/02/20 Blood Culture, Received Pending 07/02/20 Blood Culture, Received Pending Assessment/Plan Mr. Mcrae is a 79 year old male with dementia who is unable to care for self at home and has been taking medications incorrectly. His brother, Sanya ([phone]) was not reachable. His other brother, Isidro, was reachable and believes that patient will need to be in jail. Otherwise, we will hold his muscle relaxant and provide supportive care. PT/OT ordered. Will need placement Plan / VTE VTE Prophylaxis Ordered?: Yes Plan Plan 1. Toxic Metabolic Encephalopathy -Brother, Sanya, found him at home with AMS -Patient has not been taking medications correctly. AMS most likely secondary taking his medication incorrectly -Patient denies suicidal ideation adamantly and says his in [place] and God wouldn't want him to kill himself. He was seen in April with psych in which he reported the same thing. -Ammonia level normal, UA unremarkable, CXR does not suggest PNA -He does have COLLEEN, BUN slightly elevated -Monitor on Tele 2. COLLEEN -Creatinine on admission was 1.49, baseline 1 -Patient is on Lasix. Patient reported taking medications incorrectly. Will hold Lasix at this time. -Supportive care 3. Paroxysmal atrial fibrillation -No in afib or RVR -Continue apixaban and Toprol XL 4. Hypertension -Blood pressure is elevated -Continue amlodipine and Toprol XL 5. Stable Diastolic CHF -Echocardiogram 10/16/2019 demonstrates grade 1 diastolic disfunction. EF 60% -Bilateral pitting edema, but lungs sound clear -Holding Lasix due to COLLEEN 6. Epilepsy -Continue Keppra 7. 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 Gout -No flare -Continue allopurinol 9. DVT ppx -On apixaban Dispo: Pending improvement in mental status and renal function. Patient may need placement ZORAN LEE DO Jul 02, 2020 15:14
[2020-07-02] MEDS: amLODIPine 5 MG TAB PO SCH (15:16)
[2020-07-02] MEDS: METOPROLOL SUCC (TopROL XL) 50MG **XL** TAB PO SCH (15:16)
--- NOTE | 2020-07-02 17:04 | ECGEPIP ---
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
[2020-07-02] MEDS: prednisoLONE ACET 1% OPHTH SUSP 5ML OS SCH ×2 (17:28→21:58)
[2020-07-02] MEDS: levETIRAcetam 250MG TABLET (KEPPRA) PO SCH (21:57)
[2020-07-02] MEDS: GABAPENTIN 100 MG CAP PO SCH (21:57)
[2020-07-02] MEDS: APIXABAN 2.5 MG TAB (ELIQUIS) PO SCH (21:57)
[2020-07-02] MEDS: DOXEPIN 10 MG CAP PO SCH (21:58)
[2020-07-02] MEDS: MONTELUKAST 10 MG TAB PO SCH (21:58)
[2020-07-02] MEDS: TRIAMCINOLONE ACET 0.1% CREAM 80 GM TOP SCH (21:59)
[2020-07-02 22:00] VITALS: BP 126/63
[2020-07-02] MEDS: ACETAMINOPHEN 500 MG TAB PO PRN (22:08)
[2020-07-03] MEDS: ACETAMINOPHEN 500 MG TAB PO PRN ×2 (04:49→20:05)
[2020-07-03 06:00] VITALS: BP 129/66
[2020-07-03 07:37] LABS: HEMATOCRIT 30.6 % (42.0-52.0); HEMOGLOBIN 9.4 g/dl (13.5-17.5); MEAN CORPUSCULAR HEMOGLOBIN 26.6 pg (27.0-33.0); MEAN CORPUSCULAR HGB CONC 30.7 g/dl (32.0-36.5); MEAN CORPUSCULAR VOLUME 86.4 fl (80.0-96.0); PLATELET COUNT, AUTOMATED 234 10^3/uL (150-450); RED BLOOD COUNT 3.54 10^6/uL (4.30-6.10); WHITE BLOOD COUNT 4.3 10^3/uL (4.0-10.0)
[2020-07-03 07:56] LABS: BLOOD UREA NITROGEN 19 MG/DL (7-18); CALCIUM LEVEL 8.2 MG/DL (8.8-10.2); CARBON DIOXIDE LEVEL 27 MEQ/L (21-32); CHLORIDE LEVEL 109 MEQ/L (98-107); CREATININE FOR GFR 1.21 MG/DL (0.70-1.30); GLOMERULAR FILTRATION RATE > 60.0 (>42); GLUCOSE, FASTING 89 MG/DL (70-100); POTASSIUM SERUM 3.9 MEQ/L (3.5-5.1); SODIUM LEVEL 143 MEQ/L (136-145)
[2020-07-03] MEDS: OMEPRAZOLE 20 MG CAP PO SCH (08:54)
[2020-07-03] MEDS: levETIRAcetam 250MG TABLET (KEPPRA) PO SCH ×2 (08:54→20:04)
[2020-07-03] MEDS: GABAPENTIN 100 MG CAP PO SCH ×2 (08:54→20:04)
[2020-07-03] MEDS: APIXABAN 2.5 MG TAB (ELIQUIS) PO SCH ×2 (08:54→20:04)
[2020-07-03] MEDS: ATORVASTATIN 20 MG TAB PO SCH (08:54)
[2020-07-03] MEDS: allopurinoL 100 MG TAB PO SCH (08:55)
[2020-07-03] MEDS: valACYclovir HCL 500 MG TAB PO SCH (08:55)
[2020-07-03] MEDS: VITAMIN D 1,000 INTERNATIONAL UNITS TABLET PO SCH (08:55)
[2020-07-03] MEDS: ASPIRIN 81 MG ENTERIC TAB PO SCH (08:55)
[2020-07-03] MEDS: TRIAMCINOLONE ACET 0.1% CREAM 80 GM TOP SCH (08:55)
[2020-07-03] MEDS: prednisoLONE ACET 1% OPHTH SUSP 5ML OS SCH ×3 (08:55→20:06)
[2020-07-03] MEDS: amLODIPine 5 MG TAB PO SCH (08:58)
[2020-07-03] MEDS: METOPROLOL SUCC (TopROL XL) 50MG **XL** TAB PO SCH (08:58)
[2020-07-03 14:00] VITALS: BP 125/66
[2020-07-03] MEDS ORDERED: MIRALAX *UNIT DOSE* 17GM PACKET PO PRN (17:00)
[2020-07-03] MEDS: DOXEPIN 10 MG CAP PO SCH (20:04)
[2020-07-03] MEDS: DOCUSATE SODIUM 100MG CAPSULE PO SCH (20:04)
[2020-07-03] MEDS: MONTELUKAST 10 MG TAB PO SCH (20:04)
--- NOTE | 2020-07-03 20:41 | IPNPDOC ---
Subjective Date Seen The patient was seen on 07/03/20. Subjective Chief Complaint/HPI Mr. Mcrae is a 79-year-old male with A. fib on apixaban, CVA, and history of zoster meningitis, encephalitis, and conjunctivitis who is here for altered mental status. This morning, he was very jovial. Denies fever, chest pain, dyspnea, abdominal pain, or dysuria. Objective Physical Examination General Exam: Positive: Cooperative Eye Exam: Positive: EOMI; Negative: Sclera icteric ENT Exam: Positive: Tongue Midline Neck Exam: Negative: thyromegaly Chest Exam: Positive: Clear to auscultation Heart Exam: Positive: Rate Normal, Regular Rhythm Abdomen Exam: Positive: Normal bowel sounds, Soft; Negative: Tenderness Extremity Exam: Positive: Edema (bilateral pitting) Neuro Exam: Positive: Cranial Nerves 3-12 NL Psych Exam: Negative: Mental status NL Assessment /Plan Assessment Mr. Mcrae is a 79 year old male with dementia who is unable to care for self at home and has been taking medications incorrectly. He cannot read and would not be able to take his medication appropriately. He would either need placement or someone to help dispense medication. Otherwise, we will hold his muscle relaxant and provide supportive care. PT/OT ordered Plan/VTE VTE Prophylaxis Ordered?: Yes Plan 1. Toxic Metabolic Encephalopathy -Brother, Sanya, found him at home with AMS -Patient has not been taking medications correctly. AMS most likely secondary taking his medication incorrectly -Patient denies suicidal ideation adamantly and says his in [facility] and God wouldn't want him to kill himself. He was seen in April with psych in which he reported the same thing. -Ammonia level normal, UA unremarkable, CXR does not suggest PNA -He does have COLLEEN, BUN slightly elevated -Monitor on Tele 2. COLLEEN -Creatinine on admission was 1.49, baseline 1 -Patient is on Lasix. Patient reported taking medications incorrectly. Will hold Lasix at this time. -Supportive care 3. Paroxysmal atrial fibrillation -No in afib or RVR -Continue apixaban and Toprol XL 4. Hypertension -Blood pressure is elevated -Continue amlodipine and Toprol XL 5. Stable Diastolic CHF -Echocardiogram 10/16/2019 demonstrates grade 1 diastolic disfunction. EF 60% -Bilateral pitting edema, but lungs sound clear -Holding Lasix due to COLLEEN 6. Epilepsy -Continue Keppra 7. 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 Gout -No flare -Continue allopurinol 9. DVT ppx -On apixaban Disposition: Renal function improving. May need placement as he cannot read and would not be able to take medications correctly at home VS, I&O, 24H, Fishbone Vital Signs/I&O Vital Signs Date Time Temp Pulse Resp B/P (MAP) Pulse Ox O2 Delivery O2 Flow Rate FiO2 07/03/20 14:00 98.5 63 18 125/66 (85) 100 Room Air I&O- Last 24 Hours up to 6 AM 07/03/20 06:00 Intake Total 900 ml Output Total 525 ml Balance 375 ml Laboratory Data 24H LABS Laboratory Tests 2 07/03/20 07:18: Nucleated Red Blood Cells % (auto) 0.0, Anion Gap 7L, Glomerular Filtration Rate > 60.0, Calcium Level 8.2L CBC/BMP Laboratory Tests 07/03/20 07:18 Microbiology Microbiology 07/02/20 Urine Culture - Final, Complete 07/02/20 Blood Culture - Preliminary, Resulted No growth after 24 hours . All specim... 07/02/20 Blood Culture - Preliminary, Resulted No growth after 24 hours . All specim... ZORAN LEE DO Jul 03, 2020 20:41
[2020-07-03 22:00] VITALS: BP 127/67
[2020-07-04 06:00] VITALS: BP 130/64
[2020-07-04 06:27] LABS: HEMATOCRIT 31.3 % (42.0-52.0); HEMOGLOBIN 9.9 g/dl (13.5-17.5); MEAN CORPUSCULAR HEMOGLOBIN 27.2 pg (27.0-33.0); MEAN CORPUSCULAR HGB CONC 31.6 g/dl (32.0-36.5); PLATELET COUNT, AUTOMATED 253 10^3/uL (150-450); RED BLOOD COUNT 3.64 10^6/uL (4.30-6.10); WHITE BLOOD COUNT 4.1 10^3/uL (4.0-10.0)
[2020-07-04 06:52] LABS: BLOOD UREA NITROGEN 16 MG/DL (7-18); CALCIUM LEVEL 8.5 MG/DL (8.8-10.2); CARBON DIOXIDE LEVEL 28 MEQ/L (21-32); CHLORIDE LEVEL 108 MEQ/L (98-107); CREATININE FOR GFR 1.19 MG/DL (0.70-1.30); GLOMERULAR FILTRATION RATE > 60.0 (>42); GLUCOSE, FASTING 82 MG/DL (70-100); POTASSIUM SERUM 3.8 MEQ/L (3.5-5.1); SODIUM LEVEL 142 MEQ/L (136-145)
[2020-07-04] MEDS ORDERED: FLUBLOK(EGG FREE)(QUAD)INFLUENZA VACC 0.5ML SYRINGE 18YRS & OLDER IM ONE (09:00)
[2020-07-04] MEDS: ATORVASTATIN 20 MG TAB PO SCH (09:25)
[2020-07-04] MEDS: ASPIRIN 81 MG ENTERIC TAB PO SCH (09:25)
[2020-07-04] MEDS: DOCUSATE SODIUM 100MG CAPSULE PO SCH ×2 (09:25→20:00)
[2020-07-04] MEDS: levETIRAcetam 250MG TABLET (KEPPRA) PO SCH ×2 (09:25→20:00)
[2020-07-04] MEDS: OMEPRAZOLE 20 MG CAP PO SCH (09:26)
[2020-07-04] MEDS: valACYclovir HCL 500 MG TAB PO SCH (09:26)
[2020-07-04] MEDS: VITAMIN D 1,000 INTERNATIONAL UNITS TABLET PO SCH (09:26)
[2020-07-04] MEDS: GABAPENTIN 100 MG CAP PO SCH ×2 (09:26→20:00)
[2020-07-04] MEDS: APIXABAN 2.5 MG TAB (ELIQUIS) PO SCH ×2 (09:26→20:00)
[2020-07-04] MEDS: amLODIPine 5 MG TAB PO SCH (09:26)
[2020-07-04] MEDS: allopurinoL 100 MG TAB PO SCH (09:26)
[2020-07-04] MEDS: METOPROLOL SUCC (TopROL XL) 50MG **XL** TAB PO SCH (09:27)
[2020-07-04] MEDS: prednisoLONE ACET 1% OPHTH SUSP 5ML OS SCH ×3 (09:28→20:02)
[2020-07-04 14:00] VITALS: BP 121/65
[2020-07-04] MEDS: MONTELUKAST 10 MG TAB PO SCH (20:00)
[2020-07-04] MEDS: DOXEPIN 10 MG CAP PO SCH (20:01)
--- NOTE | 2020-07-04 21:25 | IPNPDOC ---
Subjective Date Seen The patient was seen on 07/04/20. Subjective Chief Complaint/HPI Mr. Mcrae is a 79-year-old male with A. fib on apixaban, CVA, and history of zoster meningitis, encephalitis, and conjunctivitis who is here for altered mental status. He tell me despite having difficulty with reading, he is able to manage his own medications. Otherwise, denies fever, chest pain, dyspnea, abdominal pain, or dysuria. Objective Physical Examination General Exam: Positive: Cooperative Eye Exam: Positive: EOMI; Negative: Sclera icteric ENT Exam: Positive: Tongue Midline Neck Exam: Negative: thyromegaly Chest Exam: Positive: Clear to auscultation Heart Exam: Positive: Rate Normal, Regular Rhythm Abdomen Exam: Positive: Normal bowel sounds, Soft; Negative: Tenderness Extremity Exam: Positive: Edema (bilateral pitting) Neuro Exam: Positive: Cranial Nerves 3-12 NL Psych Exam: Negative: Mental status NL Assessment /Plan Assessment Mr. Mcrae is a 79 year old male with inability to read who has been taking medications incorrectly. His brother would like him to go to long term, but he will respect his brother's wishes to stay at home. Suggested a bubble pack for his medication of which patient is agreeable to. Plan/VTE VTE Prophylaxis Ordered?: Yes Plan 1. Toxic Metabolic Encephalopathy -Brother, Sanya, found him at home with AMS -Patient has not been taking medications correctly. AMS most likely secondary taking his medication incorrectly -Patient denies suicidal ideation adamantly and says his [facility] and God wouldn't want him to kill himself. He was seen in April with psych in which he reported the same thing. -Ammonia level normal, UA unremarkable, CXR does not suggest PNA -He does have COLLEEN, BUN slightly elevated -Resolved 2. CLOLEEN -Creatinine on admission was 1.49, baseline 1 -Patient is on Lasix. Patient reported taking medications incorrectly. Will hold Lasix at this time. -Supportive care 3. Paroxysmal atrial fibrillation -No in afib or RVR -Continue apixaban and Toprol XL 4. Hypertension -Blood pressure is elevated -Continue amlodipine and Toprol XL 5. Stable Diastolic CHF -Echocardiogram 10/16/2019 demonstrates grade 1 diastolic disfunction. EF 60% -Bilateral pitting edema, but lungs sound clear -Holding Lasix due to COLLEEN 6. Epilepsy -Continue Keppra 7. 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 Gout -No flare -Continue allopurinol 9. DVT ppx -On apixaban Disposition: Patient will return home. Possible discharge for tomorrow VS, I&O, 24H, Fishbone Vital Signs/I&O Vital Signs Date Time Temp Pulse Resp B/P (MAP) Pulse Ox O2 Delivery O2 Flow Rate FiO2 07/04/20 14:00 97.9 66 18 121/65 (83) 100 07/03/20 14:00 Room Air I&O- Last 24 Hours up to 6 AM 07/04/20 06:00 Intake Total 1030 ml Output Total 500 ml Balance 530 ml Laboratory Data 24H LABS Laboratory Tests 2 07/04/20 05:49: Nucleated Red Blood Cells % (auto) 0.0, Anion Gap 6L, Glomerular Filtration Rate > 60.0, Calcium Level 8.5L CBC/BMP Laboratory Tests 07/04/20 05:49 Microbiology Microbiology 07/02/20 Urine Culture - Final, Complete 07/02/20 Blood Culture - Preliminary, Resulted No Growth after 48 hours. All Specime... 07/02/20 Blood Culture - Preliminary, Resulted No Growth after 48 hours. All Specime... ZORAN LEE DO Jul 04, 2020 21:25
[2020-07-04] MEDS ORDERED: ACET-683 PO (21:34)
[2020-07-04 22:00] VITALS: BP 119/66
[2020-07-04] MEDS: ACETAMINOPHEN 500 MG TAB PO PRN (22:28)
[2020-07-05 06:00] VITALS: BP 121/76
[2020-07-05 06:58] LABS: HEMATOCRIT 29.7 % (42.0-52.0); HEMOGLOBIN 9.2 g/dl (13.5-17.5); MEAN CORPUSCULAR HEMOGLOBIN 26.6 pg (27.0-33.0); MEAN CORPUSCULAR VOLUME 85.8 fl (80.0-96.0); PLATELET COUNT, AUTOMATED 218 10^3/uL (150-450); RED BLOOD COUNT 3.46 10^6/uL (4.30-6.10); WHITE BLOOD COUNT 6.2 10^3/uL (4.0-10.0)
[2020-07-05 07:13] LABS: BLOOD UREA NITROGEN 19 MG/DL (7-18); CALCIUM LEVEL 8.3 MG/DL (8.8-10.2); CARBON DIOXIDE LEVEL 28 MEQ/L (21-32); CHLORIDE LEVEL 108 MEQ/L (98-107); CREATININE FOR GFR 1.19 MG/DL (0.70-1.30); GLOMERULAR FILTRATION RATE > 60.0 (>42); GLUCOSE, FASTING 96 MG/DL (70-100); POTASSIUM SERUM 3.9 MEQ/L (3.5-5.1); SODIUM LEVEL 141 MEQ/L (136-145)
[2020-07-05] MEDS: prednisoLONE ACET 1% OPHTH SUSP 5ML OS SCH (08:39)
[2020-07-05 08:42] VITALS: BP 125/74
[2020-07-05] MEDS: METOPROLOL SUCC (TopROL XL) 50MG **XL** TAB PO SCH (08:42)
[2020-07-05] MEDS: valACYclovir HCL 500 MG TAB PO SCH (08:42)
[2020-07-05] MEDS: ASPIRIN 81 MG ENTERIC TAB PO SCH (08:42)
[2020-07-05] MEDS: levETIRAcetam 250MG TABLET (KEPPRA) PO SCH (08:42)
[2020-07-05] MEDS: ATORVASTATIN 20 MG TAB PO SCH (08:42)
[2020-07-05] MEDS: APIXABAN 2.5 MG TAB (ELIQUIS) PO SCH (08:43)
[2020-07-05] MEDS: allopurinoL 100 MG TAB PO SCH (08:43)
[2020-07-05] MEDS: DOCUSATE SODIUM 100MG CAPSULE PO SCH (08:43)
[2020-07-05] MEDS: OMEPRAZOLE 20 MG CAP PO SCH (08:43)
[2020-07-05] MEDS: VITAMIN D 1,000 INTERNATIONAL UNITS TABLET PO SCH (08:43)
[2020-07-05] MEDS: amLODIPine 5 MG TAB PO SCH (08:43)
[2020-07-05] MEDS: GABAPENTIN 100 MG CAP PO SCH (08:43)
[2020-07-05] MEDS ORDERED: OMEP40CA97 PO (12:28)
[2020-07-05] MEDS ORDERED: DOXE10CA PO (12:28)
[2020-07-05] MEDS ORDERED: MONT5TAB2 PO (12:28)
[2020-07-05] MEDS ORDERED: ATOR80TA59 PO (12:28)
[2020-07-05] MEDS ORDERED: D31000TA2 PO (12:28)
[2020-07-05] MEDS ORDERED: AMLO1TAB24 PO (12:28)
[2020-07-05] MEDS ORDERED: MAGN400T2 PO (12:28)
[2020-07-05] MEDS ORDERED: VALT500T PO (12:28)
[2020-07-05] MEDS ORDERED: KEPP1TAB PO (12:28)
[2020-07-05] MEDS ORDERED: OMEG1CAP12 PO (12:28)
[2020-07-05] MEDS ORDERED: ALLO100T PO (12:28)
[2020-07-05] MEDS ORDERED: TOPR50TA PO (12:28)
[2020-07-05] MEDS ORDERED: GABA-1171 PO (12:28)
[2020-07-05] MEDS ORDERED: ASPI-161 PO (12:28)
[2020-07-05] MEDS ORDERED: ELIQ2.5T PO (12:28)
--- NOTE | 2020-07-05 15:17 | DS.PDOC ---
Discharge Summary General Date of Admission Jul 02, 2020 at 13:42 Date of Discharge Jul 05, 2020 Attending Physician: ZORAN LEE DO Discharge Summary PROCEDURES PERFORMED DURING STAY: None. ADMITTING DIAGNOSES: 1. Toxic metabolic encephalopathy 2. Acute kidney injury 3. Paroxysmal atrial fibrillation 4. Hypertension 5. Diastolic congestive heart failure 6. Epilepsy 7. History of zoster meningitis, encephalitis, and conjunctivae 8. Gout DISCHARGE DIAGNOSES: 1. Toxic metabolic encephalopathy 2. Acute kidney injury 3. Paroxysmal atrial fibrillation 4. Hypertension 5. Diastolic congestive heart failure 6. Epilepsy 7. History of zoster meningitis, encephalitis, and conjunctivae 8. Gout COMPLICATIONS/CHIEF COMPLAINT: Toxic Metabolic Encephalopathy. HISTORY OF PRESENT ILLNESS: Mr. Mcrae is a 79-year-old male with A. fib on apixaban, CVA, and history of zoster meningitis, encephalitis, and conjunctivitis who is here for altered mental status. He was recently here in April for acute kidney injury. He was discharged to [facility] because he could not to care of himself at home. He was just discharged about 2 days ago from [place]. The brother that lives with him, Sanya, found him this morning altered. Patient has been randomly taking his medications and pain all over. The patient put himself in the hallway, and said that he wasn't in his home. I spoke with healthcare proxy, Isidro. Isidro does not live nearby, but believes that the patient needs to be in the long term. When I spoke with the patient, he is very jovial. He admitted to being confused this morning. He denied any suicide ideation. HOSPITAL COURSE: His altered mental status was most likely secondary to inappropriately taking his medications and acute renal failure. No signs of infection. UA was not suggestive of UTI. During his hospitalization, his acute renal failure is managed with supportive care and with holding his diuretics. Renal function improved. His cognitive status was better, and he understands why he was in the hospital. He tells me that he cannot read, but he's been able to manage his medications. He did not want to go to a nursing facility. The patient and his brother has been in contact with the tool and production planner. His brother is going to abide by the patient wishes to remain at home. We suggested bubble packs and he is agreeable to trying. Otherwise, I've continued holding his diuretics. His EF is 60% as of October 2019. He may not need his diuretics, but this should be discussed with his PCP. Today patient felt well, denied any fever or chills, lightheadedness or dizziness, chest pain, dyspnea, abdominal pain, diarrhea, or dysuria. He felt ready for home and was subsequently discharged DISCHARGE MEDICATIONS: Please see below. ALLERGIES: Please see below. PHYSICAL EXAMINATION ON DISCHARGE: VITAL SIGNS: Please see below. GENERAL: Comfortable, in no apparent distress. HEENT: Head normocephalic/atraumatic, EOMI, sclera clear. NECK: Supple RESPIRATORY: Lungs clear to auscultation bilaterally, no rales, wheeze or rhonchi. CARDIOVASCULAR: Regular rate and rhythm. ABDOMEN: Soft, nontender, no guarding or rebound tenderness. Normal bowel sounds. MUSCLE SKELETAL: Muscle strength 5/5 in all extremities. NEUROLOGICAL: CN 312 grossly intact, no focal deficits noted. PSYCHOLOGICAL: Normal mood and affect LABORATORY DATA: Please see below. IMAGING: CT head without contrast Extensive vascular calcification, moderate diffuse atrophy and small vessel changes. Old infarcts in the left occipital lobe and right basal ganglia. No acute i nfarction, hemorrhage, mass or midline shift seen.. Chest x-ray [id number] catheter in place. No active cardiopulmonary disease. Status post cervical spine fusion. PROGNOSIS: Stable ACTIVITY: As tolerated. DIET: 2 g sodium diet DISCHARGE PLAN: Home with home care and home OT DISPOSITION: 01 Home, Self-Care. DISCHARGE INSTRUCTIONS: 1. Follow up with her PCP within 5 days. 2. Should discuss with PCP about diuretics DISCHARGE CONDITION: Stable. Total time spent on discharge planning, discharge summary, medication reconciliation: 45 minutes Vital Signs/I&Os Vital Signs Date Time Temp Pulse Resp B/P (MAP) Pulse Ox O2 Delivery O2 Flow Rate FiO2 07/05/20 08:42 78 125/74 07/05/20 06:00 98.5 17 96 Room Air I&O- Last 24 Hours up to 6 AM 07/05/20 05:59 Intake Total 1470 ml Output Total 300 ml Balance 1170 ml Laboratory Data Labs 24H Laboratory Tests 2 07/05/20 06:39: Nucleated Red Blood Cells % (auto) 0.0, Anion Gap 5L, Glomerular Filtration Rate > 60.0, Calcium Level 8.3L CBC/BMP Laboratory Tests 07/05/20 06:39 Microbiology Microbiology 07/02/20 Urine Culture - Final, Complete 07/02/20 Blood Culture - Preliminary, Resulted No Growth after 72 hours. All specime... 07/02/20 Blood Culture - Preliminary, Resulted No Growth after 72 hours. All specime... Discharge Medications Scheduled Allopurinol (Allopurinol) 100 Mg Tablet, 100 MG PO DAILY Amlodipine Besylate (Amlodipine Besylate) 5 Mg Tablet, 5 MG PO DAILY Apixaban (Eliquis) 2.5 Mg Tablet, 2.5 MG PO BID Aspirin (Aspirin EC) 81 Mg Tablet.dr, 81 MG PO DAILY Atorvastatin Calcium (Atorvastatin Calcium) 80 Mg Tab, 80 MG PO DAILY Cholecalciferol (Vitamin D3) (Vitamin D3) 1,000 Unit Tablet, 2,000 UNITS PO DAILY Doxepin HCl (Doxepin HCl) 10 Mg Capsule, 10 MG PO QHS Fish Oil/Borage/Flax/Om3,6,9 1 ([place] 3-6-9 1,200 mg Softgel) 1,200 Mg Capsule, 1,200 MG PO DAILY Gabapentin (Gabapentin) 100 Mg Capsule, 100 MG PO BID Levetiracetam (Keppra) 500 Mg Tab, 500 MG PO BID Magnesium Oxide (Magnesium Oxide) 400 Mg Tablet, 400 MG PO BID Metoprolol Succinate (Toprol Xl) 50 Mg Tab.er.24h, 50 MG PO DAILY Montelukast Sodium (Montelukast Sodium) 10 Mg Tab, 10 MG PO QHS Omeprazole (Omeprazole) 40 Mg Cap, 40 MG PO DAILY Prednisolone Acetate (Prednisolone Acetate 1% Opth Susp) 5 Ml Drops.susp, 1 DROP OS TID, (Reported) Triamcinolone Acet (Triamcinolone Acetonide 0.1% Crm) 80 Gm Cream..g., 1 DOSE TOP BID, (Reported) APPLIES TO RIGHT LEG Valacyclovir HCl (Valtrex) 500 Mg Tablet, 500 MG PO DAILY Scheduled PRN Acetaminophen (Acetaminophen) 500 Mg Tablet, 1,000 MG PO Q8HP PRN for BACK PAIN Halobetasol Propionate (Halobetasol Propionate) 50 Gm Cream..g., 1 DOSE TOP BID PRN for RASH, (Reported) APPLIES TO TRUNK AND EXTERMITIES Allergies Coded Allergies: ciclopirox (Verified Allergy, Intermediate, rash, hives, 06/12/19) ZORAN LEE DO Jul 05, 2020 15:17
== END 2020-07-05 11:45 | disposition home health service (06) | DRG 92 ==
LOC: M ED 08:24 → EDBD 08:24 → M ED INP 13:42 → ENRESERV 14:35 → M MSPAV 14:56
PROVIDERS: ADMIT Internal Medicine; ATTEND Internal Medicine
DX: G92 Toxic encephalopathy (principal); N17.9 Acute kidney failure, unspecified; I50.32 Chronic diastolic (congestive) heart failure; C91.90 Lymphoid leukemia, unspecified not having achieved remission; I48.0 Paroxysmal atrial fibrillation; I11.0 Hypertensive heart disease with heart failure; G40.909 Epilepsy, unspecified, not intractable, without status epilepticus; M10.9 Gout, unspecified; M48.02 Spinal stenosis, cervical region; M51.26 Other intervertebral disc displacement, lumbar region; Z66 Do not resuscitate; R13.10 Dysphagia, unspecified; I69.398 Other sequelae of cerebral infarction; I65.21 Occlusion and stenosis of right carotid artery; T48.205A Adverse effect of unspecified drugs acting on muscles, initial encounter; L20.9 Atopic dermatitis, unspecified; H53.8 Other visual disturbances; Z98.1 Arthrodesis status; Z90.49 Acquired absence of other specified parts of digestive tract; Z96.653 Presence of artificial knee joint, bilateral; Z85.828 Personal history of other malignant neoplasm of skin; Z95.828 Presence of other vascular implants and grafts; Z79.899 Other long term (current) drug therapy; Z87.891 Personal history of nicotine dependence; Z79.01 Long term (current) use of anticoagulants; Z79.82 Long term (current) use of aspirin; Z20.828 Contact with and (suspected) exposure to other viral communicable diseases; Z91.130 Patient's unintentional underdosing of medication regimen due to age-related debility

== ENCOUNTER 2020-07-22 18:34 | Emergency (ER) | payer MEDICARE, MEDICAID ==
[~2020-07-22] VITALS: Ht 162.6 cm; Wt 89.8 kg
[~2020-07-22 18:34] MED LIST changes: +HALOBETASOL; +POTA10TA14 PO; +PREDOPD OS
[2020-07-22] MEDS ORDERED: ACETAMINOPHEN TAB 650MG DOSE (2X325MG) PO ONE (22:00)
--- NOTE | 2020-07-22 22:05 | REPVR ---
PROCEDURE INFORMATION: Exam: XR Chest, 1 View Exam date and time: 07/22/2020 9:11 PM Age: 79 years old Clinical indication: CHF TECHNIQUE: Imaging protocol: XR of the chest Views: 1 view. COMPARISON: ND PORTABLE CHEST X-RAY 07/02/2020 8:41 AM FINDINGS: Tubes, catheters and devices: There is a right internal jugular Clwfvc-I-Eszc catheter terminating in the junction of the superior vena cava and right atrium. Lungs: Unremarkable. No consolidation. No pulmonary edema. Pleural space: Unremarkable. No pleural effusion or pneumothorax is identified. Heart/Mediastinum: Unremarkable. No cardiomegaly. Vasculature: There are atherosclerotic calcifications of the aorta. Bones/joints: Postoperative changes are noted in the cervical spine, which are not fully evaluated in this study. 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 Endplate spurs are present in the thoracic spine. IMPRESSION: No radiographic evidence for an acute cardiopulmonary process or CHF. Electronically signed by: Hayes Jaramillo On 07/22/2020 22:05:22 PM
--- NOTE | 2020-07-22 22:21 | REPVR ---
PROCEDURE INFORMATION: Exam: US Duplex Lower Extremity Veins, Bilateral Exam date and time: 07/22/2020 10:05 PM Age: 79 years old Clinical indication: Edema, localized; Lower extremity, bilateral; Additional info: R/O dvt TECHNIQUE: Imaging protocol: Real-time duplex ultrasound of the extremities with 2-D pope scale, color Doppler flow and spectral waveform analysis with image documentation. Complete exam focused on the bilateral lower extremity veins. COMPARISON: US Duplex, Ext,LOWER veins,unilat 10/12/2019 4:04 PM FINDINGS: Right deep veins: Unremarkable. The common femoral, femoral, and popliteal veins are patent without thrombus. Normal compressibility, augmentation response and Doppler waveforms. Right superficial veins: Saphenofemoral junction is patent without thrombus. Left deep veins: Unremarkable. The common femoral, femoral, and popliteal veins are patent without thrombus. Normal compressibility, augmentation response and Doppler waveforms. Left superficial veins: Saphenofemoral junction is patent without thrombus. Soft tissues: There is soft tissue edema in both lower extremities. IMPRESSION: No deep vein thrombosis in the veins imaged in both lower extremities. Electronically signed by: Hayes Jaramillo On 07/22/2020 22:21:40 PM
[2020-07-22] MEDS ORDERED: SODIUM CHLORIDE 0.9% INJ 10 ML SYR IV PRN (22:30)
[2020-07-22 23:27] LABS: BASO % 0.6 % (0.0-1.0); EOS # 1.3 10^3/uL (0.0-0.5); EOS % 19.9 % (0.0-3.0); HEMATOCRIT 29.5 % (42.0-52.0); LYMPH % 16.6 % (24.0-44.0); MEAN CORPUSCULAR HEMOGLOBIN 26.8 pg (27.0-33.0); MEAN CORPUSCULAR HGB CONC 30.5 g/dl (32.0-36.5); MEAN CORPUSCULAR VOLUME 87.8 fl (80.0-96.0); MONO # 0.7 10^3/uL (0.0-0.8); MONO % 10.5 % (0.0-5.0); NEUTROPHILS # 3.2 10^3/uL (1.5-8.5); NEUTROPHILS % 51.6 % (36.0-66.0); PLATELET COUNT, AUTOMATED 288 10^3/uL (150-450); RED BLOOD COUNT 3.36 10^6/uL (4.30-6.10); WHITE BLOOD COUNT 6.3 10^3/uL (4.0-10.0)
[2020-07-22 23:38] LABS: INR 0.99; PROTHROMBIN TIME 13.3 SECONDS (12.5-14.3)
[2020-07-22 23:39] LABS: PARTIAL THROMBOPLASTIN TIME 31.7 SECONDS (24.2-38.5)
[2020-07-22 23:53] LABS: ALBUMIN 3.3 GM/DL (3.2-5.2); ALT/SGPT 17 U/L (12-78); BILIRUBIN,DIRECT < 0.1 MG/DL (0.0-0.2); BILIRUBIN,TOTAL 0.2 MG/DL (0.2-1.0); BLOOD UREA NITROGEN 18 MG/DL (7-18); C REACTIVE PROTEIN QUANTITATIV 2.41 MG/DL (0.00-0.30); CALCIUM LEVEL 8.3 MG/DL (8.8-10.2); CARBON DIOXIDE LEVEL 29 MEQ/L (21-32); CHLORIDE LEVEL 111 MEQ/L (98-107); CK-MB VALUE MASS 1.3 NG/ML (<3.6); CPK CREATINE PHOSPHOKINASE 103 U/L (39-308); GLOMERULAR FILTRATION RATE 48.1 (>42); GLUCOSE, FASTING 101 MG/DL (70-100); LIPASE 109 U/L (73-393); MB/CK RELATIVE INDEX 1.26 (< OR =4); NT-PRO BNP 568 PG/ML (<450); POTASSIUM SERUM 4.2 MEQ/L (3.5-5.1); SODIUM LEVEL 144 MEQ/L (136-145); TOTAL PROTEIN 6.1 GM/DL (6.4-8.2); TROPONIN I < 0.02 NG/ML (< 0.10)
[2020-07-22 23:56] LABS: ERYTHROCYTE SEDIMENTATION RATE 39 mm/hr (0-20)
[2020-07-23] MEDS ORDERED: FUROSEMIDE 40MG/4ML VIAL (J1940) IV ONE
[2020-07-23 08:48] VITALS: BP 111/69
--- NOTE | 2020-07-23 22:50 | ECGEPIP ---
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
== END 2020-07-23 08:52 | disposition home or self-care (01) ==
LOC: M ED 18:34
DX: R22.43 Localized swelling, mass and lump, lower limb, bilateral (principal); I48.91 Unspecified atrial fibrillation; I50.9 Heart failure, unspecified; I25.2 Old myocardial infarction; I10 Essential (primary) hypertension; N18.30 Chronic kidney disease, stage 3 unspecified; Z86.73 Personal history of transient ischemic attack (TIA), and cerebral infarction without residual deficits; Z87.891 Personal history of nicotine dependence; Z79.01 Long term (current) use of anticoagulants; Z79.82 Long term (current) use of aspirin; Z79.899 Other long term (current) drug therapy; Z88.8 Allergy status to other drugs, medicaments and biological substances
CPT/HCPCS: 71045; 80048; 80076; 82550; 82553; 83690; 83880; 84484; 85025; 85610; 85652; 85730; 86140; 87040; 93005; 93041; 93970; 94760; 96374; 99285; J1940

== ENCOUNTER → 2020-08-29 | Outpatient (REF) | payer MEDICARE ==
[~2020-08-29] MED LIST changes: +GABA-282; +GABA-282 PO; -GABA-843; -GABA-843 PO; +TIZA1TAB12 PO; -TIZA2TAB6 PO
[2020-08-29 12:50] LABS: BASO # 0.1 10^3/uL (0.0-0.2); BASO % 1.1 % (0.0-1.0); HEMOGLOBIN 10.9 g/dl (13.5-17.5); LYMPH # 0.9 10^3/uL (1.5-5.0); LYMPH % 14.7 % (24.0-44.0); MEAN CORPUSCULAR HEMOGLOBIN 27.2 pg (27.0-33.0); MEAN CORPUSCULAR HGB CONC 31.1 g/dl (32.0-36.5); MEAN CORPUSCULAR VOLUME 87.3 fl (80.0-96.0); MONO # 0.6 10^3/uL (0.0-0.8); MONO % 9.9 % (0.0-5.0); NEUTROPHILS # 3.5 10^3/uL (1.5-8.5); NEUTROPHILS % 57.6 % (36.0-66.0); PLATELET COUNT, AUTOMATED 209 10^3/uL (150-450); RED BLOOD COUNT 4.01 10^6/uL (4.30-6.10); WHITE BLOOD COUNT 6.1 10^3/uL (4.0-10.0)
[2020-08-29 14:07] LABS: CREATININE FOR GFR 1.51 MG/DL (0.70-1.30); GLOMERULAR FILTRATION RATE 47.7 (>42)
[2020-08-29 14:08] LABS: ALBUMIN 3.8 GM/DL (3.2-5.2); BILIRUBIN,TOTAL 0.5 MG/DL (0.2-1.0); CHOLESTEROL RISK RATIO 2.372 (<5); FOLATE 13.2 NG/ML; FREE T4 0.93 NG/DL (0.76-1.46); MAGNESIUM LEVEL 1.9 MG/DL (1.8-2.4); POTASSIUM SERUM 3.7 MEQ/L (3.5-5.1); THYROID STIMULATING HORMONE 2.87 uIU/ML (0.358-3.740); TOTAL 25(OH) VITAMIN D 21.2 NG/ML (30.0-100.0); TOTAL PROTEIN 6.5 GM/DL (6.4-8.2)
== END ==
LOC: M SFHCADAM 10:28
PROVIDERS: ATTEND Physician Assistant
DX: R19.7 Diarrhea, unspecified (principal); R60.0 Localized edema; I63.531 Cerebral infarction due to unspecified occlusion or stenosis of right posterior cerebral artery; N18.31 Chronic kidney disease, stage 3a; C91.90 Lymphoid leukemia, unspecified not having achieved remission; I12.9 Hypertensive chronic kidney disease with stage 1 through stage 4 chronic kidney disease, or unspecified chronic kidney disease; Z79.01 Long term (current) use of anticoagulants

== ENCOUNTER → 2020-09-06 | Outpatient (REF) | payer MEDICARE ==
[2020-09-06 18:12] LABS: ALBUMIN 4.1 GM/DL (3.2-5.2); BILIRUBIN,TOTAL 0.3 MG/DL (0.2-1.0); CALCIUM LEVEL 8.8 MG/DL (8.8-10.2); CREATININE FOR GFR 1.52 MG/DL (0.70-1.30); GLOMERULAR FILTRATION RATE 47.3 (>42); POTASSIUM SERUM 3.8 MEQ/L (3.5-5.1); TOTAL PROTEIN 6.7 GM/DL (6.4-8.2)
== END ==
LOC: M SFHCADAM 15:22
PROVIDERS: ATTEND Physician Assistant
DX: R19.7 Diarrhea, unspecified (principal); R60.0 Localized edema

== ENCOUNTER 2020-09-20 08:13 | Emergency (ER) | payer MEDICARE ==
[~2020-09-20] VITALS: Ht 165.1 cm; Wt 72.7 kg
[~2020-09-20 08:13] MED LIST changes: +CEFA500C2; +CEFA500C2 PO; -CEFAD50CA; -CEFAD50CA PO; -MAG400TA PO; +MAGN400T35 PO; +MONT10TA10 PO; -MONT5TAB2 PO
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
--- OUTSIDE RECORDS SUMMARY | 2020-09-20 08:26 | CCD ---
Author Author [facility] Organization [facility] Address Unknown Phone Unavailable Care Team Providers Care E Commerce Developer Name Role Phone Geovany Zamora Unavailable Unavailable Geovany Zamora Unavailable Unavailable Geovany Zamora Unavailable Unavailable Geovany Zamora Unavailable Unavailable Geovany Zamora Unavailable Unavailable Geovany Zamora Unavailable Unavailable Geovany Zamora Unavailable Unavailable Geovany Zamora Unavailable Unavailable Geovany Zamora Unavailable Unavailable Zamora, M Barratt PA Unavailable Unavailable Zamora, M Barratt PA Unavailable Unavailable Zamora, M Barratt PA Unavailable Unavailable Zamora, M Barratt PA Unavailable Unavailable Zamora, M Barratt PA Unavailable Unavailable Zamora, M Barratt PA Unavailable Unavailable Zamora, M Barratt PA Unavailable Unavailable Zamora, M Barratt PA Unavailable Unavailable Zamora, M Barratt PA Unavailable Unavailable Zamora, M Barratt PA Unavailable Unavailable Zamora, M Barratt PA Unavailable Unavailable Zamora, M Barratt PA Unavailable Unavailable Zamora, M Barratt PA Unavailable Unavailable Zamora, M Barratt PA Unavailable Unavailable Zamora, M Barratt PA Unavailable Unavailable Zamora, M Barratt PA Unavailable Unavailable Zamora, M Barratt PA Unavailable Unavailable Zamora, M Barratt PA Unavailable Unavailable BERTA, ROSS PA Unavailable Unavailable BERTA, ROSS PA Unavailable Unavailable BERTA, ROSS PA Unavailable Unavailable BERTA, ROSS PA Unavailable Unavailable BERTA, ROSS PA Unavailable Unavailable BERTA, ROSS PA Unavailable Unavailable BERTA, ROSS PA Unavailable Unavailable BERTA, ROSS PA Unavailable Unavailable BERTA, ROSS PA Unavailable Unavailable BERTA, ROSS PA Unavailable Unavailable BERTA, ROSS PA Unavailable Unavailable BERTA, ROSS PA Unavailable Unavailable BERTA, ROSS PA Unavailable Unavailable BERTA, ROSS PA Unavailable Unavailable BERTA, ROSS PA Unavailable Unavailable BERTA, ROSS PA Unavailable Unavailable BERTA, ROSS PA Unavailable Unavailable BERTA, ROSS PA Unavailable Unavailable BERTA, ROSS PA Unavailable Unavailable BERTA, ROSS PA Unavailable Unavailable BERTA, ROSS PA Unavailable Unavailable BERTA, ROSS PA Unavailable Unavailable BERTA, ROSS PA Unavailable Unavailable BERTA, ROSS PA Unavailable Unavailable BERTA, ROSS PA Unavailable Unavailable BERTA, ROSS PA Unavailable Unavailable BERTA, ROSS PA Unavailable Unavailable BERTA, ROSS PA Unavailable Unavailable BERTA, ROSS PA Unavailable Unavailable BERTA, ROSS PA Unavailable Unavailable BERTA, ROSS PA Unavailable Unavailable BERTA, ROSS PA Unavailable Unavailable BERTA, ROSS PA Unavailable Unavailable BERTA, ROSS PA Unavailable Unavailable BERTA, ROSS PA Unavailable Unavailable BERTA, ROSS PA Unavailable Unavailable BERTA, ROSS PA Unavailable Unavailable BERTA, ROSS PA Unavailable Unavailable BERTA, ROSS PA Unavailable Unavailable Ronda GALINDO JOSE DO Unavailable [phone] Ronda GALINDO JOSE DO Unavailable [phone] MATEO, A. JOSE DO Unavailable [phone] MATEO, A. JOSE DO Unavailable [phone] Ronda GALINDO JOSE DO Unavailable [phone] Ronda GALINDO JOSE DO Unavailable [phone] Ronda GALINDO JOSE DO Unavailable [phone] Ronda GALINDO JOSE DO Unavailable [phone] Ronda GALINDO JOSE DO Unavailable [phone] Ronda GALINDO JOSE DO Unavailable [phone] Ronda GALINDO JOSE DO Unavailable [phone] Ronda GALINDO JOSE DO Unavailable [phone] Ronda GALINDO JOSE DO Unavailable [phone] Ronda GALINDO JOSE DO Unavailable [phone] Ronda GALINDO JOSE DO Unavailable [phone] MATEO, A. JOSE DO Unavailable [phone] Ronda GALINDO JOSE DO Unavailable [phone] Ronda GALINDO JOSE DO Unavailable [phone] Ronda GALINDO JOSE DO Unavailable [phone] Ronda GALINDO JOSE DO Unavailable [phone] Ronda GALINDO JOSE DO Unavailable [phone] Gillian Simmons Unavailable Unavailable Gillian Simmons Unavailable Unavailable Gillian Simmons PA Unavailable Unavailable Gillian Simmons PA Unavailable Unavailable Hernandez, L Joan RPA Unavailable Unavailable Hernandez, L Joan RPA Unavailable Unavailable Hernandez, L Joan RPA Unavailable Unavailable Hernandez, L Joan RPA Unavailable Unavailable Hernandez, L Joan RPA Unavailable Unavailable Hernandez, L Joan RPA Unavailable Unavailable Hernandez, L Joan RPA Unavailable Unavailable Hernandez, L Joan RPA Unavailable Unavailable Hernandez, L Joan RPA Unavailable Unavailable Hernandez, L Joan RPA Unavailable Unavailable Hernandez, L Joan RPA Unavailable Unavailable Hernandez, L Joan RPA Unavailable Unavailable Hernandez, L Joan RPA Unavailable Unavailable Hernandez, L Joan RPA Unavailable Unavailable Hernandez, L Joan RPA Unavailable Unavailable Hernandez, L Joan RPA Unavailable Unavailable Hernandez, L Joan RPA Unavailable Unavailable Hernandez, L Joan RPA Unavailable Unavailable Hernandez, L Joan RPA Unavailable Unavailable Hernandez, L Joan RPA Unavailable Unavailable Hernandez, L Joan RPA Unavailable Unavailable Hernandez, L Joan RPA Unavailable Unavailable Hernandez, L Joan RPA Unavailable Unavailable Hernandez, L Joan RPA Unavailable Unavailable Hernandez, L Joan RPA Unavailable Unavailable Hernandez, L Joan RPA Unavailable Unavailable Hernandez, L Joan RPA Unavailable Unavailable Hernandez, L Joan RPA Unavailable Unavailable Hernandze, L Joan RPA Unavailable Unavailable Hernandez, L Joan RPA Unavailable Unavailable Hernandez, L Joan RPA Unavailable Unavailable Hernandez, L Joan RPA Unavailable Unavailable TURRIN, JUSTIN Unavailable Unavailable TURRIN, JUSTIN Unavailable Unavailable TURRIN, JUSTIN Unavailable Unavailable TURRIN, JUSTIN Unavailable Unavailable Zamora, M Barratt PA Unavailable Unavailable Zamora, M Barratt PA Unavailable Unavailable Zamora, M Barratt PA Unavailable Unavailable Zamora, M Barratt PA Unavailable Unavailable Zamora, M Barratt PA Unavailable Unavailable Zamora, M Barratt PA Unavailable Unavailable Zamora, M Barratt PA Unavailable Unavailable Zamora, M Barratt PA Unavailable Unavailable Zamora, M Barratt PA Unavailable Unavailable Zamora, M Barratt PA Unavailable Unavailable Zamora, M Barratt PA Unavailable Unavailable Zamora, M Barratt PA Unavailable Unavailable Zamora, M Barratt PA Unavailable Unavailable Zamora, M Barratt PA Unavailable Unavailable Zamora, M Barratt PA Unavailable Unavailable Zamora, M Barratt PA Unavailable Unavailable Zamora, M Barratt PA Unavailable Unavailable Zamora, M Barratt PA Unavailable Unavailable Zamora, M Barratt PA Unavailable Unavailable Zamora, M Barratt PA Unavailable Unavailable Zamora, M Barratt PA Unavailable Unavailable Zamora, M Barratt PA Unavailable Unavailable Zamora, M Barratt PA Unavailable Unavailable Zamora, M Barratt PA Unavailable Unavailable Zamora, M Barratt PA Unavailable Unavailable Zamora, M Barratt PA Unavailable Unavailable Zamora, M Barratt PA Unavailable Unavailable RING, K PRINCE PA Unavailable Unavailable RING, K PRINCE PA Unavailable Unavailable RING, K PRINCE PA Unavailable Unavailable RING, K PRINCE PA Unavailable Unavailable RING, K PRINCE PA Unavailable Unavailable RING, K PRINCE PA Unavailable Unavailable RING, K PRINCE PA Unavailable Unavailable RING, K PRINCE PA Unavailable Unavailable RING, K PRINCE PA Unavailable Unavailable RING, K PRINCE PA Unavailable Unavailable RING, K PRINCE PA Unavailable Unavailable RING, K PRINCE PA Unavailable Unavailable RING, K PRINCE PA Unavailable Unavailable RING, K PRINCE PA Unavailable Unavailable RING, K PRINCE PA Unavailable Unavailable RING, K PRINCE PA Unavailable Unavailable RING, K PRINCE PA Unavailable Unavailable RING, K PRINCE PA Unavailable Unavailable RING, K PRINCE PA Unavailable Unavailable RING, K PRINCE PA Unavailable Unavailable RING, K PRINCE PA Unavailable Unavailable Wetterhahn, M Leigh Ann PA Unavailable Unavailable Wetterhahn, M Leigh Ann PA Unavailable Unavailable Wetterhahn, M Leigh Ann PA Unavailable Unavailable Wetterhahn, M Leigh Ann PA Unavailable Unavailable Wetterhahn, M Leigh Ann PA Unavailable Unavailable Wetterhahn, M Leigh Ann PA Unavailable Unavailable Wetterhahn, M Leigh Ann PA Unavailable Unavailable Wetterhahn, M Leigh Ann PA Unavailable Unavailable Wetterhahn, M Leigh Ann PA Unavailable Unavailable Wetterhahn, M Leigh Ann PA Unavailable Unavailable Wetterhahn, M Leigh Ann PA Unavailable Unavailable Wetterhahn, M Leigh Ann PA Unavailable Unavailable Wetterhahn, M Leigh Ann PA Unavailable Unavailable Wetterhahn, M Leigh Ann PA Unavailable Unavailable Wetterhahn, M Leigh Ann PA Unavailable Unavailable Wetterhahn, M Leigh Ann PA Unavailable Unavailable Wetterhahn, M Leigh Ann PA Unavailable Unavailable Wetterhahn, M Leigh Ann PA Unavailable Unavailable Wetterhahn, M Leigh Ann PA Unavailable Unavailable Wetterhahn, M Leigh Ann PA Unavailable Unavailable Wetterhahn, M Leigh Ann PA Unavailable Unavailable Wetterhahn, M Leigh Ann PA Unavailable Unavailable Wetterhahn, M Leigh Ann PA Unavailable Unavailable Wetterhahn, M Leigh Ann PA Unavailable Unavailable Wetterhahn, M Leigh Ann PA Unavailable Unavailable Wetterhahn, M Leigh Ann PA Unavailable Unavailable Wetterhahn, M Leigh Ann PA Unavailable Unavailable Wetterhahn, M Leigh Ann PA Unavailable Unavailable Wetterhahn, M Leigh Ann PA Unavailable Unavailable Wetterhahn, M Leigh Ann PA Unavailable Unavailable Wetterhahn, M Leigh Ann PA Unavailable Unavailable Wetterhahn, M Leigh Ann PA Unavailable Unavailable Wetterhahn, M Leigh Ann PA Unavailable Unavailable Wetterhahn, M Leigh Ann PA Unavailable Unavailable Wetterhahn, M Leigh Ann PA Unavailable Unavailable Wetterhahn, M Leigh Ann PA Unavailable Unavailable Wetterhahn, M Leigh Ann PA Unavailable Unavailable Wetterhahn, M Leigh Ann PA Unavailable Unavailable Wetterhahn, M Leigh Ann PA Unavailable Unavailable Wetterhahn, M Leigh Ann PA Unavailable Unavailable Wetterhahn, M Leigh Ann PA Unavailable Unavailable Wetterhahn, M Leigh Ann PA Unavailable Unavailable Wetterhahn, M Leigh Ann PA Unavailable Unavailable Wetterhahn, M Leigh Ann PA Unavailable Unavailable Wetterhahn, M Leigh Ann PA Unavailable Unavailable Wetterhahn, M Leigh Ann PA Unavailable Unavailable Wetterhahn, M Leigh Ann PA Unavailable Unavailable Wetterhahn, M Leigh Ann PA Unavailable Unavailable Wetterhahn, M Leigh Ann PA Unavailable Unavailable GUME OLIVEIRA MD Unavailable Unavailable GUME OLIVEIRA MD Unavailable Unavailable GUME OLIVEIRA MD Unavailable Unavailable GUME OLIVEIRA MD Unavailable Unavailable GUME OLIVEIRA MD Unavailable Unavailable GUME OLIVEIRA MD Unavailable Unavailable GUME OLIVEIRA MD Unavailable Unavailable GUME OLIVEIRA MD Unavailable Unavailable GUME OLIVEIRA MD Unavailable Unavailable GUME OLIVEIRA MD Unavailable Unavailable GUME OLIVEIRA MD Unavailable Unavailable GUME OLIVEIRA MD Unavailable Unavailable GUME OLIVEIRA MD Unavailable Unavailable GUME OLIVEIRA MD Unavailable Unavailable GUME OLIVEIRA MD Unavailable Unavailable GUME OLIVEIRA MD Unavailable Unavailable OLIVEIRAGUME SIMMS MD Unavailable Unavailable OLIVEIRAGUME SIMMS MD Unavailable Unavailable OLIVEIRAGUME SIMMS MD Unavailable Unavailable GUME OLIVEIRA MD Unavailable Unavailable GUME OLIVEIRA MD Unavailable Unavailable GUME OLIVEIRA MD Unavailable Unavailable GUME OLIVEIRA MD Unavailable Unavailable GUME OLIVEIRA MD Unavailable Unavailable GUME OLIVEIRA MD Unavailable Unavailable GUME OLIVEIRA MD Unavailable Unavailable OLIVEIRAGUME SIMMS MD Unavailable Unavailable OLIVEIRAGUME SIMMS MD Unavailable Unavailable GUME OLIVEIRA MD Unavailable Unavailable OLIVEIRAGUME SIMMS MD Unavailable Unavailable OLIVEIRAGUME SIMMS MD Unavailable Unavailable OLIVEIRAGUME SIMMS MD Unavailable Unavailable OLIVEIRAGUME SIMMS MD Unavailable Unavailable OLIVEIRAGUME SIMMS MD Unavailable Unavailable OLIVEIRA GUME MD Unavailable Unavailable OLIVEIRA GUME MD Unavailable Unavailable OLIVEIRA, GUME MD Unavailable Unavailable OLIVEIRA GUME MD Unavailable Unavailable OLIVEIRA GUME MD Unavailable Unavailable OLIVEIRA, GUME MD Unavailable Unavailable OLIVEIRA, GUME MD Unavailable Unavailable OLIVEIRA, GUME MD Unavailable Unavailable OLIVEIRA GUME MD Unavailable Unavailable OLIVEIRA GUME MD Unavailable Unavailable OLIVEIRA, GUME MD Unavailable Unavailable OLIVEIRA GUME MD Unavailable Unavailable OLIVEIRA GUME MD Unavailable Unavailable OLIVEIRA GUME MD Unavailable Unavailable OLIVEIRA GUME MD Unavailable Unavailable OLIVEIRA, GUME MD Unavailable Unavailable OLIVEIRA GUME MD Unavailable Unavailable OLIVEIRA GUME MD Unavailable Unavailable OLIVEIRA GUME MD Unavailable Unavailable OLIVEIRA GUME MD Unavailable Unavailable OLIVEIRA GUME MD Unavailable Unavailable OLIVEIRA GUME MD Unavailable Unavailable OLIVEIRA GUME MD Unavailable Unavailable OLIVEIRA, GUME MD Unavailable Unavailable OLIVEIRA GUME MD Unavailable Unavailable OLIVEIRA GUME MD Unavailable Unavailable OLIVEIRA GUME MD Unavailable Unavailable OLIVEIRA GUME MD Unavailable Unavailable OLIVEIRA, GUME MD Unavailable Unavailable OLIVEIRA GUME MD Unavailable Unavailable OLIVEIRA, GUME MD Unavailable Unavailable OLIVEIRA GUME MD Unavailable Unavailable OLIVEIRA, GUME MD Unavailable Unavailable OLIVEIRA, GUME MD Unavailable Unavailable OLIVEIRA GUME MD Unavailable Unavailable AliAsael MD Unavailable Unavailable AliAsael MD Unavailable Unavailable AliAsael MD Unavailable Unavailable AliAsael MD Unavailable Unavailable AliAsael MD Unavailable Unavailable AliAsael MD Unavailable Unavailable Asael Jay MD Unavailable Unavailable Asael Jay MD Unavailable Unavailable Asael Jay MD Unavailable Unavailable Asael Jay MD Unavailable Unavailable AliAsael MD Unavailable Unavailable AliAsael MD Unavailable Unavailable AliAsael MD Unavailable Unavailable AliAsael MD Unavailable Unavailable AliAsael MD Unavailable Unavailable AliAsael MD Unavailable Unavailable AliAsael MD Unavailable Unavailable Asael Jay MD Unavailable Unavailable Asael Jay MD Unavailable Unavailable Asael Jay MD Unavailable Unavailable AliAsael MD Unavailable Unavailable AliAsael MD Unavailable Unavailable AliAsael MD Unavailable Unavailable Asael Jay MD Unavailable Unavailable Asael Jay MD Unavailable Unavailable Asael Jay MD Unavailable Unavailable Asael Jay MD Unavailable Unavailable Asael Jay MD Unavailable Unavailable Asael Jay MD Unavailable Unavailable AliAsael MD Unavailable Unavailable AliAsael MD Unavailable Unavailable AliAsael MD Unavailable Unavailable Asael Jay MD Unavailable Unavailable Asael Jay MD Unavailable Unavailable Asael Jay MD Unavailable Unavailable Asael Jay MD Unavailable Unavailable Asael Jay MD Unavailable Unavailable Asael Jay MD Unavailable Unavailable Asael Jay MD Unavailable Unavailable Asale Jay MD Unavailable Unavailable Asael Jay MD Unavailable Unavailable Asael Jay MD Unavailable Unavailable Asael Jay MD Unavailable Unavailable Asael Jay MD Unavailable Unavailable Asael Jay MD Unavailable Unavailable Asael Jay MD Unavailable Unavailable Asael Jay MD Unavailable Unavailable Asael Jay MD Unavailable Unavailable Asael Jay MD Unavailable Unavailable Alyson, B Jose BLOCKER HAND Unavailable Unavailable Alyson, B Jose BLOCKER HAND Unavailable Unavailable Alyson, B Jose BLOCKER HAND Unavailable Unavailable Alyson, B Jose BLOCKER HAND Unavailable Unavailable Alyson, B Jose BLOCKER HAND Unavailable Unavailable Alyson, B Jose BLOCKER HAND Unavailable Unavailable Alyson, B Jose BLOCKER HAND Unavailable Unavailable Alyson, B Jose BLOCKER HAND Unavailable Unavailable Alyson, B Jose BLOCKER HAND Unavailable Unavailable Shannen HARRIS MD Unavailable Unavailable Shannen HARRIS MD Unavailable Unavailable Shannen HARRIS MD Unavailable Unavailable Shannen HARRIS MD Unavailable Unavailable Shannen HARRIS MD Unavailable Unavailable Shannen HARRIS MD Unavailable Unavailable Shannen HARRIS MD Unavailable Unavailable Shannen HARRIS MD Unavailable Unavailable Shannen HARRIS MD Unavailable Unavailable VillanuevaAlea bejarano MD Unavailable Unavailable VillanuevaAlea MD Unavailable Unavailable Alea Villanueva MD Unavailable Unavailable VillanuevaAlea bejarano MD Unavailable Unavailable VillanuevaAlea bejarano MD Unavailable Unavailable VillanuevaAlea MD Unavailable Unavailable VillanuevaAlea MD Unavailable Unavailable VillanuevaAlea MD Unavailable Unavailable VillanuevaAlea MD Unavailable Unavailable VillanuevaAlea MD Unavailable Unavailable VillanuevaAlea MD Unavailable Unavailable VillanuevaAlea MD Unavailable Unavailable VillanuevaAlea bejarano MD Unavailable Unavailable VillanuevaAlea bejarano MD Unavailable Unavailable VillanuevaAlea MD Unavailable Unavailable VillanuevaAlea MD Unavailable Unavailable VillanuevaAlea MD Unavailable Unavailable VillanuevaAlea MD Unavailable Unavailable VillanuevaAlea MD Unavailable Unavailable VillanuevaAlea bejarano MD Unavailable Unavailable VillanuevaAlea MD Unavailable Unavailable VillanuevaAlea MD Unavailable Unavailable VillanuevaAlea MD Unavailable Unavailable VillanuevaAlea MD Unavailable Unavailable Villanueva L Sanya TREJO Unavailable Unavailable Villanueva, L Sanya MD Unavailable Unavailable Villanueva, L Sanya MD Unavailable Unavailable Villanueva, L Sanya MD Unavailable Unavailable Villanueva, L Sanya MD Unavailable Unavailable Villanueva, L Sanya MD Unavailable Unavailable Villanueva, L Sanya MD Unavailable Unavailable Villanueva, L Sanya MD Unavailable Unavailable Villanueva, L Sanya MD Unavailable Unavailable Villanueva, L Sanya MD Unavailable Unavailable Villanueva, L Sanya MD Unavailable Unavailable Villanueva, L Sanya MD Unavailable Unavailable Villanueva, L Sanya MD Unavailable Unavailable Villanueva, L Sanya MD Unavailable Unavailable Villanueva, L Sanya MD Unavailable Unavailable Villanueva, L Sanya MD Unavailable Unavailable Villanueva, L Sanya MD Unavailable Unavailable Villanueva, L Sanya MD Unavailable Unavailable Villanueva, L Sanya MD Unavailable Unavailable Villanueva, L Sanya MD Unavailable Unavailable Villanueva, L Sanya MD Unavailable Unavailable Villanueva, L Sanya MD Unavailable Unavailable Villanueva, L Sanya MD Unavailable Unavailable Villanueva, L Sanya MD Unavailable Unavailable Re-disclosure Warning The records that you are about to access may contain information from federally-assisted alcohol or drug abuse programs. If such information is present, then the following federally mandated warning applies: This information has been disclosed to you from records protected by federal confidentiality rules (42 CFR part 2). The federal rules prohibit you from making any further disclosure of this information unless further disclosure is expressly permitted by the written consent of the person to whom it pertains or as otherwise permitted by 42 CFR part 2. A general authorization for the release of medical or other information is NOT sufficient for this purpose. The Federal rules restrict any use of the information to criminally investigate or prosecute any alcohol or drug abuse patient.The records that you are about to access may contain highly sensitive health information, the redisclosure of which is protected by Article 27-F of the [facility] Public Health law. If you continue you may have access to information: Regarding HIV / AIDS; Provided by facilities licensed or operated by the [facility] Office of Mental Health; or Provided by the [facility] Office for People With Developmental Disabilities. If such information is present, then the following [facility] mandated warning applies: This information has been disclosed to you from confidential records which are protected by state law. State law prohibits you from making any further disclosure of this information without the specific written consent of the person to whom it pertains, or as otherwise permitted by law. Any unauthorized further disclosure in violation of state law may result in a fine or snf sentence or both. A general authorization for the release of medical or other information is NOT sufficient authorization for further disc losure. Allergies and Adverse Reactions Type Description Substance Reaction Status Data Source(s ) No Known Allergies No Known Allergies [facility] Allergy to substance No Known Allergies No known allergies (situation ) [place] (Smith Willoughby [facility]) Drug allergy Gabapentin gabapentin edema Active eCW1 ([facility]) Drug allergy Ciclopirox ciclopirox rash Active eCW1 ([facility]) Family History Family Member Name Family Member Gender Family Member Status Date o f Status Description Data Source(s) Unknown Male Problem MEDENT ([facility]) Encounters Encounter Providers Location Date Indications Data Source(s ) Office Visit, Est Pt., Level 2 FC [address] [place] [address] 08/16/2020 12:00:00 AM EST eCW1 ([facility]) (TCM) Transition of Care Visit [address] [place] [address] 07/12/2020 12:00:00 AM EST eCW1 ([facility]) Unknown [address] [facility] [id number] 07/09/2020 12:00:00 AM EST eCW1 ([facility]) Unknown [address] [facility] [id number] 07/08/2020 12:00:00 AM EST eCW1 ([facility]) Inpatient Attender: Jose WILSON ttender: GUME OLIVEIRA MDAttender: JUSTIN PEREZReferrer: GUME OLIVEIRA MDConsultant: Leigh Ann HAYNES 06/21/2020 01:10:00 PM EST - 06/28/2020 02:43:00 PM [facility] Patient discharged. Outpatient Attender: Jose Shields NPReferrer: GUME Cosby MD 06/19/2020 10:58:00 AM EST - 06/21/2020 01:10:00 PM [facility] Outpatient Attender: GUME OLIVEIRA MDConsultant: Leigh Ann HAYNES 06/13/2020 07:33:00 AM EST - 06/13/2020 07:43:00 AM EST [facility] Outpatient<td ID="encounterTypeDescripti onID0">10 - 14 Day Follow- Up</td><td>Jose Galindo DO</td><td>Smith Cruz MD [facility]</td><td>06/07/2020</td><td>12:20PM</td><td>1:10PM</td><td><content ID="encounterDiagnosisID0-0">Keratitis Herpes Simplex</content>, <content ID="encounterDiagnosisID0-1">Stroke - Ischemic Embolic</content></td> Attender: JOSE Mckay MD [facility] 06/07/2020 12:20:00 PM EST - 06/07/2020 01:10:00 PM EST Keratitis Herpes SimplexStroke - Ischemic Embolic [place] ([facility] Willoughby [facility]) 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 Outpatient<td ID="encounterTypeDescripti onID1">11 Month Follow- Up</td><td>Jose Galindo DO</td><td>Smith Cruz MD [facility]</td><td>05/28/2020</td><td>12:29PM</td><td>1:56PM</td><td><content ID="encounterDiagnosisID1-0">Stroke - Ischemic Embolic</content></td> Attender: JOSE Mckay MD [facility] 05/28/2020 12:29:00 PM EDT - 05/28/2020 01:56:00 PM EDT Stroke - Ischemic Embolic [place] ([facility]ough[facility]) Stroke - Ischemic Embolic Unknown [address] [facility] [place] [address] 05/14/2020 12:00:00 AM EDT eCW1 ([facility]) Outpatient Attender: GUME OLIVEIRA MDConsultant: Leigh Ann HAYNES 04/11/2020 10:52:00 AM EDT - 04/11/2020 11:52:00 AM EDT [facility] Outpatient Attender: GUME OLIVEIRA MDConsultant: Leigh Ann HAYNES 04/04/2020 06:49:00 AM EDT - 04/04/2020 06:59:00 AM EDT [facility] Emergency Attender: SYD HARRIS MDConsultant: Leigh Ann HAYNES 03/07/2020 12:33:00 PM EDT - 03/07/2020 01:20:00 PM EDT [facility] Patient discharged. Outpatient Attender: ROSS musa 03/03/2020 04:30:00 PM EDT MEDENT ([facility], [facility]) Inpatient Attender: Gillian Benton er: JUSTIN PEREZConsultant: Leigh Ann HAYNES 03/01/2020 05:44:00 PM EDT - 03/02/2020 11:05:00 AM EDT [facility] Patient discharged. Emergency Attender: JUSTIN PEREZ 2019 03:42:00 PM EDT - 03/01/2020 05:44:00 PM EDT [facility] Outpatient [address] [facility] [id number] 02/22/2020 12:00:00 AM EDT eCW1 ([facility]) Outpatient [address] [facility] [id number] 02/20/2020 12:00:00 AM EDT eCW1 ([facility]) (WND STRTCH) Stretcher Required Patients [address] [place] [address] 02/19/2020 12:00:00 AM EDT eCW1 ([facility]) Unknown [address] [facility] [address] 02/19/2020 12:00:00 AM EDT eCW1 ([facility]) Outpatient [address] [facility] [address] 02/16/2020 12:00:00 AM EDT eCW1 ([facility]) Unknown [address] [facility] [address] 02/15/2020 12:00:00 AM EDT eCW1 ([facility]) [place]patient [address] [facility] [address] 02/14/2020 12:00:00 AM EDT eCW1 ([facility]) Unknown [address] [facility] [address] 02/14/2020 12:00:00 AM EDT eCW1 ([facility]) Unknown [address] [facility] [address] 02/13/2020 12:00:00 AM EDT eCW1 ([facility] [place]) Outpatient [address] [facility] [address] 02/12/2020 12:00:00 AM EDT eCW1 ([facility]) [facility] Dermatology [address] [place] [address] 01/31/2020 12:00:00 AM EDT eCW1 ([facility]) Outpatient Referrer: Joan Hernandez RPA 01/24/2020 10:05:0 0 AM EDT [facility] Unknown [address] [facility] [address] 01/23/2020 12:00:00 AM EDT eCW1 ([facility]) [place] [address] [facility] [address] 01/18/2020 12:00:00 AM EDT eCW1 ([facility]) Unknown [address] [facility] [address] 01/17/2020 12:00:00 AM EDT eCW1 ([facility]) Unknown [address] [facility] [address] 01/12/2020 12:00:00 AM EDT eCW1 ([facility]) Unknown [address] [facility] [address] 01/11/2020 12:00:00 AM EDT eCW1 ([facility]) Outpatient Attender: Sanya Villanueva MD Physical Therapy 01/05/2020 0 2:00:00 PM EDT MEDENT ([facility]) Unknown [address] [facility] [address] 01/05/2020 12:00:00 AM EDT eCW1 ([facility]) [facility] Kamara [address] [facility] [address] 01/05/2020 12:00:00 AM EDT eCW1 ([facility]) Outpatient [address] [facility] [address] 01/02/2020 12:00:00 AM EDT eCW1 ([facility]) Unknown [address] [facility] [address] 01/02/2020 12:00:00 AM EDT eCW1 ([facility] [address] [facility] [address] 01/02/2020 12:00:00 AM EDT eCW1 [facility] Outpatient Referrer: Sarah HAYNES 12/29/2019 08:18:0 0 AM EDT [facility] [address] [facility] [address] 12/29/2019 12:00:00 AM EDT eCW1 ([facility]) Outpatient Referrer: Sarah HAYNES 12/27/2019 07:23:0 0 AM EDT [facility] [address] [facility] [address] 12/20/2019 12:00:00 AM EDT eCW1 [facility]) Outpatient Attender: Asael Jay MD Main office - [place] 12/19/2019 02:00:00 PM EDT MEDENT ([facility]) Outpatient Referrer: Sarah HAYNES 12/15/2019 01:34:0 0 PM EDT [facility] [address] [facility] [address] 12/15/2019 12:00:00 AM EDT eCW1 ([facility]) [place] [id number] [facility] [address] 12/15/2019 12:00:00 AM EDT eCW1 ([facility]) [facility] [place] [address] [facility] [address] 12/13/2019 12:00:00 AM EDT eCW1 ([facility] Dermatology [address] [place] [address] 12/11/2019 12:00:00 AM EDT eCW1 ([facility]) Unknown [address] [facility] [address] 12/06/2019 12:00:00 AM EDT eCW1 ([facility] [place] [address] [facility] [address] 12/04/2019 12:00:00 AM EDT eCW1 ([facility] [address] [facility] [address] 11/29/2019 12:00:00 AM EDT eCW1 ([facility]) [facility] [place] [address] [facility] [address] 11/29/2019 12:00:00 AM EDT eCW1 ([facility] [address] [facility] [address] 11/24/2019 12:00:00 AM EDT eCW1 ([facility]) [facility] [place] [address] [facility] [address] 11/24/2019 12:00:00 AM EDT eCW1 ([facility]) Outpatient Attender: Sarah HAYNES Physical Therapy 09:30:00 AM EDT MEDENT ([facility]) Outpatient Referrer: Sarah HAYNES 11/08/2019 06:19:0 0 AM EDT [facility] Outpatient Referrer: Sarah HAYNES 11/08/2019 06:15:0 0 AM EDT [facility] [address] [facility] [address] 11/08/2019 12:00:00 AM EDT eCW1 ([facility]) [facility] [place] [address] [facility] [address] 11/02/2019 12:00:00 AM EDT eCW1 ([facility]) [facility] [place] [address] [facility] [address] 11/01/2019 12:00:00 AM EDT eCW1 ([facility]) [facility] Dermatology [address] [place] [address] 10/31/2019 12:00:00 AM EDT eCW1 ([facility]) [facility] [place] [address] [facility] [address] 10/27/2019 12:00:00 AM EDT eCW1 ([facility]) [facility] [place] [address] [facility] [address] 10/27/2019 12:00:00 AM EDT eCW1 ([facility]) [facility] [place] [address] [place] [address], [place] [address] 10/26/2019 12:00:00 AM EDT eCW1 ([facility]) [facility] Dermatology [address] [place] [address] 10/26/2019 12:00:00 AM EDT eCW1 ([facility]) [facility] [place] [address] [facility] [address] 10/25/2019 12:00:00 AM EDT eCW1 ([facility]) [facility] Dermatology [address] [place] [address] 10/23/2019 12:00:00 AM EDT eCW1 ([facility]) [facility] [place] [address] [facility] [address] 10/23/2019 12:00:00 AM EDT eCW1 ([facility]) [facility] [place] [address] [facility] [address] 10/20/2019 12:00:00 AM EDT eCW1 ([facility]) [facility] [place] [address] [place] [address] 10/20/2019 12:00:00 AM EDT eCW1 ([facility]) [facility] [place] [address] [place] [address] 10/19/2019 12:00:00 AM EDT eCW1 ([facility]) [facility] Dermatology Center [address] [place] [address] 10/17/2019 12:00:00 AM EDT eCW1 [facility] Dermatology Center [address] [place] [phone] 10/16/2019 12:00:00 AM EDT eCW1 ([facility]) [address] [address] 10/12/2019 12:00:00 AM EDT eCW1 ([facility]) [facility] Dermatology Center [address] [place] [address] 10/12/2019 12:00:00 AM EDT eCW1 ([facility]) Unknown [address] [place] [address] 10/10/2019 12:00:00 AM EDT eCW1 ([facility]) [facility] Dermatology [address] [place] [address] 10/10/2019 12:00:00 AM EDT eCW1 ([facility]) [facility] Dermatology [address] [place] [phone] 10/10/2019 12:00:00 AM EDT eCW1 ([facility]) Outpatient Referrer: Sarah HAYNES 10/09/2019 01:12:0 0 PM EDT [facility] Outpatient Attender: Asael Jay MD [facility] 10/06/2019 08:00:00 AM EST MEDENT ([facility] JAYNE almaguer) [address] [place] [address] 10/05/2019 12:00:00 AM EST eCW1 ([facility]) [facility] [place] [address] [facility] [address] 10/04/2019 12:00:00 AM EST eCW1 ([facility]) [facility] [place] [address] [facility] [address] 10/03/2019 12:00:00 AM EST eCW1 ([facility]) [facility] [place] [address] [facility] [address] 10/03/2019 12:00:00 AM EST eCW1 ([facility]) [facility] Dermatology [address] [place] [phone] 09/28/2019 12:00:00 AM EST eCW1 ([facility]) [facility] Dermatology Center [address] [place] [phone] 09/28/2019 12:00:00 AM EST eCW1 ([facility] [place] [address] [place] [address], [place] [address] 09/18/2019 12:00:00 AM EST eCW1 ([facility]) [facility] Dermatology Center [address] [place] [phone] 09/18/2019 12:00:00 AM EST eCW1 ([facility]) [facility] Dermatology Center [address] [place] [phone] 09/14/2019 12:00:00 AM EST eCW1 ([facility]) [facility] [place] [address] [place] [address], [place] [address] 09/12/2019 12:00:00 AM EST eCW1 ([facility]) [facility] Dermatology Center [address] [place] [phone] 09/12/2019 12:00:00 AM EST eCW1 ([facility]) [facility] Dermatology [address] [place] [phone] 09/08/2019 12:00:00 AM EST eCW1 ([facility]) [facility] Dermatology [address] [place] [address] 09/05/2019 12:00:00 AM EST eCW1 ([facility]) [facility] [place] [address] [facility] [address] 09/01/2019 12:00:00 AM EST eCW1 ([facility]) [facility] Dermatology Center [address] [place] [phone] 08/29/2019 12:00:00 AM EST eCW1 ([facility]) Outpatient Attender: PRINCE Pop 08/20/2019 08:00:00 AM EST MEDENT ([facility]) [facility] Dermatology [address] [place] [address] 08/09/2019 12:00:00 AM EST eCW1 ([facility]) Immunizations Vaccine Date Status Description Data Source(s) Tdap 11/24/2019 11:18:00 AM EDT completed e CW1 ([facility]) Tdap 11/24/2019 11:18:00 AM EDT completed e CW1 ([facility]) Tdap 11/24/2019 11:18:00 AM EDT completed e CW1 ([facility]) Tdap 11/24/2019 11:18:00 AM EDT completed e CW1 ([facility]) Tdap 11/24/2019 11:18:00 AM EDT completed e CW1 ([facility]) Tdap 11/24/2019 11:18:00 AM EDT completed e CW1 ([facility]) Tdap 11/24/2019 11:18:00 AM EDT completed e CW1 ([facility]) Tdap 11/24/2019 11:18:00 AM EDT completed e CW1 ([facility]) Tdap 11/24/2019 11:18:00 AM EDT completed e CW1 ([facility]) Tdap 11/24/2019 11:18:00 AM EDT completed e CW1 ([facility]) Tdap 11/24/2019 11:18:00 AM EDT completed e CW1 ([facility]) Tdap 11/24/2019 11:18:00 AM EDT completed e CW1 ([facility]) Tdap 11/24/2019 11:18:00 AM EDT completed e CW1 ([facility]) Tdap 11/24/2019 11:18:00 AM EDT completed e CW1 ([facility]) Tdap 11/24/2019 11:18:00 AM EDT completed e CW1 ([facility]) Tdap 11/24/2019 11:18:00 AM EDT completed e CW1 ([facility]) Tdap 11/24/2019 11:18:00 AM EDT completed e CW1 ([facility]) Tdap 11/24/2019 11:18:00 AM EDT completed e CW1 ([facility]) Tdap 11/24/2019 11:18:00 AM EDT completed e CW1 ([facility]) Tdap 11/24/2019 11:18:00 AM EDT completed e CW1 ([facility]) Tdap 11/24/2019 11:18:00 AM EDT completed e CW1 ([facility]) Tdap 11/24/2019 11:18:00 AM EDT completed e CW1 ([facility]) Tdap 11/24/2019 11:18:00 AM EDT completed e CW1 ([facility]) Tdap 11/24/2019 11:18:00 AM EDT completed e CW1 ([facility]) Medications Medication Brand Name Start Date Product Form Dose Route Admi nistrative Instructions Pharmacy Instructions Status Indications Reaction Description Data Source(s) Acetaminophen 500 MG Oral Tablet Acetaminophen 500 MG 2019 12:00:00 AM EST active Acetaminophen 500 MG eCW1 ([facility]) Acetaminophen 500 MG Oral Tablet Acetaminophen 500 MG 2019 12:00:00 AM EST active Acetaminophen 500 MG eCW1 ([facility]) Apixaban 2.5 MG UNK 07/08/2020 12:00:00 AM EST active Apixaban 2.5 MG eCW1 ([facility]) Aspir-Low 81 MG UNK 07/08/2020 12:00:00 AM EST 1.0 {tablet} active Aspir-Low 81 MG eCW1 ([facility]) Apixaban 2.5 MG UNK 07/08/2020 12:00:00 AM EST active Apixaban 2.5 MG eCW1 ([facility]) Acetaminophen 500 MG Oral Tablet Acetaminophen 500 MG 2019 12:00:00 AM EST active Acetaminophen 500 MG eCW1 ([facility]) Aspir-Low 81 MG UNK 07/08/2020 12:00:00 AM EST 1.0 {tablet} active Aspir-Low 81 MG eCW1 ([facility]) Allopurinol 100 MG Oral Tablet Allopurinol 100 MG 07/08/2020 12:00: 00 AM EST 1.0 {tablet} active Allopurinol 100 MG eCW1 ([facility]) Aspir-Low 81 MG UNK 07/08/2020 12:00:00 AM EST 1.0 {tablet} active Aspir-Low 81 MG eCW1 ([facility]) Aspir-Low 81 MG UNK 07/08/2020 12:00:00 AM EST 1.0 {tablet} active Aspir-Low 81 MG eCW1 ([facility]) Acetaminophen 500 MG Oral Tablet Acetaminophen 500 MG 2019 12:00:00 AM EST active Acetaminophen 500 MG eCW1 ([facility]) Apixaban 2.5 MG UNK 07/08/2020 12:00:00 AM EST active Apixaban 2.5 MG eCW1 ([facility]) Amlodipine 5 MG Oral Tablet AmLODIPine Besylate 5 MG AmLODIP ine Besylate 5 MG 07/08/2020 12:00:00 AM EST 1.0 {tablet} active AmLODIPine Besylate 5 MG eCW1 ([facility]) Apixaban 2.5 MG UNK 07/08/2020 12:00:00 AM EST active Apixaban 2.5 MG eCW1 ([facility]) Amlodipine 5 MG Oral Tablet AmLODIPine Besylate 5 MG AmLODIP ine Besylate 5 MG 07/08/2020 12:00:00 AM EST 1.0 {tablet} active AmLODIPine Besylate 5 MG eCW1 ([facility]) Amlodipine 5 MG Oral Tablet AmLODIPine Besylate 5 MG AmLODIP ine Besylate 5 MG 07/08/2020 12:00:00 AM EST 1.0 {tablet} active AmLODIPine Besylate 5 MG eCW1 ([facility]) Allopurinol 100 MG Oral Tablet Allopurinol 100 MG 07/08/2020 12:00: 00 AM EST 1.0 {tablet} active Allopurinol 100 MG eCW1 ([facility]) Allopurinol 100 MG Oral Tablet Allopurinol 100 MG 07/08/2020 12:00: 00 AM EST 1.0 {tablet} active Allopurinol 100 MG eCW1 ([facility]) Amlodipine 5 MG Oral Tablet AmLODIPine Besylate 5 MG AmLODIP ine Besylate 5 MG 07/08/2020 12:00:00 AM EST 1.0 {tablet} active AmLODIPine Besylate 5 MG eCW1 ([facility]) valacyclovir 1000 MG Oral Tablet [Valtrex] Valtrex 1 G M Oral Tablet Valtrex 1 GM Oral Tablet 06/07/2020 12:00:00 AM EST 1 activ e valacyclovir 1000 MG Oral Tablet [Valtrex] [place] (Smith Willoughby MD [facility]) prednisolone acetate 10 MG/ML Ophthalmic Suspension [Pred Forte] Pred Forte 1% Ophthalmic Suspension Pred Forte 1% Ophthalmic Suspension 06/07/2020 12:00:0 0 AM EST active predniso lone acetate 10 MG/ML Ophthalmic Suspension [Pred Forte] [place] ([facility] Willoughby MD [facility]) prednisolone acetate 10 MG/ML Ophthalmic Suspension [Pred Forte] Pred Forte 1% Ophthalmic Suspension Pred Forte 1% Ophthalmic Suspension 05/28/2020 12:00:0 0 AM EDT aborted predniso lone acetate 10 MG/ML Ophthalmic Suspension [Pred Forte] [place] ([facility] Willoughby MD [facility]) valacyclovir 1000 MG Oral Tablet [Valtrex] Valtrex 1 G M Oral Tablet Valtrex 1 GM Oral Tablet 05/28/2020 12:00:00 AM EDT 1 abort ed valacyclovir 1000 MG Oral Tablet [Valtrex] [place] ([facility] Willough[facility]) Doxycycline Monohydrate 100 MG Oral Capsule Doxycycline [place] hydrate 03/03/2020 12:00:00 AM EDT ORAL active M EDENT ([facility], [facility]) Triamcinolone Acetonide 1 MG/ML Topical Cream Triamcinolone Acetonide 03/03/2020 12:00:00 AM EDT active MEDENT ([facility], [facility]) Cephalexin 250 MG Oral Tablet Cephalexin 250 MG 02/12/2020 12:00:00 AM EDT 1.0 {capsule} active Cephalexin 250 MG eCW 1 ([facility]) Cephalexin 250 MG Oral Tablet Cephalexin 250 MG 02/12/2020 12:00:00 AM EDT 1.0 {capsule} active Cephalexin 250 MG eCW 1 ([facility]) Cephalexin 250 MG Oral Tablet Cephalexin 250 MG 02/12/2020 12:00:00 AM EDT 1.0 {capsule} active Cephalexin 250 MG eCW 1 ([facility]) Cephalexin 250 MG Oral Tablet Cephalexin 250 MG 02/12/2020 12:00:00 AM EDT 1.0 {capsule} active Cephalexin 250 MG eCW 1 ([facility]) Cephalexin 250 MG Oral Tablet Cephalexin 250 MG 02/12/2020 12:00:00 AM EDT 1.0 {capsule} active Cephalexin 250 MG eCW 1 ([facility]) Cephalexin 250 MG Oral Tablet Cephalexin 250 MG 02/12/2020 12:00:00 AM EDT 1.0 {capsule} active Cephalexin 250 MG eCW 1 ([facility]) Cephalexin 250 MG Oral Tablet Cephalexin 250 MG 02/12/2020 12:00:00 AM EDT 1.0 {capsule} active Cephalexin 250 MG eCW 1 ([facility]) Cephalexin 250 MG Oral Tablet Cephalexin 250 MG 02/12/2020 12:00:00 AM EDT 1.0 {capsule} active Cephalexin 250 MG eCW 1 ([facility]) Cephalexin 250 MG Oral Tablet Cephalexin 250 MG 02/12/2020 12:00:00 AM EDT 1.0 {capsule} active Cephalexin 250 MG eCW 1 ([facility]) Cephalexin 250 MG Oral Tablet Cephalexin 250 MG 02/12/2020 12:00:00 AM EDT 1.0 {capsule} active Cephalexin 250 MG eCW 1 ([facility]) Cephalexin 250 MG Oral Tablet Cephalexin 250 MG 02/12/2020 12:00:00 AM EDT 1.0 {capsule} active Cephalexin 250 MG eCW 1 ([facility]) Cephalexin 250 MG Oral Tablet Cephalexin 250 MG 02/12/2020 12:00:00 AM EDT 1.0 {capsule} active Cephalexin 250 MG eCW 1 ([facility]) Mupirocin 0.02 MG/MG Topical Ointment Mupirocin 2 % Mupiroci n 2 % 12/14/2019 12:00:00 AM EDT 1.0 {application} active Mupirocin 2 % eCW1 ([facility]) apixaban 2.5 MG Oral Tablet [Eliquis] Eliquis 2.5 MG Eliquis 2.5 MG 12/14/2019 12:00:00 AM EDT active Eliquis 2.5 MG eCW1 ([facility]) montelukast 10 MG Oral Tablet Montelukast Sodium 10 MG Benny lukast Sodium 10 MG 12/14/2019 12:00:00 AM EDT 1.0 {tablet} active Montelukast Sodium 10 MG eCW1 ([facility]) Mupirocin 0.02 MG/MG Topical Ointment Mupirocin 2 % Mupiroci n 2 % 12/14/2019 12:00:00 AM EDT 1.0 {application} active Mupirocin 2 % eCW1 ([facility]) Potassium Chloride 20 MEQ Extended Relea se Oral Tablet Potassium Chloride ER 20 MEQ Potassium Chloride ER 20 MEQ 12/14/2019 12:00:00 AM EDT 1.0 {tablet_with_food} active Potassium Chl oride ER 20 MEQ eCW1 ([facility]) Mupirocin 0.02 MG/MG Topical Ointment Mupirocin 2 % Mupiroci n 2 % 12/14/2019 12:00:00 AM EDT 1.0 {application} active Mupirocin 2 % eCW1 ([facility]) Potassium Chloride 20 MEQ Extended Relea se Oral Tablet Potassium Chloride ER 20 MEQ Potassium Chloride ER 20 MEQ 12/14/2019 12:00:00 AM EDT 1.0 {tablet_with_food} active Potassium Chl oride ER 20 MEQ eCW1 ([facility]) apixaban 2.5 MG Oral Tablet [Eliquis] Eliquis 2.5 MG Eliquis 2.5 MG 12/14/2019 12:00:00 AM EDT active Eliquis 2.5 MG eCW1 ([facility]) Acetaminophen 500 MG Oral Tablet Acetaminophen 500 MG 2019 12:00:00 AM EDT active Acetaminophen 500 MG eCW1 ([facility]) montelukast 10 MG Oral Tablet Montelukast Sodium 10 MG Benny lukast Sodium 10 MG 12/14/2019 12:00:00 AM EDT 1.0 {tablet} active Montelukast Sodium 10 MG eCW1 ([facility]) apixaban 2.5 MG Oral Tablet [Eliquis] Eliquis 2.5 MG Eliquis 2.5 MG 12/14/2019 12:00:00 AM EDT active Eliquis 2.5 MG eCW1 (Formerly [facility]) Acetaminophen 500 MG Oral Tablet Acetaminophen 500 MG 2019 12:00:00 AM EDT active Acetaminophen 500 MG eCW1 (Formerly [facility]) Acetaminophen 500 MG Oral Tablet Acetaminophen 500 MG 2019 12:00:00 AM EDT active Acetaminophen 500 MG eCW1 (Formerly [facility]) apixaban 2.5 MG Oral Tablet [Eliquis] Eliquis 2.5 MG Eliquis 2.5 MG 12/14/2019 12:00:00 AM EDT active Eliquis 2.5 MG eCW1 (Formerly [facility]) apixaban 2.5 MG Oral Tablet [Eliquis] Eliquis 2.5 MG Eliquis 2.5 MG 12/14/2019 12:00:00 AM EDT active Eliquis 2.5 MG eCW1 (Formerly [facility]) Potassium Chloride 20 MEQ Extended Relea se Oral Tablet Potassium Chloride ER 20 MEQ Potassium Chloride ER 20 MEQ 12/14/2019 12:00:00 AM EDT active 1 tablet with food eCW1 ([facility]) apixaban 2.5 MG Oral Tablet [Eliquis] Eliquis 2.5 MG Eliquis 2.5 MG 12/14/2019 12:00:00 AM EDT active Eliquis 2.5 MG eCW1 (Formerly [facility]) apixaban 2.5 MG Oral Tablet [Eliquis] Eliquis 2.5 MG Eliquis 2.5 MG 12/14/2019 12:00:00 AM EDT active Eliquis 2.5 MG eCW1 (Formerly [facility]) Mupirocin 0.02 MG/MG Topical Ointment Mupirocin 2 % Mupiroci n 2 % 12/14/2019 12:00:00 AM EDT 1.0 {application} active Mupirocin 2 % eCW1 (Formerly [facility]) montelukast 10 MG Oral Tablet Montelukast Sodium 10 MG Benny lukast Sodium 10 MG 12/14/2019 12:00:00 AM EDT active 1 tablet eCW1 (Formerly [facility]) montelukast 10 MG Oral Tablet Montelukast Sodium 10 MG Benny lukast Sodium 10 MG 12/14/2019 12:00:00 AM EDT active 1 tablet eCW1 (Formerly [facility]) Potassium Chloride 20 MEQ Extended Relea se Oral Tablet Potassium Chloride ER 20 MEQ Potassium Chloride ER 20 MEQ 12/14/2019 12:00:00 AM EDT 1.0 {tablet_with_food} active Potassium Chl oride ER 20 MEQ eCW1 (Formerly [facility]) Mupirocin 0.02 MG/MG Topical Ointment Mupirocin 2 % Mupiroci n 2 % 12/14/2019 12:00:00 AM EDT 1.0 {application} active Mupirocin 2 % eCW1 (Formerly [facility]) apixaban 2.5 MG Oral Tablet [Eliquis] Eliquis 2.5 MG Eliquis 2.5 MG 12/14/2019 12:00:00 AM EDT active Eliquis 2.5 MG eCW1 (Formerly [facility]) Mupirocin 0.02 MG/MG Topical Ointment Mupirocin 2 % Mupiroci n 2 % 12/14/2019 12:00:00 AM EDT 1.0 {application} active Mupirocin 2 % eCW1 (Formerly [facility]) Mupirocin 0.02 MG/MG Topical Ointment Mupirocin 2 % Mupiroci n 2 % 12/14/2019 12:00:00 AM EDT 1.0 {application} active Mupirocin 2 % eCW1 (Formerly [facility]) montelukast 10 MG Oral Tablet Montelukast Sodium 10 MG Benny lukast Sodium 10 MG 12/14/2019 12:00:00 AM EDT 1.0 {tablet} active Montelukast Sodium 10 MG eCW1 (Formerly [facility]) apixaban 2.5 MG Oral Tablet [Eliquis] Eliquis 2.5 MG Eliquis 2.5 MG 12/14/2019 12:00:00 AM EDT active Eliquis 2.5 MG eCW1 (Formerly [facility]) Mupirocin 0.02 MG/MG Topical Ointment Mupirocin 2 % Mupiroci n 2 % 12/14/2019 12:00:00 AM EDT 1.0 {application} active Mupirocin 2 % eCW1 (Formerly [facility]) Potassium Chloride 20 MEQ Extended Relea se Oral Tablet Potassium Chloride ER 20 MEQ Potassium Chloride ER 20 MEQ 12/14/2019 12:00:00 AM EDT 1.0 {tablet_with_food} active Potassium Chl oride ER 20 MEQ eCW1 (Formerly [facility]) Acetaminophen 500 MG Oral Tablet Acetaminophen 500 MG 2019 12:00:00 AM EDT active Acetaminophen 500 MG eCW1 (Formerly [facility]) Mupirocin 0.02 MG/MG Topical Ointment Mupirocin 2 % Mupiroci n 2 % 12/14/2019 12:00:00 AM EDT 1.0 {application} active Mupirocin 2 % eCW1 (Formerly [facility]) Acetaminophen 500 MG Oral Tablet Acetaminophen 500 MG 2019 12:00:00 AM EDT active Acetaminophen 500 MG eCW1 (Formerly [facility]) montelukast 10 MG Oral Tablet Montelukast Sodium 10 MG Benny lukast Sodium 10 MG 12/14/2019 12:00:00 AM EDT 1.0 {tablet} active Montelukast Sodium 10 MG eCW1 (Formerly [facility]) Potassium Chloride 10 MEQ Extended Relea se Oral Tablet Potassium Chloride ER 10 MEQ Potassium Chloride ER 10 MEQ 12/14/2019 12:00:00 AM EDT 1.0 {tablet_with_food} active Potassium Chl oride ER 10 MEQ eCW1 (Formerly [facility]) Potassium Chloride 10 MEQ Extended Relea se Oral Tablet Potassium Chloride ER 10 MEQ Potassium Chloride ER 10 MEQ 12/14/2019 12:00:00 AM EDT 1.0 {tablet_with_food} active Potassium Chl oride ER 10 MEQ eCW1 (Formerly [facility]) Acetaminophen 500 MG Oral Tablet Acetaminophen 500 MG 2019 12:00:00 AM EDT active Acetaminophen 500 MG eCW1 (Formerly [facility]) Mupirocin 0.02 MG/MG Topical Ointment Mupirocin 2 % Mupiroci n 2 % 12/14/2019 12:00:00 AM EDT 1.0 {application} active Mupirocin 2 % eCW1 (Formerly [facility]) Acetaminophen 500 MG Oral Tablet Acetaminophen 500 MG 2019 12:00:00 AM EDT active Acetaminophen 500 MG eCW1 (Formerly [facility]) apixaban 2.5 MG Oral Tablet [Eliquis] Eliquis 2.5 MG Eliquis 2.5 MG 12/14/2019 12:00:00 AM EDT active 1 tab e CW1 (Formerly [facility]) montelukast 10 MG Oral Tablet Montelukast Sodium 10 MG Benny lukast Sodium 10 MG 12/14/2019 12:00:00 AM EDT 1.0 {tablet} active Montelukast Sodium 10 MG eCW1 (Formerly [facility]) montelukast 10 MG Oral Tablet Montelukast Sodium 10 MG Benny lukast Sodium 10 MG 12/14/2019 12:00:00 AM EDT 1.0 {tablet} active Montelukast Sodium 10 MG eCW1 (Formerly [facility]) montelukast 10 MG Oral Tablet Montelukast Sodium 10 MG Benny lukast Sodium 10 MG 12/14/2019 12:00:00 AM EDT 1.0 {tablet} active Montelukast Sodium 10 MG eCW1 (Formerly [facility]) Potassium Chloride 20 MEQ Extended Relea se Oral Tablet Potassium Chloride ER 20 MEQ Potassium Chloride ER 20 MEQ 12/14/2019 12:00:00 AM EDT 1.0 {tablet_with_food} active Potassium Chl oride ER 20 MEQ eCW1 (Formerly [facility]) montelukast 10 MG Oral Tablet Montelukast Sodium 10 MG Benny lukast Sodium 10 MG 12/14/2019 12:00:00 AM EDT 1.0 {tablet} active Montelukast Sodium 10 MG eCW1 (Formerly [facility]) valacyclovir 500 MG Oral Tablet Valacyclovir HCl 500 MG Vala cyclovir HCl 500 MG 12/14/2019 12:00:00 AM EDT active 1 tablet eCW1 (Formerly [facility]) Acetaminophen 500 MG Oral Tablet Acetaminophen 500 MG 2019 12:00:00 AM EDT active Acetaminophen 500 MG eCW1 (Formerly [facility]) Mupirocin 0.02 MG/MG Topical Ointment Mupirocin 2 % Mupiroci n 2 % 12/14/2019 12:00:00 AM EDT 1.0 {application} active Mupirocin 2 % eCW1 (Formerly [facility]) montelukast 10 MG Oral Tablet Montelukast Sodium 10 MG Benny lukast Sodium 10 MG 12/14/2019 12:00:00 AM EDT 1.0 {tablet} active Montelukast Sodium 10 MG eCW1 (Formerly [facility]) Potassium Chloride 20 MEQ Extended Relea se Oral Tablet Potassium Chloride ER 20 MEQ Potassium Chloride ER 20 MEQ 12/14/2019 12:00:00 AM EDT 1.0 {tablet_with_food} active Potassium Chl oride ER 20 MEQ eCW1 (Formerly [facility]) Potassium Chloride 20 MEQ Extended Relea se Oral Tablet Potassium Chloride ER 20 MEQ Potassium Chloride ER 20 MEQ 12/14/2019 12:00:00 AM EDT 1.0 {tablet_with_food} active Potassium Chl oride ER 20 MEQ eCW1 (Formerly [facility]) Mupirocin 0.02 MG/MG Topical Ointment Mupirocin 2 % Mupiroci n 2 % 12/14/2019 12:00:00 AM EDT active 1 applic ation eCW1 (Formerly [facility]) Acetaminophen 500 MG Oral Tablet Acetaminophen 500 MG 2019 12:00:00 AM EDT active Acetaminophen 500 MG eCW1 (Formerly [facility]) Acetaminophen 500 MG Oral Tablet Acetaminophen 500 MG 2019 12:00:00 AM EDT active 1000 mg eCW1 ([facility]) Mupirocin 0.02 MG/MG Topical Ointment Mupirocin 2 % Mupiroci n 2 % 12/14/2019 12:00:00 AM EDT 1.0 {application} active Mupirocin 2 % eCW1 (Formerly [facility]) Acetaminophen 500 MG Oral Tablet Acetaminophen 500 MG 2019 12:00:00 AM EDT active Acetaminophen 500 MG eCW1 (Formerly [facility]) Acetaminophen 500 MG Oral Tablet Acetaminophen 500 MG 2019 12:00:00 AM EDT active Acetaminophen 500 MG eCW1 (Formerly [facility]) Mupirocin 0.02 MG/MG Topical Ointment Mupirocin 2 % Mupiroci n 2 % 12/14/2019 12:00:00 AM EDT 1.0 {application} active Mupirocin 2 % eCW1 (Formerly [facility]) montelukast 10 MG Oral Tablet Montelukast Sodium 10 MG Benny lukast Sodium 10 MG 12/14/2019 12:00:00 AM EDT 1.0 {tablet} active Montelukast Sodium 10 MG eCW1 (Formerly [facility]) Mupirocin 0.02 MG/MG Topical Ointment Mupirocin 2 % Mupiroci n 2 % 12/14/2019 12:00:00 AM EDT 1.0 {application} active Mupirocin 2 % eCW1 (Formerly [facility]) Potassium Chloride 20 MEQ Extended Relea se Oral Tablet Potassium Chloride ER 20 MEQ Potassium Chloride ER 20 MEQ 12/14/2019 12:00:00 AM EDT 1.0 {tablet_with_food} active Potassium Chl oride ER 20 MEQ eCW1 (Formerly [facility]) Acetaminophen 500 MG Oral Tablet Acetaminophen 500 MG 2019 12:00:00 AM EDT active Acetaminophen 500 MG eCW1 (Formerly [facility]) Potassium Chloride 20 MEQ Extended Relea se Oral Tablet Potassium Chloride ER 20 MEQ Potassium Chloride ER 20 MEQ 12/14/2019 12:00:00 AM EDT 1.0 {tablet_with_food} active Potassium Chl oride ER 20 MEQ eCW1 (Formerly [facility]) Mupirocin 0.02 MG/MG Topical Ointment Mupirocin 2 % Mupiroci n 2 % 12/14/2019 12:00:00 AM EDT 1.0 {application} active Mupirocin 2 % eCW1 (Formerly [facility]) montelukast 10 MG Oral Tablet Montelukast Sodium 10 MG Benny lukast Sodium 10 MG 12/14/2019 12:00:00 AM EDT 1.0 {tablet} active Montelukast Sodium 10 MG eCW1 (Formerly [facility]) Acetaminophen 500 MG Oral Tablet Acetaminophen 500 MG 2019 12:00:00 AM EDT active Acetaminophen 500 MG eCW1 (Formerly [facility]) apixaban 2.5 MG Oral Tablet [Eliquis] Eliquis 2.5 MG Eliquis 2.5 MG 12/14/2019 12:00:00 AM EDT active 1 tab e CW1 (Formerly [facility]) Mupirocin 0.02 MG/MG Topical Ointment Mupirocin 2 % Mupiroci n 2 % 12/14/2019 12:00:00 AM EDT active 1 applic ation eCW1 (Formerly [facility]) apixaban 2.5 MG Oral Tablet [Eliquis] Eliquis 2.5 MG Eliquis 2.5 MG 12/14/2019 12:00:00 AM EDT active Eliquis 2.5 MG eCW1 (Formerly [facility]) apixaban 2.5 MG Oral Tablet [Eliquis] Eliquis 2.5 MG Eliquis 2.5 MG 12/14/2019 12:00:00 AM EDT active Eliquis 2.5 MG eCW1 (Formerly [facility]) montelukast 10 MG Oral Tablet Montelukast Sodium 10 MG Benny lukast Sodium 10 MG 12/14/2019 12:00:00 AM EDT 1.0 {tablet} active Montelukast Sodium 10 MG eCW1 (Formerly [facility]) Potassium Chloride 20 MEQ Extended Relea se Oral Tablet Potassium Chloride ER 20 MEQ Potassium Chloride ER 20 MEQ 12/14/2019 12:00:00 AM EDT 1.0 {tablet_with_food} active Potassium Chl oride ER 20 MEQ eCW1 (Formerly [facility]) montelukast 10 MG Oral Tablet Montelukast Sodium 10 MG Benny lukast Sodium 10 MG 12/14/2019 12:00:00 AM EDT 1.0 {tablet} active Montelukast Sodium 10 MG eCW1 (Formerly [facility]) Mupirocin 0.02 MG/MG Topical Ointment Mupirocin 2 % Mupiroci n 2 % 12/14/2019 12:00:00 AM EDT 1.0 {application} active Mupirocin 2 % eCW1 (Formerly [facility]) Potassium Chloride 20 MEQ Extended Relea se Oral Tablet Potassium Chloride ER 20 MEQ Potassium Chloride ER 20 MEQ 12/14/2019 12:00:00 AM EDT 1.0 {tablet_with_food} active Potassium Chl oride ER 20 MEQ eCW1 (Formerly [facility]) Potassium Chloride 20 MEQ Extended Relea se Oral Tablet Potassium Chloride ER 20 MEQ Potassium Chloride ER 20 MEQ 12/14/2019 12:00:00 AM EDT 1.0 {tablet_with_food} active Potassium Chl oride ER 20 MEQ eCW1 (Formerly [facility]) Potassium Chloride 20 MEQ Extended Relea se Oral Tablet Potassium Chloride ER 20 MEQ Potassium Chloride ER 20 MEQ 12/14/2019 12:00:00 AM EDT 1.0 {tablet_with_food} active Potassium Chl oride ER 20 MEQ eCW1 (Formerly [facility]) Acetaminophen 500 MG Oral Tablet Acetaminophen 500 MG 2019 12:00:00 AM EDT active Acetaminophen 500 MG eCW1 (Formerly [facility]) apixaban 2.5 MG Oral Tablet [Eliquis] Eliquis 2.5 MG Eliquis 2.5 MG 12/14/2019 12:00:00 AM EDT active Eliquis 2.5 MG eCW1 (Formerly [facility]) Potassium Chloride 20 MEQ Extended Relea se Oral Tablet Potassium Chloride ER 20 MEQ Potassium Chloride ER 20 MEQ 12/14/2019 12:00:00 AM EDT active 1 tablet with food eCW1 ([facility]) apixaban 2.5 MG Oral Tablet [Eliquis] Eliquis 2.5 MG Eliquis 2.5 MG 12/14/2019 12:00:00 AM EDT active Eliquis 2.5 MG eCW1 (Formerly [facility]) Mupirocin 0.02 MG/MG Topical Ointment Mupirocin 2 % Mupiroci n 2 % 12/14/2019 12:00:00 AM EDT 1.0 {application} active Mupirocin 2 % eCW1 (Formerly [facility]) Mupirocin 0.02 MG/MG Topical Ointment Mupirocin 2 % Mupiroci n 2 % 12/14/2019 12:00:00 AM EDT 1.0 {application} active Mupirocin 2 % eCW1 (Formerly [facility]) Mupirocin 0.02 MG/MG Topical Ointment Mupirocin 2 % Mupiroci n 2 % 12/14/2019 12:00:00 AM EDT 1.0 {application} active Mupirocin 2 % eCW1 (Formerly [facility]) montelukast 10 MG Oral Tablet Montelukast Sodium 10 MG Benny lukast Sodium 10 MG 12/14/2019 12:00:00 AM EDT 1.0 {tablet} active Montelukast Sodium 10 MG eCW1 (Formerly [facility]) montelukast 10 MG Oral Tablet Montelukast Sodium 10 MG Benny lukast Sodium 10 MG 12/14/2019 12:00:00 AM EDT 1.0 {tablet} active Montelukast Sodium 10 MG eCW1 (Formerly [facility]) Acetaminophen 500 MG Oral Tablet Acetaminophen 500 MG 2019 12:00:00 AM EDT active Acetaminophen 500 MG eCW1 (Formerly [facility]) Acetaminophen 500 MG Oral Tablet Acetaminophen 500 MG 2019 12:00:00 AM EDT active Acetaminophen 500 MG eCW1 (Formerly [facility]) montelukast 10 MG Oral Tablet Montelukast Sodium 10 MG Benny lukast Sodium 10 MG 12/14/2019 12:00:00 AM EDT 1.0 {tablet} active Montelukast Sodium 10 MG eCW1 (Formerly [facility]) Potassium Chloride 10 MEQ Extended Relea se Oral Tablet Potassium Chloride ER 10 MEQ Potassium Chloride ER 10 MEQ 12/14/2019 12:00:00 AM EDT 1.0 {tablet_with_food} active Potassium Chl oride ER 10 MEQ eCW1 (Formerly [facility]) apixaban 2.5 MG Oral Tablet [Eliquis] Eliquis 2.5 MG Eliquis 2.5 MG 12/14/2019 12:00:00 AM EDT active Eliquis 2.5 MG eCW1 (Formerly [facility]) montelukast 10 MG Oral Tablet Montelukast Sodium 10 MG Benny lukast Sodium 10 MG 12/14/2019 12:00:00 AM EDT 1.0 {tablet} active Montelukast Sodium 10 MG eCW1 (Formerly [facility]) Potassium Chloride 20 MEQ Extended Relea se Oral Tablet Potassium Chloride ER 20 MEQ Potassium Chloride ER 20 MEQ 12/14/2019 12:00:00 AM EDT 1.0 {tablet_with_food} active Potassium Chl oride ER 20 MEQ eCW1 (Formerly [facility]) Mupirocin 0.02 MG/MG Topical Ointment Mupirocin 2 % Mupiroci n 2 % 12/14/2019 12:00:00 AM EDT 1.0 {application} active Mupirocin 2 % eCW1 (Formerly [facility]) montelukast 10 MG Oral Tablet Montelukast Sodium 10 MG Benny lukast Sodium 10 MG 12/14/2019 12:00:00 AM EDT 1.0 {tablet} active Montelukast Sodium 10 MG eCW1 (Formerly [facility]) Mupirocin 0.02 MG/MG Topical Ointment Mupirocin 2 % Mupiroci n 2 % 12/14/2019 12:00:00 AM EDT 1.0 {application} active Mupirocin 2 % eCW1 (Formerly [facility]) apixaban 2.5 MG Oral Tablet [Eliquis] Eliquis 2.5 MG Eliquis 2.5 MG 12/14/2019 12:00:00 AM EDT active Eliquis 2.5 MG eCW1 (Formerly [facility]) montelukast 10 MG Oral Tablet Montelukast Sodium 10 MG Benny lukast Sodium 10 MG 12/14/2019 12:00:00 AM EDT 1.0 {tablet} active Montelukast Sodium 10 MG eCW1 (Formerly [facility]) montelukast 10 MG Oral Tablet Montelukast Sodium 10 MG Benny lukast Sodium 10 MG 12/14/2019 12:00:00 AM EDT 1.0 {tablet} active Montelukast Sodium 10 MG eCW1 (Formerly [facility]) apixaban 2.5 MG Oral Tablet [Eliquis] Eliquis 2.5 MG Eliquis 2.5 MG 12/14/2019 12:00:00 AM EDT active Eliquis 2.5 MG eCW1 (Formerly [facility]) Potassium Chloride 20 MEQ Extended Relea se Oral Tablet Potassium Chloride ER 20 MEQ Potassium Chloride ER 20 MEQ 12/14/2019 12:00:00 AM EDT 1.0 {tablet_with_food} active Potassium Chl oride ER 20 MEQ eCW1 (Formerly [facility]) Potassium Chloride 10 MEQ Extended Relea se Oral Tablet Potassium Chloride ER 10 MEQ Potassium Chloride ER 10 MEQ 12/14/2019 12:00:00 AM EDT 1.0 {tablet_with_food} active Potassium Chl oride ER 10 MEQ eCW1 (Formerly [facility]) Potassium Chloride 20 MEQ Extended Relea se Oral Tablet Potassium Chloride ER 20 MEQ Potassium Chloride ER 20 MEQ 12/14/2019 12:00:00 AM EDT 1.0 {tablet_with_food} active Potassium Chl oride ER 20 MEQ eCW1 (Formerly [facility]) montelukast 10 MG Oral Tablet Montelukast Sodium 10 MG Benny lukast Sodium 10 MG 12/14/2019 12:00:00 AM EDT 1.0 {tablet} active Montelukast Sodium 10 MG eCW1 (Formerly [facility]) montelukast 10 MG Oral Tablet Montelukast Sodium 10 MG Benny lukast Sodium 10 MG 12/14/2019 12:00:00 AM EDT 1.0 {tablet} active Montelukast Sodium 10 MG eCW1 (Formerly [facility]) apixaban 2.5 MG Oral Tablet [Eliquis] Eliquis 2.5 MG Eliquis 2.5 MG 12/14/2019 12:00:00 AM EDT active Eliquis 2.5 MG eCW1 (Formerly [facility]) Potassium Chloride 20 MEQ Extended Relea se Oral Tablet Potassium Chloride ER 20 MEQ Potassium Chloride ER 20 MEQ 12/14/2019 12:00:00 AM EDT 1.0 {tablet_with_food} active Potassium Chl oride ER 20 MEQ eCW1 (Formerly [facility]) Acetaminophen 500 MG Oral Tablet Acetaminophen 500 MG 2019 12:00:00 AM EDT active Acetaminophen 500 MG eCW1 (Formerly [facility]) Acetaminophen 500 MG Oral Tablet Acetaminophen 500 MG 2019 12:00:00 AM EDT active 1000 mg eCW1 ([facility]) Potassium Chloride 20 MEQ Extended Relea se Oral Tablet Potassium Chloride ER 20 MEQ Potassium Chloride ER 20 MEQ 12/14/2019 12:00:00 AM EDT 1.0 {tablet_with_food} active Potassium Chl oride ER 20 MEQ eCW1 (Formerly [facility]) Acetaminophen 500 MG Oral Tablet Acetaminophen 500 MG 2019 12:00:00 AM EDT active Acetaminophen 500 MG eCW1 (Formerly [facility]) Acetaminophen 500 MG Oral Tablet Acetaminophen 500 MG 2019 12:00:00 AM EDT active Acetaminophen 500 MG eCW1 (Formerly [facility]) Mupirocin 0.02 MG/MG Topical Ointment Mupirocin 2 % Mupiroci n 2 % 12/14/2019 12:00:00 AM EDT 1.0 {application} active Mupirocin 2 % eCW1 (Formerly [facility]) Mupirocin 0.02 MG/MG Topical Ointment Mupirocin 2 % Mupiroci n 2 % 12/14/2019 12:00:00 AM EDT 1.0 {application} active Mupirocin 2 % eCW1 (Formerly [facility]) apixaban 2.5 MG Oral Tablet [Eliquis] Eliquis 2.5 MG Eliquis 2.5 MG 12/14/2019 12:00:00 AM EDT active Eliquis 2.5 MG eCW1 (Formerly [facility]) apixaban 2.5 MG Oral Tablet [Eliquis] Eliquis 2.5 MG Eliquis 2.5 MG 12/14/2019 12:00:00 AM EDT active Eliquis 2.5 MG eCW1 (Formerly [facility]) Potassium Chloride 20 MEQ Extended Relea se Oral Tablet Potassium Chloride ER 20 MEQ Potassium Chloride ER 20 MEQ 12/14/2019 12:00:00 AM EDT 1.0 {tablet_with_food} active Potassium Chl oride ER 20 MEQ eCW1 (Formerly [facility]) Cephalexin 500 MG Oral Tablet Cephalexin 500 MG 11/29/2019 12:00:00 A M EDT active 1 tablet eCW1 ([facility]) Bactroban 2% UNK 11/29/2019 12:00:00 AM EDT activ e as directed eCW1 (Formerly [facility]) Bactroban 2% UNK 11/29/2019 12:00:00 AM EDT activ e as directed eCW1 (Formerly [facility]) Cephalexin 500 MG Oral Tablet Cephalexin 500 MG 11/29/2019 12:00:00 A M EDT active 1 tablet eCW1 ([facility]) gabapentin 100 MG Oral Capsule Gabapentin 100 MG Gabapentin 100 MG 11/08/2019 12:00:00 AM EDT active 1 capsul e eCW1 (Formerly [facility]) gabapentin 100 MG Oral Capsule Gabapentin 100 MG Gabapentin 100 MG 11/08/2019 12:00:00 AM EDT active 1 capsul e eCW1 (Formerly [facility]) gabapentin 100 MG Oral Capsule Gabapentin 100 MG Gabapentin 100 MG 11/08/2019 12:00:00 AM EDT active 1 capsul e eCW1 (Formerly [facility]) 24 HR metoprolol succinate 50 MG Extende d Release Oral Tablet Metoprolol Succinate ER 50 MG Metoprolol Succinate ER 50 MG 10/19/2019 12:00:00 AM EDT active 1 tablet eCW1 ([facility]) Magnesium Oxide 400 MG Magnesium Oxide 400 MG 10/19/2019 12:00:00 AM E DT active 1 cap eCW1 (Formerly [facility]) Dupilumab 300 MG/2ML UNK 10/19/2019 12:00:00 AM EDT suspended 2 ml eCW1 (Formerly [facility]) Dupilumab 300 MG/2ML UNK 10/19/2019 12:00:00 AM EDT suspended 2 ml eCW1 (Formerly [facility]) Magnesium Oxide 400 MG Magnesium Oxide 400 MG 10/19/2019 12:00:00 AM E DT active 1 cap eCW1 (Formerly [facility]) Dupilumab 300 MG/2ML UNK 10/19/2019 12:00:00 AM EDT active 2 ml eCW1 (Formerly [facility]) K Dur 20 MEQ UNK 10/19/2019 12:00:00 AM EDT activ e 1 tab eCW1 (Formerly [facility]) Dupilumab 300 MG/2ML UNK 10/19/2019 12:00:00 AM EDT active 2 ml eCW1 (Formerly [facility]) K Dur 20 MEQ UNK 10/19/2019 12:00:00 AM EDT activ e 1 tab eCW1 (Formerly [facility]) Magnesium Oxide 400 MG Magnesium Oxide 400 MG 10/19/2019 12:00:00 AM E DT active 1 cap eCW1 (Formerly [facility]) K Dur 20 MEQ UNK 10/19/2019 12:00:00 AM EDT activ e 1 tab eCW1 (Formerly [facility]) 24 HR metoprolol succinate 50 MG Extende d Release Oral Tablet Metoprolol Succinate ER 50 MG Metoprolol Succinate ER 50 MG 10/19/2019 12:00:00 AM EDT active 1 tablet eCW1 ([facility]) 24 HR metoprolol succinate 50 MG Extende d Release Oral Tablet Metoprolol Succinate ER 50 MG Metoprolol Succinate ER 50 MG 10/19/2019 12:00:00 AM EDT active 1 tablet eCW1 ([facility]) Doxycycline Monohydrate 100 MG Oral Capsule Doxycycline [place] hydrate 08/20/2019 12:00:00 AM EST ORAL completed MEDENT ([facility], [facility]) valacyclovir 500 MG Oral Tablet [Valtrex] Valtrex 500 MG Oral Tablet Valtrex 500 MG Oral Tablet 06/22/2019 12:00:00 AM EST 1 ab orted valacyclovir 500 MG Oral Tablet [Valtrex] RENETTA ([facility]) loteprednol etabonate 0.005 MG/MG Ophtha lmic Gel [Lotemax] Lotemax 0.5% Ophthalmic Gel Lotemax 0.5% Ophthalmic Gel 02/24/2019 12:00:00 AM EDT aborted loteprednol etabonate 0.005 MG/M G Ophthalmic Gel [Lotemax] RENETTA ([facility]) doxycycline hyclate 50 MG Oral Tablet Doxycycline Hycl ate 50MG Oral Tablet Doxycycline Hyclate 50MG Oral Tablet 02/10/2019 12:00:00 AM EDT 1 aborted doxycycline hyclate 50 MG Oral T ablet RENETTA ([facility]) Insurance Providers Payer name Policy type / Coverage type Policy ID Covered libertarian ID Covered libertarian's relationship to zavala Policy Zavala Plan Information [facility] [id number] SP [id number] MEDICARE [id number] SP [id number] [id number] SP [id number] MEDICARE PART A -O [id number] 18 [id number] [facility] -O [id number] 18 [id number] MEDICARE PART A -I/P [id number] 18 [id number] MEDICARE PART A -O/P [id number] 18 [id number] [facility] -O/P [id number] 18 [id number] Medicare Part B [facility] Other 0 Se lf 0 WELLCARE [id number] SP [id number] MEDICARE C [id number] S [id number] AARP O [id number] S [id number] WELLCARE O [id number] S [id number] WELLCARE -O/P [id number] 18 [id number] MEDICARE [id number] SP [id number] WELLCARE - PHYSICIAN [id number] 18 [id number] [facility] OPTIONS -PHYSICIAN [id number] 18 [id number] WELLCARE -I/P [id number] 18 [id number] MEDICARE PART A -O/P 12 18 12 [employer] [id number] SP [id number] MEDICARE [id number] SP [id number] A [place] OPTIONSDO NOT USE [id number] SP [id number] MEDICARE [id number] SP [id number] WELLCARE [id number] SP [id number] MEDICARE C [id number] S [id number] WELLCARE [id number] SP [id number] Medicare Part B [facility] Other 0 Se lf 0 Medicare Part B [facility] Other 0 Se lf 0 ANSI-Medicare Part B [id number] ANSI-Health Maintenance Organization (HM O) [id number] ALLSTATE INS CO NO FAULT [id number] SP [id number] [place] [id number] [place] [id number] ANSI-Health Maintenance Organization (HM O) [id number] ANSI-Medicare Part B [id number] ANSI-Medicare Part B [id number] ANS-Health Maintenance Organization ( O) [id number] ANSI-Medicare Part B [id number] ANS-Health Maintenance Organization ( O) [id number] ANSI-Health Maintenance Organization ( O) [id number] ANSI-Medicare Part B t6er2ud1-015p-8f2v-096s-1q1035f93432 r9ga9qq1-761g-4f9x-258e-0i8479x90106 [facility] Maintenance Organization ( O) 3751gtz8-8715-1ht3-zg33-50c29j227336 7966yjh0-7195-9do7-xw75-27b70g467156 ANSI-Medicare Part B [id number]-1qmf-3814-4y81-[id number] [facility] Maintenance Organization ( O) pw169qjf-81y6-3rsn-x686-6549lz469039 cu576ktq-72g6-6qwt-w793-2386os446172 ANSI-Medicare Part B [id number] Medicare [place] Medicare Primary [id number] Self [id number] ANSI-Health Maintenance Organization ( O) [id number]-wg8x-174c-1jr9-wfc07767a877 023c8003-mb7r-186v-3vz2-aii51048d845 ANSI-Medicare Part B [id number] 0t0e1b44-942l-6553-ll32-94s2717i65e9 Todays Options Medigap Part B [id number] Self [id number] Medicare [place] Medicare Primary [id number] Self [id number] ANSI-Medicare Part B [id number]-[id number] ANSI-Health Maintenance Organization ( O) ia6z6883-6w73-3v2u-0zqm-374gg07w22w5 xd0h6188-8z82-9z7k-7ohv-152nz24i74j3 [employer] Options Medigap Part B [id number] Self [id number] Medicare [place] Medicare Primary [id number] Self [id number] ANSI-Medicare Part B [id number] ANSI-Health Maintenance Organization ( O) 7n95hd59-jz30-2337-255u-77bmo5046m42 6h35cy00-yf87-8399-368j-52ptp6259y27 ANSI-Medicare Part B [id number]-s196-8x4r-q74d-[id number] AN[facility] Maintenance Organization ( O) 134tah68-2y02-133e-l2h8-7vl940r0589r 520fxl02-9d52-837p-p5f7-0qy514z7949m ANSI-Health Maintenance Organization ( O) 68t3c3o0-ac12-7703-w08b-0782z95162z9 33l4j6z7-tm51-0754-r11d-4708d18400d7 ANSI-Medicare Part B [id number]-[id number]-080e-08a3-o516-z87n8026dptn ANSI-Health Maintenance Organization ( O) 7x31c611-570j-70q6-k944-9u33xg3b575q 2q37n014-640q-63j6-f009-4h62oo2p954o ANSI-Medicare Part B [id number]-5052-[id number] 7l6l31hk-899j-735a-9596-rrg89u285u4s AN[facility]-Health Maintenance Organization ( O) x399962c-r9a4-1929-iemx-9032738f7p14 f786823x-e9h2-2627-ezlo-6645816z0v79 ANSI-Medicare Part B [id number] [id number]-8125-0981-kecm5vs17nt9 ANSI-Medicare Part B [id number]-[id number] jfjuk2ht-a922-532l-9930-0ql715e85mii ANSI-Health Maintenance Organization ( O) kf03o022-mp4w-6555-48t2-nup96p4pa60k zx40n703-dm6r-7981-06f7-rnw04q3uw31g ANSI-Medicare Part B [id number]-[id number] 57v9tcs2-m235-6v01-5725-6zwy4l860b73 [facility] ( [facility]) g94n6c4d-d181-6xy5-p832-98nz1gs815xy d21q0w7b-i299-4bu8-m693-57jz2nf472ip ANSI-Medicare Part B [id number]-[id number] r52jqbtf-hc27-4004-85wn-74r69u130931 ANS-Health Maintenance Organization ( O) 2374013q-u75y-0973-qnhb-844663391522 2138451i-y99v-7673-kkzp-606081767173 ANSI-Health Maintenance Organization ( O) 19035081-7355-00db-47m0-nm28rkze3az6 92944583-1627-24tz-37d8-nx11txuf2oa1 ANSI-Medicare Part B [id number]-[id number]-[id number] 02789b62-cuhy-8026-5h0c-5670bhv0r5s1 ANSI-Medicare Part B [id number]-o3zl-2z72s413m227 ruh008m5-94q1-44gu-n6uk-4s66l617v471 [facility]-Health Maintenance Organization ( O) 33598d1s-zyzw-102r-3ex7-146r2zv7a8a4 25305e3s-squy-197d-8cm9-553x6pj7d3p8 [facility]-Health Maintenance Organization ( O) as08332x-0344-4621-5j7p-b54c59190c4o hw69783n-2410-3403-9a5c-h69q37045e1y ANSI-Medicare Part B w97yyn7n-i153-95kf-s3z6-23u7ilz7p157 f90rkr2x-k205-95dj-n5y3-60u6mjt4z165 [facility]-Health Maintenance Organization ( O) 8tq755or-4k4l-868i-9650-1q0a1x038lwu 6wl065pa-8f9h-348m-0024-5u5k8a812tov ANSI-Medicare Part B [id number]-[id number] 08e26349-uia3-2574-ip19-30l0hl255151 [facility]-Health Maintenance Organization ( O) 4xl48p2n-128h-8vz7-9jw1-139j2269g663 5gm42z5n-378w-9bk5-4lq3-599b9603d453 ANSI-Medicare Part B [id number]-2158-3279-xs98-[id number] 0yp4196m-5543-3311-hp55-me1408759u20 ANSI-Medicare Part B [id number]-272i-mzdc-9z28998325zf 7w1v6558-137v-708v-krwq-8j41129900tk ANSI-Health Maintenance Organization ( O) 3n8o3067-81pj-5l53-s221-e1218o42w9uw 3i5m1393-33ni-1b18-z782-x3004m80r6of ANSI-Medicare Part B 9cy16o9u-4802-7e8f-s14b-6aqx443x9axy 0qo10y7r-8476-0s8y-e73r-6tbl854m9hmj ANSI-Health Maintenance Organization ( O) vt2lcz4h-3m5a-6181-08m4-f764h9496m83 be4kzg6p-4r1b-9503-40c8-r007k1046r24 [facility] Maintenance Organization ( O) 7qce3yst-pctm-58r7-63c4-6zqp4ir7054u 4yja6snn-zktz-60p5-78s8-0pyr2pm5984f ANSI-Medicare Part B ne15ji3i-x391-5186-h368-9698v94p4f0p ya16ot8f-h533-6852-r427-8912q36h7a4a AN[facility]-Health Maintenance Organization ( O) ry0m626p-5072-343a-pi3x-5o29k1840h13 vj7z872j-2013-818q-xr9m-5e79x0275h04 AN[facility] Maintenance Organization ( O) 72y9xv91-760e-8d6p-dy84-4279wcya80r0 05g9fq42-522q-2l9g-in95-9706qrky45p6 AN[facility]-Health Maintenance Organization ( O) 63m5707r-04j9-7j91-k204-et180mim1667 63k4738g-17w0-7j65-r378-da601thm9614 AN[facility] Maintenance Organization ( O) 8d2l1q29-jc59-2r9f-v7c4-w4wg7kq69q1r 3y7g4x07-sl66-7n3d-c3w4-u6cm6fs86d0r AN[facility] Maintenance Organization ( O) 4q76c6ya-v27d-71zr-b5m7-8gv0970e607y 1p52t7os-w43g-78jc-o2y6-6xy2297d413c ANSI-Health Maintenance Organization ( O) f2662ihw-3463-515s-56pv-cm5gf435z306 p3527xpq-2937-618v-12jw-mu8tr246y838 Medicare Natl Gov't Servi Medicare Primary [id number] Self [id number] AN[facility] Maintenance Organization ( O) 05r9j574-51if-1i5t-w8t8-4m08d0f65180 17h9g916-13zc-7g9q-m2v2-8p51m5m10640 AN[facility]-Health Maintenance Organization ( O) 35045i45-35ba-0l36-9sje-e86q3h573yjx 77696t08-87gq-9z59-7uzb-w95e5t186xes ANSI-Health Maintenance Organization ( O) 623uxk77-3197-1o8w-8906-u2861kj2p557 163dxz69-2835-5o1n-8871-r9223bh8r346 MEDICARE [id number] SP [id number] A ANSI-Health Maintenance Organization ( O) s934d2v8-jh54-6k70-9116-124677q19022 e255j1y9-lt72-9p28-9974-570284u59173 ANSI-Health Maintenance Organization ( O) nix3p3j2-54f3-1v8j-ws12-2932408571sp ahm4k9m3-41m7-5m2d-zc82-6583412510xs ANSI-Health Maintenance Organization ( O) 24179078-1u2x-8451-64b9-729u30148756 77923866-2h0x-0745-71c4-277q81624548 ANSI-Health Maintenance Organization ( O) w15q4smt-7rha-174z-oc71-384r71nqt7u0 o44r7vvj-4txy-919r-wm69-022h27feo6s6 ANSI-Health Maintenance Organization ( O) xallvt4q-78n2-9368-2278-t28505a65799 kwutfj0a-39s0-8131-3598-g61654i38134 ANSI-Health Maintenance Organization ( O) 4k2a775t-3d75-37t5-27m5-ond1w1732w68 9k2f424j-8d07-37p8-96y6-csh2c2759t61 ANSI-Health Maintenance Organization ( O) 04861v25-9lk3-7c98-t527-tttjd957ir73 88434x31-9al9-5w36-v002-rjmdt327ya25 [facility] O [id number] S [id number] ANSI-Health Maintenance Organization ( O) 693f09cv-6aa7-21g8-zd92-4s2ui1kv169n 304n18hs-2rd6-27a5-zt74-0f0vl5lp692h ANSI-Health Maintenance Organization ( O) d3n2ko08-6qj8-62ga-7vi7-974p52958n96 q2t4na23-3ii9-24le-2hj8-861l16216b31 AN[facility] Maintenance Organization ( O) 9u3295d7-600u-09oe-c1j2-10317956md49 1u1317p0-961e-93ml-x3u3-27626319aj78 ANSI-Health Maintenance Organization ( O) 15s54z19-856c-1f0r-k7m8-55020610b904 71n36p48-803v-6y2m-z3h7-80238318t485 ANS-Health Maintenance Organization ( O) 3y2jlqet-4912-793j-5163-d7p47g660ey0 4b0nhrsz-0269-425o-6189-s6z03h521ru9 ANSI-Medicare Part B xm032v23-7u29-5z3b-mu6b-0814lao987mj nm594s98-7v71-3y9b-nu3f-3292ppu844eu ANSI-Medicare Part B 43k9e0b1-3337-5jc8-n264-135g1e4d2405 15h5w7j6-5343-1if2-c066-187y6o4s6924 ANSI-Medicare Part B q082z57l-dp0s-2e98-1a46-0k9f5j09b799 m643e74f-qz1l-5l18-2q95-5i2o7z18w380 ANSI-Medicare Part B x6ta3x40-3i17-35bd-p049-2i66m55x4535 c3vn9x58-9q27-26sn-u302-7o73h62f6671 ANSI-Medicare Part B j8ml53o9-fo77-44v9-y193-410pr5226433 l1mi82p0-bw65-23r2-d479-973op8933318 ANSI-Medicare Part B 8bz046pb-3f5e-468z-id69-889ud09m5bk9 4ws044wu-1c2c-052x-zy66-007yy65q1jw5 MEDICARE [id number] ANSI-Medicare Part B 3610764m-g059-00p9-t29o-110ge2128zz1 4190673l-d512-82v0-f89a-353zd4959tk5 ANSI-Medicare Part B 8d5r0l8g-wb02-7629-p979-96io5r6g3105 8x8n5b1h-kn90-9096-k106-10vx7f9a2228 ANSI-Medicare Part B 89418h08-lp63-76ti-7180-5zz9ytg4785o 74877c31-am63-92zb-9765-1pw8rgz0912o ANSI-Medicare Part B 4w81z590-o2b5-2ncw-2017-m2yb5m995055 2n03i099-a0l3-1tsd-6185-q7fh0a889464 ANSI-Medicare Part B i0uj0mk9-765r-4700-dii9-r824g30kj10c i9jg1ev2-010t-0843-tgx1-k172v46we18a ANSI-Medicare Part B 4b3b052j-o6lm-63b0-btji-4x0042z430g6 0f9l351o-p3ic-70q7-wxjh-7q7437f186v9 AMER PROG TODAYS OPTIONS G [id number] Self [id number] EXCELLUS MEDICARE BLUE PPO G [id number] Self [id number] ALLSTATE E [id number] Self [id number] ANSI-Medicare Part B 8ymf5f3m-787y-7l82-c69i-41262u45gz8j 7yjk7j7t-991v-9i51-p69f-41149c95xh6g ANSI-Medicare Part B 07h7583u-5zs9-6902-wb13-v272868kh9j5 06h2243c-5jo2-1179-tx32-a716671yw5y5 ANSI-Medicare Part B cu5sc648-127q-4qm3-5d00-6u73ko74xqh1 oe2ws107-892k-5tg4-5k33-0z13fv65gnr2 ANSI-Medicare Part B 99x3c048-9a06-59x6-63o0-8qb3w0wu81p8 82e8q902-8b25-40u3-96i6-8ro4w6si97b2 ANSI-Medicare Part B 1e19j415-4iy5-9780-vv2z-5o4a58833122 4r72s420-9av0-9773-yq7q-3c8r83213500 ANSI-Medicare Part B 0o5n1554-047u-2480-p681-45xc8328u576 2b6t8460-347q-4903-y263-36dh9303r403 ANSI-Medicare Part B ve28kr46-0g58-7m62-8s99-u141a667nx55 zs59tp96-9t45-2d09-5u07-l087h131lk23 ANSI-Medicare Part B r169891t-310k-5br3-fs2i-bp11bd7v9zig r210883o-771n-1hi2-rr2e-ki96hp8x5mbq ANSI-Medicare Part B k6768e61-y3r5-7g3t-4230-f9e7211v9n79 j7131r60-d8w6-0d1g-9361-e1w2016w5c33 ANSI-Medicare Part B 1339ks7i-2m63-7716-sb58-236uu96714i4 5566qd5e-2k21-6784-oi97-265vz67892q3 ANSI-Medicare Part B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 Supporting Document(s) CBC W/AUTOMATED DIFF [facility] COMPLETE BLOOD COUNT Leukocytes [#/volume] in Blood by Automated count 4.4 10^3/uL 4.2 - 1 1.0 [facility] Erythrocytes [#/volume] in Blood by Automated count 3.82 10^6/uL 4. 50 - 6.30 L [facility] Hemoglobin [Mass/volume] in Blood 10.2 g/dL 14.0 - 16.0 L [facility] Hematocrit [Volume Fraction] of Blood by Automated count 32.5 % 4 1.0 - 51.0 L [facility] Erythrocyte mean corpuscular volume [Entitic volume] by Auto mated count 85.1 fL 80.0 - 94.0 [facility] Erythrocyte mean corpuscular hemoglobin [Entitic mass] by Automated count 26.7 pg 27.0 - 34.0 L [facility] Erythrocyte mean corpuscular hemoglobin concentration [Mass/volume] by Automated count 31.4 g/dL 31.0 - 36.0 [facility] Erythrocyte distribution width [Ratio] by Automated count 17.1 % 11.5 - 14.8 H [facility] Platelets [#/volume] in Blood by Automated count 267 10^3/uL 150 - 45 0 [facility] Platelet mean volume [Entitic volume] in Blood by Automated count 10.3 fL 7.4 - 10.4 [facility] Neutrophils/100 leukocytes in Blood by Automated count 53.9 % 37. 0 - 80.0 [facility] Lymphocytes/100 leukocytes in Blood by Manual count 22.8 % 25.0 - 40.0 L [facility] Monocytes/100 leukocytes in Blood by Automated count 15.5 % 3.0 - 8.0 H [facility] Eosinophils/100 leukocytes in Blood by Automated count 6.6 % 0.0 - 7.0 [facility] Basophils/100 leukocytes in Blood by Automated count 0.7 % 0.0 - 2.0 [facility] %IG 0.5 % 0.0 - 0.0 H [facility] %NRBC 0.0 % 0.0 - 0.0 [facility] al Neutrophils [#/volume] in Blood by Automated count 2.37 10^3/uL 2.00 - 6.90 [facility] Lymphocytes [#/volume] in Blood by Automated count 1.00 10^3/uL 0.60 - 3.40 [facility] Monocytes [#/volume] in Blood by Automated count 0.68 10^3/uL 0.00 - 0.90 [facility] Eosinophils [#/volume] in Blood by Automated count 0.29 10^3/uL 0.00 - 0.70 [facility] Basophils [#/volume] in Blood by Automated count 0.03 10^3/uL 0.00 - 0.20 [facility] #IG 0.02 10^3/uL 0.00 - 0.10 [facility] #NRBC 0.00 10^3/uL 0.00 - 0.00 [facility] MANUAL DIFF NOT INDICATED [facility] RBC MORPH NOT INDICATED [facility] ID Date Data Source [id number] 06/20/2020 02:23:00 PM EST [facility] [address] [place] [address] PHONE: [phone] FAX: [phone] Name .................. : MCRAEFLY Armenta Acct Number.................. : [id number] ROOM. ................. : 102-1 Number ................... : [id number] Stay type ............. : O/P Discharge Date......... ... : Admit Date ......... : 06/19/20 Admit Phys .................... : ALYSON OLSEN Date of ....... : 1940 Family Phys ................... : DINO Phone .................. : [phone] Age ................................ : 79 Film# .................. .:[id number] Sex ................................. : M Unsigned transcriptions are preliminary reports and do not represent a medical or legal document CAROTID [id number] COMPLETE:06/19/20 20:17 ADB 01518 (REASON FOR PROCEDURE :SYNCOPE CAROTID DOPPLER ULTRASOUND: INDICATION: Syncope. FINDINGS: The peak systolic velocity in the right common carotid artery is 197 cm/s. The peak systolic velocity in the right internal carotid artery is 67.6 cm/s. The right ratio is 0.34. The peak systolic velocity in the left common carotid artery is 170 cm/s. The peak systolic velocity in the left internal carotid artery is 84 cm/s. The left ratio is 0.5. There is antegrade flow in the bilateral vertebral arteries. Stark scale imaging demonstrate minimal plaque in the bilateral carotid bulbs. IMPRESSION: Quite limited examination. There is less than 50% stenosis in the bilateral internal carotid arteries according to sonographic NASCET criteria. NASCET was utilized while determining the amount of stenosis on the ultrasound of the carotids. Electronically Reviewed and Signed By Devin Hatfield M.D. , 06/20/20 14:23, LAY Transcribe Initials: RESHMA , Transcribe Date: 06/20/20 00:40, Dictation Date: Copy for: [facility] via [employer] Copy for: EMERGENCY DEPT via modem Copy for: 710 MED REC Page 1 of 1 Name Value Range Interpretation Code Description Data Ynes rce(s) Supporting Document(s) ID Date Data Source [id number] 06/20/2020 01:57:00 PM [facility] [address] [place] [address] PHONE: [phone] FAX: [phone] Name .................. : USHA Armenta Acct Number.................. : [id number] ROOM. ................. : 102-1 MR Number ................... : [id number] Stay type ............. : O/P Discharge Date......... ... : Admit Date ......... : 06/19/20 Admit Phys .................... : ALYSON MAT Date of ....... : 1940 Family Phys ................... : [place] Phone .................. : [phone] Age ................................ : 79 Film# .................. .:[id number] Sex ................................. : M Unsigned transcriptions are preliminary reports and do not represent a medical or legal document CT LUMBAR SP W/O CONT [id number] COMPLETE:06/19/20 12:30 LUPE [id number] Reason(s): syncope, fall, back pain CT OF THE LUMBAR SPINE WITHOUT CONTRAST: FINDINGS: Bilateral L5 pars defects are noted which resulted in grade 1 anterolisthesis at L5-S1. Fracture, destructive osseous lesion or dislocation is not seen. Mild degenerative changes are noted at vertebral body endplates and facet articulations. Disc bulging noted at L2-3, L3-4 and L4-5 that resulted in moderate lateral recess narrowing and mild central canal stenosis. Anterolisthesis at L5-S1 that resulted in moderate lateral recess narrowing and moderate neuroforaminal narrowing without central canal stenosis. The paraspinal soft tissues are unremarkable. The aorta is normal in caliber. IMPRESSION: Degenerative spondylosis. Spondylosis and disc bulging at L2-3, L3-4 and L4-5 with moderate lateral recess narrowing and mild central canal stenosis. Anterolisthesis at L5-S1 resulting in lateral recess narrowing and neuroforaminal narrowing without central canal stenosis. While performing the above CT examination, radiation dose reduction was a ccomplished utilizing automated exposure control, adjusting of the mA and kV based on the patient's body size and/or the use of imperative reconstructive techniques. CT dose: 634.5 mGycm Electronically Reviewed and Signed By Joann Rg MD , 06/20/20 13:57, KGG Transcribe Initials: DZ , Transcribe Date: 06/20/20 01:36, Dictation Date: Page 1 of 2 [place] [address] PHONE: [phone] FAX: [phone] Name .................. : USHA Armenta Acct Number.................. : [id number] ROOM. ................. : 102-1 MR Number ................... : [id number] Stay type ............. : O/P Discharge Date......... ... : Admit Date ......... : 06/19/20 Admit Phys .................... : ALYSON OLSEN Date of ....... : 1940 Family Phys ................... : DINO Phone .................. : Age ................................ : 79 Film# .................. .:[id number] Sex ................................. : M Unsigned transcriptions are preliminary reports and do not represent a medical or legal document CT LUMBAR SP W/O CONT [id number] COMPLETE:06/19/20 12:30 LUPE [id number] Reason(s): syncope, fall, back pain Copy for: EMERGENCY DEPT via modem Copy for: 710 MED REC Page 2 of 2 Name Value Range Interpretation Code Description Data Ynes rce(s) Supporting Document(s) ID Date Data Source [id number] 06/20/2020 01:56:00 PM [place] [id number] [place] [address] PHONE: [phone] FAX: [phone] Name .................. : MCRAE LIN Geovany Acct Number.................. : [id number] ROOM. ................. : 102-1 Number ................... : [id number] Stay type ............. : O/P Discharge Date......... ... : Admit Date ......... : 06/19/20 Admit Phys .................... : ALYSON OLSEN Date of ....... : 1940 Family Phys ................... : [place] Phone .................. : /[phone] Age ................................ : 79 Film# .................. .:[id number] Sex ................................. : M Unsigned transcriptions are preliminary reports and do not represent a medical or legal document CT CERV SPINE W/O CONTRAS [id number] COMPLETE:06/19/20 12:30 LUPE 27418 Reason(s): Pain CT SCAN OF THE CERVICAL SPINE WITHOUT CONTRAST: COMPARISON: None. FINDINGS: The patient is status post surgical fusion of C2 to C6. Fracture, destructive osseous lesion or dislocation is not seen. Degenerative spondylosis is present. Grade 1 anterolisthesis is seen at C6-7 and C7-T1 due to degenerative spondylosis. Disc protrusion or central canal stenosis is not identified. Facet articulations are intact. IMPRESSION: Degenerative spondylosis. Status post cervical fusion C2 to C6. Grade 1 anterolisthesis at C6-7 and C7-T1 that is due to degenerative spondylosis. While performing the above CT examination, radia tion dose reduction was accomplished utilizing automated exposure control, adjusting of the mA and kV based on the patient's body size and/or the use of imperative reconstructive techniques. CT dose: 182.0 mGycm Electronically Reviewed and Signed By Joann Rg MD , 06/20/20 13:56, KGG Transcribe Initials: RESHMA , Transcribe Date: 06/20/20 01:33, Dictation Date: Copy for: EMERGENCY DEPT via modem Copy for: 710 MED REC Page 1 of 1 Name Value Range Interpretation Code Description Data Ynes rce(s) Supporting Document(s) ID Date Data Source [id number] 06/20/2020 01:56:00 PM EST [facility] [address] [place] [address] PHONE: [phone] FAX: [phone] Name .................. : [facility] : [id number] ROOM. ................. : 102-1 MR Number ................... : [id number] Stay type ............. : O/P Discharge Date......... ... : Admit Date ......... : 06/19/20 Admit Phys .................... : ALYSON RAÚL Date of ....... : 1940 Family Phys ................... : [place] Phone .................. : [phone] Age ................................ : 79 Film# .................. .:[id number] Sex ................................. : M Unsigned transcriptions are preliminary reports and do not represent a medical or legal document CT HEAD W/O CONTRAST [id number] COMPLETE:06/19/20 12:30 LUPE 64162 Reason(s): Syncope CT OF THE HEAD WITHOUT CONTRAST: FINDINGS: Atrophy and chronic microvascular ischemic changes are noted. Encephalomalacia is seen in the left occipital lobe. Acute ischemic event, intracranial hemorrhage, space- occupying mass, mass effect or midline shift is not seen. The skull is intact. The sinuses, orbits and mastoid air cells are unremarkable. IMPRESSION: No acute pathology. No significant change from comparison examination of 04/11/20. Encephalomalacia left occipital lobe. Atrophy and chronic microvascular changes in the cerebral white matter. While performing the above CT examination, radiation dose reduction was accomplished utilizing automated exposure control, adjusting of the mA and kV based on the patient's body size and/or the use of imperative reconstructive techniques. CT dose: 862.3 mGycm Electronically Reviewed and Signed By Joann Rg MD , 06/20/20 13:56, KGG Transcribe Initials: DZ , Transcribe Date: 06/20/20 01:31, Dictation Date: Copy for: EMERGENCY DEPT via modem Copy for: 710 MED REC Page 1 of 1 Name Value Range Interpretation Code Description Data Ynes rce(s) Supporting Document(s) ID Date Data Source [id number] 06/20/2020 01:56:00 PM EST [facility] [address] [place] [address] PHONE: [phone] FAX: [phone] Name .................. : USHA Armenta Acct Number.................. : [id number] ROOM. ................. : 102-1 MR Number ................... : [id number] Stay type ............. : O/P Discharge Date......... ... : Admit Date ......... : 06/19/20 Admit Phys .................... : ALYSON OLSEN Date of ....... : 1940 Family Phys ................... : DINO Phone .................. : [phone] Age ................................ : 79 Film# .................. .:[id number] Sex ................................. : M Unsigned transcriptions are preliminary reports and do not represent a medical or legal document CHEST PORTABLE [id number] COMPLETE:06/19/20 11:27 86890 Reason(s): syncope PORTABLE CHEST X-RAY: FINDINGS: The cardiac and mediastinal silhouettes appear normal and the lungs are clear. The bones and soft tissues are normal. The upper abdomen is unremarkable. IMPRESSION: No acute disease identifiable. Electronically Reviewed and Signed By Joann Rg MD , 06/20/20 13:56, KGHamzah Transcribe Initials: DZ , Transcribe Date: 06/20/20 01:30, Dictation Date: Copy for: EMERGENCY DEPT via modem Copy for: [address] [place] [address] REC Page 1 of 1 Name Value Range Interpretation Code Description Data Ynes rce(s) Supporting Document(s) ID Date Data Source [id number] 06/20/2020 11:29:00 AM [facility] Name Value Range Interpretation Code Description Data Ynes rce(s) Supporting Document(s) TROPONIN T <0.01 NG/ML 0.00 - 0.10 [facility] ospital TROPONIN T0.1 ng/ml Recommended as the c linical threshold value forTroponin T. ID Date Data Source [id number] 06/20/2020 07:25:00 AM [facility] Name Value Range Interpretation Code Description Data Ynes rce(s) Supporting Document(s) COMPREHENSIVE METABOLIC PANEL [facility] COMPREHENSIVE METABOLIC PANEL Sodium [Moles/volume] in Serum or Plasma 144 mEq/L 134 - 153 [facility] Potassium [Moles/volume] in Serum or Plasma 3.9 mEq/L 3.6 - 5.0 [facility] Chloride [Moles/volume] in Serum or Plasma 109 mEq/L 98 - 107 H [facility] Carbon dioxide, total [Moles/volume] in Serum or Plasma 28 MEQ/L 22 - 30 [facility] Glucose [Mass/volume] in Serum or Plasma 83 MG/DL 65 - 110 [facility] BUN 15 MG/DL 7 - 21 [facility] Creatinine [Mass/volume] in Serum or Plasma 1.2 MG/DL 0.7 - 1.5 [facility] BUN/CREAT 13 8 - 27 [facility] Protein [Mass/volume] in Serum or Plasma 5.6 G/DL 6.3 - 8.2 L [facility] Albumin [Mass/volume] in Serum or Plasma 4.1 G/DL 3.9 - 5.0 [facility] Globulin [Mass/volume] in Serum by calculation 1.5 GM/DL 2.4 - 3.2 L [facility] A/G RATIO 2.7 0.8 - 2.0 H [facility] Calcium [Mass/volume] in Serum or Plasma 8.7 MG/DL 8.4 - 10.2 [facility] Bilirubin.total [Mass/volume] in Serum or Plasma <0.7 MG/DL 0.2 - 1.3 [facility] Alkaline phosphatase [Enzymatic activity/volume] in Serum or Plasma 173 U/L 38 - 126 H [facility] Aspartate aminotransferase [Enzymatic activity/volume] in Serum or Plasma 22 U/L 5 - 40 [facility] Alanine aminotransferase [Enzymatic activity/volume] in Seru m or Plasma 12 U/L 7 - 56 [facility] Anion gap 3 in Serum or Plasma 7.0 mmol/L 8.0 - 16.0 L [facility] AGE 79 yrs [facility] NON-AA GFR >60 mL/min [facility] ital AFR AMER GFR >60 mL/min [facility] Ho spital Male GFR In terprentation 20-49 yrs >60 mL/min Normal 50-59 yrs >56 mL/min Normal 60-69 yrs >49 mL/min Normal 70-79yrs >42 mL/min Normal 80 and above >35 mL/min Normal Female GFR Interpretation 20-39 yrs >60 mL/min Normal 40-49 yrs >58 mL/min Normal 50-59 yrs >51 mL/min Normal 60-69 yrs >45 mL/min Normal 70-79 yrs >39 mL/min Normal 80 and above >32 mL/min Normal ID Date Data Source [id number] 06/20/2020 07:07:00 AM EST [facility] Name Value Range Interpretation Code Description Data Ynes rce(s) Supporting Document(s) CBC W/AUTOMATED DIFF [facility] COMPLETE BLOOD COUNT Leukocytes [#/volume] in Blood by Automated count 3.4 10^3/uL 4.2 - 1 1.0 L [facility] Erythrocytes [#/volume] in Blood by Automated count 3.68 10^6/uL 4. 50 - 6.30 L [facility] Hemoglobin [Mass/volume] in Blood 9.9 g/dL 14.0 - 16.0 L [facility] Hematocrit [Volume Fraction] of Blood by Automated count 31.3 % 4 1.0 - 51.0 L [facility] Erythrocyte mean corpuscular volume [Entitic volume] by Auto mated count 85.1 fL 80.0 - 94.0 [facility] Erythrocyte mean corpuscular hemoglobin [Entitic mass] by Automated count 26.9 pg 27.0 - 34.0 L [facility] Erythrocyte mean corpuscular hemoglobin concentration [Mass/volume] by Automated count 31.6 g/dL 31.0 - 36.0 [facility] Erythrocyte distribution width [Ratio] by Automated count 17.1 % 11.5 - 14.8 H [facility] Platelets [#/volume] in Blood by Automated count 241 10^3/uL 150 - 45 0 [facility] Platelet mean volume [Entitic volume] in Blood by Automated count 10.8 fL 7.4 - 10.4 H [facility] Neutrophils/100 leukocytes in Blood by Automated count 50.9 % 37. 0 - 80.0 [facility] Lymphocytes/100 leukocytes in Blood by Manual count 25.9 % 25.0 - 40.0 [facility] Monocytes/100 leukocytes in Blood by Automated count 13.8 % 3.0 - 8.0 H [facility] Eosinophils/100 leukocytes in Blood by Automated count 7.6 % 0.0 - 7.0 H [facility] Basophils/100 leukocytes in Blood by Automated count 0.9 % 0.0 - 2.0 [facility] %IG 0.9 % 0.0 - 0.0 [facility] %NRBC 0.0 % 0.0 - 0.0 [facility] al Neutrophils [#/volume] in Blood by Automated count 1.73 10^3/uL 2.00 - 6.90 L [facility] Lymphocytes [#/volume] in Blood by Automated count 0.88 10^3/uL 0.60 - 3.40 [facility] Monocytes [#/volume] in Blood by Automated count 0.47 10^3/uL 0.00 - 0.90 [facility] Eosinophils [#/volume] in Blood by Automated count 0.26 10^3/uL 0.00 - 0.70 [facility] Basophils [#/volume] in Blood by Automated count 0.03 10^3/uL 0.00 - 0.20 [facility] #IG 0.03 10^3/uL 0.00 - 0.10 [facility] H ospital #NRBC 0.00 10^3/uL 0.00 - 0.00 [facility] ospital MANUAL DIFF NOT INDICATED [facility] RBC MORPH NOT INDICATED [facility] sp[facility] ID Date Data Source [id number] 06/20/2020 04:51:00 AM EST [facility] Name Value Range Interpretation Code Description Data Ynes rce(s) Supporting Document(s) URINALYSIS [facility] vanessa URINALYSIS SOURCE R [facility] al COLOR yellow NORMAL: Yellow [facility] ospital CLARITY clear NORMAL: Clear [facility] Ho spital Specific gravity of Urine by Test strip 1.015 1.001 - 1.030 [facility] pH 6 5 - 9 [facility] al Glucose [Mass/volume] in Urine by Test strip NORM NORMAL: Negat [facility] Bilirubin.total [Presence] in Urine by Test strip NEG NORMAL: Negative [facility] Ketones [Presence] in Urine by Test strip NEG NORMAL: Negative [facility] Protein [Mass/volume] in Urine by Test strip 15 NORMAL: Negat [facility] Nitrite [Presence] in Urine by Test strip NEG NORMAL: Negative [facility] BLOOD NEG NORMAL: Negative [facility] Leukocyte esterase [Presence] in Urine by Test strip NEG GINA L: Negative [facility] Urobilinogen [Mass/volume] in Urine by Test strip NOR less reji n 1.0 mg/dL [facility] MICROSCOPIC See Below [facility] ital Erythrocytes [#/volume] in Urine by Test strip 0 - 1 NORMAL: NON E SEEN [facility] EPITHELIAL FEW NORMAL: NONE SEEN [facility] Amorphous sediment [Presence] in Urine sediment by Light ray roscopy RARE NORMAL: NONE SEEN [facility] ID Date Data Source [id number] 06/19/2020 08:02:00 [place] [address] RESPIRATORY CARE REPORT ==== ---------NAME------- NUMBER SEX AGE ADMIT DISC. XRAY# F/C VONDA LIN Armenta [id number] M 79 06/19/[id number] MB4 O/P DATE OF : 1940 M/R# [id number] PH#: [id number] 102-1 LOCATION: EMERGENCY DEPT EKG [id number] COMP LETE:06/19/20 13:26 RV [id number] PHYSICIAN: ALYSON FAUST Name Value Range Interpretation Code Description Data Ynes rce(s) Supporting Document(s) ID Date Data Source [id number] 06/19/2020 10:58:00 AM EST [facility] 1 OrderSheet [facility] Emergency Department [address] [place] [address] Phone #: ext- [phone] 06/19/2020 10:53 Patient: LIN MCRAE [facility]#: [id number] Sex: M : 1940 Age: 79yWEIGHT:83.9 kg (S) HEIGHT:65 inches (S) BMI:30.8ALLERGIES: CiclopiroxCHIEF COMPLAINT: syncope, [id number]: Syncope, BackacheLAB ORDERSOrder Description Priority Entered Acknowledged InitialedCBC w Diff STAT 11:06/19/2020 11:32 Charlotte Thompson Riccardo R.N. M.D.;CMP STAT 11:06/19/2020 11:32 Charlotte Thompson Riccardo R.N. M.D.;Lipase STAT 11:06/19/2020 11:32 Charlotte Thompson Riccardo R.N. M.D.;PT/PTT STAT 11:06/19/2020 11:32 Charlotte Thompson Riccardo R.N. M.D.;Troponin-T STAT 11:06/19/2020 11:32 Charlotte Thompson Riccardo R.N. M.D.;BNP STAT 11:28 06/19/2020 11:32 Charlotte Thompson Riccardo R.N. M.D.;DIAGNOSTIC STUDY ORDERSOrder Description Priority Entered [facility]ged [facility] 1 STAT 11:06/19/2020 11:41 Gee,View Justin Perez(Oxygen?(No)) Gentry; Reason for Study: syncopeCT Head W/O Cont STAT 11:27 06/19/2020 11:44 Gee(Oxygen?(No)) Justin Perez M.D.; Reason for Study: SyncopeCT Spine Cervical STAT 11:06/19/2020 11:44 Gee,W/O Cont Justin Perez 2 OrderSheet [facility] Emergency Department [address] [place] [address] Phone #: ext- [phone] 06/19/2020 10:53 Patient: LIN MCRAE [facility]#: [id number] Sex: M : 1940 Age: 79y(Oxygen?(No)) M.D.; Reason for Study: Pain, Trauma/InjuryCT LUMBAR SP STAT 11:27 06/19/2020 11:44 Gee,W/O CONT Turrin, Justin Yanci(Oxygen?(No)) Gentry;(IV?(Yes)) Reason for Study: syncope, fall, back painMEDICATION/IV/DRIP/FLUID ORDERSOrder Description Priority Entered Acknowledged InitialedNS IV 500 mL 11:28 06/19/2020 Ack'd: 11:51 11:52 Gee,Bolus: : Bolus 500 Turrin, Justin Gee, Yanci BlakenmL, then 150 mL/hr M.DKimberly;(X1)Ofirmev IV 1000 mg 12:31 06/19/2020 12:35 Gee(NOW x1, Infuse Turrin, Justin Katelynover 15 minutes) Gentry;Morphine IVP 4 mg 14:24 06/19/2020 14:27 Gee(HIGH ALERT Turrin, Justin KatelynMEDICATION) Gentry;GENERAL ORDERSOrder Description Priority Entered Acknowledged InitialedBlood Pressure 11:27 06/19/2020 11:32 Maicol Thompson Riccardo R.N. MGege;Stripe Matcher 11:27 06/19/2020 11:32 Charlotte Thompson(continuous) Justin Perez.N. M.Arash;EKG 11:27 06/19/2020 11:32 Charlotte Thompson Riccardo R.N. MGege;NPO 11:27 06/19/2020 11:32 Charlotte Thompson Riccardo R.N. M.Arash;Obtain Old EKG 11:27 06/19/2020 11:32 Charlotte Thompson Riccardo R.N. MGege;Oxygen titrate to 11:27 06/19/2020 11:32 Charlotte Thompson92% Justin Perez R.N., M.D.;Pulse oximeter 11:27 06/19/2020 11:32 Charlotte Thompson(Continuous) Justin Perez R.N. 3 OrderSheet [facility] Emergency Department [address] [place] [address] Phone #: [phone]- [phone] 06/19/2020 10:53 Patient: LIN MCRAE Sex: M : 1940 Age: 79y M.D.;Saline Lock 11:27 06/19/2020 11:32 Charlotte Thompson Riccardo R.N. M.D.;Vitals 11:27 06/19/2020 11:32 Charlotte Thompson Riccardo R.N. M.D.;Consult - 13:17 06/19/2020 13:55 Charlotte ThompsonHospitalist Justin Perez R.N., M.D.;[Electronically signed by Yanci Flynn (15:54 06/02)][Electronically signed by Justin Perez M.D. (16:43 06/19/2020)][Electronically locked by Yanci Flynn (15:54 06/19/2020)] Name Value Range Interpretation Code Description Data Ynes rce(s) Supporting Document(s) ID Date Data Source [id number] 06/19/2020 10:58:00 AM EST [facility] 1 Medication Reconciliation Report [facility] Emergency Department [address] [place] [address] Phone #: ext- [phone] 06/19/2020 10:53 Patient: LIN MCRAE Sex: M : 1940 Age: 79yWeight: 83.9 kgHeight/Length: 65 in.BMI: 30.8ALLERGIES: CiclopiroxThe patient's Home Medications are listed below:THE FOLLOWING MEDICATIONS NEED TO BE RECONCILED: Allopurinol Oral (100 mg) 1 tablet, daily amLODIPine Besylate Oral (5 mg), daily Aspirin EC Low Dose Oral (81 mg), daily Atorvastatin Calcium Oral (80 mg) 1 tablet, at bedtime Cholecalciferol Oral (1000 unit) 2 tablets, daily Doxepin HCl Oral (10 mg) 1 capsule, daily, at bedtime Dulcolax Rectal, prn Eliquis Oral (2.5 mg), 2x a day Gabapentin Oral (100 mg), 2x a day Keppra Oral (500 mg), 2x a day Lasix Oral (40 mg), daily Lidocaine HCl External (4 %), daily MagOx 400 Oral (400 (241.3 Mg) mg), daily Montelukast Sodium Oral (10 mg), daily, at bedtime Natrual balance tears solution 2 Medication Reconciliation Report [facility] Emergency Department [address] [place] [address] Phone #: ext- [phone] 06/19/2020 10:53 Patient: LIN MCRAE Sex: Geovany : 1940 Age: 79y Nunda 3-6-9 Oral 1200mg, daily Omeprazole Oral (40 mg), daily Pred Forte Ophthalmic, 4x a day tiZANidine HCl Oral (2 mg), q8h Toprol XL Oral (50 mg) 1 tablet, daily Triamcinolone Acetonide External Va ltrex Oral (500 mg) 1 tablet, dailyThe source(s) of the original Home Medication information:Not obtained.The following Medications were given to the patient in the Emergency Department:NS IV Fluids bolus 0, then 1000, administered: 06/19/2020 11:40:00 AMOFIRMEV Drip IV bolus 0, then 1000, administered: 06/19/2020 12:35:00 PMMorphine [IVP] IVP 4 mg, administered: 06/19/2020 2:26:00 PMThe following Medications were prescribed to the patient:None. Name Value Range Interpretation Code Description Data Ynes rce(s) Supporting Document(s) ID Date Data Source [id number] 06/19/2020 10:58:00 AM [facility] 1 Medication Administration Record [facility] Emergency Department [address] [place] [address] Phone #: ext- [phone] 06/19/2020 10:53 Patient: LIN MCRAE Sex: M : 1940 Age: 79yWeight: 83.9 kgHeight/Length: 65 inBMI: 30.8ALLERGIES: Ciclopirox Date/Time Medication Administered Medication OrderedStart NS * NS IV 500 mL Bolus: : Bolus 08136:40 06/19/2020 Dose: 1000 * IV Fluids mL, then 150 mL/hr (X1)Yanci Flynn,Start OFIRMEV * Ofirmev IV 1000 mg (NOW x1,12:35 06/19/2020 Dose: 1000 * Drip IV Infuse over 15 minutes)Yanci Flynn,----Stop12:50 06/19/2020Yanci Flynn,Given MORPHINE [IVP] Morphine IVP 4 mg (HIGH ALERT14:26 06/19/2020 Dose: 4 mg IVP MEDICATION)Yanci Flynn, Site: #2 left wrist Name Value Range Interpretation Code Description Data Ynes rce(s) Supporting Document(s) ID Date Data Source [id number] 06/19/2020 10:58:00 AM [facility] 1 General Instructions [facility] Emergency Department [address] [place] [address] Phone #: ext- [phone] 06/19/2020 10:53 Patient: LIN MCRAE Sex: M : 1940 Age: 79yVasovagal syncope.Chronic nontraumatic lumbar back pain.(Electronically signed by Justin Perez M.D. 06/19/2020 16:43) Name Value Range Interpretation Code Description Data Ynes rce(s) Supporting Document(s) ID Date Data Source [id number] 06/19/2020 10:58:00 AM EST [facility] 1 Clinical Report - Nurses [facility] Emergency Department [address] [place] [address] Phone #: ext- [phone] 06/19/2020 10:53 Patient: LIN MCRAE Sex: M : 1940 Age: 79yTRIAGE ( was in bed slipped off, pt does not remember was not alert at start 50/30 bp, pupils pinpoint, right before getting on stretcher started to get alert and oriented, legally blind 150/93). Acuity: LEVEL 3. Chief Complaint: SINGLE SYNCOPAL EPISODE. Alert. This occurred today. Patient was last known well (10:20 06/19/2020). He has had a headache. ( back pain, neck pain). Treatment CHILDCARE PROVIDER: None. SEPSIS SCREEN: Sepsis Screen negative. No suspected or confirmed signs of infection present. DEVIN COMA SCORE: 14- eyes open- spontaneous (4); best verbal response- confused (4); best motor response- obeys commands (6). --11:07 06/19/20 Charlotte Thompson R.N. 10:58 06/19/20. BP: 143/89. MAP: 107. HR: 89. RR: 20. O2 saturation: 100%. Temp: 97.2 F. --11:07 06/19/20 Charlotte Thompson R.N. ( edema legs). --11:24 06/19/20 Charlotte Thompson R.N. 11:24 06/19/20. Pain level now 12/09. --11:24 06/19/20 Charlotte Thompson R.N. Weight: 83.9 kg stated. Height/Length: 65 inches Per Patient. BMI: 30.8. --10:57 06/19/20 Charlotte Thompson R.N. Medications Triamcinolone Acetonide External. --11:13 06/19/20 Charlotte Thompson R.N. Eliquis Oral (Tablet 2.5 mg), 2x a day. --11:13 06/19/20 Charlotte Thompson R.N. Atorvastatin Calcium Oral (Tablet 80 mg) 1 tablet, at bedtime. --11:14 06/19/20 Charlotte Thompson R.N. Toprol XL Oral (Tablet Extended Release 24 Hour 50 mg) 1 tablet, daily. --11:14 06/19/20 Charlotte Thompson R.N. Lasix Oral (Tablet 40 mg), daily. --11:14 06/19/20 Charlotte Thompson R.N. Dulcolax Rectal, as needed. --11:15 06/19/20 Charlotte Thompson R.N. Lidocaine HCl External (Gel 4 %), daily. --11:15 06/19/20 Charlotte Thompson R.N. MagOx 400 Oral (Tablet 400 (241.3 Mg) mg), daily. --11:15 06/19/20 Charlotte Thompson R.N. Natrual balance tears solution. --11:16 06/19/20 Charlotte Thompson R.N. Nunda 3-6-9 Oral 1200mg, daily. --11:16 06/19/20 Charlotte Thompson R.N. Pred Forte Ophthalmic, 4x a day. --11:17 06/19/20 Charlotte Thopmson R.N. 2 Clinical Report - Nurses [facility] Emergency Department [address] [place] [address] Phone #: ext- [phone] 06/19/2020 10:53 Patient: LIN MCRAE Sex: M : 1940 Age: 79ytiZANidine HCl Oral (Tablet 2 mg), q8h. --11:17 06/19/20 Charlotte Thompson R.N.Valtrex Oral (Tablet 500 mg) 1 tablet, daily. --11:06/19/20 Charlotte Thompson R.N.Allopurinol Oral (Tablet 100 mg) 1 tablet, daily. --11:18 06/19/20 Charlotte Thompson R.N.amLODIPine Besylate Oral (Tablet 5 mg), daily. --11:06/19/20 Charlotte Thompson R.N.Aspirin EC Low Dose Oral (Tablet Delayed Release 81 mg), daily. --11:06/19/20 Charlotte Thompson R.N.Cholecalciferol Oral (Tablet 1000 unit) 2 tablets, daily. --11:06/19/20 Charlotte Thompson R.N.Doxepin HCl Oral (Capsule 10 mg) 1 capsule, daily at bedtime. --11:06/19/20 Charlotte Thompson R.N.Gabapentin Oral (Capsule 100 mg), 2x a day. --11:06/19/20 Charlotte Thompson R.N.Keppra Oral (Tablet 500 mg), 2x a day. --11:06/19/20 Charlotte Thompson R.N.Montelukast Sodium Oral (Tablet 10 mg), daily at bedtime. --11:06/19/20 Charlotte Thompson R.N.Omeprazole Oral (Capsule Delayed Release 40 mg), daily. --11:06/19/20 Charlotte Thompson R.N.AllergiesCiclopirox. --11:06/19/20 Charlotte Thompson R.N.PROBLEMS:Spinal Stenosis.Hyperlipidemia.Gout.Essential Hypertension.Epilepsy.Dysphagia.COPD - Chronic Obstructive Pulmonary Disease .Constipation.Congestive Heart Failure.Adjustment disorder with mixed disturbance of emotions AND conduct.GERD.Zoster.CVA - Cerebrovascular Accident.Cancer.Blind.Fall.Renal Insufficiency.Myocardial Infarction.Leukemia. --11:06/19/20 Charlotte Thompson R.N.ADDITIONAL SURGERIES:Appendectomy.Infusaport.Knee replacement, b/l.Mastectomy.Testis excision. --11:06/19/20 Charlotte Thompson R.N.History 3 Clinical Report - Nurses [facility] Emergency Department [address] [place] [address] Phone #: [phone] 06/19/2020 10:53 Patient: LIN MCRAE Sex: Geovany : 1940 Age: 79y PAST MEDICAL HX: Immunizations: up-to-date. SOCIAL HX: Smoker- current status unknown (quit 17 years). Alcohol use. (quit 40 years ago). History of drug use. (quit 17 years ago). He was offered HIV testing but declined and hepatitis C testing but declined. He has not traveled outside the [place] Infectious disease exposure: No infectious disease exposure. (covid test done). Patient is not a known carrier of tuberculosis, hepatitis, HIV, MRSA or VRE. Patient is not a known carrier of CRE. SELF HARM ASSESSMENT: Self harm assessment was performed. Unable to assess the patient in regard to the question(s) "Have you recently felt down, depressed, or hopeless?", "Do you have thoughts of harming or killing yourself?", "Do you have a plan for harming or killing yourself?", "Have you recently had thoughts about harming or killing others?", "Do you have any dangerous items in your possession?", "Have you noticed less interest or pleasure in doing things?", "Are you here because you tried to hurt yourself?" and "Have you ever tried to hurt yourself before today?". ABUSE ASSESSMENT: Abuse assessment. Abuse denied. No suspicion of abuse. No report of abuse. NUTRITIONAL RISK ASSESSMENT: The nutritional risk assessment revealed no deficiencies. FALL RISK ASSESSMENT: Fall risk assessment completed. Risk factors identified include patient history of fall. Fall inte rventions initiated. Patient placed on stretcher. Side rails up x2. Bed in low position. Brakes on. Call light in reach of patient. Instructions given to patient including fall prevention information. Verbalizes understanding. FUNCTIONAL ASSESSMENT: Functional assessment performed: uses walker. LEARNING NEEDS ASSESSMENT: A learning needs assessment was performed. Factors affecting the patient's ability to learn include motivation and cognitive limitations. SKIN INTEGRITY ASSESSMENT: Skin integrity risk assessment completed. No skin integrity risk identified. --11:07 06/19/20 Charlotte Thompson R.N. Interventions Identification band on patient. To treatment room. --11:07 06/19/20 Charlotte Thompson R.N. Advanced care plan. Patient has advanced directive. A copy was requested. (DNR/DNI per assisted). --11:24 06/19/20 Charlotte Thompson R.N.PHYSICAL ASSESSMENT late entry - 11:00 06/19/20. To room via stretcher. ( Patient alert but states he does not know where he is. Denies remembering falling but states he has a history of "blood pressure problems"). GENERAL / NEURO / PSYCH: Oriented X 4. Appears in pain. Alert. Speech within normal limits. HEENT: No facial asymmetry noted. RESPIRATORY: Breath sounds within normal limits. Respirations not labored. CVS: Normal sinus rhythm noted. Capillary refill less than 2 seconds. 4 Clinical Report - Nurses [facility] Emergency Department [address] [place] [address] Phone #: ext- [phone] 06/19/2020 10:53 Patient: LIN MCRAE Sex: M : 1940 Age: 79y GI / : Abdomen soft and nontender. SKIN: Skin is warm. --11:35 06/19/20 Yanci Flynn 11:00 06/19/20. BP: 143/89. MAP: 107. Temp: 98 F. --11:35 06/19/20 Yanci Flynn ( +2 PITTING EDEMA IN LOWER EXTREMITIES FROM ANKLE TO KNEE.). --11:40 06/19/20 Yanci Flynn.NURSING PROGRESS NOTES monitoring coordinator and NIBP monitor placed on patient; monitor alarms on. Patient gowned. Reassurance given. Two patient identifiers checked. Call light placed in reach. Side rails up x 2. Bed placed in lowest position. Brakes of bed on. Patient ready for evaluation- ED physician notified. --11:07 06/19/20 Charlotte Thompson R.N. 11:18 06/19/2020 Site #1 started via IV in the right antecubital space with an 20g angiocath, with aseptic technique and good blood return; one attempt. Saline lock flushed with saline. --11:38 06/19/20 Yanci Flynn 11:24 06/19/20. Finger stick glucose: 80 mg/dL; performed by nurse. --11:39 06/19/20 Yanci Flynn 11:15 06/19/20. BP: 127/77. MAP: 93. HR: 86. RR: 13. O2 saturation: 100%. Temp: 98.1 F. Pain level now: 10. Patient is conversant and smiling. (states chronic pain in neck and back). It has been constant. --11:39 06/19/20 Yanci Flynn Patient transported to [place] by stretcher with light technician. --11:45 06/19/20 Yanci Flynn 11:40 06/19/2020 NS * IV Fluids 1000 500ML/HR --11:52 06/19/20 Yanci Flynn Patient returned from radiology by stretcher with light technician. --11:57 06/19/20 Yanci Flynn The patient is calm. --12:03 06/19/20 Yanci Flynn 12:00 06/19/20. BP: 128/72. MAP: 90. HR: 79. RR: 15. O2 saturation: 100%. Pain level now deferred. --12:03 06/19/20 Yanci Flynn 12:29 06/19/20. BP: 117/74. MAP: 88. HR: 89. RR: 14. O2 saturation: 100%. Pain level now: 01/09. --12:31 06/19/20 Yanci Flynn Rounding: Pain: assessed pain level. Position: repositioned. Personal care / toileting: denies toileting needs. Proximity of possessions / care items: call light within easy reach. Plug ins: assured IV pump plugged in; checked status of equipment in use; located all cords, tubes, and lines to prevent fall hazard. --12:31 06/19/20 Yanci Flynn 12:35 06/19/2020 [facility] * Drip IV 1000 IVPB OVER 15MIN --12:35 06/19/20 Yanci Flynn 5 Clinical Report - Nurses [facility] Emergency Department [address] [place] [address] Phone #: ext- [phone] 06/19/2020 10:53 Patient: LIN MCRAE Sex: M : 1940 Age: 79y12:50 06/19/2020 [facility] Drip IV Discontinued: completed. --13:25 06/19/20 Pedro Flynn3:26 06/19/20. BP: 135/90. MAP: 105. HR: 79. RR: 18. O2 saturation: 100%. Pain level now: 01/09.--13:06/19/20 Blake FlynnnRounding: Pain: assessed pain level. Position: repositioned. Personal care / toileting: assisted with toileting(jones care performed at bedside). Proximity of possessions / care items: call light within easy reach. Plugins: assured IV pump plugged in; checked status of equipment in use; located all cords, tubes, and lines toprevent fall hazard. --13:29 06/19/20 Pedro Flynn3:00 06/19/20. BP: 117/69. MAP: 85. HR: 73. RR: 11. O2 saturation: 98%. --13:30 06/19/20 Pedro Flynn4:00 06/19/2020 Site #2 started via IV in the left wrist with an 20g angiocath, with aseptic technique andgood blood return; one attempt (STARTED BY Bentley THOMPSON RN). --14:15 06/19/20 Madonna Flynn entry - 14:03 06/19/20.Rounding: Pain: assessed pain level. Position: repositioned. Personal care / toileting: denies toiletingneeds. Proximity of possessions / care items: call light within easy reach. Plug ins: assured IV pumpplugged in; checked status of equipment in use; located all cords, tubes, and lines to prevent fall hazard.--14:13 06/19/20 Pedro Flynn4:08 06/19/2020 NS IV Fluids Rate Changed: decreased to 150 mL/hr via IV pump. Confirmed 5 Rights.IV patency established. IV site checked: no pain, redness, or swelling. IV flushed thoroughly. --14: Pedro Flynn3:15 06/19/20. BP: 135/90. MAP: 105. HR: 79. RR: 18. O2 saturation: 100%. Pain level now: 01/09.--14:06/19/20 Pedro Flynn3:30 06/19/20. BP: 124/72. MAP: 89. HR: 86. RR: 18. O2 saturation: 100%. Pain level now: 01/09.--14:11 06/19/20 Pedro Flynn3:45 06/19/20. BP: 136/80. MAP: 98. HR: 81. RR: 17. O2 saturation: 100%. Pain level now: 01/09.--14:12 06/19/20 Pedro Flynn4:00 06/19/20. BP: 138/75. MAP: 96. HR: 82. RR: 19. O2 saturation: 100%. Pain level now: 01/09.--14:12 06/19/20 Pedro Flynn4:26 06/19/2020 Morphine IVP 4 mg given over 2 minute(s) via site #2. Allergies verified and confirmed 5rights. IV patency established. IV site checked: no pain, redness, or swelling. IV flushed thoroughly pre-and post- medication administration. IVP given by physician. Information reviewed with patient includingreason for taking this medication, signs of allergic reaction, precautions and sedative warning. Verbalizes 6 Clinical Report - Nurses [facility] Emergency Department [address] [place] [address] Phone #: ext- [phone] 06/19/2020 10:53 Patient: LIN MCRAE Sex: M : 1940 Age: 79y understanding. --14:27 06/19/20 Yanci Flynn 14:45 06/19/2020 Morphine IVP Response: pain is improving. --15:16 06/19/20 Yanci Flynn Rounding: Pain: assessed pain level. Position: states comfortable. Proximity of possessions / care items: call light within easy reach. Plug ins: assured IV pump plugged in; checked status of equipment in use; located all cords, tubes, and lines to prevent fall hazard. --15:17 06/19/20 Yanci Flynn 15:16 06/19/20. BP: 135/84. MAP: 101. HR: 77. RR: 13. O2 saturation: 99%. Pain level now: 09/11. --15:17 06/19/20 Yanci Flynn.DISPOSITION / DISCHARGE 15:27 06/19/2020 Site #1. Converted to saline lock. --15:52 06/19/20 Yanci Flynn Departure time: late entry - 15:45 06/19/2020. Admitted to the Acute Inpatient Unit. Transported via stretcher by nurse with mask. Report was given to a nurse. Report included patient's care, treatment, allergies, condition, vital signs, labs, medications and IV's. All questions were answered. Report was acknowledged and care was transferred. (Yaquelin). Bed obtained and ready. Patient has no belongings. Patient's personal items; items were placed in belongings bag and transported with the patient. Collection of belongings was witnessed by 1 nurse and foreign collection clerk. --15:54 06/19/20 Yanci Flynn 15:40 06/19/20. BP: 136/82. MAP: 100. HR: 79. RR: 17. O2 saturation: 99%. Temp: 98.3 F. Pain level now: 09/11. --15:54 06/19/20 Yanci Flynn.Locked/Released at 06/19/2020 15:54 by Yanci Flynn, Name Value Range Interpretation Code Description Data Ynes rce(s) Supporting Document(s) ID Date Data Source [id number] 06/19/2020 10:58:00 AM EST [facility] 1 Clinical Report - Physicians/Mid Levels [facility] Emergency Department [address] [place] [address] Phone #: ext- [phone] 06/19/2020 10:53 Patient: LIN MCRAE Sex: M : 1940 Age: 79y Time Seen: 11:01 06/19/2020; initial patient contact. Arrived- By ambulance. Historian- patient, EMS personnel and assisted nurse and records. Disposition decision: 13:15 06/19/2020.HISTORY OF PRESENT ILLNESS Chief Complaint: SINGLE SYNCOPAL EPISODE. The patient has recovered. This occurred just prior to arrival. Patient was reported to be last known well. It was abrupt in onset and has been constant. Event was witnessed. The patient had preceding symptoms of light-headedness. At time of event, he had just stood up. Had a single episode. The episode was brief and lasted seconds. No injuries noted. He currently has weakness. (pt has Hx of chronic neck and low back pain, but worse today; pt is [place] pt and per report, is DNR/DNI and BP was low at [facility]). Similar symptoms previously. None. Recent medical care: Not recently seen/assessed.REVIEW OF SYSTEMS No headache, dizziness, chest pain, palpitations or abdominal pain. No vomiting, diarrhea, black stools, numbness or bloody stools. No fever, sore throat, difficulty breathing, difficulty with urination or skin rash. No enlarged lymph nodes, cough or joint pain. The patient has had weakness. All other systems reviewed and are negative.PAST HISTORY See nurses notes. Problems: Chronic Back Pain. Gastroesophageal Reflux Disease. Atrial Fibrillation. Dementia. CML. Gout. Hyperlipidemia. Spinal Stenosis. Essential Hypertension. Congestive Heart Failure. Co nstipation. Dysphagia. Epilepsy. 2 Clinical Report - Physicians/Mid Levels [facility] Emergency Department [address] [place] [address] Phone #: ext- [phone] 06/19/2020 10:53 Patient: LIN MCRAE Sex: M : 1940 Age: 79yCOPD - Chronic Obstructive Pulmonary Disease.Adjustment disorder with mixed disturbance of emotions AND conduct.GERD.Zoster.CVA - Cerebrovascular Accident.Cancer.Blind.Fall.Renal Insufficiency.Myocardial Infarction.Leukemia.Additional Surgeries:Appendectomy.Infusaport.Knee replacement, b/l.Mastectomy.Testis excision.Medications:Omeprazole Oral (Capsule Delayed Release 40 mg), daily.Montelukast Sodium Oral (Tablet 10 mg), daily at bedtime.Keppra Oral (Tablet 500 mg), 2x a day.Gabapentin Oral (Capsule 100 mg), 2x a day.Doxepin HCl Oral (Capsule 10 mg) 1 capsule, daily at bedtime.Cholecalciferol Oral (Tablet 1000 unit) 2 tablets, daily.Aspirin EC Low Dose Oral (Tablet Delayed Release 81 mg), daily.amLODIPine Besylate Oral (Tablet 5 mg), daily.Allopurinol Oral (Tablet 100 mg) 1 tablet, daily.Valtrex Oral (Tablet 500 mg) 1 tablet, daily.tiZANidine HCl Oral (Tablet 2 mg), q8h.Pred Forte Ophthalmic, 4x a day.Nunda 3-6-9 Oral 1200mg, daily.Natrual balance tears solution.MagOx 400 Oral (Tablet 400 (241.3 Mg) mg), daily.Lidocaine HCl External (Gel 4 %), daily.Dulcolax Rectal, as needed.Lasix Oral (Tablet 40 mg), daily.Toprol XL Oral (Tablet Extended Release 24 Hour 50 mg) 1 tablet, daily.Atorvastatin Calcium Oral (Tablet 80 mg) 1 tablet, at bedtime.Eliquis Oral (Tablet 2.5 mg), 2x a day.Triamcinolone Acetonide External.Allergies:Ciclopirox. 3 Clinical Report - Physicians/Mid Levels [facility] Emergency Department [address] [place] [address] Phone #: ext- [phone] 06/19/2020 10:53 Patient: LIN MCRAE Sex: M : 1940 Age: 79ySOCIAL HISTORY Former smoker, end date 2002. No alcohol use or drug use. Resides in a assisted.ADDITIONAL NOTES The nursing notes have been reviewed with agreement regarding the chief complaint, HPI, ROS, PMH and patient medications and allergies.PHYSICAL EXAM Vital Signs: 06/19/2020 11:15 BP: 127/77. MAP: 93. HR: 86. RR: 13. O2 saturation: 100%. Temp: 98.1 F. Pain level now: 01/09. 06/19/2020 11:00 BP: 143/89. MAP: 107. Temp: 98 F. 06/19/2020 10:58 BP: 143/89. MAP: 107. HR: 89. RR: 20. O2 saturation: 100%. Temp: 97.2 F. Have been reviewed. Oxygen saturation normal. Appearance: Alert. No acute distress. Eyes: Pupils equal, round and reactive to light. No nystagmus. Extraocular movements normal. ENT: Normal ENT inspection. TM's normal. Moist mucous membranes. Pharynx normal. Neck: Normal inspection. Neck supple. (has diffuse b/l paracervical neck pain, ROM nml). CVS: Normal heart rate and rhythm. Heart sounds normal. Pulses normal. Respiratory: No respiratory distress. Painless inspiration. Breath sounds normal. Abdomen: Soft and nontender. No organomegaly. Back: Moderate soft-tissue tenderness in the right mid and lower and left mid and lower lumbar area. Mildly limited ROM in the back- in the lumbar spine: decreased flexion and extension. No CVA tenderness, vertebral point tenderness or muscle spasm. Skin: Skin warm and dry. Normal skin color. No rash. Normal skin turgor. Extremities: Extremities exhibit normal ROM. No lower extremity edema. Neuro: Alert. Oriented X 3. Mood/affect normal. Speech normal. Cranial nerves normal (as tested). No cerebellar findings. No motor deficit. No sensory deficit. Reflexes normal.LABS, X-RAYS, AND EKG EKG: No acute process. No acute ischemia. Normal EKG. Normal sinus rhythm. Rate: 96/min. Normal ST and T waves. EKG unchanged when compared with prior EKG. (03-01-20). The study has been interpreted contemporaneously by me. The EKG appears to be a good tracing. Interpretation time: 11:14 06/19/2020. Chest X-ray: No acute disease. Views: AP (portable). The X-rays were interpreted by the radiologist. Interpretation time: 12:36 06/19/2020. CT C-Spine: No acute findings. Degenerative joint disease. No fracture. (see report). The study was interpreted by the radiologist. Interpretation time: 12:56 06/19/2020. CT Head: No acute changes. (atrophy, chronic microvascular ischemic changes, old ischemia lt occipital lobe, no change from 20). Head CT performed without contrast. The study was interpreted by the radiologist. Interpretation time: 12:55 06/19/2020. CT L- Spine: No acute findings. Degenerative joint disease. No fracture. Note- see report. The study was interpreted by the radiologist. Interpretation time: 12:57 06/19/2020. Laboratory Tests: Laboratory tests have been ordered, with results reviewed and considered in the 4 Clinical Report - Physicians/Mid Levels [facility] Emergency Department [address] [place] [address] Phone #: ext- [phone] 06/19/2020 10:53 Patient: LIN MCRAE Sex: M : 1940 Age: 79ymedical decision making process.BNP: (NATHANAEL: 06/19/2020 12:13) ( MsgRcvd 06/19/2020 12:57) Final results Test Result Flag Units (Reference) BNP 648 H PG/ML (0 - 450)CBC w Diff: (NATHANAEL: 06/19/2020 12:13) ( MsgRcvd 06/19/2020 12:29) Final results Test Result Flag Units (Reference) CBC W/AUTOMATED DIFF COMPLETE BLOOD COUNT WBC 4.8 10/uL (4.2 - 11.0) RBC 3.79 L 10/uL (4.50 - 6.30) HEMOGLOBIN 10.3 L g/dL (14.0 - 16.0) HEMATOCRIT 32.5 L % (41.0 - 51.0) MCV 85.8 fL (80.0 - 94.0) MCH 27.2 pg (27.0 - 34.0) MCHC 31.7 g/dL (31.0 - 36.0) RDW 17.0 H % (11.5 - 14.8) PLATELETS 246 10/uL (150 - 450) MPV 10.4 fL (7.4 - 10.4) NEUT 67.0 % (37.0 - 80.0) LYMPH 16.5 L % (25.0 - 40.0) MONO 11.6 H % (3.0 - 8.0) EOS 3.3 % (0.0 - 7.0) BASO 0.8 % (0.0 - 2.0) %IG 0.8 H % (0.0 - 0.0) %NRBC 0.0 % (0.0 - 0.0) #NEUT 3.24 10/uL (2.00 - 6.90) #LYMPH 0.80 10/uL (0.60 - 3.40) #MONO 0.56 10/uL (0.00 - 0.90) #EOS 0.16 10/uL (0.00 - 0.70) #BASO 0.04 10/uL (0.00 - 0.20) #IG 0.04 10/uL (0.00 - 0.10) #NRBC 0.00 10/uL (0.00 - 0.00) MANUAL DIFF NOT INDICATED RBC MORPH NOT INDICATEDCMP: (NATHANAEL: 06/19/2020 12:13) ( MsgRcvd 06/19/2020 12:57) Final results Test Result Flag Units (Reference) COMPREHENSIVE META BOLIC PANEL COMPREHENSIVE METABOLIC PANEL SODIUM 141 mEq/L (134 - 153) POTASSIUM 4.7 mEq/L (3.6 - 5.0) CHLORIDE 108 H mEq/L (98 - 107) CO2 25 MEQ/L (22 - 30) GLUCOSE 98 MG/DL (65 - 110) BUN 17 MG/DL (7 - 21) CREATININE 1.3 MG/DL (0.7 - 1.5) BUN/CREAT 13 (8 - 27) TOTAL PROTEIN 6.4 G/DL (6.3 - 8.2) ALBUMIN 4.1 G/DL (3.9 - 5.0) GLOBULIN 2.3 L GM/DL (2.4 - 3.2) A/G RATIO 1.8 (0.8 - 2.0) CALCIUM 8.8 MG/DL (8.4 - 10.2) TOTAL BILI <0.7 MG/DL (0.2 - 1.3) ALKALINE PHOS 180 H U/L (38 - 126) SGOT/AST 24 U/L (5 - 40) 5 Clinical Report - Physicians/Mid Levels [facility] Emergency Department [address] [place] [address] Phone #: ext- [phone] 06/19/2020 10:53 Patient: LIN MCRAE Sex: M : 1940 Age: 79y SGPT/ALT 13 U/L (7 - 56) ANION GAP 8.0 mmol/L (8.0 - 16.0) AGE 79 yrs NON-AA GFR 57 mL/min AFR AMER GFR >60 mL/min Male GFR Interprentation 20-49 yrs >60 mL/min Normal 50-59 yrs >56 mL/min Normal 60-69 yrs >49 mL/min Normal 70-79yrs >42 mL/min Normal 80 and above >35 mL/min Normal Female GFR Interpretation 20-39 yrs >60 mL/min Normal 40-49 yrs >58 mL/min Normal 50-59 yrs >51 mL/min Normal 60-69 yrs >45 mL/min Normal 70-79 yrs >39 mL/min Normal 80 and above >32 mL/min Normal Lipase: (NATHANAEL: 06/19/2020 12:13) ( MsgRcvd 06/19/2020 12:55) Final results Test Result Flag Units (Reference) LIPASE 14 U/L (13 - 60) PT/PTT: (NATHANAEL: 06/19/2020 12:13) ( MsgRcvd 06/19/2020 12:36) Final results Test Result Flag Units (Reference) PROTIME 14.0 SECONDS (11.0 - 15.5) INR 1.07 (0.93 - 1.23) PTT 27.7 SECONDS (24.8 - 36.7) \\BLDo\\INR INTERPRETATION\\BLDx\\ Therapeutic range for Coumadin and related oral anticoagulants. -International Normalized Ratio (INR): 2.0 - 3.0 for Venous Thrombosis, Pulmonary Embolus, T issue heart valves, Acute RI Atrial Fibrillation, Valvular heart disease and recurrent Systemic Embolism. -International Normalized Ratio (INR): 2.5 - 3.5 for Mechanical Prosthetic valve. Troponin-T: (NATHANAEL: 06/19/2020 12:13) ( [facility] 06/19/2020 12:49) Final results Test Result Flag Units (Reference) TROPONIN T <0.01 NG/ML (0.00 - 0.10) TROPONIN T0.1 ng/ml Recommended as the clinical threshold value forTroponin T. CT Head W/O Cont: (NATHANAEL: 06/19/2020 11:27) ( [facility] 06/19/2020 12:30) In Progress CT HEAD W/O CONTRAST Reason(s): Syncope TRANSPORTATION: S IV? O2? Oxygen?(No) Room: ED CT Spine Cervical W/O Cont: (NATHANAEL: 06/19/2020 11:27) ( [facility] 06/19/2020 12:30) In Progress CT CERV SPINE W/O CONTRAS Reason(s): Pain TRANSPORTATION: S IV? O2? Oxygen?(No) Room: ED CT LUMBAR SP W/O CONT: (NATHANAEL: 06/19/2020 11:27) ( [facility] 06/19/2020 12:30) In Progress CT LUMBAR SP W/O CONT Reason(s): syncope, fall, back pain TRANSPORTATION: S IV? IV?(Yes) O2? Oxygen?(No) Ro. 6 Clinical Report - Physicians/Mid Levels [facility] Emergency Department [address] [place] [address] Phone #: ext- [phone] 06/19/2020 10:53 Patient: LIN MCRAE [facility]#: [id number] Sex: M : 1940 Age: 79yPROGRESS AND PROCEDURES Course of Care: 13:14 06/19/20. workup all in and reviewed, and nml; CT's head, C-spine and LS spine w/o all basically w NAD; case discussed w hospitalist, DALLAS Castillo, who will admit. Critical care performed (60 minutes). Time is exclusive of separately billable procedures. Time includes: direct patient care, patient reassessment, coordination of patient care, interpretation of data (laboratory data, chest xrays and prior electrocardiograms), review of patient's medical records, medical consultation and documentation of patient care- see progress notes. Patient counseled in person regarding the patient's stable condition, test resul ts, diagnosis and need for admission. Patient agrees with plan of care. Disposition: Condition: good and stable. Admit decision based on need for further evaluation, monitoring, telemetry, observation, IV therapy, hydration and medications and stabilization of condition.CLINICAL IMPRESSION Vasovagal syncope. Chronic nontraumatic lumbar back pain.(Electronically signed by Justin Perez M.D. 06/19/2020 16:43) Name Value Range Interpretation Code Description Data Ynes rce(s) Supporting Document(s) ID Date Data Source [id number] 06/19/2020 12:57:00 PM [facility] Name Value Range Interpretation Code Description Data Ynes rce(s) Supporting Document(s) BNP 648 PG/ML 0 - 450 H [facility] Hospit al ID Date Data Source [id number] 06/19/2020 12:57:00 PM [facility] Name Value Range Interpretation Code Description Data Ynes rce(s) Supporting Document(s) COMPREHENSIVE METABOLIC PANEL [facility] COMPREHENSIVE METABOLIC PANEL Sodium [Moles/volume] in Serum or Plasma 141 mEq/L 134 - 153 [facility] Potassium [Moles/volume] in Serum or Plasma 4.7 mEq/L 3.6 - 5.0 [facility] Chloride [Moles/volume] in Serum or Plasma 108 mEq/L 98 - 107 H [facility] Carbon dioxide, total [Moles/volume] in Serum or Plasma 25 MEQ/L 22 - 30 [facility] Glucose [Mass/volume] in Serum or Plasma 98 MG/DL 65 - 110 [facility] BUN 17 MG/DL 7 - 21 [facility] al Creatinine [Mass/volume] in Serum or Plasma 1.3 MG/DL 0.7 - 1.5 [facility] BUN/CREAT 13 8 - 27 [facility] Protein [Mass/volume] in Serum or Plasma 6.4 G/DL 6.3 - 8.2 [facility] Albumin [Mass/volume] in Serum or Plasma 4.1 G/DL 3.9 - 5.0 [facility] Globulin [Mass/volume] in Serum by calculation 2.3 GM/DL 2.4 - 3.2 L [facility] A/G RATIO 1.8 0.8 - 2.0 [facility] Calcium [Mass/volume] in Serum or Plasma 8.8 MG/DL 8.4 - 10.2 [facility] Bilirubin.total [Mass/volume] in Serum or Plasma <0.7 MG/DL 0.2 - 1.3 [facility] Alkaline phosphatase [Enzymatic activity/volume] in Serum or Plasma 180 U/L 38 - 126 H [facility] Aspartate aminotransferase [Enzymatic activity/volume] in Serum or Plasma 24 U/L 5 - 40 [facility] Alanine aminotransferase [Enzymatic activity/volume] in Seru m or Plasma 13 U/L 7 - 56 [facility] Anion gap 3 in Serum or Plasma 8.0 mmol/L 8.0 - 16.0 [facility] AGE 79 yrs [facility] al NON-AA GFR 57 mL/[facility] AFR AMER GFR >60 mL/min [facility] Ho spital Male GFR In terprentation 20-49 yrs >60 mL/min Normal 50-59 yrs >56 mL/min Normal 60-69 yrs >49 mL/min Normal 70-79yrs >42 mL/min Normal 80 and above >35 mL/min Normal Female GFR Interpretation 20-39 yrs >60 mL/min Normal 40-49 yrs >58 mL/min Normal 50-59 yrs >51 mL/min Normal 60-69 yrs >45 mL/min Normal 70-79 yrs >39 mL/min Normal 80 and above >32 mL/min Normal ID Date Data Source [id number] 06/19/2020 12:55:00 PM [facility] Name Value Range Interpretation Code Description Data Ynes rce(s) Supporting Document(s) Lipase [Enzymatic activity/volume] in Serum or Plasma 14 U/L 13 - 60 [facility] ID Date Data Source [id number] 06/19/2020 12:49:00 PM [facility] Name Value Range Interpretation Code Description Data Ynes rce(s) Supporting Document(s) TROPONIN T <0.01 NG/ML 0.00 - 0.10 [facility] ospital TROPONIN T0.1 ng/ml Recommended as the c linical threshold value forTroponin T. ID Date Data Source [id number] 06/19/2020 12:36:00 PM [facility] Name Value Range Interpretation Code Description Data Ynes rce(s) Supporting Document(s) Prothrombin time (PT) 14.0 SECONDS 11.0 - 15.5 Health system INR in Platelet poor plasma by Coagulation assay 1.07 0.93 - 1. 23 [facility] aPTT in Blood by Coagulation assay 27.7 SECONDS 24.8 - 36.7 [facility] \\BLDo\\INR INTERPRETATION\\BLDx\\ Therapeutic range for Coumadin and related oral anticoagulants. - International Normalized Ratio (INR): 2.0 - 3.0 for Venous Thrombosis, Pulmonary Embolus, Tissue heart valves, Acute RI Atrial Fibrillation, Valvular heart disease and recurrent Systemic Embolism. - International Normalized Ratio (INR): 2.5 - 3.5 for Mechanical Prosthetic valve. ID Date Data Source [id number] 06/19/2020 12:28:00 PM [facility] Name Value Range Interpretation Code Description Data Ynes rce(s) Supporting Document(s) CBC W/AUTOMATED DIFF [facility] COMPLETE BLOOD COUNT Leukocytes [#/volume] in Blood by Automated count 4.8 10^3/uL 4.2 - 1 1.0 [facility] Erythrocytes [#/volume] in Blood by Automated count 3.79 10^6/uL 4. 50 - 6.30 L [facility] Hemoglobin [Mass/volume] in Blood 10.3 g/dL 14.0 - 16.0 L [facility] Hematocrit [Volume Fraction] of Blood by Automated count 32.5 % 4 1.0 - 51.0 L [facility] Erythrocyte mean corpuscular volume [Entitic volume] by Auto mated count 85.8 fL 80.0 - 94.0 [facility] Erythrocyte mean corpuscular hemoglobin [Entitic mass] by Automated count 27.2 pg 27.0 - 34.0 [facility] Erythrocyte mean corpuscular hemoglobin concentration [Mass/volume] by Automated count 31.7 g/dL 31.0 - 36.0 [facility] Erythrocyte distribution width [Ratio] by Automated count 17.0 % 11.5 - 14.8 H [facility] Platelets [#/volume] in Blood by Automated count 246 10^3/uL 150 - 45 0 [facility] Platelet mean volume [Entitic volume] in Blood by Automated count 10.4 fL 7.4 - 10.4 [facility] Neutrophils/100 leukocytes in Blood by Automated count 67.0 % 37. 0 - 80.0 [facility] Lymphocytes/100 leukocytes in Blood by Manual count 16.5 % 25.0 - 40.0 L [facility] Monocytes/100 leukocytes in Blood by Automated count 11.6 % 3.0 - 8.0 H [facility] Eosinophils/100 leukocytes in Blood by Automated count 3.3 % 0.0 - 7.0 [facility] Basophils/100 leukocytes in Blood by Automated count 0.8 % 0.0 - 2.0 [facility] %IG 0.8 % 0.0 - 0.0 [facility] %NRBC 0.0 % 0.0 - 0.0 [facility] al Neutrophils [#/volume] in Blood by Automated count 3.24 10^3/uL 2.00 - 6.90 [facility] Lymphocytes [#/volume] in Blood by Automated count 0.80 10^3/uL 0.60 - 3.40 [facility] Monocytes [#/volume] in Blood by Automated count 0.56 10^3/uL 0.00 - 0.90 [facility] Eosinophils [#/volume] in Blood by Automated count 0.16 10^3/uL 0.00 - 0.70 [facility] Basophils [#/volume] in Blood by Automated count 0.04 10^3/uL 0.00 - 0.20 [facility] #IG 0.04 10^3/uL 0.00 - 0.10 [facility] H ospital #NRBC 0.00 10^3/uL 0.00 - 0.00 [facility] ospital MANUAL DIFF NOT INDICATED [facility] RBC MORPH NOT INDICATED [facility] spital ID Date Data Source [id number] 06/18/2020 06:37:00 AM [facility] Name Value Range Interpretation Code Description Data Ynes rce(s) Supporting Document(s) Levetiracetam [Mass/volume] in Serum or Plasma 29.1 ug/mL 10.0-40.0 [facility] This test was developed and its performa nce characteristicsdetermined by [facility]. It has not been cleared or approvedby the Food and Drug Administration. ID Date Data Source [id number] 06/13/2020 08:18:00 AM [facility] Name Value Range Interpretation Code Description Data Ynes rce(s) Supporting Document(s) Urate [Mass/volume] in Serum or Plasma 5.5 MG/DL 2.5 - 8.5 [facility] ID Date Data Source [id number] 06/13/2020 08:18:00 AM [facility] Name Value Range Interpretation Code Description Data Ynes rce(s) Supporting Document(s) Magnesium [Mass/volume] in Serum or Plasma 2.2 MG/DL 1.7 - 2.2 [facility] ID Date Data Source [id number] 06/13/2020 08:18:00 AM [facility] Name Value Range Interpretation Code Description Data Ynes rce(s) Supporting Document(s) COMPREHENSIVE METABOLIC PANEL [facility] COMPREHENSIVE METABOLIC PANEL Sodium [Moles/volume] in Serum or Plasma 144 mEq/L 134 - 153 [facility] Potassium [Moles/volume] in Serum or Plasma 4.4 mEq/L 3.6 - 5.0 [facility] Chloride [Moles/volume] in Serum or Plasma 107 mEq/L 98 - 107 [facility] Carbon dioxide, total [Moles/volume] in Serum or Plasma 30 MEQ/L 22 - 30 [facility] Glucose [Mass/volume] in Serum or Plasma 96 MG/DL 65 - 110 [facility] BUN 15 MG/DL 7 - 21 [facility] Creatinine [Mass/volume] in Serum or Plasma 1.3 MG/DL 0.7 - 1.5 [facility] BUN/CREAT 12 8 - 27 [facility] Protein [Mass/volume] in Serum or Plasma 5.8 G/DL 6.3 - 8.2 L [facility] Albumin [Mass/volume] in Serum or Plasma 4.4 G/DL 3.9 - 5.0 [facility] Globulin [Mass/volume] in Serum by calculation 1.4 GM/DL 2.4 - 3.2 L [facility] A/G RATIO 3.1 0.8 - 2.0 H [facility] Calcium [Mass/volume] in Serum or Plasma 9.2 MG/DL 8.4 - 10.2 [facility] Bilirubin.total [Mass/volume] in Serum or Plasma <0.7 MG/DL 0.2 - 1.3 [facility] Alkaline phosphatase [Enzymatic activity/volume] in Serum or Plasma 165 U/L 38 - 126 H [facility] Aspartate aminotransferase [Enzymatic activity/volume] in Serum or Plasma 19 U/L 5 - 40 [facility] Alanine aminotransferase [Enzymatic activity/volume] in Seru m or Plasma 14 U/L 7 - 56 [facility] Anion gap 3 in Serum or Plasma 7.0 mmol/L 8.0 - 16.0 L [facility]GE 79 [facility] GFR 57 mL/min [facility]essa AFR AMER GFR >60 mL/min [facility] Ho spital Male GFR In terprentation 20-49 yrs >60 mL/min Normal 50-59 yrs >56 mL/min Normal 60-69 yrs >49 mL/min Normal 70-79yrs >42 mL/min Normal 80 and above >35 mL/min Normal Female GFR Interpretation 20-39 yrs >60 mL/min Normal 40-49 yrs >58 mL/min Normal 50-59 yrs >51 mL/min Normal 60-69 yrs >45 mL/min Normal 70-79 yrs >39 mL/min Normal 80 and above >32 mL/min Normal ID Date Data Source [id number] 06/13/2020 07:58:00 AM EST [facility] Name Value Range Interpretation Code Description Data Ynes rce(s) Supporting Document(s) CBC NO DIFF [facility] COMPLETE BLOOD COUNT Leukocytes [#/volume] in Blood by Automated count 4.4 10^3/uL 4.2 - 1 1.0 [facility] Erythrocytes [#/volume] in Blood by Automated count 3.74 10^6/uL 4. 50 - 6.30 L [facility] Hemoglobin [Mass/volume] in Blood 10.0 g/dL 14.0 - 16.0 L [facility] Hematocrit [Volume Fraction] of Blood by Automated count 31.9 % 4 1.0 - 51.0 L [facility] Erythrocyte mean corpuscular volume [Entitic volume] by Auto mated count 85.3 fL 80.0 - 94.0 [facility] Erythrocyte mean corpuscular hemoglobin [Entitic mass] by Automated count 26.7 pg 27.0 - 34.0 L [facility] Erythrocyte mean corpuscular hemoglobin concentration [Mass/volume] by Automated count 31.3 g/dL 31.0 - 36.0 [facility] Erythrocyte distribution width [Ratio] by Automated count 16.9 % 11.5 - 14.8 H [facility] Platelets [#/volume] in Blood by Automated count 239 10^3/uL 150 - 45 0 [facility] Platelet mean volume [Entitic volume] in Blood by Automated count 10.5 fL 7.4 - 10.4 H [facility] ID Date Data Source [id number] 04/12/2020 02:10:00 PM EDT [facility] [address] [place] [address] PHONE: [phone] FAX: [phone] [facility] .................. : [id number] ROOM. ................. : Number ................... : [id number] Stay type ............. : O/P Discharge Date......... ... : 04/11/20 Admit Date ....... .. : 04/11/20 Admit Phys .................... : OLIVEIRA HARD Date of ....... : 1940 Family Phys ................... : JESSICADAVONTE Phone .................. : [phone] Age ................................ : 79 Film# .................. .:[id number] Sex ................................. : M Unsigned transcriptions are preliminary reports and do not represent a medical or legal document CT HEAD W/O CONTRAST [id number] COMPLETE:04/11/20 10:59 [id number] (REASON FOR PROCEDURE SEVERE HEADACHE CT HEAD WITHOUT CONTRAST ENHANCEMENT, 04/11/20: INDICATION: Severe headache. FINDINGS: There are diffuse atrophic changes consistent with your patient's age with periventricular white matter changes identified, consistent with chronic ischemia of the aging process. 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 There are no signs of any evidence for any intracranial bleeds or any acute infractions. Skull base is normal. Sinuses are clear. 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 While performing the above CT examination, radiation dose reduction was accomplished utilizing automated exposure control, adjusting of the mA and kV based on the patient's body size and/or the use of imperative reconstructive techniques. CT dose 857.2 mGycm. Electronically Reviewed and Signed By TARYN SALDIVAR MD , 04/12/20 14:10, [facility] Transcribe Initials: SSR, Transcribe Date: 04/11/20 13:31, Dictation Date: Page 1 of 2 [facility] [address] [place] [address] PHONE: [phone] FAX: [phone] Name .................. : USHA Armenta Acct Number.................. : [id number] ROOM. ................. : MR Number ................... : [id number] Stay type ............. : O/P Discharge Date......... ... : 04/11/20 Admit Date ......... : 04/11/20 Admit Phys .................... : OLIVEIRA HARD Date of ....... : 1940 Family Phys ................... : DINO Phone .................. : [phone] Age ................................ : 79 Film# .................. .:[id number] Sex ..................... ............ : M Unsigned transcriptions are preliminary reports and do not represent a medical or legal document CT HEAD W/O CONTRAST [id number] COMPLETE:04/11/20 10:59 83985 (REASON FOR PROCEDURE SEVERE HEADACHE Copy for: 710 MED REC Page 2 of 2 Name Value Range Interpretation Code Description Data Ynes rce(s) Supporting Document(s) ID Date Data Source [id number] 04/04/2020 08:50:00 AM EDT [facility] Name Value Range Interpretation Code Description Data Ynes rce(s) Supporting Document(s) Ferritin [Mass/volume] in Serum or Plasma 26.5 ng/mL 5.0 - 244 [facility] ID Date Data Source [id number] 04/04/2020 08:50:00 AM EDT [facility] Name Value Range Interpretation Code Description Data Ynes rce(s) Supporting Document(s) Thyroxine (T4) free index in Serum or Plasma by calculation 0.93 NG/DL 0.93 - 1.70 [facility] ID Date Data Source [id number] 04/04/2020 08:50:00 AM EDT [facility] Name Value Range Interpretation Code Description Data Ynes rce(s) Supporting Document(s) Thyrotropin [Units/volume] in Serum or Plasma by Detec tion limit <= 0.05 mIU/L 6.17 uIU/mL 0.47 - 5.01 H [facility] ID Date Data Source [id number] 04/04/2020 08:33:00 AM EDT [facility] Name Value Range Interpretation Code Description Data Ynes rce(s) Supporting Document(s) Iron [Mass/volume] in Serum or Plasma 53 UG/DL 42 - 135 [facility] Iron binding capacity.unsaturated [Mass/volume] in Serum or Plasma 255 UG/DL 112 - 347 [facility] Iron binding capacity [Mass/volume] in Serum or Plasma 308 ug/dL 250 - 450 [facility] Iron saturation [Mass Fraction] in Serum or Plasma 17 % [facility] ID Date Data Source [id number] 04/04/2020 08:33:00 AM EDT [facility] Name Value Range Interpretation Code Description Data Ynes rce(s) Supporting Document(s) Magnesium [Mass/volume] in Serum or Plasma 2.3 MG/DL 1.7 - 2.2 H [facility] ID Date Data Source [id number] 04/04/2020 08:33:00 AM EDT [facility] Name Value Range Interpretation Code Description Data Ynes rce(s) Supporting Document(s) CVE PANEL [facility] al LIPID PANEL Cholesterol [Mass/volume] in Serum or Plasma 152 MG/DL 131 - 200 [facility] Deprecated Triglyceride [Mass/volume] in Serum or Plasma 92 MG/DL 3 5 - 160 [facility] HDL 64 MG/DL 29 - 86 [facility] Cholesterol in LDL [Mass/volume] in Serum or Plasma by Direc t assay 74 mg/dL 65 - 175 [facility] Cholesterol.total/Cholesterol in HDL [Mass Ratio] in Serum o r Plasma 2.4 3.4 - 4.9 L [facility] LDL/HDL 1.16 1.00 - 3.55 [facility] CVE RISK CHOL/HDL LDL/HDLMEN: 1/2 AVERAGE 3.43 1.00 AVERAGE 4.97 3.55 2X AVERAGE 9.55 6.25 3X AVERAGE 23.99 7.99WOMEN: 1/2 AVERAGE 3.27 1.47 AVERAGE 4.44 3.22 2X AVERAGE 7.05 5.03 3X AVERAGE 11.04 6.14 ID Date Data Source [id number] 04/04/2020 08:33:00 AM EDT [facility] Name Value Range Interpretation Code Description Data Ynes rce(s) Supporting Document(s) Potassium [Moles/volume] in Serum or Plasma 4.7 mEq/L 3.6 - 5.0 [facility] ID Date Data Source [id number] 04/04/2020 08:33:00 AM EDT [facility] Name Value Range Interpretation Code Description Data Ynes rce(s) Supporting Document(s) COMPREHENSIVE METABOLIC PANEL [facility] COMPREHENSIVE METABOLIC PANEL Sodium [Moles/volume] in Serum or Plasma 139 mEq/L 134 - 153 [facility] Potassium [Moles/volume] in Serum or Plasma 4.7 mEq/L 3.6 - 5.0 [facility] Chloride [Moles/volume] in Serum or Plasma 101 mEq/L 98 - 107 [facility] Carbon dioxide, total [Moles/volume] in Serum or Plasma 28 MEQ/L 22 - 30 [facility] Glucose [Mass/volume] in Serum or Plasma 88 MG/DL 65 - 110 [facility] BUN 10 MG/DL 7 - 21 [facility] al Creatinine [Mass/volume] in Serum or Plasma 1.0 MG/DL 0.7 - 1.5 [facility] BUN/CREAT 10 8 - 27 [facility] Protein [Mass/volume] in Serum or Plasma 5.7 G/DL 6.3 - 8.2 L [facility] Albumin [Mass/volume] in Serum or Plasma 3.7 G/DL 3.9 - 5.0 L [facility] Globulin [Mass/volume] in Serum by calculation 2.0 GM/DL 2.4 - 3.2 L [facility] A/G RATIO 1.9 0.8 - 2.0 [facility] Calcium [Mass/volume] in Serum or Plasma 9.1 MG/DL 8.4 - 10.2 [facility] Bilirubin.total [Mass/volume] in Serum or Plasma <0.7 MG/DL 0.2 - 1.3 [facility] Alkaline phosphatase [Enzymatic activity/volume] in Serum or Plasma 192 U/L 38 - 126 H [facility] Aspartate aminotransferase [Enzymatic activity/volume] in Serum or Plasma 20 U/L 5 - 40 [facility] Alanine aminotransferase [Enzymatic activity/volume] in Seru m or Plasma 13 U/L 7 - 56 [facility] Anion gap 3 in Serum or Plasma 10.0 mmol/L 8.0 - 16.0 [facility] AGE 79 yrs [facility] al NON-AA GFR >60 mL/min [facility] AFR AMER GFR >60 mL/min [facility] Male GFR In terprentation 20-49 yrs >60 mL/min Normal 50-59 yrs >56 mL/min Normal 60-69 yrs >49 mL/min Normal 70-79yrs >42 mL/min Normal 80 and above >35 mL/min Normal Female GFR Interpretation 20-39 yrs >60 mL/min Normal 40-49 yrs >58 mL/min Normal 50-59 yrs >51 mL/min Normal 60-69 yrs >45 mL/min Normal 70-79 yrs >39 mL/min Normal 80 and above >32 mL/min Normal ID Date Data Source [id number] 04/04/2020 08:14:00 AM EDT [facility] Name Value Range Interpretation Code Description Data Ynes rce(s) Supporting Document(s) CBC NO DIFF [facility] COMPLETE BLOOD COUNT Leukocytes [#/volume] in Blood by Automated count 5.3 10^3/uL 4.2 - 1 1.0 [facility] Erythrocytes [#/volume] in Blood by Automated count 3.88 10^6/uL 4. 50 - 6.30 L [facility] Hemoglobin [Mass/volume] in Blood 10.4 g/dL 14.0 - 16.0 L [facility] Hematocrit [Volume Fraction] of Blood by Automated count 33.1 % 4 1.0 - 51.0 L [facility] Erythrocyte mean corpuscular volume [Entitic volume] by Auto mated count 85.3 fL 80.0 - 94.0 [facility] Erythrocyte mean corpuscular hemoglobin [Entitic mass] by Automated count 26.8 pg 27.0 - 34.0 L [facility] Erythrocyte mean corpuscular hemoglobin concentration [Mass/volume] by Automated count 31.4 g/dL 31.0 - 36.0 [facility] Erythrocyte distribution width [Ratio] by Automated count 14.6 % 11.5 - 14.8 [facility] Platelets [#/volume] in Blood by Automated count 206 10^3/uL 150 - 45 0 [facility] Platelet mean volume [Entitic volume] in Blood by Automated count 10.6 fL 7.4 - 10.4 H [facility] ID Date Data Source [id number] 03/07/2020 12:33:00 PM EDT [facility] 1 OrderSheet [facility] Emergency Department [address] [place] [address] Phone #: ext- [phone] 03/07/2020 12:30 Patient: LIN MCRAE Sex: M : 1940 Age: 79yWEIGHT:82.9 kg (M) HEIGHT:67 inches (S) BMI:28.7ALLERGIES: NoneCHIEF COMPLAINT: no complaintsLAB ORDERSOrder Description Priority Entered Acknowledged InitialedDIAGNOSTIC STUDY ORDERSOrder Description Priority Entered Acknowledged InitialedMEDICATION/IV/DRIP/FLUID ORDERSOrder Description Priority Entered Acknowledged Initialed- (Heparin 12:54 03/07/2020 13:06 Lex,300Unit/3ml flush Helene Fountain R.N.for port) PA;GENERAL ORDERSOrder Description Priority E ntered Acknowledged Initialed-- (please removel 12:54 03/07/2020 13:04 Lex,needle from port) Helene Fountani R.N. PA;[Electronically signed by Essie Burnett R.N. (13:47 03/07/2020)][Electronically signed by Helene Hramon (22:34 03/07/2020)][Electronically locked by Essie Burnett R.N. (13:47 03/07/2020)] Name Value Range Interpretation Code Description Data Ynes rce(s) Supporting Document(s) ID Date Data Source [id number] 03/07/2020 12:33:00 PM EDT [facility] 1 Medication Reconciliation Report [facility] Emergency Department [address] [place] [address] Phone #: ext- [phone] 03/07/2020 12:30 Patient: LIN MCRAE Sex: M : 1940 Age: 79yWeight: 82.9 kgHeight/Length: 67 in.BMI: 28.7ALLERGIES: NoneThe patient's Home Medications are listed below:CONTINUE TAKING THE FOLLOWING MEDICATIONS: Aspirin Oral (81 mg), daily Gabapentin Oral 100 mg, 2x a day Lasix Oral 40 mg, daily levETIRAcetam Oral 500 mg, 2x a day Magn esium Oxide Oral (400 (241.3 Mg) mg), 2x a day Omeprazole Oral 40 mg, daily Potassium Chloride Oral 20 meq, 2x a day Singulair Oral 10 mg, dailyThe source(s) of the original Home Medication information:Not obtained.The following Medications were given to the patient in the Emergency Department:Heparin Flush [IVP] IVP 3 mL, administered: 03/07/2020 12:56:00 PMThe following Medications were prescribed to the patient:None. Name Value Range Interpretation Code Description Data Ynes rce(s) Supporting Document(s) ID Date Data Source [id number] 03/07/2020 12:33:00 PM EDT [facility] 1 Medication Administration Record [facility] Emergency Department [address] [place] [address] Phone #: ext- [phone] 03/07/2020 12:30 Patient: LIN MCRAE Sex: M : 1940 Age: 79yWeight: 82.9 kgHeight/Length: 67 inBMI: 28.7ALLERGIES: None Date/Time Medication Administered Medication OrderedGiven HEPARIN FLUSH [IVP] - (Heparin 300Unit/3ml flush for12:56 03/07/2020 Dose: 3 mL IVP port)Essie Burnett R.N. Site: #1 right chest Name Value Range Interpretation Code Description Data Ynes rce(s) Supporting Document(s) ID Date Data Source [id number] 03/07/2020 12:33:00 PM EDT [facility] 1 General Instructions [facility] Emergency Department [address] [place] [address] Phone #: ext- [phone] 03/07/2020 12:30 Patient: LIN MCRAE Sex: M : 1940 Age: 79yHuber needle and tubing left in port from previous hospital admission. Needle removed today.INSTRUCTIONS(Follow up with your regular provider for continued monitoring.).Warnings: GENERAL WARNINGS: Return or contact your physician immediately if your conditionworsens or changes unexpectedly, if not improving as expected, or if other problems arise. Specificallyreturn if problem worsens or fails to resolve.Your Current Medications: Your current home medications have been reviewed.CONTINUE TAKING THE FOLLOWING MEDICATIONS:Aspirin Oral : Tablet Delayed Release 81 mg, daily.Gabapentin Oral : 100 mg 2x a day.Lasix Oral : 40 mg daily.levETIRAcetam Oral : 500 mg 2x a day.Magnesium Oxide Oral : Tablet 400 (241.3 Mg) mg, 2x a day.Omeprazole Oral : 40 mg daily.Potassium Chloride Oral : 20 meq 2x a day.Singulair Oral : 10 mg daily.Understanding of the discharge instructions ve rbalized by patient.Follow-up with: Craig Lewis MD, , , [address] [place], [place],[address] Follow up as scheduled. Reason for referral: evaluation and treatment. Summary of care provided topatient via paper.(Electronically signed by DALLAS Jackson 03/07/2020 22:34) 2 General Instructions [facility] Emergency Department [address] [place] [address] Phone #: ext- [phone] 03/07/2020 12:30 Patient: LIN MCRAE Sex: M : 1940 Age: 79y Name Value Range Interpretation Code Description Data Ynes rce(s) Supporting Document(s) ID Date Data Source [id number] 03/07/2020 12:33:00 PM EDT [facility] 1 Clinical Report - Nurses [facility] Emergency Department [address] [place] [address] Phone #: ext- [phone] 03/07/2020 12:30 Patient: LIN MCRAE Sex: M : 1940 Age: 79yTRIAGEArrived by private vehicle. Historian: patient.Triage time: 12:33 03/07/2020. Acuity: LEVEL 5.Chief Complaint: The patient has NO COMPLAINT.12:33 03/07/20. Alert. No acute distress.( Was discharged from hospital 03/02 with port access needle).SEPSIS SCREEN: SIRS Screen negative. S epsis Screen negative. Possible sources of infection: infectionof skin. --12:41 03/07/20 Sandy Escobar RN12:33 03/07/20. BP: 130/72. MAP: 91. HR: 91. RR: 23. O2 saturation: 100%. Temp: 98.2 F. Pain levelnow: 0/10. --12:41 03/07/20 Sandy Escobar RN.Weight: 82.9 kg measured. Height/Length: 67 inches Per Patient. BMI: 28.7. --12:33 03/07/20 RAYNE Haynes.MedicationsAspirin Oral (Tablet Delayed Release 81 mg), daily. Gabapentin Oral 100 mg, 2x a day. Lasix Oral 40 mg, daily. levETIRAcetam Oral 500 mg, 2x a day. Magnesium Oxide Oral (Tablet 400 (241.3 Mg) mg), 2x a day. Omeprazole Oral 40 mg, daily. Potassium Chloride Oral 20 meq, 2x a day. Singulair Oral 10 mg, daily. --12:41 03/07/20 Sandy Escobar RN.AllergiesNone. --12:41 03/07/20 Sandy Escobar RN.PROBLEMS:Fall.Blind.CVA - Cerebrovascular Accident.Cancer.Renal Insufficiency.Myocardial Infarction.Leukemia. --12:41 03/07/20 Sandy Escobar RN.ADDITIONAL SURGERIES: 2 Clinical Report - Nurses [facility] Emergency Department [address] [place] [address] Phone #: ext- [phone] 03/07/2020 12:30 Patient: LIN MCRAE Sex: Geovany : 1940 Age: 79y Appendectomy. Knee replacement, b/l. Mastectomy. Testis excision. --12:41 03/07/20 Sandy Escobar RN. History 12:33 03/07/20. PAST MEDICAL HX: Immunizations: up-to-date. SOCIAL HX: Former smoker, end date 1999. No alcohol use or drug use. He was offered HIV testing but declined and hepatitis C testing but declined. He has not traveled outside the [place] Infectious disease exposure: No infectious disease exposure. (Denies contact with PUI for COVID-19, Denies symptoms of COVID-19). Patient is not a known carrier of tuberculosis, hepatitis, HIV, MRSA or VRE. Patient is not a known carrier of CRE. SELF HARM ASSESSMENT: Self harm assessment was performed. The patient answered "no" to the question(s) "Do you have thoughts of harming or killing yourself?" and "Have you recently had thoughts about harming or killing others?". ABUSE ASSESSMENT: Abuse assessment. The patient had positive responses to the question(s) "Do you feel safe in your home?" (yes). No report of abuse. NUTRITIONAL RISK ASSESSMENT: The nutritional risk assessment revealed no deficiencies. LEARNING NEEDS ASSESSMENT: The learning needs assessment revealed no barriers. FALL RISK ASSESSMENT: Fall risk assessment completed. Risk factors identified include patient history of fall. Fall interventions initiated. Patient placed on stretcher. Side rails up x2. Bed in low position. Brakes on. Call light in reach of patient. Instructed not to get up without assistance. Instructions given to including fall prevention information. Verbalizes understanding. FUNCTIONAL ASSESSMENT: Functional assessment performed: independent with the activities of daily living; uses walker. --12:41 03/07/20 Sandy Escobar RN.PHYSICAL ASSESSME NTAmbulatory to room.GENERAL / NEURO / PSYCH: Alert. Oriented X 4. Appears in no acute distress. ( Pt requesting port georgina removed as was sent home with it during last admission, [facility]RESPIRATORY: Respirations not labored. Chest nontender. Breath sounds within normal limits.CVS: Pulses within normal limits.GI / : Abdomen soft and nontender.SKIN: Skin is warm and dry. --12:52 03/07/20 Essie Burnett R.N. 3 Clinical Report - Nurses [facility] Emergency Department [address] [place] [address] Phone #: ext- [phone] 03/07/2020 12:30 -- Patient: LIN MCRAE Sex: M : 1940 Age: 79yNURSING PROGRESS NOTES12:40 03/07/20. Head of bed elevated. Two patient identifiers checked. Call light placed in reach. Siderails up x 2. Brakes of bed on. Patient ready for evaluation- ED physician and PA notified. --12: Sandy Escobar RN 12:48 03/07/2020 Site #1 accessed indwelling Mediport in the right chest using a 20g, 1 inch non-coring needle. Good blood return noted (Pt arrived with this access, tegaderm appeared intact). --13:03 03/07/20 Essie Burnett R.N. 12:56 03/07/2020 Heparin Flush IVP 3 mL given via site #1. Allergies verified and confirmed 5 rights. IV patency established. IV site checked: no pain, redness, or swelling. IV flushed thoroughly pre- and post-medication administration. IVP given by RN. Information reviewed with patient including reason for taking this medication, signs of allergic reaction, precautions and anticoagulant drug warnings. Verbalizes understanding (Port flushed per order). --13:06 03/07/20 Essie Burnett R.N. 12:59 03/07/2020 Site #1 removed upon discharge. Catheter intact. Bandaid applied (no bleeding occurred, left open to air, flushed per protocol prior to removal). --13:04 03/07/20 Essie Burnett R.N.DISPOSITION / DISCHARGE late entry - 13:20 03/07/20. Departure time: late entry - 13:03/07/2020. Condition at departure: improved. No learning barriers present. Discharge instructions provided and reviewed with the patient. Reviewed warnings. Reviewed referrals (keep follow up apt). Patient verbalized understanding. Written instructions provided in Kazakh. The patient was discharged by the physician optometrist assistant. He was accompanied by family and discharged (apt). He left ambulatory and via private vehicle. Family member driving. --13:36 03/07/20 Essie Burnett R.N. 13:38 03/07/20. BP: 109/63. HR: 84. RR: 22. O2 saturation: 95%. Temp: 98.6 F. Pain lev el now 04/11. --13:39 03/07/20 Melvin Garcia, ER Advertising Traffic Manager Change to Details. --13:39 03/07/20 Melvin Garcia, ER Advertising Traffic Manager 13:19 03/07/20. BP: 109/63. MAP: 78. HR: 84. RR: 22. O2 saturation: 95%. Temp: 98.6 F. Pain level now: 04/11. --13:40 03/07/20 Melvin Garcia, ER Advertising Traffic Manager.Locked/Released at 03/07/2020 13:47 by Essie Burnett R.N. Name Value Range Interpretation Code Description Data Ynes e(s) Supporting Document(s) ID Date Data Source [id number] 03/07/2020 12:33:00 PM EDT [facility] 1 Clinical Report - Physicians/Mid Levels [facility] Emergency Department [address] [place] [address] Phone #: ext- [phone] 03/07/2020 12:30 Patient: LIN MCRAE Sex: M : 1940 Age: 79y Time Seen: 12:45 03/07/2020. Arrived- By private vehicle. Historian- patient. Disposition decision: 13:10 03/07/2020.HISTORY OF PRESENT ILLNESS Chief Complaint: Pt states he still has a needle in his port from a previous hospital admission. This started several days ago and is still present. (Pt presents stating there is still a needle and tubing noted in his port from a hospital admission several days ago. He denies any other complaints at this time.). Similar symptoms previously. None. Recent medical care: The patient was seen recently by a health care provider.REVIEW OF SYSTEMSNo chills, fatigue, fever, ear pain or nasal congestion. No runny nose, sinus pain, sore throat, chest painor cough. No difficulty breathing, abdominal pain, skin rash or headache. The patient has had back painand joint pain.PAST HISTORYProblems:Blind.CVA - Cerebrovascular Accident.Cancer.Renal Insufficiency.Myocardial Infarction.Leukemia. Additional Surgeries: Appendectomy. Knee replacement, b/l. Mastectomy. Testis excision. Medications: Aspirin Oral (Tablet Delayed Release 81 mg), daily. Gabapentin Oral 100 mg, 2x a day. Lasix Oral 40 mg, daily. levETIRAcetam Oral 500 mg, 2x a day. Magnesium Oxide Oral (Tablet 400 (241.3 Mg) mg), 2x a day. Omeprazole Oral 40 mg, daily. 2 Clinical Report - Physicians/Mid Levels [facility] Emergency Department [address] [place] [address] Phone #: ext- [phone] 03/07/2020 12:30 Patient: LIN MCRAE Sex: M : 1940 Age: 79y Potassium Chloride Oral 20 meq, 2x a day. Singulair Oral 10 mg, daily. Allergies: None.SOCIAL HISTORYFormer smoker. No alcohol use or drug use.ADDITIONAL NOTESThe nursing notes have been reviewed with agreement regarding the chief complaint, HPI, ROS, PMH andpatient medications and allergies.PHYSICAL EXAMVital Signs: 03/07/2020 13:19 BP: 109/63. MAP: 78. HR: 84. RR: 22. O2 saturation: 95%. Temp: 98.6 F.Pain level now: 9/10.03/07/2020 12: 33 BP: 130/72. MAP: 91. HR: 91. RR: 23. O2 saturation: 100%. Temp: 98.2 F. Pain levelnow: 0/10. Have been reviewed and appear to be correct. Blood pressure normal. Heart rate normal.Respiratory rate normal. Temperature normal. Oxygen saturation normal.Appearance: Alert. No acute distress.CVS: Normal heart rate and rhythm. Heart sounds normal.Respiratory: No respiratory distress. Breath sounds normal. Chest nontender.Abdomen: No visible injury. Soft and nontender.Skin: Skin warm and dry. (LLE erythema).Extremities: Lower extremity edema.Neuro: Oriented X 3.PROGRESS AND PROCEDURESCourse of Care: 13:03 03/07/20. Melchor needle and tubing still noted in port. Will order a [id number]/3ml flush and have the nurse remove it, then will dc home. Nurse removed needle. pt tolerated procedure well. Will dc home. Disposition: Discharged home.CLINICAL IMPRESSION Melchor needle and tubing left in port from previous hospital admission. Needle removed today.INSTRUCTIONS (Follow up with your regular provider for continued monitoring.). 3 Clinical Report - Physicians/Mid Levels [facility] Emergency Department [address] [place] [address] Phone #: ext- [phone] 03/07/2020 12:30 Patient: LIN MCRAE Sex: M : 1940 Age: 79y Warnings: GENERAL WARNINGS: Return or contact your physician immediately if your condition worsens or changes unexpectedly, if not improving as expected, or if other problems arise. Specifically return if problem worsens or fails to resolve. Your Current Medications: Your current home medications have been reviewed. CONTINUE TAKING THE FOLLOWING MEDICATIONS: Aspirin Oral : Tablet Delayed Release 81 mg, daily. Gabapentin Oral : 100 mg 2x a day. Lasix Oral : 40 mg daily. levETIRAcetam Oral : 500 mg 2x a day. Magnesium Oxide Oral : Tablet 400 (241.3 Mg) mg, 2x a day. Omeprazole Oral : 40 mg daily. Potassium Chloride Oral : 20 meq 2x a day. Singulair Oral : 10 mg daily. Understanding of the discharge instructions verbalized by patient. Follow-up with: Craig Lewis MD, , , [address] [place] [address], [address] Follow up as scheduled. Reason for referral: evaluation and treatment. Summary of care provided to patient via paper.(Electronically signed by DALLAS Jackson 03/07/2020 22:34) Name Value Range Interpretation Code Description Data Ynes rce(s) Supporting Document(s) ID Date Data Source [id number] 03/04/2020 09:28:00 [place] [address] PHONE: [phone] FAX: [phone] Name .................. : USHA Armenta Acct Number.................. : [id number] ROOM. ................. : CCU3 MR Number ................... : [id number] Stay type ............. : I/P Discharge Date......... ... : Admit Date ......... : 03/01/20 Admit Phys .................... : STERLING TIMArash Date of ....... : 1940 Family Phys ................... : Par[employer] EnginesDAVONTE Phone .................. : [phone] Age ................................ : 79 Film# .................. .:[id number] Sex ................................. : M Unsigned transcriptions are preliminary reports and do not represent a medical or legal document CT HEAD W/O CONTRAST [id number] COMPLETE:03/01/20 17:18 KBO 21683 Lorena son(s): multiple falls CT OF THE HEAD WITHOUT CONTRAST: INDICATION: Multiple falls. COMPARISON: None available. FINDINGS: No intracranial hemorrhage, midline shift, mass effect or abnormal extra-axial fluid. Moderate age appropriate global volume loss with an old right caudate lacunar infarct. Low attenuation in the left occipital lobe is compatible with prior infarct as well. Cavum septum pellucidum: No hydrocephalus. IMPRESSION: Chronic small vessel ischemic change and old ischemic events. No acute intracranial abnormality. While performing the above CT examination, radiation dose reduct ion was accomplished utilizing automated exposure control, adjusting of the mA and kV based on the patient's body size and/or the use of imperative reconstructive techniques. CT dose: 852.8 mGycm ___ Electronically Reviewed and Signed By Yohan Elizabeth MD , 03/04/20 09:28, [facility] Transcribe Initials: DZ , Transcribe Date: 03/02/20 00:33, Dictation Date: Copy for: 710 MED REC DISCHARGED Page 1 of 1 Name Value Range Interpretation Code Description Data Ynes rce(s) Supporting Document(s) ID Date Data Source [id number] 03/04/2020 08:38:00 AM EDT [facility] [address] [place] [address] PHONE: [phone] FAX: [phone] Name .................. : USHA CEBALLOS Geovany Acct Number.................. : [id number] ROOM. ................. : CCU3 MR Number ................... : [id number] Stay type ............. : I/P Discharge Date......... ... : Admit Date ......... : 03/01/20 Admit Phys .................... : STERLING OCHOA Date of ....... : 1940 Family Phys ................... : DINO Phone .................. : [phone] Age ................................ : 79 Film# .................. .:[id number] Sex ................................. : M Unsigned transcriptions are preliminary reports and do not represent a medical or legal document CHEST 2 VIEWS 07115 COMPLETE:03/01/20 17:18 KBO 91544 Reason(s): weakness, falls CHEST X-RAY: PA AND LATERAL VIEWS HISTORY: Weakness and falls. FINDINGS: A right jugular Egqe-l-Ncyjvprc with its tip in the right atrium. Lung patricia are clear. The h eart and mediastinum are normal. IMPRESSION: No acute disease. Electronically Reviewed and Signed By Chase Sumner MD , 03/04/20 08:38, [facility] Transcribe Initials: DZ , Transcribe Date: 03/02/20 00:37, Dictation Date: Copy for: [address] [place] [address] REC DISCHARGED Page 1 of 1 Name Value Range Interpretation Code Description Data Ynes rce(s) Supporting Document(s) ID Date Data Source [id number] 03/04/2020 08:37:00 [place] [address] PHONE: [phone] FAX: [phone] Name .................. : USHA Armenta Acct Number.................. : [id number] ROOM. ................. : CCU3 Number ................... : [id number] Stay type ............. : I/P Discharge Date......... ... : Admit Date ......... : 03/01/20 Admit Phys .................... : STERLING OCHOA Date of ....... : 1940 Family Phys ................... : [employer] Phone .................. : [phone] Age ................................ : 79 Film# .................. .:[id number] Sex ................................. : M Unsigned transcriptions are preliminary reports and do not represent a medical or legal document ELBOW COMPLETE LT [id number] COMPLETE:03/01/20 17:18 KBO 58306 Reason(s): Elbow Injury LEFT ELBOW X-RAY: HISTORY: Injury. FINDINGS: There is suggestion of a laceration posterior to the distal humerus. No fractures are seen. Bone mineralization is intact. The articular surfaces are unremarkable. IMPRESSION: Laceration in the soft tissues posterior to the distal humerus. Electronically Reviewed and Signed By Chase Sumner MD , 03/04/20 08:37, [facility] Transcribe Initials: DZ , Transcribe Date: 03/02/20 00:36, Dictation Date: Copy for: 710 [facility] REC DISCHARGED Page 1 of 1 Name Value Range Interpretation Code Description Data Ynes rce(s) Supporting Document(s) ID Date Data Source [id number] 03/04/2020 08:06:00 AM EDT [facility] [place] [address] RESPIRATORY CARE REPORT ==== ---------NAME------- NUMBER SEX AGE ADMIT DISC. XRAY# F/C VONDA CEBALLOS Geovany [id number] M 79 03/01/20 03/02/20683267 M8 I/P DATE OF : 1940 M/R# [id number] PH#: [phone] CCU3 LOCATION: EMERGENCY DEPT [facility] 14585 COMPL ETE:03/02/20 08:39 [facility] [address] PHYSICIAN: STERLING PEREZ [facility] Name Value Range Interpretation Code Description Data Ynes rce(s) Supporting Document(s) ID Date Data Source [id number] 03/02/2020 08:39:00 AM EDT [facility] Name Value Range Interpretation Code Description Data Ynes rce(s) Supporting Document(s) [facility] LIP[facility] Cholesterol [Mass/volume] in Serum or Plasma 112 MG/DL 131 - 200 L [facility] Deprecated Triglyceride [Mass/volume] in Serum or Plasma 63 MG/DL 3 5 - 160 [facility] HDL 50 MG/DL 29 - 86 [facility] Cholesterol in LDL [Mass/volume] in Serum or Plasma by Direc t assay 50 mg/dL 65 - 175 L [facility] Cholesterol.total/Cholesterol in HDL [Mass Ratio] in Serum o r Plasma 2.2 3.4 - 4.9 L [facility] LDL/HDL 1.00 1.00 - 3.55 [facility] CVE RISK CHOL/HDL LDL/HDLMEN: 1/2 AVERAGE 3.43 1.00 AVERAGE 4.97 3.55 2X AVERAGE 9.55 6.25 3X AVERAGE 23.99 7.99WOMEN: 1/2 AVERAGE 3.27 1.47 AVERAGE 4.44 3.22 2X AVERAGE 7.05 5.03 3X AVERAGE 11.04 6.14 ID Date Data Source [id number] 03/02/2020 08:39:00 AM EDT [facility] Name Value Range Interpretation Code Description Data Ynes rce(s) Supporting Document(s) BASIC METABOLIC PANEL [facility] BASIC METABOLIC PANEL Sodium [Moles/volume] in Serum or Plasma 142 mEq/L 134 - 153 [facility] Potassium [Moles/volume] in Serum or Plasma 4.1 mEq/L 3.6 - 5.0 [facility] Chloride [Moles/volume] in Serum or Plasma 105 mEq/L 98 - 107 [facility] Carbon dioxide, total [Moles/volume] in Serum or Plasma 26 MEQ/L 22 - 30 [facility] Glucose [Mass/volume] in Serum or Plasma 84 MG/DL 65 - 110 [facility] BUN 14 MG/DL 7 - 21 [facility] al Creatinine [Mass/volume] in Serum or Plasma 1.7 MG/DL 0.7 - 1.5 H [facility] BUN/CREAT 8 8 - 27 [facility] Calcium [Mass/volume] in Serum or Plasma 8.6 MG/DL 8.4 - 10.2 [facility] Anion gap 3 in Serum or Plasma 11.0 mmol/L 8.0 - 16.0 [facility] AGE 79 yrs [facility] al AFR AMER GFR 50 mL/min [facility] NON-AA GFR 42 mL/min [facility] Male GFR Inter prentation 20-49 yrs >60 mL/min Normal 50-59 yrs >56 mL/min Normal 60-69 yrs >49 mL/min Normal 70-79yrs >42 mL/min Normal 80 and above >35 mL/min Normal Female GFR Interpretation 20-39 yrs >60 mL/min Normal 40-49 yrs >58 mL/min Normal 50-59 yrs >51 mL/min Normal 60-69 yrs >45 mL/min Normal 70-79 yrs >39 mL/min Normal 80 and above >32 mL/min Normal ID Date Data Source [id number] 03/02/2020 08:33:00 AM EDT [facility] Name Value Range Interpretation Code Description Data Ynes rce(s) Supporting Document(s) CBC W/AUTOMATED DIFF [facility] COMPLETE BLOOD COUNT Leukocytes [#/volume] in Blood by Automated count 5.6 10^3/uL 4.2 - 1 1.0 [facility] Erythrocytes [#/volume] in Blood by Automated count 3.97 10^6/uL 4. 50 - 6.30 L [facility] Hemoglobin [Mass/volume] in Blood 10.8 g/dL 14.0 - 16.0 L [facility] Hematocrit [Volume Fraction] of Blood by Automated count 34.5 % 4 1.0 - 51.0 L [facility] Erythrocyte mean corpuscular volume [Entitic volume] by Auto mated count 86.9 fL 80.0 - 94.0 [facility] Erythrocyte mean corpuscular hemoglobin [Entitic mass] by Automated count 27.2 pg 27.0 - 34.0 [facility] Erythrocyte mean corpuscular hemoglobin concentration [Mass/volume] by Automated count 31.3 g/dL 31.0 - 36.0 [facility] Erythrocyte distribution width [Ratio] by Automated count 14.2 % 11.5 - 14.8 [facility] Platelets [#/volume] in Blood by Automated count 206 10^3/uL 150 - 45 0 [facility] Platelet mean volume [Entitic volume] in Blood by Automated count 11.2 fL 7.4 - 10.4 H [facility] Neutrophils/100 leukocytes in Blood by Automated count 46.6 % 37. 0 - 80.0 [facility] Lymphocytes/100 leukocytes in Blood by Manual count 19.6 % 25.0 - 40.0 L [facility] Monocytes/100 leukocytes in Blood by Automated count 9.8 % 3.0 - 8.0 H [facility] Eosinophils/100 leukocytes in Blood by Automated count 22.7 % 0.0 - 7.0 H [facility] Basophils/100 leukocytes in Blood by Automated count 0.9 % 0.0 - 2.0 [facility] %IG 0.4 % 0.0 - 0.0 H [facility] al %NRBC 0.0 % 0.0 - 0.0 [facility] al Neutrophils [#/volume] in Blood by Automated count 2.61 10^3/uL 2.00 - 6.90 [facility] Lymphocytes [#/volume] in Blood by Automated count 1.10 10^3/uL 0.60 - 3.40 [facility] Monocytes [#/volume] in Blood by Automated count 0.55 10^3/uL 0.00 - 0.90 [facility] Eosinophils [#/volume] in Blood by Automated count 1.27 10^3/uL 0.00 - 0.70 H [facility] Basophils [#/volume] in Blood by Automated count 0.05 10^3/uL 0.00 - 0.20 [facility] #IG 0.02 10^3/uL 0.00 - 0.10 [facility] #NRBC 0.00 10^3/uL 0.00 - 0.00 [facility] MANUAL DIFF NOT INDICATED [facility] RBC MORPH NOT INDICATED [facility] ID Date Data Source [id number] 03/01/2020 03:42:00 PM EDT [facility] 1 OrderSheet [facility] Emergency Department [address] [place] [address] Phone #: ext- [phone] 03/01/2020 15:41 Patient: LIN MCRAE Sex: M : 1940 Age: 79yWEIGHT:74.8 kg (S) HEIGHT:65 inches (S) BMI:27.5ALLERGIES: NoneCHIEF COMPLAINT: slippedDIAGNOSIS: Fall, Renal impairmentLAB ORDERSOrder Description Priority Entered Acknowledged InitialedCBC w Diff STAT 16:17 03/01/2020 16:25 Justin Valle RN, M.D.;CMP STAT 16:17 03/01/2020 16:25 Justin Valle RN, M.D.;PT/PTT STAT 16:17 03/01/2020 16:25 Justin Valle RN, M.D.;Troponin-T STAT 16:17 03/01/2020 16:26 Justin Valle RN, M.D.;Magnesium STAT 16:17 03/01/2020 16:26 Justin Valle RN, M.D.;TSH STAT 16:17 03/01/2020 16:26 Justin Valle RN, M.D.;Folic Acid STAT 16:17 03/01/2020 16:26 Justin Valle RN, M.D.;Vitamin B12 STAT 16:17 03/01/2020 16:26 Justin Valle RN, M.D.;Ferritin STAT 16:17 03/01/2020 16:26 Justin Valle RN, M.D.;Iron Binding STAT 16:17 03/01/2020 16:26 TerryCapacity Justin Perez RN, M.D.;Iron, Serum STAT 16:17 03/01/2020 16:26 Beni 2 OrderSheet [facility] Emergency Department [address] [place] [address] Phone #: ext- [phone] 03/01/2020 15:41 Patient: LIN MCRAE Sex: M : 1940 Age: 79y Justin Perez RN, M.D.;Urinalysis (Clean STAT 21:13 03/01/2020Catch) Justin Perez M.D.;DIAGNOSTIC STUDY ORDERSOrder Description Priority Entered Acknowledged InitialedChest 2 View STAT 16:17 03/01/2020 16:26 Beni(Oxygen?(No)) Justin Perez RN, M.D.; Reason for Study: weakness, fallsCT Head W/O Cont STAT 16:18 03/01/2020 16:26 Beni(Oxygen?(No)) Justin Perez RN, M.D.; Reason for Study: multiple fallsElbow Complete STAT 16:19 2019 16:26 TerryLeft (Oxygen?(No)) Justin Perez RN, M.D.; Reason for Study: Elbow InjuryMEDICATION/IV/DRIP/FLUID ORDERSOrder Description Priority Entered Acknowledged AyibeismiC9JI IV : 100 16:19 03/01/2020 17:52 TerrymL/hr Justin Perez RN, M.D.;Tdap IM 0.5 mL 16:19 03/01/2020 16:53 Justin Valle RN, M.D.;GENERAL ORDERSOrder Description Priority Entered Acknowledged InitialedBlood Pressure 16:17 03/01/2020 16:25 Justin Landeros RN, M.D.;Stripe Matcher 16:17 03/01/2020 16:25 Beni(continuous) Justin Perez RN, M.D.;EKG 16:17 03/01/2020 16:25 Justin Valle RN, M.D.;NPO 16:17 03/01/2020 16:25 Justin Valle RN 3 OrderSheet [facility] Emergency Department [address] [place] [address] Phone #: ext- [phone] 03/01/2020 15:41 Patient: LIN MCRAE Sex: M : 1940 Age: 79y M.D.;Obtain Old EKG 16:17 03/01/2020 16:25 Justin Valle RN, M.D.;Obtain Old Records 16:17 03/01/2020 16:25 Justin Valle RN, M.D.;Oxygen titrate to 16:17 03/01/2020 16:25 Beni92Justin Barragan RN, M.D.;Pulse oximeter 16:17 03/01/2020 16:25 Beni(Continuous) Justin Perez RN, M.D.;Saline Lock 16:17 03/01/2020 16:52 Justin Valle RN, M.D.;Vitals 16:17 03/01/2020 16:25 Justin Valle RN, M.D.;Consult - 17:44 03/01/2020 17:52 BeniHospitalist Justin Perez RN, M.D.;[Electronically signed by Lin Arriaga R.N. (21:30 03/01/2020)][Electronically signed by Justin Perez M.D. (21:31 03/01/2020)][Electronically locked by Lin Arriaga R.N. (21:30 03/01/2020)] Name Value Range Interpretation Code Description Data Ynes rce(s) Supporting Document(s) ID Date Data Source [id number] 03/01/2020 03:42:00 PM EDT [facility] 1 Medication Reconciliation Report [facility] Emergency Department [address] [place] [address] Phone #: ext- [phone] 03/01/2020 15:41 Patient: LIN MCRAE Sex: M : 1940 Age: 79yWeight: 74.8 kgHeight/Length: 65 in.BMI: 27.5ALLERGIES: NoneThe patient's Home Medications are listed below:THE FOLLOWING MEDICATIONS NEED TO BE RECONCILED: Aspirin Oral (81 mg), daily Gabapentin Oral 100 mg, 2x a day Lasix Oral 40 mg, daily levETIRAcetam Oral 500 mg, 2x a day Magnesium Oxide Oral (400 (241.3 Mg) mg), 2x a day Omeprazole Oral 40 mg, daily Potassium Chloride Oral 20 meq, 2x a day Singulair Oral 10 mg, dailyThe source(s) of the original Home Medication information:Not obtained.The following Medications were given to the patient in the Emergency Department:TDAP [IM] IM 0.5 mL, administered: 03/01/2020 4:53:00 PMD5NS IV IV Fluids bolus 0, then 100 mL/hr, administered: 03/01/2020 4:52:00 PMThe following Medications were prescribed to the patient:None. Name Value Range Interpretation Code Description Data Ynes rce(s) Supporting Document(s) ID Date Data Source [id number] 03/01/2020 03:42:00 PM EDT [facility] 1 Medication Administration Record [facility] Emergency Department [address] [place] [address] Phone #: ext- [phone] 03/01/2020 15:41 Patient: LIN MCRAE Sex: M : 1940 Age: 79yWeight: 74.8 kgHeight/Length: 65 inBMI: 27.5ALLERGIES: None Date/Time Medication Administered Medication OrderedStart D5NS IV D5NS IV : 100 mL/hr16:52 03/01/2020 Dose: IV FluidsEliasry RAYNE Vargas Rate: 100 mL/hr over 5 hour(s)---- Dispensed: 1000 mL bagStop Site: #1 [id number]:10 03/01/2020Lin Arriaga R.N.Given TDAP [IM] Tdap IM 0.5 mL16:53 03/01/2020 Dose: 0.5 mL Leslie Vargas RN Name Value Range Interpretation Code Description Data Ynes rce(s) Supporting Document(s) ID Date Data Source [id number] 03/01/2020 03:42:00 PM EDT [facility] 1 General Instructions [facility] Emergency Department [address] [place] [address] Phone #: ext- [phone] 03/01/2020 15:41 Patient: LIN MCRAE Sex: M : 1940 Age: 79yMild chronic renal insufficiency.Fall on the same level by tripping (Frequent Falls).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 03/01/2020 21:31) Name Value Range Interpretation Code Description Data Ynes rce(s) Supporting Document(s) ID Date Data Source [id number] 03/01/2020 03:42:00 PM EDT [facility] 1 Clinical Report - Nurses [facility] Emergency Department [address] [place] [address] Phone #: ext- [phone] 03/01/2020 15:41 Patient: LIN MCRAE Sex: M : 1940 Age: 79yTRIAGEArrived by EMS. 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 ( presents via amb. with c/o fall whileat home, went to sit down and states he missed the chair, has skin tear on L elbow, home health nursecalled and states that pt is unable to go home due to safety concerns, multiple falls, pt is blind, livesalone.).Triage time: 15:46 03/01/2020. Acuity: LEVEL 3.Chief Complaint: FALL. Tripped while walkingAlert. No acute distress.Occurred at home. No loss of consciousness. No alteration in mental status.Treatment CHILDCARE PROVIDER:None.SEPSIS SCREEN: SIRS Screen negative. Sepsis Screen negative. No suspected or confirmed signs ofinfection present. --15:59 03/01/20 Arianna Jimenez RN15:46 03/01/20. BP: 137/74. MAP: 95. HR: 72. RR: 18. O2 saturation: 100%. Temp: 98.7 F. Pain levelnow: 0/10. --15:59 03/01/20 Arianna Jimenez RN.Weight: 74.8 kg stated. Height/Length: 65 inches Per Patient. BMI: 27.5. --15:54 03/01/20 Arianna Jimenez RN.MedicationsSingulair Oral 10 mg, daily. --16:11 03/01/20 Arianna Jimenez, RAYNE Omeprazole Oral 40 mg, daily. --16:12 03/01/20 Arianna Jimenez RN Lasix Oral 40 mg, daily. --16:12 03/01/20 Arianna Jimenez RN levETIRAcetam Oral 500 mg, 2x a day. --16:12 03/01/20 Arianna Jimenez RN Potassium Chloride Oral 20 meq, 2x a day. --16:13 03/01/20 Arianna Jimenez RN Magnesium Oxide Oral (Tablet 400 (241.3 Mg) mg), 2x a day. --16:13 03/01/20 Arianna Jimenez RN Aspirin Oral (Tablet Delayed Release 81 mg), daily. --16:15 03/01/20 Arianna Jimenez RN Gabapentin Oral 100 mg, 2x a day. --16:15 03/01/20 Arianna Jimenez RN.AllergiesNone. --15:52 03/01/20 Arianna Jimenez RN.PROBLEMS:Myocardial Infarction.CVA - Cerebrovascular Accident.Leukemia.Cancer. --15:54 03/01/20 Arainna Jimenez RN 2 Clinical Report - Nurses [facility] Emergency Department [address] [place] [address] Phone #: ext- [phone] 03/01/2020 15:41 Patient: LIN MCRAE Sex: M : 1940 Age: 79y Blind. --16:17 03/01/20 Arianna Jimenez RN. ADDITIONAL SURGERIES: Appendectomy. Testis excision. --15:54 03/01/20 Arianna Jimenez, RAYNE. History SOCIAL HX: Former smoker. No alcohol use or drug use. He was offered HIV testing but declined and hepatitis C testing but declined. He has not traveled outside the [place] Infectious disease exposure: No infectious disease exposure. SELF HARM ASSESSMENT: Self harm assessment was performed. The patient answered "no" to the question(s) "Have you recently felt down, depressed, or hopeless?". ABUSE ASSESSMENT: No report of abuse. NUTRITIONAL RISK ASSESSMENT: The nutritional risk assessment revealed no deficiencies. FUNCTIONAL ASSESSMENT: Functional assessment: no impairments noted. LEARNING NEEDS ASSESSMENT: The learning needs assessment revealed no barriers. FALL RISK ASSESSMENT: Fall risk assessment completed. Risk factors identified include dizziness and patient medications, age greater than 65 years, history of fall, diagnosis of stroke and impairment of mobility and cognition. Fall interventions initiated. Patient placed on stretcher. Side rails up x2. Bed in low position. Brakes on. SKIN INTEGRITY ASSESSMENT: Skin integrity risk assessment completed. No skin integrity risk identified. --15:59 03/01/20 Arianna Jimenez RN.PHYSICAL ASSESSMENTTo room via stretcher.GENERAL / NEURO / PSYCH: Alert. Oriented X 4. Appears in no acute distress.HEENT: Head non-tender.RESPIRATORY: Respirations not labored. Chest nontender. Breath sounds within normal limits.CVS: Pulses within normal limits. Capillary refill less than 2 seconds.GI / : Abdomen soft and nontender.EXTREMITIES: Right shoulder: (circluar red spot on right shoulder). Left elbow: (skin tear).SKIN: Skin is warm and dry. --16:12 03/01/20 Beni Vargas RN.NURSING PROGRESS NOTESReassurance given. Two patient identifiers checked. Bed placed in lowest position. Brakes of bed on.Patient ready for evaluation. --15:59 03/01/20 Arianna Jimenez RN 3 Clinical Report - Nurses [facility] Emergency Department [address] [place] [address] Phone #: ext- [phone] 03/01/2020 15:41 Patient: LIN MCRAE Sex: M : 1940 Age: 79y16:14 03/01/20. Patient gowned. Two patient identifiers checked. Call light placed in reach. Side railsup x 2. Bed placed in lowest position. Brakes of bed on. --16:14 03/01/20 Beni Vargas RN16:44 03/01/2020 Site #1 started via IV using a Midline catheter with an 20g angiocath; one attempt. Blooddrawn: rainbow set. Labeled in the presence of the patient and sent to the lab. Saline lock flushed with 10mL saline. --16:54 03/01/20 Beni Vargas RN16:53 03/01/2020 TDAP IM 0.5 mL given(Lot#: [id number], expiration date: 11/27/2021, Slice Plug Cutter Operator Helper: Dymant). Given in the right deltoid. Allergies verified and confirmed 5 rights. Information reviewed withpatient. --16:53 03/01/20 Beni Vargas RNChecked patient name and birthdate: patient confirmed. Blood samples drawn from the central IV site bynurse per protocol ; labeled in presence of the patient and sent to lab: rainbow set. MediPort accessed.Initial blood discarded. Line flushed with 10 mL normal saline post blood draw (1640). Checked patientname and birthdate: patient confirmed. Clean catch urine collected with return of yellow-colored urine;sample sent to lab for urinalysis. Specimen labeled in the presence of the patient ([id number]). Patienttransported to radiology and CT by stretcher with light technician. (2143). --16:55 03/01/20 Beni Vargas RN16:52 03/01/2020 Started bag #1 1000 mL IV Fluids D5NS IV; at 100 mL/hr over 5 hour(s) via site #1 via IVpump. Allergies verified and confirmed 5 rights. IV patency established. IV site checked: no pain, redness,or swelling. IV flushed thoroughly pre- and post-medication administration. Information reviewed withp atient. --17:52 03/01/20 Beni Vargas RNEKG time: (17:18 03/01/2020). EKG was performed by a nurse and shown to the ED physician. Patientreturned from CT by stretcher with light technician. (6916). --17:53 03/01/20 Beni Vargas RNLeft elbow: applied sterile dressing consisting of telfa pad, following the application of antibiotic ointment(bacitracin). (wrapped with cobain). --18:01 03/01/20 Arianna Jimenez RN( 6010 pt requesting coffee admission orders are for regular diet coffee offered). --18:24 03/01/20 ARYNE Bucio( 1830 tray arrived and offered to pt). --18:32 03/01/20 Beni Vargas RN16:32 03/01/20. BP: 125/73. MAP: 90. HR: 59. O2 saturation: 100% on room air. --18:33 03/01/20 RAYNE Bucio18:15 03/01/20. BP: 131/71. MAP: 91. HR: 61. O2 saturation: 98% on room air. --18:33 03/01/20 RAYNE Bucio( 1900 pt asking when he would be admitted and was told after evening shift change roughly 30 minutes).--19:06 03/01/20 Beni Vargas RN 4 Clinical Report - Nurses [facility] Emergency Department [address] [place] [address] Phone #: ext- [phone] 03/01/2020 15:41 Patient: LIN MCRAE Sex: M : 1940 Age: 79y19:00 03/01/20. BP: 95/56. MAP: 69. HR: 77. O2 saturation: 98% on room air. --19:06 03/01/20 RAYNE Bucio19:24 03/01/20. BP: 120/65. MAP: 83. HR: 77. RR: 16. O2 saturation: 100%. Pain level now: 0/10.--19:26 03/01/20 Lin Arriaga R.N.Reassessment acuity: LEVEL 3. Left elbow dressing (pt removed dressing to left elbow, says he wontleave it on).GENERAL / NEURO / PSYCH: Alert. Oriented X 4.RESPIRATORY: No respiratory distress.CVS: Capillary refill less than 2 seconds.GI / : Abdomen nontender.EXTREMITIES: Neuro-vascular status intact to the extremity. Two patient identifiers checked. Call lightplaced in reach. Side rails up x 2. Bed placed in lowest position. Brakes of bed on. --19:26 03/01/20Lin gutierrez R.N.20:49 03/01/20. BP: 116/61. MAP: 79. HR: 74. RR: 16. O2 saturation: 100%. Temp: 98.3 F. Pain levelnow: 0/10. --20:50 03/01/20 Lin Arriaga R.N.Reassessment acuity: LEVEL 3. The patient reports no complaints and he is calm and resting quietly.Overall patient status is the same- he states feels the same.GENERAL / NEURO / PSYCH: Alert. Oriented X 4.RESPIRATORY: No respiratory distress.CVS: Capillary refill less than 2 seconds.GI / : Abdomen nontender.EXTREMITIES: Neuro-vascular status intact to the extremity. Two patient identifiers checked. Call lightplaced in reach. Side rails up x 2. Bed placed in lowest position. Brakes of bed on. --20:50 03/01/20Lin gutierrez R.N.21:00 03/01/2020 TDAP IM Response: no adverse reaction. --21:29 03/01/20 Lin Arriaga R.N.21:10 03/01/2020 IV Fluids D5NS IV via IV site #1 Discontinue d: infused upon admission. Total amountinfused: 450 mL. IV patency established. IV site checked: no pain, redness, or swelling. IV flushedthoroughly. --21:29 03/01/20 Lin Arriaga R.N.Intake Speluj66:10 03/01/20. Urine output: 200 mL. --18:23 03/01/20 Beni Vargas RN18:10 03/01/20. Urine output: 200 mL. --18:23 03/01/20 Beni Vargas RN Correction --18:23 03/01/20Beni Vargas RN18:03/01/20. Urine output: 100 mL. --18:22 03/01/20 Beni Vargas RN.DISPOSITION / DISCHARGE 5 Clinical Report - Nurses [facility] Emergency Department [address] [place] [address] Phone #: ext- [phone] 03/01/2020 15:41 [id number] Sex[facility] : 1940 Age: 79y No learning barriers present. Discharge instructions provided and reviewed with the patient. Reviewed warnings. Reviewed medication(s). Treatments reviewed. Reviewed referrals. Patient verbalized unde rstanding. Written instructions provided in Kazakh. Admitted. Report was given to a nurse. Report included patient's care, condition, vital signs, labs, blood products and medications. No questions were asked. Report was acknowledged and care was transferred. (Christy MCLAIN). Bed obtained and ready. Patient has no belongings. --21:05 03/01/20 Lin Arriaga R.N. 21:04 03/01/20. BP: 116/61. MAP: 79. HR: 74. RR: 16. O2 saturation: 100%. Temp: 98.3 F. Pain level now: 0/10. --21:05 03/01/20 Lin Arriaga R.N. Departure time: 21:15 03/01/2020. --21:30 03/01/20 Lin Arriaga R.N.Locked/Released at 03/01/2020 21:30 by Lin Arriaga R.N. Name Value Range Interpretation Code Description Data Ynes rce(s) Supporting Document(s) ID Date Data Source [id number] 03/01/2020 03:42:00 PM EDT [facility] 1 Clinical Report - Physicians/Mid Levels [facility] Emergency Department [address] [place] [address] Phone #: ext- [phone] 03/01/2020 15:41 Patient: LIN MCRAE Sex: Geovany : 1940 Age: 79y Time Seen: 15:53 03/01/2020; initial patient contact. Arrived- By ambulance. Historian- patient. Disposition decision: 17:42 03/01/2020.HISTORY OF PRESENT ILLNESS Chief Complaint: FALL. Slipped. (while sitting down). Location of injuries- left elbow. The injury occurred just prior to arrival. Occurred at home. Fell: The patient denies pain. No blow to the head, neck pain, loss of consciousness or seizure. Not dazed. (pt had CVA 2-3 weeks ago and is partially blind both eyes, lives alone now, fell on his back while sitting down, missed chair, skin tear left elbow; his home nurse called 911 for him to be placed in [place] because of fall risk and danger to himself, being alone at home and blind; and falling more lately).REVIEW OF SYSTEMSNo numbness, dizziness, hearing loss, chest pain or difficulty breathing. No weakness, headache,nausea, abdominal pain or fever. No vomiting, urinary problems or depression. He has had loss of visionin the right eye and left eye. The vision loss in the right eye is incomplete and left eye is incomplete. Hesustained small skin laceration to the left arm. He has no pain on weight bearing. All other systemsreviewed and are negative.PAST HISTORYSee nurses notes. Tetanus immunization status is unknown. Problems: Blind. Myocardial Infarction. CVA - Cerebrovascular Accident. Leukemia. Cancer. Additional Surgeries: Appendectomy. Knee replacement, b/l. Mastectomy. Testis excision. Medications: 2 Clinical Report - Physicians/Mid Levels [facility] Emergency Department [address] [place] [address] Phone #: ext- [phone] 03/01/2020 15:41 Patient: LIN MCRAE Sex: M : 1940 Age: 79y Gabapentin Oral 100 mg, 2x a day. Aspirin Oral (Tablet Delayed Release 81 mg), daily. Magnesium Oxide Oral (Tablet 400 (241.3 Mg) mg), 2x a day. Potassium Chloride Oral 20 meq, 2x a day. levETIRAcetam Oral 500 mg, 2x a day. Lasix Oral 40 mg, daily. Omeprazole Oral 40 mg, daily. Singulair Oral 10 mg, daily. Allergies: None.SOCIAL HISTORYFormer smoker. No alcohol use or drug use.ADDITIONAL NOTESThe nursing notes have been reviewed with agreement regarding the chief complaint, HPI, ROS, PMH andpatient medications and allergies.PHYSICAL EXAMVital Signs: 03/01/2020 15:46 BP: 137/74. MAP: 95. HR: 72. RR: 18. O2 saturation: 100%. Temp: 98.7 F.Pain level now: 0/10. Have been reviewed. Oxygen saturation normal.Appearance: Alert. Oriented X3. No acute distress.Head: Head non-tender. No swelling of head.Eyes: Pupils equal, round and reactive to light. EOM intact. (pt states he's blind both eyes x 2-3 weeks,sees shadows, since CVA).ENT: No dental injury. Pharynx normal.Neck: Painless ROM. Non-tender.CVS: Heart sounds normal. Pulses normal.Respiratory: Painless inspiration. Breath sounds normal. Chest nontender.Abdomen: No visible injury. Soft and nontender. Bowel sounds normal. No organomegaly. No mass.Femoral pulses equal.Back: No tenderness. ROM normal.Skin: Skin warm and dry. Normal skin color. Normal skin turgor.Extremities: Normal inspection. Left elbow: superficial 2.0 cm laceration with controlled bleeding andsubcutaneous avulsion with controlled bleeding located in the area of the lateral epicondyle. Neurovascularintact distally. (skin tear). No tenderness, ecchymosis, deformity or open wound communicating with jointspace. No joint effusion or limitation in ROM. Pelvis stable. No lower extremity edema.Neuro: Oriented X 3. No motor deficit. No sensory deficit. Reflexes normal.LABS, X-RAYS, AND EKGEKG: No acute process. No acute ischemia. Normal EKG. Normal sinus rhythm. Rate: 63/min.Normal ST and T waves. Prior EKG unavailable. The study has been interpreted contemporaneously byme. The EKG appears to be a good tracing. Interpretation time: 17:18 03/01/2020.Chest X-ray: No acute disease. Views: PA and lateral. Technique: good. The X-rays were interpreted 3 Clinical Report - Physicians/Mid Levels [facility] Emergency Department [address] [place] [address] Phone #: ext- [phone] 03/01/2020 15:41 Patient: LIN MCRAE Sex: M : 1940 Age: 79yby the radiologist and contemporaneously by me. Interpretation time: 17:31 03/01/2020.Lt Elbow X-ray: No fracture. No bony lesion. Views: 2 view elbow series. Technique: good. TheX-rays were interpreted by the radiologist. Interpretation time: 17:30 03/01/2020.CT Head: No acute changes. Head CT performed without contrast. The study was interpreted by theradiologist. Interpretation time: 17:12 03/01/2020.Laboratory Tests: Laboratory tests have been ordered, with results reviewed and considered in themedical decision making process.Elbow Complete Left: (NATHANAEL: 03/01/2020 16:19) ( MsgRcvd 03/01/2020 17:18) In ProgressELBOW COMPLETE LTReason(s): Elbow InjuryTRANSPORTATION: WC IV? O2? Oxygen?(No) Room: EDCT Head W/O Cont: (NATHANAEL: 03/01/2020 16:18) ( MsgRcvd 03/01/2020 17:18) In ProgressCT HEAD W/O CONTRASTReason(s): multiple fallsTRANSPORTATION: WC IV? O2? Oxygen?(No) Room: EDCBC w Diff: (NATHANAEL: 03/01/2020 16:40) ( MsgRcvd 03/01/2020 17:07) Final results Test Result Flag Units (Reference) CBC W/AUTOMATED DIFF COMPLETE BLOOD COUNT WBC 7.2 10/uL (4.2 - 11.0) RBC 3.76 L 10/uL (4.50 - 6.30) HEMOGLOBIN 10.3 L g/dL (14.0 - 16.0) HEMATOCRIT 32.7 L % (41.0 - 51.0) MCV 87.0 fL (80.0 - 94.0) MCH 27.4 pg (27.0 - 34.0) MCHC 31.5 g/dL (31.0 - 36.0) RDW 14.3 % (11.5 - 14.8) PLATELETS 200 10/uL (150 - 450) MPV 10.8 H fL (7.4 - 10.4) NEUT 50.0 % (37.0 - 80.0) L YMPH 20.1 L % (25.0 - 40.0) MONO 10.3 H % (3.0 - 8.0) EOS 18.2 H % (0.0 - 7.0) BASO 0.8 % (0.0 - 2.0) %IG 0.6 H % (0.0 - 0.0) %NRBC 0.0 % (0.0 - 0.0) #NEUT 3.58 10/uL (2.00 - 6.90) #LYMPH 1.44 10/uL (0.60 - 3.40) #MONO 0.74 10/uL (0.00 - 0.90) #EOS 1.30 H 10/uL (0.00 - 0.70) #BASO 0.06 10/uL (0.00 - 0.20) #IG 0.04 10/uL (0.00 - 0.10) #NRBC 0.00 10/uL (0.00 - 0.00) MANUAL DIFF NOT INDICATED RBC MORPH NOT INDICATEDCMP: (NATHANAEL: 03/01/2020 16:40) ( MsgRcvd 03/01/2020 17:27) Final results Test Result Flag Units (Reference) COMPREHENSIVE METABOLIC PANEL COMPREHENSIVE METABOLIC PANEL 4 Clinical Report - Physicians/Mid Levels [facility] Emergency Department [address] [place] [address] Phone #: [phone] ext- [phone] 03/01/2020 15:41 Patient: LIN MCRAE Sex: M : 1940 Age: 79y SODIUM 137 mEq/L (134 - 153) POTASSIUM 4.2 mEq/L (3.6 - 5.0) CHLORIDE 100 mEq/L (98 - 107) CO2 26 MEQ/L (22 - 30) GLUCOSE 98 MG/DL (65 - 110) BUN 18 MG/DL (7 - 21) CREATININE 2.3 H MG/DL (0.7 - 1.5) BUN/CREAT 8 (8 - 27) TOTAL PROTEIN 5.7 L G/DL (6.3 - 8.2) ALBUMIN 4.1 G/DL (3.9 - 5.0) GLOBULIN 1.6 L GM/DL (2.4 - 3.2) A/G RATIO 2.6 H (0.8 - 2.0) CALCIUM 9.0 MG/DL (8.4 - 10.2) TOTAL BILI <0.7 MG/DL (0.2 - 1.3) ALKALINE PHOS 172 H U/L (38 - 126) SGOT/AST 21 U/L (5 - 40) SGPT/ALT 11 U/L (7 - 56) ANION GAP 11.0 mmol/L (8.0 - 16.0) AGE 79 yrs NON-AA GFR 29 mL/min AFR AMER GFR 35 mL/min Male GFR Interprentation 20-49 yrs >60 mL/min Hxgzer88-25 yrs >56 mL/min Normal 60-69 yrs >49 mL/min Normal 70-79yrs>42 mL/min Normal 80 and above >35 mL/min Normal Female GFRInterpretation 20-39 yrs >60 mL/min Normal 40-49 yrs >58 mL/minNormal 50-59 yrs >51 mL/min Normal 60-69 yrs >45 mL/min Qqcqdu29-00 yrs >39 mL/min Normal 80 and above >32 mL/min NormalPT/PTT: (NATHANAEL: 03/01/2020 16:40) ( MsgRcvd 03/01/2020 17:04) Final results Test Result Flag Units (Reference) PROTIME 14.0 SECONDS (11.0 - 15.5) INR 1.07 (0.93 - 1.23) PTT 33.2 SECONDS (24.8 - 36.7) \\BLDo\\INR INTERPRETATION\\BLDx\\ Therapeutic range for Coumadin andrelated oral anticoagulants. -International Normalized Ratio (INR): 2.0 - 3.0 for VenousThrombosis, Pulmonary Embolus, Tissue heart valves, Acute RI Atrial Fibrillation, Valvular heart diseaseand recurrent Systemic Embolism. -International Normalized Ratio (INR): 2.5 - 3.5 forMechanical Prosthetic valve.Troponin-T: (NATHANAEL: 03/01/2020 16:40) ( [facility] 03/01/2020 17:24) Final results Test Result Flag Units (Reference) TROPONIN T <0.01 NG/ML (0.00 - 0.10) TROPONIN T0.1 ng/ml Recommended as the clinical threshold value forTroponin T.Magnesium: (NATHANAEL: 03/01/2020 16:40) ( [facility] 03/01/2020 17:27) Final results Test Result Flag Units (Reference) MAGNESIUM 2.4 H MG/DL (1.7 - 2.2)Iron Binding Capacity: (NATHANAEL: 03/01/2020 16:40) ( [facility] 03/01/2020 17:27) Final results Test Result Flag Units (Reference) IRON 22 L UG/DL (42 - 135) UIBC 275 UG/DL (112 - 347) TIBC 297 ug/dL (250 - 450) IRON SAT 7 % 5 Clinical Report - Physicians/Mid Levels [facility] Emergency Department [address] [place] [address] Phone #: ext- [phone] 03/01/2020 15:41 Patient: LIN MCRAE [facility]#: [id number] Sex: M : 1940 Age: 79y Iron, Serum: (NATHANAEL: 03/01/2020 16:17) ( MsgRcvd 03/01/2020 16:22) Canceled Chest 2 View: (NATHANAEL: 03/01/2020 16:17) ( MsgRcvd 03/01/2020 17:18) In Progress CHEST 2 VIEWS Reason(s): weakness, falls TRANSPORTATION: IV? O2? Oxygen?(No) Room: ED.PROGRESS AND PROCEDURESCourse of Care: 17:38 03/01/20. workup all in and reviewed, incl. CT head w/o, CXR, lt elbow x-rays; pthas mild renal insufficiency, mild anemia; pt is partially blind from recent CVA and is an unsafe d/c homebecause he lives alone and falls frequently; case discussed w Sergio Simmons, hospitalist, and will admit; pt willalso benefit from inpatient PT. Critical care performed (60 minutes). Time is exclusive of separately billable procedures. Time includes: direct patient care, patient reassessment, coordination of patient care, interpretation of data (laboratory data and chest xrays), medical consultation and documentation of patient care- see progress notes. Patient counseled in person regarding the patient's stable condition, test results, diagnosis and need for admission. Patient agrees with plan of care. Disposition: Condition: good and stable. Admit decision based on need for further evaluation, observation, IV therapy and medications and stabilization of condition.CLINICAL IMPRESSION Mild chronic renal insufficiency. Fall on the same level by tripping (Frequent Falls). 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 03/01/2020 21:31) Name Value Range Interpretation Code Description Data Ynes rce(s) Supporting Document(s) ID Date Data Source [id number] 03/01/2020 09:25:00 PM EDT [facility] Name Value Range Interpretation Code Description Data Ynes rce(s) Supporting Document(s) URINALYSIS [facility] vanessa URINALYSIS SOURCE R [facility] COLOR yellow NORMAL: Yellow [facility] CLARITY clear NORMAL: Clear [facility] Specific gravity of Urine by Test strip 1.005 1.001 - 1.030 [facility] pH 6 5 - 9 [facility] al Glucose [Mass/volume] in Urine by Test strip NORM NORMAL: Negat [facility] Bilirubin.total [Presence] in Urine by Test strip NEG NORMAL: Negative [facility] Ketones [Presence] in Urine by Test strip NEG NORMAL: Negative [facility] Protein [Mass/volume] in Urine by Test strip NEG NORMAL: Negat [facility] Nitrite [Presence] in Urine by Test strip NEG NORMAL: Negative [facility] BLOOD NEG NORMAL: Negative [facility] Leukocyte esterase [Presence] in Urine by Test strip NEG GINA L: Negative [facility] Urobilinogen [Mass/volume] in Urine by Test strip NOR less reji n 1.0 mg/dL [facility] MICROSCOPIC Not Indicate [facility] ID Date Data Source [id number] 03/01/2020 06:06:00 PM EDT [facility] Name Value Range Interpretation Code Description Data Ynes rce(s) Supporting Document(s) Ferritin [Mass/volume] in Serum or Plasma 34.2 ng/mL 5.0 - 244 [facility] ID Date Data Source [id number] 03/01/2020 06:06:00 PM EDT [facility] Name Value Range Interpretation Code Description Data Ynes rce(s) Supporting Document(s) Cobalamin (Vitamin B12) [Mass/volume] in Serum or Plasma 1034 PG /ML 232 - 1245 [facility] ID Date Data Source [id number] 03/01/2020 06:06:00 PM EDT [facility] Name Value Range Interpretation Code Description Data Ynes rce(s) Supporting Document(s) Folate [Mass/volume] in Serum or Plasma 6.5 NG/ML 5.6 - 45.8 [facility] ID Date Data Source [id number] 03/01/2020 06:06:00 PM EDT [facility] Name Value Range Interpretation Code Description Data Ynes rce(s) Supporting Document(s) Thyrotropin [Units/volume] in Serum or Plasma by Detec tion limit <= 0.05 mIU/L 3.35 uIU/mL 0.47 - 5.01 [facility] ID Date Data Source [id number] 03/01/2020 05:27:00 PM EDT [facility] Name Value Range Interpretation Code Description Data Ynes rce(s) Supporting Document(s) Iron [Mass/volume] in Serum or Plasma 22 UG/DL 42 - 135 L [facility] Iron binding capacity.unsaturated [Mass/volume] in Serum or Plasma 275 UG/DL 112 - 347 [facility] Iron binding capacity [Mass/volume] in Serum or Plasma 297 ug/dL 250 - 450 [facility] Iron saturation [Mass Fraction] in Serum or Plasma 7 % [facility] ID Date Data Source [id number] 03/01/2020 05:27:00 PM EDT [facility] Name Value Range Interpretation Code Description Data Ynes rce(s) Supporting Document(s) Magnesium [Mass/volume] in Serum or Plasma 2.4 MG/DL 1.7 - 2.2 H [facility] ID Date Data Source [id number] 03/01/2020 05:27:00 PM EDT [facility] Name Value Range Interpretation Code Description Data Ynes rce(s) Supporting Document(s) COMPREHENSIVE METABOLIC PANEL [facility] COMPREHENSIVE METABOLIC PANEL Sodium [Moles/volume] in Serum or Plasma 137 mEq/L 134 - 153 [facility] Potassium [Moles/volume] in Serum or Plasma 4.2 mEq/L 3.6 - 5.0 [facility] Chloride [Moles/volume] in Serum or Plasma 100 mEq/L 98 - 107 [facility] Carbon dioxide, total [Moles/volume] in Serum or Plasma 26 MEQ/L 22 - 30 [facility] Glucose [Mass/volume] in Serum or Plasma 98 MG/DL 65 - 110 [facility] BUN 18 MG/DL 7 - 21 [facility] Creatinine [Mass/volume] in Serum or Plasma 2.3 MG/DL 0.7 - 1.5 H [facility] BUN/CREAT 8 8 - 27 [facility] al Protein [Mass/volume] in Serum or Plasma 5.7 G/DL 6.3 - 8.2 L [facility] Albumin [Mass/volume] in Serum or Plasma 4.1 G/DL 3.9 - 5.0 [facility] Globulin [Mass/volume] in Serum by calculation 1.6 GM/DL 2.4 - 3.2 L [facility] A/G RATIO 2.6 0.8 - 2.0 H [facility] al Calcium [Mass/volume] in Serum or Plasma 9.0 MG/DL 8.4 - 10.2 [facility] Bilirubin.total [Mass/volume] in Serum or Plasma <0.7 MG/DL 0.2 - 1.3 [facility] Alkaline phosphatase [Enzymatic activity/volume] in Serum or Plasma 172 U/L 38 - 126 H [facility] Aspartate aminotransferase [Enzymatic activity/volume] in Serum or Plasma 21 U/L 5 - 40 [facility] Alanine aminotransferase [Enzymatic activity/volume] in Seru m or Plasma 11 U/L 7 - 56 [facility] Anion gap 3 in Serum or Plasma 11.0 mmol/L 8.0 - 16.0 [facility] AGE 79 yrs [facility] al NON-AA GFR 29 mL/min [facility] AFR AMER GFR 35 mL/min [facility] Male GFR In terprentation 20-49 yrs >60 mL/min Normal 50-59 yrs >56 mL/min Normal 60-69 yrs >49 mL/min Normal 70-79yrs >42 mL/min Normal 80 and above >35 mL/min Normal Female GFR Interpretation 20-39 yrs >60 mL/min Normal 40-49 yrs >58 mL/min Normal 50-59 yrs >51 mL/min Normal 60-69 yrs >45 mL/min Normal 70-79 yrs >39 mL/min Normal 80 and above >32 mL/min Normal ID Date Data Source [id number] 03/01/2020 05:24:00 PM EDT [facility] Name Value Range Interpretation Code Description Data Ynes rce(s) Supporting Document(s) TROPONIN T <0.01 NG/ML 0.00 - 0.10 [facility] TROPONIN T0.1 ng/ml Recommended as the c linical threshold value Sharitan T. ID Date Data Source [id number] 03/01/2020 05:07:00 PM EDT [facility] Name Value Range Interpretation Code Description Data Ynes rce(s) Supporting Document(s) CBC W/AUTOMATED DIFF [facility] COMPLETE BLOOD COUNT Leukocytes [#/volume] in Blood by Automated count 7.2 10^3/uL 4.2 - 1 1.0 [facility] Erythrocytes [#/volume] in Blood by Automated count 3.76 10^6/uL 4. 50 - 6.30 L [facility] Hemoglobin [Mass/volume] in Blood 10.3 g/dL 14.0 - 16.0 L [facility] Hematocrit [Volume Fraction] of Blood by Automated count 32.7 % 4 1.0 - 51.0 L [facility] Erythrocyte mean corpuscular volume [Entitic volume] by Auto mated count 87.0 fL 80.0 - 94.0 [facility] Erythrocyte mean corpuscular hemoglobin [Entitic mass] by Automated count 27.4 pg 27.0 - 34.0 [facility] Erythrocyte mean corpuscular hemoglobin concentration [Mass/volume] by Automated count 31.5 g/dL 31.0 - 36.0 [facility] Erythrocyte distribution width [Ratio] by Automated count 14.3 % 11.5 - 14.8 [facility] Platelets [#/volume] in Blood by Automated count 200 10^3/uL 150 - 45 0 [facility] Platelet mean volume [Entitic volume] in Blood by Automated count 10.8 fL 7.4 - 10.4 H [facility] Neutrophils/100 leukocytes in Blood by Automated count 50.0 % 37. 0 - 80.0 [facility] Lymphocytes/100 leukocytes in Blood by Manual count 20.1 % 25.0 - 40.0 L [facility] Monocytes/100 leukocytes in Blood by Automated count 10.3 % 3.0 - 8.0 H [facility] Eosinophils/100 leukocytes in Blood by Automated count 18.2 % 0.0 - 7.0 H [facility] Basophils/100 leukocytes in Blood by Automated count 0.8 % 0.0 - 2.0 [facility] %IG 0.6 % 0.0 - 0.0 [facility] %NRBC 0.0 % 0.0 - 0.0 [facility] al Neutrophils [#/volume] in Blood by Automated count 3.58 10^3/uL 2.00 - 6.90 [facility] Lymphocytes [#/volume] in Blood by Automated count 1.44 10^3/uL 0.60 - 3.40 [facility] Monocytes [#/volume] in Blood by Automated count 0.74 10^3/uL 0.00 - 0.90 [facility] Eosinophils [#/volume] in Blood by Automated count 1.30 10^3/uL 0.00 - 0.70 H [facility] Basophils [#/volume] in Blood by Automated count 0.06 10^3/uL 0.00 - 0.20 [facility] #IG 0.04 10^3/uL 0.00 - 0.10 [facility] #NRBC 0.00 10^3/uL 0.00 - 0.00 [facility] MANUAL DIFF NOT INDICATED [facility] RBC MORPH NOT INDICATED [facility] spital ID Date Data Source [id number] 03/01/2020 05:04:00 PM EDT [facility] Name Value Range Interpretation Code Description Data Ynes rce(s) Supporting Document(s) Prothrombin time (PT) 14.0 SECONDS 11.0 - 15.5 Health system INR in Platelet poor plasma by Coagulation assay 1.07 0.93 - 1. 23 [facility] aPTT in Blood by Coagulation assay 33.2 SECONDS 24.8 - 36.7 [facility] \\BLDo\\INR INTERPRETATION\\BLDx\\ Therapeutic range for Coumadin and related oral anticoagulants. - International Normalized Ratio (INR): 2.0 - 3.0 for Venous Thrombosis, Pulmonary Embolus, Tissue heart valves, Acute RI Atrial Fibrillation, Valvular heart disease and recurrent Systemic Embolism. - International Normalized Ratio (INR): 2.5 - 3.5 for Mechanical Prosthetic valve. ID Date Data Source UA URINALYSIS 02/13/2020 02:14:12 AM EDT eCW1 ([facility]) Name Value Range Interpretation Code Description Data Ynes rce(s) Supporting Document(s) UA URINALYSIS eCW1 ([facility]) ID Date Data Source RENAL PROFILE 02/13/2020 02:14:01 AM EDT eCW1 ([facility]) Name Value Range Interpretation Code Description Data Ynes rce(s) Supporting Document(s) 87 GLUCOSE, FASTING eCW1 ([facility]) 42.2 GLOMERULAR FILTRATION RATE eCW 1 ([facility]) 1.68 CREATININE FOR GFR eCW1 ([facility]) 21 BLOOD UREA NITROGEN eCW1 ([facility]) 102 CHLORIDE LEVEL eCW1 ([facility]) 4.9 POTASSIUM SERUM eCW1 ([facility]) 28 CARBON DIOXIDE LEVEL eCW1 ([facility]) 138 SODIUM LEVEL eCW1 ([facility]) 3.7 PHOSPHORUS LEVEL eCW1 ([facility]) 3.7 ALBUMIN eCW1 ([facility]) 8.5 CALCIUM LEVEL eCW1 ([facility]) ID Date Data Source [id number] 02/01/2020 12:00:00 AM EDT [facility] Joan Hernandez Pa-C Patient Name: [facility] MCRAE [facility] 1940[facility] [place] [id number] Date of Exam: 02/01/2020#: Fax: [phone] EXAM: US CAROTID BILATERAL COMPLETECLINICAL INFORMATION: Carotid stenosis. Recent MRA showing 60 to 75%narrowing in the proximal right ICA.Comparison MRA carotids 12/13/2019.FINDINGS:Standard duplex techniques were utilized to evaluate both carotids.There is some intimal thickening in the right common carotid with distalsoft plaque. There is anterior and posterior mixed plaque in the distalcommon carotid and bulb. Some plaque in the proximal ICA and ECA alsonoted.The left common carotid shows soft and small amounts of mixed plaqueposteriorly in the mid common carotid. Distally, there is mixed plaque aswell posteriorly and some intimal thickening. There is mixed plaque in thebulb anteriorly and posteriorly extending in to the proximal ICA, less inthe mid and distal left ICA.Peak velocity: RIGHT LEFTCCA/PSV 1.21 m/s 1.22 m/s CCA/EDV 0.21 m/s 0.26 m/Evie/PSV 1.0 m/s 0.98 m/Evie/EDV 0.27 m/s 0.30 m/sECA/PSV 0.57 m/s 0.69 m/Evie/CCA ratio 0.8 0.8The Doppler wave form analysis shows some mild spectral broadening in theproximal right ICA. Plaque is somewhat irregular at the bulb.The left internal carotid shows minimal spectral broadening in itsmid-course, less in the proximal and distal with no filling in of thesystolic window. Cranial direction of flow was seen in both vertebralarteries.IMPRESSION:1. Bilateral less than 50% carotid stenosis, right greater than left. Byconsensus national criteria, the velocities suggest less than 50% stenosisbut probably close to that for the right, less on the left.2. Cranial direction of flow in the vertebral arteries bilaterally.Accredited by the [employer] in Vascular [employer].Lazara Luque, EVELIN/Vijay you for referring LIN MCRAE to our office. Electronically Signed - LAZARA LUQUE MD 02/05/20 9:34 Name Value Range Interpretation Code Description Data Ynes rce(s) Supporting Document(s) ID Date Data Source CBC with Differential 11/24/2019 12:00:00 AM EDT eCW1 ([facility]) Name Value Range Interpretation Code Description Data Ynes rce(s) Supporting Document(s) 3.91 4.30-6.10 RED BLOOD COUNT eCW1 ([facility]) 9.1 4.0-10.0 WHITE BLOOD COUNT eCW1 ([facility]) 36.5 42.0-52.0 HEMATOCRIT eCW1 ([facility]) 11.8 13.5-17.5 HEMOGLOBIN eCW1 ([facility]) 32.3 32.0-36.5 MEAN CORPUSCULAR HGB CONC eCW1 ([facility]) 93.4 80.0-96.0 MEAN CORPUSCULAR VOLUME e CW1 ([facility]ly [facility]) 30.2 27.0-33.0 MEAN CORPUSCULAR HEMOGLOB IN eCW1 ([facility]) 15.3 11.5-14.5 RED CELL DISTRIBUTION WID TH eCW1 ([facility]) 8.5 0.0-5.0 MONO % eCW1 ([facility]) 27.7 24.0-44.0 LYMPH % eCW1 ([facility]) 54.6 36.0-66.0 NEUTROPHILS % eCW1 ([facility]) 122 150-450 PLATELET COUNT, AUTOMATED eCW1 ([facility]) 2.5 1.5-5.0 LYMPH # eCW1 ([facility]) 5.0 1.5-8.5 NEUTROPHILS # eCW1 ([facility]) 0.4 0.0-1.0 BASO % eCW1 ([facility]) 8.3 0.0-3.0 EOS % eCW1 ([facility]) 0.0 0.0-0.2 BASO # eCW1 ([facility]) 0.8 0.0-0.5 EOS # eCW1 ([facility]) 0.8 0.0-0.8 MONO # eCW1 ([facility]) Procedure Social History Code Duration Value Status Description Data Source(s ) Smoking 08/16/2020 12:00:00 AM EST Former Smoker completed Former Smoker eCW1 ([facility]ly [facility]) Smoking 07/12/2020 12:00:00 AM EST Former Smoker completed Former Smoker eCW1 ([facility]ly [facility]) Smoking 07/12/2020 12:00:00 AM EST Former Smoker completed Former Smoker eCW1 ([facility]ly [facility]) Smoking 07/12/2020 12:00:00 AM EST Former Smoker completed Former Smoker eCW1 ([facility]ly [facility]) Smoking 06/07/2020 01:14:11 PM EST Ex-smoker (finding) complet ed Ex-smoker (finding) RENETTA ([facility]ough[facility]) Smoking 03/03/2020 12:00:00 AM EDT Patient is a former smoker completed Patient is a former smoker MEDENT ([facility], [facility]) Smoking 02/22/2020 12:00:00 AM EDT Former Smoker completed Former Smoker eCW1 ([facility]ly [facility]) Smoking 02/22/2020 12:00:00 AM EDT Former Smoker completed Former Smoker eCW1 ([facility]ly [facility]) Smoking 02/22/2020 12:00:00 AM EDT Former Smoker completed Former Smoker eCW1 ([facility]ly [facility]) Smoking 02/22/2020 12:00:00 AM EDT Former Smoker completed Former Smoker eCW1 ([facility]) Smoking 02/22/2020 12:00:00 AM EDT Former Smoker completed Former Smoker eCW1 ([facility]ly [facility]) Smoking 02/22/2020 12:00:00 AM EDT Former Smoker completed Former Smoker eCW1 ([facility]) Smoking 02/20/2020 12:00:00 AM EDT Former Smoker completed Former Smoker eCW1 ([facility]) Smoking 02/19/2020 12:00:00 AM EDT Former Smoker completed Former Smoker eCW1 ([facility]ly [facility]) Smoking 02/16/2020 12:00:00 AM EDT Former Smoker completed Former Smoker eCW1 ([facility]ly [facility]) Smoking 02/14/2020 12:00:00 AM EDT Former Smoker completed Former Smoker eCW1 ([facility]) Smoking 02/14/2020 12:00:00 AM EDT Former Smoker completed Former Smoker eCW1 ([facility]) Smoking 02/12/2020 12:00:00 AM EDT Former Smoker completed Former Smoker eCW1 ([facility]) Smoking 01/18/2020 12:00:00 AM EDT Former Smoker completed Former Smoker eCW1 ([facility]) Smoking 01/18/2020 12:00:00 AM EDT Former Smoker completed Former Smoker eCW1 ([facility]) Smoking 01/18/2020 12:00:00 AM EDT Former Smoker completed Former Smoker eCW1 ([facility]) Smoking 01/05/2020 12:00:00 AM EDT Former Smoker completed Former Smoker eCW1 ([facility]) Smoking 01/05/2020 12:00:00 AM EDT Former Smoker completed Former Smoker eCW1 ([facility]) Smoking 01/05/2020 12:00:00 AM EDT Former Smoker completed Former Smoker eCW1 ([facility]) Smoking 01/05/2020 12:00:00 AM EDT Former Smoker completed Former Smoker eCW1 ([facility]ly [facility]) Vital Signs ID Date Data Source UNK Name Value Range Interpretation Code Description Data Source(s) Diastolic blood pressure 68 mm[Hg] 68 mm[Hg] eCW1 ([facility]) Systolic blood pressure 120 mm[Hg] 120 mm[Hg] e CW1 ([facility]) Body temperature 97.9 [degF] 97.9 [degF] eCW1 ( [facility]) Respiratory rate 18 /min 18 /min eCW1 ([facility]) Heart rate 71 /min 71 /min eCW1 ([facility]) Body mass index (BMI) [Ratio] 28.63 kg/m2 28.63 kg/m2 W1 ([facility]) Body height 66 [in_i] 66 [in_i] eCW1 ([facility]) Body weight 177.4 [lb_av] 177.4 [lb_av] eCW1 ([facility]) Diastolic blood pressure 76 mm[Hg] 76 mm[Hg] eCW1 ([facility]) Systolic blood pressure 120 mm[Hg] 120 mm[Hg] e CW1 ([facility]) Body temperature 98.2 [degF] 98.2 [degF] eCW1 ( [facility]) Respiratory rate 18 /min 18 /min eCW1 ([facility]) Heart rate 76 /min 76 /min eCW1 ([facility]) Body mass index (BMI) [Ratio] 30.66 kg/m2 30.66 kg/m2 eCW1 ([facility]) Body height 66 [in_i] 66 [in_i] eCW1 ([facility]) Body weight 190 [lb_av] 190 [lb_av] eCW1 ([facility]) Body mass index (BMI) [Ratio] 26.6 kg/m2 26.6 k g/m2 MEDENT ([facility], [facility]) Body height 65 [in_i] 65 [in_i] MEDENT ([facility], [facility]) 5'5" Body weight 160.00 [lb_av] 160.00 [lb_av] MEDEN T ([facility], [facility]) Body temperature 97.8 [degF] 97.8 [degF] MEDENT ([facility], [facility]) Oxygen saturation in Arterial blood by Pulse oximetry 97 % 97 % MEDENT ([facility], [facility]) Respiratory rate 17 /min 17 /min MEDENT ( [facility], [facility]) Heart rate 66 /min 66 /min MEDENT ([facility], [facility]) Diastolic blood pressure 60 mm[Hg] 60 mm[Hg] MEDENT ([facility], [facility]) Systolic blood pressure 102 mm[Hg] 102 mm[Hg] M EDENT ([facility], [facility]) Body temperature 97.5 [degF] 97.5 [degF] eCW1 ( [facility]) Respiratory rate 18 /min 18 /min eCW1 ([facility]) Heart rate 72 /min 72 /min eCW1 ([facility]) Body mass index (BMI) [Ratio] 26.63 kg/m2 26.63 kg/m2 eCW1 ([facility]) Body height 66 [in_i] 66 [in_i] eCW1 ([facility]) Body weight [lb_av] eCW1 ([facility]) Diastolic blood pressure 66 mm[Hg] 66 mm[Hg] eCW1 ([facility]) Systolic blood pressure 115 mm[Hg] 115 mm[Hg] e CW1 ([facility]) Body temperature 98 [degF] 98 [degF] eCW1 ([facility]) Respiratory rate 16 /min 16 /min eCW1 ([facility]) Heart rate 64 /min 64 /min eCW1 ([facility]) Body mass index (BMI) [Ratio] 29.05 kg/m2 29.05 kg/m2 eCW1 ([facility]) Body height 66 [in_i] 66 [in_i] eCW1 ([facility]) Body weight [lb_av] eCW1 ([facility]) Diastolic blood pressure 60 mm[Hg] 60 mm[Hg] eCW1 ([facility]) Systolic blood pressure 140 mm[Hg] 140 mm[Hg] e CW1 ([facility]) Body temperature 98.9 [degF] 98.9 [degF] eCW1 ( [facility]) Respiratory rate 16 /min 16 /min eCW1 ([facility]) Heart rate 63 /min 63 /min eCW1 ([facility]) Body mass index (BMI) [Ratio] 29.05 kg/m2 29.05 kg/m2 eCW1 ([facility]) Body height 66 [in_i] 66 [in_i] eCW1 ([facility]) Body weight 180 [lb_av] 180 [lb_av] eCW1 ([facility]) Diastolic blood pressure 74 mm[Hg] 74 mm[Hg] eCW1 ([facility]) Systolic blood pressure 130 mm[Hg] 130 mm[Hg] e CW1 ([facility]) Body temperature 97.6 [degF] 97.6 [degF] eCW1 ( [facility]) Respiratory rate 18 /min 18 /min eCW1 ([facility]) Heart rate 69 /min 69 /min eCW1 ([facility]) Body mass index (BMI) [Ratio] 29.18 kg/m2 29.18 kg/m2 eCW1 ([facility]) Body height 66 [in_i] 66 [in_i] eCW1 ([facility]) Body weight 180.8 [lb_av] 180.8 [lb_av] eCW1 ([facility]) Diastolic blood pressure 66 mm[Hg] 66 mm[Hg] eCW1 ([facility]) Systolic blood pressure 110 mm[Hg] 110 mm[Hg] e CW1 ([facility]) Body temperature 97.8 [degF] 97.8 [degF] eCW1 ( [facility]) Respiratory rate 18 /min 18 /min eCW1 ([facility]) Heart rate 68 /min 68 /min eCW1 ([facility]) Body mass index (BMI) [Ratio] 29.08 kg/m2 29.08 kg/m2 W1 ([facility]) Body height 66 [in_i] 66 [in_i] eCW1 ([facility]) Body weight 180.2 [lb_av] 180.2 [lb_av] eCW1 ([facility]) Diastolic blood pressure 82 mm[Hg] 82 mm[Hg] eCW1 ([facility]) Systolic blood pressure 128 mm[Hg] 128 mm[Hg] e CW1 ([facility]) Body temperature 97.7 [degF] 97.7 [degF] eCW1 ( [facility]) Respiratory rate 18 /min 18 /min eCW1 ([facility]) Heart rate 68 /min 68 /min eCW1 ([facility]) Body mass index (BMI) [Ratio] 29.24 kg/m2 29.24 kg/m2 eCW1 ([facility]) Body height 66 [in_i] 66 [in_i] eCW1 ([facility]) Body weight 181.2 [lb_av] 181.2 [lb_av] eCW1 ([facility]) Body mass index (BMI) [Ratio] 31.9 kg/m2 31.9 k g/m2 MEDENT ([facility] ) Body weight 183.12 [lb_av] 183.12 [lb_av] MEDEN T ([facility] ) Body height 63.5 [in_i] 63.5 [in_i] MEDENT ([facility] ) 5'3.50" Body temperature 97.6 [degF] 97.6 [degF] MEDENT ([facility]) Diastolic blood pressure 74 mm[Hg] 74 mm[Hg] eCW1 ([facility]) Systolic blood pressure 120 mm[Hg] 120 mm[Hg] e CW1 ([facility]) Body temperature 96.3 [degF] 96.3 [degF] eCW1 ( [facility]) Respiratory rate 18 /min 18 /min eCW1 ([facility]) Heart rate 85 /min 85 /min eCW1 ([facility]) Body mass index (BMI) [Ratio] 29.95 kg/m2 29.95 kg/m2 eCW1 ([facility]) Body height 66 [in_i] 66 [in_i] eCW1 ([facility]) Body weight 185.6 [lb_av] 185.6 [lb_av] eCW1 ([facility]) Body weight 84.370 kg 84.370 kg MEDENT ([facility], ) Body mass index (BMI) [Ratio] 30.9 kg/m2 30.9 k g/m2 MEDENT ([facility], ) Body weight 186.00 [lb_av] 186.00 [lb_av] MEDEN T ([facility], ) Body height 65 [in_i] 65 [in_i] MEDENT ([facility], ) 5'5" Diastolic blood pressure 74 mm[Hg] 74 mm[Hg] MEDJAY ([facility], ) Systolic blood pressure 122 mm[Hg] 122 mm[Hg] M LANDEN ([facility], ) Diastolic blood pressure 70 mm[Hg] 70 mm[Hg] eCW1 ([facility]) Systolic blood pressure 130 mm[Hg] 130 mm[Hg] e CW1 ([facility]) Body temperature 97.5 [degF] 97.5 [degF] eCW1 ( [facility]) Respiratory rate 18 /min 18 /min eCW1 ([facility]) Heart rate 69 /min 69 /min eCW1 ([facility]) Body mass index (BMI) [Ratio] 29.99 kg/m2 29.99 kg/m2 eCW1 ([facility]) Body height 66 [in_us] 66 [in_us] eCW1 ([facility]) Body weight Measured 185.8 [lb_av] 185.8 [lb_av ] eCW1 ([facility]) Diastolic blood pressure 80 mm[Hg] 80 mm[Hg] eCW1 ([facility]) Systolic blood pressure 122 mm[Hg] 122 mm[Hg] e CW1 ([facility]) Body temperature 96.3 [degF] 96.3 [degF] eCW1 ( [facility]) Respiratory rate 18 /min 18 /min eCW1 ([facility]) Heart rate 68 /min 68 /min eCW1 ([facility]) Body mass index (BMI) [Ratio] 30.55 kg/m2 30.55 kg/m2 eCW1 ([facility]) Body height 66 [in_us] 66 [in_us] eCW1 ([facility]) Body weight Measured 189.3 [lb_av] 189.3 [lb_av ] eCW1 ([facility]) Diastolic blood pressure 74 mm[Hg] 74 mm[Hg] eCW1 ([facility]) Systolic blood pressure 122 mm[Hg] 122 mm[Hg] e CW1 ([facility]) Body temperature 97 [degF] 97 [degF] eCW1 ([facility]) Respiratory rate 18 /min 18 /min eCW1 ([facility]) Heart rate 64 /min 64 /min eCW1 ([facility]) Body mass index (BMI) [Ratio] 30.47 kg/m2 30.47 kg/m2 eCW1 ([facility]) Body height 66 [in_us] 66 [in_us] eCW1 ([facility]) Body weight Measured 188.8 [lb_av] 188.8 [lb_av ] eCW1 ([facility]) Diastolic blood pressure 70 mm[Hg] 70 mm[Hg] eCW1 ([facility]) Systolic blood pressure 120 mm[Hg] 120 mm[Hg] e CW1 ([facility]) Body temperature 96.1 [degF] 96.1 [degF] eCW1 ( [facility]) Respiratory rate 18 /min 18 /min eCW1 ([facility]) Heart rate 75 /min 75 /min eCW1 ([facility]) Body mass index (BMI) [Ratio] 29.08 kg/m2 29.08 kg/m2 W1 ([facility]) Body height 66 [in_us] 66 [in_us] eCW1 ([facility]) Body weight Measured 180.2 [lb_av] 180.2 [lb_av ] eCW1 ([facility]) Diastolic blood pressure 70 mm[Hg] 70 mm[Hg] eCW1 ([facility]) Systolic blood pressure 128 mm[Hg] 128 mm[Hg] e CW1 (Formerly [facility]) Body temperature 97.8 [degF] 97.8 [degF] eCW1 ( Formerly [facility]) Respiratory rate 18 /min 18 /min eCW1 ([facility]) Heart rate 68 /min 68 /min eCW1 (Formerly [facility]) Body mass index (BMI) [Ratio] 29.53 kg/m2 29.53 kg/m2 eCW1 (Formerly [facility]) Body height 66 [in_us] 66 [in_us] eCW1 ([facility]) Body weight Measured 183 [lb_av] 183 [lb_av] eC W1 (Formerly [facility]) Diastolic blood pressure 64 mm[Hg] 64 mm[Hg] eCW1 (Formerly [facility]) Systolic blood pressure 100 mm[Hg] 100 mm[Hg] e CW1 (Formerly [facility]) Body mass index (BMI) [Ratio] 27.27 kg/m2 27.27 kg/m2 eCW1 (Formerly [facility]) Body height 66 [in_us] 66 [in_us] eCW1 ([facility]) Body weight Measured 169 [lb_av] 169 [lb_av] eC W1 (Formerly [facility]) Diastolic blood pressure 76 mm[Hg] 76 mm[Hg] eCW1 ([facility]ly [facility]) Systolic blood pressure 118 mm[Hg] 118 mm[Hg] e CW1 (Formerly [facility]) Body mass index (BMI) [Ratio] 29.05 kg/m2 29.05 kg/m2 eCW1 (Formerly [facility]) Body height 66 [in_us] 66 [in_us] eCW1 ([facility]) Body weight Measured 180 [lb_av] 180 [lb_av] eC W1 ([facility]ly [facility]) Diastolic blood pressure 72 mm[Hg] 72 mm[Hg] eCW1 ([facility]ly [facility]) Systolic blood pressure 120 mm[Hg] 120 mm[Hg] e CW1 ([facility]) Body temperature 97.9 [degF] 97.9 [degF] eCW1 ( [facility]ly [facility]) Respiratory rate 18 /min 18 /min eCW1 ([facility]) Heart rate 96 /min 96 /min eCW1 (Formerly [facility]) Body mass index (BMI) [Ratio] 30.02 kg/m2 30.02 kg/m2 eCW1 ([facility]ly [facility]) Body height 66 [in_us] 66 [in_us] eCW1 ([facility]) Body weight Measured 186 [lb_av] 186 [lb_av] eC W1 ([facility]ly [facility]) Body mass index (BMI) [Ratio] 26.6 kg/m2 26.6 k g/m2 MEDENT ([facility], [facility]) Body height 65 [in_i] 65 [in_i] MEDENT ([facility]) 5'5" Body weight 160.00 [lb_av] 160.00 [lb_av] MEDEN T ([facility], [facility]) Oxygen saturation in Arterial blood by Pulse oximetry 95 % 95 % MEDENT ([facility], [facility]) Respiratory rate 18 /min 18 /min MEDENT ( [facility], [facility]) Heart rate 92 /min 92 /min MEDENT ([facility], [facility]) Diastolic blood pressure 80 mm[Hg] 80 mm[Hg] MEDENT ([facility], [facility]) Systolic blood pressure 137 mm[Hg] 137 mm[Hg] M EDENT ([facility], [facility]) Diastolic blood pressure 72 mm[Hg] 72 mm[Hg] eCW1 ([facility]ly [facility]) Systolic blood pressure 122 mm[Hg] 122 mm[Hg] e CW1 ([facility]ly [facility]) Body temperature 97.6 [degF] 97.6 [degF] eCW1 ( [facility]) Respiratory rate 18 /min 18 /min eCW1 ([facility]) Heart rate 91 /min 91 /min eCW1 ([facility]ly [facility]) Body mass index (BMI) [Ratio] 29.28 kg/m2 29.28 kg/m2 W1 ([facility]ly [facility]) Body height 66 [in_us] 66 [in_us] eCW1 ([facility]) Body weight Measured 181.4 [lb_av] 181.4 [lb_av ] eCW1 ([facility]ly [facility]) Body mass index (BMI) [Ratio] 26.6 kg/m2 26.6 k g/m2 MEDENT ([facility], [facility]) Body height 65 [in_i] 65 [in_i] MEDENT ([facility], [facility]) 5'5" Body weight 160.00 [lb_av] 160.00 [lb_av] MEDEN T ([facility], [facility]) Body temperature 98.6 [degF] 98.6 [degF] MEDENT ([facility]) Oxygen saturation in Arterial blood by Pulse oximetry 97 % 97 % MEDENT ([facility], [facility]) Respiratory rate 18 /min 18 /min MEDENT ( [facility], [facility]) Heart rate 80 /min 80 /min MEDENT ([facility], [facility]) Diastolic blood pressure 68 mm[Hg] 68 mm[Hg] MEDENT ([facility]) Systolic blood pressure 100 mm[Hg] 100 mm[Hg] M EDENT ([facility]) ID Date Data Source [id number] 07/03/2020 02:28:56 PM [facility] Name Value Range Interpretation Code Description Data Source(s) WEIGHT RECORDED 198.00 pounds 198.00 pounds Health system Height 65 Inches 065 Inches [facility] WEIGHT RECORDED 202.50 pounds 202.50 pounds Health system Height 65 Inches 065 Inches [facility] ID Date Data Source [id number] 03/28/2020 12:34:16 PM [facility] Name Value Range Interpretation Code Description Data Source(s) WEIGHT RECORDED 177.80 pounds 177.80 pounds Health system Height 67 Inches 067 Inches [facility] Patient Treatment Plan of Care Planned Activity Planned Date Details Description Data Source (s) Apixaban 2.5 MG 07/08/2020 12:00:00 AM EST eCW1 (Formerly [facility]) Amlodipine 5 MG Oral Tablet 07/08/2020 12:00:00 AM EST eCW1 (Formerly [facility]) valacyclovir 1000 MG Oral Tablet [Valtrex] 06/07/2020 12:00:[address] [facility] ([facility]) prednisolone acetate 10 MG/ML Ophthalmic Suspension [P red Forte] 06/07/2020 12:00:00 AM EST [facility] ([facility]) valacyclovir 1000 MG Oral Tablet [Valtrex] 05/28/2020 12:00:00 AM E DT [place] ([facility]) prednisolone acetate 10 MG/ML Ophthalmic Suspension [P red Forte] 05/28/2020 12:00:00 AM EDT [facility] ([facility]) Cephalexin 250 MG Oral Tablet 02/12/2020 12:00:00 AM EDT eCW1 (Formerly [facility]) Potassium Chloride 10 MEQ Extended Release Oral Tablet 12/14/2019 12:00:00 AM EDT eCW1 ([facility]) apixaban 2.5 MG Oral Tablet [Eliquis] 12/14/2019 12:00:00 AM EDT eCW1 (Formerly [facility]) apixaban 2.5 MG Oral Tablet [Eliquis] 12/14/2019 12:00:00 AM EDT eCW1 (Formerly [facility]) apixaban 2.5 MG Oral Tablet [Eliquis] 12/14/2019 12:00:00 AM EDT eCW1 (Formerly [facility]) apixaban 2.5 MG Oral Tablet [Eliquis] 12/14/2019 12:00:00 AM EDT eCW1 (Formerly [facility]) apixaban 2.5 MG Oral Tablet [Eliquis] 12/14/2019 12:00:00 AM EDT eCW1 (Formerly [facility]) apixaban 2.5 MG Oral Tablet [Eliquis] 12/14/2019 12:00:00 AM EDT eCW1 (Formerly [facility]) apixaban 2.5 MG Oral Tablet [Eliquis] 12/14/2019 12:00:00 AM EDT eCW1 (Formerly [facility]) apixaban 2.5 MG Oral Tablet [Eliquis] 12/14/2019 12:00:00 AM EDT eCW1 (Formerly [facility]) Bactroban 2% 11/29/2019 12:00:00 AM EDT e CW1 (Formerly [facility]) Cephalexin 500 MG Oral Tablet 11/29/2019 12:00:00 AM EDT eCW1 (Formerly [facility]) gabapentin 100 MG Oral Capsule 11/08/2019 12:00:00 AM EDT eCW1 (Formerly [facility]) Magnesium Oxide 400 MG 10/19/2019 12:00:00 AM EDT eCW1 (Formerly [facility]) K Dur 20 MEQ 10/19/2019 12:00:00 AM EDT e CW1 (Formerly [facility]) 24 HR metoprolol succinate 50 MG Extended Release Oral Tablet 10/19/2019 12:00:00 AM EDT eCW1 ([facility]) valacyclovir 500 MG Oral Tablet [Valtrex] 06/22/2019 12:00:00 AM ES T [facility] ([facility]) loteprednol etabonate 0.005 MG/MG Ophthalmic Gel [Lote max] 02/24/2019 12:00:00 AM EDT [facility] ([facility]) doxycycline hyclate 50 MG Oral Tablet 02/10/2019 12:00:00 AM EDT [facility] ([facility])
[2020-09-20] MEDS ORDERED: FLUORESCEIN OPHTH 1 MG STRIP OU ONE (09:00)
--- OUTSIDE RECORDS SUMMARY | 2020-09-20 09:04 | CCD ---
Author Author [facility] Organization [facility] Address Unknown Phone Unavailable Care Team Providers Care Cashier Host/Hostess Name Role Phone Geovany Zamora Unavailable Unavailable [...] A. JOSE DO Unavailable [phone] MATEO, Ronda JOSE DO Unavailable [phone] Ronda GALINDO JOSE DO Unavailable [phone] Ronda GALINDO JOSE DO Unavailable [phone] MATEO, A. JOSE DO Unavailable [phone] MATEORonda JOSE DO Unavailable [phone] Ronda GALINDO [...] MATEO, A. JOSE DO Unavailable [phone] Rnoda GALINDO JOSE DO Unavailable [phone] Ronda GALINDO JOSE DO Unavailable [phone] MATEO, A. JOSE DO Unavailable [phone] MATEO, A. JOSE DO Unavailable [phone] Gillian Simmons Unavailable Unavailable Gillian Simmons Unavailable Unavailable Gillian Simmons Unavailable [...] K PRINCE PA Unavailable Unavailable RING, K PIRNCE PA Unavailable Unavailable RING, K PRINCE PA [...] Wetterhahn, M Leigh Ann PA Unavailable Unavailable OLIVEIRAGUME SIMMS MD Unavailable Unavailable [...] Unavailable Unavailable OLIVEIRAGUME SIMMS MD Unavailable Unavailable OILVEIRAGUME SIMMS MD Unavailable Unavailable GUME OLIVEIRA MD Unavailable Unavailable OLIVEIRAGUME SIMMS MD Unavailable Unavailable OLIVEIRAGUME SIMMS MD Unavailable Unavailable OLIVEIRAGUME SIMMS MD Unavailable Unavailable OLIVEIRAGUME SIMMS MD Unavailable Unavailable OLIVEIRAGUME SIMMS MD Unavailable Unavailable OLIVEIRAGUME SIMMS MD Unavailable Unavailable OLIVEIRAGUME SIMMS MD Unavailable Unavailable OLIVEIRAGUME SIMMS MD Unavailable Unavailable OLIVEIRAGUME SIMMS MD Unavailable Unavailable OLIVEIRAGUME SIMMS MD Unavailable Unavailable OLIVEIRA, GUME MD Unavailable [...] Unavailable Unavailable OLIVEIRA, GUME MD Unavailable Unavailable AliAsael MD Unavailable [...] MD Unavailable Unavailable AliAsael MD Unavailable Unavailable Ali Asael MD Unavailable Unavailable Asael Jay MD Unavailable [...] Jay MD Unavailable Unavailable Alyson, B Jose PIN BALL MACHINE MECHANIC Unavailable Unavailable Alyson, B Jose PIN BALL MACHINE MECHANIC Unavailable Unavailable Alyson, B Jose PIN BALL MACHINE MECHANIC Unavailable Unavailable Alyson, B Jose PIN BALL MACHINE MECHANIC Unavailable Unavailable Alyson, B Jose PIN BALL MACHINE MECHANIC Unavailable Unavailable Alyson, B Jose PIN BALL MACHINE MECHANIC Unavailable Unavailable Alyson, B Jose PIN BALL MACHINE MECHANIC Unavailable Unavailable Alyson, B Jose PIN BALL MACHINE MECHANIC Unavailable Unavailable Alyson, B Jose PIN BALL MACHINE MECHANIC Unavailable Unavailable Shannen HARRIS MD Unavailable Unavailable VENEShannen PORTILLO MD Unavailable Unavailable Shannen HARRIS MD Unavailable Unavailable VENEShannen PORTILLO MD Unavailable Unavailable VENEShannen PORTILLO MD Unavailable Unavailable Shannen HARRIS MD Unavailable Unavailable Shannen HARRIS MD Unavailable Unavailable Shannen HARRIS MD Unavailable Unavailable Shannen HARRIS MD Unavailable Unavailable Alea Villanueva MD Unavailable Unavailable VillanuevaAlea MD Unavailable Unavailable Alea Villanueva MD Unavailable Unavailable Alea Villanueva MD Unavailable Unavailable VillanuevaAlea MD Unavailable Unavailable VillanuevaAlea MD Unavailable Unavailable VillanuevaAlea MD Unavailable Unavailable Villanueva L Sanya TREJO Unavailable Unavailable VillanuevaAlea MD Unavailable Unavailable VillanuevaAlea MD Unavailable Unavailable VillanuevaAlea MD Unavailable Unavailable VillanuevaAlea MD Unavailable Unavailable VillanuevaAlea song MD Unavailable Unavailable VillanuevaAlea MD Unavailable Unavailable VillanuevaAlea MD Unavailable Unavailable VillanuevaAlea MD Unavailable Unavailable Villanueva L Sanya TREJO Unavailable Unavailable VillanuevaAlea MD Unavailable Unavailable VillanuevaAlea MD Unavailable Unavailable VillanuevaAlea MD Unavailable Unavailable VillanuevaAlea MD Unavailable Unavailable Villanueva L Sanya TREJO Unavailable Unavailable VillanuevaAlea MD Unavailable Unavailable VillanuevaAlea MD Unavailable Unavailable Villanueva, L Sanya TREJO Unavailable Unavailable Villanueva, L Sanya MD Unavailable Unavailable Villanueva, L Sanya MD Unavailable Unavailable Villanueva, L Sanya MD Unavailable Unavailable Villanueva, L Sanya MD Unavailable Unavailable Villanueva, L Asnya MD Unavailable Unavailable Villanueva, L Sanya MD [...] is protected by Article 27-F of the [facility] Public Health law. If you continue you may have access to information: Regarding HIV / AIDS; Provided by facilities licensed or operated by the [facility] Office of Mental Health; or Provided by the [facility] Office for People With Developmental Disabilities. If such information is present, then the following [facility] mandated warning applies: This information has been [...] law may result in a fine or fpc sentence or both. A general authorization for the release of medical or other information is NOT sufficient authorization for further disc losure. Allergies and Adverse Reactions Type Description Substance Reaction Status Data Source(s ) No Known Allergies No Known Allergies [facility] Allergy to substance No Known Allergies No known allergies (situation ) R[place]ETTA (Smith Willoughby [facility]) Drug allergy Gabapentin gabapentin edema Active eCW1 ([facility]) Drug allergy Ciclopirox ciclopirox rash Active eCW1 ([facility]) Family History Family Member Name Family Member Gender Family Member Status Date o f Status Description Data Source(s) Unknown Male Problem MEDENT ([facility]) Encounters Encounter Providers Location Date Indications Data Source(s ) Office Visit, Est Pt., Level 2 FC [address] [place] [address] 08/16/2020 12:00:00 AM EST eCW1 ([facility]) (TCM) Transition of Care Visit [address] [place] [address] 07/12/2020 12:00:00 AM EST eCW1 ([facility]) Unknown [address] [facility] [address] 07/09/2020 12:00:00 AM EST eCW1 (formerly [facility]) Unknown [address] [facility] [address] 07/08/2020 12:00:00 AM EST eCW1 (formerly [facility]) Inpatient Attender: Jose WILSON ttender: GUME OLIVEIRA MDAttender: JUSTIN PEREZReferrer: GUME OLIVEIRA MDConsultant: Leigh Ann HAYNES 06/21/2020 01:10:00 PM EST - 06/28/2020 02:43:00 PM [facility] Patient discharged. Outpatient Attender: Jose Shields NPReferrer: GUME Cosby MD 06/19/2020 10:58:00 AM EST - 06/21/2020 01:10:00 PM [facility] Outpatient Attender: GUME OLIVEIRA MDConsultant: Leigh Ann HAYNES 06/13/2020 07:33:00 AM EST - 06/13/2020 07:43:00 AM EST [facility] Outpatient<td ID="encounterTypeDescripti onID0">10 - 14 Day Follow- Up</td><td>Jose Galindo DO</td><td>Smith Cruz MD [facility]</td><td>06/07/2020</td><td>12:20PM</td><td>1:10PM</td><td><content ID="encounterDiagnosisID0-0">Keratitis Herpes Simplex</content>, <content ID="encounterDiagnosisID0-1">Stroke - Ischemic Embolic</content></td> Attender: JOSE Mckay MD [facility] 06/07/2020 12:20:00 PM EST - 06/07/2020 01:10:00 PM EST Keratitis Herpes SimplexStroke - Ischemic Embolic RENETTA (Smith Willoughby MD [facility]) 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 Outpatient<td ID="encounterTypeDescripti onID1">11 Month Follow- Up</td><td>Jose Galindo DO</td><td>Smith Cruz MD [facility]</td><td>05/28/2020</td><td>12:29PM</td><td>1:56PM</td><td><content ID="encounterDiagnosisID1-0">Stroke - Ischemic Embolic</content></td> Attender: JOSE Mcaky MD [facility] 05/28/2020 12:29:00 PM EDT - 05/28/2020 01:56:00 PM EDT Stroke - Ischemic Embolic RENETTA ([facility] Willoughby [facility]) Stroke - Ischemic [facility]olic [place] [address] [facility] [address] 05/14/2020 12:00:00 AM EDT eCW1 (formerly [facility]) Outpatient Attender: GUME OLIVEIRA MDConsultant: Leigh Ann HAYNES 04/11/2020 10:52:00 AM EDT - 04/11/2020 11:52:00 AM EDT [facility] Outpatient Attender: GUME OLIVEIRA MDConsultant: Leigh Ann HAYNES 04/04/2020 06:49:00 AM EDT - 04/04/2020 06:59:00 AM EDT [facility] Emergency Attender: SYD HARRIS MDConsultant: Leigh Ann HAYNES 03/07/2020 12:33:00 PM EDT - 03/07/2020 01:20:00 PM EDT [facility] Patient discharged. Outpatient Attender: ROSS musa 03/03/2020 04:30:00 PM EDT MEDENT ([facility]) Inpatient Attender: Gillian Benton er: JUSTIN PEREZConsultant: Leigh Ann HAYNES 03/01/2020 05:44:00 PM EDT - 03/02/2020 11:05:00 AM EDT [facility] Patient discharged. Emergency Attender: JUSTIN PEREZ 2019 03:42:00 PM EDT - 03/01/2020 05:44:00 PM EDT [facility] Outpatient [address] [facility] [id number] 02/22/2020 12:00:00 AM EDT eCW1 (formerly [facility]) Outpatient [address] [facility] [address] 02/20/2020 12:00:00 AM EDT eCW1 (formerly [facility]) (WND LYUDMILATCH) Stretcher Required Patients [address] [place] [address] 02/19/2020 12:00:00 AM EDT eCW1 ([facility]) Unknown [address] [facility] [address] 02/19/2020 12:00:00 AM EDT eCW1 (formerly [facility]) Outpatient [address] [facility] [address] 02/16/2020 12:00:00 AM EDT eCW1 (formerly [facility]) Unknown [address] [facility] [address] 02/15/2020 12:00:00 AM EDT eCW1 ([facility]) Outpatient [address] [facility] [address] 02/14/2020 12:00:00 AM EDT eCW1 ([facility]) Unknown [address] [facility] [address] 02/14/2020 12:00:00 AM EDT eCW1 ([facility]) Unknown [address] [facility] [address] 02/13/2020 12:00:00 AM EDT eCW1 ([facility]) Outpatient [address] [facility] [address] 02/12/2020 12:00:00 AM EDT eCW1 ([facility]) [facility] Dermatology [address] [place] [address] 01/31/2020 12:00:00 AM EDT eCW1 ([facility]) Outpatient Referrer: Joan Hernandez RPA 01/24/2020 10:05:0 0 AM EDT [facility] Unknown [address] [facility] [address] 01/23/2020 12:00:00 AM EDT eCW1 ([facility]) [facility] [address] [facility] [address] 01/18/2020 12:00:00 AM EDT eCW1 ([facility]) Unknown [address] [facility] [address] 01/17/2020 12:00:00 AM EDT eCW1 ([facility]) Unknown [address] [facility] [address] 01/12/2020 12:00:00 AM EDT eCW1 ([facility]) Unknown [address] [facility] [address] 01/11/2020 12:00:00 AM EDT eCW1 [facility]) Outpatient Attender: Sanya Villanueva MD Physical Therapy 01/05/2020 0 2:00:00 PM EDT MEDENT ([facility]) Unknown [address] [facility] [address] 01/05/2020 12:00:00 AM EDT eCW1 ([facility]) [facility] Kamara [address] [facility] [address] 01/05/2020 12:00:00 AM EDT eCW1 ([facility]) Outpatient [address] [facility] [address] 01/02/2020 12:00:00 AM EDT eCW1 ([facility]) Unknown [address] [facility] [address] 01/02/2020 12:00:00 AM EDT eCW1 ([facility] [address] [facility] [address] 01/02/2020 12:00:00 AM EDT eCW1 ([facility]) Outpatient Referrer: Sarah HAYNES 12/29/2019 08:18:0 0 AM EDT [facility] [address] [facility] [address] 12/29/2019 12:00:00 AM EDT eCW1 ([facility]) Outpatient Referrer: Sarah HAYNES 12/27/2019 07:23:0 0 AM EDT [facility] [address] [facility] [address] 12/20/2019 12:00:00 AM EDT eCW1 ([facility]) Outpatient Attender: Asael Jay MD Main office - [place] 12/19/2019 02:00:00 PM EDT MEDENT ([facility]) Outpatient Referrer: Sarah HAYNES 12/15/2019 01:34:0 0 PM EDT [facility] [address] [facility] [address] 12/15/2019 12:00:00 AM EDT eCW1 ([facility]) [address] [place] [address] 12/15/2019 12:00:00 AM EDT eCW1 ([facility]) [facility] [place] [address] [facility] [address] 12/13/2019 12:00:00 AM EDT eCW1 ([facility]) [facility] Dermatology [address] [facility] [place] [address] 12/11/2019 12:00:00 AM EDT eCW1 ([facility]) Unknown [address] [facility] [address] 12/06/2019 12:00:00 AM EDT eCW1 ([facility]) [facility] Kamara [address] [facility] [address] 12/04/2019 12:00:00 AM EDT eCW1 ([facility]) [facility] [address] [facility] [address] 11/29/2019 12:00:00 AM EDT eCW1 ([facility]) [facility] Kamara [address] [facility] [address] 11/29/2019 12:00:00 AM EDT eCW1 ([facility]) [facility] [place] [address] [facility] [address] 11/24/2019 12:00:00 AM EDT eCW1 ([facility]) [facility] [place] [address] [facility] [address] 11/24/2019 12:00:00 AM EDT eCW1 ([facility]) Outpatient Attender: Sarah HAYNES Physical Therapy 09:30:00 AM EDT MEDENT ([facility]) Outpatient Referrer: Sarah HAYNES 11/08/2019 06:19:0 0 AM EDT [facility] Outpatient Referrer: Sarah HAYNES 11/08/2019 06:15:0 0 AM EDT [facility] Kam[place] [address] [facility] [address] 11/08/2019 12:00:00 AM EDT eCW1 ([facility]) [facility] Asad [address] [facility] [address] 11/02/2019 12:00:00 AM EDT eCW1 ([facility]) [facility] [place] [address] [facility] [address] 11/01/2019 12:00:00 AM EDT eCW1 ([facility]) [facility] Dermatology [address] [place] [address] 10/31/2019 12:00:00 AM EDT eCW1 ([facility]) [facility] [place] [address] [facility] [address] 10/27/2019 12:00:00 AM EDT eCW1 ([facility]) [facility] Kam[place] [address] [facility] [address] 10/27/2019 12:00:00 AM EDT eCW1 ([facility]) [facility] [place] [address] [place] [address] [address] 10/26/2019 12:00:00 AM EDT eCW1 ([facility]) [facility] Dermatology [address] [place] [address] 10/26/2019 12:00:00 AM EDT eCW1 ([facility]) [facility] Kam[place] [address] [facility] [address] 10/25/2019 12:00:00 AM EDT eCW1 ([facility]) [facility] Dermatology [address] [place] [address] 10/23/2019 12:00:00 AM EDT eCW1 ([facility]) [facility] Kam[place] [address] [facility] [address] 10/23/2019 12:00:00 AM EDT eCW1 ([facility]) [facility] Kam[place] [address] [facility] [address] 10/20/2019 12:00:00 AM EDT eCW1 ([facility]) [facility] Asad [address] [place] [address] 10/20/2019 12:00:00 AM EDT eCW1 ([facility]) [facility] Jair [address] [place] [address] 10/19/2019 12:00:00 AM EDT eCW1 ([facility]) [facility] Dermatology Center [address] [place] [address] 10/17/2019 12:00:00 AM EDT eCW1 ([facility]) [facility] Dermatology Center [address] [place] [address] 10/16/2019 12:00:00 AM EDT eCW1 ([facility]) [address] [address] 10/12/2019 12:00:00 AM EDT eCW1 ([facility]) [facility] Dermatology Center [address] [place] [address] 10/12/2019 12:00:00 AM EDT eCW1 ([facility]) Unknown [address] [place] [address] 10/10/2019 12:00:00 AM EDT eCW1 ([facility]) [facility] Dermatology [address] [place] [address] 10/10/2019 12:00:00 AM EDT eCW1 ([facility]) [facility] Dermatology [address] [place] [address] 10/10/2019 12:00:00 AM EDT eCW1 ([facility]) Outpatient Referrer: Sarah HAYNES 10/09/2019 01:12:0 0 PM EDT [facility] Outpatient Attender: Asael Jay MD [facility] 10/06/2019 08:00:00 AM EST MEDENT ([facility] JAYNE almaguer) [address] [place] [address] 10/05/2019 12:00:00 AM EST eCW1 ([facility]) [facility] Kam[place] [address] [facility] [address] 10/04/2019 12:00:00 AM EST eCW1 ([facility]) [facility] Asad [address] [facility] [address] 10/03/2019 12:00:00 AM EST eCW1 ([facility]) [facility] Kamara [address] [facility] [address] 10/03/2019 12:00:00 AM EST eCW1 ([facility]) [facility] Dermatology [address] [place] [address] 09/28/2019 12:00:00 AM EST eCW1 ([facility]) [facility] Dermatology Center [address] [place] [address] 09/28/2019 12:00:00 AM EST eCW1 ([facility]) [facility] [place] [address] [place] [address] [address] 09/18/2019 12:00:00 AM EST eCW1 ([facility]) [facility] Dermatology Center [address] [place] [address] 09/18/2019 12:00:00 AM EST eCW1 ([facility]) [facility] Dermatology Center [address] [place] [address] 09/14/2019 12:00:00 AM EST eCW1 ([facility]) [facility] [place] [address] [place] [address], [place] [address] 09/12/2019 12:00:00 AM EST eCW1 ([facility]) [facility] Dermatology Center [address] [place] [phone] 09/12/2019 12:00:00 AM EST eCW1 ([facility]) [facility] Dermatology [address] [place] [address] 09/08/2019 12:00:00 AM EST eCW1 ([facility]) [facility] Dermatology [address] [place] [address] 09/05/2019 12:00:00 AM EST eCW1 ([facility]) [facility] [place] [address] [facility] [address] 09/01/2019 12:00:00 AM EST eCW1 ([facility]) [facility] Dermatology Center [address] [place] [address] 08/29/2019 12:00:00 AM EST eCW1 ([facility]) Outpatient Attender: PRINCE Pop 08/20/2019 08:00:00 AM EST MEDENT ([facility]) [facility] Dermatology [address] [place] [address] 08/09/2019 12:00:00 AM EST eCW1 (formerly [facility]) Immunizations Vaccine Date Status Description Data Source(s) Tdap 11/24/2019 11:18:00 AM EDT completed e CW1 (Pending Sale To [facility]) Tdap 11/24/2019 11:18:00 AM EDT completed e CW1 (Pending Sale To [facility]) Tdap 11/24/2019 11:18:00 AM EDT completed e CW1 (Pending Sale To [facility]) Tdap 11/24/2019 11:18:00 AM EDT completed e CW1 (Pending Sale To [facility]) Tdap 11/24/2019 11:18:00 AM EDT completed e CW1 (Pending Sale To [facility]) Tdap 11/24/2019 11:18:00 AM EDT completed e CW1 (Pending Sale To [facility]) Tdap 11/24/2019 11:18:00 AM EDT completed e CW1 (Pending Sale To [facility]) Tdap 11/24/2019 11:18:00 AM EDT completed e CW1 (Pending Sale To [facility]) Tdap 11/24/2019 11:18:00 AM EDT completed e CW1 (Pending Sale To [facility]) Tdap 11/24/2019 11:18:00 AM EDT completed e CW1 (Pending Sale To [facility]) Tdap 11/24/2019 11:18:00 AM EDT completed e CW1 (Pending Sale To [facility]) Tdap 11/24/2019 11:18:00 AM EDT completed e CW1 (Pending Sale To [facility]) Tdap 11/24/2019 11:18:00 AM EDT completed e CW1 (Pending Sale To [facility]) Tdap 11/24/2019 11:18:00 AM EDT completed e CW1 (Pending Sale To [facility]) Tdap 11/24/2019 11:18:00 AM EDT completed e CW1 (Pending Sale To [facility]) Tdap 11/24/2019 11:18:00 AM EDT completed e CW1 (Pending Sale To [facility]) Tdap 11/24/2019 11:18:00 AM EDT completed e CW1 (Pending Sale To [facility]) Tdap 11/24/2019 11:18:00 AM EDT completed e CW1 (Pending Sale To [facility]) Tdap 11/24/2019 11:18:00 AM EDT completed e CW1 (Pending Sale To [facility]) Tdap 11/24/2019 11:18:00 AM EDT completed e CW1 (Pending Sale To [facility]) Tdap 11/24/2019 11:18:00 AM EDT completed e CW1 (Pending Sale To [facility]) Tdap 11/24/2019 11:18:00 AM EDT completed e CW1 (Pending Sale To [facility]) Tdap 11/24/2019 11:18:00 AM EDT completed e CW1 (Pending Sale To [facility]) Tdap 11/24/2019 11:18:00 AM EDT completed e CW1 (Pending Sale To [facility]) Medications Medication Brand Name Start Date Product Form Dose Route Admi nistrative Instructions Pharmacy Instructions Status Indications Reaction Description Data Source(s) Acetaminophen 500 MG Oral Tablet Acetaminophen 500 MG 2019 12:00:00 AM EST active Acetaminophen 500 MG eCW1 (Pending Sale To [facility]) Acetaminophen 500 MG Oral Tablet Acetaminophen 500 MG 2019 12:00:00 AM EST active Acetaminophen 500 MG eCW1 (Pending Sale To [facility]) Apixaban 2.5 MG UNK 07/08/2020 12:00:00 AM EST active Apixaban 2.5 MG eCW1 (Pending Sale To [facility]) Aspir-Low 81 MG UNK 07/08/2020 12:00:00 AM EST 1.0 {tablet} active Aspir-Low 81 MG eCW1 (Pending Sale To [facility]) Apixaban 2.5 MG UNK 07/08/2020 12:00:00 AM EST active Apixaban 2.5 MG eCW1 (Pending Sale To [facility]) Acetaminophen 500 MG Oral Tablet Acetaminophen 500 MG 2019 12:00:00 AM EST active Acetaminophen 500 MG eCW1 (Pending Sale To [facility]) Aspir-Low 81 MG UNK 07/08/2020 12:00:00 AM EST 1.0 {tablet} active Aspir-Low 81 MG eCW1 (Pending Sale To [facility]) Allopurinol 100 MG Oral Tablet Allopurinol 100 MG 07/08/2020 12:00: 00 AM EST 1.0 {tablet} active Allopurinol 100 MG eCW1 (Pending Sale To [facility]) Aspir-Low 81 MG UNK 07/08/2020 12:00:00 AM EST 1.0 {tablet} active Aspir-Low 81 MG eCW1 (Pending Sale To [facility]) Aspir-Low 81 MG UNK 07/08/2020 12:00:00 AM EST 1.0 {tablet} active Aspir-Low 81 MG eCW1 (Pending Sale To [facility]) Acetaminophen 500 MG Oral Tablet Acetaminophen 500 MG 2019 12:00:00 AM EST active Acetaminophen 500 MG eCW1 (Pending Sale To [facility]) Apixaban 2.5 MG UNK 07/08/2020 12:00:00 AM EST active Apixaban 2.5 MG eCW1 (Pending Sale To [facility]) Amlodipine 5 MG Oral Tablet AmLODIPine Besylate 5 MG AmLODIP ine Besylate 5 MG 07/08/2020 12:00:00 AM EST 1.0 {tablet} active AmLODIPine Besylate 5 MG eCW1 (Pending Sale To [facility]) Apixaban 2.5 MG UNK 07/08/2020 12:00:00 AM EST active Apixaban 2.5 MG eCW1 (Pending Sale To [facility]) Amlodipine 5 MG Oral Tablet AmLODIPine Besylate 5 MG AmLODIP ine Besylate 5 MG 07/08/2020 12:00:00 AM EST 1.0 {tablet} active AmLODIPine Besylate 5 MG eCW1 (Pending Sale To [facility]) Amlodipine 5 MG Oral Tablet AmLODIPine Besylate 5 MG AmLODIP ine Besylate 5 MG 07/08/2020 12:00:00 AM EST 1.0 {tablet} active AmLODIPine Besylate 5 MG eCW1 (Pending Sale To [facility]) Allopurinol 100 MG Oral Tablet Allopurinol 100 MG 07/08/2020 12:00: 00 AM EST 1.0 {tablet} active Allopurinol 100 MG eCW1 (Pending Sale To [facility]) Allopurinol 100 MG Oral Tablet Allopurinol 100 MG 07/08/2020 12:00: 00 AM EST 1.0 {tablet} active Allopurinol 100 MG eCW1 (Pending Sale To [facility]) Amlodipine 5 MG Oral Tablet AmLODIPine Besylate 5 MG AmLODIP ine Besylate 5 MG 07/08/2020 12:00:00 AM EST 1.0 {tablet} active AmLODIPine Besylate 5 MG eCW1 (Pending Sale To [facility]) valacyclovir 1000 MG Oral Tablet [Valtrex] Valtrex 1 G M Oral Tablet Valtrex 1 GM Oral Tablet 06/07/2020 12:00:00 AM EST 1 activ e valacyclovir 1000 MG Oral Tablet [Valtrex] RENETTA ([facility] Willough[facility]) prednisolone acetate 10 MG/ML Ophthalmic Suspension [Pred Forte] Pred Forte 1% Ophthalmic Suspension Pred Forte 1% Ophthalmic Suspension 06/07/2020 12:00:0 0 AM EST active predniso lone acetate 10 MG/ML Ophthalmic Suspension [Pred Forte] RENETTA ([facility] Willoughby [facility]) prednisolone acetate 10 MG/ML Ophthalmic Suspension [Pred Forte] Pred Forte 1% Ophthalmic Suspension Pred Forte 1% Ophthalmic Suspension 05/28/2020 12:00:0 0 AM EDT aborted predniso lone acetate 10 MG/ML Ophthalmic Suspension [Pred Forte] RENETTA ([facility] Willoughby [facility]) valacyclovir 1000 MG Oral Tablet [Valtrex] Valtrex 1 G M Oral Tablet Valtrex 1 GM Oral Tablet 05/28/2020 12:00:00 AM EDT 1 abort ed valacyclovir 1000 MG Oral Tablet [Valtrex] RENETTA ([facility] Willoughby MD [facility]) Doxycycline Monohydrate 100 MG Oral Capsule Doxycycline Villal[place] hydrate 03/03/2020 12:00:00 AM EDT ORAL active M EDENT ([facility]) Triamcinolone Acetonide 1 MG/ML Topical Cream Triamcinolone Acetonide 03/03/2020 12:00:00 AM EDT active MEDENT ([facility], [facility]) Cephalexin 250 MG Oral Tablet Cephalexin 250 MG 02/12/2020 12:00:00 AM EDT 1.0 {capsule} active Cephalexin 250 MG eCW 1 (Pending Sale To [facility]) Cephalexin 250 MG Oral Tablet Cephalexin 250 MG 02/12/2020 12:00:00 AM EDT 1.0 {capsule} active Cephalexin 250 MG eCW 1 (Pending Sale To [facility]) Cephalexin 250 MG Oral Tablet Cephalexin 250 MG 02/12/2020 12:00:00 AM EDT 1.0 {capsule} active Cephalexin 250 MG eCW 1 (Pending Sale To [facility]) Cephalexin 250 MG Oral Tablet Cephalexin 250 MG 02/12/2020 12:00:00 AM EDT 1.0 {capsule} active Cephalexin 250 MG eCW 1 (Pending Sale To [facility]) Cephalexin 250 MG Oral Tablet Cephalexin 250 MG 02/12/2020 12:00:00 AM EDT 1.0 {capsule} active Cephalexin 250 MG eCW 1 (Pending Sale To [facility]) Cephalexin 250 MG Oral Tablet Cephalexin 250 MG 02/12/2020 12:00:00 AM EDT 1.0 {capsule} active Cephalexin 250 MG eCW 1 (Pending Sale To [facility]) Cephalexin 250 MG Oral Tablet Cephalexin 250 MG 02/12/2020 12:00:00 AM EDT 1.0 {capsule} active Cephalexin 250 MG eCW 1 (Pending Sale To [facility]) Cephalexin 250 MG Oral Tablet Cephalexin 250 MG 02/12/2020 12:00:00 AM EDT 1.0 {capsule} active Cephalexin 250 MG eCW 1 (Pending Sale To [facility]) Cephalexin 250 MG Oral Tablet Cephalexin 250 MG 02/12/2020 12:00:00 AM EDT 1.0 {capsule} active Cephalexin 250 MG eCW 1 (Pending Sale To [facility]) Cephalexin 250 MG Oral Tablet Cephalexin 250 MG 02/12/2020 12:00:00 AM EDT 1.0 {capsule} active Cephalexin 250 MG eCW 1 (Pending Sale To [facility]) Cephalexin 250 MG Oral Tablet Cephalexin 250 MG 02/12/2020 12:00:00 AM EDT 1.0 {capsule} active Cephalexin 250 MG eCW 1 (Pending Sale To [facility]) Cephalexin 250 MG Oral Tablet Cephalexin 250 MG 02/12/2020 12:00:00 AM EDT 1.0 {capsule} active Cephalexin 250 MG eCW 1 (Pending Sale To [facility]) Mupirocin 0.02 MG/MG Topical Ointment Mupirocin 2 % Mupiroci n 2 % 12/14/2019 12:00:00 AM EDT 1.0 {application} active Mupirocin 2 % eCW1 (Pending Sale To [facility]) apixaban 2.5 MG Oral Tablet [Eliquis] Eliquis 2.5 MG Eliquis 2.5 MG 12/14/2019 12:00:00 AM EDT active Eliquis 2.5 MG eCW1 (Pending Sale To [facility]) montelukast 10 MG Oral Tablet Montelukast Sodium 10 MG Benny lukast Sodium 10 MG 12/14/2019 12:00:00 AM EDT 1.0 {tablet} active Montelukast Sodium 10 MG eCW1 (Pending Sale To [facility]) Mupirocin 0.02 MG/MG Topical Ointment Mupirocin 2 % Mupiroci n 2 % 12/14/2019 12:00:00 AM EDT 1.0 {application} active Mupirocin 2 % eCW1 (Pending Sale To [facility]) Potassium Chloride 20 MEQ Extended Relea se Oral Tablet Potassium Chloride ER 20 MEQ Potassium Chloride ER 20 MEQ 12/14/2019 12:00:00 AM EDT 1.0 {tablet_with_food} active Potassium Chl oride ER 20 MEQ eCW1 (Pending Sale To [facility]) Mupirocin 0.02 MG/MG Topical Ointment Mupirocin 2 % Mupiroci n 2 % 12/14/2019 12:00:00 AM EDT 1.0 {application} active Mupirocin 2 % eCW1 (Pending Sale To [facility]) Potassium Chloride 20 MEQ Extended Relea se Oral Tablet Potassium Chloride ER 20 MEQ Potassium Chloride ER 20 MEQ 12/14/2019 12:00:00 AM EDT 1.0 {tablet_with_food} active Potassium Chl oride ER 20 MEQ eCW1 (Pending Sale To [facility]) apixaban 2.5 MG Oral Tablet [Eliquis] Eliquis 2.5 MG Eliquis 2.5 MG 12/14/2019 12:00:00 AM EDT active Eliquis 2.5 MG eCW1 (Pending Sale To [facility]) Acetaminophen 500 MG Oral Tablet Acetaminophen 500 MG 2019 12:00:00 AM EDT active Acetaminophen 500 MG eCW1 (Pending Sale To [facility]) montelukast 10 MG Oral Tablet Montelukast Sodium 10 MG Benny lukast Sodium 10 MG 12/14/2019 12:00:00 AM EDT 1.0 {tablet} active Montelukast Sodium 10 MG eCW1 (Pending Sale To [facility]) apixaban 2.5 MG Oral Tablet [Eliquis] Eliquis 2.5 MG Eliquis 2.5 MG 12/14/2019 12:00:00 AM EDT active Eliquis 2.5 MG eCW1 (Pending Sale To [facility]) Acetaminophen 500 MG Oral Tablet Acetaminophen 500 MG 2019 12:00:00 AM EDT active Acetaminophen 500 MG eCW1 (Pending Sale To [facility]) Acetaminophen 500 MG Oral Tablet Acetaminophen 500 MG 2019 12:00:00 AM EDT active Acetaminophen 500 MG eCW1 (Pending Sale To [facility]) apixaban 2.5 MG Oral Tablet [Eliquis] Eliquis 2.5 MG Eliquis 2.5 MG 12/14/2019 12:00:00 AM EDT active Eliquis 2.5 MG eCW1 (Pending Sale To [facility]) apixaban 2.5 MG Oral Tablet [Eliquis] Eliquis 2.5 MG Eliquis 2.5 MG 12/14/2019 12:00:00 AM EDT active Eliquis 2.5 MG eCW1 (Pending Sale To [facility]) Potassium Chloride 20 MEQ Extended Relea se Oral Tablet Potassium Chloride ER 20 MEQ Potassium Chloride ER 20 MEQ 12/14/2019 12:00:00 AM EDT active 1 tablet with food eCW1 (formerly [facility]) apixaban 2.5 MG Oral Tablet [Eliquis] Eliquis 2.5 MG Eliquis 2.5 MG 12/14/2019 12:00:00 AM EDT active Eliquis 2.5 MG eCW1 (Pending Sale To [facility]) apixaban 2.5 MG Oral Tablet [Eliquis] Eliquis 2.5 MG Eliquis 2.5 MG 12/14/2019 12:00:00 AM EDT active Eliquis 2.5 MG eCW1 (Pending Sale To [facility]) Mupirocin 0.02 MG/MG Topical Ointment Mupirocin 2 % Mupiroci n 2 % 12/14/2019 12:00:00 AM EDT 1.0 {application} active Mupirocin 2 % eCW1 (Pending Sale To [facility]) montelukast 10 MG Oral Tablet Montelukast Sodium 10 MG Benny lukast Sodium 10 MG 12/14/2019 12:00:00 AM EDT active 1 tablet eCW1 (Pending Sale To [facility]) montelukast 10 MG Oral Tablet Montelukast Sodium 10 MG Benny lukast Sodium 10 MG 12/14/2019 12:00:00 AM EDT active 1 tablet eCW1 (Pending Sale To [facility]) Potassium Chloride 20 MEQ Extended Relea se Oral Tablet Potassium Chloride ER 20 MEQ Potassium Chloride ER 20 MEQ 12/14/2019 12:00:00 AM EDT 1.0 {tablet_with_food} active Potassium Chl oride ER 20 MEQ eCW1 (Pending Sale To [facility]) Mupirocin 0.02 MG/MG Topical Ointment Mupirocin 2 % Mupiroci n 2 % 12/14/2019 12:00:00 AM EDT 1.0 {application} active Mupirocin 2 % eCW1 (Pending Sale To [facility]) apixaban 2.5 MG Oral Tablet [Eliquis] Eliquis 2.5 MG Eliquis 2.5 MG 12/14/2019 12:00:00 AM EDT active Eliquis 2.5 MG eCW1 (Pending Sale To [facility]) Mupirocin 0.02 MG/MG Topical Ointment Mupirocin 2 % Mupiroci n 2 % 12/14/2019 12:00:00 AM EDT 1.0 {application} active Mupirocin 2 % eCW1 (Pending Sale To [facility]) Mupirocin 0.02 MG/MG Topical Ointment Mupirocin 2 % Mupiroci n 2 % 12/14/2019 12:00:00 AM EDT 1.0 {application} active Mupirocin 2 % eCW1 (Pending Sale To [facility]) montelukast 10 MG Oral Tablet Montelukast Sodium 10 MG Benny lukast Sodium 10 MG 12/14/2019 12:00:00 AM EDT 1.0 {tablet} active Montelukast Sodium 10 MG eCW1 (Pending Sale To [facility]) apixaban 2.5 MG Oral Tablet [Eliquis] Eliquis 2.5 MG Eliquis 2.5 MG 12/14/2019 12:00:00 AM EDT active Eliquis 2.5 MG eCW1 (Pending Sale To [facility]) Mupirocin 0.02 MG/MG Topical Ointment Mupirocin 2 % Mupiroci n 2 % 12/14/2019 12:00:00 AM EDT 1.0 {application} active Mupirocin 2 % eCW1 (Pending Sale To [facility]) Potassium Chloride 20 MEQ Extended Relea se Oral Tablet Potassium Chloride ER 20 MEQ Potassium Chloride ER 20 MEQ 12/14/2019 12:00:00 AM EDT 1.0 {tablet_with_food} active Potassium Chl oride ER 20 MEQ eCW1 (Pending Sale To [facility]) Acetaminophen 500 MG Oral Tablet Acetaminophen 500 MG 2019 12:00:00 AM EDT active Acetaminophen 500 MG eCW1 (Pending Sale To [facility]) Mupirocin 0.02 MG/MG Topical Ointment Mupirocin 2 % Mupiroci n 2 % 12/14/2019 12:00:00 AM EDT 1.0 {application} active Mupirocin 2 % eCW1 (Pending Sale To [facility]) Acetaminophen 500 MG Oral Tablet Acetaminophen 500 MG 2019 12:00:00 AM EDT active Acetaminophen 500 MG eCW1 (Pending Sale To [facility]) montelukast 10 MG Oral Tablet Montelukast Sodium 10 MG Benny lukast Sodium 10 MG 12/14/2019 12:00:00 AM EDT 1.0 {tablet} active Montelukast Sodium 10 MG eCW1 (Pending Sale To [facility]) Potassium Chloride 10 MEQ Extended Relea se Oral Tablet Potassium Chloride ER 10 MEQ Potassium Chloride ER 10 MEQ 12/14/2019 12:00:00 AM EDT 1.0 {tablet_with_food} active Potassium Chl oride ER 10 MEQ eCW1 (Pending Sale To [facility]) Potassium Chloride 10 MEQ Extended Relea se Oral Tablet Potassium Chloride ER 10 MEQ Potassium Chloride ER 10 MEQ 12/14/2019 12:00:00 AM EDT 1.0 {tablet_with_food} active Potassium Chl oride ER 10 MEQ eCW1 (Pending Sale To [facility]) Acetaminophen 500 MG Oral Tablet Acetaminophen 500 MG 2019 12:00:00 AM EDT active Acetaminophen 500 MG eCW1 (Pending Sale To [facility]) Mupirocin 0.02 MG/MG Topical Ointment Mupirocin 2 % Mupiroci n 2 % 12/14/2019 12:00:00 AM EDT 1.0 {application} active Mupirocin 2 % eCW1 (Pending Sale To [facility]) Acetaminophen 500 MG Oral Tablet Acetaminophen 500 MG 2019 12:00:00 AM EDT active Acetaminophen 500 MG eCW1 (Pending Sale To [facility]) apixaban 2.5 MG Oral Tablet [Eliquis] Eliquis 2.5 MG Eliquis 2.5 MG 12/14/2019 12:00:00 AM EDT active 1 tab e CW1 (Pending Sale To [facility]) montelukast 10 MG Oral Tablet Montelukast Sodium 10 MG Benny lukast Sodium 10 MG 12/14/2019 12:00:00 AM EDT 1.0 {tablet} active Montelukast Sodium 10 MG eCW1 (Pending Sale To [facility]) montelukast 10 MG Oral Tablet Montelukast Sodium 10 MG Benny lukast Sodium 10 MG 12/14/2019 12:00:00 AM EDT 1.0 {tablet} active Montelukast Sodium 10 MG eCW1 (Pending Sale To [facility]) montelukast 10 MG Oral Tablet Montelukast Sodium 10 MG Benny lukast Sodium 10 MG 12/14/2019 12:00:00 AM EDT 1.0 {tablet} active Montelukast Sodium 10 MG eCW1 (Pending Sale To [facility]) Potassium Chloride 20 MEQ Extended Relea se Oral Tablet Potassium Chloride ER 20 MEQ Potassium Chloride ER 20 MEQ 12/14/2019 12:00:00 AM EDT 1.0 {tablet_with_food} active Potassium Chl oride ER 20 MEQ eCW1 (Pending Sale To [facility]) montelukast 10 MG Oral Tablet Montelukast Sodium 10 MG Benny lukast Sodium 10 MG 12/14/2019 12:00:00 AM EDT 1.0 {tablet} active Montelukast Sodium 10 MG eCW1 (Pending Sale To [facility]) valacyclovir 500 MG Oral Tablet Valacyclovir HCl 500 MG Vala cyclovir HCl 500 MG 12/14/2019 12:00:00 AM EDT active 1 tablet eCW1 (Pending Sale To [facility]) Acetaminophen 500 MG Oral Tablet Acetaminophen 500 MG 2019 12:00:00 AM EDT active Acetaminophen 500 MG eCW1 (Pending Sale To [facility]) Mupirocin 0.02 MG/MG Topical Ointment Mupirocin 2 % Mupiroci n 2 % 12/14/2019 12:00:00 AM EDT 1.0 {application} active Mupirocin 2 % eCW1 (Pending Sale To [facility]) montelukast 10 MG Oral Tablet Montelukast Sodium 10 MG Benny lukast Sodium 10 MG 12/14/2019 12:00:00 AM EDT 1.0 {tablet} active Montelukast Sodium 10 MG eCW1 (Pending Sale To [facility]) Potassium Chloride 20 MEQ Extended Relea se Oral Tablet Potassium Chloride ER 20 MEQ Potassium Chloride ER 20 MEQ 12/14/2019 12:00:00 AM EDT 1.0 {tablet_with_food} active Potassium Chl oride ER 20 MEQ eCW1 (Pending Sale To [facility]) Potassium Chloride 20 MEQ Extended Relea se Oral Tablet Potassium Chloride ER 20 MEQ Potassium Chloride ER 20 MEQ 12/14/2019 12:00:00 AM EDT 1.0 {tablet_with_food} active Potassium Chl oride ER 20 MEQ eCW1 (Pending Sale To [facility]) Mupirocin 0.02 MG/MG Topical Ointment Mupirocin 2 % Mupiroci n 2 % 12/14/2019 12:00:00 AM EDT active 1 applic ation eCW1 (Pending Sale To [facility]) Acetaminophen 500 MG Oral Tablet Acetaminophen 500 MG 2019 12:00:00 AM EDT active Acetaminophen 500 MG eCW1 (Pending Sale To [facility]) Acetaminophen 500 MG Oral Tablet Acetaminophen 500 MG 2019 12:00:00 AM EDT active 1000 mg eCW1 ([facility]) Mupirocin 0.02 MG/MG Topical Ointment Mupirocin 2 % Mupiroci n 2 % 12/14/2019 12:00:00 AM EDT 1.0 {application} active Mupirocin 2 % eCW1 (Pending Sale To [facility]) Acetaminophen 500 MG Oral Tablet Acetaminophen 500 MG 2019 12:00:00 AM EDT active Acetaminophen 500 MG eCW1 (Pending Sale To [facility]) Acetaminophen 500 MG Oral Tablet Acetaminophen 500 MG 2019 12:00:00 AM EDT active Acetaminophen 500 MG eCW1 (Pending Sale To [facility]) Mupirocin 0.02 MG/MG Topical Ointment Mupirocin 2 % Mupiroci n 2 % 12/14/2019 12:00:00 AM EDT 1.0 {application} active Mupirocin 2 % eCW1 (Pending Sale To [facility]) montelukast 10 MG Oral Tablet Montelukast Sodium 10 MG Benny lukast Sodium 10 MG 12/14/2019 12:00:00 AM EDT 1.0 {tablet} active Montelukast Sodium 10 MG eCW1 (Pending Sale To [facility]) Mupirocin 0.02 MG/MG Topical Ointment Mupirocin 2 % Mupiroci n 2 % 12/14/2019 12:00:00 AM EDT 1.0 {application} active Mupirocin 2 % eCW1 (Pending Sale To [facility]) Potassium Chloride 20 MEQ Extended Relea se Oral Tablet Potassium Chloride ER 20 MEQ Potassium Chloride ER 20 MEQ 12/14/2019 12:00:00 AM EDT 1.0 {tablet_with_food} active Potassium Chl oride ER 20 MEQ eCW1 (Pending Sale To [facility]) Acetaminophen 500 MG Oral Tablet Acetaminophen 500 MG 2019 12:00:00 AM EDT active Acetaminophen 500 MG eCW1 (Pending Sale To [facility]) Potassium Chloride 20 MEQ Extended Relea se Oral Tablet Potassium Chloride ER 20 MEQ Potassium Chloride ER 20 MEQ 12/14/2019 12:00:00 AM EDT 1.0 {tablet_with_food} active Potassium Chl oride ER 20 MEQ eCW1 (Pending Sale To [facility]) Mupirocin 0.02 MG/MG Topical Ointment Mupirocin 2 % Mupiroci n 2 % 12/14/2019 12:00:00 AM EDT 1.0 {application} active Mupirocin 2 % eCW1 (Pending Sale To [facility]) montelukast 10 MG Oral Tablet Montelukast Sodium 10 MG Benny lukast Sodium 10 MG 12/14/2019 12:00:00 AM EDT 1.0 {tablet} active Montelukast Sodium 10 MG eCW1 (Pending Sale To [facility]) Acetaminophen 500 MG Oral Tablet Acetaminophen 500 MG 2019 12:00:00 AM EDT active Acetaminophen 500 MG eCW1 (Pending Sale To [facility]) apixaban 2.5 MG Oral Tablet [Eliquis] Eliquis 2.5 MG Eliquis 2.5 MG 12/14/2019 12:00:00 AM EDT active 1 tab e CW1 (Pending Sale To [facility]) Mupirocin 0.02 MG/MG Topical Ointment Mupirocin 2 % Mupiroci n 2 % 12/14/2019 12:00:00 AM EDT active 1 applic ation eCW1 (Pending Sale To [facility]) apixaban 2.5 MG Oral Tablet [Eliquis] Eliquis 2.5 MG Eliquis 2.5 MG 12/14/2019 12:00:00 AM EDT active Eliquis 2.5 MG eCW1 (Pending Sale To [facility]) apixaban 2.5 MG Oral Tablet [Eliquis] Eliquis 2.5 MG Eliquis 2.5 MG 12/14/2019 12:00:00 AM EDT active Eliquis 2.5 MG eCW1 (Pending Sale To [facility]) montelukast 10 MG Oral Tablet Montelukast Sodium 10 MG Benny lukast Sodium 10 MG 12/14/2019 12:00:00 AM EDT 1.0 {tablet} active Montelukast Sodium 10 MG eCW1 (Pending Sale To [facility]) Potassium Chloride 20 MEQ Extended Relea se Oral Tablet Potassium Chloride ER 20 MEQ Potassium Chloride ER 20 MEQ 12/14/2019 12:00:00 AM EDT 1.0 {tablet_with_food} active Potassium Chl oride ER 20 MEQ eCW1 (Pending Sale To [facility]) montelukast 10 MG Oral Tablet Montelukast Sodium 10 MG Benny lukast Sodium 10 MG 12/14/2019 12:00:00 AM EDT 1.0 {tablet} active Montelukast Sodium 10 MG eCW1 (Pending Sale To [facility]) Mupirocin 0.02 MG/MG Topical Ointment Mupirocin 2 % Mupiroci n 2 % 12/14/2019 12:00:00 AM EDT 1.0 {application} active Mupirocin 2 % eCW1 (Pending Sale To [facility]) Potassium Chloride 20 MEQ Extended Relea se Oral Tablet Potassium Chloride ER 20 MEQ Potassium Chloride ER 20 MEQ 12/14/2019 12:00:00 AM EDT 1.0 {tablet_with_food} active Potassium Chl oride ER 20 MEQ eCW1 (Pending Sale To [facility]) Potassium Chloride 20 MEQ Extended Relea se Oral Tablet Potassium Chloride ER 20 MEQ Potassium Chloride ER 20 MEQ 12/14/2019 12:00:00 AM EDT 1.0 {tablet_with_food} active Potassium Chl oride ER 20 MEQ eCW1 (Pending Sale To [facility]) Potassium Chloride 20 MEQ Extended Relea se Oral Tablet Potassium Chloride ER 20 MEQ Potassium Chloride ER 20 MEQ 12/14/2019 12:00:00 AM EDT 1.0 {tablet_with_food} active Potassium Chl oride ER 20 MEQ eCW1 (Pending Sale To [facility]) Acetaminophen 500 MG Oral Tablet Acetaminophen 500 MG 2019 12:00:00 AM EDT active Acetaminophen 500 MG eCW1 (Pending Sale To [facility]) apixaban 2.5 MG Oral Tablet [Eliquis] Eliquis 2.5 MG Eliquis 2.5 MG 12/14/2019 12:00:00 AM EDT active Eliquis 2.5 MG eCW1 (Pending Sale To [facility]) Potassium Chloride 20 MEQ Extended Relea se Oral Tablet Potassium Chloride ER 20 MEQ Potassium Chloride ER 20 MEQ 12/14/2019 12:00:00 AM EDT active 1 tablet with food eCW1 (formerly [facility]) apixaban 2.5 MG Oral Tablet [Eliquis] Eliquis 2.5 MG Eliquis 2.5 MG 12/14/2019 12:00:00 AM EDT active Eliquis 2.5 MG eCW1 (Pending Sale To [facility]) Mupirocin 0.02 MG/MG Topical Ointment Mupirocin 2 % Mupiroci n 2 % 12/14/2019 12:00:00 AM EDT 1.0 {application} active Mupirocin 2 % eCW1 (Pending Sale To [facility]) Mupirocin 0.02 MG/MG Topical Ointment Mupirocin 2 % Mupiroci n 2 % 12/14/2019 12:00:00 AM EDT 1.0 {application} active Mupirocin 2 % eCW1 (Pending Sale To [facility]) Mupirocin 0.02 MG/MG Topical Ointment Mupirocin 2 % Mupiroci n 2 % 12/14/2019 12:00:00 AM EDT 1.0 {application} active Mupirocin 2 % eCW1 (Pending Sale To [facility]) montelukast 10 MG Oral Tablet Montelukast Sodium 10 MG Benny lukast Sodium 10 MG 12/14/2019 12:00:00 AM EDT 1.0 {tablet} active Montelukast Sodium 10 MG eCW1 (Pending Sale To [facility]) montelukast 10 MG Oral Tablet Montelukast Sodium 10 MG Benny lukast Sodium 10 MG 12/14/2019 12:00:00 AM EDT 1.0 {tablet} active Montelukast Sodium 10 MG eCW1 (Pending Sale To [facility]) Acetaminophen 500 MG Oral Tablet Acetaminophen 500 MG 2019 12:00:00 AM EDT active Acetaminophen 500 MG eCW1 (Pending Sale To [facility]) Acetaminophen 500 MG Oral Tablet Acetaminophen 500 MG 2019 12:00:00 AM EDT active Acetaminophen 500 MG eCW1 (Pending Sale To [facility]) montelukast 10 MG Oral Tablet Montelukast Sodium 10 MG Benny lukast Sodium 10 MG 12/14/2019 12:00:00 AM EDT 1.0 {tablet} active Montelukast Sodium 10 MG eCW1 (Pending Sale To [facility]) Potassium Chloride 10 MEQ Extended Relea se Oral Tablet Potassium Chloride ER 10 MEQ Potassium Chloride ER 10 MEQ 12/14/2019 12:00:00 AM EDT 1.0 {tablet_with_food} active Potassium Chl oride ER 10 MEQ eCW1 (Pending Sale To [facility]) apixaban 2.5 MG Oral Tablet [Eliquis] Eliquis 2.5 MG Eliquis 2.5 MG 12/14/2019 12:00:00 AM EDT active Eliquis 2.5 MG eCW1 (Pending Sale To [facility]) montelukast 10 MG Oral Tablet Montelukast Sodium 10 MG Benny lukast Sodium 10 MG 12/14/2019 12:00:00 AM EDT 1.0 {tablet} active Montelukast Sodium 10 MG eCW1 (Pending Sale To [facility]) Potassium Chloride 20 MEQ Extended Relea se Oral Tablet Potassium Chloride ER 20 MEQ Potassium Chloride ER 20 MEQ 12/14/2019 12:00:00 AM EDT 1.0 {tablet_with_food} active Potassium Chl oride ER 20 MEQ eCW1 (Pending Sale To [facility]) Mupirocin 0.02 MG/MG Topical Ointment Mupirocin 2 % Mupiroci n 2 % 12/14/2019 12:00:00 AM EDT 1.0 {application} active Mupirocin 2 % eCW1 (Pending Sale To [facility]) montelukast 10 MG Oral Tablet Montelukast Sodium 10 MG Benny lukast Sodium 10 MG 12/14/2019 12:00:00 AM EDT 1.0 {tablet} active Montelukast Sodium 10 MG eCW1 (Pending Sale To [facility]) Mupirocin 0.02 MG/MG Topical Ointment Mupirocin 2 % Mupiroci n 2 % 12/14/2019 12:00:00 AM EDT 1.0 {application} active Mupirocin 2 % eCW1 (Pending Sale To [facility]) apixaban 2.5 MG Oral Tablet [Eliquis] Eliquis 2.5 MG Eliquis 2.5 MG 12/14/2019 12:00:00 AM EDT active Eliquis 2.5 MG eCW1 (Pending Sale To [facility]) montelukast 10 MG Oral Tablet Montelukast Sodium 10 MG Benny lukast Sodium 10 MG 12/14/2019 12:00:00 AM EDT 1.0 {tablet} active Montelukast Sodium 10 MG eCW1 (Pending Sale To [facility]) montelukast 10 MG Oral Tablet Montelukast Sodium 10 MG Benny lukast Sodium 10 MG 12/14/2019 12:00:00 AM EDT 1.0 {tablet} active Montelukast Sodium 10 MG eCW1 (Pending Sale To [facility]) apixaban 2.5 MG Oral Tablet [Eliquis] Eliquis 2.5 MG Eliquis 2.5 MG 12/14/2019 12:00:00 AM EDT active Eliquis 2.5 MG eCW1 (Pending Sale To [facility]) Potassium Chloride 20 MEQ Extended Relea se Oral Tablet Potassium Chloride ER 20 MEQ Potassium Chloride ER 20 MEQ 12/14/2019 12:00:00 AM EDT 1.0 {tablet_with_food} active Potassium Chl oride ER 20 MEQ eCW1 (Pending Sale To [facility]) Potassium Chloride 10 MEQ Extended Relea se Oral Tablet Potassium Chloride ER 10 MEQ Potassium Chloride ER 10 MEQ 12/14/2019 12:00:00 AM EDT 1.0 {tablet_with_food} active Potassium Chl oride ER 10 MEQ eCW1 (Pending Sale To [facility]) Potassium Chloride 20 MEQ Extended Relea se Oral Tablet Potassium Chloride ER 20 MEQ Potassium Chloride ER 20 MEQ 12/14/2019 12:00:00 AM EDT 1.0 {tablet_with_food} active Potassium Chl oride ER 20 MEQ eCW1 (Pending Sale To [facility]) montelukast 10 MG Oral Tablet Montelukast Sodium 10 MG Benny lukast Sodium 10 MG 12/14/2019 12:00:00 AM EDT 1.0 {tablet} active Montelukast Sodium 10 MG eCW1 (Pending Sale To [facility]) montelukast 10 MG Oral Tablet Montelukast Sodium 10 MG Benny lukast Sodium 10 MG 12/14/2019 12:00:00 AM EDT 1.0 {tablet} active Montelukast Sodium 10 MG eCW1 (Pending Sale To [facility]) apixaban 2.5 MG Oral Tablet [Eliquis] Eliquis 2.5 MG Eliquis 2.5 MG 12/14/2019 12:00:00 AM EDT active Eliquis 2.5 MG eCW1 (Pending Sale To [facility]) Potassium Chloride 20 MEQ Extended Relea se Oral Tablet Potassium Chloride ER 20 MEQ Potassium Chloride ER 20 MEQ 12/14/2019 12:00:00 AM EDT 1.0 {tablet_with_food} active Potassium Chl oride ER 20 MEQ eCW1 (Pending Sale To [facility]) Acetaminophen 500 MG Oral Tablet Acetaminophen 500 MG 2019 12:00:00 AM EDT active Acetaminophen 500 MG eCW1 (Pending Sale To [facility]) Acetaminophen 500 MG Oral Tablet Acetaminophen 500 MG 2019 12:00:00 AM EDT active 1000 mg eCW1 ([facility]) Potassium Chloride 20 MEQ Extended Relea se Oral Tablet Potassium Chloride ER 20 MEQ Potassium Chloride ER 20 MEQ 12/14/2019 12:00:00 AM EDT 1.0 {tablet_with_food} active Potassium Chl oride ER 20 MEQ eCW1 (Pending Sale To [facility]) Acetaminophen 500 MG Oral Tablet Acetaminophen 500 MG 2019 12:00:00 AM EDT active Acetaminophen 500 MG eCW1 (Pending Sale To [facility]) Acetaminophen 500 MG Oral Tablet Acetaminophen 500 MG 2019 12:00:00 AM EDT active Acetaminophen 500 MG eCW1 (Pending Sale To [facility]) Mupirocin 0.02 MG/MG Topical Ointment Mupirocin 2 % Mupiroci n 2 % 12/14/2019 12:00:00 AM EDT 1.0 {application} active Mupirocin 2 % eCW1 (Pending Sale To [facility]) Mupirocin 0.02 MG/MG Topical Ointment Mupirocin 2 % Mupiroci n 2 % 12/14/2019 12:00:00 AM EDT 1.0 {application} active Mupirocin 2 % eCW1 (Pending Sale To [facility]) apixaban 2.5 MG Oral Tablet [Eliquis] Eliquis 2.5 MG Eliquis 2.5 MG 12/14/2019 12:00:00 AM EDT active Eliquis 2.5 MG eCW1 (Pending Sale To [facility]) apixaban 2.5 MG Oral Tablet [Eliquis] Eliquis 2.5 MG Eliquis 2.5 MG 12/14/2019 12:00:00 AM EDT active Eliquis 2.5 MG eCW1 (Pending Sale To [facility]) Potassium Chloride 20 MEQ Extended Relea se Oral Tablet Potassium Chloride ER 20 MEQ Potassium Chloride ER 20 MEQ 12/14/2019 12:00:00 AM EDT 1.0 {tablet_with_food} active Potassium Chl oride ER 20 MEQ eCW1 (Pending Sale To [facility]) Cephalexin 500 MG Oral Tablet Cephalexin 500 MG 11/29/2019 12:00:00 A M EDT active 1 tablet eCW1 ([facility]) Bactroban 2% UNK 11/29/2019 12:00:00 AM EDT activ e as directed eCW1 (Pending Sale To [facility]) Bactroban 2% UNK 11/29/2019 12:00:00 AM EDT activ e as directed eCW1 (Pending Sale To [facility]) Cephalexin 500 MG Oral Tablet Cephalexin 500 MG 11/29/2019 12:00:00 A M EDT active 1 tablet eCW1 ([facility]) gabapentin 100 MG Oral Capsule Gabapentin 100 MG Gabapentin 100 MG 11/08/2019 12:00:00 AM EDT active 1 capsul e eCW1 (Pending Sale To [facility]) gabapentin 100 MG Oral Capsule Gabapentin 100 MG Gabapentin 100 MG 11/08/2019 12:00:00 AM EDT active 1 capsul e eCW1 (Pending Sale To [facility]) gabapentin 100 MG Oral Capsule Gabapentin 100 MG Gabapentin 100 MG 11/08/2019 12:00:00 AM EDT active 1 capsul e eCW1 (Pending Sale To [facility]) 24 HR metoprolol succinate 50 MG Extende d Release Oral Tablet Metoprolol Succinate ER 50 MG Metoprolol Succinate ER 50 MG 10/19/2019 12:00:00 AM EDT active 1 tablet eCW1 ([facility]) Magnesium Oxide 400 MG Magnesium Oxide 400 MG 10/19/2019 12:00:00 AM E DT active 1 cap eCW1 ([facility]) Dupilumab 300 MG/2ML UNK 10/19/2019 12:00:00 AM EDT suspended 2 ml eCW1 (Pending Sale To [facility]) Dupilumab 300 MG/2ML UNK 10/19/2019 12:00:00 AM EDT suspended 2 ml eCW1 (Pending Sale To [facility]) Magnesium Oxide 400 MG Magnesium Oxide 400 MG 10/19/2019 12:00:00 AM E DT active 1 cap eCW1 ([facility]) Dupilumab 300 MG/2ML UNK 10/19/2019 12:00:00 AM EDT active 2 ml eCW1 (Pending Sale To [facility]) K Dur 20 MEQ UNK 10/19/2019 12:00:00 AM EDT activ e 1 tab eCW1 (Pending Sale To [facility]) Dupilumab 300 MG/2ML UNK 10/19/2019 12:00:00 AM EDT active 2 ml eCW1 (Pending Sale To [facility]) K Dur 20 MEQ UNK 10/19/2019 12:00:00 AM EDT activ e 1 tab eCW1 (Pending Sale To [facility]) Magnesium Oxide 400 MG Magnesium Oxide 400 MG 10/19/2019 12:00:00 AM E DT active 1 cap eCW1 ([facility]) K Dur 20 MEQ UNK 10/19/2019 12:00:00 AM EDT activ e 1 tab eCW1 (Pending Sale To [facility]) 24 HR metoprolol succinate 50 MG Extende d Release Oral Tablet Metoprolol Succinate ER 50 MG Metoprolol Succinate ER 50 MG 10/19/2019 12:00:00 AM EDT active 1 tablet eCW1 ([facility]) 24 HR metoprolol succinate 50 MG Extende d Release Oral Tablet Metoprolol Succinate ER 50 MG Metoprolol Succinate ER 50 MG 10/19/2019 12:00:00 AM EDT active 1 tablet eCW1 ([facility]) Doxycycline Monohydrate 100 MG Oral Capsule Doxycycline Villalba hydrate 08/20/2019 12:00:00 AM EST ORAL completed MEDENT ([facility]) valacyclovir 500 MG Oral Tablet [Valtrex] Valtrex 500 MG Oral Tablet Valtrex 500 MG Oral Tablet 06/22/2019 12:00:00 AM EST 1 ab orted valacyclovir 500 MG Oral Tablet [Valtrex] RENETTA ([facility]) loteprednol etabonate 0.005 MG/MG Ophtha lmic Gel [Lotemax] Lotemax 0.5% Ophthalmic Gel Lotemax 0.5% Ophthalmic Gel 02/24/2019 12:00:00 AM EDT aborted loteprednol etabonate 0.005 MG/M G Ophthalmic Gel [Lotemax] RENETTA ([facility]) doxycycline hyclate 50 MG Oral Tablet Doxycycline Hycl ate 50MG Oral Tablet Doxycycline Hyclate 50MG Oral Tablet 02/10/2019 12:00:00 AM EDT 1 aborted doxycycline hyclate 50 MG Oral T ablet RENETTA ([facility]) Insurance Providers Payer name Policy type / Coverage type Policy ID Covered libertarian ID Covered libertarian's relationship to zavala Policy Zavala Plan Information [facility] OPTIONS [id number] SP [id number] MEDICARE [id number] SP [id number] EMEDNY [id number] SP [id number] MEDICARE PART A -O [id number] 18 [id number] [facility] OPTIONS -O [id number] 18 [id number] MEDICARE PART A -I/P [id number] 18 [id number] MEDICARE PART A -O/P [id number] 18 [id number] [facility] OPTIONS -O/P [id number] 18 [id number] Medicare Part B [facility] Other 0 Se lf 0 WELLCARE [id number] SP [id number] MEDICARE C [id number] S [id number] AARP O [id number] S [id number] WELLCARE O [id number] S [id number] WELLCARE -O/P [id number] 18 [id number] MEDICARE [id number] SP [id number] WELLCARE - PHYSICIAN [id number] 18 [id number]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 [facility] (cu rrent) use of aspirin Diagnosis 03/07/2020 12:33:00 PM EDT [facility] [id number] Displacement of infusion catheter, initi al encounter Displacement of infusion catheter, initial encounter Diagnosis 03/07/2020 12:33:00 PM EDT [facility] Y939 Activity, unspecified Activity, unspecified Diagnosis [facility] Unspecified external cause status Unspecified ex ternal cause status Diagnosis 03/01/2020 05:44:00 PM [facility] B99599 Unspecified place in unspeci fied non-institutional (private) residence as the place of occurrence of the external cause Unspecified place in unspecified non-institutional (private) residence as the place of occurrence of the external cause Diagnosis 03/01/2020 05:44:00 PM [facility] D509 Iron deficiency anemia, unspecified Iron deficie ncy anemia, unspecified Diagnosis 03/01/2020 05:44:00 PM [facility] E8341 Hypermagnesemia Hypermagnesemia Diagnosis 03/01/2020 05:4 4:00 PM EDT [facility] N183 Chronic kidney disease, stage 3 (moderat e) Chronic kidney disease, stage 3 (moderate) Diagnosis 03/01/2020 [facility] [id number] Unspecified fall, initial encounter Unspecified fall, initial encounter Diagnosis 03/01/2020 05:44:00 PM [facility] Z74585M Laceration without foreign body of left elbow, initial encounter Laceration without foreign body of left elbow, initial encounter Diagnosis 03/01/2020 05:44:00 PM [facility] 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, both eyes Unqualified v isual loss, both eyes Diagnosis 03/01/2020 05:44:00 PM EDT [facility] 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 her sequelae of cerebral infarction Diagnosis 03/01/2020 05:44:00 PM EDT [facility] Z8673 Personal history of transien t ischemic attack (TIA), and cerebral infarction without residual deficits Personal history of transient ischemic attack (TIA), and cerebral infarction without residual deficits Diagnosis 03/01/2020 05:44:00 PM EDT [facility] 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 Diagnosis 03/01/2020 05:44:00 PM EDT [facility] H547 Unspecified visual loss Unspecified visual loss Diagno sis 03/01/2020 03:42:00 PM EDT [facility] N189 Chronic kidney disease, unspecified Chronic kidn ey disease, unspecified Diagnosis 03/01/2020 03:42:00 PM EDT [facility] Surgeries/Procedures Procedure Description Date Indications Data Source(s) Extracapsular extraction of lens (procedure) History o f extracapsular cataract extraction PCIOL OU 06/07/2020 12:00:00 AM MONAE JACKSON (Da jorge Willoughby MD [facility]) Intermediate Eye Exam Established Patient Intermediate Eye Exam Established Patient 06/07/2020 12:00:00 AM MONAE JACKSON (Michael Willoughby MD [facility]) Introduction of Electrolytic and Water B alance Substance into Peripheral Vein, Percutaneous Approach Introduction of Electrolytic and Water B alance Substance into Peripheral Vein, Percutaneous Approach 03/01/2020 12:00:00 AM EDT [facility] FINE NEEDLE ASPIRATION W/O IMAGING GUIDANCE 02/19/2020 12:00:00 AM EDT eC (Pending Sale To [facility]) RADEX SPINE CRV COMPL W/OBLQ&FLEX&/XTN STDS 01/05/2020 12:00:00 AM EDT [facility] ) X-Ray Hips Bilateral With Pelvis 3-4 Views 01/05/2020 12:00:00 AM EDT [facility] ([facility] ) Office Visit, Est Pt., Level 2 FC 12/20/2019 12:00:00 AM EDT [facility] (P[facility] To [facility]) TRANS CARE MGMT 7 DAY DISCH 12/20/2019 12:00:00 AM EDT eCW1 (Pending Sale To [facility]) Office Visit, Est Pt., Level 3 FC 11/24/2019 12:00:00 AM EDT eCW1 (Pending Sale To [facility]) Office Visit, Est Pt., Level 3 PC 11/24/2019 12:00:00 AM EDT eCW1 (Pending Sale To [facility]) TDAP 0.5mL (Boostrix) 11/24/2019 12:00:00 AM EDT eCW1 (Pending Sale To [facility]) IMMUNIZATION ADMIN 11/24/2019 12:00:00 AM EDT eCW1 (Pending Sale To [facility]) Office Visit, Est Pt., Level 4 PC 11/02/2019 12:00:00 AM EDT eCW1 (Pending Sale To [facility]) TRANS CARE MGMT 14 DAY DISCH 10/27/2019 12:00:00 AM ED T eCW1 (Pending Sale To [facility]) EXC TR-EXT MAL+KAREN 1.1-2 CM 10/26/2019 12:00:00 AM ED T eCW1 (Pending Sale To [facility]) CMPLX RPR S/A/L 2.6-7.5 CM 10/26/2019 12:00:00 AM EDT eCW1 (Pending Sale To [facility]) CMPLX RPR TRUNK 2.6-7.5 CM 10/10/2019 12:00:00 AM EDT eCW1 (Pending Sale To [facility]) TANGNTL BX SKIN SINGLE LES 09/05/2019 12:00:00 AM EST eCW1 (Pending Sale To [facility]) Results ID Date Data Source [id number] 07/02/2020 01:33:00 PM EST [facility] Name Value Range Interpretation Code Description Data Ynes rce(s) Supporting Document(s) SARS coronavirus 2 RNA [Presence] in Res piratory specimen by LEILA with probe detection [facility] This lab was ordered by [facility] a nd reported by [facility]. ID Date Data Source [id number] 06/28/2020 07:03:00 AM EST [facility] Name Value Range Interpretation Code Description Data Ynes rce(s) Supporting Document(s) BASIC METABOLIC PANEL [facility] BASIC METABOLIC PANEL Sodium [Moles/volume] in Serum or Plasma 142 mEq/L 134 - 153 [facility] Potassium [Moles/volume] in Serum or Plasma 4.0 mEq/L 3.6 - 5.0 [facility] Chloride [Moles/volume] in Serum or Plasma 105 mEq/L 98 - 107 [facility] Carbon dioxide, total [Moles/volume] in Serum or Plasma 29 MEQ/L 22 - 30 [facility] Glucose [Mass/volume] in Serum or Plasma 85 MG/DL 65 - 110 [facility] BUN 20 MG/DL 7 - 21 [facility] al Creatinine [Mass/volume] in Serum or Plasma 1.5 MG/DL 0.7 - 1.5 [facility] BUN/CREAT 13 8 - 27 [facility] Calcium [Mass/volume] in Serum or Plasma 8.7 MG/DL 8.4 - 10.2 [facility] Anion gap 3 in Serum or Plasma 8.0 mmol/L 8.0 - 16.0 [facility] AGE 79 yrs [facility] al AFR AMER GFR 58 mL/min [facility] NON-AA GFR 48 mL/min [facility] Male GFR Inter prentation 20-49 yrs [...] >32 mL/min Normal ID Date Data Source [id number] 06/26/2020 07:22:00 AM EST [facility] Name Value Range Interpretation Code Description Data Ynes rce(s) Supporting Document(s) BASIC METABOLIC PANEL [facility] BASIC METABOLIC PANEL Sodium [Moles/volume] in Serum or Plasma 142 mEq/L 134 - 153 [facility] Potassium [Moles/volume] in Serum or Plasma 4.2 mEq/L 3.6 - 5.0 [facility] Chloride [Moles/volume] in Serum or Plasma 107 mEq/L 98 - 107 [facility] Carbon dioxide, total [Moles/volume] in Serum or Plasma 29 MEQ/L 22 - 30 [facility] Glucose [Mass/volume] in Serum or Plasma 86 MG/DL 65 - 110 [facility] BUN 19 MG/DL 7 - 21 [facility] Creatinine [Mass/volume] in Serum or Plasma 1.3 MG/DL 0.7 - 1.5 [facility] BUN/CREAT 15 8 - 27 [facility] Calcium [Mass/volume] in Serum or Plasma 9.0 MG/DL 8.4 - 10.2 [facility] Anion gap 3 in Serum or Plasma 6.0 mmol/L 8.0 - 16.0 L [facility] AGE 79 yrs [facility] AFR AMER GFR >60 mL/min [facility] spital NON-AA GFR 57 mL/min [facility] vanessa Male GFR Inter prentation 20-49 yrs [...] >32 mL/min Normal ID Date Data Source [id number] 06/24/2020 09:05:00 AM EST [facility] Name Value Range Interpretation Code Description Data Ynes rce(s) Supporting Document(s) SARS coronavirus 2 RNA [facility] This lab was ordered by [facility] and reported by [facility]. ID Date Data Source [id number] 06/26/2020 06:16:00 AM EST [facility] Name Value Range Interpretation Code Description Data Ynes rce(s) Supporting Document(s) SARS-CoV-2, LEILA Not Detected Not Detected [facility] This nucleic acid amplification test was developed and its performancecharacteristics determined by [facility]. Nucleic acidamplification tests include PCR and [...] in this assay. ID Date Data Source [id number] 06/21/2020 07:26:00 AM [facility] Name Value Range Interpretation Code Description Data Ynes rce(s) Supporting Document(s) Magnesium [Mass/volume] in Serum or Plasma 2.1 MG/DL 1.7 - 2.2 [facility] ID Date Data Source [id number] 06/21/2020 07:26:00 AM [facility] Name Value Range Interpretation Code Description Data Ynes rce(s) Supporting Document(s) COMPREHENSIVE METABOLIC PANEL [facility] COMPREHENSIVE METABOLIC PANEL Sodium [Moles/volume] in Serum or Plasma 142 mEq/L 134 - 153 [facility] Potassium [Moles/volume] in Serum or Plasma 4.0 mEq/L 3.6 - 5.0 [facility] Chloride [Moles/volume] in Serum or Plasma 106 mEq/L 98 - 107 [facility] Carbon dioxide, total [Moles/volume] in Serum or Plasma 29 MEQ/L 22 - 30 [facility] Glucose [Mass/volume] in Serum or Plasma 93 MG/DL 65 - 110 [facility] BUN 15 MG/DL 7 - 21 [facility] Creatinine [Mass/volume] in Serum or Plasma 1.1 MG/DL 0.7 - 1.5 [facility] BUN/CREAT 14 8 - 27 [facility] al Protein [Mass/volume] in Serum or Plasma 6.0 G/DL 6.3 - 8.2 L [facility] Albumin [Mass/volume] in Serum or Plasma 4.3 G/DL 3.9 - 5.0 [facility] Globulin [Mass/volume] in Serum by calculation 1.7 GM/DL 2.4 - 3.2 L [facility] A/G RATIO 2.5 0.8 - 2.0 H [facility] al Calcium [Mass/volume] in Serum or Plasma 8.8 MG/DL 8.4 - 10.2 [facility] Bilirubin.total [Mass/volume] in Serum or Plasma <0.7 MG/DL 0.2 - 1.3 [facility] Alkaline phosphatase [Enzymatic activity/volume] in Serum or Plasma 178 U/L 38 - 126 H [facility] Aspartate aminotransferase [Enzymatic activity/volume] in Serum or Plasma 22 U/L 5 - 40 [facility] Alanine aminotransferase [Enzymatic activity/volume] in Seru m or Plasma 13 U/L 7 - 56 [facility] Anion gap 3 in Serum or Plasma 7.0 mmol/L 8.0 - 16.0 L [facility] AGE 79 yrs [facility] al NON-AA GFR >60 mL/min [facility] ital AFR AMER GFR >60 mL/min [facility] spital Male GFR In terprentation 20-49 [...] >32 mL/min Normal ID Date Data Source [id number] 06/21/2020 06:34:00 AM EST [facility] Name Value Range Interpretation Code Description Data Ynes rce(s) Supporting Document(s) CBC W/AUTOMATED DIFF [facility] COMPLETE BLOOD COUNT Leukocytes [#/volume] in Blood by Automated count 4.4 10^3/uL 4.2 - 1 1.0 [facility] Erythrocytes [#/volume] in Blood by Automated count 3.82 10^6/uL 4. 50 - 6.30 L [facility] Hemoglobin [Mass/volume] in Blood 10.2 g/dL 14.0 - 16.0 L [facility] Hematocrit [Volume Fraction] of Blood by Automated count 32.5 % 4 1.0 - 51.0 L [facility] Erythrocyte mean corpuscular volume [Entitic volume] by Auto mated count 85.1 fL 80.0 - 94.0 [facility] Erythrocyte mean corpuscular hemoglobin [Entitic mass] by Automated count 26.7 pg 27.0 - 34.0 L [facility] Erythrocyte mean corpuscular hemoglobin concentration [Mass/volume] by Automated count 31.4 g/dL 31.0 - 36.0 [facility] Erythrocyte distribution width [Ratio] by Automated count 17.1 % 11.5 - 14.8 H [facility] Platelets [#/volume] in Blood by Automated count 267 10^3/uL 150 - 45 0 [facility] Platelet mean volume [Entitic volume] in Blood by Automated count 10.3 fL 7.4 - 10.4 [facility] Neutrophils/100 leukocytes in Blood by Automated count 53.9 % 37. 0 - 80.0 [facility] Lymphocytes/100 leukocytes in Blood by Manual count 22.8 % 25.0 - 40.0 L [facility] Monocytes/100 leukocytes in Blood by Automated count 15.5 % 3.0 - 8.0 H [facility] Eosinophils/100 leukocytes in Blood by Automated count 6.6 % 0.0 - 7.0 [facility] Basophils/100 leukocytes in Blood by Automated count 0.7 % 0.0 - 2.0 [facility] %IG 0.5 % 0.0 - 0.0 H [facility] %NRBC 0.0 % 0.0 - 0.0 [facility] al Neutrophils [#/volume] in Blood by Automated count 2.37 10^3/uL 2.00 - 6.90 [facility] Lymphocytes [#/volume] in Blood by Automated count 1.00 10^3/uL 0.60 - 3.40 [facility] Monocytes [#/volume] in Blood by Automated count 0.68 10^3/uL 0.00 - 0.90 [facility] Eosinophils [#/volume] in Blood by Automated count 0.29 10^3/uL 0.00 - 0.70 [facility] Basophils [#/volume] in Blood by Automated count 0.03 10^3/uL 0.00 - 0.20 [facility] #IG 0.02 10^3/uL 0.00 - 0.10 [facility] #NRBC 0.00 10^3/uL 0.00 - 0.00 [facility] MANUAL DIFF NOT INDICATED [facility] RBC MORPH NOT INDICATED [facility] spital ID Date Data Source [id number] 06/20/2020 02:23:00 PM EST [facility] [address] [place] [address] PHONE: [phone] FAX: [phone] Name .................. : USHA Armenta Acct Number.................. : [id number] ROOM. ................. : 102-1 Number ................... : [id number] Stay type ............. : O/P Discharge Date......... ... : Admit Date ......... : 06/19/20 Admit Phys .................... : ALYSON OLSEN Date of ....... : 1940 Family Phys ................... : DINO Phone .................. : [phone] Age ................................ : 79 Film# .................. .:[id number] Sex ................................. : M Unsigned transcriptions are preliminary reports and do not represent a medical or legal document CAROTID [id number] COMPLETE:06/19/20 20:17 ADB 86728 (REASON FOR PROCEDURE :SYNCOPE CAROTID DOPPLER ULTRASOUND: [...] By Devin Hatfield M.D. , 06/20/20 14:23, HIY Transcribe Initials: RESHMA , Transcribe Date: 06/20/20 00:40, Dictation Date: Copy for: MILEY MATA via [employer] Copy for: EMERGENCY DEPT via modem Copy for: 710 MED REC Page 1 of 1 Name Value Range Interpretation Code Description Data Ynes rce(s) Supporting Document(s) ID Date Data Source [id number] 06/20/2020 01:57:00 [place] [address] PHONE: [phone] FAX: [phone] [facility] .................. [facility] [id number] ROOM. ................. : 102-1 MR Number ................... : [id number] Stay type ............. : O/P Discharge Date......... ... : Admit Date ......... : 06/19/20 Admit Phys .................... : ALYSON MAT Date of ....... : 1940 Family Phys ................... : [employer] Phone .................. : [phone] Age ................................ : 79 Film# .................. .:[id number] Sex ................................. : M Unsigned transcriptions are preliminary reports and do not represent a medical or legal document CT LUMBAR SP W/O CONT [id number] COMPLETE:06/19/20 12:30 LUPE 29101 Reason(s): syncope, fall, back pain CT OF [...] MD , 06/20/20 13:57, KGG Transcribe Initials: RESHMA , Transcribe Date: 06/20/20 01:36, Dictation Date: Page 1 of 2 [place] [address] PHONE: [phone] FAX: [phone] Name .................. : USHA Armenta Acct Number.................. : [id number] ROOM. ................. : 102-1 MR Number ................... : [id number] Stay type ............. : O/P Discharge Date......... ... : Admit Date ......... : 06/19/20 Admit Phys .................... : ALYSON OLSEN Date of ....... : 1940 Family Phys ................... : DINO Phone .................. : [phone] Age ................................ : 79 Film# .................. .:[id number] Sex ................................. : M Unsigned transcriptions are preliminary reports and do not represent a medical or legal document CT LUMBAR SP W/O CONT [id number] COMPLETE:06/19/20 12:30 LUPE 25566 Reason(s): syncope, fall, back pain Copy for: EMERGENCY DEPT via modem Copy for: 710 MED REC Page 2 of 2 Name Value Range Interpretation Code Description Data Ynes rce(s) Supporting Document(s) ID Date Data Source [id number] 06/20/2020 01:56:00 PM [facility] [address] [place] [address] PHONE: [phone] FAX: [phone] Name .................. : USHA Armenta Acct Number.................. : [id number] ROOM. ................. : 102-1 Number ................... : [id number] Stay type ............. : O/P Discharge Date......... ... : Admit Date ......... : 06/19/20 Admit Phys .................... : ALYSON OLSEN Date of ....... : 1940 Family Phys ................... : [employer] Phone .................. : Age ................................ : 79 Film# .................. .:[id number] Sex ................................. : M Unsigned transcriptions are preliminary reports and do not represent a medical or legal document CT CERV SPINE W/O CONTRAS [id number] COMPLETE:06/19/20 12:30 LUPE 49579 Reason(s): Pain CT SCAN OF THE CERVICAL [...] rce(s) Supporting Document(s) ID Date Data Source [id number] 06/20/2020 01:56:00 PM EST [facility] [address] [place] [address] PHONE: [phone] FAX: [phone] Name .................. : [facility] [id number] ROOM. ................. : 102-1 MR Number ................... : [id number] Stay type ............. : O/P Discharge Date......... ... : Admit Date ......... : 06/19/20 Admit Phys .................... : ALYSON MAT Date of ....... : 1940 Family Phys ................... : [employer] Phone .................. : [phone] Age ................................ : 79 Film# .................. .:[id number] Sex ................................. : M Unsigned transcriptions are preliminary reports and do not represent a medical or legal document CT HEAD W/O CONTRAST [id number] COMPLETE:06/19/20 12:30 LUPE [id number] Reason(s): Syncope CT OF THE HEAD WITHOUT [...] rce(s) Supporting Document(s) ID Date Data Source [id number] 06/20/2020 01:56:00 PM [facility] [address] [place] [address] PHONE: [phone] FAX: [phone] Name .................. : USHA Armenta Acct Number.................. : [id number] ROOM. ................. : 102-1 MR Number ................... : [id number] Stay type ............. : O/P Discharge Date......... ... : Admit Date ......... : 06/19/20 Admit Phys .................... : ALYSON OLSEN Date of ....... : 1940 Family Phys ................... : DINO Phone .................. : [phone] Age ................................ : 79 Film# .................. .:[id number] Sex ................................. : M Unsigned transcriptions are preliminary reports and do not represent a medical or legal document CHEST PORTABLE [id number] COMPLETE:06/19/20 11:27 71961 Reason(s): syncope PORTABLE CHEST X-RAY: FINDINGS: The [...] for: EMERGENCY DEPT via modem Copy for: [address] [place] [address] REC Page 1 of 1 Name Value Range Interpretation Code Description Data Ynes rce(s) Supporting Document(s) ID Date Data Source [id number] 06/20/2020 11:29:00 AM [facility] Name Value Range Interpretation Code Description Data Ynes rce(s) Supporting Document(s) TROPONIN T <0.01 NG/ML 0.00 - 0.10 [facility]ital TROPONIN T0.1 ng/ml Recommended as the c linical threshold value forTroponin T. ID Date Data Source [id number] 06/20/2020 07:25:00 AM [facility] Name Value Range Interpretation Code Description Data Ynes rce(s) Supporting Document(s) COMPREHENSIVE METABOLIC PANEL [facility] COMPREHENSIVE METABOLIC PANEL Sodium [Moles/volume] in Serum or Plasma 144 mEq/L 134 - 153 [facility] Potassium [Moles/volume] in Serum or Plasma 3.9 mEq/L 3.6 - 5.0 [facility] Chloride [Moles/volume] in Serum or Plasma 109 mEq/L 98 - 107 H [facility] Carbon dioxide, total [Moles/volume] in Serum or Plasma 28 MEQ/L 22 - 30 [facility] Glucose [Mass/volume] in Serum or Plasma 83 MG/DL 65 - 110 [facility] BUN 15 MG/DL 7 - 21 [facility] Creatinine [Mass/volume] in Serum or Plasma 1.2 MG/DL 0.7 - 1.5 [facility] BUN/CREAT 13 8 - 27 [facility] Protein [Mass/volume] in Serum or Plasma 5.6 G/DL 6.3 - 8.2 L [facility] Albumin [Mass/volume] in Serum or Plasma 4.1 G/DL 3.9 - 5.0 [facility] Globulin [Mass/volume] in Serum by calculation 1.5 GM/DL 2.4 - 3.2 L [facility] A/G RATIO 2.7 0.8 - 2.0 H [facility] Calcium [Mass/volume] in Serum or Plasma 8.7 MG/DL 8.4 - 10.2 [facility] Bilirubin.total [Mass/volume] in Serum or Plasma <0.7 MG/DL 0.2 - 1.3 [facility] Alkaline phosphatase [Enzymatic activity/volume] in Serum or Plasma 173 U/L 38 - 126 H [facility] Aspartate aminotransferase [Enzymatic activity/volume] in Serum or Plasma 22 U/L 5 - 40 [facility] Alanine aminotransferase [Enzymatic activity/volume] in Seru m or Plasma 12 U/L 7 - 56 [facility] Anion gap 3 in Serum or Plasma 7.0 mmol/L 8.0 - 16.0 L [facility] AGE 79 yrs [facility] NON-AA GFR >60 mL/min [facility] ital AFR AMER GFR >60 mL/min [facility] Ho spital Male GFR In terprentation 20-49 [...] >32 mL/min Normal ID Date Data Source [id number] 06/20/2020 07:07:00 AM EST [facility] Name Value Range Interpretation Code Description Data Ynes rce(s) Supporting Document(s) CBC W/AUTOMATED DIFF [facility] COMPLETE BLOOD COUNT Leukocytes [#/volume] in Blood by Automated count 3.4 10^3/uL 4.2 - 1 1.0 L [facility] Erythrocytes [#/volume] in Blood by Automated count 3.68 10^6/uL 4. 50 - 6.30 L [facility] Hemoglobin [Mass/volume] in Blood 9.9 g/dL 14.0 - 16.0 L [facility] Hematocrit [Volume Fraction] of Blood by Automated count 31.3 % 4 1.0 - 51.0 L [facility] Erythrocyte mean corpuscular volume [Entitic volume] by Auto mated count 85.1 fL 80.0 - 94.0 [facility] Erythrocyte mean corpuscular hemoglobin [Entitic mass] by Automated count 26.9 pg 27.0 - 34.0 L [facility] Erythrocyte mean corpuscular hemoglobin concentration [Mass/volume] by Automated count 31.6 g/dL 31.0 - 36.0 [facility] Erythrocyte distribution width [Ratio] by Automated count 17.1 % 11.5 - 14.8 H [facility] Platelets [#/volume] in Blood by Automated count 241 10^3/uL 150 - 45 0 [facility] Platelet mean volume [Entitic volume] in Blood by Automated count 10.8 fL 7.4 - 10.4 H [facility] Neutrophils/100 leukocytes in Blood by Automated count 50.9 % 37. 0 - 80.0 [facility] Lymphocytes/100 leukocytes in Blood by Manual count 25.9 % 25.0 - 40.0 [facility] Monocytes/100 leukocytes in Blood by Automated count 13.8 % 3.0 - 8.0 H [facility] Eosinophils/100 leukocytes in Blood by Automated count 7.6 % 0.0 - 7.0 H [facility] Basophils/100 leukocytes in Blood by Automated count 0.9 % 0.0 - 2.0 [facility] %IG 0.9 % 0.0 - 0.0 H [facility] Hospit al %NRBC 0.0 % 0.0 - 0.0 [facility] al Neutrophils [#/volume] in Blood by Automated count 1.73 10^3/uL 2.00 - 6.90 L [facility] Lymphocytes [#/volume] in Blood by Automated count 0.88 10^3/uL 0.60 - 3.40 [facility] Monocytes [#/volume] in Blood by Automated count 0.47 10^3/uL 0.00 - 0.90 [facility] Eosinophils [#/volume] in Blood by Automated count 0.26 10^3/uL 0.00 - 0.70 [facility] Basophils [#/volume] in Blood by Automated count 0.03 10^3/uL 0.00 - 0.20 [facility] #IG 0.03 10^3/uL 0.00 - 0.10 [facility] H ospital #NRBC 0.00 10^3/uL 0.00 - 0.00 [facility] o[facility] MANUAL DIFF NOT INDICATED [facility] RBC MORPH NOT INDICATED [facility] Ho spital ID Date Data Source [id number] 06/20/2020 04:51:00 AM EST [facility] Name Value Range Interpretation Code Description Data Ynes rce(s) Supporting Document(s) [facility] SOURCE R [facility] al COLOR yellow NORMAL: Yellow [facility] ospital CLARITY clear NORMAL: Clear [facility] Ho spital Specific gravity of Urine by Test strip 1.015 1.001 - 1.030 [facility] pH 6 5 - 9 [facility] al Glucose [Mass/volume] in Urine by Test strip NORM NORMAL: Negat [facility] Bilirubin.total [Presence] in Urine by Test strip NEG NORMAL: Negative [facility] Ketones [Presence] in Urine by Test strip NEG NORMAL: Negative [facility] Protein [Mass/volume] in Urine by Test strip 15 NORMAL: Negat [facility] Nitrite [Presence] in Urine by Test strip NEG NORMAL: Negative [facility] BLOOD NEG NORMAL: Negative [facility] Leukocyte esterase [Presence] in Urine by Test strip NEG GINA L: Negative [facility] Urobilinogen [Mass/volume] in Urine by Test strip NOR less reji n 1.0 mg/dL [facility] MICROSCOPIC See Below [facility] ital Erythrocytes [#/volume] in Urine by Test strip 0 - 1 NORMAL: NON E SEEN [facility] EPITHELIAL FEW NORMAL: NONE SEEN [facility] Amorphous sediment [Presence] in Urine sediment by Light ray roscopy RARE NORMAL: NONE SEEN [facility] ID Date Data Source [id number] 06/19/2020 08:02:00 [place] [address] RESPIRATORY CARE REPORT ==== ---------NAME------- NUMBER SEX AGE ADMIT DISC. XRAY# F/C VONDA LIN Armenta [id number] M 79 06/19/[id number] MB4 O/P DATE OF : 1940 M/R# [id number] PH#: [phone] 102-1 LOCATION: EMERGENCY DEPT EKG 31541 COMP LETE:06/19/20 13:26 RV 28138 PHYSICIAN: ALYSON FAUST Name Value Range Interpretation Code Description Data Ynes rce(s) Supporting Document(s) ID Date Data Source [id number] 06/19/2020 10:58:00 AM EST [facility] 1 OrderSheet [facility] Emergency Department [address] [place] [address] Phone #: ext- [phone] 06/19/2020 10:53 Patient: LIN MCRAE [facility]#: [id number] Sex: M : 1940 Age: 79yWEIGHT:83.9 kg (S) HEIGHT:65 inches (S) BMI:30.8ALLERGIES: CiclopiroxCHIEF COMPLAINT: syncope, [id number]: Syncope, BackacheLAB ORDERSOrder Description Priority Entered Acknowledged [...] M.D.;DIAGNOSTIC STUDY ORDERSOrder Description Priority Entered Acknowledged [facility]edHol[facility] Port[facility] 1 STAT 11:06/19/2020 11:41 Gee,View Justin Perez(Oxygen?(No)) Gentry; Reason for Study: syncopeCT Head W/O Cont STAT 11:27 06/19/2020 11:44 Gee(Oxygen?(No)) Justin Perez M.D.; Reason for Study: SyncopeCT Spine Cervical STAT 11:06/19/2020 11:44 Gee,W/O Cont Justin Perez 2 OrderSheet [facility] Emergency Department [address] [place] [address] Phone #: ext- [phone] 06/19/2020 10:53 Patient: LIN MCRAE [facility]#: [id number] Sex: M : 1940 Age: 79y(Oxygen?(No)) M.D.; Reason for Study: Pain, Trauma/InjuryCT LUMBAR SP STAT 11:27 06/19/2020 11:44 Gee,W/O CONT Turrin, Justin Yanci(Oxygen?(No)) Gentry;(IV?(Yes)) Reason for Study: syncope, fall, back painMEDICATION/IV/DRIP/FLUID ORDERSOrder Description Priority Entered Acknowledged InitialedNS IV 500 mL 11:28 06/19/2020 Ack'd: 11:51 11:52 Gee,Bolus: : Bolus 500 Turrin, Justin Gee, Yanci KatjosefnmL, then 150 mL/hr M.DKimberly;(X1)Ofirmev IV 1000 mg 12:31 06/19/2020 12:35 Gee(NOW x1, Infuse Turrin, Justin Katelynover 15 minutes) Gentry;Morphine IVP 4 mg 14:24 06/19/2020 14:27 Gee(HIGH ALERT Turrin, Justin KatelynMEDICATION) Gentry;GENERAL ORDERSOrder Description Priority Entered Acknowledged InitialedBlood Pressure 11:27 06/19/2020 11:32 Maicol Thompson Riccardo R.N. MGege;Dry Cleaning Machine Operator 11:27 06/19/2020 11:32 Charlotte Thompson(continuous) Justin Perez.N. MGege;EKG 11:27 06/19/2020 11:32 Charlotte Thompson Riccardo R.N. MGege;NPO 11:27 06/19/2020 11:32 Charlotte Thompson Riccardo R.N. MGege;Obtain Old EKG 11:27 06/19/2020 11:32 Charlotte Thompson Riccardo R.N. MGege;Oxygen titrate to 11:27 06/19/2020 11:32 Charlotte Thompson92% Justin Perez R.N., M.D.;Pulse oximeter 11:27 06/19/2020 11:32 Charlotte Thompson(Continuous) Justin Perez R.N. 3 OrderSheet [facility] Emergency Department [address] [place] [address] Phone #: [phone]- [phone] 06/19/2020 10:53 Patient: LIN MCRAE Sex: M [...] rce(s) Supporting Document(s) ID Date Data Source [id number] 06/19/2020 10:58:00 AM EST [facility] 1 Medication Reconciliation Report [facility] Emergency Department [address] [place] [address] Phone #: ext- [phone] 06/19/2020 10:53 Patient: LIN MCRAE Sex: Geovany : 1940 Age: 79yWeight: 83.9 kgHeight/Length: 65 [...] balance tears solution 2 Medication Reconciliation Report [facility] Emergency Department [address] [place] [address] Phone #: ext- [phone] 06/19/2020 10:53 Patient: LIN MCRAE Sex: Geovany : 1940 Age: 79y Brawley 3-6-9 Oral 1200mg, daily Omeprazole Oral (40 [...] rce(s) Supporting Document(s) ID Date Data Source [id number] 06/19/2020 10:58:00 AM [facility] 1 Medication Administration Record [facility] Emergency Department [address] [place] [address] Phone #: ext- [phone] 06/19/2020 10:53 Patient: LIN MCRAE Sex: M : 1940 Age: 79yWeight: 83.9 kgHeight/Length: 65 inBMI: 30.8ALLERGIES: Ciclopirox Date/Time Medication Administered Medication OrderedStart NS * NS IV 500 mL Bolus: : Bolus 93722:[id number] 06/19/2020 Dose: 1000 * IV Fluids mL, [...] rce(s) Supporting Document(s) ID Date Data Source [id number] 06/19/2020 10:58:00 AM [facility] 1 General Instructions [facility] Emergency Department [address] [place] [address] Phone #: ext- [phone] 06/19/2020 10:53 Patient: LIN MCRAE Sex: M : 1940 Age: 79yVasovagal syncope.Chronic nontraumatic lumbar back pain.(Electronically signed by Justin Perez M.D. 06/19/2020 16:43) Name Value Range Interpretation Code Description Data Ynes rce(s) Supporting Document(s) ID Date Data Source [id number] 06/19/2020 10:58:00 AM EST [place] [address] Clinical Report - Nurses [facility] Emergency Department [address] [place] [address] Phone #: ext- [phone] 06/19/2020 10:53 Patient: LIN MCRAE Sex: M [...] headache. ( back pain, neck pain). Treatment INDUSTRIAL CHEMIST: None. SEPSIS SCREEN: Sepsis Screen negative. No suspected or confirmed signs of infection present. DEVIN COMA SCORE: 14- eyes open- spontaneous (4); best verbal response- confused (4); best motor response- obeys commands (6). --11:07 11/18/20 Charlotte Thompson R.N. 10:58 06/19/20. BP: 143/89. [...] 1 tablet, at bedtime. --11:14 06/19/20 Charlotte Thompsno R.N. Toprol XL Oral (Tablet Extended Release [...] tears solution. --11:16 06/19/20 Charlotte Thompson R.N. Brawley 3-6-9 Oral 1200mg, daily. --11:16 06/19/20 Charlotte Thompson R.N. Pred Forte Ophthalmic, 4x a day. --11:06/19/20 Charlotte Thompson R.N. 2 Clinical Report - Nurses [facility] Emergency Department [address] [place] [address] Phone #: ext- [phone] 06/19/2020 10:53 Patient: LIN MCRAE Sex: M : 1940 Age: 79ytiZANidine HCl Oral (Tablet 2 mg), q8h. --11:17 06/19/20 Charlotte Thompson R.N.Valtrex Oral (Tablet 500 mg) 1 tablet, daily. --11:06/19/20 Charlotte Thompson R.N.Allopurinol Oral (Tablet 100 mg) 1 tablet, daily. --11:06/19/20 Charlotte Thompson R.N.amLODIPine Besylate Oral (Tablet 5 [...] Oral (Tablet 10 mg), daily at bedtime. --11:21 11/18/20 Charlotte Thompson R.N.Omeprazole Oral (Capsule Delayed Release 40 mg), daily. --11:06/19/20 Charlotte Thompson R.N.AllergiesCiclopirox. --11:06/19/20 Charlotte Thompson R.N.PROBLEMS:Spinal Stenosis.Hyperlipidemia.Gout.Essential Hypertension.Epilepsy.Dysphagia.COPD - Chronic Obstructive Pulmonary Disease .Constipation.Congestive Heart Failure.Adjustment disorder with mixed disturbance of emotions AND conduct.GERD.Zoster.CVA - Cerebrovascular Accident.Cancer.Blind.Fall.Renal Insufficiency.Myocardial Infarction.Leukemia. --11:06/19/20 Charlotte Thompson R.N.ADDITIONAL SURGERIES:Appendectomy.Infusaport.Knee replacement, b/l.Mastectomy.Testis excision. --11:06/19/20 Charlotte Thompson R.N.History 3 Clinical Report - Nurses [facility] Emergency Department [address] [place] [address] Phone #: ekb- [phone] 06/19/2020 10:53 Patient: LIN MCRAE Sex: Geovany [...] directive. A copy was requested. (DNR/DNI per alf). --11:24 06/19/20 Charlotte Thompson R.N.PHYSICAL ASSESSMENT late [...] 2 seconds. 4 Clinical Report - Nurses [facility] Emergency Department [address] [place] [address] Phone #: ext- [phone] 06/19/2020 10:53 [id number] Sex: [facility] : 1940 Age: 79y GI / : Abdomen soft and nontender. SKIN: Skin is warm. --11:35 06/19/20 Yanci Flynn 11:00 06/19/20. BP: 143/89. MAP: 107. Temp: 98 F. --11:35 06/19/20 Yanci Flynn ( +2 PITTING EDEMA IN LOWER EXTREMITIES FROM ANKLE TO KNEE.). --11:40 06/19/20 Yanci Flynn.NURSING PROGRESS NOTES teletypesetter monitor and NIBP monitor placed on patient; monitor [...] 100%. Temp: 98.1 F. Pain level now: 610. Patient is conversant and smiling. (states chronic pain in neck and back). It has been constant. --11:39 06/19/20 Yanci Flynn Patient transported to [place] by stretcher with calibration technician. --11:45 06/19/20 Yanci Flynn 11:40 06/19/2020 NS * IV Fluids 1000 500ML/HR --11:52 06/19/20 Yanci Flynn Patient returned from radiology by stretcher with calibration technician. --11:57 06/19/20 Yanci Flynn The patient [...] hazard. --12:31 06/19/20 Yanci Flynn 12:35 06/19/2020 [facility] * Drip IV 1000 IVPB OVER 15MIN --12:35 06/19/20 Yanci Flynn 5 Clinical Report - Nurses [facility] Emergency Department [address] [place] [address] Phone #: ext- [phone] 06/19/2020 10:53 Patient: LIN MCRAE Sex: M : 1940 Age: 79y12:50 06/19/2020 [facility] Drip IV Discontinued: completed. --13:25 06/19/20 Pedro [...] cords, tubes, and lines to prevent fall hazard.--14:06/19/20 Pedro Flynn4:08 06/19/2020 NS IV Fluids Rate [...] warning. Verbalizes 6 Clinical Report - Nurses [facility] Emergency Department [address] [place] [address] Phone #: ext- [phone] 06/19/2020 10:53 Patient: [...] belongings was witnessed by 1 nurse and cut file clerk. --15:54 06/19/20 Yanci Flynn 15:40 06/19/20. BP: 136/82. MAP: 100. HR: 79. RR: 17. O2 saturation: 99%. Temp: 98.3 F. Pain level now: 09/11. --15:54 06/19/20 Yanci Flynn.Locked/Released at 06/19/2020 15:54 by Yanci Flynn, Name Value Range Interpretation Code Description Data Ynes rce(s) Supporting Document(s) ID Date Data Source [id number] 06/19/2020 10:58:00 AM EST [facility] 1 Clinical Report - Physicians/Mid Levels [facility] Emergency Department [address] [place] [address] Phone #: ext- [phone] 06/19/2020 10:53 Patient: LIN MCRAE Sex: M : 1940 Age: 79y Time Seen: 11:01 06/19/2020; initial patient contact. Arrived- By ambulance. Historian- patient, EMS personnel and alf nurse and records. Disposition decision: 13:15 06/19/2020.HISTORY [...] back pain, but worse today; pt is HI pt and per report, is DNR/DNI and BP was low at HI INDUSTRIAL CHEMIST). Similar symptoms previously. None. Recent medical care: [...] Epilepsy. 2 Clinical Report - Physicians/Mid Levels [facility] Emergency Department [address] [place] [address] Phone #: ext- [phone] 06/19/2020 10:53 Patient: [...] 2 mg), q8h.Pred Forte Ophthalmic, 4x a day.Brawley 3-6-9 Oral 1200mg, daily.Natrual balance tears solution.MagOx [...] External.Allergies:Ciclopirox. 3 Clinical Report - Physicians/Mid Levels [facility] Emergency Department [address] [place] [address] Phone #: ext- [phone] 06/19/2020 10:53 Patient: LIN MCRAE Sex: M : 1940 Age: 79ySOCIAL HISTORY Former smoker, end date 2002. No alcohol use or drug use. Resides in a alf.ADDITIONAL NOTES The nursing notes have been reviewed [...] ischemia lt occipital lobe, no change from 04-11-20). Head CT performed without contrast. The study was interpreted by the radiologist. Interpretation time: 12:55 06/19/2020. CT L- Spine: No acute findings. Degenerative joint disease. No fracture. Note- see report. The study was interpreted by the radiologist. Interpretation time: 12:57 06/19/2020. Laboratory Tests: Laboratory tests have been ordered, with results reviewed and considered in the 4 Clinical Report - Physicians/Mid Levels [facility] Emergency Department [address] [place] [address] Phone #: ext- [phone] 06/19/2020 10:53 Patient: [...] 40) 5 Clinical Report - Physicians/Mid Levels [facility] Emergency Department [address] [place] [address] Phone #: ext- [phone] 06/19/2020 10:53 Patient: [...] Pulmonary Embolus, T issue heart valves, Acute [place] Atrial Fibrillation, Valvular heart disease and recurrent Systemic Embolism. -International Normalized Ratio (INR): 2.5 - 3.5 for Mechanical Prosthetic valve. Troponin-T: (NATHANAEL: 06/19/2020 12:13) ( [facility] 06/19/2020 12:49) Final results Test Result Flag Units (Reference) TROPONIN T <0.01 NG/ML (0.00 - 0.10) TROPONIN T0.1 ng/ml Recommended as the clinical threshold value forTroponin T. CT Head W/O Cont: (NATHANAEL: 06/19/2020 11:27) ( [facility] 06/19/2020 12:30) In Progress CT HEAD W/O CONTRAST Reason(s): Syncope TRANSPORTATION: S IV? O2? Oxygen?(No) Room: ED CT Spine Cervical W/O Cont: (NATHANAEL: 06/19/2020 11:27) ( [facility] 06/19/2020 12:30) In Progress CT CERV SPINE W/O CONTRAS Reason(s): Pain TRANSPORTATION: S IV? O2? Oxygen?(No) Room: ED CT LUMBAR SP W/O CONT: (NATHANAEL: 06/19/2020 11:27) ( [facility] 06/19/2020 12:30) In Progress CT LUMBAR SP W/O CONT Reason(s): syncope, fall, back pain TRANSPORTATION: S IV? IV?(Yes) O2? Oxygen?(No) Ro. 6 Clinical Report - Physicians/Mid Levels [facility] Emergency Department [address] [place] [address] Phone #: ext- [phone] 06/19/2020 10:53 Patient: LIN MCRAE [facility]#: [id number] Sex: M : 1940 Age: 79yPROGRESS AND [...] rce(s) Supporting Document(s) ID Date Data Source [id number] 06/19/2020 12:57:00 PM [facility] Name Value Range Interpretation Code Description Data Ynes rce(s) Supporting Document(s) BNP 648 PG/ML 0 - 450 H [facility] al ID Date Data Source [id number] 06/19/2020 12:57:00 PM [facility] Name Value Range Interpretation Code Description Data Ynes rce(s) Supporting Document(s) COMPREHENSIVE METABOLIC PANEL [facility] COMPREHENSIVE METABOLIC PANEL Sodium [Moles/volume] in Serum or Plasma 141 mEq/L 134 - 153 [facility] Potassium [Moles/volume] in Serum or Plasma 4.7 mEq/L 3.6 - 5.0 [facility] Chloride [Moles/volume] in Serum or Plasma 108 mEq/L 98 - 107 H [facility] Carbon dioxide, total [Moles/volume] in Serum or Plasma 25 MEQ/L 22 - 30 [facility] Glucose [Mass/volume] in Serum or Plasma 98 MG/DL 65 - 110 [facility] BUN 17 MG/DL 7 - 21 [facility] Creatinine [Mass/volume] in Serum or Plasma 1.3 MG/DL 0.7 - 1.5 [facility] BUN/CREAT 13 8 - 27 [facility] Protein [Mass/volume] in Serum or Plasma 6.4 G/DL 6.3 - 8.2 [facility] Albumin [Mass/volume] in Serum or Plasma 4.1 G/DL 3.9 - 5.0 [facility] Globulin [Mass/volume] in Serum by calculation 2.3 GM/DL 2.4 - 3.2 L [facility] A/G RATIO 1.8 0.8 - 2.0 [facility] Calcium [Mass/volume] in Serum or Plasma 8.8 MG/DL 8.4 - 10.2 [facility] Bilirubin.total [Mass/volume] in Serum or Plasma <0.7 MG/DL 0.2 - 1.3 [facility] Alkaline phosphatase [Enzymatic activity/volume] in Serum or Plasma 180 U/L 38 - 126 H [facility] Aspartate aminotransferase [Enzymatic activity/volume] in Serum or Plasma 24 U/L 5 - 40 [facility] Alanine aminotransferase [Enzymatic activity/volume] in Seru m or Plasma 13 U/L 7 - 56 [facility] Anion gap 3 in Serum or Plasma 8.0 mmol/L 8.0 - 16.0 [facility] AGE 79 yrs [facility] al NON-AA GFR 57 mL/min [facility] AFR AMER GFR >60 mL/min [facility] spital Male GFR In terprentation 20-49 yrs [...] >32 mL/min Normal ID Date Data Source [id number] 06/19/2020 12:55:00 PM [facility] Name Value Range Interpretation Code Description Data Ynes rce(s) Supporting Document(s) Lipase [Enzymatic activity/volume] in Serum or Plasma 14 U/L 13 - 60 [facility] ID Date Data Source [id number] 06/19/2020 12:49:00 PM [facility] Name Value Range Interpretation Code Description Data Ynes rce(s) Supporting Document(s) TROPONIN T <0.01 NG/ML 0.00 - 0.10 [facility] ospital TROPONIN T0.1 ng/ml Recommended as the c linical threshold value forTroponin T. ID Date Data Source [id number] 06/19/2020 12:36:00 PM [facility] Name Value Range Interpretation Code Description Data Ynes rce(s) Supporting Document(s) Prothrombin time (PT) 14.0 SECONDS 11.0 - 15.5 [facility] INR in Platelet poor plasma by Coagulation assay 1.07 0.93 - 1. 23 [facility] aPTT in Blood by Coagulation assay 27.7 SECONDS 24.8 - 36.7 [facility] \\BLDo\\INR INTERPRETATION\\BLDx\\ Therapeutic range for Coumadin and related oral anticoagulants. - International Normalized Ratio (INR): 2.0 - 3.0 for Venous Thrombosis, Pulmonary Embolus, Tissue heart valves, Acute [place] Atrial Fibrillation, Valvular heart disease and recurrent Systemic Embolism. - International Normalized Ratio (INR): 2.5 - 3.5 for Mechanical Prosthetic valve. ID Date Data Source [id number] 06/19/2020 12:28:00 PM [facility] Name Value Range Interpretation Code Description Data Ynes rce(s) Supporting Document(s) CBC W/AUTOMATED DIFF [facility] COMPLETE BLOOD COUNT Leukocytes [#/volume] in Blood by Automated count 4.8 10^3/uL 4.2 - 1 1.0 [facility] Erythrocytes [#/volume] in Blood by Automated count 3.79 10^6/uL 4. 50 - 6.30 L [facility] Hemoglobin [Mass/volume] in Blood 10.3 g/dL 14.0 - 16.0 L [facility] Hematocrit [Volume Fraction] of Blood by Automated count 32.5 % 4 1.0 - 51.0 L [facility] Erythrocyte mean corpuscular volume [Entitic volume] by Auto mated count 85.8 fL 80.0 - 94.0 [facility] Erythrocyte mean corpuscular hemoglobin [Entitic mass] by Automated count 27.2 pg 27.0 - 34.0 [facility] Erythrocyte mean corpuscular hemoglobin concentration [Mass/volume] by Automated count 31.7 g/dL 31.0 - 36.0 [facility] Erythrocyte distribution width [Ratio] by Automated count 17.0 % 11.5 - 14.8 H [facility] Platelets [#/volume] in Blood by Automated count 246 10^3/uL 150 - 45 0 [facility] Platelet mean volume [Entitic volume] in Blood by Automated count 10.4 fL 7.4 - 10.4 [facility] Neutrophils/100 leukocytes in Blood by Automated count 67.0 % 37. 0 - 80.0 [facility] Lymphocytes/100 leukocytes in Blood by Manual count 16.5 % 25.0 - 40.0 L [facility] Monocytes/100 leukocytes in Blood by Automated count 11.6 % 3.0 - 8.0 H [facility] Eosinophils/100 leukocytes in Blood by Automated count 3.3 % 0.0 - 7.0 [facility] Basophils/100 leukocytes in Blood by Automated count 0.8 % 0.0 - 2.0 [facility] %IG 0.8 % 0.0 - 0.0 [facility] %NR[facility] 0.0 % 0.0 - 0.0 [facility] al Neutrophils [#/volume] in Blood by Automated count 3.24 10^3/uL 2.00 - 6.90 [facility] Lymphocytes [#/volume] in Blood by Automated count 0.80 10^3/uL 0.60 - 3.40 [facility] Monocytes [#/volume] in Blood by Automated count 0.56 10^3/uL 0.00 - 0.90 [facility] Eosinophils [#/volume] in Blood by Automated count 0.16 10^3/uL 0.00 - 0.70 [facility] Basophils [#/volume] in Blood by Automated count 0.04 10^3/uL 0.00 - 0.20 [facility] #IG 0.04 10^3/uL 0.00 - 0.10 [facility] H ospital #NRBC 0.00 10^3/uL 0.00 - 0.00 [facility] ospital MANUAL DIFF NOT INDICATED [facility] RBC MORPH NOT INDICATED [facility] spital ID Date Data Source [id number] 06/18/2020 06:37:00 AM [facility] Name Value Range Interpretation Code Description Data Ynes rce(s) Supporting Document(s) Levetiracetam [Mass/volume] in Serum or Plasma 29.1 ug/mL 10.0-40.0 [facility] This test was developed and its performa nce characteristicsdetermined by [facility]. It has not been cleared or approvedby the Food and Drug Administration. ID Date Data Source [id number] 06/13/2020 08:18:00 AM [facility] Name Value Range Interpretation Code Description Data Ynes rce(s) Supporting Document(s) Urate [Mass/volume] in Serum or Plasma 5.5 MG/DL 2.5 - 8.5 [facility] ID Date Data Source [id number] 06/13/2020 08:18:00 AM [facility] Name Value Range Interpretation Code Description Data Ynes rce(s) Supporting Document(s) Magnesium [Mass/volume] in Serum or Plasma 2.2 MG/DL 1.7 - 2.2 [facility] ID Date Data Source [id number] 06/13/2020 08:18:00 AM [facility] Name Value Range Interpretation Code Description Data Ynes rce(s) Supporting Document(s) COMPREHENSIVE METABOLIC PANEL [facility] COMPREHENSIVE METABOLIC PANEL Sodium [Moles/volume] in Serum or Plasma 144 mEq/L 134 - 153 [facility] Potassium [Moles/volume] in Serum or Plasma 4.4 mEq/L 3.6 - 5.0 [facility] Chloride [Moles/volume] in Serum or Plasma 107 mEq/L 98 - 107 [facility] Carbon dioxide, total [Moles/volume] in Serum or Plasma 30 MEQ/L 22 - 30 [facility] Glucose [Mass/volume] in Serum or Plasma 96 MG/DL 65 - 110 [facility] BUN 15 MG/DL 7 - 21 [facility] Creatinine [Mass/volume] in Serum or Plasma 1.3 MG/DL 0.7 - 1.5 [facility] BUN/CREAT 12 8 - 27 [facility] Protein [Mass/volume] in Serum or Plasma 5.8 G/DL 6.3 - 8.2 L [facility] Albumin [Mass/volume] in Serum or Plasma 4.4 G/DL 3.9 - 5.0 [facility] Globulin [Mass/volume] in Serum by calculation 1.4 GM/DL 2.4 - 3.2 L [facility] A/G RATIO 3.1 0.8 - 2.0 H [facility] Calcium [Mass/volume] in Serum or Plasma 9.2 MG/DL 8.4 - 10.2 [facility] Bilirubin.total [Mass/volume] in Serum or Plasma <0.7 MG/DL 0.2 - 1.3 [facility] Alkaline phosphatase [Enzymatic activity/volume] in Serum or Plasma 165 U/L 38 - 126 H [facility] Aspartate aminotransferase [Enzymatic activity/volume] in Serum or Plasma 19 U/L 5 - 40 [facility] Alanine aminotransferase [Enzymatic activity/volume] in Seru m or Plasma 14 U/L 7 - 56 [facility] Anion gap 3 in Serum or Plasma 7.0 mmol/L 8.0 - 16.0 L [facility] AGE 79 yrs [facility] al NON-AA GFR 57 mL/min [facility] AFR AMER GFR >60 mL/min [facility] Ho spital Male GFR In terprentation 20-49 [...] >32 mL/min Normal ID Date Data Source [id number] 06/13/2020 07:58:00 AM EST [facility] Name Value Range Interpretation Code Description Data Ynes rce(s) Supporting Document(s) CBC NO DIFF [facility] ital COMPLETE BLOOD COUNT Leukocytes [#/volume] in Blood by Automated count 4.4 10^3/uL 4.2 - 1 1.0 [facility] Erythrocytes [#/volume] in Blood by Automated count 3.74 10^6/uL 4. 50 - 6.30 L [facility] Hemoglobin [Mass/volume] in Blood 10.0 g/dL 14.0 - 16.0 L [facility] Hematocrit [Volume Fraction] of Blood by Automated count 31.9 % 4 1.0 - 51.0 L [facility] Erythrocyte mean corpuscular volume [Entitic volume] by Auto mated count 85.3 fL 80.0 - 94.0 [facility] Erythrocyte mean corpuscular hemoglobin [Entitic mass] by Automated count 26.7 pg 27.0 - 34.0 L [facility] Erythrocyte mean corpuscular hemoglobin concentration [Mass/volume] by Automated count 31.3 g/dL 31.0 - 36.0 [facility] Erythrocyte distribution width [Ratio] by Automated count 16.9 % 11.5 - 14.8 H [facility] Platelets [#/volume] in Blood by Automated count 239 10^3/uL 150 - 45 0 [facility] Platelet mean volume [Entitic volume] in Blood by Automated count 10.5 fL 7.4 - 10.4 H [facility] ID Date Data Source [id number] 04/12/2020 02:10:00 PM EDT [facility] [address] [place] [address] PHONE: [phone] FAX: [phone] Name .................. : USHA Armenta Acct Number.................. : [id number] ROOM. ................. : Number ................... : [id number] Stay type ............. : O/P Discharge Date......... ... : 04/11/20 Admit Date ....... .. : 04/11/20 Admit Phys .................... : OLIVEIRA HARD Date of ....... : 1940 Family Phys ................... : EPIYOSEFDAVONTE Phone .................. : [phone] Age ................................ : 79 Film# .................. .:[id number] Sex ................................. : M Unsigned transcriptions are preliminary reports and do not represent a medical or legal document CT HEAD W/O CONTRAST [id number] COMPLETE:04/11/20 10:59 [id number] (REASON FOR PROCEDURE SEVERE HEADACHE CT HEAD [...] By TARYN SALDIVAR MD , 04/12/20 14:10, [facility] Transcribe Initials: SSR, Transcribe Date: 04/11/20 13:31, Dictation Date: Page 1 of 2 [facility] [address] [place] [address] PHONE: [phone] FAX: [phone] Name .................. : USHA Armenta Acct Number.................. : [id number] ROOM. ................. : MR Number ................... : [id number] Stay type ............. : O/P Discharge Date......... ... : 04/11/20 Admit Date ......... : 04/11/20 Admit Phys .................... : OLIVEIRA HARD Date of ....... : 1940 Family Phys ................... : DINO Phone .................. : [phone] Age ................................ : 79 Film# .................. .:[id number] Sex ..................... ............ : M Unsigned transcriptions are preliminary reports and do not represent a medical or legal document CT HEAD W/O CONTRAST [id number] COMPLETE:04/11/20 10:59 30483 (REASON FOR PROCEDURE SEVERE HEADACHE Copy for: 710 MED REC Page 2 of 2 Name Value Range Interpretation Code Description Data Ynes rce(s) Supporting Document(s) ID Date Data Source [id number] 04/04/2020 08:50:00 AM EDT [facility] Name Value Range Interpretation Code Description Data Ynes rce(s) Supporting Document(s) Ferritin [Mass/volume] in Serum or Plasma 26.5 ng/mL 5.0 - 244 [facility] ID Date Data Source [id number] 04/04/2020 08:50:00 AM EDT [facility] Name Value Range Interpretation Code Description Data Ynes rce(s) Supporting Document(s) Thyroxine (T4) free index in Serum or Plasma by calculation 0.93 NG/DL 0.93 - 1.70 [facility] ID Date Data Source [id number] 04/04/2020 08:50:00 AM T [facility] Name Value Range Interpretation Code Description Data Ynes rce(s) Supporting Document(s) Thyrotropin [Units/volume] in Serum or Plasma by Detec tion limit <= 0.05 mIU/L 6.17 uIU/mL 0.47 - 5.01 H [facility] ID Date Data Source [id number] 04/04/2020 08:33:00 AM EDT [facility] Name Value Range Interpretation Code Description Data Ynes rce(s) Supporting Document(s) Iron [Mass/volume] in Serum or Plasma 53 UG/DL 42 - 135 [facility] Iron binding capacity.unsaturated [Mass/volume] in Serum or Plasma 255 UG/DL 112 - 347 [facility] Iron binding capacity [Mass/volume] in Serum or Plasma 308 ug/dL 250 - 450 [facility] Iron saturation [Mass Fraction] in Serum or Plasma 17 % [facility] ID Date Data Source [id number] 04/04/2020 08:33:00 AM EDT [facility] Name Value Range Interpretation Code Description Data Ynes rce(s) Supporting Document(s) Magnesium [Mass/volume] in Serum or Plasma 2.3 MG/DL 1.7 - 2.2 H [facility] ID Date Data Source [id number] 04/04/2020 08:33:00 AM EDT [facility] Name Value Range Interpretation Code Description Data Ynes rce(s) Supporting Document(s) CVE PANEL [facility] al LIPID PANEL Cholesterol [Mass/volume] in Serum or Plasma 152 MG/DL 131 - 200 [facility] Deprecated Triglyceride [Mass/volume] in Serum or Plasma 92 MG/DL 3 5 - 160 [facility] HDL 64 MG/DL 29 - 86 [facility] al Cholesterol in LDL [Mass/volume] in Serum or Plasma by Direc t assay 74 mg/dL 65 - 175 [facility] Cholesterol.total/Cholesterol in HDL [Mass Ratio] in Serum o r Plasma 2.4 3.4 - 4.9 L [facility] LDL/HDL 1.16 1.00 - 3.55 [facility] ital CVE RISK CHOL/HDL LDL/HDLMEN: 1/2 AVERAGE 3.43 1.00 AVERAGE 4.97 3.55 2X AVERAGE 9.55 6.25 3X AVERAGE 23.99 7.99WOMEN: 1/2 AVERAGE 3.27 1.47 AVERAGE 4.44 3.22 2X AVERAGE 7.05 5.03 3X AVERAGE 11.04 6.14 ID Date Data Source [id number] 04/04/2020 08:33:00 AM EDT [facility] Name Value Range Interpretation Code Description Data Ynes rce(s) Supporting Document(s) Potassium [Moles/volume] in Serum or Plasma 4.7 mEq/L 3.6 - 5.0 [facility] ID Date Data Source [id number] 04/04/2020 08:33:00 AM EDT [facility] Name Value Range Interpretation Code Description Data Ynes rce(s) Supporting Document(s) COMPREHENSIVE METABOLIC PANEL [facility] COMPREHENSIVE METABOLIC PANEL Sodium [Moles/volume] in Serum or Plasma 139 mEq/L 134 - 153 [facility] Potassium [Moles/volume] in Serum or Plasma 4.7 mEq/L 3.6 - 5.0 [facility] Chloride [Moles/volume] in Serum or Plasma 101 mEq/L 98 - 107 [facility] Carbon dioxide, total [Moles/volume] in Serum or Plasma 28 MEQ/L 22 - 30 [facility] Glucose [Mass/volume] in Serum or Plasma 88 MG/DL 65 - 110 [facility] BUN 10 MG/DL 7 - 21 [facility] al Creatinine [Mass/volume] in Serum or Plasma 1.0 MG/DL 0.7 - 1.5 [facility] BUN/CREAT 10 8 - 27 [facility] Protein [Mass/volume] in Serum or Plasma 5.7 G/DL 6.3 - 8.2 L [facility] Albumin [Mass/volume] in Serum or Plasma 3.7 G/DL 3.9 - 5.0 L [facility] Globulin [Mass/volume] in Serum by calculation 2.0 GM/DL 2.4 - 3.2 L [facility] A/G RATIO 1.9 0.8 - 2.0 [facility] Calcium [Mass/volume] in Serum or Plasma 9.1 MG/DL 8.4 - 10.2 [facility] Bilirubin.total [Mass/volume] in Serum or Plasma <0.7 MG/DL 0.2 - 1.3 [facility] Alkaline phosphatase [Enzymatic activity/volume] in Serum or Plasma 192 U/L 38 - 126 H [facility] Aspartate aminotransferase [Enzymatic activity/volume] in Serum or Plasma 20 U/L 5 - 40 [facility] Alanine aminotransferase [Enzymatic activity/volume] in Seru m or Plasma 13 U/L 7 - 56 [facility] Anion gap 3 in Serum or Plasma 10.0 mmol/L 8.0 - 16.0 [facility] AGE 79 yrs [facility] al NON-AA GFR >60 mL/min [facility] ital AFR AMER GFR >60 mL/min [facility] Ho spital Male GFR In terprentation 20-49 [...] >32 mL/min Normal ID Date Data Source [id number] 04/04/2020 08:14:00 AM EDT [facility] Name Value Range Interpretation Code Description Data Ynes rce(s) Supporting Document(s) CBC NO DIFF [facility] ital COMPLETE BLOOD COUNT Leukocytes [#/volume] in Blood by Automated count 5.3 10^3/uL 4.2 - 1 1.0 [facility] Erythrocytes [#/volume] in Blood by Automated count 3.88 10^6/uL 4. 50 - 6.30 L [facility] Hemoglobin [Mass/volume] in Blood 10.4 g/dL 14.0 - 16.0 L [facility] Hematocrit [Volume Fraction] of Blood by Automated count 33.1 % 4 1.0 - 51.0 L [facility] Erythrocyte mean corpuscular volume [Entitic volume] by Auto mated count 85.3 fL 80.0 - 94.0 [facility] Erythrocyte mean corpuscular hemoglobin [Entitic mass] by Automated count 26.8 pg 27.0 - 34.0 L [facility] Erythrocyte mean corpuscular hemoglobin concentration [Mass/volume] by Automated count 31.4 g/dL 31.0 - 36.0 [facility] Erythrocyte distribution width [Ratio] by Automated count 14.6 % 11.5 - 14.8 [facility] Platelets [#/volume] in Blood by Automated count 206 10^3/uL 150 - 45 0 [facility] Platelet mean volume [Entitic volume] in Blood by Automated count 10.6 fL 7.4 - 10.4 H [facility] ID Date Data Source [id number] 03/07/2020 12:33:00 PM EDT [facility] 1 OrderSheet [facility] Emergency Department [address] [place] [address] Phone #: ext- [phone] 03/07/2020 12:30 Patient: [...] 12:54 03/07/2020 13:04 Lex,needle from port) Helene Fountain R.N. PA;[Electronically signed by Essie Burnett R.N. (13:47 03/07/2020)][Electronically signed by Helene Harmon (22:34 03/07/2020)][Electronically locked by Essie Burnett R.N. (13:47 03/07/2020)] Name Value Range Interpretation Code Description Data Ynes rce(s) Supporting Document(s) ID Date Data Source [id number] 03/07/2020 12:33:00 PM EDT [facility] 1 Medication Reconciliation Report [facility] Emergency Department [address] [place] [address] Phone #: ext- [phone] 03/07/2020 12:30 Patient: [...] rce(s) Supporting Document(s) ID Date Data Source [id number] 03/07/2020 12:33:00 PM EDT [facility] 1 Medication Administration Record [facility] Emergency Department [address] [place] [address] Phone #: ext- [phone] 03/07/2020 12:30 Patient: LIN MCRAE Sex: M : 1940 Age: 79yWeight: 82.9 kgHeight/Length: 67 inBMI: 28.7ALLERGIES: None Date/Time Medication Administered Medication OrderedGiven HEPARIN FLUSH [IVP] - (Heparin 300Unit/3ml flush for12:56 03/07/2020 Dose: 3 mL IVP port)Essie Burnett R.N. Site: #1 right chest Name Value Range Interpretation Code Description Data Ynes rce(s) Supporting Document(s) ID Date Data Source [id number] 03/07/2020 12:33:00 PM EDT [facility] 1 General Instructions [facility] Emergency Department [address] [place] [address] Phone #: ext- [phone] 03/07/2020 12:30 Patient: LIN MCRAE Sex: Geovany : 1940 Age: 79yHuber needle and tubing [...] patient.Follow-up with: Craig Lewis MD, , , [address] [place] [address] Follow up as scheduled. Reason for referral: evaluation and treatment. Summary of care provided topatient via paper.(Electronically signed by DALLAS Jackson 03/07/2020 22:34) 2 General Instructions [facility] Emergency Department [address] [place] [address] Phone #: ext- [phone] 03/07/2020 12:30 Patient: LIN MCRAE Sex: M : 1940 Age: 79y Name Value Range Interpretation Code Description Data Ynes rce(s) Supporting Document(s) ID Date Data Source [id number] 03/07/2020 12:33:00 PM EDT [facility] 1 Clinical Report - Nurses [facility] Emergency Department [address] [place] [address] Phone #: ext- [phone] 03/07/2020 12:30 Patient: [...] RN.ADDITIONAL SURGERIES: 2 Clinical Report - Nurses [facility] Emergency Department [address] [place] [address] Phone #: ext- [phone] 03/07/2020 12:30 Patient: [...] during last [facility]RESPIRATORY: Respirations not labored. Chest nontender. Breath sounds within normal limits.CVS: Pulses within normal limits.GI / : Abdomen soft and nontender.SKIN: Skin is warm and dry. --12:52 03/07/20 Essie Burnett R.N. 3 Clinical Report - Nurses [facility] Emergency Department [address] [place] [address] Phone #: ext- [phone] 03/07/2020 12:30 -- Patient: LIN MCRAE Sex: [...] Patient verbalized understanding. Written instructions provided in Tajik. The patient was discharged by the physician regional administrative assistant. He was accompanied by family and discharged (apt). He left ambulatory and via private vehicle. Family member driving. --13:36 03/07/20 Essie Burnett R.N. 13:38 03/07/20. BP: 109/63. HR: 84. RR: 22. O2 saturation: 95%. Temp: 98.6 F. Pain lev el now 04/11. --13:39 03/07/20 Melvin Garcia, ER Guide Excursion Change to Details. --13:39 03/07/20 Melvin Garcia, ER Guide Excursion 13:19 03/07/20. BP: 109/63. MAP: 78. HR: 84. RR: 22. O2 saturation: 95%. Temp: 98.6 F. Pain level now: 04/11. --13:40 03/07/20 Melvin Garcia, ER Guide Excursion.Locked/Released at 03/07/2020 13:47 by Essie Burnett R.N. Name Value Range Interpretation Code Description Data Ynes rce(s) Supporting Document(s) ID Date Data Source [id number] 03/07/2020 12:33:00 PM EDT [facility] 1 Clinical Report - Physicians/Mid Levels [facility] Emergency Department [address] [place] [address] Phone #: ext- [phone] 03/07/2020 12:30 Patient: [...] daily. 2 Clinical Report - Physicians/Mid Levels [facility] Emergency Department [address] [place] [address] Phone #: ext- [phone] 03/07/2020 12:30 Patient: LIN MCRAE Sex: M [...] still noted in port. Will order a [id number]/3ml flush and have the nurse remove it, then will dc home. Nurse removed needle. pt tolerated procedure well. Will dc home. Disposition: Discharged home.CLINICAL IMPRESSION Melchor needle and tubing left in port from previous hospital admission. Needle removed today.INSTRUCTIONS (Follow up with your regular provider for continued monitoring.). 3 Clinical Report - Physicians/Mid Levels [facility] Emergency Department [address] [place] [address] Phone #: ext- [phone] 03/07/2020 12:30 Patient: LIN MCRAE Sex: M [...] Follow-up with: Craig Lewis MD, , , [address] [place] [address], [id number] Follow up as scheduled. Reason for referral: evaluation and treatment. Summary of care provided to patient via paper.(Electronically signed by DALLAS Jackson 03/07/2020 22:34) Name Value Range Interpretation Code Description Data Ynes rce(s) Supporting Document(s) ID Date Data Source [id number] 03/04/2020 09:28:00 [place] [address] PHONE: [phone] FAX: [phone] Name .................. : USHA Armenta Acct Number.................. : [id number] ROOM. ................. : CCU3 MR Number ................... : [id number] Stay type ............. : I/P Discharge Date......... ... : Admit Date ......... : 03/01/20 Admit Phys .................... : STERLING OCHOA Date of ....... : 1940 Family Phys ................... : [employer] Phone .................. : [phone] Age ................................ : 79 Film# .................. .:[id number] Sex ................................. : M Unsigned transcriptions are preliminary reports and do not represent a medical or legal document CT HEAD W/O CONTRAST 20571 COMPLETE:03/01/20 17:18 KBO 00205 Lorena son(s): multiple falls CT OF THE [...] rce(s) Supporting Document(s) ID Date Data Source [id number] 03/04/2020 08:38:00 [place] [address] PHONE: [phone] FAX: [phone] Name .................. : USHA CEBALLOS Geovany Acct Number.................. : [id number] ROOM. ................. : CCU3 MR Number ................... : [id number] Stay type ............. : I/P Discharge Date......... ... : Admit Date ......... : 03/01/20 Admit Phys .................... : STERLING OCHOA Date of ....... : 1940 Family Phys ................... : DINO Phone .................. : [phone] Age ................................ : 79 Film# .................. .:[id number] Sex ................................. : M Unsigned transcriptions are preliminary reports and do not represent a medical or legal document CHEST 2 VIEWS 31979 COMPLETE:03/01/20 17:18 KBO 47973 Reason(s): weakness, falls CHEST X-RAY: PA AND LATERAL VIEWS HISTORY: Weakness and falls. FINDINGS: A right jugular Kiga-y-Clucebwj with its tip in the right atrium. Lung patricia are clear. The h eart and mediastinum are normal. IMPRESSION: No acute disease. Electronically Reviewed and Signed By Chase Sumner MD , 03/04/20 08:38, [facility] Transcribe Initials: DZ , Transcribe Date: 03/02/20 00:37, Dictation Date: Copy for: [facility] REC DISCHARGED Page 1 of 1 Name Value Range Interpretation Code Description Data Ynes rce(s) Supporting Document(s) ID Date Data Source [id number] 03/04/2020 08:37:00 [place] [address] PHONE: [phone] FAX: [phone] Name .................. : USHA Armenta Acct Number.................. : [id number] ROOM. ................. : CCU3 Number ................... : [id number] Stay type ............. : I/P Discharge Date......... ... : Admit Date ......... : 03/01/20 Admit Phys .................... : STERLING OCHOA Date of ....... : 1940 Family Phys ................... : [employer]DAVONTE Phone .................. : [phone] Age ................................ : 79 Film# .................. .:[id number] Sex ................................. : M Unsigned transcriptions are preliminary reports and do not represent a medical or legal [place] [id number] COMPLETE:03/01/20 17:18 KBO 24711 Reason(s): Elbow Injury LEFT ELBOW X-RAY: HISTORY: Injury. FINDINGS: There is suggestion of a laceration posterior to the distal humerus. No fractures are seen. Bone mineralization is intact. The articular surfaces are unremarkable. IMPRESSION: Laceration in the soft tissues posterior to the distal humerus. Electronically Reviewed and Signed By Chase Sumner MD , 03/04/20 08:37, [facility] Transcribe Initials: DZ , Transcribe Date: 03/02/20 00:36, Dictation Date: Copy for: [facility] REC DISCHARGED Page 1 of 1 Name Value Range Interpretation Code Description Data Ynes rce(s) Supporting Document(s) ID Date Data Source [id number] 03/04/2020 08:06:00 AM EDT [facility] [address] [place] [address] RESPIRATORY CARE REPORT ==== ---------NAME------- NUMBER SEX AGE ADMIT DISC. XRAY# F/C VONDA CEBALLOS Geovany [id number] M [id number] 03/01/20 03/02/20298542 M8 I/P DATE OF : 1940 M/R# [id number] PH#: [phone] [id number] LOCATION: EMERGENCY DEPT [facility] [id number] COMPL ETE:03/02/20 08:39 [facility] [id number] PHYSICIAN: STERLING PEREZ [facility] Name Value Range Interpretation Code Description Data Ynes rce(s) Supporting Document(s) ID Date Data Source [id number] 03/02/2020 08:39:00 AM EDT [facility] Name Value Range Interpretation Code Description Data Ynes rce(s) Supporting Document(s) [facility] Cholesterol [Mass/volume] in Serum or Plasma 112 MG/DL 131 - 200 L [facility] Deprecated Triglyceride [Mass/volume] in Serum or Plasma 63 MG/DL 3 5 - 160 [facility] HDL 50 MG/DL 29 - 86 [facility] Cholesterol in LDL [Mass/volume] in Serum or Plasma by Direc t assay 50 mg/dL 65 - 175 L [facility] Cholesterol.total/Cholesterol in HDL [Mass Ratio] in Serum o r Plasma 2.2 3.4 - 4.9 L [facility] LDL/HDL 1.00 1.00 - 3.55 [facility] ital CVE RISK CHOL/HDL LDL/HDLMEN: 1/2 AVERAGE 3.43 1.00 AVERAGE 4.97 3.55 2X AVERAGE 9.55 6.25 3X AVERAGE 23.99 7.99WOMEN: 1/2 AVERAGE 3.27 1.47 AVERAGE 4.44 3.22 2X AVERAGE 7.05 5.03 3X AVERAGE 11.04 6.14 ID Date Data Source [id number] 03/02/2020 08:39:00 AM EDT [facility] Name Value Range Interpretation Code Description Data Ynes rce(s) Supporting Document(s) BASIC METABOLIC PANEL [facility] BASIC METABOLIC PANEL Sodium [Moles/volume] in Serum or Plasma 142 mEq/L 134 - 153 [facility] Potassium [Moles/volume] in Serum or Plasma 4.1 mEq/L 3.6 - 5.0 [facility] Chloride [Moles/volume] in Serum or Plasma 105 mEq/L 98 - 107 [facility] Carbon dioxide, total [Moles/volume] in Serum or Plasma 26 MEQ/L 22 - 30 [facility] Glucose [Mass/volume] in Serum or Plasma 84 MG/DL 65 - 110 [facility] BUN 14 MG/DL 7 - 21 [facility] al Creatinine [Mass/volume] in Serum or Plasma 1.7 MG/DL 0.7 - 1.5 H [facility] BUN/CREAT 8 8 - 27 [facility] Calcium [Mass/volume] in Serum or Plasma 8.6 MG/DL 8.4 - 10.2 [facility] Anion gap 3 in Serum or Plasma 11.0 mmol/L 8.0 - 16.0 [facility] AGE 79 yrs [facility] al AFR AMER GFR 50 mL/min [facility] NON-AA GFR 42 mL/min [facility] Male GFR Inter prentation 20-49 yrs [...] >32 mL/min Normal ID Date Data Source [id number] 03/02/2020 08:33:00 AM EDT [facility] Name Value Range Interpretation Code Description Data Ynes rce(s) Supporting Document(s) CBC W/AUTOMATED DIFF [facility] COMPLETE BLOOD COUNT Leukocytes [#/volume] in Blood by Automated count 5.6 10^3/uL 4.2 - 1 1.0 [facility] Erythrocytes [#/volume] in Blood by Automated count 3.97 10^6/uL 4. 50 - 6.30 L [facility] Hemoglobin [Mass/volume] in Blood 10.8 g/dL 14.0 - 16.0 L [facility] Hematocrit [Volume Fraction] of Blood by Automated count 34.5 % 4 1.0 - 51.0 L [facility] Erythrocyte mean corpuscular volume [Entitic volume] by Auto mated count 86.9 fL 80.0 - 94.0 [facility] Erythrocyte mean corpuscular hemoglobin [Entitic mass] by Automated count 27.2 pg 27.0 - 34.0 [facility] Erythrocyte mean corpuscular hemoglobin concentration [Mass/volume] by Automated count 31.3 g/dL 31.0 - 36.0 [facility] Erythrocyte distribution width [Ratio] by Automated count 14.2 % 11.5 - 14.8 [facility] Platelets [#/volume] in Blood by Automated count 206 10^3/uL 150 - 45 0 [facility] Platelet mean volume [Entitic volume] in Blood by Automated count 11.2 fL 7.4 - 10.4 H [facility] Neutrophils/100 leukocytes in Blood by Automated count 46.6 % 37. 0 - 80.0 [facility] Lymphocytes/100 leukocytes in Blood by Manual count 19.6 % 25.0 - 40.0 L [facility] Monocytes/100 leukocytes in Blood by Automated count 9.8 % 3.0 - 8.0 H [facility] Eosinophils/100 leukocytes in Blood by Automated count 22.7 % 0.0 - 7.0 H [facility] Basophils/100 leukocytes in Blood by Automated count 0.9 % 0.0 - 2.0 [facility] %IG 0.4 % 0.0 - 0.0 H [facility] al %NRBC 0.0 % 0.0 - 0.0 [facility] al Neutrophils [#/volume] in Blood by Automated count 2.61 10^3/uL 2.00 - 6.90 [facility] Lymphocytes [#/volume] in Blood by Automated count 1.10 10^3/uL 0.60 - 3.40 [facility] Monocytes [#/volume] in Blood by Automated count 0.55 10^3/uL 0.00 - 0.90 [facility] Eosinophils [#/volume] in Blood by Automated count 1.27 10^3/uL 0.00 - 0.70 H [facility] Basophils [#/volume] in Blood by Automated count 0.05 10^3/uL 0.00 - 0.20 [facility] #IG 0.02 10^3/uL 0.00 - 0.10 [facility] #NRBC 0.00 10^3/uL 0.00 - 0.00 [facility] MANUAL DIFF NOT INDICATED [facility] RBC MORPH NOT INDICATED [facility] ID Date Data Source [id number] 03/01/2020 03:42:00 PM EDT [facility] 1 OrderSheet [facility] Emergency Department [address] [place] [address] Phone #: ext- [phone] 03/01/2020 15:41 Patient: LIN MCRAE Sex: M [...] STAT 16:17 03/01/2020 16:26 Beni 2 OrderSheet [facility] Emergency Department [address] [place] [address] Phone #: ext- [phone] 03/01/2020 15:41 Patient: LIN MCRAE Sex: M [...] Elbow InjuryMEDICATION/IV/DRIP/FLUID ORDERSOrder Description Priority Entered Acknowledged [id number] IV : 100 16:19 03/01/2020 17:52 TerrymL/hr Justin Perez RN, M.D.;Tdap IM 0.5 mL 16:19 03/01/2020 16:53 Beni Turrin, Justin Vargas RN M.D.;GENERAL ORDERSOrder Description Priority Entered Acknowledged InitialedBlood Pressure 16:17 03/01/2020 16:25 Justin Landeros RN, M.D.;Dry Cleaning Machine Operator 16:17 03/01/2020 16:25 Beni(continuous) Justin Perez RN, M.D.;EKG 16:17 03/01/2020 16:25 Justin Valle RN, M.D.;NPO 16:17 03/01/2020 16:25 Justin Valle RN 3 OrderSheet [facility] Emergency Department [address] [place] [address] Phone #: ext- [phone] 03/01/2020 15:41 Patient: [...] BeniHospitalist Justin Perez RN, M.D.;[Electronically signed by iLn Arriaga R.N. (21:30 03/01/2020)][Electronically signed by Justin Perez M.D. (21:31 03/01/2020)][Electronically locked by Lin Arriaga R.N. (21:30 03/01/2020)] Name Value Range Interpretation Code Description Data Ynes rce(s) Supporting Document(s) ID Date Data Source [id number] 03/01/2020 03:42:00 PM EDT [facility] 1 Medication Reconciliation Report [facility] Emergency Department [address] [place] [address] Phone #: ext- [phone] 03/01/2020 15:41 Patient: [...] rce(s) Supporting Document(s) ID Date Data Source [id number] 03/01/2020 03:42:00 PM EDT [facility] 1 Medication Administration Record [facility] Emergency Department [address] [place], [place] [id number] Phone #: ext- [phone] 03/01/2020 15:41 Patient: LIN MCRAE Sex: M : 1940 Age: 79yWeight: 74.8 kgHeight/Length: 65 inBMI: 27.5ALLERGIES: None Date/Time Medication Administered Medication OrderedStart D5NS IV D5NS IV : 100 mL/hr16:52 03/01/2020 Dose: IV FluidsYosefry RAYNE Vargas Rate: 100 mL/hr over 5 hour(s)---- Dispensed: 1000 mL bagStop Site: #1 Stwbiwt56:10 03/01/2020Lin Arriaga R.N.Given TDAP [IM] Tdap IM 0.5 mL16:53 03/01/2020 Dose: 0.5 mL Leslie Vargas RN Name Value Range Interpretation Code Description Data Ynes rce(s) Supporting Document(s) ID Date Data Source [id number] 03/01/2020 03:42:00 PM EDT [facility] 1 General Instructions [facility] Emergency Department [address] [place] [address] Phone #: ext- [phone] 03/01/2020 15:41 Patient: LIN MCRAE Sex: M : 1940 Age: 79yMild chronic renal insufficiency.Fall on the same level by tripping (Frequent Falls).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 03/01/2020 21:31) Name Value Range Interpretation Code Description Data Ynes rce(s) Supporting Document(s) ID Date Data Source [id number] 03/01/2020 03:42:00 PM EDT [facility] 1 Clinical Report - Nurses [facility] Emergency Department [address] [place] [address] Phone #: ext- [phone] 03/01/2020 15:41 Patient: [...] of consciousness. No alteration in mental status.Treatment INDUSTRIAL CHEMIST:None.SEPSIS SCREEN: SIRS Screen negative. Sepsis Screen negative. No suspected or confirmed signs ofinfection present. --15:59 03/01/20 Arianna Jimenez RN15:46 03/01/20. BP: 137/74. MAP: 95. HR: 72. RR: 18. O2 saturation: 100%. Temp: 98.7 F. Pain levelnow: 0/10. --15:59 03/01/20 Arianna Jimenez, RAYNE.Weight: 74.8 kg stated. Height/Length: 65 inches Per Patient. BMI: 27.5. --15:54 03/01/20 Arianna Jimenez RN.MedicationsSingulair Oral 10 mg, daily. --16:11 03/01/20 Arianna Jimenez, RAYNE Omeprazole Oral 40 mg, daily. --16:12 03/01/20 Arianna Jimenez RN Lasix Oral 40 mg, daily. --16:12 03/01/20 Arianna Jimenez, RAYNE levETIRAcetam Oral 500 mg, 2x a day. [...] RN.PROBLEMS:Myocardial Infarction.CVA - Cerebrovascular Accident.Leukemia.Cancer. --15:54 03/01/20 Arianna Jimenez RN 2 Clinical Report - Nurses [facility] Emergency Department [address] [place] [address] Phone #: [phone] ext- [phone] 03/01/2020 15:41 Patient: LIN MCRAE Sex: M : 1940 Age: 79y Blind. --16:17 03/01/20 Arianna Jimenez RN. ADDITIONAL SURGERIES: Appendectomy. Testis excision. --15:54 03/01/20 Arianna Jimenez RN. History SOCIAL HX: Former smoker. No alcohol [...] Jimenez RN 3 Clinical Report - Nurses [facility] Emergency Department [address] [place] [address] Phone #: ext- [phone] 03/01/2020 15:41 Patient: [...] 0.5 mL given(Lot#: [id number], expiration date: 11/27/2021, Skein Bander: [place]). Given in the right deltoid. Allergies verified [...] labeled in the presence of the patient (6995). Patienttransported to radiology and CT by stretcher with calibration technician. (6659). --16:55 03/01/20 Beni Vargas RN16:52 03/01/2020 Started [...] physician. Patientreturned from CT by stretcher with calibration technician. (5380). --17:53 03/01/20 Beni Vargas RNLeft elbow: applied sterile dressing consisting of telfa pad, following the application of antibiotic ointment(bacitracin). (wrapped with cobain). --18:01 03/01/20 Arianna Jimenez RN( 1820 pt requesting coffee admission orders are for regular diet coffee offered). --18:24 03/01/20 RAYNE Bucio( 1830 tray arrived and offered to [...] Vargas RN 4 Clinical Report - Nurses [facility] Emergency Department [address] [place] [address] Phone #: ext- [phone] 03/01/2020 15:41 Patient: [...] IV flushedthoroughly. --21:29 03/01/20 Lin Arriaga R.N.Intake Rmnxxx41:10 03/01/20. Urine output: 200 mL. --18:23 03/01/20 Beni Vargas RN18:10 03/01/20. Urine output: 200 mL. --18:23 03/01/20 Beni Vargas RN Correction --18:23 03/01/20Beni Vargas RN18:03/01/20. Urine output: 100 mL. --18:22 03/01/20 Beni Vargas RN.DISPOSITION / DISCHARGE 5 Clinical Report - Nurses [facility] Emergency Department [address] [place] [address] Phone #: ext- [phone] 03/01/2020 15:41 [id number] Sex: M : 1940 Age: 79y No learning barriers present. Discharge instructions provided and reviewed with the patient. Reviewed warnings. Reviewed medication(s). Treatments reviewed. Reviewed referrals. Patient verbalized unde rstanding. Written instructions provided in Tajik. Admitted. Report was given to a nurse. [...] rce(s) Supporting Document(s) ID Date Data Source [id number] 03/01/2020 03:42:00 PM EDT [facility] 1 Clinical Report - Physicians/Mid Levels [facility] Emergency Department [address] [place] [address] Phone #: ext- [phone] 03/01/2020 15:41 Patient: [...] 911 for him to be placed in [place] because of fall risk and danger to [...] Medications: 2 Clinical Report - Physicians/Mid Levels [facility] Emergency Department [address] [place] [address] Phone #: ext- [phone] 03/01/2020 15:41 Patient: LIN MCRAE Sex: Geovany : 1940 Age: 79y Gabapentin Oral 100 [...] interpreted 3 Clinical Report - Physicians/Mid Levels [facility] Emergency Department [address] [place] [address] Phone #: ext- [phone] 03/01/2020 15:41 Patient: LIN MCRAE Sex: M [...] PANEL 4 Clinical Report - Physicians/Mid Levels [facility] Emergency Department [address] [place] [address] Phone #: [phone] ext- [phone] 03/01/2020 15:41 Patient: LIN MCRAE Sex: M [...] Male GFR Interprentation 20-49 yrs >60 mL/min Howvff16-91 yrs >56 mL/min Normal 60-69 yrs >49 mL/min Normal 70-79yrs>42 mL/min Normal 80 and above >35 mL/min Normal Female GFRInterpretation 20-39 yrs >60 mL/min Normal 40-49 yrs >58 mL/minNormal 50-59 yrs >51 mL/min Normal 60-69 yrs >45 mL/min Qogxev63-54 yrs >39 mL/min Normal 80 and above [...] VenousThrombosis, Pulmonary Embolus, Tissue heart valves, Acute [place] Atrial Fibrillation, Valvular heart diseaseand recurrent Systemic Embolism. -International Normalized Ratio (INR): 2.5 - 3.5 forMechanical Prosthetic valve.Troponin-T: (NATHANAEL: 03/01/2020 16:40) ( [facility] 03/01/2020 17:24) Final results Test Result Flag Units (Reference) TROPONIN T <0.01 NG/ML (0.00 - 0.10) TROPONIN T0.1 ng/ml Recommended as the clinical threshold value forTroponin T.Magnesium: (NATHANAEL: 03/01/2020 16:40) ( [facility] 03/01/2020 17:27) Final results Test Result Flag Units (Reference) MAGNESIUM 2.4 H MG/DL (1.7 - 2.2)Iron Binding Capacity: (NATHANAEL: 03/01/2020 16:40) ( [facility] 03/01/2020 17:27) Final results Test Result Flag Units (Reference) IRON 22 L UG/DL (42 - 135) UIBC 275 UG/DL (112 - 347) TIBC 297 ug/dL (250 - 450) IRON SAT 7 % 5 Clinical Report - Physicians/Mid Levels [facility] Emergency Department [address] [place] [address] Phone #: ext- [phone] 03/01/2020 15:41 Patient: LIN MCRAE [facility]#: [id number] Sex: M : 1940 Age: 79y Iron, [...] rce(s) Supporting Document(s) ID Date Data Source [id number] 03/01/2020 09:25:00 PM EDT [facility] Name Value Range Interpretation Code Description Data Ynes rce(s) Supporting Document(s) URINALYSIS [facility] vanessa URINALYSIS SOURCE R [facility] al COLOR yellow NORMAL: Yellow [facility] CLARITY clear NORMAL: Clear [facility] Specific gravity of Urine by Test strip 1.005 1.001 - 1.030 [facility] pH 6 5 - 9 [facility] Glucose [Mass/volume] in Urine by Test strip NORM NORMAL: Negat [facility] Bilirubin.total [Presence] in Urine by Test strip NEG NORMAL: Negative [facility] Ketones [Presence] in Urine by Test strip NEG NORMAL: Negative [facility] Protein [Mass/volume] in Urine by Test strip NEG NORMAL: Negat [facility] Nitrite [Presence] in Urine by Test strip NEG NORMAL: Negative [facility] BLOOD NEG NORMAL: Negative [facility] Leukocyte esterase [Presence] in Urine by Test strip NEG GINA L: Negative [facility] Urobilinogen [Mass/volume] in Urine by Test strip NOR less reji n 1.0 mg/dL [facility] MICROSCOPIC Not Indicate [facility] ID Date Data Source [id number] 03/01/2020 06:06:00 PM EDT [facility] Name Value Range Interpretation Code Description Data Ynes rce(s) Supporting Document(s) Ferritin [Mass/volume] in Serum or Plasma 34.2 ng/mL 5.0 - 244 [facility] ID Date Data Source [id number] 03/01/2020 06:06:00 PM EDT [facility] Value Range Interpretation Code Description Data Ynes rce(s) Supporting Document(s) Cobalamin (Vitamin B12) [Mass/volume] in Serum or Plasma 1034 PG /ML 232 - 1245 [facility] ID Date Data Source [id number] 03/01/2020 06:06:00 PM EDT [facility] Name Value Range Interpretation Code Description Data Ynes rce(s) Supporting Document(s) Folate [Mass/volume] in Serum or Plasma 6.5 NG/ML 5.6 - 45.8 [facility] ID Date Data Source [id number] 03/01/2020 06:06:00 PM EDT [facility] Name Value Range Interpretation Code Description Data Ynes rce(s) Supporting Document(s) Thyrotropin [Units/volume] in Serum or Plasma by Detec tion limit <= 0.05 mIU/L 3.35 uIU/mL 0.47 - 5.01 [facility] ID Date Data Source [id number] 03/01/2020 05:27:00 PM EDT [facility] Name Value Range Interpretation Code Description Data Ynes rce(s) Supporting Document(s) Iron [Mass/volume] in Serum or Plasma 22 UG/DL 42 - 135 L [facility] Iron binding capacity.unsaturated [Mass/volume] in Serum or Plasma 275 UG/DL 112 - 347 [facility] Iron binding capacity [Mass/volume] in Serum or Plasma 297 ug/dL 250 - 450 [facility] Iron saturation [Mass Fraction] in Serum or Plasma 7 % [facility] ID Date Data Source [id number] 03/01/2020 05:27:00 PM EDT [facility] Name Value Range Interpretation Code Description Data Ynes rce(s) Supporting Document(s) Magnesium [Mass/volume] in Serum or Plasma 2.4 MG/DL 1.7 - 2.2 H [facility] ID Date Data Source [id number] 03/01/2020 05:27:00 PM EDT [facility] Name Value Range Interpretation Code Description Data Ynes rce(s) Supporting Document(s) COMPREHENSIVE METABOLIC PANEL [facility] COMPREHENSIVE METABOLIC PANEL Sodium [Moles/volume] in Serum or Plasma 137 mEq/L 134 - 153 [facility] Potassium [Moles/volume] in Serum or Plasma 4.2 mEq/L 3.6 - 5.0 [facility] Chloride [Moles/volume] in Serum or Plasma 100 mEq/L 98 - 107 [facility] Carbon dioxide, total [Moles/volume] in Serum or Plasma 26 MEQ/L 22 - 30 [facility] Glucose [Mass/volume] in Serum or Plasma 98 MG/DL 65 - 110 [facility] BUN 18 MG/DL 7 - 21 [facility] Creatinine [Mass/volume] in Serum or Plasma 2.3 MG/DL 0.7 - 1.5 H [facility] BUN/CREAT 8 8 - 27 [facility] al Protein [Mass/volume] in Serum or Plasma 5.7 G/DL 6.3 - 8.2 L [facility] Albumin [Mass/volume] in Serum or Plasma 4.1 G/DL 3.9 - 5.0 [facility] Globulin [Mass/volume] in Serum by calculation 1.6 GM/DL 2.4 - 3.2 L [facility] A/G RATIO 2.6 0.8 - 2.0 H [facility] al Calcium [Mass/volume] in Serum or Plasma 9.0 MG/DL 8.4 - 10.2 [facility] Bilirubin.total [Mass/volume] in Serum or Plasma <0.7 MG/DL 0.2 - 1.3 [facility] Alkaline phosphatase [Enzymatic activity/volume] in Serum or Plasma 172 U/L 38 - 126 H [facility] Aspartate aminotransferase [Enzymatic activity/volume] in Serum or Plasma 21 U/L 5 - 40 [facility] Alanine aminotransferase [Enzymatic activity/volume] in Seru m or Plasma 11 U/L 7 - 56 [facility] Anion gap 3 in Serum or Plasma 11.0 mmol/L 8.0 - 16.0 [facility] AGE 79 yrs [facility] al NON-AA GFR 29 mL/min [facility] AFR AMER GFR 35 mL/min [facility] Male GFR In terprentation 20-49 [...] >32 mL/min Normal ID Date Data Source [id number] 03/01/2020 05:24:00 PM EDT [facility] Name Value Range Interpretation Code Description Data Ynes rce(s) Supporting Document(s) TROPONIN T <0.01 NG/ML 0.00 - 0.10 [facility] ospital TROPONIN T0.1 ng/ml Recommended as the c linical threshold value Mitesh T. ID Date Data Source [id number] 03/01/2020 05:07:00 PM EDT [facility] Name Value Range Interpretation Code Description Data Ynes rce(s) Supporting Document(s) CBC W/AUTOMATED DIFF [facility] COMPLETE BLOOD COUNT Leukocytes [#/volume] in Blood by Automated count 7.2 10^3/uL 4.2 - 1 1.0 [facility] Erythrocytes [#/volume] in Blood by Automated count 3.76 10^6/uL 4. 50 - 6.30 L [facility] Hemoglobin [Mass/volume] in Blood 10.3 g/dL 14.0 - 16.0 L [facility] Hematocrit [Volume Fraction] of Blood by Automated count 32.7 % 4 1.0 - 51.0 L [facility] Erythrocyte mean corpuscular volume [Entitic volume] by Auto mated count 87.0 fL 80.0 - 94.0 [facility] Erythrocyte mean corpuscular hemoglobin [Entitic mass] by Automated count 27.4 pg 27.0 - 34.0 [facility] Erythrocyte mean corpuscular hemoglobin concentration [Mass/volume] by Automated count 31.5 g/dL 31.0 - 36.0 [facility] Erythrocyte distribution width [Ratio] by Automated count 14.3 % 11.5 - 14.8 [facility] Platelets [#/volume] in Blood by Automated count 200 10^3/uL 150 - 45 0 [facility] Platelet mean volume [Entitic volume] in Blood by Automated count 10.8 fL 7.4 - 10.4 H [facility] Neutrophils/100 leukocytes in Blood by Automated count 50.0 % 37. 0 - 80.0 [facility] Lymphocytes/100 leukocytes in Blood by Manual count 20.1 % 25.0 - 40.0 L [facility] Monocytes/100 leukocytes in Blood by Automated count 10.3 % 3.0 - 8.0 H [facility] Eosinophils/100 leukocytes in Blood by Automated count 18.2 % 0.0 - 7.0 H [facility] Basophils/100 leukocytes in Blood by Automated count 0.8 % 0.0 - 2.0 [facility] %IG 0.6 % 0.0 - 0.0 H [facility] %NRBC 0.0 % 0.0 - 0.0 [facility] al Neutrophils [#/volume] in Blood by Automated count 3.58 10^3/uL 2.00 - 6.90 [facility] Lymphocytes [#/volume] in Blood by Automated count 1.44 10^3/uL 0.60 - 3.40 [facility] Monocytes [#/volume] in Blood by Automated count 0.74 10^3/uL 0.00 - 0.90 [facility] Eosinophils [#/volume] in Blood by Automated count 1.30 10^3/uL 0.00 - 0.70 H [facility] Basophils [#/volume] in Blood by Automated count 0.06 10^3/uL 0.00 - 0.20 [facility] #IG 0.04 10^3/uL 0.00 - 0.10 [facility] ospital #NRBC 0.00 10^3/uL 0.00 - 0.00 [facility] ospital MANUAL DIFF NOT INDICATED [facility] RBC MORPH NOT INDICATED [facility] spital ID Date Data Source [id number] 03/01/2020 05:04:00 PM EDT [facility] Name Value Range Interpretation Code Description Data Ynes rce(s) Supporting Document(s) Prothrombin time (PT) 14.0 SECONDS 11.0 - 15.5 [facility] INR in Platelet poor plasma by Coagulation assay 1.07 0.93 - 1. 23 [facility] aPTT in Blood by Coagulation assay 33.2 SECONDS 24.8 - 36.7 [facility] \\BLDo\\INR INTERPRETATION\\BLDx\\ Therapeutic range for Coumadin and related oral anticoagulants. - International Normalized Ratio (INR): 2.0 - 3.0 for Venous Thrombosis, Pulmonary Embolus, Tissue heart valves, Acute [place] Atrial Fibrillation, Valvular heart disease and recurrent Systemic Embolism. - International Normalized Ratio (INR): 2.5 - 3.5 for Mechanical Prosthetic valve. ID Date Data Source UA URINALYSIS 02/13/2020 02:14:12 AM EDT eCW1 ([facility]) Name Value Range Interpretation Code Description Data Ynes rce(s) Supporting Document(s) UA URINALYSIS eCW1 (Pending Sale To [facility]) ID Date Data Source RENAL PROFILE 02/13/2020 02:14:01 AM EDT eCW1 ([facility]) Name Value Range Interpretation Code Description Data Ynes rce(s) Supporting Document(s) 87 GLUCOSE, FASTING eCW1 ([facility]) 42.2 GLOMERULAR FILTRATION RATE eCW 1 ([facility]ending [facility] To [facility]) 1.68 CREATININE FOR GFR eCW1 ([facility]) 21 BLOOD UREA NITROGEN eCW1 ([facility]) 102 CHLORIDE LEVEL eCW1 (Pending [facility] To [facility]) 4.9 POTASSIUM SERUM eCW1 ([facility]) 28 CARBON DIOXIDE LEVEL eCW1 ([facility]) 138 SODIUM LEVEL eCW1 ([facility]) 3.7 PHOSPHORUS LEVEL eCW1 ([facility]) 3.7 ALBUMIN eCW1 ([facility]) 8.5 CALCIUM LEVEL eCW1 (Pending [facility] To [facility]) ID Date Data Source [id number] 02/01/2020 12:00:00 AM EDT [facility] Joan Hernandez Pa-C Patient Name: BABAK MCRAE [facility] 1940[facility] [place] [id number] Date of Exam: 02/01/2020#: Fax: [phone] EXAM: [...] in the vertebral arteries bilaterally.Accredited by the [employer] in Vascular CerebroUltrasound.Lazara Luque, EVELIN/Vijay you for referring LIN MCRAE to our office. Electronically Signed - LAZARA LUQUE MD 02/05/20 9:34 Name Value Range Interpretation Code Description Data Ynes rce(s) Supporting Document(s) ID Date Data Source CBC with Differential 11/24/2019 12:00:00 AM EDT eCW1 ([facility]) Name Value Range Interpretation Code Description Data Ynes rce(s) Supporting Document(s) 3.91 4.30-6.10 RED BLOOD COUNT eCW1 ([facility]) 9.1 4.0-10.0 WHITE BLOOD COUNT eCW1 ([facility]) 36.5 42.0-52.0 HEMATOCRIT eCW1 ([facility]) 11.8 13.5-17.5 HEMOGLOBIN eCW1 ([facility]) 32.3 32.0-36.5 MEAN CORPUSCULAR HGB CONC eCW1 ([facility]) 93.4 80.0-96.0 MEAN CORPUSCULAR VOLUME e CW1 ([facility] To [facility]) 30.2 27.0-33.0 MEAN CORPUSCULAR HEMOGLOB IN eCW1 ([facility] To [facility]) 15.3 11.5-14.5 RED CELL DISTRIBUTION WID TH eCW1 ([facility] To [facility]) 8.5 0.0-5.0 MONO % eCW1 ([facility]) 27.7 24.0-44.0 LYMPH % eCW1 ([facility]) 54.6 36.0-66.0 NEUTROPHILS % eCW1 ([facility]) 122 150-450 PLATELET COUNT, AUTOMATED eCW1 ([facility]) 2.5 1.5-5.0 LYMPH # eCW1 ([facility]) 5.0 1.5-8.5 NEUTROPHILS # eCW1 ([facility]) 0.4 0.0-1.0 BASO % eCW1 ([facility]) 8.3 0.0-3.0 EOS % eCW1 ([facility]) 0.0 0.0-0.2 BASO # eCW1 ([facility]) 0.8 0.0-0.5 EOS # eCW1 ([facility]) 0.8 0.0-0.8 MONO # eCW1 ([facility]) Procedure Social History Code Duration Value Status Description Data Source(s ) Smoking 08/16/2020 12:00:00 AM EST Former Smoker completed Former Smoker eCW1 ([facility]) Smoking 07/12/2020 12:00:00 AM EST Former Smoker completed Former Smoker eCW1 ([facility]) Smoking 07/12/2020 12:00:00 AM EST Former Smoker completed Former Smoker eCW1 ([facility]) Smoking 07/12/2020 12:00:00 AM EST Former Smoker completed Former Smoker eCW1 ([facility]) Smoking 06/07/2020 01:14:11 PM EST Ex-smoker (finding) complet ed Ex-smoker (finding) RENETTA ([facility]) Smoking 03/03/2020 12:00:00 AM EDT Patient is a former smoker completed Patient is a former smoker MEDENT ([facility], [facility]) Smoking 02/22/2020 12:00:00 AM EDT Former Smoker completed Former Smoker eCW1 ([facility]) Smoking 02/22/2020 12:00:00 AM EDT Former Smoker completed Former Smoker eCW1 ([facility]) Smoking 02/22/2020 12:00:00 AM EDT Former Smoker completed Former Smoker eCW1 ([facility]) Smoking 02/22/2020 12:00:00 AM EDT Former Smoker completed Former Smoker eCW1 ([facility]) Smoking 02/22/2020 12:00:00 AM EDT Former Smoker completed Former Smoker eCW1 ([facility]) Smoking 02/22/2020 12:00:00 AM EDT Former Smoker completed Former Smoker eCW1 ([facility]) Smoking 02/20/2020 12:00:00 AM EDT Former Smoker completed Former Smoker eCW1 ([facility]) Smoking 02/19/2020 12:00:00 AM EDT Former Smoker completed Former Smoker eCW1 ([facility]) Smoking 02/16/2020 12:00:00 AM EDT Former Smoker completed Former Smoker eCW1 ([facility]) Smoking 02/14/2020 12:00:00 AM EDT Former Smoker completed Former Smoker eCW1 ([facility]) Smoking 02/14/2020 12:00:00 AM EDT Former Smoker completed Former Smoker eCW1 ([facility]) Smoking 02/12/2020 12:00:00 AM EDT Former Smoker completed Former Smoker eCW1 ([facility]) Smoking 01/18/2020 12:00:00 AM EDT Former Smoker completed Former Smoker eCW1 ([facility]) Smoking 01/18/2020 12:00:00 AM EDT Former Smoker completed Former Smoker eCW1 ([facility]) Smoking 01/18/2020 12:00:00 AM EDT Former Smoker completed Former Smoker eCW1 ([facility]) Smoking 01/05/2020 12:00:00 AM EDT Former Smoker completed Former Smoker eCW1 ([facility]) Smoking 01/05/2020 12:00:00 AM EDT Former Smoker completed Former Smoker eCW1 ([facility]) Smoking 01/05/2020 12:00:00 AM EDT Former Smoker completed Former Smoker eCW1 ([facility]) Smoking 01/05/2020 12:00:00 AM EDT Former Smoker completed Former Smoker eCW1 ([facility]) Vital Signs ID Date Data Source UNK Name Value Range Interpretation Code Description Data Source(s) Diastolic blood pressure 68 mm[Hg] 68 mm[Hg] eCW1 ([facility]) Systolic blood pressure 120 mm[Hg] 120 mm[Hg] e CW1 ([facility]) Body temperature 97.9 [degF] 97.9 [degF] eCW1 ( [facility]) Respiratory rate 18 /min 18 /min eCW1 ([facility]) Heart rate 71 /min 71 /min eCW1 ([facility]) Body mass index (BMI) [Ratio] 28.63 kg/m2 28.63 kg/m2 W1 ([facility]) Body height 66 [in_i] 66 [in_i] eCW1 ([facility]) Body weight 177.4 [lb_av] 177.4 [lb_av] eCW1 ([facility]) Diastolic blood pressure 76 mm[Hg] 76 mm[Hg] eCW1 ([facility]) Systolic blood pressure 120 mm[Hg] 120 mm[Hg] e CW1 ([facility]) Body temperature 98.2 [degF] 98.2 [degF] eCW1 ( [facility]) Respiratory rate 18 /min 18 /min eCW1 ([facility]) Heart rate 76 /min 76 /min eCW1 ([facility]) Body mass index (BMI) [Ratio] 30.66 kg/m2 30.66 kg/m2 eCW1 ([facility]) Body height 66 [in_i] 66 [in_i] eCW1 ([facility]) Body weight 190 [lb_av] 190 [lb_av] eCW1 ([facility]) Body mass index (BMI) [Ratio] 26.6 kg/m2 26.6 k g/m2 MEDENT ([facility], [facility]) Body height 65 [in_i] 65 [in_i] MEDENT ([facility], [facility]) 5'5" Body weight 160.00 [lb_av] 160.00 [lb_av] MEDEN T ([facility], [facility]) Body temperature 97.8 [degF] 97.8 [degF] MEDENT ([facility]) Oxygen saturation in Arterial blood by Pulse oximetry 97 % 97 % MEDENT ([facility], [facility]) Respiratory rate 17 /min 17 /min MEDENT ( [facility], [facility]) Heart rate 66 /min 66 /min MEDENT ([facility], [facility]) Diastolic blood pressure 60 mm[Hg] 60 mm[Hg] MEDENT ([facility], [facility]) Systolic blood pressure 102 mm[Hg] 102 mm[Hg] M EDENT ([facility], [facility]) Body temperature 97.5 [degF] 97.5 [degF] eCW1 ( [facility]) Respiratory rate 18 /min 18 /min eCW1 ([facility]) Heart rate 72 /min 72 /min eCW1 ([facility]) Body mass index (BMI) [Ratio] 26.63 kg/m2 26.63 kg/m2 eCW1 ([facility]) Body height 66 [in_i] 66 [in_i] eCW1 ([facility]) Body weight [lb_av] eCW1 ([facility]) Diastolic blood pressure 66 mm[Hg] 66 mm[Hg] eCW1 ([facility]) Systolic blood pressure 115 mm[Hg] 115 mm[Hg] e CW1 ([facility]) Body temperature 98 [degF] 98 [degF] eCW1 ([facility]) Respiratory rate 16 /min 16 /min eCW1 ([facility]) Heart rate 64 /min 64 /min eCW1 ([facility]) Body mass index (BMI) [Ratio] 29.05 kg/m2 29.05 kg/m2 eCW1 ([facility]) Body height 66 [in_i] 66 [in_i] eCW1 ([facility]) Body weight [lb_av] eCW1 ([facility]) Diastolic blood pressure 60 mm[Hg] 60 mm[Hg] eCW1 ([facility]) Systolic blood pressure 140 mm[Hg] 140 mm[Hg] e CW1 ([facility]) Body temperature 98.9 [degF] 98.9 [degF] eCW1 ( [facility]) Respiratory rate 16 /min 16 /min eCW1 ([facility]) Heart rate 63 /min 63 /min eCW1 ([facility]) Body mass index (BMI) [Ratio] 29.05 kg/m2 29.05 kg/m2 eCW1 ([facility]) Body height 66 [in_i] 66 [in_i] eCW1 ([facility]) Body weight 180 [lb_av] 180 [lb_av] eCW1 ([facility]) Diastolic blood pressure 74 mm[Hg] 74 mm[Hg] eCW1 ([facility]) Systolic blood pressure 130 mm[Hg] 130 mm[Hg] e CW1 ([facility]) Body temperature 97.6 [degF] 97.6 [degF] eCW1 ( [facility]) Respiratory rate 18 /min 18 /min eCW1 ([facility]) Heart rate 69 /min 69 /min eCW1 ([facility]) Body mass index (BMI) [Ratio] 29.18 kg/m2 29.18 kg/m2 eCW1 ([facility]) Body height 66 [in_i] 66 [in_i] eCW1 ([facility]) Body weight 180.8 [lb_av] 180.8 [lb_av] eCW1 ([facility]) Diastolic blood pressure 66 mm[Hg] 66 mm[Hg] eCW1 ([facility]) Systolic blood pressure 110 mm[Hg] 110 mm[Hg] e CW1 ([facility]) Body temperature 97.8 [degF] 97.8 [degF] eCW1 ( [facility]) Respiratory rate 18 /min 18 /min eCW1 ([facility]) Heart rate 68 /min 68 /min eCW1 ([facility]) Body mass index (BMI) [Ratio] 29.08 kg/m2 29.08 kg/m2 W1 ([facility]) Body height 66 [in_i] 66 [in_i] eCW1 ([facility]) Body weight 180.2 [lb_av] 180.2 [lb_av] eCW1 ([facility]) Diastolic blood pressure 82 mm[Hg] 82 mm[Hg] eCW1 ([facility]) Systolic blood pressure 128 mm[Hg] 128 mm[Hg] e CW1 ([facility]) Body temperature 97.7 [degF] 97.7 [degF] eCW1 ( [facility]) Respiratory rate 18 /min 18 /min eCW1 ([facility]) Heart rate 68 /min 68 /min eCW1 ([facility]) Body mass index (BMI) [Ratio] 29.24 kg/m2 29.24 kg/m2 eCW1 ([facility]) Body height 66 [in_i] 66 [in_i] eCW1 ([facility]) Body weight 181.2 [lb_av] 181.2 [lb_av] eCW1 ([facility]) Body mass index (BMI) [Ratio] 31.9 kg/m2 31.9 k g/m2 MEDENT ([facility] ) Body weight 183.12 [lb_av] 183.12 [lb_av] MEDEN T ([facility] ) Body height 63.5 [in_i] 63.5 [in_i] MEDENT ([facility] ) 5'3.50" Body temperature 97.6 [degF] 97.6 [degF] MEDENT ([facility] ) Diastolic blood pressure 74 mm[Hg] 74 mm[Hg] eCW1 ([facility]) Systolic blood pressure 120 mm[Hg] 120 mm[Hg] e CW1 ([facility]) Body temperature 96.3 [degF] 96.3 [degF] eCW1 ( [facility]) Respiratory rate 18 /min 18 /min eCW1 ([facility]) Heart rate 85 /min 85 /min eCW1 ([facility]) Body mass index (BMI) [Ratio] 29.95 kg/m2 29.95 kg/m2 eCW1 ([facility]) Body height 66 [in_i] 66 [in_i] eCW1 ([facility]) Body weight 185.6 [lb_av] 185.6 [lb_av] eCW1 ([facility]) Body weight 84.370 kg 84.370 kg MEDENT ([facility], ) Body mass index (BMI) [Ratio] 30.9 kg/m2 30.9 k g/m2 MEDENT ([facility], ) Body weight 186.00 [lb_av] 186.00 [lb_av] MEDEN T ([facility], ) Body height 65 [in_i] 65 [in_i] MEDENT ([facility], ) 5'5" Diastolic blood pressure 74 mm[Hg] 74 mm[Hg] MEDJAY ([facility], ) Systolic blood pressure 122 mm[Hg] 122 mm[Hg] M LANDEN ([facility], ) Diastolic blood pressure 70 mm[Hg] 70 mm[Hg] eCW1 ([facility]) Systolic blood pressure 130 mm[Hg] 130 mm[Hg] e CW1 ([facility]) Body temperature 97.5 [degF] 97.5 [degF] eCW1 ( [facility]) Respiratory rate 18 /min 18 /min eCW1 ([facility]) Heart rate 69 /min 69 /min eCW1 ([facility]) Body mass index (BMI) [Ratio] 29.99 kg/m2 29.99 kg/m2 W1 ([facility]) Body height 66 [in_us] 66 [in_us] eCW1 ([facility]) Body weight Measured 185.8 [lb_av] 185.8 [lb_av ] eCW1 ([facility]) Diastolic blood pressure 80 mm[Hg] 80 mm[Hg] eCW1 ([facility]) Systolic blood pressure 122 mm[Hg] 122 mm[Hg] e CW1 ([facility]) Body temperature 96.3 [degF] 96.3 [degF] eCW1 ( [facility]) Respiratory rate 18 /min 18 /min eCW1 ([facility]) Heart rate 68 /min 68 /min eCW1 ([facility]) Body mass index (BMI) [Ratio] 30.55 kg/m2 30.55 kg/m2 W1 ([facility]) Body height 66 [in_us] 66 [in_us] eCW1 ([facility]) Body weight Measured 189.3 [lb_av] 189.3 [lb_av ] eCW1 ([facility]) Diastolic blood pressure 74 mm[Hg] 74 mm[Hg] eCW1 ([facility]) Systolic blood pressure 122 mm[Hg] 122 mm[Hg] e CW1 ([facility]) Body temperature 97 [degF] 97 [degF] eCW1 ([facility]) Respiratory rate 18 /min 18 /min eCW1 ([facility]) Heart rate 64 /min 64 /min eCW1 ([facility]) Body mass index (BMI) [Ratio] 30.47 kg/m2 30.47 kg/m2 eCW1 ([facility]) Body height 66 [in_us] 66 [in_us] eCW1 ([facility]) Body weight Measured 188.8 [lb_av] 188.8 [lb_av ] eCW1 ([facility]) Diastolic blood pressure 70 mm[Hg] 70 mm[Hg] eCW1 ([facility]) Systolic blood pressure 120 mm[Hg] 120 mm[Hg] e CW1 ([facility]) Body temperature 96.1 [degF] 96.1 [degF] eCW1 ( [facility]) Respiratory rate 18 /min 18 /min eCW1 ([facility]) Heart rate 75 /min 75 /min eCW1 ([facility]) Body mass index (BMI) [Ratio] 29.08 kg/m2 29.08 kg/m2 W1 ([facility]) Body height 66 [in_us] 66 [in_us] eCW1 ([facility]) Body weight Measured 180.2 [lb_av] 180.2 [lb_av ] eCW1 ([facility]) Diastolic blood pressure 70 mm[Hg] 70 mm[Hg] eCW1 ([facility]) Systolic blood pressure 128 mm[Hg] 128 mm[Hg] e CW1 ([facility]) Body temperature 97.8 [degF] 97.8 [degF] eCW1 ( [facility]) Respiratory rate 18 /min 18 /min eCW1 ([facility]) Heart rate 68 /min 68 /min eCW1 ([facility]) Body mass index (BMI) [Ratio] 29.53 kg/m2 29.53 kg/m2 eCW1 ([facility]) Body height 66 [in_us] 66 [in_us] eCW1 ([facility]) Body weight Measured 183 [lb_av] 183 [lb_av] eC W1 ([facility]) Diastolic blood pressure 64 mm[Hg] 64 mm[Hg] eCW1 ([facility]) Systolic blood pressure 100 mm[Hg] 100 mm[Hg] e CW1 ([facility]) Body mass index (BMI) [Ratio] 27.27 kg/m2 27.27 kg/m2 eCW1 ([facility]) Body height 66 [in_us] 66 [in_us] eCW1 ([facility]) Body weight Measured 169 [lb_av] 169 [lb_av] eC W1 ([facility]) Diastolic blood pressure 76 mm[Hg] 76 mm[Hg] eCW1 ([facility]) Systolic blood pressure 118 mm[Hg] 118 mm[Hg] e CW1 ([facility]) Body mass index (BMI) [Ratio] 29.05 kg/m2 29.05 kg/m2 eCW1 ([facility]) Body height 66 [in_us] 66 [in_us] eCW1 ([facility]) Body weight Measured 180 [lb_av] 180 [lb_av] eC W1 ([facility]) Diastolic blood pressure 72 mm[Hg] 72 mm[Hg] eCW1 ([facility]) Systolic blood pressure 120 mm[Hg] 120 mm[Hg] e CW1 ([facility]) Body temperature 97.9 [degF] 97.9 [degF] eCW1 ( [facility]) Respiratory rate 18 /min 18 /min eCW1 ([facility]) Heart rate 96 /min 96 /min eCW1 ([facility]) Body mass index (BMI) [Ratio] 30.02 kg/m2 30.02 kg/m2 eCW1 ([facility]) Body height 66 [in_us] 66 [in_us] eCW1 ([facility]) Body weight Measured 186 [lb_av] 186 [lb_av] eC W1 ([facility]) Body mass index (BMI) [Ratio] 26.6 kg/m2 26.6 k g/m2 MEDENT ([facility], [facility]) Body height 65 [in_i] 65 [in_i] MEDENT ([facility]) 5'5" Body weight 160.00 [lb_av] 160.00 [lb_av] MEDEN T ([facility], [facility]) Oxygen saturation in Arterial blood by Pulse oximetry 95 % 95 % MEDENT ([facility], [facility]) Respiratory rate 18 /min 18 /min MEDENT ( [facility]) Heart rate 92 /min 92 /min MEDENT ([facility], [facility]) Diastolic blood pressure 80 mm[Hg] 80 mm[Hg] MEDENT ([facility], [facility]) Systolic blood pressure 137 mm[Hg] 137 mm[Hg] M EDENT ([facility], [facility]) Diastolic blood pressure 72 mm[Hg] 72 mm[Hg] eCW1 ([facility]) Systolic blood pressure 122 mm[Hg] 122 mm[Hg] e CW1 ([facility]) Body temperature 97.6 [degF] 97.6 [degF] eCW1 ( [facility]) Respiratory rate 18 /min 18 /min eCW1 ([facility]) Heart rate 91 /min 91 /min eCW1 ([facility]) Body mass index (BMI) [Ratio] 29.28 kg/m2 29.28 kg/m2 W1 ([facility]) Body height 66 [in_us] 66 [in_us] eCW1 ([facility]) Body weight Measured 181.4 [lb_av] 181.4 [lb_av ] eCW1 ([facility]) Body mass index (BMI) [Ratio] 26.6 kg/m2 26.6 k g/m2 MEDENT ([facility], [facility]) Body height 65 [in_i] 65 [in_i] MEDENT ([facility], [facility]) 5'5" Body weight 160.00 [lb_av] 160.00 [lb_av] MEDEN T ([facility], [facility]) Body temperature 98.6 [degF] 98.6 [degF] MEDENT ([facility]) Oxygen saturation in Arterial blood by Pulse oximetry 97 % 97 % MEDENT ([facility]) Respiratory rate 18 /min 18 /min MEDENT ( [facility]) Heart rate 80 /min 80 /min MEDENT ([facility], [facility]) Diastolic blood pressure 68 mm[Hg] 68 mm[Hg] MEDENT ([facility]) Systolic blood pressure 100 mm[Hg] 100 mm[Hg] M EDENT ([facility]) ID Date Data Source [id number] 07/03/2020 02:28:56 PM [facility] Name Value Range Interpretation Code Description Data Source(s) WEIGHT RECORDED 198.00 pounds 198.00 pounds [facility] Height 65 Inches 065 Inches [facility] WEIGHT RECORDED 202.50 pounds 202.50 pounds [facility] Height 65 Inches 065 Inches [facility] ID Date Data Source [id number] 03/28/2020 12:34:16 PM [facility] Name Value Range Interpretation Code Description Data Source(s) WEIGHT RECORDED 177.80 pounds 177.80 pounds [facility] Height 67 Inches 067 Inches [facility] Patient Treatment Plan of Care Planned Activity Planned Date Details Description Data Source (s) Apixaban 2.5 MG 07/08/2020 12:00:00 AM EST eCW1 ([facility]) Amlodipine 5 MG Oral Tablet 07/08/2020 12:00:00 AM EST eCW1 ([facility] To [facility]) valacyclovir 1000 MG Oral Tablet [Valtrex] 06/07/2020 12:00:[address] RENETTA ([facility]) prednisolone acetate 10 MG/ML Ophthalmic Suspension [P red Forte] 06/07/2020 12:00:00 AM EST RENETTA ([facility]) valacyclovir 1000 MG Oral Tablet [Valtrex] 05/28/2020 12:00:00 AM E DT RENETTA ([facility]) prednisolone acetate 10 MG/ML Ophthalmic Suspension [P red Forte] 05/28/2020 12:00:00 AM EDT RENETTA ([facility]) Cephalexin 250 MG Oral Tablet 02/12/2020 12:00:00 AM EDT eCW1 ([facility]) Potassium Chloride 10 MEQ Extended Release Oral Tablet 12/14/2019 12:00:00 AM EDT eCW1 ([facility]) apixaban 2.5 MG Oral Tablet [Eliquis] 12/14/2019 12:00:00 AM EDT eCW1 ([facility]) apixaban 2.5 MG Oral Tablet [Eliquis] 12/14/2019 12:00:00 AM EDT eCW1 ([facility]ending [facility]) apixaban 2.5 MG Oral Tablet [Eliquis] 12/14/2019 12:00:00 AM EDT eCW1 ([facility] To [facility]) apixaban 2.5 MG Oral Tablet [Eliquis] 12/14/2019 12:00:00 AM EDT eCW1 ([facility]) apixaban 2.5 MG Oral Tablet [Eliquis] 12/14/2019 12:00:00 AM EDT eCW1 ([facility]) apixaban 2.5 MG Oral Tablet [Eliquis] 12/14/2019 12:00:00 AM EDT eCW1 ([facility]) apixaban 2.5 MG Oral Tablet [Eliquis] 12/14/2019 12:00:00 AM EDT eCW1 ([facility]) apixaban 2.5 MG Oral Tablet [Eliquis] 12/14/2019 12:00:00 AM EDT eCW1 ([facility] To [facility]) Bactroban 2% 11/29/2019 12:00:00 AM EDT e CW1 ([facility]) Cephalexin 500 MG Oral Tablet 11/29/2019 12:00:00 AM EDT eCW1 ([facility] To [facility]) gabapentin 100 MG Oral Capsule 11/08/2019 12:00:00 AM EDT eCW1 ([facility] To [facility]) Magnesium Oxide 400 MG 10/19/2019 12:00:00 AM EDT eCW1 ([facility] To [facility]) K Dur 20 MEQ 10/19/2019 12:00:00 AM EDT e CW1 ([facility]) 24 HR metoprolol succinate 50 MG Extended Release Oral Tablet 10/19/2019 12:00:00 AM EDT eCW1 ([facility]) valacyclovir 500 MG Oral Tablet [Valtrex] 06/22/2019 12:00:00 AM ES T RENETTA ([facility]) loteprednol etabonate 0.005 MG/MG Ophthalmic Gel [Lote max] 02/24/2019 12:00:00 AM EDT RENETTA ([facility]) doxycycline hyclate 50 MG Oral Tablet 02/10/2019 12:00:00 AM EDT RENETTA ([facility])
[2020-09-20 10:18] VITALS: BP 145/68
== END 2020-09-20 10:19 | disposition home or self-care (01) ==
LOC: M ED 08:13
DX: H53.10 Unspecified subjective visual disturbances (principal); J02.9 Acute pharyngitis, unspecified; Z79.899 Other long term (current) drug therapy; Z79.82 Long term (current) use of aspirin; Z79.01 Long term (current) use of anticoagulants; Z88.8 Allergy status to other drugs, medicaments and biological substances; F17.210 Nicotine dependence, cigarettes, uncomplicated

== ENCOUNTER 2020-11-07 01:20 | Inpatient (IN) | payer MEDICARE ==
[~2020-11-07] VITALS: Ht 172.7 cm; Wt 81.7 kg
[2020-11-07] MEDS ORDERED: BOOSTRIX/ADACEL VACCINE (DIPHTH/PERTUSS/ACELL/TETANUS) 0.5ML SYR IM ONE (06:20)
[2020-11-07] MEDS ORDERED: ASPI81TA26 PO (06:45)
[2020-11-07] MEDS ORDERED: ALLO100T PO (06:45)
[2020-11-07] MEDS ORDERED: ACET-683 PO (06:45)
[2020-11-07] MEDS ORDERED: OMEP-221 PO (06:45)
[2020-11-07] MEDS ORDERED: ATOR80TA59 PO (06:45)
[2020-11-07] MEDS ORDERED: ELIQ2.5T PO (06:45)
[2020-11-07] MEDS ORDERED: GABA-1171 PO (06:45)
[2020-11-07] MEDS ORDERED: DOXE10CA PO (06:45)
[2020-11-07] MEDS ORDERED: KEPP1TAB PO (06:45)
[2020-11-07] MEDS ORDERED: VALA500T5 PO (06:45)
[2020-11-07] MEDS ORDERED: MONT10TA10 PO (06:45)
[2020-11-07] MEDS ORDERED: AMLO1TAB24 PO (06:45)
[2020-11-07] MEDS ORDERED: MAGN400T2 PO (06:45)
[2020-11-07] MEDS ORDERED: METO1TAB7 PO (06:45)
[2020-11-07] MEDS ORDERED: D32000TA PO (06:45)
[2020-11-07] MEDS ORDERED: COMMENTS (06:46)
--- NOTE | 2020-11-07 07:16 | REPVR ---
PROCEDURE INFORMATION: Exam: XR Chest Exam date and time: 11/07/2020 6:43 AM Age: 80 years old Clinical indication: Other: Le edema TECHNIQUE: Imaging protocol: XR of the chest. Views: 2 views. COMPARISON: CR Chest, 1 view 07/22/2020 9:29 PM FINDINGS: Tubes, catheters and devices: There is a right-sided port with its distal tip in the right atrium. Lungs: No consolidation. Pleural spaces: No pleural effusion. No pneumothorax. Heart/Mediastinum: No cardiomegaly. Vasculature: The aorta is calcified and slightly tortuous. Bones/joints: There are some degenerative changes of the spine. IMPRESSION: No evidence of active pulmonary disease. Electronically signed by: Nicola Garcia On 11/07/2020 07:16:56 AM
--- NOTE | 2020-11-07 07:22 | REPVR ---
PROCEDURE INFORMATION: Exam: XR Right Foot Exam date and time: 11/07/2020 6:43 AM Age: 80 years old Clinical indication: Other: Injury; Additional info: R foot/toe injury TECHNIQUE: Imaging protocol: XR Right foot. Views: 3 or more views. COMPARISON: CT-Foot WITHOUT CONTRAST 03/02/2018 10:41 AM FINDINGS: Bones/joints: There is an acute intra-articular fracture of the 4th proximal phalanx which extends to the MTP. This is demonstrated best on image 1003. There is mild fibular angulation of the 1st proximal phalanx. There is linear sclerosis crossing the 5th proximal phalanx consistent with a subacute or chronic fracture. However , there is also a acute injury of the 5th proximal phalanx present as well, seen best on image 1001 abdominal which extends to the MTP. There is a healed fracture of the right 5th metatarsal. There is erosive change involving the 2nd and 3rd metatarsal heads with flattening which can be seen with chronic osteonecrosis. Soft tissues: Normal. IMPRESSION: 1. There is an acute intra-articular fracture of the 4th and 5th proximal phalanges which extend to the 4th and 5th MTPs. 2. Healed traumatic change in arthritic changes described. Electronically signed by: Nicola Garcia On 11/07/2020 07:22:37 AM
--- NOTE | 2020-11-07 07:23 | REPVR ---
PROCEDURE INFORMATION: Exam: US Duplex Right Lower Extremity Veins, Limited Exam date and time: 11/07/2020 6:53 AM Age: 80 years old Clinical indication: Pain; Leg, lower; Right; Additional info: R/O dvt rle TECHNIQUE: Imaging protocol: Real-time Duplex ultrasound of the Right Lower Extremity with 2-D pope scale, color Doppler flow and spectral waveform analysis with image documentation. Limited exam was focused on the right lower extremity veins. COMPARISON: US Duplex, Ext LOWER veins, bilat 07/22/2020 9:41 PM FINDINGS: Right deep veins: Unremarkable. The common femoral, femoral, proximal profunda femoral and popliteal veins are patent without thrombus. Normal Doppler waveforms. Normal compressibility and/or augmentation response. Right superficial veins: Unremarkable. Saphenofemoral junction is patent without thrombus. Soft tissues: Unremarkable. IMPRESSION: No evidence of deep vein thrombosis. Electronically signed by: Nicola Garcia On 11/07/2020 07:24:08 AM
[2020-11-07 08:27] LABS: BASO % 0.7 % (0.0-1.0); EOS # 0.7 10^3/uL (0.0-0.5); EOS % 12.4 % (0.0-3.0); HEMATOCRIT 30.8 % (42.0-52.0); HEMOGLOBIN 9.8 g/dl (13.5-17.5); LYMPH # 0.8 10^3/uL (1.5-5.0); LYMPH % 13.9 % (24.0-44.0); MEAN CORPUSCULAR HEMOGLOBIN 26.7 pg (27.0-33.0); MEAN CORPUSCULAR HGB CONC 31.8 g/dl (32.0-36.5); MEAN CORPUSCULAR VOLUME 83.9 fl (80.0-96.0); MONO # 0.8 10^3/uL (0.0-0.8); MONO % 14.7 % (2.0-8.0); NEUTROPHILS # 3.1 10^3/uL (1.5-8.5); NEUTROPHILS % 57.2 % (36.0-66.0); PLATELET COUNT, AUTOMATED 249 10^3/uL (150-450); RED BLOOD COUNT 3.67 10^6/uL (4.30-6.10); WHITE BLOOD COUNT 5.4 10^3/uL (4.0-10.0)
[2020-11-07 08:37] LABS: INR 1.09; PROTHROMBIN TIME 14.3 SECONDS (12.5-14.3)
[2020-11-07 08:55] LABS: ALBUMIN 3.8 GM/DL (3.2-5.2); ALT/SGPT 15 U/L (12-78); BILIRUBIN,DIRECT 0.2 MG/DL (0.0-0.2); BILIRUBIN,TOTAL 0.6 MG/DL (0.2-1.0); BLOOD UREA NITROGEN 16 MG/DL (7-18); C REACTIVE PROTEIN QUANTITATIV 3.63 MG/DL (0.00-0.30); CALCIUM LEVEL 8.9 MG/DL (8.8-10.2); CARBON DIOXIDE LEVEL 28 MEQ/L (21-32); CHLORIDE LEVEL 108 MEQ/L (98-107); CK-MB VALUE MASS 1.6 NG/ML (<3.6); CPK CREATINE PHOSPHOKINASE 140 U/L (39-308); CREATININE FOR GFR 1.35 MG/DL (0.70-1.30); GLOMERULAR FILTRATION RATE 54.1 (>35); GLUCOSE, FASTING 90 MG/DL (70-100); MB/CK RELATIVE INDEX 1.14 (< OR =4); NT-PRO BNP 965 PG/ML (<450); POTASSIUM SERUM 3.6 MEQ/L (3.5-5.1); SODIUM LEVEL 142 MEQ/L (136-145); TOTAL PROTEIN 6.3 GM/DL (6.4-8.2); TROPONIN I < 0.02 NG/ML (< 0.10)
[2020-11-07] MEDS ORDERED: FUROSEMIDE 40MG/4ML VIAL (J1940) IV ONE (09:00)
[2020-11-07] MEDS ORDERED: amLODIPine 5 MG TAB PO SCH (09:00)
[2020-11-07] MEDS ORDERED: cefTRIAXone SOD 1 GM in D5W MINI-BAG PLUS 50 ML IV ONE (09:10)
[2020-11-07 09:47] LABS: ERYTHROCYTE SEDIMENTATION RATE 37 mm/hr (0-20)
[2020-11-07] MEDS ORDERED: CEFTAROLINE FOSAMIL 300 MG in D5W 50 ML IV SCH (09:50)
[2020-11-07] MEDS: ASPIRIN 81MG ENTERIC TABLET PO SCH (12:55)
[2020-11-07] MEDS: levETIRAcetam 250MG TABLET (KEPPRA) PO SCH ×2 (12:56→22:00)
[2020-11-07] MEDS: APIXABAN 2.5 MG TAB (ELIQUIS) PO SCH ×2 (12:56→22:13)
[2020-11-07] MEDS: ATORVASTATIN 20 MG TAB PO SCH (12:57)
[2020-11-07] MEDS: GABAPENTIN 100 MG CAP PO SCH ×2 (12:58→21:59)
[2020-11-07] MEDS: METOPROLOL SUCC (TopROL XL) 50MG **XL** TAB PO SCH (13:00)
[2020-11-07] MEDS: OMEPRAZOLE 20 MG CAP PO SCH (13:00)
[2020-11-07] MEDS: valACYclovir HCL 500 MG TAB PO SCH (13:01)
[2020-11-07] MEDS: allopurinoL 100 MG TAB PO SCH (13:02)
[2020-11-07] MEDS: ACETAMINOPHEN TAB 650MG DOSE (2X325MG) PO PRN (13:03)
--- NOTE | 2020-11-07 14:37 | HPEPDOC ---
[facility] Medical History & Physical Date of Admission Nov 07, 2020 Date of Service: Nov 07, 2020 History and Physical Chief complaint: Patient was brought to the ER by ambulance after reporting confusion History of present illness: Patient is an 80-year-old male who presented to the emergency room via ambulance for confusion at home. Patient reports that he lives alone and his brother works at [employer]. Patient reported that he felt cooped up and called the ambulance for further assistance. Patient reported that he did feel little confused, however upon arrival to emergency room, reports that he feels normal. Patient is fully oriented to person, place, time and president. Patient denies any chest pain, shortness breath or cough. Denies any nausea, vomiting, abdominal pain. Reports that his last bowel movement was yesterday. He does have some incontinence with his bowel movements. Reports that his stool is normal colored. Denies any urinary discomfort or fevers or chills. Patient denies any falls, however 2 days ago. He was reporting that he ran his right foot into a steel plate. He reported at that time he was experiencing severe pain of his right toes had excessive bleeding. Patient reported that he was limping and in pain since then. 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) Bilateral venous stasis ulcers Sacral pressure ulcer Dysphagia (recommended mechanical soft / thin liquids) Legally blind Past Surgical History: Anterior cervical discectomy and fusion 2 Appendectomy Left breast benign tumor Testicular resection 15 years ago Bilateral knee replacements Carpal tunnel surgery 2012 Basal cell skin cancer 09/2019 Port placement 10/2019 Allergies: See below Medications: See below Family History: - Mother with history of skin cancer / heart disease - Father with history of lung cancer Social History: - Denies the use of alcohol or illicit drugs; patient was that he quit smoking 15 years ago - Denies recent travel or sick contacts - Lives alone - 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; 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 Review of Systems: 10 point review of systems complete, all negative otherwise stated in HPI Physical exam: - Vitals: BP [120/59], HR [102], RR [18], Sat [98%RA], Temp [98.0F] - General: Lying in bed, No acute distress, Speaking in full sentences, AAOx3 - HEENT: NC, AT, PERRLA - CVS: RRR, +S1S2 - Lungs: Fair air entry bilaterally, No appreciable wheezing / rales / rhonchi - Abdomen: Soft, Non-distended, Non-tender - Extremities: 2+ pitting edema bilaterally, No calf tenderness - Neuro: No focal motor or sensory deficit - Skin: R foot with tenderness, some bleeding noted around toes Labs: See below Imaging: CXR 11/07: No evidence of active pulmonary disease. Foot XR 11/07: 1. There is an acute intra-articular fracture of the 4th and 5th proximal phalanges which extend to the 4th and 5th MTPs. 2. Healed traumatic change in arthritic changes described. Vascular US 11/07: No evidence of deep vein thrombosis. EKG: See below Assessment and Plan: R foot pain - likely 2/2 acute fracture; less likely 2/2 infeciton - Patient reports that he ran his right foot into a steel plate - Physical reveals tenderness or on the right foot - Imaging noted above - Will check blood cultures, wound cultures, pro-calcitonin - Will start Ceftaroline (re: MRSA coverage) - Will consult orthopedic surgery; case discussed with Dr. 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 ) - c/w Gabapentin / Valacyclovir Bilateral venous stasis ulcers / Sacral pressure ulcer Depression - c/w Doxepin Dysphagia - Prior recommendation for mechanical soft / thin liquids - Will get speech therapy evaluation Legally blind GERD - c/w Omeprazole DVT prophylaxis - Will c/w full anticoagulation with Eliquis Vital Signs Vital Signs Date Time Temp Pulse Resp B/P (MAP) Pulse Ox O2 Delivery O2 Flow Rate FiO2 11/07/20 13:00 102 120/59 11/07/20 05:14 98 Room Air 11/07/20 05:05 18 11/07/20 01:30 98.0 Laboratory Data Labs 24H Laboratory Tests 2 11/07/20 08:09: Immature Granulocyte % (Auto) 1.1, Neutrophils (%) (Auto) 57.2, Lymphocytes (%) (Auto) 13.9L, Monocytes (%) (Auto) 14.7H, Eosinophils (%) (Auto) 12.4H, Basophils (%) (Auto) 0.7, Neutrophils # (Auto) 3.1, Lymphocytes # (Auto) 0.8L, Monocytes # (Auto) 0.8, Eosinophils # (Auto) 0.7H, Basophils # (Auto) 0.0, Nucleated Red Blood Cells % (auto) 0.0, Erythrocyte Sedimentation Rate 37H, Prothrombin Time 14.3H, Prothromb Time International Ratio 1.09, Activated Partial Thromboplast Time 20.0L, Anion Gap 6L, Glomerular Filtration Rate 54.1, Calcium Level 8.9, Total Bilirubin 0.6, Direct Bilirubin 0.2, Aspartate Amino Transf (AST/SGOT) 19, Alanine Aminotransferase (ALT/SGPT) 15, Alkaline Phosphat ase 202H, Total Creatine Kinase 140, Creatine Kinase MB 1.6, Creatine Kinase MB Relative Index 1.14, Troponin I < 0.02, C-Reactive Protein, Quantitative 3.63H, LM-Dpy-U-Type Natriuretic Peptide 965H, Total Protein 6.3L, Albumin 3.8, Albumin/Globulin Ratio 1.5 11/07/20 08:10: Lactic Acid Level 1.0 11/07/20 08:19: Procalcitonin <0.05 CBC/BMP Laboratory Tests 11/07/20 08:09 Microbiology Microbiology 11/07/20 Blood Culture, Received Pending 11/07/20 Respiratory Virus Panel (PCR) (CHANTAL) - Final, Complete 11/07/20 Blood Culture, Received Pending Home Medications Scheduled Allopurinol (Allopurinol) 100 Mg Tablet, 100 MG PO DAILY Amlodipine Besylate (Amlodipine Besylate) 5 Mg Tablet, 5 MG PO DAILY Apixaban (Eliquis) 2.5 Mg Tablet, 2.5 MG PO BID Aspirin (Aspirin EC) 81 Mg Tablet.dr, 81 MG PO DAILY Atorvastatin Calcium (Atorvastatin Calcium) 80 Mg Tablet, 80 MG PO DAILY Cholecalciferol (Vitamin D3) (Vitamin D3) 50 Mcg Tablet, 50 MCG PO DAILY Doxepin HCl (Doxepin HCl) 10 Mg Capsule, 10 MG PO QHS Gabapentin (Gabapentin) 100 Mg Capsule, 100 MG PO BID Levetiracetam (Keppra) 500 Mg Tablet, 500 MG PO BID Magnesium Oxide (Magnesium Oxide) 400 Mg Tablet, 400 MG PO BID Metoprolol Succinate (Metoprolol Succinate) 50 Mg Tab.er.24h, 50 MG PO DAILY Montelukast Sodium (Montelukast Sodium) 10 Mg Tablet, 10 MG PO QHS Omeprazole (Omeprazole) 40 Mg Capsule.dr, 40 MG PO DAILY Triamcinolone Acet (Triamcinolone Acetonide 0.1% Crm) 80 Gm Cream..g., 1 DOSE TOP BID APPLIES TO RIGHT LEG Valacyclovir HCl (Valacyclovir) 500 Mg Tablet, 500 MG PO DAILY Scheduled PRN Acetaminophen (Acetaminophen) 500 Mg Tablet, 500 MG PO Q8H PRN for PAIN Halobetasol Propionate (Halobetasol Propionate) 50 Gm Cream..g., 1 DOSE TOP BID PRN for RASH APPLIES TO TRUNK AND EXTERMITIES Miscellaneous Medications [Comments] EXTERNAL MED HISTORY USED TO COMPILE MED LIST Allergies Coded Allergies: ciclopirox (Verified Allergy, Intermediate, rash, hives, 06/12/19) TRAE OLIVEIRA MD Nov 07, 2020 14:37
[2020-11-07] MEDS ORDERED: NS 500 ML IV ONE (16:00)
[2020-11-07] MEDS ORDERED: FUROSEMIDE 40MG/4ML VIAL (J1940) IV SCH (17:00)
[2020-11-07] MEDS ORDERED: NS 1,000 ML IV ONE ×2 (17:15→19:40)
[2020-11-07 20:18] LABS: HEMATOCRIT 28.9 % (42.0-52.0); HEMOGLOBIN 9.1 g/dl (13.5-17.5); MEAN CORPUSCULAR HEMOGLOBIN 26.8 pg (27.0-33.0); MEAN CORPUSCULAR HGB CONC 31.5 g/dl (32.0-36.5); PLATELET COUNT, AUTOMATED 188 10^3/uL (150-450)
[2020-11-07 20:40] LABS: EOSINOPHILS 3 % (0-3); LYMPHOCYTES 4 % (16-44); METAMYELOCYTES 2 % (0-0); MONOCYTES 2 % (0-5); NEUTROPHILS 79 % (28-66); TOXIC VACUOLATION 1+
[2020-11-07 20:41] LABS: ANISOCYTOSIS 1+; HYPOCHROMASIA 1+; PLATELET ESTIMATE NORMAL (NORMAL)
[2020-11-07 20:50] LABS: ALBUMIN 2.9 GM/DL (3.2-5.2); BILIRUBIN,TOTAL 0.7 MG/DL (0.2-1.0); C REACTIVE PROTEIN QUANTITATIV 5.3 MG/DL (0.00-0.30); CALCIUM LEVEL 7.7 MG/DL (8.8-10.2); CK-MB VALUE MASS 1.4 NG/ML (<3.6); CREATININE FOR GFR 1.67 MG/DL (0.70-1.30); GLOMERULAR FILTRATION RATE 42.4 (>35); MAGNESIUM LEVEL 1.5 MG/DL (1.8-2.4); MB/CK RELATIVE INDEX 0.85 (< OR =4); POTASSIUM SERUM 3.4 MEQ/L (3.5-5.1); TOTAL PROTEIN 4.9 GM/DL (6.4-8.2); TROPONIN I 0.03 NG/ML (< 0.10)
[2020-11-07 21:20] VITALS: BP 117/55
[2020-11-07] MEDS ORDERED: POTASSIUM CHLORIDE 10 MEQ SR TABLET PO ONE (21:25)
[2020-11-07] MEDS ORDERED: MAG SULF 1GM/100ML (MAG RUN) 1 GM in IV 1 EA IV ONE (21:25)
[2020-11-07] MEDS: MONTELUKAST 10 MG TAB PO SCH (21:59)
[2020-11-07 22:00] VITALS: BP 114/56
[2020-11-07] MEDS: MAGNESIUM OXIDE 400MG TAB (MAG-OX) PO SCH (22:00)
[2020-11-07 22:30] VITALS: BP 111/58
[2020-11-07 23:00] VITALS: BP 112/59
[2020-11-07] MEDS: DOXEPIN 10 MG CAP PO SCH (23:18)
[2020-11-07] MEDS: TRIAMCINOLONE ACET 0.1% CREAM 80 GM TOP SCH (23:19)
[2020-11-07] MEDS: CEFTAROLINE FOSAMIL 600 MG in D5W MINI-BAG PLUS 50 ML IV SCH (23:19)
[2020-11-07 23:30] VITALS: BP 116/58
[2020-11-08] VITALS (35 sets, daily range): BP systolic 73–129; BP diastolic 42–69
[2020-11-08 05:41] LABS: HEMATOCRIT 29.9 % (42.0-52.0); HEMOGLOBIN 9.4 g/dl (13.5-17.5); MEAN CORPUSCULAR HEMOGLOBIN 26.6 pg (27.0-33.0); MEAN CORPUSCULAR HGB CONC 31.4 g/dl (32.0-36.5); MEAN CORPUSCULAR VOLUME 84.5 fl (80.0-96.0); PLATELET COUNT, AUTOMATED 195 10^3/uL (150-450); RED BLOOD COUNT 3.54 10^6/uL (4.30-6.10); WHITE BLOOD COUNT 9.2 10^3/uL (4.0-10.0)
--- NOTE | 2020-11-08 05:54 | ECGEPIP ---
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
[2020-11-08 06:05] LABS: ALBUMIN 2.9 GM/DL (3.2-5.2); BILIRUBIN,TOTAL 0.6 MG/DL (0.2-1.0); CALCIUM LEVEL 7.7 MG/DL (8.8-10.2); CREATININE FOR GFR 1.49 MG/DL (0.70-1.30); GLOMERULAR FILTRATION RATE 48.3 (>35); POTASSIUM SERUM 3.7 MEQ/L (3.5-5.1); TOTAL PROTEIN 5.1 GM/DL (6.4-8.2)
[2020-11-08] MEDS: ACETAMINOPHEN TAB 650MG DOSE (2X325MG) PO PRN ×4 (06:06→23:56)
[2020-11-08 06:30] LABS: ANISOCYTOSIS 1+; EOSINOPHILS 3 % (0-3); METAMYELOCYTES 2 % (0-0); MONOCYTES 3 % (0-5); NEUTROPHILS 86 % (28-66); OVALOCYTES 1+; PLATELET ESTIMATE NORMAL (NORMAL)
[2020-11-08] MEDS: GABAPENTIN 100 MG CAP PO SCH ×2 (10:05→20:59)
[2020-11-08] MEDS: VITAMIN D 1,000 INTERNATIONAL UNITS TABLET PO SCH (10:05)
[2020-11-08] MEDS: ATORVASTATIN 20 MG TAB PO SCH (10:05)
[2020-11-08] MEDS: levETIRAcetam 250MG TABLET (KEPPRA) PO SCH ×2 (10:05→20:59)
[2020-11-08] MEDS: OMEPRAZOLE 20 MG CAP PO SCH (10:05)
[2020-11-08] MEDS: allopurinoL 100 MG TAB PO SCH (10:05)
[2020-11-08] MEDS: ASPIRIN 81MG ENTERIC TABLET PO SCH (10:05)
[2020-11-08] MEDS: APIXABAN 2.5 MG TAB (ELIQUIS) PO SCH ×2 (10:05→20:59)
[2020-11-08] MEDS: valACYclovir HCL 500 MG TAB PO SCH (10:06)
[2020-11-08] MEDS: MAGNESIUM OXIDE 400MG TAB (MAG-OX) PO SCH ×2 (10:06→20:59)
[2020-11-08] MEDS: CEFTAROLINE FOSAMIL 600 MG in D5W MINI-BAG PLUS 50 ML IV SCH ×3 (10:07→20:58)
[2020-11-08] MEDS: TRIAMCINOLONE ACET 0.1% CREAM 80 GM TOP SCH ×2 (10:07→20:59)
[2020-11-08] MEDS: METOPROLOL SUCC (TopROL XL) 50MG **XL** TAB PO SCH (10:07)
--- NOTE | 2020-11-08 11:50 | CR ---
CONSULTATION DATE: 11/07/2020 CHIEF COMPLAINT: Right acute intraarticular fracture fourth and fifth proximal phalanxes. HISTORY OF PRESENT ILLNESS: This 80-year-old man was consulted to me today. He apparently, according to the patient, kicked a steel plate. This was a few days ago. He was upset and "pissed off." PAST MEDICAL HISTORY: Per the patient, includes hypertension. However, per the history and physical exam by Dr. Sherman, this also includes: 1. Paroxysmal atrial fibrillation. 2. Diastolic congestive heart failure (CHF). 3. Hypertension. 4. Cerebrovascular accident (CVA). 5. Carotid stenosis. 6. Chronic kidney disease (CKD) stage III. 7. Chronic lymphocytic leukemia (CLL). 8. Dementia. 9. Epilepsy. 10. Cervical spine stenosis. 11. Herpes zoster. 12. Meningitis/encephalitis. 13. 14. Conjunctivitis. 15. Bilateral venous stasis ulcers. 16. Sacral pressure ulcers. 17. Dysphagia. 18. Legally blind. SURGICAL HISTORY: 1. Anterior cervical discectomy and fusion. 2. Appendectomy. 3. Left breast benign tumor. 4. Testicular resection 15 years ago. 5. Bilateral knee replacements. 6. Carpal tunnel surgery 2011. 7. Basal cell skin cancer. 8. MEDICATIONS: - allopurinol - amlodipine - Eliquis - aspirin - atorvastatin - cholecalciferol - doxepin - gabapentin - levetiracetam - magnesium oxide - metoprolol - montelukast - omeprazole - triamcinolone - valacyclovir ALLERGIES: CIPRO, SOCIAL HISTORY: Patient denies alcohol and drug use. PHYSICAL EXAMINATION: This is an 80-year-old man. He is legally blind. He communicates appropriately, but a little difficult to fully understand him. He has closed injuries to the right fourth and fifth toes. There is moderate swelling and pain there. The nails are quite long on the left side, all toes; however, on the right second and fourth toes, the nails seem to be gone. He can wiggle his toes. There is moderate swelling about the foot. Feet are warm, reasonably well-perfused. Capillary refill 3 seconds at the tips of the toes. IMAGING DATA: Foot x-ray from 11/07/2020 demonstrates acute intraarticular fracture of the fourth and fifth proximal phalanxes, which extend to the fourth and fifth metatarsophalangeals (MTPs). ASSESSMENT AND PLAN: This is an 80-year-old man with closed toe fractures in the right foot. I recommend weightbearing as tolerated, a stiff-sole cast shoe, which he already has and follow up in the clinic in two weeks' time. CRISPIN
--- NOTE | 2020-11-08 12:34 | IPNPDOC ---
Text Note Date of Service The patient was seen on 11/08/20. NOTE Subjective: Patient is an 80-year-old male who presented to the ER via ambulance for confusion at home. Patient reports that he lives alone and his brother works at [employer]. Patient reported that he felt cooped up and called the ambulance for further assistance. Patient reported that he did feel little confused, however upon arrival to emergency room, reports that he feels normal. Patient reported that he is having right foot pain after he banged it into a steel plate. Patient was admitted to the hospital service for further evaluation and treatment. Orthopedic surgery was called on consultation. Patient was seen and examined at the bedside. Currently patient denies any nausea, vomiting, chest pain, shortness breath, palpitations, abdominal pain, diarrhea, or urinary discomfort. He will be working with physical therapy today. Objective: Vitals (See below) General: Lying in bed, appears comfortable, AAOx3 HEENT: NC, AT CVS: +S1S2 Lungs: Fair air entry b/l, -w/r/r Abdomen: Soft, ND, NT Extremities: 1+ pitting edema bilaterally, - Calf tenderness Imaging: CXR 11/07: No evidence of active pulmonary disease. Foot XR 11/07: 1. There is an acute intra-articular fracture of the 4th and 5th proximal phalanges which extend to the 4th and 5th MTPs. 2. Healed traumatic change in arthritic changes described. Vascular US 11/07: No evidence of deep vein thrombosis. Assessment and plan: R foot pain - likely 2/2 acute fracture; less likely 2/2 infection - Patient reports that he ran his right foot into a steel plate - R foot tenderness - Imaging noted above - Will check blood cultures, wound cultures, pro-calcitonin - c/w Ceftaroline (re: MRSA coverage) - Orthopedic surgery; Dr. Kingsley on consultation; recommend stiff-sole cast shoe and weightbearing as tolerated - c/w PT and OT Acute on Chronic Diastolic CHF - Physical still reveals some evidence of lower extremity edema - Elevated BNP - CXR does not reveal any significant congestion - ECHO Pending - Strict ins/outs, daily weight, fluid restriction, salt restriction - Patient had received a dose of diuresis yesterday, however, became hypotensive and instead was given IV fluid hydration - Hold off on IV diuretics today Paroxysmal A fib - c/w rate control with metoprolol; will reduce dose - c/w full anticoagulation with Eliquis CKD3 - Cr baseline of 1.5 - Creatinine at baseline - s/p IV fluids HTN - BP well controlled - c/w Metoprolol and Amlodipine 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) - c/w Gabapentin / Valacyclovir Bilateral venous stasis ulcers / Sacral pressure ulcer Depression - c/w Doxepin Dysphagia - Prior recommendation for mechanical soft / thin liquids - Speech therapy evaluation today Legally blind GERD - c/w Omeprazole DVT prophylaxis - c/w full anticoagulation with Eliquis Disposition: - Awaiting clinical improvement Elizabeth DAMIAN I+O VSElizabeth I+O Laboratory Tests 11/07/20 20:07 11/08/20 04:24 Vital Signs Date Time Temp Pulse Resp B/P (MAP) Pulse Ox O2 Delivery O2 Flow Rate FiO2 11/08/20 10:07 91 127/69 11/08/20 06:00 18 93 Room Air 11/08/20 04:00 98.3 11/08/20 04:00 2.0 I&O- Last 24 Hours up to 6 AM 11/08/20 06:00 Intake Total 2825 ml Output Total 850 ml Balance 1975 ml TRAE OLIVEIRA MD Nov 08, 2020 12:34
[2020-11-08 13:54] LABS: CORTISOL AM 21.7 UG/DL (4.3-22.4)
[2020-11-08] MEDS ORDERED: NS 1,000 ML IV ONE (14:25)
[2020-11-08] MEDS: DOXEPIN 10 MG CAP PO SCH (20:59)
[2020-11-08] MEDS: MONTELUKAST 10 MG TAB PO SCH (20:59)
[2020-11-09] VITALS (29 sets, daily range): BP systolic 74–145; BP diastolic 43–77
[2020-11-09 05:21] LABS: HEMATOCRIT 31.8 % (42.0-52.0); HEMOGLOBIN 9.8 g/dl (13.5-17.5); MEAN CORPUSCULAR HEMOGLOBIN 26.1 pg (27.0-33.0); MEAN CORPUSCULAR HGB CONC 30.8 g/dl (32.0-36.5); MEAN CORPUSCULAR VOLUME 84.6 fl (80.0-96.0); PLATELET COUNT, AUTOMATED 190 10^3/uL (150-450); RED BLOOD COUNT 3.76 10^6/uL (4.30-6.10); WHITE BLOOD COUNT 6.5 10^3/uL (4.0-10.0)
[2020-11-09 05:36] LABS: EOSINOPHILS 11 % (0-3); LYMPHOCYTES 3 % (16-44); MONOCYTES 6 % (0-5); NEUTROPHILS 77 % (28-66)
[2020-11-09 05:37] LABS: ANISOCYTOSIS 1+; DOHLE BODIES 1+; OVALOCYTES 1+; PLATELET ESTIMATE NORMAL (NORMAL); POIKILOCYTOSIS 2+; POLYCHROMASIA 1+
[2020-11-09 05:38] LABS: TOXIC VACUOLATION 1+
[2020-11-09 05:49] LABS: ALBUMIN 2.6 GM/DL (3.2-5.2); ALT/SGPT 14 U/L (12-78); BILIRUBIN,TOTAL 0.4 MG/DL (0.2-1.0); BLOOD UREA NITROGEN 27 MG/DL (7-18); CALCIUM LEVEL 7.6 MG/DL (8.8-10.2); CARBON DIOXIDE LEVEL 26 MEQ/L (21-32); CHLORIDE LEVEL 112 MEQ/L (98-107); CREATININE FOR GFR 1.57 MG/DL (0.70-1.30); GLOMERULAR FILTRATION RATE 45.5 (>35); GLUCOSE, FASTING 95 MG/DL (70-100); MAGNESIUM LEVEL 2.2 MG/DL (1.8-2.4); POTASSIUM SERUM 3.3 MEQ/L (3.5-5.1); SODIUM LEVEL 144 MEQ/L (136-145); TOTAL PROTEIN 4.8 GM/DL (6.4-8.2)
[2020-11-09] MEDS: ACETAMINOPHEN TAB 650MG DOSE (2X325MG) PO PRN ×3 (06:37→18:38)
[2020-11-09] MEDS ORDERED: POTASSIUM CHLORIDE 10 MEQ SR TABLET PO ONE (07:00)
[2020-11-09] MEDS: OMEPRAZOLE 20 MG CAP PO SCH (08:22)
[2020-11-09] MEDS: CEFTAROLINE FOSAMIL 600 MG in D5W MINI-BAG PLUS 50 ML IV SCH (08:22)
[2020-11-09] MEDS: MAGNESIUM OXIDE 400MG TAB (MAG-OX) PO SCH ×2 (08:22→21:18)
[2020-11-09] MEDS: APIXABAN 2.5 MG TAB (ELIQUIS) PO SCH ×2 (08:23→21:18)
[2020-11-09] MEDS: VITAMIN D 1,000 INTERNATIONAL UNITS TABLET PO SCH (08:23)
[2020-11-09] MEDS: ATORVASTATIN 20 MG TAB PO SCH (08:23)
[2020-11-09] MEDS: levETIRAcetam 250MG TABLET (KEPPRA) PO SCH ×2 (08:23→21:18)
[2020-11-09] MEDS: ASPIRIN 81MG ENTERIC TABLET PO SCH (08:23)
[2020-11-09] MEDS: valACYclovir HCL 500 MG TAB PO SCH (08:23)
[2020-11-09] MEDS: GABAPENTIN 100 MG CAP PO SCH ×2 (08:23→21:18)
[2020-11-09] MEDS: allopurinoL 100 MG TAB PO SCH (08:23)
[2020-11-09] MEDS: TRIAMCINOLONE ACET 0.1% CREAM 80 GM TOP SCH ×2 (08:24→21:18)
[2020-11-09] MEDS ORDERED: METOPROLOL SUCC *XL* 25MG TAB (TopROL *XL*) PO SCH (09:00)
--- NOTE | 2020-11-09 09:12 | IPNPDOC ---
Text Note Date of Service The patient was seen on 11/09/20. NOTE Subjective: Patient is an 80-year-old male who presented to the ER via ambulance for confusion at home. Patient reports that he lives alone and his brother works at [employer]. Patient reported that he felt cooped up and called the ambulance for further assistance. Patient reported that he did feel little confused, however upon arrival to emergency room, reports that he feels normal. Patient reported that he is having right foot pain after he banged it into a steel plate. Patient was admitted to the hospital service for further evaluation and treatment. Orthopedic surgery was called on consultation. Patient was seen and examined at the bedside. Patient is talking loudly while approaching the room and seems to be having a conversation with the wall. He is talking about different things and is very tangential. Upon arrival to the room, patient is able to answer my questions appropriately. Denies any significant pain, shortness of breath, cough, nausea, vomiting or diarrhea. Objective: Vitals (See below) General: Patient is sitting up in bed, appears to be comfortable, very conversive awake and alert, oriented x2 (not to place) HEENT: NC, AT CVS: +S1S2 Lungs: Auscultation is fair bilaterally without any auscultated evidence of wheezing, crackles or rhonchi Abdomen: Abdomen remains soft without any distention or tenderness Extremities: 1+ pitting edema bilaterally still persists , - Calf tenderness Imaging: CXR 11/07: No evidence of active pulmonary disease. Foot XR 11/07: 1. There is an acute intra-articular fracture of the 4th and 5th proximal phalanges which extend to the 4th and 5th MTPs. 2. Healed traumatic change in arthritic changes described. Vascular US 11/07: No evidence of deep vein thrombosis. Assessment and plan: R foot pain - likely 2/2 acute fracture; less likely 2/2 infection - Patient reports that he ran his right foot into a steel plate - Minimal R foot tenderness - Imaging noted above - Procalcitonin negative - Blood cultures 11/07: No growth at 48 hours - c/w Ceftaroline (re: MRSA coverage) - Day #3; will discontinue antibiotics within 24 hours - Orthopedic surgery; Dr. Kingsley on consultation; recommend stiff-sole cast shoe and weightbearing as tolerated - c/w PT and OT Hypotension - BP currently is normotensive - Patient of profound hypotension after receiving blood pressure medications - Lactic acid has been normal - s/p Metoprolol and Amlodipine Acute on Chronic Diastolic CHF - Physical still reveals some evidence of lower extremity edema - Elevated BNP - CXR does not reveal any significant congestion - ECHO Pending - Strict ins/outs, daily weight, fluid restriction, salt restriction - Patient had received a dose of diuresis yesterday, however, became hypotensive and instead was given IV fluid hydration - Will continue to hold off on IV diuretics Paroxysmal A fib - Will hold rate control with metoprolol - re: hypotension - c/w full anticoagulation with Eliquis CKD3 - Cr baseline of 1.5 - Creatinine at baseline - s/p IV fluids 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) - c/w Gabapentin / Valacyclovir Bilateral venous stasis ulcers / Sacral pressure ulcer Depression - c/w Doxepin Dysphagia - Prior recommendation for mechanical soft / thin liquids - Speech therapy evaluation today Legally blind GERD - c/w Omeprazole DVT prophylaxis - c/w full anticoagulation with Eliquis Disposition: - Awaiting clinical improvement - Psychiatry consultation Elizabeth DAMIAN I+O Elizabeth DAMIAN I+O Laboratory Tests 11/09/20 04:55 Vital Signs Date Time Temp Pulse Resp B/P (MAP) Pulse Ox O2 Delivery O2 Flow Rate FiO2 11/09/20 06:00 71 96/50 (65) 11/09/20 04:00 100.1 18 94 Room Air 11/08/20 04:00 2.0 I&O- Last 24 Hours up to 6 AM 11/09/20 06:00 Intake Total 1700 ml Output Total 100 ml Balance 1600 ml TRAE OLIVEIRA MD Nov 09, 2020 09:12
[2020-11-09 11:26] LABS: CK-MB VALUE MASS 1.8 NG/ML (<3.6); CPK CREATINE PHOSPHOKINASE 201 U/L (39-308)
[2020-11-09 11:27] LABS: TROPONIN I < 0.02 NG/ML (< 0.10)
[2020-11-09] MEDS ORDERED: MIDODRINE 2.5 MG TAB PO SCH ×2 (16:00)
[2020-11-09] MEDS: MONTELUKAST 10 MG TAB PO SCH (21:18)
[2020-11-10] VITALS (8 sets, daily range): BP systolic 94–132; BP diastolic 54–64
[2020-11-10] MEDS: ACETAMINOPHEN TAB 650MG DOSE (2X325MG) PO PRN ×2 (00:19→04:44)
[2020-11-10 05:04] LABS: HEMATOCRIT 31.5 % (42.0-52.0); HEMOGLOBIN 9.7 g/dl (13.5-17.5); MEAN CORPUSCULAR HEMOGLOBIN 26.1 pg (27.0-33.0); MEAN CORPUSCULAR HGB CONC 30.8 g/dl (32.0-36.5); MEAN CORPUSCULAR VOLUME 84.7 fl (80.0-96.0); PLATELET COUNT, AUTOMATED 195 10^3/uL (150-450); RED BLOOD COUNT 3.72 10^6/uL (4.30-6.10); WHITE BLOOD COUNT 5.9 10^3/uL (4.0-10.0)
[2020-11-10 05:32] LABS: ALBUMIN 2.4 GM/DL (3.2-5.2); BILIRUBIN,TOTAL 0.4 MG/DL (0.2-1.0); CALCIUM LEVEL 7.7 MG/DL (8.8-10.2); CREATININE FOR GFR 1.62 MG/DL (0.70-1.30); GLOMERULAR FILTRATION RATE 43.9 (>35); MAGNESIUM LEVEL 2.1 MG/DL (1.8-2.4); TOTAL PROTEIN 5.1 GM/DL (6.4-8.2)
[2020-11-10 06:09] LABS: EOSINOPHILS 23 % (0-3); LYMPHOCYTES 4 % (16-44); MONOCYTES 3 % (0-5); NEUTROPHILS 69 % (28-66)
[2020-11-10 06:10] LABS: OVALOCYTES 1+; PLATELET ESTIMATE NORMAL (NORMAL); POIKILOCYTOSIS 1+; TOXIC VACUOLATION 1+
[2020-11-10 06:13] LABS: DOHLE BODIES 1+
[2020-11-10] MEDS: GABAPENTIN 100 MG CAP PO SCH ×2 (08:38→21:17)
[2020-11-10] MEDS: APIXABAN 2.5 MG TAB (ELIQUIS) PO SCH ×2 (08:38→21:16)
[2020-11-10] MEDS: allopurinoL 100 MG TAB PO SCH (08:38)
[2020-11-10] MEDS: ASPIRIN 81MG ENTERIC TABLET PO SCH (08:38)
[2020-11-10] MEDS: valACYclovir HCL 500 MG TAB PO SCH (08:38)
[2020-11-10] MEDS: VITAMIN D 1,000 INTERNATIONAL UNITS TABLET PO SCH (08:39)
[2020-11-10] MEDS: OMEPRAZOLE 20 MG CAP PO SCH (08:39)
[2020-11-10] MEDS: ATORVASTATIN 20 MG TAB PO SCH (08:39)
[2020-11-10] MEDS: MAGNESIUM OXIDE 400MG TAB (MAG-OX) PO SCH ×2 (08:39→21:17)
[2020-11-10] MEDS: levETIRAcetam 250MG TABLET (KEPPRA) PO SCH ×2 (08:39→21:17)
[2020-11-10] MEDS: TRIAMCINOLONE ACET 0.1% CREAM 80 GM TOP SCH ×2 (08:40→21:22)
--- NOTE | 2020-11-10 09:36 | IPNPDOC ---
Text Note Date of Service The patient was seen on 11/10/20. NOTE Subjective: Patient is an 80-year-old male who presented to the ER via ambulance for confusion at home. Patient reports that he lives alone and his brother works at [email or web address]. Patient reported that he felt cooped up and called the ambulance for further assistance. Patient reported that he did feel little confused, however upon arrival to emergency room, reports that he feels normal. Patient reported that he is having right foot pain after he banged it into a steel plate. Patient was admitted to the hospital service for further evaluation and treatment. Orthopedic surgery was called on consultation. Patient was seen and examined at the bedside. Patient is sitting up in chair, appears to be comfortable, denies any pain. Denies any foot pain. Has not experience any nausea, vomiting, abdominal pain or diarrhea. Objective: Vitals (See below) General: Patient sitting in chair, appears to be comfortable, is awake, alert HEENT: NC, AT CVS: +S1S2 Lungs: Air entry bilaterally is fair. There is no auscultated rhonchi, crackles or wheezing Abdomen: Soft, nondistended, nontender Extremities: 1+ pitting edema Imaging: CXR 11/07: No evidence of active pulmonary disease. Foot XR 11/07: 1. There is an acute intra-articular fracture of the 4th and 5th proximal phalanges which extend to the 4th and 5th MTPs. 2. Healed traumatic change in arthritic changes described. Vascular US 11/07: No evidence of deep vein thrombosis. Assessment and plan: Mild R foot pain - likely 2/2 acute fracture; unlikely likely 2/2 infection - Patient reports that he ran his right foot into a steel plate - Minimal R foot tenderness - Imaging noted above - Procalcitonin negative - Blood cultures 11/07: No growth at 72 hours - s/p Ceftaroline - no evidence of infection - Orthopedic surgery; Dr. Kingsley on consultation; recommend stiff-sole cast shoe and weightbearing as tolerated - c/w PT and OT Hypotension - BP is on lower limits of normal; the patient remains asymptomatic - Patient of profound hypotension after receiving blood pressure medications - Lactic acid has been normal - s/p Metoprolol and Amlodipine - s/p Doxepine (re: orthostatic hypotension) - Will start Midodrine Acute on Chronic Diastolic CHF - Physical still reveals some evidence of lower extremity edema - Elevated BNP - CXR does not reveal any significant congestion - ECHO ejection fraction 67%, grade 1 diastolic dysfunction, mildly elevated IVC pressures. 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) - c/w Gabapentin / Valacyclovir Bilateral venous stasis ulcers / Sacral pressure ulcer Depression - s/p Doxepin (re: orthostatic hypotension) - Will need to follow up with Psychiatry Dysphagia - Prior recommendation for mechanical soft / thin liquids - Speech therapy evaluation pending Legally blind GERD - c/w Omeprazole DVT prophylaxis - c/w full anticoagulation with Eliquis Disposition: - Awaiting clinical improvement VS,Fishbone, I+O VS, Fishbone, I+O Laboratory Tests 11/10/20 04:49 Vital Signs Date Time Temp Pulse Resp B/P (MAP) Pulse Ox O2 Delivery O2 Flow Rate FiO2 11/10/20 07:30 98.2 75 18 103/59 (74) 96 Room Air 11/08/20 04:00 2.0 I&O- Last 24 Hours up to 6 AM 11/10/20 06:00 Intake Total 1010 ml Output Total 575 ml Balance 435 ml TRAE OLIVEIRA MD Nov 10, 2020 09:36
[2020-11-10] MEDS: MIDODRINE 2.5 MG TAB PO SCH ×3 (09:52→16:52)
--- NOTE | 2020-11-10 11:03 | ECGEPIP ---
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
[2020-11-10] MEDS: POLYVINYL ALCOHOL OPHTH SOLN 15 ML(LIQUITEARS) OU PRN ×2 (15:00→21:17)
[2020-11-10] MEDS: MONTELUKAST 10 MG TAB PO SCH (21:16)
[2020-11-11 06:00] VITALS: BP 135/65
[2020-11-11 07:03] LABS: HEMATOCRIT 30.2 % (42.0-52.0); HEMOGLOBIN 9.4 g/dl (13.5-17.5); MEAN CORPUSCULAR HGB CONC 31.1 g/dl (32.0-36.5); MEAN CORPUSCULAR VOLUME 83.7 fl (80.0-96.0); PLATELET COUNT, AUTOMATED 204 10^3/uL (150-450); RED BLOOD COUNT 3.61 10^6/uL (4.30-6.10); WHITE BLOOD COUNT 4.1 10^3/uL (4.0-10.0)
[2020-11-11 07:32] LABS: ALBUMIN 2.4 GM/DL (3.2-5.2); BILIRUBIN,TOTAL 0.3 MG/DL (0.2-1.0); CREATININE FOR GFR 1.25 MG/DL (0.70-1.30); GLOMERULAR FILTRATION RATE 59.2 (>35); MAGNESIUM LEVEL 2.2 MG/DL (1.8-2.4); TOTAL PROTEIN 4.7 GM/DL (6.4-8.2)
[2020-11-11] MEDS: allopurinoL 100 MG TAB PO SCH (08:20)
[2020-11-11] MEDS: levETIRAcetam 250MG TABLET (KEPPRA) PO SCH (08:21)
[2020-11-11] MEDS: APIXABAN 2.5 MG TAB (ELIQUIS) PO SCH (08:21)
[2020-11-11] MEDS: GABAPENTIN 100 MG CAP PO SCH (08:21)
[2020-11-11] MEDS: OMEPRAZOLE 20 MG CAP PO SCH (08:21)
[2020-11-11] MEDS: ASPIRIN 81MG ENTERIC TABLET PO SCH (08:21)
[2020-11-11] MEDS: valACYclovir HCL 500 MG TAB PO SCH (08:21)
[2020-11-11] MEDS: VITAMIN D 1,000 INTERNATIONAL UNITS TABLET PO SCH (08:21)
[2020-11-11] MEDS: ATORVASTATIN 20 MG TAB PO SCH (08:21)
[2020-11-11] MEDS: MAGNESIUM OXIDE 400MG TAB (MAG-OX) PO SCH (08:21)
[2020-11-11] MEDS: MIDODRINE 2.5 MG TAB PO SCH ×3 (08:22→16:46)
[2020-11-11] MEDS: TRIAMCINOLONE ACET 0.1% CREAM 80 GM TOP SCH (08:22)
[2020-11-11 08:42] LABS: EOSINOPHILS 23 % (0-3); LYMPHOCYTES 15 % (16-44); MONOCYTES 1 % (0-5); NEUTROPHILS 58 % (28-66)
[2020-11-11 08:44] LABS: ANISOCYTOSIS 1+; BURR CELLS 1+; HYPOCHROMASIA 2+; PLATELET ESTIMATE NORMAL (NORMAL); POIKILOCYTOSIS 2+
--- NOTE | 2020-11-11 09:02 | IPNPDOC ---
Text Note Date of Service The patient was seen on 11/11/20. VS,Johnbone, I+O VS, Fishbone, I+O Laboratory Tests 11/11/20 05:54 Vital Signs Date Time Temp Pulse Resp B/P (MAP) Pulse Ox O2 Delivery O2 Flow Rate FiO2 11/11/20 06:00 97.2 67 16 135/65 (88) 97 Room Air 11/08/20 04:00 2.0 I&O- Last 24 Hours up to 6 AM 11/11/20 06:00 Intake Total 680 ml Output Total 700 ml Balance -20 ml TRAE OLIVEIRA MD Nov 11, 2020 09:02
--- NOTE | 2020-11-11 09:23 | ECHO ---
DATE OF PROCEDURE: 11/08/2020 Age: 80 years Gender: Male Height: 68 inches Weight: 227 pounds Body Surface Area: 2.16 m2. Inpatient: ICU, room 3205. REFERRING PHYSICIAN: TRAE OLIVEIRA MD INDICATION: CHF. MEASUREMENTS: 2D Measurements: RV 3.6 cm LV 4.0 cm Septum 1.2 cm Posterior wall 1.2 cm Aortic Root 3.1 cm LA - 4.1 cm LVEF 67% Doppler Measurements: AV - 1.62 m/s LVOT - 0.9 m/s LVOT diameter 2.0 cm MV-E 85, A 96, E/A ratio 0.9 Early mitral deceleration time 259 ms E prime medial 6.3, A prime medial 5.7, E prime lateral 6.2 Average E/E prime ratio 13.6/PCWP 18.8 mmHg PV - 0.8 m/s Pulmonary artery acceleration time 111 ms RVSP 34-39 mmHg IVC 2.1 cm COMMENTS: Normal sinus rhythm without intraventricular conduction disturbance. Technically challenging study in light of the patient's body habitus, but diagnostic useful information was still obtained. M-Mode and Two Dimensional Echocardiography was performed with pulse, continuous wave, color flow, and tissue Doppler studies. Borderline concentric left ventricular hypertrophy with normal wall motion. Mildly dilated left atrium with grade 1 LV diastolic dysfunction and borderline increased estimated mean left atrial pressure. Normal right heart chamber sizes and motion with Doppler evidence of mild and possibly moderate pulmonary hypertension. Mildly dilated inferior vena cava (IVC) with reduced respiratory collapse suggestive of an elevated central venous pressure/right heart failure. Normal aortic dimensions. Moderate aortic valvular sclerosis without stenosis or insufficiency. Moderate mitral annular calcification without inflow tract obstruction and only very mild insufficiency. Normal-appearing tricuspid valve with very mild insufficiency. No apparent intracardiac mass or pericardial effusion. MTDD
--- NOTE | 2020-11-11 12:05 | DS.PDOC ---
Discharge Summary General Date of Admission Nov 07, 2020 at 09:48 Date of Discharge 11/11/2020 Discharge Summary PROCEDURES PERFORMED DURING STAY: [None]. 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 Patient reports that he lives alone and his brother works at [employer] Patient reported that he felt cooped up and called the ambulance for further assistance. Patient reported that he did feel little confused, however upon arrival to emergency room, reports that he feels normal. Patient reported that he is having right foot pain after he banged it into a [employer] plate. Patient was admitted to the hospital service for further evaluation and treatment. Orthopedic surgery was called on consultation. HOSPITAL COURSE: Mild R foot pain - likely 2/2 acute fracture; unlikely likely 2/2 infection - Patient reports that he sustained trauma to his right foot after he had banged into an object - Right foot with boot in place - Imaging noted above - Procalcitonin negative - Blood cultures 11/07: No growth at 72 hours - s/p Ceftaroline - no evidence of infection - Orthopedic surgery; Dr. Kingsley on consultation; recommend stiff-sole cast shoe and weightbearing as tolerated - c/w PT and OT; patient will be transitioned to acute rehabilitation unit for continued therapy Hypotension - BP appears to be normotensive after starting midodrine - Patient of profound hypotension after receiving blood pressure medications - Lactic acid has been normal - s/p Metoprolol and Amlodipine - s/p Doxepin (re: orthostatic hypotension) - c/w Midodrine Acute on Chronic Diastolic CHF - Physical still reveals some evidence of lower extremity edema; however, this might be a chronic finding - Elevated BNP - CXR does not reveal any significant congestion - ECHO ejection fraction 67%, grade 1 diastolic dysfunction, mildly elevated IVC pressures. 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 ALLERGIES: Please see below. PHYSICAL EXAMINATION ON DISCHARGE: Vitals (See below) General: Patient lying in bed, appears comfortable, not in any acute distress, awake and alert HEENT: NC, AT CVS: +S1S2 Lungs: There appears to be fair air entry bilaterally without any auscultated evidence of crackles, wheezing, rhonchi Abdomen: Abdomen remains soft without any appreciated tenderness or distention Extremities: Lower extremities reveal trace tp 1+ pitting edema LABORATORY DATA: Please see below. IMAGING: CXR 11/07: No evidence of active pulmonary disease. Foot XR 11/07: 1. There is an acute intra-articular fracture of the 4th and 5th proximal phalanges which extend to the 4th and 5th MTPs. 2. Healed traumatic change in arthritic changes described. Vascular US 11/07: No evidence of deep vein thrombosis. ACTIVITY: [As tolerated]. DISCHARGE PLAN: Follow-up with primary care provider and orthopedic surgery within the next 7 days Remain compliant with treatment plan and medications Return to the ER if you experience any problems DISPOSITION: Acute rehabilitation unit DISCHARGE CONDITION: [Stable]. TIME SPENT ON DISCHARGE: 35 minutes. Vital Signs/I&Os Vital Signs Date Time Temp Pulse Resp B/P (MAP) Pulse Ox O2 Delivery O2 Flow Rate FiO2 11/11/20 06:00 97.2 67 16 135/65 (88) 97 Room Air 11/08/20 04:00 2.0 I&O- Last 24 Hours up to 6 AM 11/11/20 06:00 Intake Total 680 ml Output Total 700 ml Balance -20 ml Laboratory Data Labs 24H Laboratory Tests 2 11/11/20 05:54: Neutrophils (%) (Auto) , Eosinophils (%) (Auto) , Nucleated Red Blood Cells % (auto) 0.0, Neutrophils 58, Band Neutrophils 3, Lymphocytes (Manual) 15L, Monocytes (Manual) 1, Eosinophils (Manual) 23H, Hypochromasia 2+, Poikilocytosis 2+, Anisocytosis 1+, [place] Cells 1+, Acanthocytes 1+, Platelet Estimate NORMAL, Anion Gap 4L, Glomerular Filtration Rate 59.2, Calcium Level 8.0L, Magnesium Level 2.2, Total Bilirubin 0.3, Aspartate Amino Transf (AST/SGOT) 9, Alanine Aminotransferase (ALT/SGPT) 12, Alkaline Phosphatase 132H, Total Protein 4.7L, Albumin 2.4L, Albumin/Globulin Ratio 1.0 CBC/BMP Laboratory Tests 11/11/20 05:54 Microbiology Microbiology 11/07/20 Blood Culture - Preliminary, Resulted No Growth after 72 hours. All specime... 11/07/20 Respiratory Virus Panel (PCR) (CHANTAL) - Final, Complete 11/07/20 Blood Culture - Preliminary, Resulted No Growth after 72 hours. All specime... Discharge Medications Scheduled Allopurinol (Allopurinol) 100 Mg Tablet, 100 MG PO DAILY, (Reported) Amlodipine Besylate (Amlodipine Besylate) 5 Mg Tablet, 5 MG PO DAILY, (Reported) Apixaban (Eliquis) 2.5 Mg Tablet, 2.5 MG PO BID, (Reported) Aspirin (Aspirin EC) 81 Mg Tablet.dr, 81 MG PO DAILY, (Reported) Atorvastatin Calcium (Atorvastatin Calcium) 80 Mg Tablet, 80 MG PO DAILY, (Reported) Cholecalciferol (Vitamin D3) (Vitamin D3) 50 Mcg Tablet, 50 MCG PO DAILY, (Reported) Doxepin HCl (Doxepin HCl) 10 Mg Capsule, 10 MG PO QHS, (Reported) Gabapentin (Gabapentin) 100 Mg Capsule, 100 MG PO BID, (Reported) Levetiracetam (Keppra) 500 Mg Tablet, 500 MG PO BID, (Reported) Magnesium Oxide (Magnesium Oxide) 400 Mg Tablet, 400 MG PO BID, (Reported) Metoprolol Succinate (Metoprolol Succinate) 50 Mg Tab.er.24h, 50 MG PO DAILY, (Reported) Montelukast Sodium (Montelukast Sodium) 10 Mg Tablet, 10 MG PO QHS, (Reported) Omeprazole (Omeprazole) 40 Mg Capsule.dr, 40 MG PO DAILY, (Reported) Triamcinolone Acet (Triamcinolone Acetonide 0.1% Crm) 80 Gm Cream..g., 1 DOSE TOP BID, (Reported) APPLIES TO RIGHT LEG Valacyclovir HCl (Valacyclovir) 500 Mg Tablet, 500 MG PO DAILY, (Reported) Scheduled PRN Acetaminophen (Acetaminophen) 500 Mg Tablet, 500 MG PO Q8H PRN for PAIN, (Reported) Halobetasol Propionate (Halobetasol Propionate) 50 Gm Cream..g., 1 DOSE TOP BID PRN for RASH, (Reported) APPLIES TO TRUNK AND EXTERMITIES Miscellaneous Medications [Comments] , (Reported) EXTERNAL MED HISTORY USED TO COMPILE MED LIST Allergies Coded Allergies: ciclopirox (Verified Allergy, Intermediate, rash, hives, 06/12/19) TRAE OLIVEIRA MD Nov 11, 2020 12:05
[2020-11-11] MEDS ORDERED: MIDO2.5T PO (12:06)
== END 2020-11-11 17:41 | DRG 292 ==
LOC: M ED 01:20 → M ED INP 09:48 → ENRESERV 13:12 → M ICU 21:20 → M MSPAV 11-10 09:43
PROVIDERS: ADMIT Internal Medicine; ATTEND Internal Medicine
DX: I13.0 Hypertensive heart and chronic kidney disease with heart failure and stage 1 through stage 4 chronic kidney disease, or unspecified chronic kidney disease (principal); I50.32 Chronic diastolic (congestive) heart failure; B02.31 Zoster conjunctivitis; C91.90 Lymphoid leukemia, unspecified not having achieved remission; S92.511A Displaced fracture of proximal phalanx of right lesser toe(s), initial encounter for closed fracture; W22.8XXA Striking against or struck by other objects, initial encounter; Y92.9 Unspecified place or not applicable; Y99.8 Other external cause status; I48.0 Paroxysmal atrial fibrillation; Z66 Do not resuscitate; N18.30 Chronic kidney disease, stage 3 unspecified; I65.21 Occlusion and stenosis of right carotid artery; F03.90 Unspecified dementia, unspecified severity, without behavioral disturbance, psychotic disturbance, mood disturbance, and anxiety; G40.909 Epilepsy, unspecified, not intractable, without status epilepticus; M48.02 Spinal stenosis, cervical region; R13.10 Dysphagia, unspecified; L89.159 Pressure ulcer of sacral region, unspecified stage; H54.8 Legal blindness, as defined in USA; I95.9 Hypotension, unspecified; I87.2 Venous insufficiency (chronic) (peripheral); Z98.1 Arthrodesis status; Z86.73 Personal history of transient ischemic attack (TIA), and cerebral infarction without residual deficits; Z90.49 Acquired absence of other specified parts of digestive tract; Z96.653 Presence of artificial knee joint, bilateral; Z85.828 Personal history of other malignant neoplasm of skin; K21.9 Gastro-esophageal reflux disease without esophagitis; Z79.01 Long term (current) use of anticoagulants; Z79.82 Long term (current) use of aspirin; Z79.899 Other long term (current) drug therapy; Z88.8 Allergy status to other drugs, medicaments and biological substances

== ENCOUNTER 2020-11-11 12:19 | Inpatient (IN) | payer MEDICARE ==
[~2020-11-11] VITALS: Ht 172.7 cm; Wt 81.6 kg
[~2020-11-11 12:19] MED LIST changes: +COMMENTS; +D32000TA PO; +MIDO2.5T PO; +OMEP-221 PO
[2020-11-11] MEDS ORDERED: MIRALAX *UNIT DOSE* 17GM PACKET PO PRN (19:00)
[2020-11-11] MEDS ORDERED: BISACODYL 10 MG SUPP PR PRN (19:00)
[2020-11-11 20:20] VITALS: BP 150/76
[2020-11-11] MEDS: TRIAMCINOLONE ACET 0.1% OINTMENT 15 GM TOP SCH (21:00)
[2020-11-11] MEDS: MAGNESIUM OXIDE 400MG TAB (MAG-OX) PO SCH (21:34)
[2020-11-11] MEDS: GABAPENTIN 100 MG CAP PO SCH (21:34)
[2020-11-11] MEDS: DOCUSATE SODIUM 100MG CAPSULE PO SCH (21:34)
[2020-11-11] MEDS: APIXABAN 2.5 MG TAB (ELIQUIS) PO SCH (21:34)
[2020-11-11] MEDS: POLYVINYL ALCOHOL OPHTH SOLN 15 ML(LIQUITEARS) OU SCH (21:34)
[2020-11-11] MEDS: SENNA 8.6 MG TAB (SENOKOT) PO SCH (21:34)
[2020-11-11] MEDS: levETIRAcetam 250MG TABLET (KEPPRA) PO SCH (21:34)
[2020-11-11] MEDS: REMEDY PHYTOPLEX Z-GUARD PASTE 113GM TUBE (FROM STOREROOM PRODUCT) TOP SCH (21:36)
[2020-11-12 06:11] VITALS: BP 150/70
[2020-11-12 07:10] LABS: HEMATOCRIT 30.4 % (42.0-52.0); HEMOGLOBIN 9.8 g/dl (13.5-17.5); MEAN CORPUSCULAR HEMOGLOBIN 26.7 pg (27.0-33.0); MEAN CORPUSCULAR HGB CONC 32.2 g/dl (32.0-36.5); MEAN CORPUSCULAR VOLUME 82.8 fl (80.0-96.0); PLATELET COUNT, AUTOMATED 207 10^3/uL (150-450); RED BLOOD COUNT 3.67 10^6/uL (4.30-6.10); WHITE BLOOD COUNT 4.8 10^3/uL (4.0-10.0)
[2020-11-12 07:41] LABS: ALBUMIN 2.7 GM/DL (3.2-5.2); ALT/SGPT 23 U/L (12-78); BILIRUBIN,TOTAL 0.4 MG/DL (0.2-1.0); BLOOD UREA NITROGEN 16 MG/DL (7-18); CALCIUM LEVEL 8.9 MG/DL (8.8-10.2); CARBON DIOXIDE LEVEL 30 MEQ/L (21-32); CHLORIDE LEVEL 106 MEQ/L (98-107); CREATININE FOR GFR 1.07 MG/DL (0.70-1.30); GLOMERULAR FILTRATION RATE > 60.0 (>35); GLUCOSE, FASTING 95 MG/DL (70-100); POTASSIUM SERUM 3.7 MEQ/L (3.5-5.1); SODIUM LEVEL 142 MEQ/L (136-145)
--- NOTE | 2020-11-12 08:31 | HPEPDOC ---
History Professor Note DATE OF ADMISSION: 11-11-20 DATE OF SERVICE: 11-12-20 TIME OF ADMISSION: Please refer to physician's admission order. 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 Foot Xray revealed, acute intra- articular fracture of the 4th and 5th proximal phalanges which extend to the 4th and 5th MTPs". He was evaluated by orthopedics who recommended WBAT with a stiff-sole cast shoe. He had acute on chronic diastolic CHF exacerbation with ECHO showing grade 1 diastolic dysfunction , episode of hypotension for which his blood pressure medication was discontinued and he was started on midodrine. He had mobility and ADL impairments and was deemed medically appropriate for discharge to ARU on 11-11-20. REVIEW OF SYSTEMS: The following is a completed review of systems and has been reviewed. Review of systems otherwise unremarkable. PAIN: Patient self reports no pain EYES:+low vision EARS, NOSE, & THROAT: No throat pain, or dysphagia, or rhinorrhea CARDIOVASCULAR: Denies chest pain or palpitations PULMONARY: Denies shortness of breath GASTROINTESTINAL: Denies constipation/diarrhea GENITOURINARY: denies dysuria MUSCULOSKELETAL: right foot fracture NEUROLOGICAL:denies paresthesias HEMATOLOGICAL:denies easy bruising SKIN: denies rash PSYCHIATRIC: Unremarkable All other review of systems found to be negative. PAST MEDICAL HISTORY: as per HPI PAST SURGICAL HISTORY: port, basal cell skin cancer removal, testicular resection, appendectomy, ACDF, left breast benign tumor removal, carpal tunnel surgery ALLERGIES: Please see below. MEDICATIONS: Please see below. FAMILY HISTORY: lung and skin cancer, cardiac SOCIAL HISTORY:former smoker, no etoh/illicit drugs DIET: mechanical soft PHYSICAL EXAMINATION: VITAL SIGNS: Please see below. GENERAL: Pleasant and cooperative. No acute distress. HEENT: Extraocular movements grossly intact. CARDIOVASCULAR: irregular rate and rhythm. No murmurs, rubs, or gallops LUNGS: Clear to auscultation bilaterally. No wheezes. No rhonchi ABDOMEN: Soft, nontender, nondistended. Positive bowel sounds. Normal active bowel sounds NEUROLOGICAL: Alert and oriented x3 Cranial nerves II through XII grossly intact. Sensation grossly intact EXTREMITIES: 5\\5 strength bilateral upper extremities. 4\\5 strength right lower extremity. 5/5 strength in left lower extremity. +right foot swelling, dried blood between toes bilat LE edema (negative homans) SKIN: no sacral wound noted LABORATORY DATA: Please see below. IMAGING:Imaging documentation personally reviewed by record FUNCTIONAL STATUS: Premorbid: Independent with all activities of daily life as well as mobility On Admission: Min assist bed mobility, functional transfers, dressing, toileting, ambulating GOALS: Mod-I bed mobility, functional transfers, dressing, toileting, ambulating ASSESSMENT:80-year-old M with past medical history of Afib, diastolic CHF, epilepsy who presents status post injury to right foot with fracture PLAN: 1. Rehab-PT/OT advance mobility and ADLs, strengthen/stretch/maintain ROM all 4 limbs -STUDIO DATA ANALYST for cog and swallow 2. 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 Cardiac-chronic diastolic CHF, c/u fluid restriction, daily weights, consider diuretic if BPs allow -hypotension, off home bP meds, midodrine with holding parameters, orthostatics -Afib on eliquis -HLD-c/u statin -medicine consulted to assist in overall management 4. Resp- monitor for infection, incentive spirometry 5. Onc- hx of CLL, f/u oncology outpatient 6. Renal- CKD, monitor COLLEEN 7. GI ppx- protonix 8. DVT ppx- eliquis 9. Orhto- right 4/5th proximal intraarticular phalangeal fractures with extensi on into metatarsal- WBAT with stiff-sole cast shoe, f/u ortho outpatient 10. PAin -tylenol 11. Psych- s/p Doxepin fro depression due to hypotension monitor and consider alternative medication 12. Dispo- TBD POST ADMISSION PHYSICIAN EVALUATION: Medical and functional status: Description of medical status, medical assessment: As above. Rehabilitation diagnosis and current and prior cold morbid medical conditions as above. Risk of complications and plans to mitigate them as above. Description of functional status current status is as above. Prior status as above. Status compared to preadmission: There are no clinically significant differences between the patient's current status and the information described on the preadmission screening document. Treatment plan anticipated: Treatment plan is as described above. Required disciplines including physical therapy, occupational therapy, others as noted above. Intensity of services: 3 hours a day, 6 days a week. Special considerations: There are no specific special or safety considerations that would likely preclude immediate implementation of an intensive rehabilitation program or subsequently influence the plan of care. ATTESTATION: Considering all the information above, it is my best judgment that this patient requires intensive rehabilitation therapy as described above and an inpatient hospital environment due to the complexity of nursing, medical, and rehabilitation needs required by the patient. Furthermore, this patient can reasonably be expected to participate in an benefit from an inpatient josy abilitation stay with an interdisciplinary team approach to the delivery of rehabilitation care under the direction and supervision of rehabilitation physician. PROGNOSIS: good ESTIMATED LENGTH OF STAY:12-14 days. PROJECTED DISCHARGE DESTINATION: Home with family support and any durable medical equipment required to increase functional safety and mobility. TIME SPENT COUNSELING AND COORDINATING INITIAL CARE: Greater than 70 minutes. Vital Signs Vital Sign - Last 24 Hours 11/11/20 11/12/20 20:20 06:11 Temp 97.1 97.4 Pulse 71 70 Resp 18 18 B/P (MAP) 150/76 (100) 150/70 (96) Pulse Ox 97 97 O2 Delivery Room Air Room Air Laboratory Data CBC/BMP Laboratory Tests 11/12/20 06:40 Labs 24H Laboratory Tests 2 11/12/20 06:40: Neutrophils (%) (Auto) , Eosinophils (%) (Auto) , Nucleated Red Blood Cells % (auto) 0.0, Anion Gap 6L, Glomerular Filtration Rate > 60.0, Calcium Level 8.9, Total Bilirubin 0.4, Aspartate Amino Transf (AST/SGOT) 23, Alanine Aminotransferase (ALT/SGPT) 23, Alkaline Phosphatase 146H, Total Protein 5.0L, Albumin 2.7L, Albumin/Globulin Ratio 1.2 Home Medications Scheduled Allopurinol (Allopurinol) 100 Mg Tablet, 100 MG PO DAILY, (Reported) Apixaban (Eliquis) 2.5 Mg Tablet, 2.5 MG PO BID, (Reported) Aspirin (Aspirin EC) 81 Mg Tablet.dr, 81 MG PO DAILY, (Reported) Atorvastatin Calcium (Atorvastatin Calcium) 80 Mg Tablet, 80 MG PO DAILY, (Reported) Cholecalciferol (Vitamin D3) (Vitamin D3) 50 Mcg Tablet, 50 MCG PO DAILY, (Reported) Gabapentin (Gabapentin) 100 Mg Capsule, 100 MG PO BID, (Reported) Levetiracetam (Keppra) 500 Mg Tablet, 500 MG PO BID, (Reported) Magnesium Oxide (Magnesium Oxide) 400 Mg Tablet, 400 MG PO BID, (Reported) Midodrine HCl (Midodrine HCl) 2.5 Mg Tablet, 2.5 MG PO 08,12,16 Montelukast Sodium (Montelukast Sodium) 10 Mg Tablet, 10 MG PO QHS, (Reported) Omeprazole (Omeprazole) 40 Mg Capsule.dr, 40 MG PO DAILY, (Reported) Triamcinolone Acet (Triamcinolone Acetonide 0.1% Crm) 80 Gm Cream..g., 1 DOSE TOP BID, (Reported) APPLIES TO RIGHT LEG Valacyclovir HCl (Valacyclovir) 500 Mg Tablet, 500 MG PO DAILY, (Reported) Scheduled PRN Acetaminophen (Acetaminophen) 500 Mg Tablet, 500 MG PO Q8H PRN for PAIN, (Reported) Halobetasol Propionate (Halobetasol Propionate) 50 Gm Cream..g., 1 DOSE TOP BID PRN for RASH, (Reported) APPLIES TO TRUNK AND EXTERMITIES Allergies Coded Allergies: ciclopirox (Verified Allergy, Intermediate, rash, hives, 06/12/19) A-FIB/CHADSVASC A-FIB History Current/History of A-Fib/PAF?: Yes Current PO Anticoag Therapy: Yes RAMY KOCH MD Nov 12, 2020 08:31
[2020-11-12 08:40] LABS: ATYPICAL LYMPH 1 % (0-5); BASOPHILS 1 % (0-1); EOSINOPHILS 20 % (0-3); LYMPHOCYTES 37 % (16-44); MONOCYTES 2 % (0-5); MYELOCYTES 1 % (0-0); NEUTROPHILS 38 % (28-66); PLATELET ESTIMATE NORMAL (NORMAL)
[2020-11-12 08:41] LABS: ANISOCYTOSIS 1+; HYPOCHROMASIA 1+; MICROCYTOSIS 1+; POIKILOCYTOSIS 1+
[2020-11-12] MEDS: TRIAMCINOLONE ACET 0.1% OINTMENT 15 GM TOP SCH ×2 (09:00→21:36)
[2020-11-12] MEDS: allopurinoL 100 MG TAB PO SCH (09:57)
[2020-11-12] MEDS: MONTELUKAST 10 MG TAB PO SCH (09:57)
[2020-11-12] MEDS: MAGNESIUM OXIDE 400MG TAB (MAG-OX) PO SCH ×2 (09:57→21:37)
[2020-11-12] MEDS: VITAMIN D 1,000 INTERNATIONAL UNITS TABLET PO SCH (09:58)
[2020-11-12] MEDS: levETIRAcetam 250MG TABLET (KEPPRA) PO SCH ×2 (09:58→21:37)
[2020-11-12] MEDS: GABAPENTIN 100 MG CAP PO SCH (09:58)
[2020-11-12] MEDS: ASPIRIN 81MG ENTERIC TABLET PO SCH (09:58)
[2020-11-12] MEDS: APIXABAN 2.5 MG TAB (ELIQUIS) PO SCH ×2 (09:58→21:36)
[2020-11-12] MEDS: DOCUSATE SODIUM 100MG CAPSULE PO SCH ×2 (09:58→21:37)
[2020-11-12] MEDS: OMEPRAZOLE 20 MG CAP PO SCH (09:58)
[2020-11-12] MEDS: REMEDY PHYTOPLEX Z-GUARD PASTE 113GM TUBE (FROM STOREROOM PRODUCT) TOP SCH ×3 (10:01→21:38)
[2020-11-12] MEDS: valACYclovir HCL 500 MG TAB PO SCH (10:01)
[2020-11-12] MEDS: POLYVINYL ALCOHOL OPHTH SOLN 15 ML(LIQUITEARS) OU SCH ×3 (10:02→21:36)
[2020-11-12] MEDS: MIDODRINE 2.5 MG TAB PO SCH ×2 (10:04→12:46)
[2020-11-12 14:00] VITALS: BP 153/70
[2020-11-12] MEDS ORDERED: MIDODRINE 2.5 MG TAB PO PRN (14:00)
[2020-11-12 17:12] VITALS: BP 153/70
[2020-11-12] MEDS: FUROSEMIDE 20 MG TAB PO SCH (17:18)
--- NOTE | 2020-11-12 18:45 | IPNPDOC ---
Date Seen The patient was seen on 11/12/20. Progress Note SUBJECTIVE: 80-year-old male who presented to the ER via ambulance for confusion at home. Patient reports that he lives alone and his brother works at [employer]. Patient reported that he felt cooped up and called the ambulance for further assistance. Patient reported that he did feel little confused, however upon arrival to emergency room, reports that he feels normal. Patient reported that he is having right foot pain after he banged it into a steel plate. Patient was admitted to the hospital service for further evaluation and treatment. Orthopedic surgery was called on consultation. Patient was seen and examined at the bedside. Patient is sitting up in chair, appears to be comfortable, denies any pain. Denies any foot pain. Has not experience any nausea, vomiting, abdominal pain or diarrhea. OBJECTIVE PHYSICAL EXAMINATION: VITAL SIGNS: please see below General: NAD, comfortable HEENT: PERRLA, EOMI, sclerae clear Neck: supple, normal ROM, no JVD Respiratory: lungs CTAB, no wheeze, no rales, no crackles CVS: RRR, normal S1, S2, no murmurs Abdo: soft, no masses, no hepatosplenomegaly, BS+, no rebound tenderness Extremities: 1+ pitting edema bilaterally MSK: no joint deformities, normal ROM Neuro: no focal neuro deficits, moving all 4 extremities, CN2-12 intact. Strength 5/5 in all 4 extremities. No nystagmus. Psych: calm, cooperative, AAO x 3 LABORATORY DATA, IMAGING STUDIES, MICROBIOLOGY: Please see below. Echocardiogram: . DVT prophylaxis ordered?: full dose AC ASSESSMENT AND PLAN: Mild R foot pain - likely 2/2 acute fracture; unlikely likely 2/2 infection - Patient reports that he sustained trauma to his right foot after he had banged into an object - Right foot with boot in place - Imaging noted above - Procalcitonin negative - Blood cultures 11/07: No growth at 72 hours - s/p Ceftaroline - no evidence of infection - Orthopedic surgery; Dr. Kingsley on consultation; recommend stiff-sole cast shoe and weightbearing as tolerated - transitioned to acute rehabilitation unit for continued therapy Hypotension - BP appears to be normotensive after starting midodrine - Patient of profound hypotension after receiving blood pressure medications - Lactic acid has been normal - s/p Metoprolol and Amlodipine - s/p Doxepin (re: orthostatic hypotension) - c/w Midodrine Acute on Chronic Diastolic CHF - Physical still reveals some evidence of lower extremity edema; however, this might be a chronic finding - Elevated BNP - CXR does not reveal any significant congestion - ECHO ejection fraction 67%, grade 1 diastolic dysfunction, mildly elevated IVC pressures. 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) - c/w Gabapentin / Valacyclovir Bilateral venous stasis ulcers / Sacral pressure ulcer Depression - s/p Doxepin (re: orthostatic hypotension) - Will need to follow up with Psychiatry Dysphagia - Prior recommendation for mechanical soft / thin liquids - Speech therapy evaluation pending Legally blind GERD - c/w Omeprazole DVT prophylaxis - c/w full anticoagulation with Eliquis VS, I&O, 24H, Fishbone Vital Signs/I&O Vital Signs Date Time Temp Pulse Resp B/P (MAP) Pulse Ox O2 Delivery O2 Flow Rate FiO2 11/12/20 17:12 97.2 59 18 153/70 100 Room Air I&O- Last 24 Hours up to 6 AM 11/12/20 06:00 Intake Total 200 ml Balance 200 ml Laboratory Data 24H LABS Laboratory Tests 2 11/12/20 06:40: Neutrophils (%) (Auto) , Eosinophils (%) (Auto) , Nucleated Red Blood Cells % (auto) 0.0, Neutrophils 38, Lymphocytes (Manual) 37, Monocytes (Manual) 2, Eosinophils (Manual) 20H, Basophils (Manual) 1, Myelocytes 1H, Atypical Lymphocytes 1, Hypochromasia 1+, Poikilocytosis 1+, Anisocytosis 1+, Microcytosis 1+, Platelet Estimate NORMAL, Anion Gap 6L, Glomerular Filtration Rate > 60.0, Calcium Level 8.9, Total Bilirubin 0.4, Aspartate Amino Transf (AST/SGOT) 23, Alanine Aminotransferase (ALT/SGPT) 23, Alkaline Phosphatase 146H, Total Protein 5.0L, Albumin 2.7L, Albumin/Globulin Ratio 1.2 CBC/BMP Laboratory Tests 11/12/20 06:40 ARLIN ARREDONDO MD Nov 12, 2020 18:45
[2020-11-12 20:00] VITALS: BP 155/77
[2020-11-12 20:02] VITALS: BP 141/68
[2020-11-12 20:04] VITALS: BP 114/60
[2020-11-12] MEDS: MAGNESIUM SULFATE GRANULES(EPSOM SALT) 1LB TOP SCH (21:35)
[2020-11-12] MEDS: SENNA 8.6 MG TAB (SENOKOT) PO SCH (21:37)
[2020-11-12] MEDS: ATORVASTATIN 20 MG TAB PO SCH (21:37)
[2020-11-13] VITALS (8 sets, daily range): BP systolic 92–165; BP diastolic 50–75
[2020-11-13] MEDS: POLYVINYL ALCOHOL OPHTH SOLN 15 ML(LIQUITEARS) OU SCH ×3 (08:50→20:23)
[2020-11-13] MEDS: allopurinoL 100 MG TAB PO SCH (08:52)
[2020-11-13] MEDS: MAGNESIUM OXIDE 400MG TAB (MAG-OX) PO SCH ×2 (08:52→20:22)
[2020-11-13] MEDS: APIXABAN 2.5 MG TAB (ELIQUIS) PO SCH ×2 (08:52→20:22)
[2020-11-13] MEDS: OMEPRAZOLE 20 MG CAP PO SCH (08:53)
[2020-11-13] MEDS: DOCUSATE SODIUM 100MG CAPSULE PO SCH ×2 (08:53→20:23)
[2020-11-13] MEDS: VITAMIN D 1,000 INTERNATIONAL UNITS TABLET PO SCH (08:53)
[2020-11-13] MEDS: levETIRAcetam 250MG TABLET (KEPPRA) PO SCH ×2 (08:53→20:22)
[2020-11-13] MEDS: FUROSEMIDE 20 MG TAB PO SCH (08:53)
[2020-11-13] MEDS: ASPIRIN 81MG ENTERIC TABLET PO SCH (08:53)
[2020-11-13] MEDS: valACYclovir HCL 500 MG TAB PO SCH (08:53)
[2020-11-13] MEDS: MONTELUKAST 10 MG TAB PO SCH (08:53)
[2020-11-13] MEDS: TRIAMCINOLONE ACET 0.1% OINTMENT 15 GM TOP SCH ×2 (09:00→20:24)
[2020-11-13] MEDS: REMEDY PHYTOPLEX Z-GUARD PASTE 113GM TUBE (FROM STOREROOM PRODUCT) TOP SCH ×3 (09:01→20:26)
[2020-11-13 10:32] LABS: HEMATOCRIT 33.8 % (42.0-52.0); HEMOGLOBIN 10.4 g/dl (13.5-17.5); MEAN CORPUSCULAR HGB CONC 30.8 g/dl (32.0-36.5); MEAN CORPUSCULAR VOLUME 84.5 fl (80.0-96.0); PLATELET COUNT, AUTOMATED 245 10^3/uL (150-450); WHITE BLOOD COUNT 6.4 10^3/uL (4.0-10.0)
[2020-11-13 10:49] LABS: ANISOCYTOSIS 2+; ATYPICAL LYMPH 6 % (0-5); EOSINOPHILS 14 % (0-3); LYMPHOCYTES 40 % (16-44); MONOCYTES 10 % (0-5); NEUTROPHILS 25 % (28-66)
[2020-11-13 10:50] LABS: HYPOCHROMASIA 1+; PLATELET ESTIMATE NORMAL (NORMAL)
[2020-11-13 11:01] LABS: CALCIUM LEVEL 9.1 MG/DL (8.8-10.2); CREATININE FOR GFR 1.25 MG/DL (0.70-1.30); GLOMERULAR FILTRATION RATE 59.2 (>35); POTASSIUM SERUM 4.3 MEQ/L (3.5-5.1)
--- NOTE | 2020-11-13 12:02 | IPNPDOC ---
PM&R Progress Note DATE OF SERVICE: Nov 13, 2020 Foam Molder Progress Note Subjective: Patient seen in the gym on the nu-step denying any pain, stating he does not feel dizzy when he is told his blood pressures are low. REVIEW OF SYSTEMS: The following is a completed review of systems and has been reviewed. Review of systems otherwise unremarkable. PAIN: Patient self reports no pain EYES:+low vision EARS, NOSE, & THROAT: No throat pain, or dysphagia, or rhinorrhea CARDIOVASCULAR: Denies chest pain or palpitations PULMONARY: Denies shortness of breath GASTROINTESTINAL: Denies constipation/diarrhea GENITOURINARY: denies dysuria MUSCULOSKELETAL: right foot fracture NEUROLOGICAL:denies paresthesias HEMATOLOGICAL:denies easy bruising SKIN: denies rash PSYCHIATRIC: Unremarkable All other review of systems found to be negative. PHYSICAL EXAMINATION: VITAL SIGNS: Please see below. GENERAL: Pleasant and cooperative. No acute distress. HEENT: Extraocular movements grossly intact. CARDIOVASCULAR: irregular rate and rhythm. No murmurs, rubs, or gallops LUNGS: Clear to auscultation bilaterally. No wheezes. No rhonchi ABDOMEN: Soft, nontender, nondistended. Positive bowel sounds. Normal active bowel sounds NEUROLOGICAL: Alert and oriented x3 Cranial nerves II through XII grossly intact. Sensation grossly intact EXTREMITIES: 5\5 strength bilateral upper extremities. 4\5 strength right lower extremity. 5/5 strength in left lower extremity. +right foot swelling, dried blood between toes bilat LE edema (negative homans) SKIN: no sacral wound noted ASSESSMENT:80-year-old M with past medical history of Afib, diastolic CHF, epilepsy who presents status post injury to right foot with fracture PLAN: 1. Rehab-PT/OT advance mobility and ADLs, strengthen/stretch/maintain ROM all 4 limbs -BAG SHAKER for cog and swallow 2. 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 Cardiac-chronic diastolic CHF, c/u fluid restriction, daily weights, lasix for LE edema -patient with orthostatics, mostly asymptomatic, however also with elevated Bps, will d/c midodrine as can worsen HTN and start mestinon instead which is less likely to cause elevated BPs -Afib on eliquis -HLD-c/u statin -medicine consulted to assist in overall management 4. Resp- monitor for infection, incentive spirometry 5. Onc- hx of CLL, f/u oncology outpatient 6. Renal- CKD, monitor COLLEEN 7. GI ppx- protonix 8. DVT ppx- eliquis 9. Orhto- right 4/5th proximal intraarticular phalangeal fractures with extension into metatarsal- WBAT with stiff-sole cast shoe, f/u ortho outpatient -epsom salt bath for foot swelling 10. PAin -tylenol 11. Psych- s/p Doxepin for depression due to hypotension monitor and consider alternative medication 12. Dispo- TBD Allergies Coded Allergies: ciclopirox (Verified Allergy, Intermediate, rash, hives, 06/12/19) Vital Signs Vital Signs Date Time Temp Pulse Resp B/P (MAP) Pulse Ox O2 Delivery O2 Flow Rate FiO2 11/13/20 05:04 77 92/51 (65) 11/13/20 05:00 98.1 18 98 Room Air Laboratory Data CBC/BMP Laboratory Tests 11/13/20 09:58 Labs 24H Laboratory Tests 2 11/13/20 09:58: Neutrophils (%) (Auto) , Nucleated Red Blood Cells % (auto) 0.0, Neutrophils 25L, Band Neutrophils 5, Lymphocytes (Manual) 40, Monocytes (Manual) 10H, Eosinophils (Manual) 14H, Atypical Lymphocytes 6H, Hypochromasia 1+, Anisocytosis 2+, Platelet Estimate NORMAL, Anion Gap 3L, Glomerular Filtration Rate 59.2, Calcium Level 9.1 Current Medications Current Medications Current Medications Medications (Trade) Dose Ordered Sig/Kristen Route PRN Reason Start Time Stop Time Status Last Admin Dose Admin Acetaminophen (Tylenol Tab) 650 mg Q4HP PRN PO fever/MILD PAIN (PS 1-4) 11/11/20 19:00 Allopurinol (Zyloprim) 100 mg DAILY PO 11/12/20 09:00 11/13/20 08:52 Apixaban (Eliquis) 2.5 mg BID PO 11/11/20 21:00 11/13/20 08:52 Artificial Tears (Akwa Tears) 2 drop TID OU 11/11/20 21:00 11/13/20 08:50 Aspirin (Ecotrin) 81 mg DAILY PO 11/12/20 09:00 11/13/20 08:53 Atorvastatin Calcium (Lipitor) 80 mg QHS PO 11/12/20 21:00 11/12/20 21:37 Bisacodyl (Dulcolax Suppository) 10 mg DAILYPRN PRN [place] CONSTIPATION 11/11/20 19:00 Docusate Sodium (Colace) 100 mg BID PO 11/11/20 21:00 11/13/20 08:53 Furosemide (Lasix) 20 mg DAILY PO 11/12/20 14:00 11/13/20 08:53 Gabapentin (Neurontin) 100 mg BID PO 11/11/20 21:00 11/12/20 14:04 DC 11/12/20 09:58 Home Med (Med Rec Complete!) ASDIRECTED XX 11/11/20 18:05 11/11/20 18:06 DC Levetiracetam (Keppra) 500 mg BID PO 11/11/20 21:00 11/13/20 08:53 Magnesium Oxide (Mag-Ox) 400 mg BID PO 11/11/20 21:00 11/13/20 08:52 Magnesium Sulfate (Epsom Salt) add to luke warm water ... DAILY@1700 TOP 11/12/20 17:00 Midodrine (Proamatine) 2.5 mg 08,12,16 PO 11/12/20 08:00 11/12/20 14:04 DC 11/12/20 12:46 Midodrine (Proamatine) 2.5 mg 08,12,16 PRN PO sBP <120 11/12/20 14:00 11/13/20 08:52 Montelukast Sodium (Singulair) 10 mg DAILY PO 11/12/20 09:00 11/13/20 08:53 Omeprazole (PriLOSEC) 40 mg DAILY PO 11/12/20 09:00 11/13/20 08:53 Polyethylene Glycol (Miralax) 1 pkt DAILY PRN PO CONSTIPATION 11/11/20 19:00 Senna (Senokot) 1 tab QHS PO 11/11/20 21:00 11/12/20 21:37 Triamcinolone Acetonide (Kenalog 0.1% Ointment) 1 dose BID TOP 11/11/20 21:00 11/13/20 09:00 Valacyclovir HCl (Valtrex) 500 mg DAILY PO 11/12/20 09:00 11/13/20 08:53 Vitamin D (Vitamin D) 1,000 units DAILY PO 11/12/20 09:00 11/13/20 08:53 RAMY KOCH MD Nov 13, 2020 12:02
[2020-11-13] MEDS ORDERED: PILL CUTTER 1 EACH XX PRN (12:20)
[2020-11-13] MEDS: PYRIDOSTIGMINE 60 MG TAB PO SCH ×3 (12:44→20:23)
[2020-11-13] MEDS: MAGNESIUM SULFATE GRANULES(EPSOM SALT) 1LB TOP SCH (15:51)
[2020-11-13] MEDS: SENNA 8.6 MG TAB (SENOKOT) PO SCH (20:22)
[2020-11-13] MEDS: ATORVASTATIN 20 MG TAB PO SCH (20:22)
[2020-11-14] MEDS: ACETAMINOPHEN TAB 650MG DOSE (2X325MG) PO PRN (01:50)
[2020-11-14 05:18] VITALS: BP_SYST 134; BP_SYST 137; BP_SYST 150; BP_DIAS 62; BP_DIAS 70; BP_DIAS 74
[2020-11-14] MEDS: ASPIRIN 81MG ENTERIC TABLET PO SCH (08:36)
[2020-11-14] MEDS: APIXABAN 2.5 MG TAB (ELIQUIS) PO SCH ×2 (08:36→20:24)
[2020-11-14] MEDS: valACYclovir HCL 500 MG TAB PO SCH (08:36)
[2020-11-14] MEDS: VITAMIN D 1,000 INTERNATIONAL UNITS TABLET PO SCH (08:36)
[2020-11-14] MEDS: MONTELUKAST 10 MG TAB PO SCH (08:36)
[2020-11-14] MEDS: DOCUSATE SODIUM 100MG CAPSULE PO SCH ×2 (08:36→20:23)
[2020-11-14] MEDS: allopurinoL 100 MG TAB PO SCH (08:37)
[2020-11-14] MEDS: MAGNESIUM OXIDE 400MG TAB (MAG-OX) PO SCH ×2 (08:37→20:24)
[2020-11-14] MEDS: FUROSEMIDE 20 MG TAB PO SCH (08:37)
[2020-11-14] MEDS: PYRIDOSTIGMINE 60 MG TAB PO SCH ×3 (08:38→20:24)
[2020-11-14] MEDS: OMEPRAZOLE 20 MG CAP PO SCH (08:38)
[2020-11-14] MEDS: levETIRAcetam 250MG TABLET (KEPPRA) PO SCH ×2 (08:38→20:23)
[2020-11-14] MEDS: REMEDY PHYTOPLEX Z-GUARD PASTE 113GM TUBE (FROM STOREROOM PRODUCT) TOP SCH ×3 (08:39→20:24)
[2020-11-14] MEDS: TRIAMCINOLONE ACET 0.1% OINTMENT 15 GM TOP SCH ×2 (08:39→20:25)
[2020-11-14] MEDS: POLYVINYL ALCOHOL OPHTH SOLN 15 ML(LIQUITEARS) OU SCH ×3 (08:40→20:25)
--- NOTE | 2020-11-14 11:17 | IPNPDOC ---
PM&R Progress Note DATE OF SERVICE: Nov 14, 2020 [employer] Electric[employer] Progress Note Subjective: Patient seen in his room stating he wants to go home with his brother Sanya. He thinks his legs feel less swollen. REVIEW OF SYSTEMS: The following is a completed review of systems and has been reviewed. Review of systems otherwise unremarkable. PAIN: Patient self reports no pain EYES:+low vision EARS, NOSE, & THROAT: No throat pain, or dysphagia, or rhinorrhea CARDIOVASCULAR: Denies chest pain or palpitations PULMONARY: Denies shortness of breath GASTROINTESTINAL: Denies constipation/diarrhea GENITOURINARY: denies dysuria MUSCULOSKELETAL: right foot fracture NEUROLOGICAL:denies paresthesias HEMATOLOGICAL:denies easy bruising SKIN: denies rash PSYCHIATRIC: Unremarkable All other review of systems found to be negative. PHYSICAL EXAMINATION: VITAL SIGNS: Please see below. GENERAL: Pleasant and cooperative. No acute distress. HEENT: Extraocular movements grossly intact. CARDIOVASCULAR: irregular rate and rhythm. No murmurs, rubs, or gallops LUNGS: Clear to auscultation bilaterally. No wheezes. No rhonchi ABDOMEN: Soft, nontender, nondistended. Positive bowel sounds. Normal active bowel sounds NEUROLOGICAL: Alert and oriented x3 Cranial nerves II through XII grossly intact. Sensation grossly intact EXTREMITIES: 5\5 strength bilateral upper extremities. 4\5 strength right lower extremity. 5/5 strength in left lower extremity. +right foot swelling, dried blood between toes bilat LE edema (negative homans)- improving SKIN: no sacral wound noted ASSESSMENT:80-year-old M with past medical history of Afib, diastolic CHF, epilepsy who presents status post injury to right foot with fracture PLAN: 1. Rehab-PT/OT advance mobility and ADLs, strengthen/stretch/maintain ROM all 4 limbs -QUALITY ASSURANCE SPECIALIST for cog and swallow 2. 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 Cardiac-chronic diastolic CHF, c/u fluid restriction, daily weights, lasix for LE edema -patient with orthostatics, mostly asymptomatic, however also with elevated Bps, will d/c midodrine as can worsen HTN, c/u mestinon -Afib on eliquis -HLD-c/u statin -medicine consulted to assist in overall management 4. Resp- monitor for infection, incentive spirometry 5. Onc- hx of CLL, f/u oncology outpatient 6. Renal- CKD, monitor COLLEEN 7. GI ppx- protonix 8. DVT ppx- eliquis 9. Orhto- right 4/5th proximal intraarticular phalangeal fractures with extension into metatarsal- WBAT with stiff-sole cast shoe, f/u ortho outpatient -epsom salt bath for foot swelling 10. PAin -tylenol 11. Psych- s/p Doxepin for depression due to hypotension monitor and consider alternative medication- patient slightly irritable, with reported history of hallucination, but participating in therapy- will start low dose Seroquel daily 12. Dispo- TBD Allergies Coded Allergies: ciclopirox (Verified Allergy, Intermediate, rash, hives, 06/12/19) Vital Signs Vital Signs Date Time Temp Pulse Resp B/P (MAP) Pulse Ox O2 Delivery O2 Flow Rate FiO2 11/14/20 05:18 98.2 65 18 150/70 (96) 99 Room Air Current Medications Current Medications Current Medications Medications (Trade) Dose Ordered Sig/Kristen Route PRN Reason Start Time Stop Time Status Last Admin Dose Admin Acetaminophen (Tylenol Tab) 650 mg Q4HP PRN PO fever/MILD PAIN (PS 1-4) 11/11/20 19:00 11/14/20 01:50 Allopurinol (Zyloprim) 100 mg DAILY PO 11/12/20 09:00 11/14/20 08:37 Apixaban (Eliquis) 2.5 mg BID PO 11/11/20 21:00 11/14/20 08:36 Artificial Tears (Akwa Tears) 2 drop TID OU 11/11/20 21:00 11/14/20 08:40 Aspirin (Ecotrin) 81 mg DAILY PO 11/12/20 09:00 11/14/20 08:36 Atorvastatin Calcium (Lipitor) 80 mg QHS PO 11/12/20 21:00 11/13/20 20:22 Bisacodyl (Dulcolax Suppository) 10 mg DAILYPRN PRN [place] CONSTIPATION 11/11/20 19:00 Docusate Sodium (Colace) 100 mg BID PO 11/11/20 21:00 11/14/20 08:36 Furosemide (Lasix) 20 mg DAILY PO 11/12/20 14:00 11/14/20 08:37 Gabapentin (Neurontin) 100 mg BID PO 11/11/20 21:00 11/12/20 14:04 DC 11/12/20 09:58 Home Med (Med Rec Complete!) ASDIRECTED XX 11/11/20 18:05 11/11/20 18:06 DC Levetiracetam (Keppra) 500 mg BID PO 11/11/20 21:00 11/14/20 08:38 Magnesium Oxide (Mag-Ox) 400 mg BID PO 11/11/20 21:00 11/14/20 08:37 Magnesium Sulfate (Epsom Salt) add to luke warm water ... DAILY@1700 TOP 11/12/20 17:00 11/13/20 15:51 Midodrine (Proamatine) 2.5 mg 08,12,16 PO 11/12/20 08:00 11/12/20 14:04 DC 11/12/20 12:46 Midodrine (Proamatine) 2.5 mg 08,12,16 PRN PO sBP <120 11/12/20 14:00 11/13/20 11:59 DC 11/13/20 08:52 Montelukast Sodium (Singulair) 10 mg DAILY PO 11/12/20 09:00 11/14/20 08:36 Omeprazole (PriLOSEC) 40 mg DAILY PO 11/12/20 09:00 11/14/20 08:38 Polyethylene Glycol (Miralax) 1 pkt DAILY PRN PO CONSTIPATION 11/11/20 19:00 Pyridostigmine [place] (Mestinon) 15 mg TID PO 11/13/20 12:00 11/14/20 08:38 Senna (Senokot) 1 tab QHS PO 11/11/20 21:00 11/13/20 20:22 Triamcinolone Acetonide (Kenalog 0.1% Ointment) 1 dose BID TOP 11/11/20 21:00 11/14/20 08:39 Valacyclovir HCl (Valtrex) 500 mg DAILY PO 11/12/20 09:00 11/14/20 08:36 Vitamin D (Vitamin D) 1,000 units DAILY PO 11/12/20 09:00 11/14/20 08:36 RAMY KOCH MD Nov 14, 2020 11:17
[2020-11-14] MEDS: QUEtiapine FUMARATE 12.5 MG HALF-TAB PO SCH (12:17)
[2020-11-14 14:00] VITALS: BP_SYST 123; BP_SYST 135; BP_SYST 138; BP_SYST 93; BP_DIAS 58; BP_DIAS 61; BP_DIAS 74; BP_DIAS 85
[2020-11-14] MEDS: MAGNESIUM SULFATE GRANULES(EPSOM SALT) 1LB TOP SCH (16:41)
[2020-11-14 20:00] VITALS: BP_SYST 100; BP_SYST 140; BP_SYST 149; BP_DIAS 58; BP_DIAS 68; BP_DIAS 70
[2020-11-14] MEDS: ATORVASTATIN 20 MG TAB PO SCH (20:23)
[2020-11-14] MEDS: SENNA 8.6 MG TAB (SENOKOT) PO SCH (20:23)
[2020-11-15] MEDS: ACETAMINOPHEN TAB 650MG DOSE (2X325MG) PO PRN ×2 (02:20→22:08)
[2020-11-15 06:00] VITALS: BP_SYST 122; BP_SYST 132; BP_SYST 151; BP_DIAS 60; BP_DIAS 63; BP_DIAS 67
[2020-11-15 06:58] LABS: BASO % 0.7 % (0.0-1.0); EOS # 1.1 10^3/uL (0.0-0.5); EOS % 17.7 % (0.0-3.0); HEMATOCRIT 30.8 % (42.0-52.0); HEMOGLOBIN 9.5 g/dl (13.5-17.5); LYMPH # 2.2 10^3/uL (1.5-5.0); LYMPH % 36.5 % (24.0-44.0); MEAN CORPUSCULAR HEMOGLOBIN 25.9 pg (27.0-33.0); MEAN CORPUSCULAR HGB CONC 30.8 g/dl (32.0-36.5); MEAN CORPUSCULAR VOLUME 83.9 fl (80.0-96.0); MONO # 0.6 10^3/uL (0.0-0.8); MONO % 9.5 % (2.0-8.0); NEUTROPHILS % 34.2 % (36.0-66.0); PLATELET COUNT, AUTOMATED 223 10^3/uL (150-450); RED BLOOD COUNT 3.67 10^6/uL (4.30-6.10); WHITE BLOOD COUNT 5.9 10^3/uL (4.0-10.0)
[2020-11-15 07:18] LABS: CALCIUM LEVEL 8.4 MG/DL (8.8-10.2); CREATININE FOR GFR 1.28 MG/DL (0.70-1.30); GLOMERULAR FILTRATION RATE 57.6 (>35); POTASSIUM SERUM 3.6 MEQ/L (3.5-5.1)
[2020-11-15] MEDS: POLYVINYL ALCOHOL OPHTH SOLN 15 ML(LIQUITEARS) OU SCH ×3 (08:37→22:10)
[2020-11-15] MEDS: ASPIRIN 81MG ENTERIC TABLET PO SCH (08:37)
[2020-11-15] MEDS: VITAMIN D 1,000 INTERNATIONAL UNITS TABLET PO SCH (08:37)
[2020-11-15] MEDS: OMEPRAZOLE 20 MG CAP PO SCH (08:37)
[2020-11-15] MEDS: APIXABAN 2.5 MG TAB (ELIQUIS) PO SCH ×2 (08:37→22:09)
[2020-11-15] MEDS: FUROSEMIDE 20 MG TAB PO SCH (08:38)
[2020-11-15] MEDS: levETIRAcetam 250MG TABLET (KEPPRA) PO SCH ×2 (08:38→22:08)
[2020-11-15] MEDS: QUEtiapine FUMARATE 12.5 MG HALF-TAB PO SCH (08:38)
[2020-11-15] MEDS: MAGNESIUM OXIDE 400MG TAB (MAG-OX) PO SCH ×2 (08:38→22:07)
[2020-11-15] MEDS: DOCUSATE SODIUM 100MG CAPSULE PO SCH ×2 (08:38→22:16)
[2020-11-15] MEDS: allopurinoL 100 MG TAB PO SCH (08:38)
[2020-11-15] MEDS: MONTELUKAST 10 MG TAB PO SCH (08:38)
[2020-11-15] MEDS: TRIAMCINOLONE ACET 0.1% OINTMENT 15 GM TOP SCH ×2 (08:39→22:10)
[2020-11-15] MEDS: REMEDY PHYTOPLEX Z-GUARD PASTE 113GM TUBE (FROM STOREROOM PRODUCT) TOP SCH ×3 (08:40→22:10)
[2020-11-15] MEDS: valACYclovir HCL 500 MG TAB PO SCH (11:34)
[2020-11-15] MEDS: PYRIDOSTIGMINE 60 MG TAB PO SCH ×3 (11:35→22:09)
[2020-11-15 14:00] VITALS: BP 112/55
[2020-11-15] MEDS: MAGNESIUM SULFATE GRANULES(EPSOM SALT) 1LB TOP SCH (17:00)
[2020-11-15 20:10] VITALS: BP_SYST 122; BP_SYST 139; BP_SYST 150; BP_DIAS 60; BP_DIAS 65; BP_DIAS 70
[2020-11-15] MEDS: ATORVASTATIN 20 MG TAB PO SCH (22:07)
[2020-11-15] MEDS: SENNA 8.6 MG TAB (SENOKOT) PO SCH (22:16)
[2020-11-16 05:51] VITALS: BP_SYST 133; BP_SYST 146; BP_SYST 151; BP_DIAS 67; BP_DIAS 69; BP_DIAS 75
[2020-11-16] MEDS: FUROSEMIDE 20 MG TAB PO SCH (08:15)
[2020-11-16] MEDS: DOCUSATE SODIUM 100MG CAPSULE PO SCH ×2 (08:15→20:20)
[2020-11-16] MEDS: MONTELUKAST 10 MG TAB PO SCH (08:15)
[2020-11-16] MEDS: QUEtiapine FUMARATE 12.5 MG HALF-TAB PO SCH (08:16)
[2020-11-16] MEDS: allopurinoL 100 MG TAB PO SCH (08:16)
[2020-11-16] MEDS: VITAMIN D 1,000 INTERNATIONAL UNITS TABLET PO SCH (08:16)
[2020-11-16] MEDS: ASPIRIN 81MG ENTERIC TABLET PO SCH (08:16)
[2020-11-16] MEDS: APIXABAN 2.5 MG TAB (ELIQUIS) PO SCH ×2 (08:16→20:19)
[2020-11-16] MEDS: levETIRAcetam 250MG TABLET (KEPPRA) PO SCH ×2 (08:16→20:21)
[2020-11-16] MEDS: OMEPRAZOLE 20 MG CAP PO SCH (08:16)
[2020-11-16] MEDS: valACYclovir HCL 500 MG TAB PO SCH (08:16)
[2020-11-16] MEDS: MAGNESIUM OXIDE 400MG TAB (MAG-OX) PO SCH ×2 (08:16→20:21)
[2020-11-16] MEDS: REMEDY PHYTOPLEX Z-GUARD PASTE 113GM TUBE (FROM STOREROOM PRODUCT) TOP SCH ×3 (08:17→20:25)
[2020-11-16] MEDS: PYRIDOSTIGMINE 60 MG TAB PO SCH ×3 (08:17→20:20)
[2020-11-16] MEDS: TRIAMCINOLONE ACET 0.1% OINTMENT 15 GM TOP SCH ×2 (08:18→20:25)
[2020-11-16] MEDS: POLYVINYL ALCOHOL OPHTH SOLN 15 ML(LIQUITEARS) OU SCH ×3 (08:18→20:24)
[2020-11-16 14:00] VITALS: BP 139/63
[2020-11-16] MEDS: MAGNESIUM SULFATE GRANULES(EPSOM SALT) 1LB TOP SCH (16:53)
[2020-11-16 19:46] VITALS: BP 128/60
[2020-11-16] MEDS: SENNA 8.6 MG TAB (SENOKOT) PO SCH (20:21)
[2020-11-16] MEDS: ATORVASTATIN 20 MG TAB PO SCH (20:21)
[2020-11-16] MEDS: ACETAMINOPHEN TAB 650MG DOSE (2X325MG) PO PRN (20:24)
[2020-11-17 05:25] VITALS: BP 156/69
[2020-11-17 05:26] VITALS: BP_SYST 117; BP_SYST 156; BP_DIAS 58; BP_DIAS 70; BP_DIAS 76; BP_DIAS 79
[2020-11-17] MEDS: REMEDY PHYTOPLEX Z-GUARD PASTE 113GM TUBE (FROM STOREROOM PRODUCT) TOP SCH ×3 (09:00→20:23)
[2020-11-17] MEDS: levETIRAcetam 250MG TABLET (KEPPRA) PO SCH ×2 (09:14→20:21)
[2020-11-17] MEDS: MAGNESIUM OXIDE 400MG TAB (MAG-OX) PO SCH ×2 (09:14→20:21)
[2020-11-17] MEDS: ASPIRIN 81MG ENTERIC TABLET PO SCH (09:14)
[2020-11-17] MEDS: VITAMIN D 1,000 INTERNATIONAL UNITS TABLET PO SCH (09:14)
[2020-11-17] MEDS: MONTELUKAST 10 MG TAB PO SCH (09:14)
[2020-11-17] MEDS: valACYclovir HCL 500 MG TAB PO SCH (09:14)
[2020-11-17] MEDS: DOCUSATE SODIUM 100MG CAPSULE PO SCH ×2 (09:14→20:22)
[2020-11-17] MEDS: FUROSEMIDE 20 MG TAB PO SCH (09:15)
[2020-11-17] MEDS: ACETAMINOPHEN TAB 650MG DOSE (2X325MG) PO PRN ×3 (09:15→20:22)
[2020-11-17] MEDS: OMEPRAZOLE 20 MG CAP PO SCH (09:15)
[2020-11-17] MEDS: QUEtiapine FUMARATE 12.5 MG HALF-TAB PO SCH (09:15)
[2020-11-17] MEDS: APIXABAN 2.5 MG TAB (ELIQUIS) PO SCH ×2 (09:16→20:21)
[2020-11-17] MEDS: allopurinoL 100 MG TAB PO SCH (09:16)
[2020-11-17] MEDS: POLYVINYL ALCOHOL OPHTH SOLN 15 ML(LIQUITEARS) OU SCH ×3 (09:16→20:23)
[2020-11-17] MEDS: PYRIDOSTIGMINE 60 MG TAB PO SCH ×3 (09:16→20:22)
[2020-11-17] MEDS: TRIAMCINOLONE ACET 0.1% OINTMENT 15 GM TOP SCH ×2 (09:17→20:23)
[2020-11-17 14:00] VITALS: BP 158/67
[2020-11-17] MEDS: MAGNESIUM SULFATE GRANULES(EPSOM SALT) 1LB TOP SCH (15:52)
[2020-11-17 20:00] VITALS: BP 169/75
[2020-11-17] MEDS: ATORVASTATIN 20 MG TAB PO SCH (20:21)
[2020-11-17] MEDS: SENNA 8.6 MG TAB (SENOKOT) PO SCH (20:22)
[2020-11-18 05:28] VITALS: BP 144/70
[2020-11-18 07:06] LABS: BASO # 0.1 10^3/uL (0.0-0.2); BASO % 1.2 % (0.0-1.0); EOS # 0.7 10^3/uL (0.0-0.5); EOS % 11.9 % (0.0-3.0); HEMATOCRIT 31.6 % (42.0-52.0); HEMOGLOBIN 9.6 g/dl (13.5-17.5); LYMPH # 1.9 10^3/uL (1.5-5.0); LYMPH % 33.6 % (24.0-44.0); MEAN CORPUSCULAR HEMOGLOBIN 25.9 pg (27.0-33.0); MEAN CORPUSCULAR HGB CONC 30.4 g/dl (32.0-36.5); MEAN CORPUSCULAR VOLUME 85.2 fl (80.0-96.0); MONO # 0.5 10^3/uL (0.0-0.8); MONO % 9.1 % (2.0-8.0); NEUTROPHILS # 2.5 10^3/uL (1.5-8.5); NEUTROPHILS % 43.7 % (36.0-66.0); PLATELET COUNT, AUTOMATED 233 10^3/uL (150-450); RED BLOOD COUNT 3.71 10^6/uL (4.30-6.10); WHITE BLOOD COUNT 5.6 10^3/uL (4.0-10.0)
[2020-11-18] MEDS: DOCUSATE SODIUM 100MG CAPSULE PO SCH ×2 (07:48→20:59)
[2020-11-18] MEDS: MAGNESIUM OXIDE 400MG TAB (MAG-OX) PO SCH ×2 (07:49→20:58)
[2020-11-18] MEDS: FUROSEMIDE 20 MG TAB PO SCH (07:49)
[2020-11-18] MEDS: valACYclovir HCL 500 MG TAB PO SCH (07:49)
[2020-11-18] MEDS: MONTELUKAST 10 MG TAB PO SCH (07:49)
[2020-11-18] MEDS: OMEPRAZOLE 20 MG CAP PO SCH (07:49)
[2020-11-18] MEDS: VITAMIN D 1,000 INTERNATIONAL UNITS TABLET PO SCH (07:49)
[2020-11-18] MEDS: QUEtiapine FUMARATE 12.5 MG HALF-TAB PO SCH (07:49)
[2020-11-18] MEDS: ASPIRIN 81MG ENTERIC TABLET PO SCH (07:49)
[2020-11-18] MEDS: allopurinoL 100 MG TAB PO SCH (07:50)
[2020-11-18] MEDS: PYRIDOSTIGMINE 60 MG TAB PO SCH ×3 (07:50→20:58)
[2020-11-18] MEDS: POLYVINYL ALCOHOL OPHTH SOLN 15 ML(LIQUITEARS) OU SCH ×3 (07:50→20:59)
[2020-11-18] MEDS: levETIRAcetam 250MG TABLET (KEPPRA) PO SCH ×2 (07:50→20:58)
[2020-11-18] MEDS: TRIAMCINOLONE ACET 0.1% OINTMENT 15 GM TOP SCH ×2 (07:50→21:00)
[2020-11-18] MEDS: APIXABAN 2.5 MG TAB (ELIQUIS) PO SCH ×2 (07:50→20:58)
[2020-11-18] MEDS: REMEDY PHYTOPLEX Z-GUARD PASTE 113GM TUBE (FROM STOREROOM PRODUCT) TOP SCH ×3 (07:51→20:59)
[2020-11-18] MEDS: ACETAMINOPHEN TAB 650MG DOSE (2X325MG) PO PRN ×2 (07:53→20:59)
[2020-11-18 08:37] LABS: BLOOD UREA NITROGEN 17 MG/DL (7-18); CALCIUM LEVEL 8.8 MG/DL (8.8-10.2); CARBON DIOXIDE LEVEL 28 MEQ/L (21-32); CHLORIDE LEVEL 104 MEQ/L (98-107); CREATININE FOR GFR 1.11 MG/DL (0.70-1.30); GLOMERULAR FILTRATION RATE > 60.0 (>35); GLUCOSE, FASTING 90 MG/DL (70-100); POTASSIUM SERUM 4.3 MEQ/L (3.5-5.1); SODIUM LEVEL 139 MEQ/L (136-145)
[2020-11-18 14:00] VITALS: BP 129/68
[2020-11-18] MEDS: MAGNESIUM SULFATE GRANULES(EPSOM SALT) 1LB TOP SCH (17:33)
[2020-11-18 20:00] VITALS: BP 143/64
--- NOTE | 2020-11-18 20:35 | IPNPDOC ---
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 He denies having any dizziness and that his foot pain is well cont rolled. REVIEW OF SYSTEMS: The following is a completed review of systems and has been reviewed. Review of systems otherwise unremarkable. PAIN: Patient self reports no pain EYES:+low vision EARS, NOSE, & THROAT: No throat pain, or dysphagia, or rhinorrhea CARDIOVASCULAR: Denies chest pain or palpitations PULMONARY: Denies shortness of breath GASTROINTESTINAL: Denies constipation/diarrhea GENITOURINARY: denies dysuria MUSCULOSKELETAL: right foot fracture NEUROLOGICAL:denies paresthesias HEMATOLOGICAL:denies easy bruising SKIN: denies rash PSYCHIATRIC: Unremarkable All other review of systems found to be negative. PHYSICAL EXAMINATION: VITAL SIGNS: Please see below. GENERAL: Pleasant and cooperative. No acute distress. HEENT: Extraocular movements grossly intact. CARDIOVASCULAR: irregular rate and rhythm. No murmurs, rubs, or gallops LUNGS: Clear to auscultation bilaterally. No wheezes. No rhonchi ABDOMEN: Soft, nontender, nondistended. Positive bowel sounds. Normal active b owel sounds NEUROLOGICAL: Alert and oriented x3 Cranial nerves II through XII grossly intact. Sensation grossly intact EXTREMITIES: 5\5 strength bilateral upper extremities. 4\5 strength right lower extremity. 5/5 strength in left lower extremity. bilat LE edema (negative homans)- improving SKIN: no sacral wound noted ASSESSMENT:80-year-old M with past medical history of Afib, diastolic CHF, epilepsy who presents status post injury to right foot with fracture PLAN: 1. Rehab-PT/OT advance mobility and ADLs, strengthen/stretch/maintain ROM all 4 limbs, inconsistent mobility in therpy, but ambulating with RW -BACTERIOLOGIST MEDICAL for cog and swallow 2. 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 Cardiac-chronic diastolic CHF, c/u fluid restriction, daily weights, lasix for LE edema -patient with orthostatics, mostly asymptomatic, however also with elevated Bps, will d/c midodrine as can worsen HTN, c/u mestinon -Afib on eliquis -HLD-c/u statin -medicine consulted to assist in overall management 4. Resp- monitor for infection, incentive spirometry 5. Onc- hx of CLL, f/u oncology outpatient 6. Renal- CKD, monitor COLLEEN 7. GI ppx- protonix 8. DVT ppx- eliquis 9. Orhto- right 4/5th proximal intraarticular phalangeal fractures with extension into metatarsal- WBAT with stiff-sole cast shoe, f/u ortho outpatient -epsom salt bath for foot swelling 10. PAin -tylenol 11. Psych- s/p Doxepin for depression due to hypotension monitor and consider alternative medication- patient slightly irritable, with reported history of hallucination, but participating in therapy- c/u low dose Seroquel daily 12. Dispo- TBD Allergies Coded Allergies: ciclopirox (Verified Allergy, Intermediate, rash, hives, 06/12/19) Vital Signs Vital Signs Date Time Temp Pulse Resp B/P (MAP) Pulse Ox O2 Delivery O2 Flow Rate FiO2 11/18/20 14:00 97.4 69 18 129/68 (88) 99 Room Air Laboratory Data CBC/BMP Laboratory Tests 11/18/20 06:46 11/18/20 07:43 Labs 24H Laboratory Tests 2 11/18/20 06:46: Immature Granulocyte % (Auto) 0.5, Neutrophils (%) (Auto) 43.7, Lymphocytes (%) (Auto) 33.6, Monocytes (%) (Auto) 9.1H, Eosinophils (%) (Auto) 11.9H, Basophils (%) (Auto) 1.2H, Neutrophils # (Auto) 2.5, Lymphocytes # (Auto) 1.9, Monocytes # (Auto) 0.5, Eosinophils # (Auto) 0.7H, Basophils # (Auto) 0.1, Nucleated Red Blood Cells % (auto) 0.0 11/18/20 07:43: Anion Gap 7L, Glomerular Filtration Rate > 60.0, Calcium Level 8.8 Current Medications Current Medications Current Medications Medications (Trade) Dose Ordered Sig/Kristen Route PRN Reason Start Time Stop Time Status Last Admin Dose Admin Acetaminophen (Tylenol Tab) 650 mg Q4HP PRN PO fever/MILD PAIN (PS 1-4) 11/11/20 19:00 11/18/20 07:53 Allopurinol (Zyloprim) 100 mg DAILY PO 11/12/20 09:00 11/18/20 07:50 Apixaban (Eliquis) 2.5 mg BID PO 11/11/20 21:00 11/18/20 07:50 Artificial Tears (Akwa Tears) 2 drop TID OU 11/11/20 21:00 11/18/20 17:33 Aspirin (Ecotrin) 81 mg DAILY PO 11/12/20 09:00 11/18/20 07:49 Atorvastatin Calcium (Lipitor) 80 mg QHS PO 11/12/20 21:00 11/17/20 20:21 Bisacodyl (Dulcolax Suppository) 10 mg DAILYPRN PRN [place] CONSTIPATION 11/11/20 19:00 Docusate Sodium (Colace) 100 mg BID PO 11/11/20 21:00 11/18/20 07:48 Furosemide (Lasix) 20 mg DAILY PO 11/12/20 14:00 11/18/20 07:49 Gabapentin (Neurontin) 100 mg BID PO 11/11/20 21:00 11/12/20 14:04 DC 11/12/20 09:58 Home Med (Med Rec Complete!) ASDIRECTED XX 11/11/20 18:05 11/11/20 18:06 DC Levetiracetam (Keppra) 500 mg BID PO 11/11/20 21:00 11/18/20 07:50 Magnesium Oxide (Mag-Ox) 400 mg BID PO 11/11/20 21:00 11/18/20 07:49 Magnesium Sulfate (Epsom Salt) add to luke warm water ... DAILY@1700 TOP 11/12/20 17:00 11/18/20 17:33 Midodrine (Proamatine) 2.5 mg 08,12,16 PO 11/12/20 08:00 11/12/20 14:04 DC 11/12/20 12:46 Midodrine (Proamatine) 2.5 mg 08,12,16 PRN PO sBP <120 11/12/20 14:00 11/13/20 11:59 DC 11/13/20 08:52 Montelukast Sodium (Singulair) 10 mg DAILY PO 11/12/20 09:00 11/18/20 07:49 Omeprazole (PriLOSEC) 40 mg DAILY PO 11/12/20 09:00 11/18/20 07:49 Polyethylene Glycol (Miralax) 1 pkt DAILY PRN PO CONSTIPATION 11/11/20 19:00 Pyridostigmine [place] (Mestinon) 15 mg TID PO 11/13/20 12:00 11/18/20 17:31 Quetiapine Fumarate (SEROquel) 12.5 mg DAILY PO 11/14/20 11:20 11/18/20 07:49 Senna (Senokot) 1 tab QHS PO 11/11/20 21:00 11/16/20 20:21 Triamcinolone Acetonide (Kenalog 0.1% Ointment) 1 dose BID TOP 11/11/20 21:00 11/18/20 07:50 Valacyclovir HCl (Valtrex) 500 mg DAILY PO 11/12/20 09:00 11/18/20 07:49 Vitamin D (Vitamin D) 1,000 units DAILY PO 11/12/20 09:00 11/18/20 07:49 RAMY KOCH MD Nov 18, 2020 20:35
[2020-11-18] MEDS: ATORVASTATIN 20 MG TAB PO SCH (20:58)
[2020-11-18] MEDS: SENNA 8.6 MG TAB (SENOKOT) PO SCH (20:59)
[2020-11-19 05:19] VITALS: BP 142/63
[2020-11-19] MEDS: VITAMIN D 1,000 INTERNATIONAL UNITS TABLET PO SCH (08:06)
[2020-11-19] MEDS: MONTELUKAST 10 MG TAB PO SCH (08:06)
[2020-11-19] MEDS: PYRIDOSTIGMINE 60 MG TAB PO SCH (08:06)
[2020-11-19] MEDS: ASPIRIN 81MG ENTERIC TABLET PO SCH (08:06)
[2020-11-19] MEDS: FUROSEMIDE 20 MG TAB PO SCH (08:07)
[2020-11-19] MEDS: allopurinoL 100 MG TAB PO SCH (08:07)
[2020-11-19] MEDS: APIXABAN 2.5 MG TAB (ELIQUIS) PO SCH ×2 (08:07→19:44)
[2020-11-19] MEDS: MAGNESIUM OXIDE 400MG TAB (MAG-OX) PO SCH (08:08)
[2020-11-19] MEDS: levETIRAcetam 250MG TABLET (KEPPRA) PO SCH ×2 (08:08→19:45)
[2020-11-19] MEDS: valACYclovir HCL 500 MG TAB PO SCH (08:08)
[2020-11-19] MEDS: DOCUSATE SODIUM 100MG CAPSULE PO SCH (08:09)
[2020-11-19] MEDS: OMEPRAZOLE 20 MG CAP PO SCH (08:10)
[2020-11-19] MEDS: QUEtiapine FUMARATE 12.5 MG HALF-TAB PO SCH ×2 (08:10→19:45)
[2020-11-19] MEDS: ACETAMINOPHEN TAB 650MG DOSE (2X325MG) PO PRN (08:12)
[2020-11-19] MEDS: POLYVINYL ALCOHOL OPHTH SOLN 15 ML(LIQUITEARS) OU SCH ×3 (08:20→19:51)
[2020-11-19] MEDS: TRIAMCINOLONE ACET 0.1% OINTMENT 15 GM TOP SCH ×2 (08:21→19:51)
[2020-11-19] MEDS: REMEDY PHYTOPLEX Z-GUARD PASTE 113GM TUBE (FROM STOREROOM PRODUCT) TOP SCH ×3 (08:21→19:45)
--- NOTE | 2020-11-19 12:15 | IPNPDOC ---
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 REVIEW OF SYSTEMS: The following is a completed review of systems and has been reviewed. Review of systems otherwise unremarkable. PAIN: Patient self reports no pain EYES:+low vision EARS, NOSE, & THROAT: No throat pain, or dysphagia, or rhinorrhea CARDIOVASCULAR: Denies chest pain or palpitations PULMONARY: Denies shortness of breath GASTROINTESTINAL: Denies constipation/diarrhea GENITOURINARY: denies dysuria MUSCULOSKELETAL: right foot fracture NEUROLOGICAL:denies paresthesias HEMATOLOGICAL:denies easy bruising SKIN: denies rash PSYCHIATRIC: Unremarkable All other review of systems found to be negative. PHYSICAL EXAMINATION: VITAL SIGNS: Please see below. GENERAL: Pleasant and cooperative. No acute distress. HEENT: Extraocular movements grossly intact. CARDIOVASCULAR: irregular rate and rhythm. No murmurs, rubs, or gallops LUNGS: Clear to auscultation bilaterally. No wheezes. No rhonchi ABDOMEN: Soft, nontender, nondistended. Positive bowel sounds. Normal active bowel sounds NEUROLOGICAL: Alert and oriented x3 Cranial nerves II through XII grossly intact. Sensation grossly intact EXTREMITIES: 5\5 strength bilateral upper extremities. 4\5 strength right lower extremity. 5/5 strength in left lower extremity. bilat LE edema (negative homans)- improving SKIN: no sacral wound noted ASSESSMENT:80-year-old M with past medical history of Afib, diastolic CHF, epilepsy who presents status post injury to right foot with fracture PLAN: 1. Rehab-PT/OT advance mobility and ADLs, strengthen/stretch/maintain ROM all 4 limbs, inconsistent mobility in therapy, but ambulating with RW -LAP CUTTER for cog and swallow 2. 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 Cardiac-chronic diastolic CHF, c/u fluid restriction, daily weights, lasix for LE edema -patient with orthostatics, mostly asymptomatic, however also with elevated Bps, d/c'd midodrine as can worsen HTN, orthostatics better on mestinon, however patient is unlikely going to comply with taking additional medications at home, will trial off mestinon for now and monitor for symptoms -Afib on eliquis -HLD-c/u statin -medicine consulted to assist in overall management 4. Resp- monitor for infection, incentive spirometry 5. Onc- hx of CLL, f/u oncology outpatient 6. Renal- CKD, monitor COLLEEN 7. GI ppx- protonix 8. DVT ppx- eliquis 9. Orhto- right 4/5th proximal intraarticular phalangeal fractures with extension into metatarsal- WBAT with stiff-sole cast shoe, ok to use regular shoe for now as patient's swelling has improved and it is confusing for him to don and becoming a barrier to safe discharge- f/u ortho outpatient -epsom salt bath for foot swelling 10. PAin -tylenol 11. Psych- s/p Doxepin for depression due to hypotension monitor and consider alternative medication- patient slightly irritable, with reported history of hallucination, but participating in therapy- c/u low dose Seroquel daily, will add qHS as well 12. Dispo- goal for Wednesday if able to advance to room privileges Allergies Coded Allergies: ciclopirox (Verified Allergy, Intermediate, rash, hives, 06/12/19) Vital Signs Vital Signs Date Time Temp Pulse Resp B/P (MAP) Pulse Ox O2 Delivery O2 Flow Rate FiO2 11/19/20 05:19 98.0 67 18 142/63 (89) 99 Room Air Current Medications Current Medications Current Medications Medications (Trade) Dose Ordered Sig/Kristen Route PRN Reason Start Time Stop Time Status Last Admin Dose Admin Acetaminophen (Tylenol Tab) 650 mg Q4HP PRN PO fever/MILD PAIN (PS 1-4) 11/11/20 19:00 11/19/20 08:12 Allopurinol (Zyloprim) 100 mg DAILY PO 11/12/20 09:00 11/19/20 08:07 Apixaban (Eliquis) 2.5 mg BID PO 11/11/20 21:00 11/19/20 08:07 Artificial Tears (Akwa Tears) 2 drop TID OU 11/11/20 21:00 11/19/20 08:20 Aspirin (Ecotrin) 81 mg DAILY PO 11/12/20 09:00 11/19/20 08:06 Atorvastatin Calcium (Lipitor) 80 mg QHS PO 11/12/20 21:00 11/18/20 20:58 Bisacodyl (Dulcolax Suppository) 10 mg DAILYPRN PRN [place] CONSTIPATION 11/11/20 19:00 Docusate Sodium (Colace) 100 mg BID PO 11/11/20 21:00 11/18/20 07:48 Furosemide (Lasix) 20 mg DAILY PO 11/12/20 14:00 11/19/20 08:07 Gabapentin (Neurontin) 100 mg BID PO 11/11/20 21:00 11/12/20 14:04 DC 11/12/20 09:58 Home Med (Med Rec Complete!) ASDIRECTED XX 11/11/20 18:05 11/11/20 18:06 DC Levetiracetam (Keppra) 500 mg BID PO 11/11/20 21:00 11/19/20 08:08 Magnesium Oxide (Mag-Ox) 400 mg BID PO 11/11/20 21:00 11/19/20 08:08 Magnesium Sulfate (Epsom Salt) add to luke warm water ... DAILY@1700 TOP 11/12/20 17:00 11/18/20 17:33 Midodrine (Proamatine) 2.5 mg 08,12,16 PO 11/12/20 08:00 11/12/20 14:04 DC 11/12/20 12:46 Midodrine (Proamatine) 2.5 mg 08,12,16 PRN PO sBP <120 11/12/20 14:00 11/13/20 11:59 DC 11/13/20 08:52 Montelukast Sodium (Singulair) 10 mg DAILY PO 11/12/20 09:00 11/19/20 08:06 Omeprazole (PriLOSEC) 40 mg DAILY PO 11/12/20 09:00 11/19/20 08:10 Polyethylene Glycol (Miralax) 1 pkt DAILY PRN PO CONSTIPATION 11/11/20 19:00 Pyridostigmine [place] (Mestinon) 15 mg TID PO 11/13/20 12:00 11/19/20 08:06 Quetiapine Fumarate (SEROquel) 12.5 mg BID PO 11/19/20 21:00 Quetiapine Fumarate (SEROquel) 12.5 mg DAILY PO 11/14/20 11:20 11/19/20 09:55 DC 11/19/20 08:10 Senna (Senokot) 1 tab QHS PO 11/11/20 21:00 11/16/20 20:21 Triamcinolone Acetonide (Kenalog 0.1% Ointment) 1 dose BID TOP 11/11/20 21:00 11/19/20 08:21 Valacyclovir HCl (Valtrex) 500 mg DAILY PO 11/12/20 09:00 11/19/20 08:08 Vitamin D (Vitamin D) 1,000 units DAILY PO 11/12/20 09:00 11/19/20 08:06 RAMY KOCH MD Nov 19, 2020 12:15
[2020-11-19 14:00] VITALS: BP 138/68
[2020-11-19] MEDS: MAGNESIUM SULFATE GRANULES(EPSOM SALT) 1LB TOP SCH (17:00)
[2020-11-19] MEDS ORDERED: QUEtiapine FUMARATE 12.5 MG HALF-TAB PO ONE (17:05)
--- NOTE | 2020-11-19 17:08 | IPNPDOC ---
Date Seen The patient was seen on 11/19/20. Progress Note SUBJECTIVE: No acute complaints. Denies foot pain, incr sob, chest pain, nausea, vomiting, abdominal pain or diarrhea. OBJECTIVE: PHYSICAL EXAMINATION: VITAL SIGNS: please see below General: NAD, comfortable HEENT: PERRLA, EOMI, sclerae clear Neck: supple, normal ROM, no JVD Respiratory: lungs CTAB, no wheeze, no rales, no crackles CVS: RRR, normal S1, S2, no murmurs Abdo: soft, no masses, no hepatosplenomegaly, BS+, no rebound tenderness Extremities: 1+ pitting edema bilaterally MSK: no joint deformities, minimal pain with movement of right foot but limited ROM Neuro: no focal neuro deficits, moving all 4 extremities, CN2-12 intact. Strength 5/5 in all 4 extremities. No nystagmus. Psych: calm, cooperative LABORATORY DATA, IMAGING STUDIES, MICROBIOLOGY: Please see below. ASSESSMENT/PLAN: Mild R foot pain 2/2 acute fracture -Orthopedic surgery; Dr. Kingsley on consultation; recommend stiff-sole cast shoe and weightbearing as tolerated -c/w PT/OT, pain control HTN -resolved hypotension, off midodrine -C/w lasix Chronic Diastolic CHF, not currently in exacerbation -Stable -CXR does not reveal any significant congestion -ECHO ejection fraction 67%, grade 1 diastolic dysfunction, mildly elevated IVC pressures. No pericardial effusion -C/w lasix, not currently on BB -Low salt diet Paroxysmal A fib -Holding BB, c/w Eliquis CKD3 -Cr baseline -s/p IV fluids -Monitor while on lasix CVA (R thalamic 09/2012; L occipital 12/2019) / Carotid stenosis (R at 60-70%) -c/w Eliquis, ASA, Atorvastatin CLL -Dx 2011 -Received therapy 08/2014 with bendamustine and rituximab; completed 10/2014 -Received therapy 09/2019 with obinutuzumab with oral chlorambucil; completed 01/2020 -Patient reports that he follows up the cancer center locally; with Dr. 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) -History of zoster conjunctivitis w/ post-herpetic neuralgia of L orbit (08/2018) -c/w Gabapentin / Valacyclovir Bilateral venous stasis ulcers / Sacral pressure ulcer -Stable Depression -s/p Doxepin (re: orthostatic hypotension) -Currently on seroquel BID -Will need to follow up with Psychiatry Dysphagia - Prior recommendation for mechanical soft / thin liquids Legally blind GERD - c/w Omeprazole DVT prophylaxis - c/w full anticoagulation with Eliquis VS, I&O, 24H, Fishbone Vital Signs/I&O Vital Signs Date Time Temp Pulse Resp B/P (MAP) Pulse Ox O2 Delivery O2 Flow Rate FiO2 11/19/20 14:00 97.8 71 18 138/68 (91) 100 Room Air I&O- Last 24 Hours up to 6 AM 11/19/20 06:00 Intake Total 750 ml Output Total 225 ml Balance 525 ml Current Medications Current Medications Medications (Trade) Dose Ordered Sig/Kristen Route PRN Reason Start Time Stop Time Status Last Admin Dose Admin Acetaminophen (Tylenol Tab) 650 mg Q4HP PRN PO fever/MILD PAIN (PS 1-4) 11/11/20 19:00 11/19/20 08:12 Allopurinol (Zyloprim) 100 mg DAILY PO 11/12/20 09:00 11/19/20 08:07 Apixaban (Eliquis) 2.5 mg BID PO 11/11/20 21:00 11/19/20 08:07 Artificial Tears (Akwa Tears) 2 drop TID OU 11/11/20 21:00 11/19/20 14:59 Aspirin (Ecotrin) 81 mg DAILY PO 11/12/20 09:00 11/19/20 08:06 Atorvastatin Calcium (Lipitor) 80 mg QHS PO 11/12/20 21:00 11/18/20 20:58 Bisacodyl (Dulcolax Suppository) 10 mg DAILYPRN PRN IN CONSTIPATION 11/11/20 19:00 Docusate Sodium (Colace) 100 mg BID PO 11/11/20 21:00 11/19/20 13:58 DC 11/18/20 07:48 Furosemide (Lasix) 20 mg DAILY PO 11/12/20 14:00 11/19/20 08:07 Gabapentin (Neurontin) 100 mg BID PO 11/11/20 21:00 11/12/20 14:04 DC 11/12/20 09:58 Home Med (Med Rec Complete!) ASDIRECTED XX 11/11/20 18:05 11/11/20 18:06 DC Levetiracetam (Keppra) 500 mg BID PO 11/11/20 21:00 11/19/20 08:08 Magnesium Oxide (Mag-Ox) 400 mg BID PO 11/11/20 21:00 11/19/20 13:58 DC 11/19/20 08:08 Magnesium Sulfate (Epsom Salt) add to luke warm water ... DAILY@1700 TOP 11/12/20 17:00 11/18/20 17:33 Midodrine (Proamatine) 2.5 mg 08,12,16 PO 11/12/20 08:00 11/12/20 14:04 DC 11/12/20 12:46 Midodrine (Proamatine) 2.5 mg 08,12,16 PRN PO sBP <120 11/12/20 14:00 11/13/20 11:59 DC 11/13/20 08:52 Montelukast Sodium (Singulair) 10 mg DAILY PO 11/12/20 09:00 11/19/20 08:06 Omeprazole (PriLOSEC) 40 mg DAILY PO 11/12/20 09:00 11/19/20 08:10 Polyethylene Glycol (Miralax) 1 pkt DAILY PRN PO CONSTIPATION 11/11/20 19:00 Pyridostigmine [place] (Mestinon) 15 mg TID PO 11/13/20 12:00 11/19/20 13:02 DC 11/19/20 08:06 Quetiapine Fumarate (SEROquel) 12.5 mg BID PO 11/19/20 21:00 Quetiapine Fumarate (SEROquel) 12.5 mg DAILY PO 11/14/20 11:20 11/19/20 09:55 DC 11/19/20 08:10 Senna (Senokot) 1 tab QHS PO 11/11/20 21:00 11/19/20 13:58 DC 11/16/20 20:21 Triamcinolone Acetonide (Kenalog 0.1% Ointment) 1 dose BID TOP 11/11/20 21:00 4/20/21 08:21 Valacyclovir HCl (Valtrex) 500 mg DAILY PO 11/12/20 09:00 11/19/20 08:08 Vitamin D (Vitamin D) 1,000 units DAILY PO 11/12/20 09:00 11/19/20 08:06 Allergies Coded Allergies: ciclopirox (Verified Allergy, Intermediate, rash, hives, 06/12/19) Bailee Gonzalez MD Nov 19, 2020 17:08
[2020-11-19 19:33] VITALS: BP 110/68
[2020-11-19] MEDS: ATORVASTATIN 20 MG TAB PO SCH (19:45)
[2020-11-20] MEDS: ACETAMINOPHEN TAB 650MG DOSE (2X325MG) PO PRN (01:13)
[2020-11-20 05:30] VITALS: BP 146/67
[2020-11-20 06:21] LABS: BASO # 0.1 10^3/uL (0.0-0.2); BASO % 1.4 % (0.0-1.0); EOS # 0.7 10^3/uL (0.0-0.5); EOS % 12.7 % (0.0-3.0); HEMATOCRIT 29.8 % (42.0-52.0); HEMOGLOBIN 9.2 g/dl (13.5-17.5); LYMPH # 1.9 10^3/uL (1.5-5.0); LYMPH % 32.6 % (24.0-44.0); MEAN CORPUSCULAR HEMOGLOBIN 25.8 pg (27.0-33.0); MEAN CORPUSCULAR HGB CONC 30.9 g/dl (32.0-36.5); MEAN CORPUSCULAR VOLUME 83.5 fl (80.0-96.0); MONO # 0.7 10^3/uL (0.0-0.8); MONO % 11.6 % (2.0-8.0); NEUTROPHILS # 2.4 10^3/uL (1.5-8.5); PLATELET COUNT, AUTOMATED 309 10^3/uL (150-450); RED BLOOD COUNT 3.57 10^6/uL (4.30-6.10); WHITE BLOOD COUNT 5.8 10^3/uL (4.0-10.0)
[2020-11-20 06:45] LABS: BLOOD UREA NITROGEN 14 MG/DL (7-18); CARBON DIOXIDE LEVEL 31 MEQ/L (21-32); CHLORIDE LEVEL 108 MEQ/L (98-107); CREATININE FOR GFR 1.12 MG/DL (0.70-1.30); GLOMERULAR FILTRATION RATE > 60.0 (>35); GLUCOSE, FASTING 83 MG/DL (70-100); POTASSIUM SERUM 3.9 MEQ/L (3.5-5.1); SODIUM LEVEL 142 MEQ/L (136-145)
--- NOTE | 2020-11-20 08:29 | IPNPDOC ---
PM&R Progress Note DATE OF SERVICE: Nov 20, 2020 Roller Turner Progress Note Subjective: Patient seen in his room apologetic for having been inappropriate with nursing the other night stating he doesn't remember what happened. He udnerstands he is on a new antipsychotic which should help to calm him down and decrease his tendency to hallucinate. REVIEW OF SYSTEMS: The following is a completed review of systems and has been reviewed. Review of systems otherwise unremarkable. PAIN: Patient self reports no pain EYES:+low vision EARS, NOSE, & THROAT: No throat pain, or dysphagia, or rhinorrhea CARDIOVASCULAR: Denies chest pain or palpitations PULMONARY: Denies shortness of breath GASTROINTESTINAL: Denies constipation/diarrhea GENITOURINARY: denies dysuria MUSCULOSKELETAL: right foot fracture NEUROLOGICAL:denies paresthesias HEMATOLOGICAL:denies easy bruising SKIN: denies rash PSYCHIATRIC: Unremarkable All other review of systems found to be negative. PHYSICAL EXAMINATION: VITAL SIGNS: Please see below. GENERAL: Pleasant and cooperative. No acute distress. HEENT: Extraocular movements grossly intact. CARDIOVASCULAR: irregular rate and rhythm. No murmurs, rubs, or gallops LUNGS: Clear to auscultation bilaterally. No wheezes. No rhonchi ABDOMEN: Soft, nontender, nondistended. Positive bowel sounds. Normal active bowel sounds NEUROLOGICAL: Alert and oriented x3 Cranial nerves II through XII grossly intact. Sensation grossly intact EXTREMITIES: 5\5 strength bilateral upper extremities. 4\5 strength right lower extremity. 5/5 strength in left lower extremity. bilat LE edema (negative homans)- improving SKIN: no sacral wound noted ASSESSMENT:80-year-old M with past medical history of Afib, diastolic CHF, epilepsy who presents status post injury to right foot with fracture PLAN: 1. 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 Cardiac-chronic diastolic CHF, c/u fluid restriction, daily weights, lasix for LE edema -patient with orthostatics, mostly asymptomatic, however also with elevated Bps, d/c'd midodrine as can worsen HTN, orthostatics did improve on mestinon, however patient is unlikely going to comply with taking additional medications at home, will trial off mestinon for now and monitor for symptoms -Afib on eliquis -HLD-c/u statin -medicine consulted to assist in overall management 4. Resp- monitor for infection, incentive spirometry 5. Onc- hx of CLL, f/u oncology outpatient 6. Renal- CKD, monitor COLLEEN 7. GI ppx- protonix 8. DVT ppx- eliquis 9. Orhto- right 4/5th proximal intraarticular phalangeal fractures with extension into metatarsal- WBAT with stiff-sole cast shoe, ok to use regular shoe for now as patient's swelling has improved and it is confusing for him to don and becoming a barrier to safe discharge- f/u ortho outpatient -epsom salt bath for foot swelling 10. PAin -tylenol 11. Psych- s/p Doxepin for depression due to hypotension monitor and consider alternative medication- patient slightly irritable, with reported history of hallucination, but participating in therapy- c/u low dose Seroquel BID 12. Dispo- goal for Wednesday, patient mostly mod-I and will defer room privileges due to visual impairment making him at risk for falling on unit, but anticipate he will be able to navigate his own home more safely Allergies Coded Allergies: ciclopirox (Verified Allergy, Intermediate, rash, hives, 06/12/19) Vital Signs Vital Signs Date Time Temp Pulse Resp B/P (MAP) Pulse Ox O2 Delivery O2 Flow Rate FiO2 11/20/20 05:30 98.1 62 16 146/67 (93) 99 Room Air Laboratory Data CBC/BMP Laboratory Tests 11/20/20 05:24 Labs 24H Laboratory Tests 2 11/20/20 05:24: Immature Granulocyte % (Auto) 0.7, Neutrophils (%) (Auto) 41.0, Lymphocytes (%) (Auto) 32.6, Monocytes (%) (Auto) 11.6H, Eosinophils (%) (Auto) 12.7H, Basophils (%) (Auto) 1.4H, Neutrophils # (Auto) 2.4, Lymphocytes # (Auto) 1.9, Monocytes # (Auto) 0.7, Eosinophils # (Auto) 0.7H, Basophils # (Auto) 0.1, Nucleated Red Blood Cells % (auto) 0.0, Anion Gap 3L, Glomerular Filtration Rate > 60.0, Calcium Level 8.0L Current Medications Current Medications Current Medications Medications (Trade) Dose Ordered Sig/Kristen Route PRN Reason Start Time Stop Time Status Last Admin Dose Admin Acetaminophen (Tylenol Tab) 650 mg Q4HP PRN PO fever/MILD PAIN (PS 1-4) 11/11/20 19:00 11/20/20 01:13 Allopurinol (Zyloprim) 100 mg DAILY PO 11/12/20 09:00 11/19/20 08:07 Apixaban (Eliquis) 2.5 mg BID PO 11/11/20 21:00 11/19/20 19:44 Artificial Tears (Akwa Tears) 2 drop TID OU 11/11/20 21:00 11/19/20 19:51 Aspirin (Ecotrin) 81 mg DAILY PO 11/12/20 09:00 11/19/20 08:06 Atorvastatin Calcium (Lipitor) 80 mg QHS PO 11/12/20 21:00 11/19/20 19:45 Bisacodyl (Dulcolax Suppository) 10 mg DAILYPRN PRN [place] CONSTIPATION 11/11/20 19:00 Docusate Sodium (Colace) 100 mg BID PO 11/11/20 21:00 11/19/20 13:58 DC 11/18/20 07:48 Furosemide (Lasix) 20 mg DAILY PO 11/12/20 14:00 11/19/20 08:07 Gabapentin (Neurontin) 100 mg BID PO 11/11/20 21:00 11/12/20 14:04 DC 11/12/20 09:58 Home Med (Med Rec Complete!) ASDIRECTED XX 11/11/20 18:05 11/11/20 18:06 DC Levetiracetam (Keppra) 500 mg BID PO 11/11/20 21:00 11/19/20 19:45 Magnesium Oxide (Mag-Ox) 400 mg BID PO 11/11/20 21:00 11/19/20 13:58 DC 11/19/20 08:08 Magnesium Sulfate (Epsom Salt) add to luke warm water ... DAILY@1700 TOP 11/12/20 17:00 11/18/20 17:33 Midodrine (Proamatine) 2.5 mg 08,12,16 PO 11/12/20 08:00 11/12/20 14:04 DC 11/12/20 12:46 Midodrine (Proamatine) 2.5 mg 08,,16 PRN PO sBP <120 11/12/20 14:00 11/13/20 11:59 DC 11/13/20 08:52 Montelukast Sodium (Singulair) 10 mg DAILY PO 11/12/20 09:00 11/19/20 08:06 Omeprazole (PriLOSEC) 40 mg DAILY PO 11/12/20 09:00 11/19/20 08:10 Polyethylene Glycol (Miralax) 1 pkt DAILY PRN PO CONSTIPATION 11/11/20 19:00 Pyridostigmine [place] (Mestinon) 15 mg TID PO 11/13/20 12:00 11/19/20 13:02 DC 11/19/20 08:06 Quetiapine Fumarate (SEROquel) 12.5 mg BID PO 11/19/20 21:00 11/19/20 19:45 Quetiapine Fumarate (SEROquel) 12.5 mg DAILY PO 11/14/20 11:20 11/19/20 09:55 DC 11/19/20 08:10 Senna (Senokot) 1 tab QHS PO 11/11/20 21:00 11/19/20 13:58 DC 11/16/20 20:21 Triamcinolone Acetonide (Kenalog 0.1% Ointment) 1 dose BID TOP 11/11/20 21:00 11/19/20 19:51 Valacyclovir HCl (Valtrex) 500 mg DAILY PO 11/12/20 09:00 11/19/20 08:08 Vitamin D (Vitamin D) 1,000 units DAILY PO 11/12/20 09:00 11/19/20 08:06 RAMY KOCH MD Nov 20, 2020 08:29
[2020-11-20] MEDS: OMEPRAZOLE 20 MG CAP PO SCH (09:13)
[2020-11-20] MEDS: ASPIRIN 81MG ENTERIC TABLET PO SCH (09:13)
[2020-11-20] MEDS: MONTELUKAST 10 MG TAB PO SCH (09:13)
[2020-11-20] MEDS: QUEtiapine FUMARATE 12.5 MG HALF-TAB PO SCH ×2 (09:13→20:24)
[2020-11-20] MEDS: POLYVINYL ALCOHOL OPHTH SOLN 15 ML(LIQUITEARS) OU SCH ×3 (09:14→20:26)
[2020-11-20] MEDS: allopurinoL 100 MG TAB PO SCH (09:14)
[2020-11-20] MEDS: APIXABAN 2.5 MG TAB (ELIQUIS) PO SCH ×2 (09:14→20:25)
[2020-11-20] MEDS: FUROSEMIDE 20 MG TAB PO SCH (09:14)
[2020-11-20] MEDS: levETIRAcetam 250MG TABLET (KEPPRA) PO SCH ×2 (09:14→20:25)
[2020-11-20] MEDS: VITAMIN D 1,000 INTERNATIONAL UNITS TABLET PO SCH (09:14)
[2020-11-20] MEDS: valACYclovir HCL 500 MG TAB PO SCH (09:14)
[2020-11-20] MEDS: TRIAMCINOLONE ACET 0.1% OINTMENT 15 GM TOP SCH ×2 (09:15→20:26)
[2020-11-20] MEDS: REMEDY PHYTOPLEX Z-GUARD PASTE 113GM TUBE (FROM STOREROOM PRODUCT) TOP SCH ×3 (09:15→20:26)
[2020-11-20 14:00] VITALS: BP 134/63
[2020-11-20] MEDS: MAGNESIUM SULFATE GRANULES(EPSOM SALT) 1LB TOP SCH (16:50)
[2020-11-20 20:10] VITALS: BP 111/58
[2020-11-20] MEDS: ATORVASTATIN 20 MG TAB PO SCH (20:25)
[2020-11-21 06:00] VITALS: BP 135/65
[2020-11-21] MEDS ORDERED: VALA500T5 PO (07:36)
[2020-11-21] MEDS ORDERED: OMEP-221 PO (07:36)
[2020-11-21] MEDS ORDERED: KEPP1TAB PO (07:36)
[2020-11-21] MEDS ORDERED: MONT10TA10 PO (07:36)
[2020-11-21] MEDS ORDERED: ATOR80TA59 PO (07:36)
[2020-11-21] MEDS ORDERED: ALLO10TA PO (07:36)
[2020-11-21] MEDS ORDERED: VITAD1000T PO (07:36)
[2020-11-21] MEDS ORDERED: QUET25TA3 PO (07:36)
[2020-11-21] MEDS ORDERED: FURO20TA2 PO (07:36)
[2020-11-21] MEDS ORDERED: ELIQ2.5T PO (07:36)
[2020-11-21] MEDS ORDERED: ASPI-551 PO (07:36)
[2020-11-21] MEDS: ASPIRIN 81MG ENTERIC TABLET PO SCH (09:05)
[2020-11-21] MEDS: REMEDY PHYTOPLEX Z-GUARD PASTE 113GM TUBE (FROM STOREROOM PRODUCT) TOP SCH ×3 (09:05→20:54)
[2020-11-21] MEDS: valACYclovir HCL 500 MG TAB PO SCH (09:05)
[2020-11-21] MEDS: VITAMIN D 1,000 INTERNATIONAL UNITS TABLET PO SCH (09:05)
[2020-11-21] MEDS: OMEPRAZOLE 20 MG CAP PO SCH (09:05)
[2020-11-21] MEDS: QUEtiapine FUMARATE 12.5 MG HALF-TAB PO SCH ×2 (09:05→20:52)
[2020-11-21] MEDS: MONTELUKAST 10 MG TAB PO SCH (09:06)
[2020-11-21] MEDS: ACETAMINOPHEN TAB 650MG DOSE (2X325MG) PO PRN ×2 (09:06→20:52)
[2020-11-21] MEDS: APIXABAN 2.5 MG TAB (ELIQUIS) PO SCH ×2 (09:06→20:52)
[2020-11-21] MEDS: FUROSEMIDE 20 MG TAB PO SCH (09:06)
[2020-11-21] MEDS: levETIRAcetam 250MG TABLET (KEPPRA) PO SCH ×2 (09:06→20:52)
[2020-11-21] MEDS: allopurinoL 100 MG TAB PO SCH (09:06)
[2020-11-21] MEDS: POLYVINYL ALCOHOL OPHTH SOLN 15 ML(LIQUITEARS) OU SCH ×3 (09:08→20:52)
[2020-11-21] MEDS: TRIAMCINOLONE ACET 0.1% OINTMENT 15 GM TOP SCH ×2 (09:10→20:53)
--- NOTE | 2020-11-21 10:43 | IPNPDOC ---
PM&R Progress Note Wrapper Hands Sprayer Progress Note DATE OF ADMISSION: Nov 11, 2020 at 17:59 INPATIENT REHABILITATION ADMISSION DAY: # SUBJECTIVE: Patient is a -year-old with . ALLERGIES: See Below MEDICATIONS: Reviewed, see below. OBJECTIVE: VITAL SIGNS: Please see below. PHYSICAL EXAMINATION: GENERAL: [Cachectic, well developed, sitting up in bed, no acute distress]. HEENT: [Normocephalic, atraumatic]. [No facial droop]. [Poor dentition, missing teeth. PERRL, EOMI]. CARDIOVASCULAR: [S1, S2, irregular rate]. [No lower limb edema or calf tenderness]. LUNGS: [Decreased breath sounds, coarse throughout]. ABDOMEN: [Soft, nontender, nondistended. Normoactive bowel sounds throughout]. MUSCULOSKELETAL: MMT: /5 strength proximally bilateral shoulder abduction, forward flexion and bilateral hip flexion. /5 strength bilateral elbow flexion, knee flexion, /5 bilateral elbow extension and knee extension. /5 retort engineer, dorsiflexion, plantar flexion. NEUROLOGICAL: [Alert and oriented times three]. [Answers all question appropriately]. SKIN: . LABORATORY DATA: Reviewed. Please see below. MICROBIOLOGY: Please see below. IMAGING: ASSESSMENT AND PLAN: 1. . 2. . 3. . TIME SPENT: Chart Review, examination and documentation minutes. Allergies Coded Allergies: ciclopirox (Verified Allergy, Intermediate, rash, hives, 06/12/19) Vital Signs Vital Signs Date Time Temp Pulse Resp B/P (MAP) Pulse Ox O2 Delivery O2 Flow Rate FiO2 11/21/20 06:00 97.0 78 18 135/65 (88) 99 Room Air Current Medications Current Medications Current Medications Medications (Trade) Dose Ordered Sig/Kristen Route PRN Reason Start Time Stop Time Status Last Admin Dose Admin Acetaminophen (Tylenol Tab) 650 mg Q4HP PRN PO fever/MILD PAIN (PS 1-4) 11/11/20 19:00 11/21/20 09:06 Allopurinol (Zyloprim) 100 mg DAILY PO 11/12/20 09:00 11/21/20 09:06 Apixaban (Eliquis) 2.5 mg BID PO 11/11/20 21:00 11/21/20 09:06 Artificial Tears (Akwa Tears) 2 drop TID OU 11/11/20 21:00 11/21/20 09:08 Aspirin (Ecotrin) 81 mg DAILY PO 11/12/20 09:00 11/21/20 09:05 Atorvastatin Calcium (Lipitor) 80 mg QHS PO 11/12/20 21:00 11/20/20 20:25 Bisacodyl (Dulcolax Suppository) 10 mg DAILYPRN PRN [place] CONSTIPATION 11/11/20 19:00 Docusate Sodium (Colace) 100 mg BID PO 11/11/20 21:00 11/19/20 13:58 DC 11/18/20 07:48 Furosemide (Lasix) 20 mg DAILY PO 11/12/20 14:00 11/21/20 09:06 Gabapentin (Neurontin) 100 mg BID PO 11/11/20 21:00 11/12/20 14:04 DC 11/12/20 09:58 Home Med (Med Rec Complete!) ASDIRECTED XX 11/11/20 18:05 11/11/20 18:06 DC Levetiracetam (Keppra) 500 mg BID PO 11/11/20 21:00 11/21/20 09:06 Magnesium Oxide (Mag-Ox) 400 mg BID PO 11/11/20 21:00 11/19/20 13:58 DC 11/19/20 08:08 Magnesium Sulfate (Epsom Salt) add to luke warm water ... DAILY@1700 TOP 11/12/20 17:00 11/20/20 16:50 Midodrine (Proamatine) 2.5 mg 08,12,16 PO 11/12/20 08:00 11/12/20 14:04 DC 11/12/20 12:46 Midodrine (Proamatine) 2.5 mg 08,12,16 PRN PO sBP <120 11/12/20 14:00 11/13/20 11:59 DC 11/13/20 08:52 Montelukast Sodium (Singulair) 10 mg DAILY PO 11/12/20 09:00 11/21/20 09:06 Omeprazole (PriLOSEC) 40 mg DAILY PO 11/12/20 09:00 11/21/20 09:05 Polyethylene Glycol (Miralax) 1 pkt DAILY PRN PO CONSTIPATION 11/11/20 19:00 Pyridostigmine [place] (Mestinon) 15 mg TID PO 11/13/20 12:00 11/19/20 13:02 DC 11/19/20 08:06 Quetiapine Fumarate (SEROquel) 12.5 mg BID PO 11/19/20 21:00 11/21/20 09:05 Quetiapine Fumarate (SEROquel) 12.5 mg DAILY PO 11/14/20 11:20 11/19/20 09:55 DC 11/19/20 08:10 Senna (Senokot) 1 tab QHS PO 11/11/20 21:00 11/19/20 13:58 DC 11/16/20 20:21 Triamcinolone Acetonide (Kenalog 0.1% Ointment) 1 dose BID TOP 11/11/20 21:00 11/21/20 09:10 Valacyclovir HCl (Valtrex) 500 mg DAILY PO 11/12/20 09:00 11/21/20 09:05 Vitamin D (Vitamin D) 1,000 units DAILY PO 11/12/20 09:00 11/21/20 09:05 RAMY KOCH MD Nov 21, 2020 10:43
[2020-11-21 14:00] VITALS: BP 113/59
[2020-11-21] MEDS: MAGNESIUM SULFATE GRANULES(EPSOM SALT) 1LB TOP SCH (17:54)
[2020-11-21 20:15] VITALS: BP 144/65
[2020-11-21] MEDS: ATORVASTATIN 20 MG TAB PO SCH (20:52)
[2020-11-22 06:23] VITALS: BP 139/90
[2020-11-22] MEDS: OMEPRAZOLE 20 MG CAP PO SCH (08:53)
[2020-11-22] MEDS: ASPIRIN 81MG ENTERIC TABLET PO SCH (08:53)
[2020-11-22] MEDS: APIXABAN 2.5 MG TAB (ELIQUIS) PO SCH (08:53)
[2020-11-22] MEDS: MONTELUKAST 10 MG TAB PO SCH (08:53)
[2020-11-22] MEDS: FUROSEMIDE 20 MG TAB PO SCH (08:54)
[2020-11-22] MEDS: valACYclovir HCL 500 MG TAB PO SCH (08:54)
[2020-11-22] MEDS: VITAMIN D 1,000 INTERNATIONAL UNITS TABLET PO SCH (08:54)
[2020-11-22] MEDS: QUEtiapine FUMARATE 12.5 MG HALF-TAB PO SCH (08:54)
[2020-11-22] MEDS: allopurinoL 100 MG TAB PO SCH (08:55)
[2020-11-22] MEDS: levETIRAcetam 250MG TABLET (KEPPRA) PO SCH (08:55)
[2020-11-22] MEDS: TRIAMCINOLONE ACET 0.1% OINTMENT 15 GM TOP SCH (08:56)
[2020-11-22] MEDS: POLYVINYL ALCOHOL OPHTH SOLN 15 ML(LIQUITEARS) OU SCH (08:56)
[2020-11-22] MEDS: REMEDY PHYTOPLEX Z-GUARD PASTE 113GM TUBE (FROM STOREROOM PRODUCT) TOP SCH (08:56)
[2020-11-23 20:09] LABS: LEVETIRACETAM (KEPPRA) 24.3 ug/mL (10.0-40.0); VITAMIN B1 LEVEL WHOLE BLOOD 84.2 nmol/L (66.5-200.0)
== END 2020-11-22 10:05 | disposition home health service (06) | DRG 560 ==
LOC: M PM&R 17:59
PROVIDERS: ADMIT Physical Medicine & Rehabilitation; ATTEND Physical Medicine & Rehabilitation
DX: S92.511D Displaced fracture of proximal phalanx of right lesser toe(s), subsequent encounter for fracture with routine healing (principal); I50.32 Chronic diastolic (congestive) heart failure; I13.0 Hypertensive heart and chronic kidney disease with heart failure and stage 1 through stage 4 chronic kidney disease, or unspecified chronic kidney disease; B00.53 Herpesviral conjunctivitis; B02.29 Other postherpetic nervous system involvement; C91.90 Lymphoid leukemia, unspecified not having achieved remission; I48.0 Paroxysmal atrial fibrillation; I69.391 Dysphagia following cerebral infarction; R13.10 Dysphagia, unspecified; N18.30 Chronic kidney disease, stage 3 unspecified; F03.90 Unspecified dementia, unspecified severity, without behavioral disturbance, psychotic disturbance, mood disturbance, and anxiety; G40.909 Epilepsy, unspecified, not intractable, without status epilepticus; I65.21 Occlusion and stenosis of right carotid artery; H54.8 Legal blindness, as defined in USA; Z66 Do not resuscitate; M48.02 Spinal stenosis, cervical region; I95.9 Hypotension, unspecified; R41.0 Disorientation, unspecified; F32.9 Major depressive disorder, single episode, unspecified; W22.8XXD Striking against or struck by other objects, subsequent encounter; Y92.9 Unspecified place or not applicable; Z74.09 Other reduced mobility; Z74.1 Need for assistance with personal care; Z85.828 Personal history of other malignant neoplasm of skin; Z90.49 Acquired absence of other specified parts of digestive tract; Z87.891 Personal history of nicotine dependence; Z79.01 Long term (current) use of anticoagulants; Z79.82 Long term (current) use of aspirin; Z79.899 Other long term (current) drug therapy; Z88.8 Allergy status to other drugs, medicaments and biological substances

== ENCOUNTER → 2020-11-29 | Outpatient (CLI) | payer MEDICARE ==
[~2020-11-29] MED LIST changes: +ALLO10TA PO; +ASPI-551 PO; +QUET25TA3 PO; +VITAD1000T PO
--- NOTE | 2020-11-29 12:49 | REP ---
INDICATION: PAIN. COMPARISON: Comparison right foot radiographs are from 20 February 2018.. TECHNIQUE: Four views of the right foot. FINDINGS: Four views of the right foot demonstrate old posttraumatic deformity of the distal and of the 5th metatarsal. There is scratch there are acute fractures involving the proximal phalanx of the 5th toe and the proximal phalanx of the 4th toe. The 4th toe proximal phalangeal fracture is an intra-articular avulsion fracture of its medial segment. There is 3 mm of medial displacement. The 5th proximal phalangeal fracture shows slight impaction. There is a a chip fracture of the medial aspect of the 5th proximal phalanx as well. Chronic arthropathy changes are seen at the 2nd and 3rd MTP joints. Subcortical cyst formation is seen in the distal end of the 3rd metatarsal. There is some flattening and spur formation at the distal end of the 2nd metatarsal. These are chronic changes. Plantar calcaneal spurring is also noted. IMPRESSION: Acute fractures of the proximal 4th and 5th phalanges which are intra-articular. Old posttraumatic deformity distal 5th metatarsal. Chronic arthropathy 2nd and 3rd MTP joints. <Electronically signed by Cali Elizabeth > 11/29/20 0055
== END ==
LOC: M SOG 11:05
PROVIDERS: ATTEND Orthopaedic Surgery Sports Medicine
DX: M25.571 Pain in right ankle and joints of right foot (principal)

== ENCOUNTER → 2021-01-22 | Outpatient (REF) | payer MEDICARE ==
[~2021-01-22] MED LIST changes: -DOXY100C37 PO; +DOXY1CAP62 PO; +OMEP40CA4 PO; -OMEP40CA97 PO
== END ==
LOC: M SFHCADAM 12:16
PROVIDERS: ATTEND Physician Assistant
DX: C91.90 Lymphoid leukemia, unspecified not having achieved remission (principal); N18.31 Chronic kidney disease, stage 3a; D64.9 Anemia, unspecified; G40.909 Epilepsy, unspecified, not intractable, without status epilepticus

== ENCOUNTER → 2021-01-24 | Outpatient (REF) | payer MEDICARE | LOC: M SFHCADAM 12:00 | PROVIDERS: ATTEND Physician Assistant | DX: C91.90 Lymphoid leukemia, unspecified not having achieved remission (principal); N18.31 Chronic kidney disease, stage 3a; D64.9 Anemia, unspecified; G40.909 Epilepsy, unspecified, not intractable, without status epilepticus; Z53.8 Procedure and treatment not carried out for other reasons ==

== ENCOUNTER → 2021-01-29 | Outpatient (CLI) | payer MEDICARE ==
[~2021-01-29] MED LIST changes: +SODIUM CHLORIDE 0.9% INJ 10 ML SYR IV PRN
[2021-01-29 11:39] LABS: BASO % 0.4 % (0.0-1.0); EOS # 0.7 10^3/uL (0.0-0.5); EOS % 13.7 % (0.0-3.0); HEMATOCRIT 33.3 % (42.0-52.0); HEMOGLOBIN 10.1 g/dl (13.5-17.5); LYMPH # 1.2 10^3/uL (1.5-5.0); MEAN CORPUSCULAR HEMOGLOBIN 25.7 pg (27.0-33.0); MEAN CORPUSCULAR HGB CONC 30.3 g/dl (32.0-36.5); MEAN CORPUSCULAR VOLUME 84.7 fl (80.0-96.0); MONO # 0.6 10^3/uL (0.0-0.8); NEUTROPHILS # 2.7 10^3/uL (1.5-8.5); PLATELET COUNT, AUTOMATED 252 10^3/uL (150-450); RED BLOOD COUNT 3.93 10^6/uL (4.30-6.10); WHITE BLOOD COUNT 5.3 10^3/uL (4.0-10.0)
[2021-01-29 12:04] LABS: ALBUMIN 3.7 GM/DL (3.2-5.2); BILIRUBIN,TOTAL 0.5 MG/DL (0.2-1.0); CALCIUM LEVEL 7.9 MG/DL (8.8-10.2); CREATININE FOR GFR 1.38 MG/DL (0.70-1.30); GLOMERULAR FILTRATION RATE 52.8 (>35); PERCENT SATURATION 8.8 % (19.7-50.0); POTASSIUM SERUM 3.3 MEQ/L (3.5-5.1); TOTAL PROTEIN 6.3 GM/DL (6.4-8.2)
== END ==
LOC: M ONCM 10:34
PROVIDERS: ATTEND Physician Assistant
DX: C91.90 Lymphoid leukemia, unspecified not having achieved remission (principal); N18.31 Chronic kidney disease, stage 3a; D64.9 Anemia, unspecified; G40.909 Epilepsy, unspecified, not intractable, without status epilepticus
CPT/HCPCS: 80053; 80180; 82728; 83550; 84550; 85025; J1642

== ENCOUNTER 2021-02-03 05:59 | Emergency (ER) | payer MEDICARE ==
[~2021-02-03] VITALS: Ht 172.7 cm; Wt 72.7 kg
[~2021-02-03 05:59] MED LIST changes: -SODIUM CHLORIDE 0.9% INJ 10 ML SYR IV PRN
[2021-02-03] MEDS ORDERED: POTA1TAB14 PO (06:12)
[2021-02-03] MEDS ORDERED: FURO40TA2 PO (06:12)
[2021-02-03] MEDS ORDERED: DOXE10CA PO (06:12)
[2021-02-03] MEDS ORDERED: GABA-1171 PO (06:12)
[2021-02-03] MEDS ORDERED: METO1TAB7 PO (06:12)
[2021-02-03] MEDS ORDERED: AMLO1TAB24 PO (06:12)
[2021-02-03] MEDS ORDERED: LEVE500T5 PO (06:12)
--- NOTE | 2021-02-03 06:48 | REPVR ---
PROCEDURE INFORMATION: Exam: CT Head Without Contrast Exam date and time: 02/03/2021 6:04 AM Age: 80 years old Clinical indication: Injury or trauma; Fall; Blunt trauma (contusions or hematomas) TECHNIQUE: Imaging protocol: Computed tomography of the head without contrast. Radiation optimization: All CT scans at this facility use at least one of these dose optimization techniques: automated exposure control; mA and/or kV adjustment per patient size (includes targeted exams where dose is matched to clinical indication); or iterative reconstruction. COMPARISON: CT Head without contrast 07/02/2020 8:49 AM FINDINGS: Brain: There is no acute intracranial hemorrhage or mass effect. Moderate diffuse volume loss is within the range of normal for patient age. There are small vessel ischemic changes within the periventricular and subcortical white matter, but the normal pope-white matter delineation is maintained. There is left parietooccipital encephalomalacia. Cerebral ventricles: Prominence of the ventricular system is commensurate with volume loss. There is a cavum septum pellucidum, a normal anatomic variant. Paranasal sinuses: Visualized sinuses are unremarkable. No fluid levels. Mastoid air cells: Visualized mastoid air cells are well aerated. Bones/joints: Unremarkable. No acute fracture. Soft tissues: Unremarkable. IMPRESSION: No acute hemorrhage or calvarial fracture. Electronically signed by: Katlin Frederick On 02/03/2021 06:48:06 AM
--- NOTE | 2021-02-03 06:53 | REPVR ---
PROCEDURE INFORMATION: Exam: CT Cervical Spine Without Contrast Exam date and time: 02/03/2021 6:04 AM Age: 80 years old Clinical indication: Injury or trauma; Fall; Blunt trauma; Prior surgery; Surgery date: 6+ months TECHNIQUE: Imaging protocol: Computed tomography images of the cervical spine without contrast. Radiation optimization: All CT scans at this facility use at least one of these dose optimization techniques: automated exposure control; mA and/or kV adjustment per patient size (includes targeted exams where dose is matched to clinical indication); or iterative reconstruction. COMPARISON: None available. FINDINGS: Bones/joints: Ventral fixation plate and screws are noted at C3, C4, C5 and C6, with intervertebral spacer material. There are ventral fixation screws at C6 and C7. There is increased lucency surrounding the screws, worrisome for loosening. There is minimal anterolisthesis of C7 with respect to T1. Normal vertebral body alignment is otherwise preserved. There is minimal superior endplate depression at T2 of indeterminate acuity. Discs/Spinal canal/Neural foramina: There is multilevel dorsal spondylitic ridging and facet hypertrophy. Changes contribute to multilevel moderate to severe neural foraminal narrowing. Lungs: Lung apices are normal. Soft tissues: Unremarkable. IMPRESSION: 1. No acute fracture. 2. Increased lucency surrounding C6/7 ventral fixation screws may reflect loosening. Electronically signed by: Katlin Frederick On 02/03/2021 06:53:16 AM
[2021-02-03 07:15] VITALS: BP 120/63
[2021-02-03] MEDS ORDERED: SODIUM CHLORIDE 0.9% INJ 10 ML SYR IV PRN (07:30)
[2021-02-03 07:51] LABS: BASO % 0.7 % (0.0-1.0); EOS # 0.5 10^3/uL (0.0-0.5); EOS % 8.4 % (0.0-3.0); HEMATOCRIT 34.4 % (42.0-52.0); HEMOGLOBIN 10.5 g/dl (13.5-17.5); LYMPH # 0.8 10^3/uL (1.5-5.0); LYMPH % 14.7 % (24.0-44.0); MEAN CORPUSCULAR HEMOGLOBIN 25.9 pg (27.0-33.0); MEAN CORPUSCULAR HGB CONC 30.5 g/dl (32.0-36.5); MEAN CORPUSCULAR VOLUME 84.9 fl (80.0-96.0); MONO # 0.9 10^3/uL (0.0-0.8); MONO % 14.9 % (2.0-8.0); NEUTROPHILS # 3.4 10^3/uL (1.5-8.5); NEUTROPHILS % 60.1 % (36.0-66.0); PLATELET COUNT, AUTOMATED 239 10^3/uL (150-450); RED BLOOD COUNT 4.05 10^6/uL (4.30-6.10); WHITE BLOOD COUNT 5.7 10^3/uL (4.0-10.0)
[2021-02-03 08:25] LABS: ALBUMIN 3.7 GM/DL (3.2-5.2); ALT/SGPT 16 U/L (12-78); BILIRUBIN,DIRECT 0.1 MG/DL (0.0-0.2); BILIRUBIN,TOTAL 0.4 MG/DL (0.2-1.0); BLOOD UREA NITROGEN 18 MG/DL (7-18); CALCIUM LEVEL 8.1 MG/DL (8.8-10.2); CARBON DIOXIDE LEVEL 31 MEQ/L (21-32); CHLORIDE LEVEL 108 MEQ/L (98-107); CK-MB VALUE MASS < 1.0 NG/ML (<3.6); CPK CREATINE PHOSPHOKINASE 81 U/L (39-308); CREATININE FOR GFR 1.43 MG/DL (0.70-1.30); ETHYL ALCOHOL (ETHANOL) < 0.003 % (0.000-0.010); FREE T4 0.83 NG/DL (0.76-1.46); GLOMERULAR FILTRATION RATE 50.7 (>35); GLUCOSE, FASTING 92 MG/DL (70-100); MB/CK RELATIVE INDEX 1.23 (< OR =4); POTASSIUM SERUM 3.2 MEQ/L (3.5-5.1); SODIUM LEVEL 143 MEQ/L (136-145); TOTAL PROTEIN 6.3 GM/DL (6.4-8.2); TROPONIN I < 0.02 NG/ML (< 0.10)
--- NOTE | 2021-02-03 18:53 | ECGEPIP ---
[facility] - ED Test Date: 2021-02-03 Pat Name: LIN KERR Department: Room: - Gender: Male Geriatric Aide: AYDEE : 1940 Requested By: KELSEY JUNG PA-C. Order Number: [id number] Reading MD: Mulu Awan Measurements Intervals [place] Rate: 68 P: 81 [place]: 186 QRS: 10 QRSD: 86 T: 42 QT: 424 QTc: 450 Interpretive Statements Normal sinus rhythm with sinus arrhythmia Nonspecific ST T wave changes 11/09/[address] T wave changes Electronically Signed on 02-03-2021 18:53:18 EDT by Mulu Awan
--- NOTE | 2021-02-05 11:06 | ED PDOC ---
Post-Departure Follow-Up ct c spine faxed for formal report for Mulu Christina MD Feb 05, 2021 11:05
== END 2021-02-03 12:20 | disposition home or self-care (01) ==
LOC: M ED 05:59
DX: F03.90 Unspecified dementia, unspecified severity, without behavioral disturbance, psychotic disturbance, mood disturbance, and anxiety (principal); S09.90XA Unspecified injury of head, initial encounter; W18.39XA Other fall on same level, initial encounter; Y92.89 Other specified places as the place of occurrence of the external cause; I50.30 Unspecified diastolic (congestive) heart failure; I11.0 Hypertensive heart disease with heart failure; E78.5 Hyperlipidemia, unspecified; G40.909 Epilepsy, unspecified, not intractable, without status epilepticus; K21.9 Gastro-esophageal reflux disease without esophagitis; N40.0 Benign prostatic hyperplasia without lower urinary tract symptoms; E55.9 Vitamin D deficiency, unspecified; C91.10 Chronic lymphocytic leukemia of B-cell type not having achieved remission; Z92.21 Personal history of antineoplastic chemotherapy; Z79.899 Other long term (current) drug therapy; Z79.01 Long term (current) use of anticoagulants; Z88.8 Allergy status to other drugs, medicaments and biological substances; Z87.891 Personal history of nicotine dependence

== ENCOUNTER 2021-02-07 10:29 | Emergency (ER) | payer MEDICARE ==
[~2021-02-07 10:29] MED LIST changes: -CEFD1CAP8 PO; +CEFD300C41 PO; +DOXY-443 PO; -DOXY1CAP62 PO; -KLOR10TA76 PO; +LEVE500T5 PO; -MONT10TA10 PO; +MONT10TA97 PO; -OMEP-221 PO; +OMEP40CA5 PO; +POTA-136 PO; +POTA-151 PO; -POTA10TA14 PO; +POTA1TAB14 PO; +POTA1TAB24 PO; -POTA20TA6 PO; +QUET1TAB17 PO; -QUET25TA3 PO
[2021-02-07 13:38] LABS: BASO % 0.5 % (0.0-1.0); EOS # 0.7 10^3/uL (0.0-0.5); EOS % 10.5 % (0.0-3.0); HEMATOCRIT 33.8 % (42.0-52.0); HEMOGLOBIN 10.4 g/dl (13.5-17.5); LYMPH % 15.5 % (24.0-44.0); MEAN CORPUSCULAR HGB CONC 30.8 g/dl (32.0-36.5); MEAN CORPUSCULAR VOLUME 84.5 fl (80.0-96.0); MONO # 0.8 10^3/uL (0.0-0.8); MONO % 12.6 % (2.0-8.0); NEUTROPHILS # 3.7 10^3/uL (1.5-8.5); NEUTROPHILS % 60.1 % (36.0-66.0); PLATELET COUNT, AUTOMATED 277 10^3/uL (150-450); WHITE BLOOD COUNT 6.2 10^3/uL (4.0-10.0)
[2021-02-07] MEDS ORDERED: VALA1TAB5 PO (14:30)
[2021-02-07 14:32] VITALS: BP 136/71
[2021-02-20] MEDS ORDERED: OMEP40CA5 PO (09:52)
[2021-02-25] MEDS ORDERED: LISI2.5T9 PO (14:03)
[2021-02-25] MEDS ORDERED: DOK1CAP4 PO (14:03)
[2021-03-05] MEDS ORDERED: QUET1TAB17 PO (09:04)
== END 2021-02-07 15:37 | disposition home or self-care (01) ==
LOC: M ED 10:29
DX: B02.30 Zoster ocular disease, unspecified (principal); I11.0 Hypertensive heart disease with heart failure; I50.9 Heart failure, unspecified; C91.10 Chronic lymphocytic leukemia of B-cell type not having achieved remission; G40.909 Epilepsy, unspecified, not intractable, without status epilepticus; K21.9 Gastro-esophageal reflux disease without esophagitis; N40.0 Benign prostatic hyperplasia without lower urinary tract symptoms; Z92.21 Personal history of antineoplastic chemotherapy; Z88.8 Allergy status to other drugs, medicaments and biological substances; Z87.891 Personal history of nicotine dependence; Z79.01 Long term (current) use of anticoagulants; Z79.899 Other long term (current) drug therapy

== ENCOUNTER 2021-02-11 12:35 | Emergency (ER) | payer MEDICARE ==
[~2021-02-11] VITALS: Ht 162.6 cm; Wt 81.8 kg
[~2021-02-11 12:35] MED LIST changes: +CEFD1CAP8 PO; -CEFD300C41 PO; -DOXY-443 PO; +DOXY1CAP62 PO; +KLOR10TA76 PO; +MONT10TA10 PO; -MONT10TA97 PO; +OMEP-221 PO; -OMEP40CA5 PO; -POTA-136 PO; -POTA-151 PO; +POTA10TA14 PO; -POTA1TAB24 PO; +POTA20TA6 PO; -QUET1TAB17 PO; +QUET25TA3 PO; +VALA1TAB5 PO
[2021-02-11 16:45] VITALS: BP 127/63
--- NOTE | 2021-02-11 17:17 | REP ---
INDICATION: swelling/ calf pain. COMPARISON: None. TECHNIQUE: Bilateral lower extremity duplex venous scanning is performed from the groin to the ankle level. FINDINGS: The deep veins are anechoic and fully compressible from the groin to the popliteal fossa in the left and right lower extremity. Color flow imaging is homogeneous. Spectral Doppler interrogation demonstrates intact respiratory variation in flow and normal manual augmentation of flow. There is no evidence of deep vein thrombosis in the femoropopliteal veins. There is no evidence of deep vein thrombosis in the visualized calf veins. Significant soft tissue swelling of the lower legs bilaterally is seen. IMPRESSION: No evidence of DVT in the femoropopliteal veins. No DVT in the visible portions of the calf veins. <Electronically signed by Cali Elizabeth > 02/11/21 [id number]
--- NOTE | 2021-02-11 17:24 | ECGEPIP ---
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
[2021-02-11 17:38] LABS: ALBUMIN 3.6 GM/DL (3.2-5.2); BILIRUBIN,DIRECT 0.1 MG/DL (0.0-0.2); BILIRUBIN,TOTAL 0.3 MG/DL (0.2-1.0); TOTAL PROTEIN 6.1 GM/DL (6.4-8.2)
[2021-02-11 17:42] LABS: BASO % 0.3 % (0.0-1.0); EOS # 0.6 10^3/uL (0.0-0.5); EOS % 8.6 % (0.0-3.0); HEMATOCRIT 31.4 % (42.0-52.0); HEMOGLOBIN 9.6 g/dl (13.5-17.5); LYMPH # 1.1 10^3/uL (1.5-5.0); LYMPH % 16.8 % (24.0-44.0); MEAN CORPUSCULAR HEMOGLOBIN 26.1 pg (27.0-33.0); MEAN CORPUSCULAR HGB CONC 30.6 g/dl (32.0-36.5); MEAN CORPUSCULAR VOLUME 85.3 fl (80.0-96.0); MONO # 0.8 10^3/uL (0.0-0.8); MONO % 12.1 % (2.0-8.0); NEUTROPHILS # 3.9 10^3/uL (1.5-8.5); NEUTROPHILS % 61.1 % (36.0-66.0); PLATELET COUNT, AUTOMATED 243 10^3/uL (150-450); RED BLOOD COUNT 3.68 10^6/uL (4.30-6.10); WHITE BLOOD COUNT 6.4 10^3/uL (4.0-10.0)
--- NOTE | 2021-02-11 18:40 | REP ---
INDICATION: edema/ hx CHF. COMPARISON: Comparison chest x-ray November 07, 2020. TECHNIQUE: Two views.. FINDINGS: The lungs are well inflated and free of infiltrate. The pleural angles are sharp. The heart size is normal. Pulmonary vasculature is not increased. No significant bony abnormality is seen. An Wvhoxg-R-Kdma catheter is again noted in the right. EKG electrodes are seen. There are degenerative changes in the thoracic spine. IMPRESSION: No active disease.. <Electronically signed by Cali Elizabeth > 02/11/21 [id number]
== END 2021-02-11 19:31 | disposition home or self-care (01) ==
LOC: M ED 12:35
DX: R60.9 Edema, unspecified (principal); I10 Essential (primary) hypertension; E78.5 Hyperlipidemia, unspecified; G40.909 Epilepsy, unspecified, not intractable, without status epilepticus; N40.0 Benign prostatic hyperplasia without lower urinary tract symptoms; I25.2 Old myocardial infarction; Z88.8 Allergy status to other drugs, medicaments and biological substances; Z79.899 Other long term (current) drug therapy; Z79.01 Long term (current) use of anticoagulants

== ENCOUNTER 2021-02-20 03:56 | Inpatient (IN) | payer MEDICARE ==
[~2021-02-20] VITALS: Ht 167.6 cm; Wt 83.1 kg
[2021-02-20 05:02] LABS: BASO # 0.1 10^3/uL (0.0-0.2); BASO % 0.8 % (0.0-1.0); EOS # 0.3 10^3/uL (0.0-0.5); EOS % 3.8 % (0.0-3.0); HEMATOCRIT 32.3 % (42.0-52.0); HEMOGLOBIN 10.2 g/dl (13.5-17.5); LYMPH # 0.8 10^3/uL (1.5-5.0); LYMPH % 10.3 % (24.0-44.0); MEAN CORPUSCULAR HEMOGLOBIN 26.7 pg (27.0-33.0); MEAN CORPUSCULAR HGB CONC 31.6 g/dl (32.0-36.5); MEAN CORPUSCULAR VOLUME 84.6 fl (80.0-96.0); MONO # 0.9 10^3/uL (0.0-0.8); MONO % 12.2 % (2.0-8.0); NEUTROPHILS # 5.2 10^3/uL (1.5-8.5); NEUTROPHILS % 71.3 % (36.0-66.0); PLATELET COUNT, AUTOMATED 271 10^3/uL (150-450); RED BLOOD COUNT 3.82 10^6/uL (4.30-6.10); WHITE BLOOD COUNT 7.4 10^3/uL (4.0-10.0)
[2021-02-20 05:31] LABS: ALT/SGPT 23 U/L (12-78); BLOOD UREA NITROGEN 22 MG/DL (7-18); CALCIUM LEVEL 8.7 MG/DL (8.8-10.2); CARBON DIOXIDE LEVEL 29 MEQ/L (21-32); CHLORIDE LEVEL 108 MEQ/L (98-107); CK-MB VALUE MASS < 1.0 NG/ML (<3.6); CPK CREATINE PHOSPHOKINASE 120 U/L (39-308); CREATININE FOR GFR 1.76 MG/DL (0.70-1.30); GLOMERULAR FILTRATION RATE 39.9 (>35); GLUCOSE, FASTING 109 MG/DL (70-100); MB/CK RELATIVE INDEX 0.83 (< OR =4); POTASSIUM SERUM 4.3 MEQ/L (3.5-5.1); SODIUM LEVEL 144 MEQ/L (136-145)
[2021-02-20 05:32] LABS: ALBUMIN 3.9 GM/DL (3.2-5.2); BILIRUBIN,DIRECT 0.1 MG/DL (0.0-0.2); BILIRUBIN,TOTAL 0.3 MG/DL (0.2-1.0); NT-PRO BNP 1174 PG/ML (<450); TOTAL PROTEIN 6.8 GM/DL (6.4-8.2); TROPONIN I < 0.02 NG/ML (< 0.10)
[2021-02-20] MEDS ORDERED: FUROSEMIDE 100MG/10ML VIAL (J1940) IV ONE (06:40)
--- NOTE | 2021-02-20 06:41 | ECGEPIP ---
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
--- NOTE | 2021-02-20 07:15 | REPVR ---
PROCEDURE INFORMATION: Exam: XR Chest Exam date and time: 02/20/2021 4:29 AM Age: 80 years old Clinical indication: Other: Dyspnea; Additional info: Dyspnea/cough TECHNIQUE: Imaging protocol: XR of the chest. Views: 1 view. COMPARISON: CR Chest, 2 view PA, Lat 11/07/2020 6:22 AM FINDINGS: Tubes, catheters and devices: Stable positioning of med port catheter. Lungs: Hyperinflation with trace right basilar airspace disease. Pleural spaces: No pleural effusion. Heart/Mediastinum: No cardiomegaly. Vasculature: Calcification of the thoracic aorta. Bones/joints: Cervical spine fusion. Degenerative change. IMPRESSION: Hyperinflation with trace right basilar airspace disease. Electronically signed by: Sanya Tan On 02/20/2021 07:15:13 AM
--- NOTE | 2021-02-20 07:35 | REPVR ---
PROCEDURE INFORMATION: Exam: CT Head Without Contrast Exam date and time: 02/20/2021 4:29 AM Age: 80 years old Clinical indication: Altered mental status/memory loss; Confusion or disorientation; Additional info: Possible injury, confusion TECHNIQUE: Imaging protocol: Computed tomography of the head without contrast. Radiation optimization: All CT scans at this facility use at least one of these dose optimization techniques: automated exposure control; mA and/or kV adjustment per patient size (includes targeted exams where dose is matched to clinical indication); or iterative reconstruction. COMPARISON: CT Head without contrast 02/03/2021 6:01 AM FINDINGS: Brain: Generalized parenchymal atrophy and evidence of microvascular ischemic disease involving periventricular and subcortical white matter bilaterally. Left parietal-occipital encephalomalacia. Old lacunar infarct right caudate head. Cerebral ventricles: Cavum septum pellucidum. Paranasal sinuses: Partial opacified left maxillary sinus. Mastoid air cells: Visualized mastoid air cells are well aerated. Bones/joints: Unremarkable. No acute fracture. Soft tissues: Unremarkable. IMPRESSION: No acute intracranial pathology. Electronically signed by: Jesus Stanton On 02/20/2021 07:34:43 AM
--- NOTE | 2021-02-20 07:40 | REPVR ---
PROCEDURE INFORMATION: Exam: CT Cervical Spine Without Contrast Exam date and time: 02/20/2021 4:29 AM Age: 80 years old Clinical indication: Neck pain; Additional info: Possible injury, confusion TECHNIQUE: Imaging protocol: Computed tomography images of the cervical spine without contrast. Radiation optimization: All CT scans at this facility use at least one of these dose optimization techniques: automated exposure control; mA and/or kV adjustment per patient size (includes targeted exams where dose is matched to clinical indication); or iterative reconstruction. COMPARISON: CT Spine,cervical w/o contrast 02/03/2021 6:01 AM FINDINGS: Bones/joints: Status post C3-C7 anterior cervical spinal fusion. Mild anterolisthesis of C7 on T1, degenerative in nature. Discs/Spinal canal/Neural foramina: Severe multilevel degenerative disease and facet arthropathy of the cervical spine. Stenosis of the spinal canal and neural foramina multiple levels. Sinuses: Opacified left maxillary sinus. Lungs: Centrilobular emphysema. 6 mm pulmonary nodule the left upper lobe. Vasculature: Atherosclerotic disease. Soft tissues: Unremarkable. IMPRESSION: No acute fractures. Status post C3-C7 anterior cervical spinal fusion. Mild anterolisthesis of C7 on T1, degenerative in nature. 6 mm pulmonary nodule the left upper lobe. For patients at low risk (minimal or absent history of smoking and of other known risk factors), recommend CT Chest at 3-6 months, then consider CT Chest at 18-24 months. For patients at high risk (history of smoking or of other known risk factors), recommend CT Chest at 3-6 months, then CT Chest at 18-24 months. (Reference: Kyle) References: Hipolitohorosario Johnston, et al. Guidelines for Management of Incidental Pulmonary Nodules Detected on CT Images: From the Fleischner Society 2017. Radiology. 2017;284(1):228-243. Electronically signed by: Jesus Stanton On 02/20/2021 07:40:01 AM
[2021-02-20] MEDS ORDERED: FUROSEMIDE 40 MG TAB PO SCH (09:00)
[2021-02-20] MEDS ORDERED: METOPROLOL SUCC (TopROL XL) 50MG **XL** TAB PO SCH (09:00)
[2021-02-20] MEDS ORDERED: FERR325T19 PO (09:51)
[2021-02-20] MEDS ORDERED: ATOR80TA59 PO (09:51)
[2021-02-20] MEDS ORDERED: VALA500T5 PO (09:51)
[2021-02-20] MEDS ORDERED: OMEP-221 PO (09:52)
[2021-02-20] MEDS ORDERED: MED REC COMMENT (09:53)
[2021-02-20] MEDS ORDERED: HOME MED LIST COMPLETE! XX SCH (09:55)
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
[2021-02-20 12:00] LABS: RSV AMPLIFICATION NEGATIVE (NEGATIVE)
[2021-02-20 13:22] LABS: FERRITIN 48 NG/ML (26-388); FREE T4 0.92 NG/DL (0.76-1.46); IRON (FE) 48 UG/DL (65-175); PERCENT SATURATION 11.9 % (19.7-50.0); TOTAL IRON BINDING CAPACITY 404 UG/DL (250-450)
[2021-02-20] MEDS: ATORVASTATIN 20 MG TAB PO SCH (15:19)
[2021-02-20] MEDS: GABAPENTIN 100 MG CAP PO SCH ×2 (15:19→20:07)
[2021-02-20] MEDS: valACYclovir HCL 500 MG TAB PO SCH (15:19)
[2021-02-20] MEDS: FERROUS SULFATE 325MG TAB PO SCH (15:19)
[2021-02-20] MEDS: OMEPRAZOLE 20 MG CAP PO SCH (15:20)
[2021-02-20] MEDS: POTASSIUM CHLORIDE 10 MEQ SR TABLET PO SCH (15:20)
[2021-02-20] MEDS: levETIRAcetam 250MG TABLET (KEPPRA) PO SCH (15:21)
[2021-02-20] MEDS: allopurinoL 100 MG TAB PO SCH (15:38)
[2021-02-20] MEDS: METOPROLOL TART 25 MG TABLET PO SCH ×2 (15:39→20:09)
[2021-02-20 15:57] VITALS: BP 148/84
[2021-02-20] MEDS ORDERED: FUROSEMIDE 40MG/4ML VIAL (J1940) IV ONE (16:00)
[2021-02-20] MEDS: LISINOPRIL *2.5 MG* TAB PO SCH (16:09)
[2021-02-20] MEDS: MONTELUKAST 10 MG TAB PO SCH (20:08)
[2021-02-20] MEDS: ACETAMINOPHEN TAB 650MG DOSE (2X325MG) PO PRN (20:08)
[2021-02-20] MEDS: APIXABAN 2.5 MG TAB (ELIQUIS) PO SCH (20:08)
[2021-02-20 22:00] VITALS: BP 128/82
[2021-02-21 05:54] LABS: HEMATOCRIT 29.7 % (42.0-52.0); HEMOGLOBIN 9.4 g/dl (13.5-17.5); MEAN CORPUSCULAR HEMOGLOBIN 26.8 pg (27.0-33.0); MEAN CORPUSCULAR HGB CONC 31.6 g/dl (32.0-36.5); MEAN CORPUSCULAR VOLUME 84.6 fl (80.0-96.0); PLATELET COUNT, AUTOMATED 243 10^3/uL (150-450); RED BLOOD COUNT 3.51 10^6/uL (4.30-6.10)
[2021-02-21 06:00] VITALS: BP 115/56
[2021-02-21 06:19] LABS: ALBUMIN 3.2 GM/DL (3.2-5.2); CALCIUM LEVEL 8.5 MG/DL (8.8-10.2); CREATININE FOR GFR 1.36 MG/DL (0.70-1.30); GLOMERULAR FILTRATION RATE 53.7 (>35); MAGNESIUM LEVEL 2.1 MG/DL (1.8-2.4); PHOSPHORUS LEVEL 3.3 MG/DL (2.5-4.9); POTASSIUM SERUM 3.6 MEQ/L (3.5-5.1)
[2021-02-21] MEDS: LISINOPRIL *2.5 MG* TAB PO SCH (08:36)
[2021-02-21] MEDS: levETIRAcetam 250MG TABLET (KEPPRA) PO SCH (08:36)
[2021-02-21] MEDS: METOPROLOL TART 25 MG TABLET PO SCH ×2 (08:36→21:24)
[2021-02-21] MEDS: OMEPRAZOLE 20 MG CAP PO SCH (08:36)
[2021-02-21] MEDS: ATORVASTATIN 20 MG TAB PO SCH (08:36)
[2021-02-21] MEDS: allopurinoL 100 MG TAB PO SCH (08:37)
[2021-02-21] MEDS: APIXABAN 2.5 MG TAB (ELIQUIS) PO SCH ×2 (08:37→21:21)
[2021-02-21] MEDS: POTASSIUM CHLORIDE 10 MEQ SR TABLET PO SCH (08:37)
[2021-02-21] MEDS: valACYclovir HCL 500 MG TAB PO SCH (08:37)
[2021-02-21] MEDS: FUROSEMIDE 40 MG TAB PO SCH (08:37)
[2021-02-21] MEDS: GABAPENTIN 100 MG CAP PO SCH ×2 (08:37→21:21)
[2021-02-21] MEDS: FERROUS SULFATE 325MG TAB PO SCH (08:37)
[2021-02-21] MEDS ORDERED: amLODIPine 5 MG TAB PO SCH (09:00)
--- NOTE | 2021-02-21 12:48 | IPNPDOC ---
Text Note Date of Service The patient was seen on 02/21/21. NOTE Hospitalist Progress Note Subjective: Patient was actually being washed up in the shower (he was wearing underpants) when I entered the room. He reports that he is feeling well, he does continue to have bilateral lower extremity swelling, but reports that it is better than i t was yesterday. Otherwise, he denies any shortness of breath, orthopnea, and does not have any other acute complaints at this time. Objective: General: Awake, alert, oriented 3. Not in any acute distress. HEENT: Head normocephalic, atraumatic, sclera are nonicteric. Hearing is grossly intact to conversation. Respiratory: Clear to auscultation bilaterally with no wheezes, rales, or rhonchi. Cardiovascular: Regular rate and rhythm, with no rubs, gallops, or murmur. Abdomen: Soft, nontender, nondistended, no hepatosplenomegaly appreciated. Bowel sounds present. Extremities: 2+ pulses in the radial and dorsalis pedis bilaterally. No evidence of clubbing or cyanosis. Assessment: Congestive heart failure with preserved ejection fraction (diastolic heart failure) -Continues to have some bilateral lower extremity swelling, but clinically improving. Still not quite back to baseline. -Continue diuresis Mild acute kidney injury -GFR and creatinine improving. baseline is normal creatinine Atrial fibrillation -Rate controlled, continue Eliquis and metoprolol tartrate Gout -Continue allopurinol Anemia History of CLL status post chemotherapy -No evidence of bleeding at this time -Iron studies have been ordered, he does have a mildly low iron with a normal TIBC and normal ferritin, not necessarily consistent with iron deficiency anemia, but more likely anemia of chronic disease versus history of CLL. -Continue to monitor CBC Elevated TSH with normal free T4, without diagnosis of hypothyroidism -Recommend follow-up TSH as an outpatient in 6 weeks 6 mm pulmonary nodule left upper lobe, incidental finding -Recommend repeat CT scan in 3-6 months, will need to follow-up as an outp atient. 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 PFS has been consulted, their input regarding appropriate discharge planning is greatly appreciated. VS,Elizabeth, I+O VS, Elizabeth, I+O Laboratory Tests 02/21/21 05:26 Vital Signs Date Time Temp Pulse Resp B/P (MAP) Pulse Ox O2 Delivery O2 Flow Rate FiO2 02/21/21 08:36 75 119/60 02/21/21 06:00 97.7 16 98 Room Air I&O- Last 24 Hours up to 6 AM 02/21/21 06:00 Intake Total 450 ml Output Total 300 ml Balance 150 ml ISAÍAS SCHUSTER DO Feb 21, 2021 12:48
[2021-02-21] MEDS: POLYVINYL ALCOHOL OPHTH SOLN 15 ML(LIQUITEARS) OU PRN (13:05)
[2021-02-21 14:00] VITALS: BP 116/60
[2021-02-21] MEDS: ACETAMINOPHEN TAB 650MG DOSE (2X325MG) PO PRN (15:11)
[2021-02-21] MEDS: LIDOCAINE 5% (LIDODERM) PATCH TD SCH (18:43)
[2021-02-21 20:00] VITALS: BP 115/59
[2021-02-21] MEDS: MONTELUKAST 10 MG TAB PO SCH (21:21)
[2021-02-21] MEDS: **NOTE PATIENT COMMENT** MISC XX SCH (21:23)
[2021-02-22 06:00] VITALS: BP 116/52
[2021-02-22 06:16] LABS: HEMATOCRIT 31.8 % (42.0-52.0); HEMOGLOBIN 10.1 g/dl (13.5-17.5); MEAN CORPUSCULAR HEMOGLOBIN 26.9 pg (27.0-33.0); MEAN CORPUSCULAR HGB CONC 31.8 g/dl (32.0-36.5); MEAN CORPUSCULAR VOLUME 84.6 fl (80.0-96.0); PLATELET COUNT, AUTOMATED 246 10^3/uL (150-450); RED BLOOD COUNT 3.76 10^6/uL (4.30-6.10); WHITE BLOOD COUNT 4.4 10^3/uL (4.0-10.0)
[2021-02-22 06:47] LABS: ALBUMIN 3.3 GM/DL (3.2-5.2); CALCIUM LEVEL 8.2 MG/DL (8.8-10.2); CREATININE FOR GFR 1.34 MG/DL (0.70-1.30); GLOMERULAR FILTRATION RATE 54.6 (>35); MAGNESIUM LEVEL 2.2 MG/DL (1.8-2.4); PHOSPHORUS LEVEL 3.2 MG/DL (2.5-4.9); POTASSIUM SERUM 4.1 MEQ/L (3.5-5.1)
[2021-02-22] MEDS: allopurinoL 100 MG TAB PO SCH (11:29)
[2021-02-22] MEDS: levETIRAcetam 250MG TABLET (KEPPRA) PO SCH (11:29)
[2021-02-22] MEDS: APIXABAN 2.5 MG TAB (ELIQUIS) PO SCH ×2 (11:29→21:55)
[2021-02-22] MEDS: ATORVASTATIN 20 MG TAB PO SCH (11:30)
[2021-02-22] MEDS: valACYclovir HCL 500 MG TAB PO SCH (11:30)
[2021-02-22] MEDS: FERROUS SULFATE 325MG TAB PO SCH (11:30)
[2021-02-22] MEDS: GABAPENTIN 100 MG CAP PO SCH ×2 (11:30→21:55)
[2021-02-22] MEDS: POTASSIUM CHLORIDE 10 MEQ SR TABLET PO SCH (11:30)
[2021-02-22] MEDS: OMEPRAZOLE 20 MG CAP PO SCH (11:30)
[2021-02-22] MEDS: FUROSEMIDE 40 MG TAB PO SCH (11:31)
[2021-02-22] MEDS: LIDOCAINE 5% (LIDODERM) PATCH TD SCH (11:32)
[2021-02-22] MEDS: METOPROLOL TART 25 MG TABLET PO SCH ×2 (11:32→21:55)
[2021-02-22] MEDS: LISINOPRIL *2.5 MG* TAB PO SCH (11:32)
--- NOTE | 2021-02-22 11:52 | IPNPDOC ---
Text Note Date of Service The patient was seen on 02/22/21. NOTE Hospitalist Progress Note Subjective: Patient was sleeping in bed when I entered the room, he was easily aroused. He states that he is feeling fairly well today, and does not have any acute complaints at this time. Remainder of his review of systems is negative. Objective: General: Awake, alert, oriented 3. Not in any acute distress. HEENT: Head normocephalic, atraumatic, sclera are nonicteric. Hearing is grossly intact to conversation. Respiratory: Clear to auscultation bilaterally with no wheezes, rales, or rhonchi. Cardiovascular: Controlled rate and irregular rhythm, with no rubs, gallops, or murmur. Abdomen: Soft, nontender, nondistended, no hepatosplenomegaly appreciated. Bowel sounds present. Extremities: 2+ pulses in the radial and dorsalis pedis bilaterally. No evidence of clubbing or cyanosis. Bilateral lower extremity edema 2+ almost up to the knees, and chronic venous stasis changes noted. Assessment: ACUTE: Congestive heart failure with preserved ejection fraction (diastolic heart failure) -We did diurese yesterday, but on clinical exam his bilateral lower extremity is unchanged, therefore I will add an extra dose of Lasix this evening Mild acute kidney injury -GFR slowly improving. -Continue diuresis - baseline is normal creatinine CHRONIC ISSUES: Atrial fibrillation -Rate controlled, continue Eliquis and metoprolol tartrate Gout -Continue allopurinol Anemia History of CLL status post chemotherapy -No evidence of bleeding at this time -Iron studies have been ordered, he does have a mildly low iron with a normal TIBC and normal ferritin, not necessarily consistent with iron deficiency anemia, but more likely anemia of chronic disease versus history of CLL. -Continue to monitor CBC Elevated TSH with normal free T4, without diagnosis of hypothyroidism -Recommend follow-up TSH as an outpatient in 6 weeks 6 mm pulmonary nodule left upper lobe, incidental finding -Recommend repeat CT scan in 3-6 months, will need to follow-up as an outpatient. 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 PFS has been consulted, their input regarding appropriate discharge planning is greatly appreciated. VSElizabeth, I+O VS, Fishbone, I+O Laboratory Tests 02/22/21 05:32 Vital Signs Date Time Temp Pulse Resp B/P (MAP) Pulse Ox O2 Delivery O2 Flow Rate FiO2 02/22/21 11:32 73 115/69 02/22/21 06:00 97.4 17 94 Room Air I&O- Last 24 Hours up to 6 AM 02/22/21 06:00 Intake Total 1138 ml Balance 1138 ml ISAÍAS SCHUSTER DO Feb 22, 2021 11:52
[2021-02-22 14:00] VITALS: BP 117/63
[2021-02-22] MEDS ORDERED: FUROSEMIDE 40 MG TAB PO ONE (17:00)
[2021-02-22] MEDS: **NOTE PATIENT COMMENT** MISC XX SCH (21:00)
[2021-02-22] MEDS: ACETAMINOPHEN TAB 650MG DOSE (2X325MG) PO PRN (21:55)
[2021-02-22] MEDS: MONTELUKAST 10 MG TAB PO SCH (21:55)
[2021-02-22 22:00] VITALS: BP 112/59
[2021-02-23] MEDS ORDERED: LORazepam 2 MG/ML VIAL IV PRN (02:20)
[2021-02-23 06:00] VITALS: BP 113/59
[2021-02-23 06:02] LABS: HEMATOCRIT 32.7 % (42.0-52.0); HEMOGLOBIN 10.2 g/dl (13.5-17.5); MEAN CORPUSCULAR HEMOGLOBIN 26.7 pg (27.0-33.0); MEAN CORPUSCULAR HGB CONC 31.2 g/dl (32.0-36.5); MEAN CORPUSCULAR VOLUME 85.6 fl (80.0-96.0); PLATELET COUNT, AUTOMATED 240 10^3/uL (150-450); RED BLOOD COUNT 3.82 10^6/uL (4.30-6.10); WHITE BLOOD COUNT 4.9 10^3/uL (4.0-10.0)
[2021-02-23 06:27] LABS: ALBUMIN 3.4 GM/DL (3.2-5.2); CALCIUM LEVEL 8.3 MG/DL (8.8-10.2); CREATININE FOR GFR 1.32 MG/DL (0.70-1.30); GLOMERULAR FILTRATION RATE 55.6 (>35); MAGNESIUM LEVEL 2.2 MG/DL (1.8-2.4); PHOSPHORUS LEVEL 3.1 MG/DL (2.5-4.9); POTASSIUM SERUM 3.8 MEQ/L (3.5-5.1)
[2021-02-23] MEDS: allopurinoL 100 MG TAB PO SCH (10:23)
[2021-02-23] MEDS: valACYclovir HCL 500 MG TAB PO SCH (10:23)
[2021-02-23] MEDS: levETIRAcetam 250MG TABLET (KEPPRA) PO SCH (10:23)
[2021-02-23] MEDS: FERROUS SULFATE 325MG TAB PO SCH (10:24)
[2021-02-23] MEDS: ATORVASTATIN 20 MG TAB PO SCH (10:24)
[2021-02-23] MEDS: POTASSIUM CHLORIDE 10 MEQ SR TABLET PO SCH (10:24)
[2021-02-23] MEDS: METOPROLOL TART 25 MG TABLET PO SCH ×2 (10:24→20:34)
[2021-02-23] MEDS: APIXABAN 2.5 MG TAB (ELIQUIS) PO SCH ×2 (10:24→20:33)
[2021-02-23] MEDS: GABAPENTIN 100 MG CAP PO SCH ×2 (10:24→20:34)
[2021-02-23] MEDS: OMEPRAZOLE 20 MG CAP PO SCH (10:24)
[2021-02-23] MEDS: ACETAMINOPHEN TAB 650MG DOSE (2X325MG) PO PRN (10:25)
[2021-02-23] MEDS: FUROSEMIDE 40 MG TAB PO SCH (10:25)
[2021-02-23] MEDS: LIDOCAINE 5% (LIDODERM) PATCH TD SCH (10:26)
[2021-02-23] MEDS: LISINOPRIL *2.5 MG* TAB PO SCH (10:35)
[2021-02-23] MEDS: POLYVINYL ALCOHOL OPHTH SOLN 15 ML(LIQUITEARS) OU PRN ×2 (11:16→17:22)
[2021-02-23 14:00] VITALS: BP 108/60
[2021-02-23] MEDS: traMADol 50 MG TAB PO PRN ×2 (14:51→20:35)
--- NOTE | 2021-02-23 15:08 | ED PDOC ---
Post-Departure Follow-Up radiology report faxed to Kavita Lee MD Feb 23, 2021 15:08
--- NOTE | 2021-02-23 17:14 | IPNPDOC ---
Subjective Date Seen The patient was seen on 02/23/21. Subjective Chief Complaint/HPI Mr. Mcrae is an 80 year old male with dementia, diastolic CHF, and atrial fibrillation on apixaban who is here for acute CHF exacerbation and COLLEEN. Patient was seen in the morning. Denies chest pain or worsening dyspnea. Objective Physical Examination General Exam: Positive: Alert, Cooperative Eye Exam: Negative: Sclera icteric ENT Exam: Positive: Atraumatic Neck Exam: Positive: Supple Chest Exam: Positive: Clear to auscultation Heart Exam: Positive: Rate Normal, Irregular Rhythm Abdomen Exam: Positive: Normal bowel sounds, Soft; Negative: Tenderness Male Exam: Positive: Edema (bilateral pitting edema) Neuro Exam: Positive: Normal Speech Psych Exam: Positive: Mental status NL, Mood NL Assessment /Plan Assessment Mr. Mcrae is an 80 year old male with dementia, diastolic CHF, and atrial fibrillation on apixaban who is here for acute CHF exacerbation and COLLEEN. Patient has dementia and would not be safe to try to care fo self at home. PFS was consu lted. Recommendations appreciated. Plan/VTE VTE Prophylaxis Ordered?: Yes Plan 1. Acute diastolic heart failure -Echo 11/08/20 demonstrate EF 67%, Grade 1 diastolic disfunction -Continue Furosemide 60mg PO qD 2. COLLEEN -On admission, creatinine was 1.76 -Baseline creatinine closer to 1.1 to 1.2 -Slowly trending downwards -Supportive care 3. Atrial fibrillation -Rate controlled -Continue Lopressor -Continue Eliquis 3. Gout -Continue allopurinol 4. Anemia of chronic disease -Stable -Continue to monitor 5. Subclinical hypothyroidism -Elevated TSH with normal free T4 -Patient should follow up outpatient with 6 week TSH 6. 6mm pulmonary nodule in the left upper lobe -Repeat CT scan in 3 to 6 months 7. 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 Dementia -Patient would not be able to safely care for self at home -PFS consulted, recommendations appreciated 10. DVT ppx -Continue Eliquis Disposition: Pending recommendations of PFS VS, I&O, 24H, Fishbone Vital Signs/I&O Vital Signs Date Time Temp Pulse Resp B/P (MAP) Pulse Ox O2 Delivery O2 Flow Rate FiO2 02/23/21 14:51 18 02/23/21 14:00 97.2 63 108/60 (76) 100 Room Air I&O- Last 24 Hours up to 6 AM 02/23/21 06:00 Intake Total 950 ml Output Total 150 ml Balance 800 ml Laboratory Data 24H LABS Laboratory Tests 2 02/22/21 16:37: Bedside Glucose (Misc Panel) 95 02/23/21 05:42: Nucleated Red Blood Cells % (auto) 0.0, Anion Gap 6L, Glomerular Filtration Rate 55.6, Calcium Level 8.3L, Phosphorus Level 3.1, Magnesium Level 2.2, Albumin 3.4 CBC/BMP Laboratory Tests 02/23/21 05:42 ZORAN LEE DO Feb 23, 2021 15:06
[2021-02-23] MEDS: MONTELUKAST 10 MG TAB PO SCH (20:33)
[2021-02-23] MEDS: **NOTE PATIENT COMMENT** MISC XX SCH (20:35)
[2021-02-23 21:00] VITALS: BP 111/59
[2021-02-24 06:14] LABS: HEMATOCRIT 34.1 % (42.0-52.0); HEMOGLOBIN 10.2 g/dl (13.5-17.5); MEAN CORPUSCULAR HEMOGLOBIN 26.4 pg (27.0-33.0); MEAN CORPUSCULAR HGB CONC 29.9 g/dl (32.0-36.5); MEAN CORPUSCULAR VOLUME 88.1 fl (80.0-96.0); PLATELET COUNT, AUTOMATED 222 10^3/uL (150-450); RED BLOOD COUNT 3.87 10^6/uL (4.30-6.10); WHITE BLOOD COUNT 5.1 10^3/uL (4.0-10.0)
[2021-02-24 06:28] VITALS: BP 128/71
[2021-02-24 06:36] LABS: ALBUMIN 3.3 GM/DL (3.2-5.2); CALCIUM LEVEL 8.2 MG/DL (8.8-10.2); CREATININE FOR GFR 1.33 MG/DL (0.70-1.30); GLOMERULAR FILTRATION RATE 55.1 (>35); MAGNESIUM LEVEL 2.2 MG/DL (1.8-2.4); PHOSPHORUS LEVEL 3.2 MG/DL (2.5-4.9); POTASSIUM SERUM 5.6 MEQ/L (3.5-5.1)
[2021-02-24] MEDS: LISINOPRIL *2.5 MG* TAB PO SCH (09:00)
[2021-02-24] MEDS: POTASSIUM CHLORIDE 10 MEQ SR TABLET PO SCH (09:00)
[2021-02-24] MEDS: ATORVASTATIN 20 MG TAB PO SCH (09:25)
[2021-02-24] MEDS: APIXABAN 2.5 MG TAB (ELIQUIS) PO SCH ×2 (09:25→21:39)
[2021-02-24] MEDS: OMEPRAZOLE 20 MG CAP PO SCH (09:25)
[2021-02-24] MEDS: levETIRAcetam 250MG TABLET (KEPPRA) PO SCH (09:25)
[2021-02-24] MEDS: GABAPENTIN 100 MG CAP PO SCH ×2 (09:26→21:38)
[2021-02-24] MEDS: allopurinoL 100 MG TAB PO SCH (09:26)
[2021-02-24] MEDS: POLYVINYL ALCOHOL OPHTH SOLN 15 ML(LIQUITEARS) OU PRN (09:26)
[2021-02-24] MEDS: FERROUS SULFATE 325MG TAB PO SCH (09:26)
[2021-02-24] MEDS: valACYclovir HCL 500 MG TAB PO SCH (09:26)
[2021-02-24] MEDS: LIDOCAINE 5% (LIDODERM) PATCH TD SCH (09:27)
[2021-02-24] MEDS: METOPROLOL TART 25 MG TABLET PO SCH ×2 (09:28→21:40)
[2021-02-24] MEDS: FUROSEMIDE 40 MG TAB PO SCH (09:28)
[2021-02-24 13:48] LABS: CALCIUM LEVEL 8.3 MG/DL (8.8-10.2); CREATININE FOR GFR 1.36 MG/DL (0.70-1.30); GLOMERULAR FILTRATION RATE 53.7 (>35); POTASSIUM SERUM 4.3 MEQ/L (3.5-5.1)
[2021-02-24 14:00] VITALS: BP 108/66
--- NOTE | 2021-02-24 15:20 | IPNPDOC ---
Subjective Date Seen The patient was seen on 02/24/21. Subjective Chief Complaint/HPI Mr. Mcrae is an 80 year old male with dementia, diastolic CHF, and atrial fibrillation on apixaban who is here for acute CHF exacerbation and COLLEEN. He was seen this morning resting in bed. Denies chest pain or dyspnea. Legs still have pitting edema but he feels that it has improved. Objective Physical Examination General Exam: Positive: Alert, Cooperative Eye Exam: Negative: Sclera icteric ENT Exam: Positive: Atraumatic Neck Exam: Positive: Supple Chest Exam: Positive: Clear to auscultation Heart Exam: Positive: Rate Normal, Irregular Rhythm Abdomen Exam: Positive: Normal bowel sounds, Soft; Negative: Tenderness Male Exam: Positive: Edema (bilateral pitting edema) Neuro Exam: Positive: Normal Speech Psych Exam: Positive: Mental status NL, Mood NL Assessment /Plan Assessment Mr. Mcrae is an 80 year old male with dementia, diastolic CHF, and atrial fibrillation on apixaban who is here for acute CHF exacerbation and COLLEEN. Patient has dementia and would not be safe to try to care fo self at home. PFS was consulted. Recommendations appreciated. Plan/VTE VTE Prophylaxis Ordered?: Yes Plan 1. Acute diastolic heart failure -Echo 11/08/20 demonstrate EF 67%, Grade 1 diastolic disfunction -Continue Furosemide 60mg PO qD 2. COLLEEN -On admission, creatinine was 1.76 -Baseline creatinine closer to 1.1 to 1.2 -Slowly trending downwards -Supportive care 3. Atrial fibrillation -Rate controlled -Continue Lopressor -Continue Eliquis 3. Gout -Continue allopurinol 4. Anemia of chronic disease -Stable -Continue to monitor 5. Subclinical hypothyroidism -Elevated TSH with normal free T4 -Patient should follow up outpatient with 6 week TSH 6. 6mm pulmonary nodule in the left upper lobe -Repeat CT scan in 3 to 6 months 7. 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 Dementia -Patient would not be able to safely care for self at home -PFS consulted, recommendations appreciated 10. DVT ppx -Continue Eliquis Disposition: Pending recommendations of PFS. Patient may be a candidate for ARU. VS, I&O, 24H, Fishbone Vital Signs/I&O Vital Signs Date Time Temp Pulse Resp B/P (MAP) Pulse Ox O2 Delivery O2 Flow Rate FiO2 02/24/21 14:00 98.3 70 17 108/66 (80) 98 Room Air I&O- Last 24 Hours up to 6 AM 02/24/21 06:00 Intake Total 1320 ml Output Total 425 ml Balance 895 ml Laboratory Data 24H LABS Laboratory Tests 2 02/24/21 05:38: Nucleated Red Blood Cells % (auto) 0.0, Anion Gap 5L, Glomerular Filtration Rate 55.1, Calcium Level 8.2L, Phosphorus Level 3.2, Magnesium Level 2.2, Albumin 3.3 02/24/21 07:33: Bedside Glucose (Misc Panel) 89 02/24/21 13:01: Anion Gap 5L, Glomerular Filtration Rate 53.7, Calcium Level 8.3L CBC/BMP Laboratory Tests 02/24/21 05:38 02/24/21 13:01 Microbiology Microbiology 02/23/21 Stool Occult Blood (CHANTAL) - Final, Complete ZORAN LEE DO Feb 24, 2021 15:20
[2021-02-24] MEDS: MONTELUKAST 10 MG TAB PO SCH (21:39)
[2021-02-24] MEDS: **NOTE PATIENT COMMENT** MISC XX SCH (21:40)
[2021-02-24 22:00] VITALS: BP 110/48
[2021-02-25 05:44] LABS: HEMATOCRIT 31.9 % (42.0-52.0); HEMOGLOBIN 9.9 g/dl (13.5-17.5); MEAN CORPUSCULAR VOLUME 86.9 fl (80.0-96.0); PLATELET COUNT, AUTOMATED 234 10^3/uL (150-450); RED BLOOD COUNT 3.67 10^6/uL (4.30-6.10); WHITE BLOOD COUNT 4.2 10^3/uL (4.0-10.0)
[2021-02-25 06:08] LABS: ALBUMIN 3.4 GM/DL (3.2-5.2); CREATININE FOR GFR 1.26 MG/DL (0.70-1.30); GLOMERULAR FILTRATION RATE 58.6 (>35); MAGNESIUM LEVEL 2.3 MG/DL (1.8-2.4); POTASSIUM SERUM 3.6 MEQ/L (3.5-5.1)
[2021-02-25 06:30] VITALS: BP 111/90
[2021-02-25] MEDS: POLYVINYL ALCOHOL OPHTH SOLN 15 ML(LIQUITEARS) OU PRN (09:10)
[2021-02-25] MEDS: ATORVASTATIN 20 MG TAB PO SCH (09:10)
[2021-02-25] MEDS: APIXABAN 2.5 MG TAB (ELIQUIS) PO SCH ×2 (09:11→22:20)
[2021-02-25] MEDS: GABAPENTIN 100 MG CAP PO SCH ×2 (09:11→22:20)
[2021-02-25] MEDS: levETIRAcetam 250MG TABLET (KEPPRA) PO SCH (09:11)
[2021-02-25] MEDS: FUROSEMIDE 40 MG TAB PO SCH (09:11)
[2021-02-25] MEDS: allopurinoL 100 MG TAB PO SCH (09:11)
[2021-02-25] MEDS: OMEPRAZOLE 20 MG CAP PO SCH (09:11)
[2021-02-25] MEDS: valACYclovir HCL 500 MG TAB PO SCH (09:11)
[2021-02-25] MEDS: METOPROLOL TART 25 MG TABLET PO SCH ×2 (09:12→22:21)
[2021-02-25] MEDS: FERROUS SULFATE 325MG TAB PO SCH (09:12)
[2021-02-25] MEDS: POTASSIUM CHLORIDE 10 MEQ SR TABLET PO SCH (09:12)
[2021-02-25] MEDS: LIDOCAINE 5% (LIDODERM) PATCH TD SCH (09:13)
[2021-02-25] MEDS: LISINOPRIL *2.5 MG* TAB PO SCH (09:13)
[2021-02-25] MEDS: DOCUSATE SODIUM 100MG CAPSULE PO SCH ×2 (13:23→22:20)
[2021-02-25 14:00] VITALS: BP 125/74
[2021-02-25] MEDS ORDERED: POLYOPD OU (14:03)
[2021-02-25] MEDS ORDERED: LIDO5TD TD (14:03)
[2021-02-25] MEDS ORDERED: LEVE500T5 PO (14:03)
[2021-02-25] MEDS ORDERED: LISI2.5T2 PO (14:03)
[2021-02-25] MEDS ORDERED: DOK1CAP7 PO (14:03)
[2021-02-25] MEDS ORDERED: ACET1TAB55 PO (14:03)
--- NOTE | 2021-02-25 18:49 | IPNPDOC ---
Subjective Date Seen The patient was seen on 02/25/21. Subjective Chief Complaint/HPI Mr. Mcrae is an 80 year old male with diastolic CHF and atrial fibrillation on apixaban who is here for acute CHF exacerbation and COLLEEN. This morning, he denies chest pain or dyspnea. Swelling in his ankles are improving. I performed a MMSE, and he score better than expected. He scored 27/30. He missed questions due to his poor eye sight and inability to read. Nursing reports his mentation waxes and wanes, but after his MMSE, his diagnosis of dementia is questionable. Otherwise, around 16:55PM, nurse notified me that patient was hallucinating. He was seeing and talking with his brother. He had called out to the nurse and said that "I'm not seeing things, my brother Isidro Mcrae is sitting right there". Patient does not have leukocytosis or fever. Will order CT head and UA to work up infectious causes. Objective Physical Examination General Exam: Positive: Alert, Cooperative Eye Exam: Negative: Sclera icteric ENT Exam: Positive: Atraumatic Neck Exam: Positive: Supple Chest Exam: Positive: Clear to auscultation Heart Exam: Positive: Rate Normal, Irregular Rhythm Abdomen Exam: Positive: Normal bowel sounds, Soft; Negative: Tenderness Male Exam: Positive: Edema (bilateral pitting edema) Neuro Exam: Positive: Normal Speech Psych Exam: Positive: Mental status NL, Mood NL Assessment /Plan Assessment Mr. Mcrae is an 80 year old male with diastolic CHF and atrial fibrillation on apixaban who is here for acute CHF exacerbation and COLLEEN. There is question if he is able to care for self at home. PFS was consulted. Recommendations appreciate d. Nursing reported patient was hallucinating on 02/25/21 around 16:55. Order CT head and UA. Plan/VTE VTE Prophylaxis Ordered?: Yes Plan 1. Acute diastolic heart failure -Echo 11/08/20 demonstrate EF 67%, Grade 1 diastolic disfunction -Continue Furosemide 60mg PO qD 2. COLLEEN -On admission, creatinine was 1.76 -Baseline creatinine closer to 1.1 to 1.2 -Slowly trending downwards -Supportive care 3. Atrial fibrillation -Rate controlled -Continue Lopressor -Continue Eliquis 3. Gout -Continue allopurinol 4. Anemia of chronic disease -Stable -Continue to monitor 5. Subclinical hypothyroidism -Elevated TSH with normal free T4 -Patient should follow up outpatient with 6 week TSH 6. 6mm pulmonary nodule in the left upper lobe -Repeat CT scan in 3 to 6 months 7. 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 Dementia -Questionable with MMSE score of 27/30 -PFS consulted, recommendations appreciated 10. Hallucination -Ordered for UA and CT head -Unlikely medications 11. DVT ppx -Continue Eliquis Disposition: Pending UA and CT head results VS, I&O, 24H, Fishbone Vital Signs/I&O Vital Signs Date Time Temp Pulse Resp B/P (MAP) Pulse Ox O2 Delivery O2 Flow Rate FiO2 02/25/21 14:00 97.9 65 17 125/74 (91) 99 Room Air I&O- Last 24 Hours up to 6 AM 02/25/21 06:00 Intake Total 1555 ml Output Total 925 ml Balance 630 ml Laboratory Data 24H LABS Laboratory Tests 2 02/25/21 05:27: Nucleated Red Blood Cells % (auto) 0.0, Anion Gap 5L, Glomerular Filtration Rate 58.6, Calcium Level 8.0L, Phosphorus Level 3.0, Magnesium Level 2.3, Albumin 3.4 CBC/BMP Laboratory Tests 02/25/21 05:27 Microbiology Microbiology 02/23/21 Stool Occult Blood (CHANTAL) - Final, Complete ZORAN LEE DO Feb 25, 2021 16:57
--- NOTE | 2021-02-25 20:10 | REPVR ---
PROCEDURE INFORMATION: Exam: CT Head Without Contrast Exam date and time: 02/25/2021 7:21 PM Age: 80 years old Clinical indication: Other: Hallucination TECHNIQUE: Imaging protocol: Computed tomography of the head without contrast. Radiation optimization: All CT scans at this facility use at least one of these dose optimization techniques: automated exposure control; mA and/or kV adjustment per patient size (includes targeted exams where dose is matched to clinical indication); or iterative reconstruction. COMPARISON: CT Head without contrast 02/20/2021 5:17 AM FINDINGS: Brain: The brain demonstrates diffuse volume loss. There is white matter hypodensity most consistent with chronic small vessel ischemic change. No visible evolving territorial infarct. No hemorrhage. 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 Cerebral ventricles: The ventricles are enlarged in keeping with volume loss. Paranasal sinuses: Visualized sinuses are unremarkable. No fluid levels. Mastoid air cells: Visualized mastoid air cells are well aerated. Orbital cavity: Thinning of the lenses of the globes consistent with prior lens surgery. Bones/joints: Unremarkable. No acute fracture. Soft tissues: Unremarkable. IMPRESSION: No acute intracranial abnormality seen. Electronically signed by: Elida Rodriguez On 02/25/2021 20:09:36 PM
[2021-02-25] MEDS: **NOTE PATIENT COMMENT** MISC XX SCH (21:00)
[2021-02-25 22:00] VITALS: BP 125/69
[2021-02-25] MEDS: traMADol 50 MG TAB PO PRN (22:20)
[2021-02-25] MEDS: MONTELUKAST 10 MG TAB PO SCH (22:20)
[2021-02-26 06:00] VITALS: BP 118/66
[2021-02-26 06:07] LABS: HEMATOCRIT 33.8 % (42.0-52.0); HEMOGLOBIN 10.4 g/dl (13.5-17.5); MEAN CORPUSCULAR HGB CONC 30.8 g/dl (32.0-36.5); MEAN CORPUSCULAR VOLUME 87.8 fl (80.0-96.0); PLATELET COUNT, AUTOMATED 250 10^3/uL (150-450); RED BLOOD COUNT 3.85 10^6/uL (4.30-6.10); WHITE BLOOD COUNT 4.6 10^3/uL (4.0-10.0)
[2021-02-26 06:33] LABS: ALBUMIN 3.5 GM/DL (3.2-5.2); BLOOD UREA NITROGEN 22 MG/DL (7-18); CALCIUM LEVEL 8.9 MG/DL (8.8-10.2); CARBON DIOXIDE LEVEL 31 MEQ/L (21-32); CHLORIDE LEVEL 108 MEQ/L (98-107); CREATININE FOR GFR 1.17 MG/DL (0.70-1.30); GLOMERULAR FILTRATION RATE > 60.0 (>35); GLUCOSE, FASTING 106 MG/DL (70-100); MAGNESIUM LEVEL 2.4 MG/DL (1.8-2.4); POTASSIUM SERUM 4.1 MEQ/L (3.5-5.1); SODIUM LEVEL 143 MEQ/L (136-145)
[2021-02-26] MEDS: APIXABAN 2.5 MG TAB (ELIQUIS) PO SCH ×2 (09:23→22:13)
[2021-02-26] MEDS: DOCUSATE SODIUM 100MG CAPSULE PO SCH ×2 (09:23→22:13)
[2021-02-26] MEDS: ATORVASTATIN 20 MG TAB PO SCH (09:24)
[2021-02-26] MEDS: levETIRAcetam 250MG TABLET (KEPPRA) PO SCH (09:24)
[2021-02-26] MEDS: OMEPRAZOLE 20 MG CAP PO SCH (09:26)
[2021-02-26] MEDS: allopurinoL 100 MG TAB PO SCH (09:27)
[2021-02-26] MEDS: POTASSIUM CHLORIDE 10 MEQ SR TABLET PO SCH (09:27)
[2021-02-26] MEDS: FERROUS SULFATE 325MG TAB PO SCH (09:28)
[2021-02-26] MEDS: GABAPENTIN 100 MG CAP PO SCH ×2 (09:28→22:13)
[2021-02-26] MEDS: valACYclovir HCL 500 MG TAB PO SCH (09:28)
[2021-02-26] MEDS: FUROSEMIDE 40 MG TAB PO SCH (09:29)
[2021-02-26] MEDS: METOPROLOL TART 25 MG TABLET PO SCH ×2 (09:30→22:14)
[2021-02-26] MEDS: LISINOPRIL *2.5 MG* TAB PO SCH (09:30)
[2021-02-26] MEDS: LIDOCAINE 5% (LIDODERM) PATCH TD SCH (09:39)
[2021-02-26 14:00] VITALS: BP 110/48
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
[2021-02-26] MEDS: **NOTE PATIENT COMMENT** MISC XX SCH (21:00)
[2021-02-26 22:00] VITALS: BP 105/57
[2021-02-26] MEDS: LORazepam 1 MG TAB PO PRN (22:13)
[2021-02-26] MEDS: MONTELUKAST 10 MG TAB PO SCH (22:13)
[2021-02-27 05:51] LABS: HEMOGLOBIN 10.2 g/dl (13.5-17.5); MEAN CORPUSCULAR HEMOGLOBIN 27.1 pg (27.0-33.0); MEAN CORPUSCULAR HGB CONC 30.9 g/dl (32.0-36.5); MEAN CORPUSCULAR VOLUME 87.8 fl (80.0-96.0); PLATELET COUNT, AUTOMATED 239 10^3/uL (150-450); RED BLOOD COUNT 3.76 10^6/uL (4.30-6.10); WHITE BLOOD COUNT 4.2 10^3/uL (4.0-10.0)
[2021-02-27 06:00] VITALS: BP 149/66
[2021-02-27 06:09] LABS: ALBUMIN 3.3 GM/DL (3.2-5.2); BLOOD UREA NITROGEN 18 MG/DL (7-18); CALCIUM LEVEL 8.2 MG/DL (8.8-10.2); CARBON DIOXIDE LEVEL 32 MEQ/L (21-32); CHLORIDE LEVEL 108 MEQ/L (98-107); CREATININE FOR GFR 1.15 MG/DL (0.70-1.30); GLOMERULAR FILTRATION RATE > 60.0 (>35); GLUCOSE, FASTING 89 MG/DL (70-100); MAGNESIUM LEVEL 2.3 MG/DL (1.8-2.4); PHOSPHORUS LEVEL 2.8 MG/DL (2.5-4.9); POTASSIUM SERUM 3.7 MEQ/L (3.5-5.1); SODIUM LEVEL 143 MEQ/L (136-145)
[2021-02-27] MEDS: valACYclovir HCL 500 MG TAB PO SCH (09:53)
[2021-02-27] MEDS: LIDOCAINE 5% (LIDODERM) PATCH TD SCH (09:53)
[2021-02-27] MEDS: DOCUSATE SODIUM 100MG CAPSULE PO SCH ×2 (09:53→20:00)
[2021-02-27] MEDS: ATORVASTATIN 20 MG TAB PO SCH (09:54)
[2021-02-27] MEDS: OMEPRAZOLE 20 MG CAP PO SCH (09:54)
[2021-02-27] MEDS: levETIRAcetam 250MG TABLET (KEPPRA) PO SCH (09:54)
[2021-02-27] MEDS: APIXABAN 2.5 MG TAB (ELIQUIS) PO SCH ×2 (09:54→19:59)
[2021-02-27] MEDS: POTASSIUM CHLORIDE 10 MEQ SR TABLET PO SCH (09:54)
[2021-02-27] MEDS: FERROUS SULFATE 325MG TAB PO SCH (09:54)
[2021-02-27] MEDS: FUROSEMIDE 40 MG TAB PO SCH (09:55)
[2021-02-27] MEDS: allopurinoL 100 MG TAB PO SCH (09:55)
[2021-02-27] MEDS: LISINOPRIL *2.5 MG* TAB PO SCH (09:56)
[2021-02-27] MEDS: GABAPENTIN 100 MG CAP PO SCH ×2 (09:56→19:58)
[2021-02-27] MEDS: METOPROLOL TART 25 MG TABLET PO SCH ×2 (09:56→19:59)
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
[2021-02-27 14:00] VITALS: BP 101/70
[2021-02-27] MEDS: MONTELUKAST 10 MG TAB PO SCH (19:58)
[2021-02-27] MEDS: LORazepam 1 MG TAB PO PRN (20:00)
[2021-02-27] MEDS: **NOTE PATIENT COMMENT** MISC XX SCH (20:08)
[2021-02-27 22:00] VITALS: BP 105/68
[2021-02-28 05:59] LABS: HEMATOCRIT 33.3 % (42.0-52.0); HEMOGLOBIN 10.4 g/dl (13.5-17.5); MEAN CORPUSCULAR HEMOGLOBIN 27.6 pg (27.0-33.0); MEAN CORPUSCULAR HGB CONC 31.2 g/dl (32.0-36.5); MEAN CORPUSCULAR VOLUME 88.3 fl (80.0-96.0); PLATELET COUNT, AUTOMATED 243 10^3/uL (150-450); RED BLOOD COUNT 3.77 10^6/uL (4.30-6.10); WHITE BLOOD COUNT 4.2 10^3/uL (4.0-10.0)
[2021-02-28 06:05] VITALS: BP 143/77
[2021-02-28 06:26] LABS: CALCIUM LEVEL 8.9 MG/DL (8.8-10.2); CREATININE FOR GFR 1.26 MG/DL (0.70-1.30); GLOMERULAR FILTRATION RATE 58.6 (>35); POTASSIUM SERUM 4.1 MEQ/L (3.5-5.1)
[2021-02-28] MEDS: LIDOCAINE 5% (LIDODERM) PATCH TD SCH (09:59)
[2021-02-28] MEDS: ATORVASTATIN 20 MG TAB PO SCH (10:00)
[2021-02-28] MEDS: valACYclovir HCL 500 MG TAB PO SCH (10:00)
[2021-02-28] MEDS: APIXABAN 2.5 MG TAB (ELIQUIS) PO SCH ×2 (10:01→21:11)
[2021-02-28] MEDS: levETIRAcetam 250MG TABLET (KEPPRA) PO SCH (10:01)
[2021-02-28] MEDS: DOCUSATE SODIUM 100MG CAPSULE PO SCH ×2 (10:01→21:10)
[2021-02-28] MEDS: FERROUS SULFATE 325MG TAB PO SCH (10:01)
[2021-02-28] MEDS: allopurinoL 100 MG TAB PO SCH (10:01)
[2021-02-28] MEDS: OMEPRAZOLE 20 MG CAP PO SCH (10:02)
[2021-02-28] MEDS: METOPROLOL TART 25 MG TABLET PO SCH ×2 (10:02→21:11)
[2021-02-28] MEDS: POTASSIUM CHLORIDE 10 MEQ SR TABLET PO SCH (10:02)
[2021-02-28] MEDS: LISINOPRIL *2.5 MG* TAB PO SCH (10:02)
[2021-02-28] MEDS: FUROSEMIDE 40 MG TAB PO SCH (10:03)
[2021-02-28] MEDS: GABAPENTIN 100 MG CAP PO SCH ×2 (10:03→21:11)
[2021-02-28 14:00] VITALS: BP 125/75
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
[2021-02-28] MEDS: **NOTE PATIENT COMMENT** MISC XX SCH (21:11)
[2021-02-28] MEDS: MONTELUKAST 10 MG TAB PO SCH (21:11)
[2021-03-01 06:00] VITALS: BP 147/79
[2021-03-01] MEDS: valACYclovir HCL 500 MG TAB PO SCH (09:06)
[2021-03-01] MEDS: FERROUS SULFATE 325MG TAB PO SCH (09:06)
[2021-03-01] MEDS: allopurinoL 100 MG TAB PO SCH (09:06)
[2021-03-01] MEDS: DOCUSATE SODIUM 100MG CAPSULE PO SCH ×2 (09:06→20:59)
[2021-03-01] MEDS: APIXABAN 2.5 MG TAB (ELIQUIS) PO SCH ×2 (09:06→21:00)
[2021-03-01] MEDS: levETIRAcetam 250MG TABLET (KEPPRA) PO SCH (09:06)
[2021-03-01] MEDS: ATORVASTATIN 20 MG TAB PO SCH (09:06)
[2021-03-01] MEDS: GABAPENTIN 100 MG CAP PO SCH ×2 (09:07→21:00)
[2021-03-01] MEDS: LISINOPRIL *2.5 MG* TAB PO SCH (09:07)
[2021-03-01] MEDS: POTASSIUM CHLORIDE 10 MEQ SR TABLET PO SCH (09:07)
[2021-03-01] MEDS: FUROSEMIDE 40 MG TAB PO SCH (09:07)
[2021-03-01] MEDS: OMEPRAZOLE 20 MG CAP PO SCH (09:07)
[2021-03-01] MEDS: METOPROLOL TART 25 MG TABLET PO SCH ×2 (09:08→21:00)
[2021-03-01] MEDS: LIDOCAINE 5% (LIDODERM) PATCH TD SCH (09:09)
[2021-03-01] MEDS ORDERED: PILL CUTTER 1 EACH XX PRN (09:10)
--- NOTE | 2021-03-01 10:03 | ECGEPIP ---
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 No remarkable changes Electronically Signed on 03-01-2021 10:03:02 EDT by Sumanth He
[2021-03-01] MEDS ORDERED: MOM 30ML SUSPENSION UDC PO PRN (10:15)
[2021-03-01 14:00] VITALS: BP 118/59
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
[2021-03-01] MEDS: LORazepam 1 MG TAB PO PRN (16:36)
[2021-03-01] MEDS: QUEtiapine FUMARATE 12.5 MG HALF-TAB PO SCH (20:59)
[2021-03-01] MEDS: MONTELUKAST 10 MG TAB PO SCH (20:59)
[2021-03-01] MEDS: **NOTE PATIENT COMMENT** MISC XX SCH (21:00)
[2021-03-01] MEDS: ACETAMINOPHEN TAB 650MG DOSE (2X325MG) PO PRN (21:00)
[2021-03-01 22:00] VITALS: BP 130/64
[2021-03-02 06:00] VITALS: BP 145/67
[2021-03-02 06:51] LABS: HEMOGLOBIN 10.6 g/dl (13.5-17.5); MEAN CORPUSCULAR HEMOGLOBIN 27.7 pg (27.0-33.0); MEAN CORPUSCULAR HGB CONC 31.2 g/dl (32.0-36.5); PLATELET COUNT, AUTOMATED 251 10^3/uL (150-450); RED BLOOD COUNT 3.82 10^6/uL (4.30-6.10); WHITE BLOOD COUNT 4.3 10^3/uL (4.0-10.0)
[2021-03-02 07:10] LABS: BLOOD UREA NITROGEN 19 MG/DL (7-18); CALCIUM LEVEL 8.7 MG/DL (8.8-10.2); CARBON DIOXIDE LEVEL 33 MEQ/L (21-32); CHLORIDE LEVEL 109 MEQ/L (98-107); CREATININE FOR GFR 1.23 MG/DL (0.70-1.30); GLOMERULAR FILTRATION RATE > 60.0 (>35); GLUCOSE, FASTING 86 MG/DL (70-100); SODIUM LEVEL 145 MEQ/L (136-145)
[2021-03-02] MEDS: levETIRAcetam 250MG TABLET (KEPPRA) PO SCH (08:26)
[2021-03-02] MEDS: POTASSIUM CHLORIDE 10 MEQ SR TABLET PO SCH (08:26)
[2021-03-02] MEDS: GABAPENTIN 100 MG CAP PO SCH ×2 (08:26→20:26)
[2021-03-02] MEDS: DOCUSATE SODIUM 100MG CAPSULE PO SCH ×2 (08:26→20:26)
[2021-03-02] MEDS: LORazepam 1 MG TAB PO PRN ×2 (08:26→20:26)
[2021-03-02] MEDS: ATORVASTATIN 20 MG TAB PO SCH (08:26)
[2021-03-02] MEDS: FERROUS SULFATE 325MG TAB PO SCH (08:26)
[2021-03-02] MEDS: QUEtiapine FUMARATE 12.5 MG HALF-TAB PO SCH ×2 (08:27→20:26)
[2021-03-02] MEDS: allopurinoL 100 MG TAB PO SCH (08:27)
[2021-03-02] MEDS: LISINOPRIL *2.5 MG* TAB PO SCH (08:27)
[2021-03-02] MEDS: valACYclovir HCL 500 MG TAB PO SCH (08:28)
[2021-03-02] MEDS: OMEPRAZOLE 20 MG CAP PO SCH (08:28)
[2021-03-02] MEDS: METOPROLOL TART 25 MG TABLET PO SCH ×2 (08:28→20:28)
[2021-03-02] MEDS: APIXABAN 2.5 MG TAB (ELIQUIS) PO SCH ×2 (08:29→20:26)
[2021-03-02] MEDS: LIDOCAINE 5% (LIDODERM) PATCH TD SCH (08:29)
[2021-03-02] MEDS: FUROSEMIDE 40 MG TAB PO SCH (08:29)
[2021-03-02] MEDS: POLYVINYL ALCOHOL OPHTH SOLN 15 ML(LIQUITEARS) OU PRN (08:30)
--- NOTE | 2021-03-02 13:22 | IPNPDOC ---
Subjective Date Seen The patient was seen on 03/02/21. Subjective Chief Complaint/HPI Mr. Mcrae is an 80 year old male with diastolic CHF and atrial fibrillation on apixaban who is here for acute CHF exacerbation and COLLEEN. I was standing at the door way while he was sitting in the chair. I waved at him, but it looks like he could not see me. His vision is poor. I went to speak with him. He denies any chest pain or dyspnea. He is upset that he has to stay here. Patient still thinks he has 3 aids at home. I told him he only had 1. He kept arguing with me saying he had one. Patient will need placement. I will make him ALC today. Objective Physical Examination General Exam: Positive: Alert, Cooperative Eye Exam: Negative: Sclera icteric ENT Exam: Positive: Atraumatic Neck Exam: Positive: Supple Chest Exam: Positive: Clear to auscultation Heart Exam: Positive: Rate Normal, Irregular Rhythm Abdomen Exam: Positive: Normal bowel sounds, Soft; Negative: Tenderness Male Exam: Positive: Edema (bilateral pitting edema) Neuro Exam: Positive: Normal Speech Psych Exam: Negative: Memory Intact Assessment /Plan Assessment Mr. Mcrae is an 80 year old male with diastolic CHF and atrial fibrillation on apixaban who is here for acute CHF exacerbation and COLLEEN. There is question if he is able to care for self at home. PFS was consulted. Recommendations appreciated. Patient cannot appreciate the situation he is in and has poor judgement. Psychiatry, Dr. Benjamin evaluated patient. Patient is delusional and psychotic. Patient cannot make decisions on discharge or treatment. qTC is not prolonged. Started patient on Seroquel Plan/VTE VTE Prophylaxis Ordered?: Yes Plan 1. Acute diastolic heart failure -Echo 11/08/20 demonstrate EF 67%, Grade 1 diastolic disfunction -Continue Furosemide 60mg PO qD 2. COLLEEN -On admission, creatinine was 1.76 -Baseline creatinine closer to 1.1 to 1.2 -Slowly trending downwards -Supportive care -Resolved 3. Atrial fibrillation -Rate controlled -Continue Lopressor -Continue Eliquis 3. Gout -Continue allopurinol 4. Anemia of chronic disease -Stable -Continue to monitor 5. Subclinical hypothyroidism -Elevated TSH with normal free T4 -Patient should follow up outpatient with 6 week TSH 6. 6mm pulmonary nodule in the left upper lobe -Repeat CT scan in 3 to 6 months 7. 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 Dementia -Patient has poor judgement and reasoning which is part of dementia. Possibly Lewybody dementia with his visual hallucinations -Psychiatry evaluated patient. Patient cannot make decisions on treatment or discharge plan -Started Seroquel 12.5mg BID 10. Hallucination -Ordered for UA and CT head. Both negative 11. DVT ppx -Continue Eliquis Disposition: Patient does not have capacity. Brother is power of attorney general. Patient will need placement. I will make patient ALC today. VS, I&O, 24H, Fishbone Vital Signs/I&O Vital Signs Date Time Temp Pulse Resp B/P (MAP) Pulse Ox O2 Delivery O2 Flow Rate FiO2 03/02/21 08:28 57 124/70 03/02/21 06:00 97.1 16 98 Room Air I&O- Last 24 Hours up to 6 AM 03/02/21 06:00 Intake Total 1560 ml Output Total 0 ml Balance 1560 ml Laboratory Data 24H LABS Laboratory Tests 2 03/02/21 06:37: Nucleated Red Blood Cells % (auto) 0.0, Anion Gap 3L, Glomerular Filtration Rate > 60.0, Calcium Level 8.7L CBC/BMP Laboratory Tests 03/02/21 06:37 Microbiology Microbiology 02/23/21 Stool Occult Blood (CHANTAL) - Final, Complete ZORAN LEE DO Mar 02, 2021 13:22
[2021-03-02] MEDS: MONTELUKAST 10 MG TAB PO SCH (20:26)
[2021-03-02] MEDS: **NOTE PATIENT COMMENT** MISC XX SCH (20:30)
[2021-03-03] MEDS ORDERED: HALOPERIDOL 5MG/ML VIAL (J1630 PER 1) IM ONE (00:05)
[2021-03-03] MEDS ORDERED: HALOPERIDOL 5MG/ML VIAL (J1630 PER 1) IM PRN ×2 (00:15→00:55)
--- NOTE | 2021-03-03 01:12 | IPNPDOC ---
Text Note Date of Service Significant event. The patient was seen on 03/03/21. NOTE Notified pt notably agitated, cussing and kicking staff. Pt seen at bedside he is alert, but confused- hallucinating. Limitation on what he is perceiving given he is yelling and unable to converse as he is yelling obscenities. He is able to purposefully move all extremities, staff is at bedside gently maintaining pt extremities to not kick out of bed. He is wearing mittens and he did pull out his IV. He reports he wants to get OOB, but unfortunately, he is a fall risk presently after evening medication. RN reported she worked to ambulate pt this evening, and as he started to sway with ambulation she brought him back to bed and then he began to become more agitated throughout night while in bed. During exam- Offer made to sit up in bed like a chair and even have staff sit in room with him to help him walk around room when he has urge to get up, but only if pt stable and strong enough to stand first. Pt unable to converse- he is notably agitated and cussing - this is a limitation to have a calm discussion at this point. Additionally, he is threatening to hit staff. Given the escalation of pt behavior acutely tonight- question if pt is reacting to medication vs pt having strong emotion to him interpreting loss of independence with underlying behavioral disturbances at baseline. Reportedly, earlier in evening pt was told regarding placement and not "going home" which may have added to agitation. Unfortunately, given his extreme behavioral change and safety challenge to himself and others; will try to offset the aggression with haldol tonight and continue to attempt de-escalation techniques. The goal is to not restrain pt. WCTM. VS,Fishbone, I+O VS, Fishbone, I+O Laboratory Tests 03/02/21 06:37 Vital Signs Date Time Temp Pulse Resp B/P (MAP) Pulse Ox O2 Delivery O2 Flow Rate FiO2 03/02/21 20:28 73 108/47 03/02/21 06:00 97.1 16 98 Room Air I&O- Last 24 Hours up to 6 AM 03/03/21 06:00 Intake Total 1150 ml Output Total 200 ml Balance 950 ml GUNNER GUERRERO NP Mar 03, 2021 01:11
[2021-03-03 06:00] VITALS: BP 152/80
[2021-03-03] MEDS: LIDOCAINE 5% (LIDODERM) PATCH TD SCH (10:58)
[2021-03-03] MEDS: FERROUS SULFATE 325MG TAB PO SCH (10:58)
[2021-03-03] MEDS: ATORVASTATIN 20 MG TAB PO SCH (10:58)
[2021-03-03] MEDS: OMEPRAZOLE 20 MG CAP PO SCH (10:59)
[2021-03-03] MEDS: POTASSIUM CHLORIDE 10 MEQ SR TABLET PO SCH (10:59)
[2021-03-03] MEDS: allopurinoL 100 MG TAB PO SCH (10:59)
[2021-03-03] MEDS: QUEtiapine FUMARATE 12.5 MG HALF-TAB PO SCH ×2 (10:59→20:20)
[2021-03-03] MEDS: APIXABAN 2.5 MG TAB (ELIQUIS) PO SCH ×2 (10:59→20:20)
[2021-03-03] MEDS: levETIRAcetam 250MG TABLET (KEPPRA) PO SCH (10:59)
[2021-03-03] MEDS: FUROSEMIDE 40 MG TAB PO SCH (11:00)
[2021-03-03] MEDS: valACYclovir HCL 500 MG TAB PO SCH (11:00)
[2021-03-03] MEDS: LISINOPRIL *2.5 MG* TAB PO SCH (11:00)
[2021-03-03] MEDS: DOCUSATE SODIUM 100MG CAPSULE PO SCH ×2 (11:00→20:20)
[2021-03-03] MEDS: LORazepam 1 MG TAB PO PRN ×2 (11:00→20:20)
[2021-03-03] MEDS: GABAPENTIN 100 MG CAP PO SCH ×2 (11:01→20:20)
[2021-03-03] MEDS: METOPROLOL TART 25 MG TABLET PO SCH ×2 (11:01→20:21)
[2021-03-03] MEDS: MONTELUKAST 10 MG TAB PO SCH (20:20)
[2021-03-03] MEDS: **NOTE PATIENT COMMENT** MISC XX SCH (20:33)
[2021-03-04 06:09] LABS: HEMATOCRIT 32.6 % (42.0-52.0); HEMOGLOBIN 10.3 g/dl (13.5-17.5); MEAN CORPUSCULAR HEMOGLOBIN 27.9 pg (27.0-33.0); MEAN CORPUSCULAR HGB CONC 31.6 g/dl (32.0-36.5); MEAN CORPUSCULAR VOLUME 88.3 fl (80.0-96.0); PLATELET COUNT, AUTOMATED 236 10^3/uL (150-450); RED BLOOD COUNT 3.69 10^6/uL (4.30-6.10); WHITE BLOOD COUNT 4.2 10^3/uL (4.0-10.0)
[2021-03-04 06:29] LABS: BLOOD UREA NITROGEN 19 MG/DL (7-18); CALCIUM LEVEL 8.4 MG/DL (8.8-10.2); CARBON DIOXIDE LEVEL 33 MEQ/L (21-32); CHLORIDE LEVEL 108 MEQ/L (98-107); CREATININE FOR GFR 1.14 MG/DL (0.70-1.30); GLOMERULAR FILTRATION RATE > 60.0 (>35); GLUCOSE, FASTING 90 MG/DL (70-100); POTASSIUM SERUM 3.6 MEQ/L (3.5-5.1); SODIUM LEVEL 143 MEQ/L (136-145)
[2021-03-04] MEDS: LISINOPRIL *2.5 MG* TAB PO SCH (09:00)
[2021-03-04] MEDS: ATORVASTATIN 20 MG TAB PO SCH (09:03)
[2021-03-04] MEDS: LORazepam 1 MG TAB PO PRN ×2 (09:03→20:15)
[2021-03-04] MEDS: levETIRAcetam 250MG TABLET (KEPPRA) PO SCH (09:03)
[2021-03-04] MEDS: OMEPRAZOLE 20 MG CAP PO SCH (09:03)
[2021-03-04] MEDS: QUEtiapine FUMARATE 12.5 MG HALF-TAB PO SCH ×2 (09:03→20:15)
[2021-03-04] MEDS: valACYclovir HCL 500 MG TAB PO SCH (09:03)
[2021-03-04] MEDS: FUROSEMIDE 40 MG TAB PO SCH (09:05)
[2021-03-04] MEDS: APIXABAN 2.5 MG TAB (ELIQUIS) PO SCH ×2 (09:05→20:15)
[2021-03-04] MEDS: POTASSIUM CHLORIDE 10 MEQ SR TABLET PO SCH (09:05)
[2021-03-04] MEDS: GABAPENTIN 100 MG CAP PO SCH ×2 (09:05→20:15)
[2021-03-04] MEDS: allopurinoL 100 MG TAB PO SCH (09:06)
[2021-03-04] MEDS: LIDOCAINE 5% (LIDODERM) PATCH TD SCH (09:06)
[2021-03-04] MEDS: DOCUSATE SODIUM 100MG CAPSULE PO SCH ×2 (09:06→20:15)
[2021-03-04] MEDS: METOPROLOL TART 25 MG TABLET PO SCH ×2 (09:06→20:15)
[2021-03-04] MEDS: FERROUS SULFATE 325MG TAB PO SCH (09:06)
--- NOTE | 2021-03-04 09:25 | ECGEPIP ---
[facility] Test Date: 2021-03-04 Pat Name: LIN KERR Department: Room: [place] [address] Gender: Male [employer]: [place] : 1940 Requested By: GUNNER Bond Order Number: [id number] Reading MD: Binta Muller Measurements Intervals [place] Rate: 68 P: 70 [place]: 202 QRS: 29 QRSD: 92 T: 61 QT: 424 QTc: 450 Interpretive Statements Normal sinus rhythm 1ST DEGREE BLOCK IS NEW NSSTTW ABN C/W 03/01/21 Electronically Signed on 03-04-2021 9:25:06 EDT by Binta Muller
[2021-03-04] MEDS: MONTELUKAST 10 MG TAB PO SCH (20:15)
[2021-03-04] MEDS: **NOTE PATIENT COMMENT** MISC XX SCH (21:00)
[2021-03-05] MEDS: traMADol 50 MG TAB PO PRN (00:06)
[2021-03-05 06:00] VITALS: BP 130/78
[2021-03-05] MEDS: OMEPRAZOLE 20 MG CAP PO SCH (08:40)
[2021-03-05] MEDS: ATORVASTATIN 20 MG TAB PO SCH (08:40)
[2021-03-05 08:41] VITALS: BP 130/78
[2021-03-05] MEDS: GABAPENTIN 100 MG CAP PO SCH (08:41)
[2021-03-05] MEDS: METOPROLOL TART 25 MG TABLET PO SCH (08:41)
[2021-03-05] MEDS: QUEtiapine FUMARATE 12.5 MG HALF-TAB PO SCH (08:42)
[2021-03-05] MEDS: LISINOPRIL *2.5 MG* TAB PO SCH (08:42)
[2021-03-05] MEDS: APIXABAN 2.5 MG TAB (ELIQUIS) PO SCH (08:43)
[2021-03-05] MEDS: levETIRAcetam 250MG TABLET (KEPPRA) PO SCH (08:43)
[2021-03-05] MEDS: POTASSIUM CHLORIDE 10 MEQ SR TABLET PO SCH (08:43)
[2021-03-05] MEDS: LIDOCAINE 5% (LIDODERM) PATCH TD SCH (08:44)
[2021-03-05] MEDS: FUROSEMIDE 40 MG TAB PO SCH (08:44)
[2021-03-05] MEDS: allopurinoL 100 MG TAB PO SCH (08:44)
[2021-03-05] MEDS: FERROUS SULFATE 325MG TAB PO SCH (08:44)
[2021-03-05] MEDS: DOCUSATE SODIUM 100MG CAPSULE PO SCH (08:44)
[2021-03-05] MEDS: LORazepam 1 MG TAB PO PRN (08:46)
[2021-03-05] MEDS: valACYclovir HCL 500 MG TAB PO SCH (08:58)
[2021-03-05] MEDS ORDERED: QUET25TA3 PO (09:04)
--- NOTE | 2021-03-05 09:05 | DS.PDOC ---
Discharge Summary General Date of Admission Feb 20, 2021 at 10:46 Date of Discharge 03/05/21 Discharge Summary Mr. Mcrae, presented to [facility] on 02/20/21 found [place] early in the morning and was brought by the EMS team. He has a history of progressive dementia, hypertension, hyperlipidemia, CHF, seizure disorder, atrial fibrillation, BPH, CLL status post chemo, CVA/TIA, CAD, and GERD. He was evaluated by the psychiatric team and was determined that he would need assistance on discharge and deemed that he does not have capacity. Therefore he is being placed and his brother who is the power of marine electronics repairer was in agreement for this plan. He was started on Seroquel 12.5 mg twice daily by recommendations by psychiatry team. During hospitalization, he was started on lisinopril 2.5 mg for control of his blood pressure. His Keppra (for seizures) dose was changed from 500 mg twice daily to 500 mg daily. From his chronic ambulatory medications acetaminophen, amlodipine, and doxepin was discontinued. He is to continue taking furosemide for his diastolic heart failure. Lopressor and Eliquis for his atrial fibrillation. Allopurinol for his gout. He is on Valtrex for history of zoster meningitis and encephalitis in 08/2018. Patient had a 6mm pulmonary nodule in [place]. Recommend CT scan in 3-6 months for evaluation of progression. He was also noted to have subclinical hypothyroidism is recommended for him to have follow-up TSH with primary care physician within 6 weeks. Vital Signs/I&Os Vital Signs Date Time Temp Pulse Resp B/P (MAP) Pulse Ox O2 Delivery O2 Flow Rate FiO2 03/05/21 08:41 68 130/78 03/05/21 06:00 97.1 18 95 Room Air I&O- Last 24 Hours up to 6 AM 03/05/21 06:00 Intake Total 1560 ml Output Total 150 ml Balance 1410 ml Laboratory Data Labs 24H Laboratory Tests 2 03/04/21 12:46: Coronavirus (COVID-19)(PCR) NEGATIVE Microbiology Microbiology 02/23/21 Stool Occult Blood ([facility]AL) - Final, Complete Discharge Medications Scheduled Allopurinol (Allopurinol) 100 Mg Tablet, 100 MG PO DAILY, (Reported) Apixaban (Eliquis) 2.5 Mg Tablet, 2.5 MG PO BID, (Reported) Atorvastatin Calcium (Atorvastatin Calcium) 80 Mg Tablet, 80 MG PO DAILY, (Reported) Cholecalciferol (Vitamin D3) (Vitamin D3) 25 Mcg Tablet, 1,000 UNITS PO DAILY Docusate Sodium (Dok) 100 Mg Capsule, 100 MG PO BID Ferrous Sulfate (Ferosul) 325 Mg Tablet, 325 MG PO DAILY, (Reported) Furosemide (Furosemide) 40 Mg Tablet, 60 MG PO DAILY, (Reported) Gabapentin (Gabapentin) 100 Mg Capsule, 100 MG PO BID, (Reported) Lidocaine (Lidocaine) 5% Adh..patch, 1 PATCH TD DAILY Lisinopril (Lisinopril) 2.5 Mg Tablet, 2.5 MG PO DAILY Metoprolol Succinate (Metoprolol Succinate) 50 Mg Tab.er.24h, 50 MG PO DAILY, (Reported) Montelukast Sodium (Montelukast Sodium) 10 Mg Tablet, 10 MG PO QHS, (Reported) Omeprazole (Omeprazole) 40 Mg Capsule.dr, 40 MG PO DAILY, (Reported) Potassium Chloride (Potassium Chloride) 20 Meq Tablet.er, 40 MEQ PO DAILY, (Reported) Valacyclovir HCl (Valacyclovir) 500 Mg Tablet, 500 MG PO DAILY, (Reported) levETIRAcetam (levETIRAcetam) 500 Mg Tablet, 500 MG PO DAILY Scheduled PRN Acetaminophen (Acetaminophen) 325 Mg Tablet, 650 MG PO Q4H PRN for MILD PAIN or TEMP > 101 Polyvinyl Alcohol (Artificial Tears) 15 Ml Drops, 2 DROP OU TIDP PRN for DRY EYES Miscellaneous Medications [Med Rec Comment] , (Reported) OBTAINED MEDICATION LIST FROM [facility] TO VERIFY MEDS WITH PATIENT Allergies Coded Allergies: ciclopirox (Verified Allergy, Intermediate, rash, hives, 06/12/19) MICHAEL MANTILLA M.D. Mar 05, 2021 09:05
== END 2021-03-05 10:23 | DRG 292 ==
LOC: M ED 03:56 → M ED INP 10:46 → ENRESERV 15:05 → M MSPAV 15:57
PROVIDERS: ADMIT General Practice; ATTEND Internal Medicine
DX: I11.0 Hypertensive heart disease with heart failure (principal); F03.91 Unspecified dementia, unspecified severity, with behavioral disturbance; N17.9 Acute kidney failure, unspecified; R44.3 Hallucinations, unspecified; I50.33 Acute on chronic diastolic (congestive) heart failure; E78.5 Hyperlipidemia, unspecified; G40.909 Epilepsy, unspecified, not intractable, without status epilepticus; I48.91 Unspecified atrial fibrillation; N40.0 Benign prostatic hyperplasia without lower urinary tract symptoms; D64.9 Anemia, unspecified; M10.9 Gout, unspecified; I25.10 Atherosclerotic heart disease of native coronary artery without angina pectoris; Z66 Do not resuscitate; B02.9 Zoster without complications; K21.9 Gastro-esophageal reflux disease without esophagitis; R91.1 Solitary pulmonary nodule; E02 Subclinical iodine-deficiency hypothyroidism; I25.2 Old myocardial infarction; Z92.21 Personal history of antineoplastic chemotherapy; Z85.79 Personal history of other malignant neoplasms of lymphoid, hematopoietic and related tissues; Z96.652 Presence of left artificial knee joint; Z86.73 Personal history of transient ischemic attack (TIA), and cerebral infarction without residual deficits; Z90.49 Acquired absence of other specified parts of digestive tract; Z79.01 Long term (current) use of anticoagulants; Z79.899 Other long term (current) drug therapy; Z88.8 Allergy status to other drugs, medicaments and biological substances; Z20.822 Contact with and (suspected) exposure to COVID-19